=== PATIENT | male | born 1955 | race Caucasian/White ===

== ENCOUNTER → 2019-11-28 10:07 | Outpatient (BNVA) | payer MEDICARE, MEDICAID, SELFPAY | PROVIDERS: Family Provider Nurse Practitioner Family; PCP Nurse Practitioner Family; Visit Provider Nurse Practitioner | DX: G89.29 Other chronic pain (principal); M54.5 Low back pain; M25.562 Pain in left knee; E11.42 Type 2 diabetes mellitus with diabetic polyneuropathy; F17.210 Nicotine dependence, cigarettes, uncomplicated; Z79.891 Long term (current) use of opiate analgesic | CPT/HCPCS: 99213; 99214 ==

== ENCOUNTER → 2020-01-19 14:33 | Outpatient (BNVA) | payer MEDICARE, MEDICAID, SELFPAY | PROVIDERS: Family Provider Nurse Practitioner Family; PCP Nurse Practitioner Family; Visit Provider Anesthesiology | DX: G89.29 Other chronic pain (principal); M54.5 Low back pain; E11.42 Type 2 diabetes mellitus with diabetic polyneuropathy; F17.210 Nicotine dependence, cigarettes, uncomplicated; Z79.891 Long term (current) use of opiate analgesic; Z71.6 Tobacco abuse counseling | CPT/HCPCS: 99214 ==

== ENCOUNTER → 2020-05-24 08:31 | Outpatient (BNVA) | payer MEDICARE, MEDICAID, SELFPAY | PROVIDERS: Family Provider Nurse Practitioner Family; PCP Nurse Practitioner Family; Visit Provider Anesthesiology | DX: G89.29 Other chronic pain (principal); M54.41 Lumbago with sciatica, right side; M54.42 Lumbago with sciatica, left side; E11.42 Type 2 diabetes mellitus with diabetic polyneuropathy; F17.210 Nicotine dependence, cigarettes, uncomplicated; Z79.891 Long term (current) use of opiate analgesic | CPT/HCPCS: 99213; 99214 ==

== ENCOUNTER → 2020-07-24 08:06 | Outpatient (BNVA) | payer MEDICARE, MEDICAID, SELFPAY | PROVIDERS: Family Provider Nurse Practitioner Family; PCP Nurse Practitioner Family; Visit Provider Nurse Practitioner | DX: G89.29 Other chronic pain (principal); M54.42 Lumbago with sciatica, left side; M54.41 Lumbago with sciatica, right side; E11.42 Type 2 diabetes mellitus with diabetic polyneuropathy; I69.30 Unspecified sequelae of cerebral infarction; F17.210 Nicotine dependence, cigarettes, uncomplicated; Z79.891 Long term (current) use of opiate analgesic; Z71.6 Tobacco abuse counseling | CPT/HCPCS: 99213; 99214 ==

== ENCOUNTER → 2020-08-22 08:18 | Outpatient (BNVA) | payer MEDICARE, MEDICAID, SELFPAY | PROVIDERS: Family Provider Nurse Practitioner Family; PCP Nurse Practitioner Family; Visit Provider Anesthesiology | DX: G89.29 Other chronic pain (principal); M54.5 Low back pain; F17.210 Nicotine dependence, cigarettes, uncomplicated; Z79.891 Long term (current) use of opiate analgesic | CPT/HCPCS: 99213; 99214 ==

== ENCOUNTER → 2020-09-25 10:13 | Outpatient (BNVA) | payer MEDICARE, MEDICAID, SELFPAY | PROVIDERS: Family Provider Nurse Practitioner Family; PCP Nurse Practitioner Family; Visit Provider Orthopaedic Surgery | DX: Z96.652 Presence of left artificial knee joint (principal); M54.9 Dorsalgia, unspecified | CPT/HCPCS: 72100; 73560; 73565 ==

== ENCOUNTER → 2020-10-01 11:46 | Outpatient (BNVA) | payer MEDICARE, MEDICAID, SELFPAY | PROVIDERS: Family Provider Nurse Practitioner Family; PCP Nurse Practitioner Family; Visit Provider Family Medicine | DX: E11.9 Type 2 diabetes mellitus without complications (principal); I69.30 Unspecified sequelae of cerebral infarction; M21.372 Foot drop, left foot; J44.9 Chronic obstructive pulmonary disease, unspecified | CPT/HCPCS: 80053; 80061; 83036; 84443; 85025 ==

== ENCOUNTER → 2020-10-17 09:48 | Outpatient (BNVA) | payer MEDICARE, MEDICAID, SELFPAY | PROVIDERS: Family Provider Nurse Practitioner Family; PCP Nurse Practitioner Family; Visit Provider Anesthesiology | DX: G89.29 Other chronic pain (principal); M54.5 Low back pain; F17.210 Nicotine dependence, cigarettes, uncomplicated; Z79.899 Other long term (current) drug therapy; Z79.891 Long term (current) use of opiate analgesic | CPT/HCPCS: 99212; 99214 ==

== ENCOUNTER 2020-10-21 10:22 | Outpatient (CLI) | payer MEDICARE, MEDICAID, SELFPAY ==
--- NOTE | 2020-10-21 11:45 | MR_ITS ---
WS: [id number] MRI LUMBAR SPINE NONCONTRAST TECHNIQUE: Sagittal T1, T2 and STIR imaging. Axial T1 and T2 imaging. CLINICAL INFORMATION: M47.816 - Spondylosis without myelopathy or radiculopathy, lumbar region COMPARISON: None. FINDINGS: Mild lumbar curve. No acute compression. Slight retrolisthesis L4 on L5. L1-L2: Normal. L2-L3: No significant disc bulging. Mild facet arthropathy. Spinal canal and foramen are patent. L3-L4: Mild disc bulging with slight effacement of ventral thecal sac. Mild central canal stenosis. S light impingement traversing L4 nerve roots bilaterally. Moderate facet arthropathy. Foramen are centeno nt. L4-L5: Slight retrolisthesis L4 on L5 with mild disc bulging. Slight effacement of ventral thecal sac . Slight impingement traversing L5 nerve roots bilaterally. Small right foraminal protrusion with con tact of the exiting right L4 nerve root. Moderate right foraminal narrowing. Moderate facet arthropat hy. L5-S1: Mild disc bulging with osteophytic ridging. Moderate right and mild left foraminal narrowing. Slight contact of the traversing S1 nerve root. Moderate facet arthropathy. Visualized pelvic bony structures: Normal. Paravertebral soft tissues: Normal. MR/MR lumbar spine wo con* [id number] IMPRESSION: 1. Mild lumbar curve. No acute compression. Slight retrolisthesis L4 on L5. 2. Right foraminal protrusion L4-5 with slight impingement on the exiting righ t L4 nerve root. Moderate right L4-5 foraminal narrowing. 3. Mild central canal stenosis L3-4 due to disc bulging with facet arthropathy ligament flavum hypertrophy. Slight anterolisthesis L3 on L4. 4. Right eccentric disc osteophyte complex L5-S1 with moderate right foraminal narrowing and slight contact of the far exiting right L5 nerve root. 5. Tiny right pericentral disc osteophyte protrusion L5-S1 contacts the patricia sing right S1 nerve root.
== END 2020-10-21 10:23 | disposition home or self-care (01) ==
LOC: RADSHAW 10:26
PROVIDERS: Family Provider Nurse Practitioner Family; PCP Nurse Practitioner Family; Visit Provider Orthopaedic Surgery
DX: M47.816 Spondylosis without myelopathy or radiculopathy, lumbar region (principal); M51.26 Other intervertebral disc displacement, lumbar region; M25.78 Osteophyte, vertebrae
CPT/HCPCS: 72148

== ENCOUNTER → 2020-10-29 13:48 | Outpatient (BNVA) | payer MEDICARE, MEDICAID, SELFPAY | PROVIDERS: Family Provider Nurse Practitioner Family; PCP Nurse Practitioner Family; Visit Provider Orthopaedic Surgery | DX: M25.552 Pain in left hip (principal) | CPT/HCPCS: 73502 ==

== ENCOUNTER → 2021-01-17 10:04 | Outpatient (BNVA) | payer MEDICARE, MEDICAID, SELFPAY | PROVIDERS: Family Provider Nurse Practitioner Family; PCP Nurse Practitioner Family; Visit Provider Anesthesiology | DX: G89.29 Other chronic pain (principal); M54.5 Low back pain; M25.569 Pain in unspecified knee; M21.372 Foot drop, left foot; F17.210 Nicotine dependence, cigarettes, uncomplicated; Z79.899 Other long term (current) drug therapy; Z79.891 Long term (current) use of opiate analgesic | CPT/HCPCS: 99214 ==

== ENCOUNTER → 2021-03-20 09:29 | Outpatient (BNVA) | payer MEDICARE, MEDICAID, SELFPAY | PROVIDERS: Family Provider Nurse Practitioner Family; PCP Nurse Practitioner Family; Visit Provider Anesthesiology | DX: G89.29 Other chronic pain (principal); M54.5 Low back pain; E11.9 Type 2 diabetes mellitus without complications; F17.210 Nicotine dependence, cigarettes, uncomplicated; Z79.891 Long term (current) use of opiate analgesic | CPT/HCPCS: 62323; J1040; J3490 ==

== ENCOUNTER → 2021-03-21 08:11 | Outpatient (BNVA) | payer MEDICARE, MEDICAID, SELFPAY | PROVIDERS: Family Provider Nurse Practitioner Family; PCP Nurse Practitioner Family; Visit Provider Anesthesiology | DX: G89.29 Other chronic pain (principal); M54.5 Low back pain; M25.569 Pain in unspecified knee; M21.372 Foot drop, left foot; F17.210 Nicotine dependence, cigarettes, uncomplicated; Z79.899 Other long term (current) drug therapy; Z79.891 Long term (current) use of opiate analgesic | CPT/HCPCS: 99214 ==

== ENCOUNTER → 2021-04-09 14:47 | Outpatient (BNVA) | payer MEDICARE, MEDICAID, SELFPAY | PROVIDERS: Family Provider Nurse Practitioner Family; PCP Nurse Practitioner Family; Visit Provider Nurse Practitioner Family | DX: E11.9 Type 2 diabetes mellitus without complications (principal); E55.9 Vitamin D deficiency, unspecified; I10 Essential (primary) hypertension | CPT/HCPCS: 80053; 82306; 83036; 85025 ==

== ENCOUNTER → 2021-05-15 07:53 | Outpatient (BNVA) | payer MEDICARE, MEDICAID, SELFPAY | PROVIDERS: Family Provider Nurse Practitioner Family; PCP Nurse Practitioner Family; Visit Provider Anesthesiology | DX: G89.29 Other chronic pain (principal); M54.5 Low back pain; F17.210 Nicotine dependence, cigarettes, uncomplicated; Z79.891 Long term (current) use of opiate analgesic | CPT/HCPCS: 99213 ==

== ENCOUNTER → 2021-07-16 08:02 | Outpatient (BNVA) | payer MEDICARE, MEDICAID, SELFPAY | PROVIDERS: Family Provider Nurse Practitioner Family; PCP Nurse Practitioner Family; Visit Provider Anesthesiology | DX: G89.29 Other chronic pain (principal); M54.5 Low back pain; F17.210 Nicotine dependence, cigarettes, uncomplicated; Z79.891 Long term (current) use of opiate analgesic | CPT/HCPCS: 99213 ==

== ENCOUNTER → 2021-09-18 07:54 | Outpatient (BNVA) | payer MEDICARE, MEDICAID, SELFPAY | PROVIDERS: Family Provider Nurse Practitioner Family; PCP Nurse Practitioner Family; Visit Provider Anesthesiology | DX: G89.29 Other chronic pain (principal); M54.50 Low back pain, unspecified; F17.200 Nicotine dependence, unspecified, uncomplicated; Z79.899 Other long term (current) drug therapy; Z79.891 Long term (current) use of opiate analgesic; Z71.6 Tobacco abuse counseling | CPT/HCPCS: 99214 ==

== ENCOUNTER 2021-09-25 07:39 | Outpatient (CLI) | payer MEDICARE, MEDICAID, SELFPAY ==
--- NOTE | 2021-09-25 07:45 | USCV_ITS ---
Hudson Mariaelena Age: 66 Gender: M : 1955 Exam Date: 09/25/2021 07:33 Ordering Phys: Quang Lopez DPM Technologist: Robi Bhakta Extension Associate Exam [place] [facility] [place] Indication: PRE PROCEDURE SCREENING RIGHT LEFT Brachial 108.00 mmHg Brachial 143.00 mmHg Pressure (mmHg) Waveform Pressure (mmHg) Waveform 148.00 Above Knee 86.00 137.00 Below Knee 89.00 128.00 ENERGY RATER 74.00 142.00 DPA 90.00 0.99 Ankle/Brachial Index 0.60 123.00 Pre-Exercise Toe Pressure 69.00 0.86 Pre-Exercise Toe/Brachial Index 0.48 FINDINGS Normal resting NATALYA and TBI on the right side Diminished resting TBI and NATALYA on the left side Normal PVR waveforms on the right side Low velocity delayed peaking PVR waveforms at the calf and at the angle on the left side CONCLUSIONS 1. No significant arterial obstruction on the right side 2. Features of moderately severe peripheral artery disease possibly involving the superior femoral artery on the left side Dr Janna Morley MD [facility] (Electronically Signed) Final Date: 26 September 2021 13:06 S
== END 2021-09-25 07:40 | disposition home or self-care (01) ==
LOC: RAD 07:42
PROVIDERS: PCP Nurse Practitioner Family; Visit Provider Podiatrist Foot & Ankle Surgery
DX: Z01.818 Encounter for other preprocedural examination (principal)
CPT/HCPCS: 93923

== ENCOUNTER → 2021-11-20 07:49 | Outpatient (BNVA) | payer MEDICARE, MEDICAID, SELFPAY | PROVIDERS: PCP Nurse Practitioner Family; Visit Provider Anesthesiology | DX: G89.29 Other chronic pain (principal); M54.50 Low back pain, unspecified; M21.372 Foot drop, left foot; F17.200 Nicotine dependence, unspecified, uncomplicated; Z79.899 Other long term (current) drug therapy; Z79.891 Long term (current) use of opiate analgesic | CPT/HCPCS: 99213 ==

== ENCOUNTER → 2021-11-27 11:54 | Outpatient (BNVA) | payer MEDICARE, MEDICAID, SELFPAY | PROVIDERS: PCP Nurse Practitioner Family; Visit Provider Nurse Practitioner Family | DX: M54.50 Low back pain, unspecified (principal); G89.29 Other chronic pain; E11.9 Type 2 diabetes mellitus without complications; Z12.5 Encounter for screening for malignant neoplasm of prostate | CPT/HCPCS: 80053; 81003; 83036; 85025; G0103 ==

== ENCOUNTER → 2021-11-28 09:28 | Outpatient (BNVA) | payer MEDICARE, MEDICAID, SELFPAY | PROVIDERS: PCP Nurse Practitioner Family; Visit Provider Nurse Practitioner Family | DX: E11.9 Type 2 diabetes mellitus without complications (principal) | CPT/HCPCS: 84443 ==

== ENCOUNTER → 2021-12-16 10:42 | Outpatient (BNVA) | payer MEDICARE, MEDICAID, SELFPAY | PROVIDERS: PCP Nurse Practitioner Family; Visit Provider Nurse Practitioner Family | DX: R71.8 Other abnormality of red blood cells (principal) | CPT/HCPCS: 80500; 82270; 82607; 82746; 83550; 88184; 88185 ==

== ENCOUNTER → 2022-01-22 12:43 | Outpatient (BNVA) | payer MEDICARE, MEDICAID, SELFPAY | PROVIDERS: PCP Nurse Practitioner Family; Visit Provider Internal Medicine | DX: I70.212 Atherosclerosis of native arteries of extremities with intermittent claudication, left leg (principal); E11.40 Type 2 diabetes mellitus with diabetic neuropathy, unspecified; I10 Essential (primary) hypertension | CPT/HCPCS: 99204 ==

== ENCOUNTER → 2022-04-23 12:26 | Outpatient (BNVA) | payer MEDICARE, MEDICAID, SELFPAY | PROVIDERS: PCP Nurse Practitioner Family; Visit Provider Internal Medicine | DX: I70.212 Atherosclerosis of native arteries of extremities with intermittent claudication, left leg (principal); E11.40 Type 2 diabetes mellitus with diabetic neuropathy, unspecified; I10 Essential (primary) hypertension; F17.210 Nicotine dependence, cigarettes, uncomplicated; Z79.84 Long term (current) use of oral hypoglycemic drugs | CPT/HCPCS: 99214 ==

== ENCOUNTER → 2022-04-27 13:06 | Outpatient (BNVA) | payer MEDICARE, MEDICAID, SELFPAY | PROVIDERS: PCP Nurse Practitioner Family; Referring Provider Specialist; Visit Provider Specialist | DX: M25.562 Pain in left knee (principal); Z96.652 Presence of left artificial knee joint | CPT/HCPCS: 73560; 73565; 99204 ==

== ENCOUNTER 2022-05-05 06:00 | Outpatient (RCR) | payer MEDICARE, MEDICAID, SELFPAY | END 2022-05-07 23:59 | disposition home or self-care (01) | LOC: WPT 06:00 | PROVIDERS: PCP Nurse Practitioner Family; Referring Provider Specialist; Visit Provider Specialist | DX: M25.562 Pain in left knee (principal) | CPT/HCPCS: 97110; 97112; 97161 ==

== ENCOUNTER 2022-05-08 06:00 | Outpatient (RCR) | payer MEDICARE, MEDICAID, SELFPAY | END 2022-06-07 23:59 | disposition home or self-care (01) | LOC: WPT 06:00 | PROVIDERS: PCP Nurse Practitioner Family; Referring Provider Specialist; Visit Provider Specialist | DX: M25.562 Pain in left knee (principal) | CPT/HCPCS: 97110; 97112 ==

== ENCOUNTER 2022-06-08 06:00 | Outpatient (RCR) | payer MEDICARE, MEDICAID, SELFPAY | END 2022-07-08 23:59 | disposition home or self-care (01) | LOC: WPT 06:00 | PROVIDERS: PCP Nurse Practitioner Family; Visit Provider Specialist | DX: M25.562 Pain in left knee (principal) | CPT/HCPCS: 97110; 97112; 97164; 97530 ==

== ENCOUNTER 2022-07-09 06:00 | Outpatient (RCR) | payer MEDICARE, MEDICAID, SELFPAY | END 2022-08-07 23:59 | disposition home or self-care (01) | LOC: WPT 06:00 | PROVIDERS: PCP Nurse Practitioner Family; Visit Provider Specialist | DX: M25.562 Pain in left knee (principal) | CPT/HCPCS: 97110 ==

== ENCOUNTER 2022-12-28 14:00 | Emergency (ER) | payer MEDICARE, MEDICAID, SELFPAY ==
[2022-12-28 14:12] VITALS: BP 117/79; PULSE 95; TEMP 36.7; O2SAT 94; BMI 23.4
--- NOTE | 2022-12-28 14:22 | XR_ITS ---
WS: [id number] Exam: XR chest 1V portable [id number] Date/Time of Exam: 12/28/2022 2:22 PM Reason For Exam: dyspnea/cough Comparison 12/02/2018. The lungs are hyperinflated. No consolidating infiltrates. Normal cardiomediastinal silhouette. Large calcified granuloma along the left infrahilar region. Fibrous scarring and pleural thickening seen i n the right upper lung zone. Bony structures are intact. No pleural effusion. XR/XR chest 1V portable [id number] IMPRESSION: 1. Pulmonary hyperinflation suggesting obstructive lung disease. No acute infil trates. 2. Chronic pleural and pulmonary changes in the right upper lung zone.
--- NOTE | 2022-12-28 14:24 | CTR_ITS ---
PROCEDURE INFORMATION: Exam: CT Head Without Contrast Exam date and time: 12/28/2022 3:37 PM Age: 67 years old Clinical indication: Weakness, extremity; Left; Patient HX: HX of RT sided stroke; Additional info: L weakness TECHNIQUE: Imaging protocol: Computed tomography of the head without contrast. Radiation optimization: All CT scans at this facility use at least one of these dose optimization techniques: automated exposure control; mA and/or kV adjustment per patient size (includes targeted exams where dose is matched to clinical indication); or iterative reconstruction. Other protocol: This patient has received 0 known CTs and 0 known cardiac nuclear medicine studies in the 12 months prior to the current study. COMPARISON: No relevant prior studies available. RADIATION DOSE METRICS: Total DLP (mGy-cm): 1151.6 FINDINGS: Brain: Encephalomalacia in the right fronto parietal and temporal lobe.The batres-white differentiation is maintained. No hemorrhage. No edema.There are mild periventricular and subcortical lucencies consistent with chronic microvascular ischemic changes. Cerebral ventricles: No ventriculomegaly. Paranasal sinuses: Visualized sinuses are unremarkable. No fluid levels. Mastoid air cells: Visualized mastoid air cells are well aerated. Bones/joints: Unremarkable. No acute fracture. Soft tissues: Unremarkable. Right cataract surgery. CT/CT head wo con* [id number] IMPRESSION: No acute intracranial abnormality. Chronic microvascular ischemic changes.
[2022-12-28 14:31] LABS: Basophils # 0.1 10^3/uL (0.0-0.1); Basophils % 0.7 %; Eosinophils # 0.1 10^3/uL (0.0-0.8); Eosinophils % 1.1 %; Hemoglobin 17.4 g/dL (11.7-16.6); Lymphocytes # 1.6 10^3/uL (0.8-4.8); Mean Corpuscular HGB Conc 32.8 g/dL (30.0-36.0); Mean Corpuscular Hemoglobin 31.8 pg (28.0-34.0); Mean Corpuscular Volume 96.7 fl (80-94); Mean Platelet Volume 12.4 fL (7.4-10.4); Monocytes # 0.5 10^3/uL (0.2-0.9); Monocytes % 5.6 %; Neutrophils # 7.15 10^3/uL (1.8-7.7); Neutrophils % 74.8 %; Nucleated Red Blood Cells % 0 %; Platelet Count 177 10^3/cmm (130-400); Red Blood Count 5.48 10^6/uL (4.1-5.3); Red Cell Distribution Width 12.4 % (12.1-15.1); White Blood Count 9.6 10^3/uL (4.0-10.0)
--- NOTE | 2022-12-28 14:32 | ED_ITS ---
HPI - General Adult General: Chief complaint: General Medical Stated complaint: DEHYDRATED Time Seen by Provider: 12/28/22 14:21 Source: patient Mode of arrival: EMS History of Present Illness: 67-year-old male presents emergency complaining left-sided weakness he woke up with it this morning it was worse than his usual. He has a little bit of a headache as well he states all of his symptoms have resolved after EMS gave him IV fluids first liter is not even completed and he states he is completely resolved and feeling much better now. He denies chest pain or abdominal pain or any further symptoms. Headache is rather mild. He states his functional ability on his left side is back to where his baseline is from his previous stroke Onset (ago): minute(s) Severity: mild Associated symptoms: Deny chest pain, confusion, cough, diaphoresis, decreased appetite, dyspnea, fevers/chills, headache(s), malaise, nausea, rash, palpitations, seizures, short of breath, syncope, vomiting or weakness Review of Systems Const: Denies: fever(s), chills, fatigue, malaise or diaphoresis ENMT: Denies: throat pain, ear or mastoid pain, nasal discharge or nasal congestion Card: Denies: chest pain, palpitations or syncope Resp: Denies: dyspnea GI: Denies: nausea or vomiting : Denies: flank pain, dysuria, urinary frequency or urinary urgency Skin/Breast: Denies: rash Neuro: Denies: headache(s) or confusion PFSH ED PFSH: Medical History Chronic low back pain Diabetic foot Encounter for long-term opiate analgesic use Essential hypertension Long-term use of high-risk medication Opioid contract exists Prostate cancer screening Smoker unmotivated to quit Toenail deformity Vitamin D deficiency Surgical History Hx of toe surgery PIN PLACEMENT IN LEFT GREAT TOE S/P knee replacement LEFT KNEE REPLACEMENT 2019 Family History Other CHF (congestive heart failure) Cancer Social History Smoking and tobacco status: current every day smoker cigarettes Packs smoked per day: 2 Alcohol intake: current Alcohol intake frequency: holidays/special occasions only Alcohol type: beer Physical Exam Const: GENERAL APPEARANCE: cooperative and comfortable ORIENTATION/CONSCIOUSNESS: Yes awake, Yes oriented to person, Yes oriented to place and Yes oriented to time HENMT: COMMON NORMALS: normocephalic, atraumatic and hearing grossly normal bilaterally HEAD & SCALP: normocephalic and atraumatic Resp: COMMON NORMALS: normal respiratory effort, No retractions, No use of accessory muscles and clear to auscultation bilaterally AUSCULTATION: clear to auscultation bilaterally Cardio: COMMON NORMALS: regular rate, regular rhythm and No murmurs present (Cardio) RATE: regular rate RHYTHM: regular rhythm GI: COMMON NORMALS: Soft to palpation and No hepatosplenomegaly present AUSCULTATION: Yes normoactive bowel sounds PALPATION: Yes Soft to palpation, No Tenderness to palpation present (GI), No Guarding due to palpation present (GI) and Yes No hepatosplenomegaly present Extremity: COMMON NORMALS: normal to inspection, capillary refill normal, no clubbing, cyanosis or edema, no calf tenderness and no pedal edema Neuro: SENSORIUM/ORIENTATION: Yes oriented to person, Yes oriented to place and Yes oriented to time Skin: COMMON NORMALS: no rashes or lesions noted GENERAL SKIN EXAM: no rashes or lesions noted Course Vital Signs: Vital signs: Vital Signs Temperature 98.1 F 12/28/22 14:12 Pulse Rate 87 12/28/22 16:30 Respiratory Rate 18 12/28/22 16:30 Blood Pressure 114/72 12/28/22 16:30 Pulse Oximetry 97 12/28/22 16:30 Oxygen Delivery Me thod 12/28/22 16:30 [facility] - General Adult Medical Decision Making No acute neurologic deficits. All of his deficits are residual from his previous strokes otherwise doing well at this time.. He is improved with fluids. He has no focal deficits this time we will go ahead and discharge patient home have him follow-up with his primary care doctor return if is further problems. Lab Data 12/28/22 12:49 Radiology Impressions Chest X-Ray 12/28/22 14:22 IMPRESSION: 1. Pulmonary hyperinflation suggesting obstructive lung disease. No acute infiltrates. 2. Chronic pleural and pulmonary changes in the right upper lung zone. Head CT 12/28/22 14:24 IMPRESSION: No acute intracranial abnormality. Chronic microvascular ischemic changes. Laboratory Results WBC 9.6 10^3/uL (4.0-10.0) 12/28/22 12:49 RBC 5.48 10^6/uL (4.1-5.3) H 12/28/22 12:49 Hgb 17.4 g/dL (11.7-16.6) H 12/28/22 12:49 Hct 53.0 % (42.0-52.0) H 12/28/22 12:49 MCV 96.7 fl (80-94) H 12/28/22 12:49 MCH 31.8 pg (28.0-34.0) 12/28/22 12:49 MCHC 32.8 g/dL (30.0-36.0) 12/28/22 12:49 RDW 12.4 % (12.1-15.1) 12/28/22 12:49 Plt Count 177 10^3/cmm (130-400) 12/28/22 12:49 MPV 12.4 fL (7.4-10.4) H 12/28/22 12:49 Neut % (Auto) 74.8 % 12/28/22 12:49 Lymph % (Auto) 17.0 % 12/28/22 12:49 [place]ade % (Auto) 5.6 % 12/28/22 12:49 Eos % (Auto) 1.1 % 12/28/22 12:49 Baso % (Auto) 0.7 % 12/28/22 12:49 Neut # (Auto) 7.15 10^3/uL (1.8-7.7) 12/28/22 12:49 Lymph # (Auto) 1.6 10^3/uL (0.8-4.8) 12/28/22 12:49 [place]ade # (Auto) 0.5 10^3/uL (0.2-0.9) 12/28/22 12:49 Eos # (Auto) 0.1 10^3/uL (0.0-0.8) 12/28/22 12:49 Baso # (Auto) 0.1 10^3/uL (0.0-0.1) 12/28/22 12:49 Nucleated RBC % (auto) 0 % 12/28/22 12:49 Nucleated RBCs # 0.0 /100WBC 12/28/22 12:49 Sodium 135 mmol/L (136-145) L 12/28/22 15:33 Potassium 4.1 mmol/L (3.5-5.1) 12/28/22 15:33 Chloride 97 mmol/L (98-107) L 12/28/22 15:33 Carbon Dioxide 27 mmol/L (22-29) 12/28/22 15:33 Anion Gap 15.1 (5-19) 12/28/22 15:33 BUN 10 mg/dL (8-23) 12/28/22 15:33 Creatinine 0.8 mg/dL (0.7-1.2) 12/28/22 15:33 GFR Calculation 95.8 mL/min (90-130) 12/28/22 15:33 Glucose 176 mg/dL (65-115) H 12/28/22 15:33 Calculated Osmolality 283 mOsm/kg (285-295) L 12/28/22 15:33 Calcium 9.3 mg/dL (8.5-10.5) 12/28/22 15:33 Total Bilirubin 0.9 mg/dL (0.15-1.2) 12/28/22 15:33 AST 15 U/L (0-40) 12/28/22 15:33 ALT 13 U/L (0-41) 12/28/22 15:33 Alkaline Phosphatase 121 U/L (40-130) 12/28/22 15:33 Creatine Kinase 70 U/L (39-308) 12/28/22 15:33 Total Protein 7.4 g/dL (6.6-8.7) 12/28/22 15:33 Albumin 3.7 g/dL (3.5-5.2) 12/28/22 15:33 Globulin 3.7 g/dL (1.3-4.6) 12/28/22 15:33 Urine Color Yellow (Yellow) 12/28/22 15:13 Urine Appearance Clear (CLEAR) 12/28/22 15:13 Urine pH 7 (5-7) 12/28/22 15:13 Ur Specific [place] 1.005 (1.005-1.030) 12/28/22 15:13 Urine Protein Neg (Negative) 12/28/22 15:13 Urine Glucose (UA) 1+ (Normal) H 12/28/22 15:13 Urine Ketones Negative (Negative) 12/28/22 15:13 Urine Blood Neg (Negative) 12/28/22 15:13 Urine Nitrate Negative (Negative) 12/28/22 15:13 Urine Bilirubin Neg (Negative) 12/28/22 15:13 Urine Urobilinogen Norm mg/dL (Negative) 12/28/22 15:13 Ur Leukocyte Esterase Negative (Negative) 12/28/22 15:13 Discharge Plan Discharge Patient Disposition: Home Clinical Impression: Hypotension, postural, History of CVA with residual deficit Condition: Stable Prescriptions: No Action (DME) Diabetic shoes with 3 sets of insoles See Rx Instructions .Route .MEDSUPPLY Qty: 1 0RF Rx Instructions: As directed silver sulfadiazine 1 % cream 1 applic topical BID 14 Days Qty: 50 2RF Rx Instructions: apply a 1.5 mm thickness (DME) custom molded accommodative orthotics See Rx Instructions .Route .MEDSUPPLY Qty: 1 0RF Rx Instructions: As directed by chaka and elieser gabapentin 400 mg capsule 400 mg PO TID 30 Days Qty: 90 1RF doxycycline hyclate 100 mg capsule 100 mg PO BID 7 Days Qty: 14 0RF aspirin 81 mg tablet,delayed release (DR/EC) See Rx Instructions .ROUTE .COMPLEX Qty: 30 0RF Dose Instruction: TAKE ONE TABLET BY MOUTH DAILY FOR 30 DAYS Rx Instructions: TAKE ONE TABLET BY MOUTH DAILY FOR 30 DAYS Trulicity 1.5 mg/0.5 mL pen injector See Rx Instructions .ROUTE .COMPLEX Qty: 2 2RF Dose Instruction: INJECT 1.5 mg SUB-Q ONCE A WEEK Rx Instructions: INJECT 1.5 mg SUB-Q ONCE A WEEK tamsulosin 0.4 mg capsule See Rx Instructions .ROUTE .COMPLEX Qty: 30 2RF Dose Instruction: TAKE ONE CAPSULE BY MOUTH EVERY DAY; (PT MUST MAKE APPT BEFORE ADDITIONAL REFILLS) Rx Instructions: TAKE ONE CAPSULE BY MOUTH EVERY DAY; (PT MUST MAKE APPT BEFORE ADDITIONAL REFILLS) atorvastatin 20 mg tablet See Rx Instructions .ROUTE .COMPLEX Qty: 30 2RF Dose Instruction: TAKE ONE TABLET BY MOUTH DAILY Rx Instructions: TAKE ONE TABLET BY MOUTH DAILY metformin 1,000 mg tablet See Rx Instructions .ROUTE .COMPLEX Qty: 180 0RF Dose Instruction: TAKE 1 TABLET BY MOUTH TWICE DAILY FOR 90 DAYS Rx Instructions: TAKE 1 TABLET BY MOUTH TWICE DAILY FOR 90 DAYS Discharge Orders: Discharge ED (Routine); Ordered 12/28/22 Ordered By: Mauricio Gilliland Referrals: ABNER Carson, PR[employer] SUPPORT REP [Primary Care Provider] - Discharge Diet: Usual diet Discharge Activity: Resume usual activity Patient Instructions: Opioid Safety, Pain Management Activity Restrictions/Additional Instructions: You were seen today for a brief episode of weakness. Your symptoms improved after given IV fluids CT of your head and laboratory tests did not show any acute changes. Strongly encouraged to stop smoking. Continue all your previous medications and follow-up as needed Coding Level of Care Code ED Armature Winder for Sanjay Shafer
--- NOTE | 2022-12-28 14:45 | ECG_ITS ---
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 Measurements Intervals Prentiss Rate: P: 0 AR: 0 QRS: 0 QRSD: 0 T: 0 QT: 0 QTc: 0 Interpretive Statements Sinus rhythm with short runs of PAT. Poor R wave progression. ATYPICAL ECG WARNING: DATA QUALITY MAY AFFECT INTERPRETATION Compared to ECG 12/02/2018 12:22:53 Sinus rhythm no longer present Myocardial infarct finding no longer present Electronically Signed On 12-28-2022 19:09:28 HEDDLER TIER by Janna Morley M.D. [email or web address] [id number]
[2022-12-28 15:03] VITALS: BP 93/70; RESP 18; O2SAT 95
[2022-12-28 15:17] VITALS: BP 105/79; BP 107/85; BP 96/70; PULSE 86; PULSE 93; PULSE 94
[2022-12-28 15:25] LABS: Add Urine Microscopic? NO; Charge for UA Resulting for Rev
[2022-12-28 15:32] LABS: Urine Appearance Clear (CLEAR); Urine Color Yellow (Yellow)
[2022-12-28 15:33] LABS: Bilirubin Urine Neg (Negative); Blood Urine Neg (Negative); Glucose Urine UA 1+ (Normal); Ketones Urine Negative (Negative); Leukocyte Esterase Urine Negative (Negative); Nitrate Urine Negative (Negative); Protein Urine Neg (Negative); Specific Gravity, Urine 1.005 (1.005-1.030); Urobilinogen Urine Norm (Negative); pH Urine 7 (5-7)
[2022-12-28 15:58] LABS: Alanine Aminotransferase 13 U/L (0-41); Albumin Level 3.7 g/dL (3.5-5.2); Alkaline Phosphatase 121 U/L (40-130); Anion Gap 15.1 (5-19); Aspartate Amino Transferase 15 U/L (0-40); Blood Urea Nitrogen 10 mg/dL (8-23); Calcium 9.3 mg/dL (8.5-10.5); Carbon Dioxide 27 mmol/L (22-29); Chloride 97 mmol/L (98-107); Creatine Phosphokinase 70 U/L (39-308); Globulin 3.7 g/dL (1.3-4.6); Glomerular Filtration Rate 95.8 mL/min (90-130); Glucose 176 mg/dL (65-115); Osmolality Calculated 283 mOsm/kg (285-295); Potassium 4.1 mmol/L (3.5-5.1); Sodium 135 mmol/L (136-145); Total Bilirubin 0.9 mg/dL (0.15-1.2); Total Protein 7.4 g/dL (6.6-8.7)
[2022-12-28 16:30] VITALS: BP 114/72; PULSE 87; RESP 18; O2SAT 97
== END 2022-12-28 16:32 | disposition home or self-care (01) ==
PROVIDERS: Emergency Provider Family Medicine; PCP Nurse Practitioner Family
DX: I95.1 Orthostatic hypotension (principal); Z86.73 Personal history of transient ischemic attack (TIA), and cerebral infarction without residual deficits; Z79.82 Long term (current) use of aspirin; Z79.85 Long-term (current) use of injectable non-insulin antidiabetic drugs; Z79.84 Long term (current) use of oral hypoglycemic drugs; E11.9 Type 2 diabetes mellitus without complications; I10 Essential (primary) hypertension; F17.210 Nicotine dependence, cigarettes, uncomplicated
CPT/HCPCS: 36415; 70450; 71045; 80053; 81003; 82550; 85025; 93005; 99285

== ENCOUNTER → 2023-08-12 09:44 | Outpatient (BNVA) | payer MEDICARE, MEDICAID, SELFPAY | PROVIDERS: PCP Nurse Practitioner Family; Visit Provider Nurse Practitioner Family | DX: E11.9 Type 2 diabetes mellitus without complications (principal); N40.0 Benign prostatic hyperplasia without lower urinary tract symptoms | CPT/HCPCS: 80048; 83036 ==

== ENCOUNTER → 2023-09-15 09:36 | Outpatient (BNVA) | payer MEDICARE, MEDICAID, SELFPAY | PROVIDERS: PCP Nurse Practitioner Family; Visit Provider Nurse Practitioner Family | DX: E11.40 Type 2 diabetes mellitus with diabetic neuropathy, unspecified (principal) | CPT/HCPCS: 82962 ==

== ENCOUNTER → 2023-09-16 08:24 | Outpatient (BNVA) | payer MEDICARE, MEDICAID, SELFPAY | PROVIDERS: PCP Nurse Practitioner Family; Visit Provider Nurse Practitioner Family | DX: E11.52 Type 2 diabetes mellitus with diabetic peripheral angiopathy with gangrene (principal); E11.621 Type 2 diabetes mellitus with foot ulcer; L97.422 Non-pressure chronic ulcer of left heel and midfoot with fat layer exposed | CPT/HCPCS: 11042; 99213 ==

== ENCOUNTER → 2023-09-23 09:27 | Outpatient (BNVA) | payer MEDICARE, MEDICAID, SELFPAY | PROVIDERS: PCP Nurse Practitioner Family; Visit Provider Nurse Practitioner Family | DX: E11.52 Type 2 diabetes mellitus with diabetic peripheral angiopathy with gangrene (principal); E11.621 Type 2 diabetes mellitus with foot ulcer; L97.421 Non-pressure chronic ulcer of left heel and midfoot limited to breakdown of skin | CPT/HCPCS: 97597 ==

== ENCOUNTER → 2023-10-07 08:07 | Outpatient (BNVA) | payer MEDICARE, MEDICAID, SELFPAY | PROVIDERS: PCP Nurse Practitioner Family; Visit Provider Nurse Practitioner Family | DX: E11.621 Type 2 diabetes mellitus with foot ulcer (principal); E11.52 Type 2 diabetes mellitus with diabetic peripheral angiopathy with gangrene; L97.422 Non-pressure chronic ulcer of left heel and midfoot with fat layer exposed | CPT/HCPCS: 11042; 97597; A6210 ==

== ENCOUNTER → 2023-10-14 07:58 | Outpatient (BNVA) | payer MEDICARE, MEDICAID, SELFPAY | PROVIDERS: PCP Nurse Practitioner Family; Visit Provider Nurse Practitioner Family | DX: E11.52 Type 2 diabetes mellitus with diabetic peripheral angiopathy with gangrene (principal); E11.621 Type 2 diabetes mellitus with foot ulcer; L97.421 Non-pressure chronic ulcer of left heel and midfoot limited to breakdown of skin; Z09 Encounter for follow-up examination after completed treatment for conditions other than malignant neoplasm | CPT/HCPCS: 97597; A6212; A6219 ==

== ENCOUNTER → 2023-10-21 07:59 | Outpatient (BNVA) | payer MEDICARE, MEDICAID, SELFPAY | PROVIDERS: PCP Nurse Practitioner Family; Visit Provider Nurse Practitioner Family | DX: E11.52 Type 2 diabetes mellitus with diabetic peripheral angiopathy with gangrene (principal); E11.621 Type 2 diabetes mellitus with foot ulcer; L97.422 Non-pressure chronic ulcer of left heel and midfoot with fat layer exposed | CPT/HCPCS: 11042; A6210 ==

== ENCOUNTER → 2023-10-28 07:58 | Outpatient (BNVA) | payer MEDICARE, MEDICAID, SELFPAY | PROVIDERS: PCP Nurse Practitioner Family; Visit Provider Thoracic Surgery (Cardiothoracic Vascular Surgery) | DX: E11.52 Type 2 diabetes mellitus with diabetic peripheral angiopathy with gangrene (principal); E11.621 Type 2 diabetes mellitus with foot ulcer; L97.421 Non-pressure chronic ulcer of left heel and midfoot limited to breakdown of skin; E11.622 Type 2 diabetes mellitus with other skin ulcer; L97.822 Non-pressure chronic ulcer of other part of left lower leg with fat layer exposed | CPT/HCPCS: 97597; A6210 ==

== ENCOUNTER → 2023-11-04 07:56 | Outpatient (BNVA) | payer MEDICARE, MEDICAID, SELFPAY | PROVIDERS: PCP Nurse Practitioner Family; Visit Provider Nurse Practitioner Family | DX: E11.52 Type 2 diabetes mellitus with diabetic peripheral angiopathy with gangrene (principal); E11.621 Type 2 diabetes mellitus with foot ulcer; L97.421 Non-pressure chronic ulcer of left heel and midfoot limited to breakdown of skin; E11.622 Type 2 diabetes mellitus with other skin ulcer; L97.822 Non-pressure chronic ulcer of other part of left lower leg with fat layer exposed | CPT/HCPCS: 97597; A6210; A6212 ==

== ENCOUNTER → 2023-11-11 08:00 | Outpatient (BNVA) | payer MEDICARE, MEDICAID, SELFPAY | PROVIDERS: PCP Nurse Practitioner Family; Visit Provider Nurse Practitioner Family | DX: E11.52 Type 2 diabetes mellitus with diabetic peripheral angiopathy with gangrene (principal); E11.621 Type 2 diabetes mellitus with foot ulcer; L97.822 Non-pressure chronic ulcer of other part of left lower leg with fat layer exposed; S81.802D Unspecified open wound, left lower leg, subsequent encounter; W22.8XXD Striking against or struck by other objects, subsequent encounter | CPT/HCPCS: 97597; A6210; A6219 ==

== ENCOUNTER → 2023-11-18 07:58 | Outpatient (BNVA) | payer MEDICARE, MEDICAID, SELFPAY | PROVIDERS: PCP Nurse Practitioner Family; Visit Provider Nurse Practitioner Family | DX: Z09 Encounter for follow-up examination after completed treatment for conditions other than malignant neoplasm (principal); Z87.2 Personal history of diseases of the skin and subcutaneous tissue | CPT/HCPCS: 99212; A6219 ==

== ENCOUNTER → 2024-03-21 10:09 | Outpatient (BNVA) | payer MEDICARE, MEDICAID, SELFPAY | PROVIDERS: PCP Nurse Practitioner Family; Visit Provider Nurse Practitioner Family | DX: Z12.5 Encounter for screening for malignant neoplasm of prostate (principal); M25.572 Pain in left ankle and joints of left foot; G89.29 Other chronic pain; M25.372 Other instability, left ankle; I10 Essential (primary) hypertension; E11.9 Type 2 diabetes mellitus without complications; E55.9 Vitamin D deficiency, unspecified | CPT/HCPCS: 73610; 80053; 80061; 81003; 82306; 82962; 83036; 84443; 85025; G0103 ==

== ENCOUNTER 2024-04-25 06:00 | Outpatient (RCR) | payer MEDICARE, MEDICAID, SELFPAY | END 2024-05-07 23:59 | disposition home or self-care (01) | LOC: WPT 06:00 | PROVIDERS: PCP Nurse Practitioner Family; Visit Provider Nurse Practitioner Family | DX: M54.50 Low back pain, unspecified (principal) | CPT/HCPCS: 97110; 97112; 97163; 97530 ==

== ENCOUNTER 2024-05-08 06:00 | Outpatient (RCR) | payer MEDICARE, MEDICAID, SELFPAY | END 2024-06-07 23:59 | disposition home or self-care (01) | LOC: WPT 06:00 | PROVIDERS: PCP Nurse Practitioner Family; Visit Provider Nurse Practitioner Family | DX: M54.50 Low back pain, unspecified (principal) | CPT/HCPCS: 97110; 97112; 97140; 97530 ==

== ENCOUNTER → 2024-05-22 11:40 | Outpatient (BNVA) | payer MEDICARE, MEDICAID, SELFPAY | PROVIDERS: PCP Nurse Practitioner Family; Visit Provider Internal Medicine | DX: I70.212 Atherosclerosis of native arteries of extremities with intermittent claudication, left leg (principal); I10 Essential (primary) hypertension; Z72.0 Tobacco use; E11.40 Type 2 diabetes mellitus with diabetic neuropathy, unspecified; Z79.84 Long term (current) use of oral hypoglycemic drugs; Z79.85 Long-term (current) use of injectable non-insulin antidiabetic drugs | CPT/HCPCS: 99214 ==

== ENCOUNTER 2024-06-01 08:00 | Outpatient (CLI) | payer MEDICARE, MEDICAID, SELFPAY ==
--- NOTE | 2024-06-01 08:00 | CTR_ITS ---
PROCEDURE INFORMATION: Exam: CTA Abdominal Aorta and Bilateral Lower Extremities (Run-off) With Contrast Exam date and time: 06/01/2024 8:10 AM Age: 69 years old Clinical indication: Other: Bilateral leg pain; Prior surgery; Surgery date: 6+ months; Surgery type: Knee replacement TECHNIQUE: Imaging protocol: Computed tomographic angiography of the of the abdominal aorta, pelvis and bilateral lower extremities with contrast. 3D rendering (Not supervised by radiologist): MIP and/or 3D reconstructed images were created by the technologist. Radiation optimization: All CT scans at this facility use at least one of these dose optimization techniques: automated exposure control; mA and/or kV adjustment per patient size (includes targeted exams where dose is matched to clinical indication); or iterative reconstruction. Contrast material: ISOVUE 350; Contrast volume: 125 ml; Contrast route: INTRAVENOUS (IV); COMPARISON: CR XR ankle LT min 3V* [id number] 03/21/2024 11:13 AM RADIATION DOSE METRICS: Total DLP (mGy-cm): 610.97 FINDINGS: Aorta: Moderate atherosclerosis. No aortic aneurysm. No aortic dissection. Celiac trunk and mesenteric arteries: No occlusion or significant stenosis. Renal arteries: No occlusion or significant stenosis. Right iliac arteries: Mild stenosis of the right external iliac artery. Right femoral/popliteal arteries: Multifocal atherosclerosis. No occlusion or significant stenosis. Right infrapopliteal arteries: Multifocal areas of calcifications. No occlusion or significant stenosis. Left iliac arteries: Severe stenosis of the left external iliac artery secondary to calcified and noncalcified plaque. Left femoral/popliteal arteries: 5 cm occlusion of the mid-distal left superficial femoral artery. Moderate stenosis of the left popliteal artery. Left infrapopliteal arteries: The left posterior tibial and peroneal arteries are patent to the level of the ankle. The left anterior tibial artery is not opacified in the distal calf and ankle. Veins: Retroaortic left renal vein. Lungs: Bibasilar atelectasis. Liver: No mass. Gallbladder and biliary ducts: Unremarkable. No calcified stones. No ductal dilation. Pancreas: Unremarkable. No mass. No ductal dilation. Spleen: Normal. No splenomegaly. Adrenal glands: Normal. No mass. Kidneys and ureters: Normal. No mass. Stomach and bowel: Moderate colonic stool burden. No obstruction. No mucosal thickening. Appendix: Normal appendix. Urinary bladder: Unremarkable. No mass. Reproductive: Unremarkable as visualized. Intraperitoneal space: Unremarkable. No free air. No significant fluid collection. Lymph nodes: No lymphadenopathy. Bones/joints: No acute fracture. Status post left knee arthroplasty. Soft tissues: Unremarkable. CT/CT angio abd aorta runof [id number] IMPRESSION: 1. 5 cm occlusion of the mid-distal left superficial femoral artery. 2. Severe stenosis of the left external iliac artery. 3. Moderate stenosis of the left popliteal artery. 4. Two-vessel runoff to the left ankle via the left posterior tibial and peroneal arteries. 5. Three-vessel runoff to the right ankle.
[2024-06-01 08:03] LABS: Blood Urea Nitrogen 14 mg/dL (8-23)
[2024-06-01] MEDS: iohexol 350 mg/mL 500 mL Btl (per mL) IV (08:37)
== END 2024-06-01 08:01 | disposition home or self-care (01) ==
PROVIDERS: Radiology Neuroradiology; PCP Nurse Practitioner Family; Visit Provider Internal Medicine
DX: I70.203 Unspecified atherosclerosis of native arteries of extremities, bilateral legs (principal); I70.0 Atherosclerosis of aorta; I70.8 Atherosclerosis of other arteries; J98.11 Atelectasis; K59.00 Constipation, unspecified; I73.9 Peripheral vascular disease, unspecified; M79.604 Pain in right leg; M79.605 Pain in left leg
CPT/HCPCS: 75635; 82565; 84520; Q9967

== ENCOUNTER 2024-06-08 06:00 | Outpatient (RCR) | payer MEDICARE, MEDICAID, SELFPAY | END 2024-07-08 23:59 | disposition home or self-care (01) | LOC: WPT 06:00 | PROVIDERS: PCP Nurse Practitioner Family; Visit Provider Nurse Practitioner Family | DX: M54.50 Low back pain, unspecified (principal) | CPT/HCPCS: 97110; 97112; 97530 ==

== ENCOUNTER 2024-06-09 11:08 | Outpatient (CLI) | payer MEDICARE, MEDICAID, SELFPAY ==
--- NOTE | 2024-06-09 11:10 | USCV_ITS ---
Mariaelena Treviño Age: 69 Gender: M : 1955 Exam Date: 06/09/2024 11:21 Ordering Phys: ABNER Carson APRN Technologist: CT Exam [place] [facility] [place] Indication: copd,murmur BP: 144 / 70 HR: 77 Rhythm: Sinus Technical Quality: Technically difficult study, Poor windows,copd MEASUREMENTS (Male / Female) Normal Values 2D ECHO LVOT Diameter 1.8 cm LV Ejection Fraction MOD 4C 73.0 % LV Ejection Fraction MOD 2C 50.9 % LV Ejection Fraction 2C AL 54.2 % LA Diameter 2.8 cm LA Sys Volume AL 34.3 cm cubed LA Sys Volume Index AL 17.7 cm cubed/m squared Aorta at Sinotubular Diameter 2.7 cm IVC Diameter 1.8 cm DOPPLER AV Peak Velocity 222.0 cm/s LVOT Peak Velocity 94.0 cm/s AV Area Cont Eq vti 1.0 cm squared AV Area Cont Eq pk 1.1 cm squared MV Peak Velocity 83.0 cm/s MV Area PHT 3.5 cm squared Mitral E to A Ratio 0.9 TV Peak E Velocity 55.0 cm/s Right Atrial Pressure 3.0 mmHg FINDINGS Left Ventricle Views are limited. Left ventricular size and function are probably normal. Ejection fraction is 55 to 60%. Grade 1 diastolic dysfunction. Right Ventricle Normal right ventricular size and systolic function. Right Atrium The right atrium is normal in size. Left Atrium The left atrium is normal in size. Mitral Valve Structurally normal mitral valve without significant stenosis or prolapse. There is no mitral regurgitation. Aortic Valve Mild aortic valve calcification. Mild aortic valve stenosis, mean gradient 11.6 mmHg, DAX 1 cm squared. Mild aortic valve regurgitation. Tricuspid Valve Tricuspid valve not well visualized. Pulmonic Valve Pulmonic valve not well visualized. Pericardium Normal pericardium without effusion. Aorta Normal ascending aorta dimension. IVC Inferior vena cava not visualized. CONCLUSIONS Views are limited. Left ventricular size and function are probably normal. Ejection fraction is 55 to 60%. Grade 1 diastolic dysfunction. Mild aortic valve calcification. Mild aortic valve stenosis, mean gradient 11.6 mmHg, DAX 1 cm squared. Mild aortic valve regurgitation. There are no prior echocardiogram studies to compare. Dr. Tanner Dowell MD (Electronically Signed) Final Date: 09 June 2024 12:42 S
== END 2024-06-09 11:09 | disposition home or self-care (01) ==
LOC: RAD 11:08
PROVIDERS: PCP Nurse Practitioner Family; Visit Provider Nurse Practitioner Family
DX: I50.30 Unspecified diastolic (congestive) heart failure (principal); I35.1 Nonrheumatic aortic (valve) insufficiency; I35.0 Nonrheumatic aortic (valve) stenosis
CPT/HCPCS: 93306

== ENCOUNTER 2024-06-29 07:23 | Outpatient (CLI) | payer MEDICARE, MEDICAID, SELFPAY ==
[2024-06-29] VITALS (93 sets, daily range): BP systolic 102–190; BP diastolic 47–83; PULSE 53–86; RESP 0–22; TEMP 36.2–36.8; O2SAT 83–100; BMI 22.1; BMI 3444.1
[2024-06-29] MEDS: aspirin 325 mg Tablet PO (07:45)
[2024-06-29] MEDS: diphenhydrAMINE 50 mg Capsule PO (07:45)
[2024-06-29 07:55] LABS: Basophils # 0.1 10^3/uL (0.0-0.1); Basophils % 0.9 %; Eosinophils # 0.2 10^3/uL (0.0-0.8); Eosinophils % 2.6 %; Hematocrit 54.2 % (37-53); Lymphocytes # 1.1 10^3/uL (0.8-4.8); Lymphocytes % 18.6 %; Mean Corpuscular HGB Conc 33.4 g/dL (30-55); Mean Corpuscular Hemoglobin 32.1 pg (27-33); Mean Corpuscular Volume 96.3 fl (82-101); Mean Platelet Volume 10.7 fL (7.4-10.4); Monocytes # 0.5 10^3/uL (0.2-0.9); Monocytes % 8.4 %; Neutrophils # 4.06 10^3/uL (1.8-7.7); Neutrophils % 69.3 %; Nucleated Red Blood Cells % 0 %; Platelet Count 144 10^3/cmm (157-399); Red Blood Count 5.63 10^6/uL (3.85-5.65); Red Cell Distribution Width 12.7 % (12.1-15.1); White Blood Count 5.85 10^3/uL (3.29-11.43)
[2024-06-29 08:09] LABS: Anion Gap 13.9 (5-19); Blood Urea Nitrogen 17 mg/dL (8-23); Calcium 9.2 mg/dL (8.5-10.5); Carbon Dioxide 27 mmol/L (22-29); Chloride 102 mmol/L (98-107); Creatinine Clr Calc Pharmacy 91.2027; Glucose 190 mg/dL (65-115); Osmolality Calculated 295 mOsm/kg (285-295); Potassium 3.9 mmol/L (3.5-5.1); Sodium 139 mmol/L (136-145)
--- NOTE | 2024-06-29 08:30 | XACV_ITS ---
Ht: 183 cm Wt: 74 kg BSA: 1.94 m2 Any Known Allergies: No known allergies Gender: Male : 1955 Exam Type: Invasive Peripheral Vascular Procedure(s): Procedure Description: Diagnostic procedure Procedure Description: Peripheral Cath Diagnostic Procedure Procedure Description: Abdominal aortic angiography Procedure Description: Lower extremities' angiography Procedure Description: Peripheral vascular Intervention Procedure Description: PV Balloon Procedure Description: PV Stent Procedure Description: PV Atherectomy Procedure Description: Miscellaneous Procedure Description: ACT Exam Priority: Routine Abdominal Diagnostic Findings Distal abdominal aorta is patent. Lower Extremity Diagnostic Findings INDICATION: Severe lifestyle limiting claudication of left lower extremity. Left lower extremity findings:Left common iliac artery is patent. Left external iliac artery has distal vessel 70 to 80% focal lesion. Left internal iliac artery is patent. Left common femoral artery is patent. The left profunda artery is patent. Left SFA has severe diffuse disease in proximal to mid segment and mid segment is totally occluded. Distal SFA reconstitutes via collateral blood supply. Visualization of popliteal artery is limited secondary to knee prosthesis however CTA head showed moderate disease. Below the knee patient has three-vessel runoff.. Right lower extremity runoff was not selectively performed. However on aortic angiogram, patent common iliac, external iliac and common femoral artery seen. Left Mid-longitudinal Superficial Femoral Artery: 100% stenosis. Left External Iliac Artery: 70% stenosis. Left Distal Superficial Femoral Artery: 70% stenosis. Lower Extremity Interventional Findings Left Mid-longitudinal Superficial Femoral Artery: 100% stenosis treated with orbital arthrectomy and 6.0x100 Lutonix DCB. Left Distal Superficial Femoral Artery:treated with 5.0x80 Supera Stent. Procedure detail: After diagnostic images were obtained, we switched right common femoral artery short sheath to a long sheath that went up and over to the left external iliac artery. Using seeker support catheter and Glidewire we crossed totally occluded SFA and wire was placed in the TP segment. We then proceeded with orbital arthrectomy using CSI and several runs were performed from proximal to distal SFA. This was followed by balloon angioplasty with 6.0 x 100 mm Lutonix drug-coated balloon. We then performed balloon angioplasty of left external iliac artery with 7.0x40mm ARMADA balloon. At this time angiogram showed distal SFA dissection however with good flow. We covered the dissection area with 5.0 x 80 mm Supera stent. Final angiogram showed excellent flow in the left lower extremity. 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 Left External Iliac Artery: 70% stenosis treated with AB ARMADA 35 OTW [id number]. Conclusions Severe left lower extremity peripheral artery disease status post successful revascularization with orbital arthrectomy, drug-coated balloon angioplasty and 1 stent placement to SFA. Successful vascularization of left external iliac artery with balloon angioplasty.. Left External Iliac Artery was treated with Balloon. Left Mid-longitudinal Superficial Femoral Artery was treated with Balloon. Left Distal Superficial Femoral Artery was treated with Stent. Recommendations Dual antiplatelet therapy with aspirin and plavix. Statin therapy. Smoking cessation. Outpatient cardiology follow up in 2 weeks. Hemodynamic Data Phase:Rest AO : 116.0 / 38.0 ( 65.0 ) @ 10:50:00 AM 90.0 / 46.0 ( 64.0 ) @ 11:04:00 AM 83.0 / 39.0 ( 57.0 ) @ 11:07:00 AM 84.0 / 43.0 ( 60.0 ) @ 11:10:00 AM 98.0 / 49.0 ( 69.0 ) @ 11:12:00 AM 85.0 / 48.0 ( 64.0 ) @ 11:42:00 AM Access Site Site: Right Femoral artery Sheath Size: 6 Fr Hemost... Method: Suture Hemost... Success: Successful Procedure Details Findings Procedure Consent Obtained. Pre-Procedure Time Out. Identified patient by full name and date of as verbalized by the patient/guarantor. Does the consent match the physician's order: Yes. Accurate & Complete Informed Consent: Yes. Inpatient/Outpatient History & Physical on Chart: Yes. If H&P is completed, is and addenduem needed: No; If yes, is the addendum complete: N/A. Visualize and Verify Site with Patient/Guarantor: N/A. Relevant Radiology Images available: Yes. Pre-op teaching completed and patient verbalized understanding. The risks, benefits, and alternatives of sedation and/or procedure were discussed by physician. The patient agrees to continue. Procedure started. Correct patient, site and procedure confirmed by cath team. PERRLA. Strong, equal hand motorcycle maker bilaterally. Lungs clear x 5 lobes. IV Site on Arrival: 20 gauge in the right anticubital. IV Fluids: 0.9% NaCl at KVO. 0 mL infused prior to laborer tan house. Pre Procedural Pulses: bilateral radial was 2+. Pre Procedural Pulses: right dorsalis pedis was 2+. Pre Procedural Pulses: left dorsalis pedis was Doppled. Pre Procedural Pulses: right posterior tibial was 2+. Pre Procedural Pulses: left posterior tibial was Doppled. Oxygen started at 2liters/min via nasal canula. bilateral groins was prepped with chloroprep then draped in the usual sterile fashion. Baseline sample Acquired. HR: 67 BPM. Physician arrived. Physician scrubbed in. Immediate Pre-Procedure Time Out. Correct Patient: Yes; Correct Procedure: Yes; Correct Site: Yes; Correct Patient Position: Yes; Correct Supplies: Yes; Dried Flammable Prep: Yes; Blood Products Available: N/A;. Lidocaine 1% infiltrated to the right groin. Arterial access obtained with micropuncture set. A 5Fr UF catheter in over the glidewire. Abdominal aortogram performed in AP @ 10 mL/sec for a total of 30 mL. Glidewire inserted. Catheter removed over the glide wire. The short sheath exchanged for a 6FR 45cm Flexor sheath. Seeker catheter inserted OTW. Wire out. DSA performed of the left lower leg. Viper wire inserted. 1.5 Diamondback josé manuel inserted OTW and advanced to the left SFA. Orbital athrectomy performed. José Manuel removed OTW. Seeker inserted OTW. Viper wire removed. Glidewire inserted. Inflation number : 1 A 6.0x100 Lutonix DCB was prepped and advanced across the Superficial Femoral, Left , then inflated to 7 GRANT for 1:30 seconds. Inflation number: 2 The 6.0x100 Lutonix DCB was reinflated across the Superficial Femoral, Left, to 7 GRANT for 1:30 seconds. Inflation number: 3 The 6.0x100 Lutonix DCB was reinflated across the Superficial Femoral, Left, to 7 GRANT for 1:07 seconds. Inflation number: 4 The 6.0x100 Lutonix DCB was reinflated across the Superficial Femoral, Left, to 7 GRANT for 1:03 seconds. Balloon out over wire. Inflation number : 1 A AB ARMADA 35 OTW [id number] was prepped and advanced across the External Iliac, Left , then inflated to 4 GRANT for 1:01 seconds. Balloon out over wire. Results checked. Seeker inserted OTW. Wire removed. 300cm Runthrough inserted. Seeker catheter out OTW. Inflation Number : 1 A 5.0x80 Supera Stent -Lot Number# _[id number]_ EXP: 11/07/2024 was prepped and advanced across the Distal Superficial Femoral, Left. The stent was deployed. Stent balloon out over wire. Results checked. Wire out. Glidewire inserted. ACT drawn. Results 256 seconds. Therapeutic limits - pre-heparin administration 90-150 seconds and monitoring heparin during a vascular procedure >250 seconds. The long sheath was exchanged for a short 6 Fr sheath. A Suture was successful obtaining hemostatsis at the Right Femoral artery insertion site. Sheath(s) sutured into position with 2-0 silk and sterile 4x4's and Op-site applied over the site. No oozing or signs and symptoms of hematoma noted. Arterial sheath flushed and connected to tranducer and pressure bag with heparinized saline. PERRLA. Strong, equal hand motorcycle maker bilaterally. No VTE prophylaxis required. Medication's Wasted: Lidocaine 1% = 10 mL. Total IV fluids: 150 mL. Complications: None. Estimated blood loss: 5mL-10mL. Responsiveness - Normal response to verbal stimuli; alert and oriented, PERRLA. Airway - Unaffected, no intervention required; spontaneous ventilation. Circulation: W/N/L, pulses unchanged. Nausea/Vomiting: No. Procedure completed. Patient transferred by bed to ICU. Vital chart was stopped. Procedure Medications Start: 9:41 AM Stop: 9:41 AM Medication: Versed Amount: 1 mg Route: I.V. Start: 9:41 AM Stop: 9:41 AM Medication: Fentanyl Amount: 50 mcg Route: I.V. Start: 9:55 AM Stop: 9:55 AM Medication: Heparin Amount: 5000 units Route: I.V. Start: 9:58 AM Stop: 9:58 AM Medication: Versed Amount: 1 mg Route: I.V. Start: 10:04 AM Stop: 10:04 AM Medication: Heparin Amount: 2000 units Route: I.V. Start: 10:52 AM Stop: 10:52 AM Medication: Heparin Amount: 1000 units Route: I.V. Start: 10:57 AM Stop: 10:57 AM Medication: Fentanyl Amount: 50 mcg Route: I.V. Start: 11:01 AM Stop: 11:01 AM Medication: Plavix Amount: 600 mg Route: P.O. I, the attending physician, have reviewed and verified all procedure medications. Yes, all medications given per verbal order History/Risk Factors Hypertension: Yes Dyslipidemia: No Peripheral Arterial Disease (PAD): Yes Obesity: No Renal Disease: No Tobacco Use: Current/Recent(w/in 1 year) Prior Interventions PCI: No CABG: No Valve Surgery: No Report Signatures Finalized by Kyle Contreras MD on 07/02/2024 09:09 PM
--- NOTE | 2024-06-29 09:35 | P.HP_ITS ---
Same Day Surgery H&P Indication for Procedure/HPI DATE OF PROCEDURE: June 29, 2024 CHIEF COMPLAINT/INDICATIONFOR SURGICAL PROCEDURE: Severe lifestyle limiting claudication of left lower extremity PREOP DIAGNOSIS: Severe lifestyle limiting claudication of left lower extremity PLANNED PROCEDURE: Operation Date: 06/29/24 08:30 Proposed Procedures p Peripheral Diagnostic - Periph Angio Bilat(Bilateral) - Kyle Contreras M.D Peripheral intervention 69-year-old man with past medical history of artery disease who is having severe lifestyle limiting claudication of left lower extremity. Prior NATALYA was 0.6. Had a CTA that is showing severe stenosis of external iliac artery and total occlusion of SFA. Plan for peripheral angiogram with possible intervention of left lower extremity. Risks (including bleeding, renal dysfunction, stroke, amputation) and benefits of procedure been discussed. He understands the risks a nd benefits and wants to proceed. Medications/Allergies* Home Medications Medication Instructions Recorded Confirmed Type hydrocodone 10 mg-acetaminophen 1 tab PO Q8H PRN Pain 03/21/24 06/29/24 History 325 mg tablet Allergies/Adverse Reactions Allergy/AdvReac Type Severity Reaction Status Date / Time No Known Allergies Allergy Verified 06/15/24 15:52 Current Medications: Generic Name Dose Route Start Last Admin Trade Name Freq PRN Reason Stop Dose Admin Sodium Chloride 1,000 mls @ 50 mls/hr 06/29/24 07:30 06/29/24 07:37 Sodium Chloride 0.9% IV 06/30/24 03:29 Not Given .Q20H ONE Pertinent History/Comorbid Conditions* Medical History (Updated 06/27/24 @ 07:38 by JUDITH Hart) Mild aortic stenosis Enrolled in chronic care management Fatigue Heart murmur Chronic instability of ankle Chronic ankle pain Prostate cancer screening Smoker unmotivated to quit Vitamin D deficiency Essential hypertension Toenail deformity Diabetic foot Encounter for long-term opiate analgesic use Opioid contract exists Long-term use of high-risk medication Chronic low back pain Surgical History (Updated 04/30/22 @ 12:00 by Sindhu Khan MD) S/P knee replacement LEFT KNEE REPLACEMENT 2019 Hx of toe surgery PIN PLACEMENT IN LEFT GREAT TOE Family History (Updated 11/27/19 @ 12:08 by Ivanna Hernandez RN) Congestive heart failure (CHF) Cancer Social History Smoking and tobacco/nicotine status: current every day tobacco/nicotine user cigarettes Packs smoked per day: 2 Alcohol intake: current Alcohol intake frequency: holidays/special occasions only Alcohol type: beer Substance/Drug Use: never Pertinent Exam Findings alert, oriented x 3, clear to auscultation bilaterally and regular rate & rhythm Difficult to palpate pulses on left lower extremity Conscious Sedation Assessment PATIENT ASSESSED PRIOR TO SEDATION, WITH NO CHANGE NOTED: Yes AIRWAY EVAL/ANESTHESIA PLAN: normal airway, ASA III, Local Anesthesia, Risks, benefits & alternatives of sedation and/or procedure discussed and Patient agrees to continue as planned Recommendations Surgery/Procedure today (Peripheral angiogram with possible intervention of left lower extremity)) Coding Level of Care Code Acute Code for [facility] Fwraymundo
--- NOTE | 2024-06-29 11:20 | PC.NURSE ---
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 Sheath noted in right groin. No hematoma, bleeding noted. LEft dorsal and tibial pulses palpable faintly. RIght tibial pulse palpable faintly. Pt denies pain at this time.
[2024-06-29 13:49] LABS: Partial Thromboplastin Time 85.7 SECONDS (23.9-36.7)
[2024-06-29] MEDS: gabapentin 400 mg Capsule PO ×2 (16:08→21:14)
[2024-06-29] MEDS: atorvastatin 40 mg Tablet 20 MG PO (16:08)
--- NOTE | 2024-06-29 17:15 | PC.NURSE ---
PTT 29.9 Right groin sheath pulled. Pressure held until hemostasis obtained. Gauze and transparent dressing applied. No hematoma noted. Pt toelrated well. Dr Contreras came in and spoke with pt.
[2024-06-29] MEDS: cilostazol 100 mg Tablet 50 MG PO (18:18)
[2024-06-29] MEDS: sodium chloride 0.9% 1,000 ML 100 ML IV (21:15)
[2024-06-30] VITALS (86 sets, daily range): BP systolic 98–166; BP diastolic 49–107; PULSE 54–87; RESP 12–25; TEMP 36.3–36.5; O2SAT 83–100
[2024-06-30 03:51] LABS: Glucose Point of Care 154 mg/dL (70-110)
[2024-06-30 03:56] LABS: Basophils % 0.4 %; Eosinophils # 0.1 10^3/uL (0.0-0.8); Eosinophils % 1.5 %; Hematocrit 47.2 % (37-53); Lymphocytes # 1.1 10^3/uL (0.8-4.8); Lymphocytes % 16.3 %; Mean Corpuscular HGB Conc 33.3 g/dL (30-55); Mean Corpuscular Hemoglobin 32.1 pg (27-33); Mean Corpuscular Volume 96.5 fl (82-101); Mean Platelet Volume 10.9 fL (7.4-10.4); Monocytes # 0.6 10^3/uL (0.2-0.9); Monocytes % 8.4 %; Neutrophils % 73.1 %; Nucleated Red Blood Cells % 0 %; Platelet Count 114 10^3/cmm (157-399); Red Blood Count 4.89 10^6/uL (3.85-5.65); Red Cell Distribution Width 12.7 % (12.1-15.1)
[2024-06-30 04:14] LABS: Anion Gap 13.5 (5-19); Blood Urea Nitrogen 18 mg/dL (8-23); Calcium 8.3 mg/dL (8.5-10.5); Carbon Dioxide 25 mmol/L (22-29); Chloride 106 mmol/L (98-107); Creatinine Clr Calc Pharmacy 95.8333; Glucose 171 mg/dL (65-115); Osmolality Calculated 296 mOsm/kg (285-295); Potassium 4.5 mmol/L (3.5-5.1); Sodium 140 mmol/L (136-145)
[2024-06-30] MEDS: gabapentin 400 mg Capsule PO (08:27)
[2024-06-30] MEDS: tamsulosin 0.4 mg Capsule PO (08:28)
[2024-06-30] MEDS: clopidogrel 75 mg Tablet PO (08:28)
[2024-06-30] MEDS: cilostazol 100 mg Tablet 50 MG PO (08:28)
[2024-06-30] MEDS: aspirin 81 mg EC Tablet PO (08:28)
[2024-06-30] MEDS: atorvastatin 40 mg Tablet 20 MG PO (08:28)
--- NOTE | 2024-06-30 09:04 | PM.DCS ---
Discharge Providers Date of Admission: June 29, 2024 Date of Discharge: June 30, 2024 Attending Provider at Discharge: Kyle Contreras M.D Primary Care Provider: JUDITH Kamara Reason for Visit Reason for Visit: I73.9 Brief History: 69-year-old man with past medical history of artery disease who is having severe lifestyle limiting claudication of left lower extremity. Prior NATALYA was 0.6. Had a CTA that is showing severe stenosis of external iliac artery and total occlusion of SFA. Plan for peripheral angiogram with possible intervention of left lower extremity. Risks (including bleeding, renal dysfunction, stroke, amputation) and benefits of procedure been discussed. He understands the risks and benefits and wants to proceed. Hospital Course Hospital Course Patient had successful revascularization of left lower extremity with balloon angioplasty of extremity iliac artery and orbital arthrectomy, balloon angioplasty with DCB and Supera stent placement in SFA. Overnight he was observed and stayed stable. He was discharged home in a stable condition on dual antiplatelet therapy. Smoking cessation recommended strongly. Physical Exam Narrative: GENERAL: Patient is alert, awake and oriented x3. [] NECK: No jugular vein distension. [] HEENT: No cyanosis. No icterus. No pallor. [] HEART: Regular S1 and S2. No murmur, rub or gallop. [] LUNGS: Clear to auscultate bilaterally. [] CENTRAL NERVOUS SYSTEM: Grossly nonfocal. [] EXTREMITIES: Lower extremities with 1+ edema bilaterally. 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 Routine Exams 06/29/24 08:30 Taken Laboratory Results WBC 6.70 10^3/uL (3.29-11.43) 06/30/24 03:36 RBC 4.89 10^6/uL (3.85-5.65) 06/30/24 03:36 Hgb 15.70 g/dL (11.27-16.99) 06/30/24 03:36 Hct 47.2 % (37-53) 06/30/24 03:36 MCV 96.5 fl (82-101) 06/30/24 03:36 MCH 32.1 pg (27-33) 06/30/24 03:36 MCHC 33.3 g/dL (30-55) 06/30/24 03:36 RDW 12.7 % (12.1-15.1) 06/30/24 03:36 Plt Count 114 10^3/cmm (157-399) L 06/30/24 03:36 MPV 10.9 fL (7.4-10.4) H 06/30/24 03:36 Neut % (Auto) 73.1 % 06/30/24 03:36 Lymph % (Auto) 16.3 % 06/30/24 03:36 [place] % (Auto) 8.4 % 06/30/24 03:36 Eos % (Auto) 1.5 % 06/30/24 03:36 Baso % (Auto) 0.4 % 06/30/24 03:36 Neut # (Auto) 4.90 10^3/uL (1.8-7.7) 06/30/24 03:36 Lymph # (Auto) 1.1 10^3/uL (0.8-4.8) 06/30/24 03:36 [place] # (Auto) 0.6 10^3/uL (0.2-0.9) 06/30/24 03:36 Eos # (Auto) 0.1 10^3/uL (0.0-0.8) 06/30/24 03:36 Baso # (Auto) 0.0 10^3/uL (0.0-0.1) 06/30/24 03:36 Nucleated RBC % (auto) 0 % 06/30/24 03:36 Nucleated RBCs # 0.0 /100WBC 06/30/24 03:36 APTT 29.0 SECONDS (23.9-36.7) D 06/29/24 16:06 Sodium 140 mmol/L (136-145) 06/30/24 03:36 Potassium 4.5 mmol/L (3.5-5.1) 06/30/24 03:36 Chloride 106 mmol/L (98-107) 06/30/24 03:36 Carbon Dioxide 25 mmol/L (22-29) 06/30/24 03:36 Anion Gap 13.5 (5-19) 06/30/24 03:36 BUN 18 mg/dL (8-23) 06/30/24 03:36 Creatinine 0.8 mg/dL (0.7-1.2) 06/30/24 03:36 GFR Calculation Not Reportable 06/30/24 03:36 Glucose 171 mg/dL (65-115) H 06/30/24 03:36 POC Glucose 154 mg/dL (70-110) H 06/30/24 03:38 Calculated Osmolality 296 mOsm/kg (285-295) H 06/30/24 03:36 Calcium 8.3 mg/dL (8.5-10.5) L 06/30/24 03:36 Vitals Last Vital Signs Temp 97.7 F 06/30/24 03:48 Pulse 81 06/30/24 06:15 Resp 22 H 06/30/24 06:15 BP 156/70 06/30/24 06:15 Pulse Ox 100 06/30/24 06:15 O2 Del Method Room Air 06/29/24 17:30 Discharge Plan Discharge Patient Disposition: Home Prescriptions: New clopidogrel 75 mg tablet 75 mg PO DAILY Qty: 90 2RF Continued (DME) Diabetic shoes with 3 sets of insoles See Rx Instructions .Route .MEDSUPPLY Qty: 1 0RF Rx Instructions: As directed (DME) custom molded accommodative orthotics See Rx Instructions .Route .MEDSUPPLY Qty: 1 0RF Rx Instructions: As directed by alpha and omega gabapentin 400 mg capsule 400 mg PO TID 30 Days Qty: 90 1RF (DME) blood-glucose meter Kit See Rx Instructions .Route Qty: 100 2RF Rx Instructions: Daily fasting glucose Glucometer - 1 Strips - 100 Lancets 100 hydrocodone-acetaminophen 10-325 mg tablet 1 tab PO Q8H PRN (Reason: Pain) Trulicity 0.75 mg/0.5 mL pen injector 0.75 mg SUBCUT .weekly 28 Days Qty: 2 1RF cholecalciferol (vitamin D3) 1,250 mcg (50,000 unit) capsule 50,000 unit PO .weekly 90 Days Qty: 14 0RF aspirin 81 mg tablet,delayed release (DR/EC) 81 mg PO DAILY Qty: 90 3RF cilostazol 50 mg tablet 50 mg PO BID Qty: 180 3RF atorvastatin 20 mg tablet See Rx Instructions .ROUTE .COMPLEX Qty: 30 2RF Dose Instruction: TAKE 1 TABLET BY MOUTH DAILY Rx Instructions: TAKE 1 TABLET BY MOUTH DAILY tamsulosin 0.4 mg capsule See Rx Instructions .ROUTE .COMPLEX Qty: 30 2RF Dose Instruction: TAKE ONE CAPSULE BY MOUTH EVERY DAY; (PT MUST MAKE APPT BEFORE ADDITIONAL REFILLS) Rx Instructions: TAKE ONE CAPSULE BY MOUTH EVERY DAY; (PT MUST MAKE APPT BEFORE ADDITIONAL REFILLS) Held metformin 1,000 mg tablet See Rx Instructions .ROUTE .COMPLEX Qty: 180 2RF Hold Instructions: Resume on 07/02/24. Dose Instruction: TAKE 1 TABLET BY MOUTH TWICE DAILY FOR 90 DAYS Rx Instructions: TAKE 1 TABLET BY MOUTH TWICE DAILY FOR 90 DAYS Discharge Orders: Discharge Order (Routine); Ordered 06/30/24 Ordered By: Kyle Contreras Referrals: Keely Bernal FNP [Nurse Practitioner] - 07/07/24 9:45 am Diet: Diabetic Activity: Increase activity as tolerated Patient Instructions: Clopidogrel (By mouth) (Plavix), Heart Healthy Diet (DC), Peripheral Vascular Stent Placement (DC), Basic Carbohydrate Counting (DC), Peripheral Vascular Angioplasty (DC), Post Angiogram Home Care Instructions Discharge Date/Time: 06/30/24 09:40 Discharge Attestations Time Spent in Discharge Care*: less than 30 min Quality Metrics Clinical Quality Measures [ No reported AMI, CVA or VTE this stay] Coding Level of Care Code Acute Code for Chg Fwd
--- NOTE | 2024-06-30 10:01 | PC.NURSE ---
Pt was discharged at 0940 and ambulated to personal vehicle. All discharge instructions given and understood including restrictions and site care. Site was clean and dry at time of discharge
== END 2024-06-30 09:40 | disposition home or self-care (01) ==
LOC: CCL 07:28 → ICU 11:27
PROVIDERS: PCP Nurse Practitioner Family; Visit Provider Internal Medicine
DX: I70.212 Atherosclerosis of native arteries of extremities with intermittent claudication, left leg (principal); I70.92 Chronic total occlusion of artery of the extremities; Z79.01 Long term (current) use of anticoagulants; I10 Essential (primary) hypertension; F17.210 Nicotine dependence, cigarettes, uncomplicated
CPT/HCPCS: 36415; 36416; 37220; 37227; 75625; 75710; 80048; 82962; 85025; 85347; 85730; 96374; 96375; 99152; 99153; C1724; C1725; C1769; C1876; C1887; C1894; C2623; J1644; J2250; J3010; J3490; J7030; Q0163; Q9967

== ENCOUNTER 2024-07-07 06:00 | Outpatient (CLI) | payer MEDICARE, MEDICAID, SELFPAY | END 2024-07-07 06:01 | disposition home or self-care (01) | LOC: RAD 07-12 14:27 | PROVIDERS: PCP Nurse Practitioner Family; Visit Provider Nurse Practitioner Family | DX: I73.9 Peripheral vascular disease, unspecified (principal); I10 Essential (primary) hypertension; F17.210 Nicotine dependence, cigarettes, uncomplicated | CPT/HCPCS: 99214 ==

== ENCOUNTER 2024-08-11 12:50 | Outpatient (CLI) | payer MEDICARE, MEDICAID, SELFPAY ==
--- NOTE | 2024-08-11 13:30 | USCV_ITS ---
HudsonMariaelena Age: 69 Gender: M : 1955 Exam Date: 08/11/2024 13:16 Ordering Phys: Keely Bernal Technologist: KATIA Exam Location: [facility] – [place] Indication: Risk Factors: Previous Vascular Surgery: Right Brachial BP: / Left Brachial BP: / Right Left Velocity (cm/s) Spectral Plaque Velocity (cm/s) Spectral Plaque Syst/Diast Broadening Syst/Diast Broadening 68.50/ 14.10 Prox CCA 107.30/ 14.50 68.50/ 20.60 Mid CCA 97.10 / 20.90 61.90/ 15.40 Distal CCA 101.90/ 17.20 19.50/ 7.90 Prox ICA 112.10/ 15.30 / Mid ICA 50.00 / 15.20 / Distal ICA 78.90 / 17.20 76.20 ECA 100.80 0.30 ICA/CCA 1.10 Bi- Vertebral Antegrade directiona l 50.20/ 12.70 cm/s 78.70/ 18.70 cm/s Tri Subclavian Tri 46.00 101.2 0 FINDINGS Comparison:. 07/03/19. Chronic occlusion right ICA. Bildirectional flow right vertebral artery. Mild diffuse intimal thickening and scattered plaque left carotid artery. Anegrade left vertebral artery. CONCLUSIONS Left ICA stenosis < 50%. Left intimal thickening and mild plaque, mild progression since the prior exam Chronic know right ICA occlusion. Dr. Joie Rolon DO (Electronically Signed) Final Date: 11 August 2024 14:28 S
== END 2024-08-11 12:51 | disposition home or self-care (01) ==
LOC: RAD 12:52
PROVIDERS: PCP Nurse Practitioner Family; Visit Provider Nurse Practitioner Family
DX: I65.21 Occlusion and stenosis of right carotid artery (principal); I65.09 Occlusion and stenosis of unspecified vertebral artery; R09.89 Other specified symptoms and signs involving the circulatory and respiratory systems
CPT/HCPCS: 93880

== ENCOUNTER → 2024-12-08 10:15 | Outpatient (BNVA) | payer MEDICARE, MEDICAID, SELFPAY | PROVIDERS: PCP Nurse Practitioner Family; Visit Provider Internal Medicine | DX: I70.212 Atherosclerosis of native arteries of extremities with intermittent claudication, left leg (principal); I73.9 Peripheral vascular disease, unspecified; M79.604 Pain in right leg; M79.605 Pain in left leg; E11.40 Type 2 diabetes mellitus with diabetic neuropathy, unspecified; I10 Essential (primary) hypertension | CPT/HCPCS: 99214 ==

== ENCOUNTER → 2024-12-26 07:03 | Outpatient (BNVA) | payer MEDICARE, MEDICAID, SELFPAY | PROVIDERS: PCP Nurse Practitioner Family; Visit Provider Podiatrist Foot & Ankle Surgery | DX: E11.42 Type 2 diabetes mellitus with diabetic polyneuropathy (principal); B35.1 Tinea unguium; L84 Corns and callosities; E11.8 Type 2 diabetes mellitus with unspecified complications; I73.9 Peripheral vascular disease, unspecified; F17.200 Nicotine dependence, unspecified, uncomplicated; Z79.84 Long term (current) use of oral hypoglycemic drugs | CPT/HCPCS: 11056; 11721; 99213 ==

== ENCOUNTER → 2025-01-04 08:23 | Outpatient (BNVA) | payer MEDICARE, MEDICAID, SELFPAY | PROVIDERS: PCP Nurse Practitioner Family; Visit Provider Nurse Practitioner Family | DX: I10 Essential (primary) hypertension (principal); E11.621 Type 2 diabetes mellitus with foot ulcer; L97.509 Non-pressure chronic ulcer of other part of unspecified foot with unspecified severity; R53.82 Chronic fatigue, unspecified; I73.9 Peripheral vascular disease, unspecified; E55.9 Vitamin D deficiency, unspecified | CPT/HCPCS: 80053; 80061; 81003; 82306; 83036; 84443; 85025 ==

== ENCOUNTER 2025-01-08 07:04 | Outpatient (CLI) | payer MEDICARE, MEDICAID, SELFPAY ==
--- NOTE | 2025-01-08 07:00 | USR_ITS ---
PROCEDURE INFORMATION: Exam: US Duplex Bilateral Lower Extremity Arteries Exam date and time: 01/08/2025 7:12 AM Age: 70 years old Clinical indication: Pain; Leg, lower; Bilateral; Additional info: Leg pain TECHNIQUE: Imaging protocol: Real-time ultrasound scan of the arteries of the bilateral lower extremities with 2-D batres scale, color Doppler flow and spectral waveform analysis. Images documented and saved. COMPARISON: CT angio abd aorta runof [id number] 06/01/2024 8:10 AM FINDINGS: Right common femoral artery: No occlusion or significant stenosis. Normal waveform. Right superficial femoral artery: No occlusion or significant stenosis. Normal waveform. Right popliteal artery: No occlusion or significant stenosis. Normal waveform. Right calf/foot arteries: No occlusion or significant stenosis in the visualized arteries. Normal waveforms. Dorsalis pedis artery is patent. Left common femoral artery: Left common femoral artery. No occlusion but with monophasic waveform. Left superficial femoral artery: SFA appears to be occluded then with popliteal reconstitution. Dorsalis pedis artery appears monophasic. Left popliteal artery: No occlusion or significant stenosis. Normal waveform. Left calf/foot arteries: The left posterior tibial artery shows no flow. Monophasic DPA. Lymph nodes: Visible lymph nodes in the left inguinal region are morphologically normal. Other findings: US/CV arterial duplex [facility] [id number] IMPRESSION: Occlusion of the left SFA with popliteal reconstitution. Absent flow posterior tibial as well.
== END 2025-01-08 07:05 | disposition home or self-care (01) ==
LOC: RAD 07:05
PROVIDERS: PCP Nurse Practitioner Family; Visit Provider Internal Medicine
DX: I73.9 Peripheral vascular disease, unspecified (principal); M79.604 Pain in right leg; M79.605 Pain in left leg; I70.92 Chronic total occlusion of artery of the extremities; R93.89 Abnormal findings on diagnostic imaging of other specified body structures
CPT/HCPCS: 93925

== ENCOUNTER 2025-01-08 14:34 | Inpatient (IN) | payer MEDICARE, MEDICAID, SELFPAY ==
--- NOTE | 2025-01-08 14:35 | XR_ITS ---
WS: [id number] XR hip LT 2-3V wo/w pel* [id number] REASON FOR EXAM: fall FINDINGS: Moderately displaced intertrochanteric fracture with superior and anterior displacement of the greater trochanter and humeral shaft. Superior and inferior pubic rami in the acetabulum appear intact. XR/XR hip LT 2-3V wo/w pel* [id number] IMPRESSION: Left hip fracture as above.
[2025-01-08 14:37] VITALS: BP 117/74; PULSE 79; RESP 17; TEMP 37.5; O2SAT 95; BMI 23.0
--- NOTE | 2025-01-08 14:38 | ED_ITS ---
HPI - Fall 2 General: Chief Complaint: Extremity Injury, Lower Stated Complaint: fall, L hip pain Time Seen by Provider: 01/08/25 14:34 Source: patient and EMS Mode of arrival: EMS Limitations: no limitations History of Present Illness: 70-year-old male who states he is gettin g out of the house and tripped on the threshold of the house and fell onto his left side. He states he landed on his left hip he has left hip and femur pain. He denies any his head denies any neck pain. 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 He is having pain with movement to left hip at this time. Associated symptoms-after fall: Denies abdominal pain, chest pain, headache(s) or neck pain Related Data Home Medications ?Medication ?Instructions ?Recorded ?Confirmed hydrocodone 10 mg-acetaminophen 1 tab PO Q8H PRN Pain 03/21/24 01/04/25 325 mg tablet Previous Rx's ?Medication ?Instructions ?Recorded gabapentin 400 mg capsule 400 mg PO TID 30 days #90 ca ps 11/20/21 cilostazol 50 mg tablet 50 mg PO BID #180 tabs 05/22 clopidogrel 75 mg tablet 75 mg PO DAILY #90 tabs 06/09 01/29 ketoconazole 2 % shampoo 1 applic topical .twice a we ek 30 09/15/24 days #120 mL mupirocin 2 % topical ointment 1 applic topical TID #1 5 grams 09/15/24 metformin 1,000 mg tablet See Rx Instructions .Route 1 11/18/23 .COMPLEX #180 tabs blood sugar diagnostic #100 ea 10/24/24 lancets #200 ea 10/24/24 atorvastatin 20 mg tablet See Rx Instructions .Route 0 12/18/24 .COMPLEX #30 tabs tamsulosin 0.4 mg capsule See Rx Instructions .Route 0 12/18/24 .COMPLEX #30 caps cephalexin 500 mg capsule 500 mg PO BID 10 days #20 ca ps 12/21/24 dulaglutide 1.5 mg/0.5 mL 1.5 mg (0.5 mL) SUBCUT .week ly 1 12/21/24 subcutaneous pen injector month #2 mL (Trulicity) nicotine 14 mg/24 hr daily 1 patch transdermal DAILY # 28 ea 12/21/24 transdermal patch Allergies Allergy/AdvReac Type Severity Reaction Status Date / Time No Known Allergies Allergy Verified 01/04/25 07:59 Review of Systems 2 Const: Denies: fever(s), chills, body aches or change in appetite ENMT: Denies: throat pain or dental pain Card: Denies: chest pain Resp: Denies: dyspnea GI: Denies: abdominal pain, nausea, vomiting or diarrhea : Denies: dysuria Musc: Reports: extremity pain; Denies: neck pain or back pain Skin/Breast: Denies: rash Neuro: Denies: headache(s) PFSH ED 2 PFSH: Medical History Tobacco dependence Nail deformity 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 Onychomycosis Dandruff Cellulitis of left foot Mild aortic stenosis Enrolled in chronic care management Fatigue Heart murmur Chronic instability of ankle Chronic ankle pain Prostate cancer screening Smoker unmotivated to quit Vitamin D deficiency Essential hypertension Toenail deformity Diabetic foot Encounter for long-term opiate analgesic use Opioid contract exists Long-term use of high-risk medication Chronic low back pain Surgical History S/P knee replacement LEFT KNEE REPLACEMENT 2019 Hx of toe surgery PIN PLACEMENT IN LEFT GREAT TOE Family History Other Cancer Congestive heart failure (CHF) Social History Smoking and tobacco/nicotine status: current every day tobacco/nicotine user cigarettes Packs smoked per day: 2 Alcohol intake: current Alcohol intake frequency: holidays/special occasions only Alcohol type: beer Substance/Drug Use: never Physical Exam 2 Const: COMMON NORMALS: no acute distress, patient oriented x3 and healthy appearing HENMT: COMMON NORMALS: normocephalic and atraumatic HEAD & SCALP: n ormocephalic and atraumatic Eye: COMMON NORMALS: conjunctivae normal CONJUNCTIVA: Yes conjunctivae normal Neck/C-Spine: COMMON NORMALS: full ROM and supple Chest: COMMONS NORMALS: normal inspection of the chest Resp: COMMON NORMALS: normal respiratory effort, No retractions, No use of accessory muscles and clear to auscultation bilaterally AUSCULTATION: clear to auscultation bilaterally Cardio: COMMON NORMALS: regular rate, regular rhythm and No murmurs present (Cardio) RATE: regular rate RHYTHM: regular rhythm Extremity: NARRATIVE EXTREMITY EXAM: Tenderness noted to left hip have some pain with range of motion distal pulses intact Neuro: COMMON NORMALS: patient oriented x3, moves all extremities and no focal motor deficits Psych: COMMON NORMALS: mental status grossly normal, Normal thought process present and cooperative THOUGHT PROCESS: Normal thought process present Skin: COMMON NORMALS: no rashes or lesions noted and no wounds GENERAL SKIN EXAM: no rashes or lesions noted Course 2 Vital Signs: Vital signs: Vital Signs Temperature 99.5 F 01/08/25 14:37 Pulse Rate 79 01/08/25 14:37 Respiratory Rate 17 01/08/25 14:37 Blood Pressure 107/65 01/08/25 15:43 Pulse Oximetry 96 01/08/25 15:43 Oxygen Delivery Me thod Room Air 01/08/25 14:37 MDM - Fall Medical Decision Making Patient presents here with left hip fracture from a fall. I did spoke to hospitalist and orthopedist and will admit. Medical Records I reviewed the patient's medical records. Lab Data I reviewed the patient's lab results. 01/08/25 13:30 01/08/25 13:30 Radiology Impressions Hip/Pelvis X-Ray 01/08/25 14:35 IMPRESSION: Left hip fracture as above. Femur X-Ray 01/08/25 14:38 IMPRESSION: Intertrochanteric fracture with the remainder of the femur intact. Laboratory Results WBC 5.04 10^3/uL (3.29-11.43) 01/08/25 13:30 RBC 5.21 10^6/uL (3.85-5.65) 01/08/25 13:30 Hgb 16.40 g/dL (11.27-16.99) 01/08/25 13:30 Hct 50.1 % (37-53) 01/08/25 13:30 MCV 96.2 fl (82-101) 01/08/25 13:30 MCH 31.5 pg (27-33) 01/08/25 13:30 MCHC 32.7 g/dL (30-55) 01/08/25 13:30 RDW 12.3 % (12.1-15.1) 01/08/25 13:30 Plt Count 113 10^3/cmm (157-399) L 01/08/25 13:30 MPV 12.2 fL (7.4-10.4) H 01/08/25 13:30 Neut % (Auto) 59.5 % 01/08/25 13:30 Lymph % (Auto) 28.4 % 01/08/25 13:30 [place] % (Auto) 8.3 % 01/08/25 13:30 Eos % (Auto) 2.4 % 01/08/25 13:30 Baso % (Auto) 0.8 % 01/08/25 13:30 Neut # (Auto) 3.00 10^3/uL (1.8-7.7) 01/08/25 13:30 Lymph # (Auto) 1.4 10^3/uL (0.8-4.8) 01/08/25 13:30 [place] # (Auto) 0.4 10^3/uL (0.2-0.9) 01/08/25 13:30 Eos # (Auto) 0.1 10^3/uL (0.0-0.8) 01/08/25 13:30 Baso # (Auto) 0.0 10^3/uL (0.0-0.1) 01/08/25 13:30 Nucleated RBC % (auto) 0 % 01/08/25 13:30 Nucleated RBCs # 0.0 /100WBC 01/08/25 13:30 Sodium 136 mmol/L (136-145) 01/08/25 13:30 Chloride 99 mmol/L (98-107) 01/08/25 13:30 Carbon Dioxide 28 mmol/L (22-29) 01/08/25 13:30 BUN 19 mg/dL (8-23) 01/08/25 13:30 GFR Calculation Not Reportable 01/08/25 13:30 Calculated Osmolality 287 mOsm/kg (285-295) 01/08/25 13:30 Calcium 9.2 mg/dL (8.5-10.5) 01/08/25 13:30 Total Bilirubin 0.6 mg/dL (0.15-1.2) 01/08/25 13:30 ALT 15 U/L (0-41) 01/08/25 13:30 Alkaline Phosphatase 104 U/L (40-130) 01/08/25 13:30 Total Protein 7.2 g/dL (6.6-8.7) 01/08/25 13:30 Albumin 4.1 g/dL (3.5-5.2) 01/08/25 13:30 Globulin 3.1 g/dL (1.3-4.6) 01/08/25 13:30 All radiology interpretation(s) finalized by discharge Discharge Plan Discharge Patient Disposition: Admitted As Inpatient Clinical Impression: Closed fracture of left hip Condition: Stable Prescriptions: No Action gabapentin 400 mg capsule 400 mg PO TID 30 Days Qty: 90 1RF hydrocodone-acetaminophen 10-325 mg tablet 1 tab PO Q8H PRN (Reason: Pain) ketoconazole 2 % shampoo 1 applic topical .twice a week 30 Days Qty: 120 0RF mupirocin 2 % ointment 1 applic topical TID Qty: 15 0RF Trulicity 1.5 mg/0.5 mL pen injector 1.5 mg SUBCUT .weekly 30 Days Qty: 2 1RF nicotine 14 mg/24 hr patch 24 hour 1 patch transdermal DAILY Qty: 28 1RF cephalexin 500 mg capsule 500 mg PO BID 10 Days Qty: 20 0RF cilostazol 50 mg tablet 50 mg PO BID Qty: 180 3RF metformin 1,000 mg tablet See Rx Instructions .ROUTE .COMPLEX Qty: 180 2RF Dose Instruction: TAKE 1 TABLET BY MOUTH TWICE DAILY Rx Instructions: TAKE 1 TABLET BY MOUTH TWICE DAILY (DME) lancets Misc See Rx Instructions .Route Qty: 200 2RF Rx Instructions: USE TO CHECK BLOOD SUGAR DAILY. (DME) blood sugar diagnostic Strip See Rx Instructions .Route Qty: 100 2RF Rx Instructions: USE TO CHECK BLOOD SUGAR DAILY. atorvastatin 20 mg tablet See Rx Instructions .ROUTE .COMPLEX Qty: 30 2RF Dose Instruction: TAKE 1 TABLET BY MOUTH DAILY Rx Instructions: TAKE 1 TABLET BY MOUTH DAILY tamsulosin 0.4 mg capsule See Rx Instructions .ROUTE .COMPLEX Qty: 30 2RF Dose Instruction: TAKE ONE CAPSULE BY MOUTH EVERY DAY; (PT MUST MAKE APPT BEFORE ADDITIONAL REFILLS) Rx Instructions: TAKE ONE CAPSULE BY MOUTH EVERY DAY; (PT MUST MAKE APPT BEFORE ADDITIONAL REFILLS) clopidogrel 75 mg tablet 75 mg PO DAILY Qty: 90 2RF Referrals: ABNER Carson, CHILD NURSE [Primary Care Provider] - Print Language: Ethiopian Coding Level of Care Code ED Gun Number for Sanjay Shafer
--- NOTE | 2025-01-08 14:38 | XR_ITS ---
WS: [id number] XR femur LT min 2V* [id number] REASON FOR EXAM: injury FINDINGS: Intertrochanteric fracture of the proximal left femur. The remainder of the femur to the knee is intact without fracture. XR/XR femur LT min 2V* [id number] IMPRESSION: Intertrochanteric fracture with the remainder of the femur intact.
[2025-01-08 14:45] VITALS: BP 117/74; O2SAT 95
[2025-01-08 15:21] VITALS: BP 103/75; O2SAT 96
[2025-01-08 15:43] VITALS: BP 107/65; O2SAT 96
--- NOTE | 2025-01-08 15:45 | XR_ITS ---
WS: [id number] XR chest 1V portable [id number] REASON FOR EXAM: fall FINDINGS: The chest is unchanged compared to 12/28/2022. Moderate tortuosity and ectasia of the thoracic aorta with calcification of the aortic arch. Calcified granulomatous disease bilaterally. No acute pulmonary parenchymal or pleural abnormality. The bony thorax appears intact with moderate degenerative spondylosis in the mid and lower thoracic spine. XR/XR chest 1V portable [id number] IMPRESSION: Stable chest without acute abnormality.
[2025-01-08 15:53] LABS: Basophils % 0.8 %; Eosinophils # 0.1 10^3/uL (0.0-0.8); Eosinophils % 2.4 %; Hematocrit 50.1 % (37-53); Lymphocytes # 1.4 10^3/uL (0.8-4.8); Lymphocytes % 28.4 %; Mean Corpuscular HGB Conc 32.7 g/dL (30-55); Mean Corpuscular Hemoglobin 31.5 pg (27-33); Mean Corpuscular Volume 96.2 fl (82-101); Mean Platelet Volume 12.2 fL (7.4-10.4); Monocytes # 0.4 10^3/uL (0.2-0.9); Monocytes % 8.3 %; Neutrophils % 59.5 %; Nucleated Red Blood Cells % 0 %; Platelet Count 113 10^3/cmm (157-399); Red Blood Count 5.21 10^6/uL (3.85-5.65); Red Cell Distribution Width 12.3 % (12.1-15.1); White Blood Count 5.04 10^3/uL (3.29-11.43)
[2025-01-08 16:04] LABS: Alanine Aminotransferase 15 U/L (0-41); Albumin Level 4.1 g/dL (3.5-5.2); Alkaline Phosphatase 104 U/L (40-130); Blood Urea Nitrogen 19 mg/dL (8-23); Calcium 9.2 mg/dL (8.5-10.5); Carbon Dioxide 28 mmol/L (22-29); Chloride 99 mmol/L (98-107); Globulin 3.1 g/dL (1.3-4.6); Glucose 147 mg/dL (65-115); Osmolality Calculated 287 mOsm/kg (285-295); Sodium 136 mmol/L (136-145); Total Bilirubin 0.6 mg/dL (0.15-1.2); Total Protein 7.2 g/dL (6.6-8.7)
[2025-01-08 16:14] LABS: Anion Gap 13.9 (5-19); Aspartate Amino Transferase 21 U/L (0-40); Potassium 4.9 mmol/L (3.5-5.1)
--- NOTE | 2025-01-08 16:28 | ECG_ITS ---
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 Measurements Intervals Bryant Rate: 89 P: -14 MT: 184 QRS: -1 QRSD: 82 T: -7 QT: 343 QTc: 418 Interpretive Statements SINUS RHYTHM MODERATE VOLTAGE CRITERIA FOR LVH, CONSIDER NORMAL VARIANT [MEETS CRITERIA IN ONE OF: R(aVL), S(V1), R(V5), R(V5/V6)+S(V1)] POSSIBLE SEPTAL MYOCARDIAL INFARCTION , OF INDETERMINATE AGE [30 ms Q WAVE IN V1/V2] PROBABLE INFERIOR MYOCARDIAL INFARCTION , OF INDETERMINATE AGE [35 ms Q WAVE IN II/aVF] Compared to ECG 12/28/2022 14:45:07 Myocardial infarct finding now present Poor R-wave progression no longer present Electronically Signed On 01-13-2025 18:16:07 APPEALS WRITER by Kyle Contreras M.D. [email or web address]
[2025-01-08] MEDS: HYDROMORPHONE HCL 0.5 MG/0.5 ML INJ 1 MG IVP (16:29)
[2025-01-08 16:54] LABS: INR 0.91 (0.8-1.2)
--- NOTE | 2025-01-08 17:53 | P.HP_ITS ---
Providers/Chief Complaint 2 Admitting Physician: Corrina Espinosa MD Primary Care Provider: JUDITH Kamara Chief Complaint: fall, L hip pain History of Present Illness Mariaelena Treviño is a 70 year old male with PMH DM, peripheral neuropathy, PAD chronically on eliquis and plavix s/p angiogram and stenting to LLE few months ago. Presented with mechanical fall at home today resulting in Moderately displaced intertrochanteric fracture with superior and anterior displacement of the greater trochanter and humeral shaft. Complains of pain at fracture site currently. No complaints of chest pain, dyspnea, palpitations, syncope. No open sores or edema over affected extremity. Review of Systems 2 General: Reports: 10 or more systems reviewed and unremarkable except in HPI and below Const: Denies: fever(s), chills or body aches Eyes: Denies: change in vision, blurry vision or photophobia ENMT: Reports: hoarseness; Denies: throat pain, enlarged tonsils, odynophagia or nasal congestion Card: Denies: chest pain, palpitations, irregular heart rhythm, edema, swelling of feet/ankles, lightheadedness, pre-syncope, dyspnea on exertion or orthopnea Resp: Denies: dyspnea, productive cough, non-productive cough, wheezing, stridor, pain on inspiration, change in phlegm color, hemoptysis or chest congestion GI: Denies: abdominal pain, nausea, vomiting, hematemesis, coffee ground emesis, dysphagia, heartburn, diarrhea, constipation, GI cramping, change in stool character, hematochezia or melena : Denies: flank pain, dysuria, urinary frequency, urinary urgency, urinary hesitancy or hematuria Musc: Denies: neck pain, back pain, extremity pain, joint swelling, joint warmth or deformity Neuro: Denies: headache(s), numbness in extremities, weakness in extremities, sensory changes, difficulty walking, frequent falls, dizziness, vertigo, behavioral changes, Slurred speech present or seizure-like activity Psych: Denies: anxiety, depression, suicidal ideation or homicidal ideation Endo: Denies: polyuria, polydipsia, tired all the time, cold intolerance or hot flashes Murphy/Lymph: Denies: easy bruising or easy bleeding Medications/Allergies Home Medications ?Medication ?Instructions ?Recorded ?Confirmed ?Last Taken ?Type gabapentin 400 mg capsule 400 mg PO TID 30 days #90 ca ps 11/20/21 01/08/25 01/08/25 Rx hydrocodone 10 mg-acetaminophen 1 tab PO Q8H PRN Pain 03/21/24 01/08/25 06/27/24 History 325 mg tablet clopidogrel 75 mg tablet 75 mg PO DAILY #90 tabs 06/0901/08/25 01/08/25 Rx blood sugar diagnostic #100 ea 10/24/24 01/08/25 Un known Rx lancets #200 ea 10/24/24 01/08/25 Un known Rx cephalexin 500 mg capsule 500 mg PO BID 10 days #20 ca ps 12/21/24 01/08/25 01/08/25 Rx dulaglutide 1.5 mg/0.5 mL 1.5 mg (0.5 mL) SUBCUT .week ly 1 12/21/24 01/08/25 01/05/25 Rx subcutaneous pen injector month #2 mL (Trulicity) nicotine 14 mg/24 hr daily 1 patch transdermal DAILY # 28 ea 12/21/24 01/08/25 01/08/25 Rx transdermal patch atorvastatin 20 mg tablet 20 mg PO QPM 01/08/2501/07/25 History ketoconazole 2 % shampoo 1 applic topical .twice a we ek PRN 01/08/25 01/08/25 Unknown History scalp irritation metformin 1,000 mg tablet 1,000 mg PO BID 01/08/2501/3001/08/25 History mupirocin 2 % topical ointment 1 applic topical TID MI N skin 01/08/25 01/08/25 Unknown History irriyation tamsulosin 0.4 mg capsule 0.4 mg PO DAILY 01/08/2501/3001/07/25 History Allergies Allergy/AdvReac Type Severity Reaction Status Date / Time No Known Allergies Allergy Verified 01/04/25 07:59 PFSH Acute 2 PFSH: Medical History Tobacco dependence Nail deformity 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 Onychomycosis Dandruff Cellulitis of left foot Mild aortic stenosis Enrolled in chronic care management Fatigue Heart murmur Chronic instability of ankle Chronic ankle pain Prostate cancer screening Smoker unmotivated to quit Vitamin D deficiency Essential hypertension Toenail deformity Diabetic foot Encounter for long-term opiate analgesic use Opioid contract exists Long-term use of high-risk medication Chronic low back pain Surgical History S/P knee replacement LEFT KNEE REPLACEMENT 2019 Hx of toe surgery PIN PLACEMENT IN LEFT GREAT TOE Family History Other Cancer Congestive heart failure (CHF) Social History Smoking and tobacco/nicotine status: current every day tobacco/nicotine user cigarettes Packs smoked per day: 2 Alcohol intake: current Alcohol intake frequency: holidays/special occasions only Alcohol type: beer Substance/Drug Use: never Vitals/I&O/Wt Last Vital Signs Temp 99.5 F 01/08/25 14:37 Pulse 79 01/08/25 14:37 Resp 17 01/08/25 14:37 BP 107/65 01/08/25 15:43 Pulse Ox 96 01/08/25 15:43 O2 Del Method Room Air 01/08/25 14:37 Weight last 48 hrs Weight 77.111 kg Physical Exam 2 Narrative: General: No acute distress, AO x3 HEENT: PERRLA, pupils bilaterally equal and reactive, pallors not present Chest: Normal vesicular breath sounds, no added sounds, equal good air entry bilaterally CVS: S1-S2 regular, no murmurs, no tachycardia, no gallops, no rubs Abdomen: Soft, nontender, no organomegaly, bowel sounds present Neuro: No focal deficits, no facial deformity, AO x3, power 5/5 in all limbs Extremities: LLE externally rotated, unable to move 2/2 fracture Data 01/08/25 13:30 01/08/25 13:30 Other Labs: Radiology Impressions Hip/Pelvis X-Ray 01/08/25 14:35 IMPRESSION: Left hip fracture as above. Femur X-Ray 01/08/25 14:38 IMPRESSION: Intertrochanteric fracture with the remainder of the femur intact. Chest X-Ray 01/08/25 15:45 IMPRESSION: Stable chest without acute abnormality. Laboratory Results WBC 5.04 10^3/uL (3.29-11.43) 01/08/25 13:30 RBC 5.21 10^6/uL (3.85-5.65) 01/08/25 13:30 Hgb 16.40 g/dL (11.27-16.99) 01/08/25 13:30 Hct 50.1 % (37-53) 01/08/25 13:30 MCV 96.2 fl (82-101) 01/08/25 13:30 MCH 31.5 pg (27-33) 01/08/25 13:30 MCHC 32.7 g/dL (30-55) 01/08/25 13:30 RDW 12.3 % (12.1-15.1) 01/08/25 13:30 Plt Count 113 10^3/cmm (157-399) L 01/08/25 13:30 MPV 12.2 fL (7.4-10.4) H 01/08/25 13:30 Neut % (Auto) 59.5 % 01/08/25 13:30 Lymph % (Auto) 28.4 % 01/08/25 13:30 [place] % (Auto) 8.3 % 01/08/25 13:30 Eos % (Auto) 2.4 % 01/08/25 13:30 Baso % (Auto) 0.8 % 01/08/25 13:30 Neut # (Auto) 3.00 10^3/uL (1.8-7.7) 01/08/25 13:30 Lymph # (Auto) 1.4 10^3/uL (0.8-4.8) 01/08/25 13:30 [place] # (Auto) 0.4 10^3/uL (0.2-0.9) 01/08/25 13:30 Eos # (Auto) 0.1 10^3/uL (0.0-0.8) 01/08/25 13:30 Baso # (Auto) 0.0 10^3/uL (0.0-0.1) 01/08/25 13:30 Nucleated RBC % (auto) 0 % 01/08/25 13:30 Nucleated RBCs # 0.0 /100WBC 01/08/25 13:30 PT 12.90 SECONDS (12.1-14.9) 01/08/25 16:23 INR 0.91 (0.8-1.2) 01/08/25 16:23 Sodium 136 mmol/L (136-145) 01/08/25 13:30 Potassium 4.9 mmol/L (3.5-5.1) 01/08/25 13:30 Chloride 99 mmol/L (98-107) 01/08/25 13:30 Carbon Dioxide 28 mmol/L (22-29) 01/08/25 13:30 Anion Gap 13.9 (5-19) 01/08/25 13:30 BUN 19 mg/dL (8-23) 01/08/25 13:30 Creatinine 1.3 mg/dL (0.7-1.2) H 01/08/25 13:30 GFR Calculation Not Reportable 01/08/25 13:30 Glucose 147 mg/dL (65-115) H 01/08/25 13:30 Calculated Osmolality 287 mOsm/kg (285-295) 01/08/25 13:30 Calcium 9.2 mg/dL (8.5-10.5) 01/08/25 13:30 Total Bilirubin 0.6 mg/dL (0.15-1.2) 01/08/25 13:30 AST 21 U/L (0-40) 01/08/25 13:30 ALT 15 U/L (0-41) 01/08/25 13:30 Alkaline Phosphatase 104 U/L (40-130) 01/08/25 13:30 Total Protein 7.2 g/dL (6.6-8.7) 01/08/25 13:30 Albumin 4.1 g/dL (3.5-5.2) 01/08/25 13:30 Globulin 3.1 g/dL (1.3-4.6) 01/08/25 13:30 A&P Assessment and plan (1) Closed fracture of left hip: left hip fracture after mechanical fall no distal neurovascular deficit at this time orthopedic surgery has been consulted from the ER Patient chronically on eliquis due to h/o PAD, will hold Eliquis Last dose taken this morning Additionally hold Plavix for now while epnding fracture repair NPO post midnight as anticipate surgical fixation prn morphine and hydrocodone/APAP for pain management. Continue hoem dose of gabapentin (2) Type 2 diabetes mellitus: insulin sliding scale Qualifiers: Diabetes mellitus retirement insulin use: without retirement use Diabetes mellitus complication status: with skin complications Diabetes mellitus complication detail: with foot ulcer Qualified Code(s): E11.621 - Type 2 diabetes mellitus with foot ulcer; L97.509 - Non-pressure chronic ulcer of other part of unspecified foot with unspecified severity (3) COPD (chronic obstructive pulmonary disease): not currently exacerbated prn albuterol Plan c/o urinary retention, states he has not voided since this morning Bladder scan and luna placement continue flomax DVT ppx: Scd for now, to resume eliquis post operatievly Full code PDMP PDMP Reviewed: Not Reviewed Attestations 2 Medical Necessity Statement*: > 2 midinight stay is anticipated for surgical fixation, post op care Coding Level of Care Code Acute Code for [facility] Fwd Diagnoses Closed fracture of left hip S72.002A Type 2 diabetes mellitus with foot ulcer, without long-term current use of insulin E11.621; L97.509 Diabetes mellitus retirement insulin use: without retirement use Diabetes mellitus complication status: with skin complications Diabetes mellitus complication detail: with foot ulcer COPD (chronic obstructive pulmonary disease) J44.9
[2025-01-08 18:00] VITALS: BP 108/64; PULSE 86; RESP 14; O2SAT 96
[2025-01-08 21:06] VITALS: BP 109/71; PULSE 91; RESP 18; TEMP 36.7; O2SAT 92
[2025-01-08] MEDS: gabapentin 400 mg Capsule PO (22:03)
[2025-01-08] MEDS: cephALEXin 500 mg Capsule PO (22:03)
[2025-01-08] MEDS: atorvastatin 40 mg Tablet 20 MG PO (22:04)
[2025-01-08] MEDS: insulin lispro 100 unit/1 mL SUBCUT (22:04)
[2025-01-08] MEDS: HYDROcodone-acetaminophen 5-325 mg Tablet 1 TAB PO (22:15)
[2025-01-08] MEDS: sodium chloride 0.9% 1,000 ML 75 ML IV (22:22)
[2025-01-09] VITALS (8 sets, daily range): BP systolic 93–122; BP diastolic 54–74; PULSE 81–92; RESP 16–19; TEMP 36.4–37.1; O2SAT 93–96
--- NOTE | 2025-01-09 03:02 | PC.NURSE ---
assumed care of pt at 0302
[2025-01-09] MEDS: morphine 4 mg/mL SDV 1 mL 2 MG IVP ×2 (03:16→11:01)
--- NOTE | 2025-01-09 03:23 | PC.NURSE ---
at 2104 on 01/09/2025, pt bg is 187 per glucometer.
[2025-01-09 03:30] LABS: Basophils % 0.2 %; Eosinophils % 0.2 %; Hematocrit 48.1 % (37-53); Lymphocytes # 0.7 10^3/uL (0.8-4.8); Lymphocytes % 8.6 %; Mean Corpuscular HGB Conc 33.3 g/dL (30-55); Mean Corpuscular Hemoglobin 32.1 pg (27-33); Mean Corpuscular Volume 96.4 fl (82-101); Mean Platelet Volume 11.1 fL (7.4-10.4); Monocytes # 0.6 10^3/uL (0.2-0.9); Monocytes % 6.7 %; Neutrophils # 7.09 10^3/uL (1.8-7.7); Neutrophils % 83.8 %; Nucleated Red Blood Cells % 0 %; Platelet Count 136 10^3/cmm (157-399); Red Blood Count 4.99 10^6/uL (3.85-5.65); Red Cell Distribution Width 12.2 % (12.1-15.1); White Blood Count 8.47 10^3/uL (3.29-11.43)
--- NOTE | 2025-01-09 03:44 | PC.NURSE ---
pt transferred to hospital bed for comfort
[2025-01-09 03:50] LABS: Alanine Aminotransferase 14 U/L (0-41); Albumin Level 3.9 g/dL (3.5-5.2); Alkaline Phosphatase 102 U/L (40-130); Aspartate Amino Transferase 17 U/L (0-40); Blood Urea Nitrogen 21 mg/dL (8-23); Calcium 8.9 mg/dL (8.5-10.5); Carbon Dioxide 23 mmol/L (22-29); Chloride 101 mmol/L (98-107); Creatinine Clr Calc Pharmacy 81.2268; Globulin 3.4 g/dL (1.3-4.6); Glucose 172 mg/dL (65-115); Osmolality Calculated 287 mOsm/kg (285-295); Sodium 135 mmol/L (136-145); Total Bilirubin 1.1 mg/dL (0.15-1.2); Total Protein 7.3 g/dL (6.6-8.7)
[2025-01-09 03:52] LABS: Anion Gap 15.5 (5-19); Potassium 4.5 mmol/L (3.5-5.1)
[2025-01-09] MEDS: cephALEXin 500 mg Capsule PO ×2 (11:01→17:33)
[2025-01-09] MEDS: nicotine 14 mg Patch 1 PATCH TRANSDERMA (11:01)
[2025-01-09] MEDS: pantoprazole DR 40 mg Tablet PO (11:01)
[2025-01-09] MEDS: tamsulosin 0.4 mg Capsule PO (11:01)
[2025-01-09] MEDS: gabapentin 400 mg Capsule PO ×3 (11:01→20:45)
[2025-01-09] MEDS: cyclobenzaprine 10 mg Tablet 5 MG PO (11:12)
[2025-01-09] MEDS: sodium chloride 0.9% 1,000 ML 75 ML IV (11:15)
--- NOTE | 2025-01-09 12:10 | CTR_ITS ---
PROCEDURE INFORMATION: Exam: CT Left Lower Extremity, Hip Exam date and time: 01/10/2025 12:58 AM Age: 70 years old Clinical indication: Injury or trauma; Fall; Blunt trauma; Hip; Left; Additional info: Fracture hip TECHNIQUE: Imaging protocol: CT of the left lower extremity without contrast was performed. Exam focused on the hip. Radiation optimization: All CT scans at this facility use at least one of these dose optimization techniques: automated exposure control; mA and/or kV adjustment per patient size (includes targeted exams where dose is matched to clinical indication); or iterative reconstruction. COMPARISON: CT angio abd aorta runof [id number] 06/01/2024 8:10 AM RADIATION DOSE METRICS: Total DLP (mGy-cm): 262.61 FINDINGS: Bones/joints: Acute comminuted and displaced fracture at the base of the left femoral neck. No hip dislocation. Soft tissues: Soft tissue swelling. CT/CT hip LT wo con* [id number] IMPRESSION: Acute left proximal femur fracture. Recommend orthopedic evaluation.
[2025-01-09] MEDS: insulin lispro 100 unit/1 mL SUBCUT ×3 (12:25→22:09)
--- NOTE | 2025-01-09 15:39 | PM.CONSULT ---
Providers/Reason For Consult Consulting Physician/Specialty*: Dr. Ermias Christian MD, orthopedic surgery Reason for Consult*: Left hip fracture Attending Physician: Corrina Espinosa MD Primary Care Provider: JUDITH Kamara History of Present Illness History of Present Illness Mariaelena Treviño is a 70 year old male who fell at home last evening injuring his left hip. He is unable to bear weight on his left side and was brought to the ED at [facility] where x-rays demonstrated a left hip fracture. It was read off as a intertrochanteric hip fracture. Patient was admitted to the hospitalist service and orthopedic consultation was obtained. Patient is on Plavix and Eliquis at this time and surgery is not able to be done immediately. Review of Systems General: Reports: 10 or more systems reviewed and unremarkable except in HPI and below Medications/Allergies Home Medications ?Medication ?Instructions ?Recorded ?Confirmed ?Last Taken ?Type gabapentin 400 mg capsule 400 mg PO TID 30 days #90 caps 11/20/21 01/08/25 01/08/25 Rx hydrocodone 10 mg-acetaminophen 1 tab PO Q8H PRN Pain 03/21/24 01/08/25 06/27/24 History 325 mg tablet clopidogrel 75 mg tablet 75 mg PO DAILY #90 tabs 06/30/24 01/08/25 01/08/25 Rx blood sugar diagnostic #100 ea 10/24/24 01/08/25 Unknown Rx lancets #200 ea 10/24/24 01/08/25 Unknown Rx cephalexin 500 mg capsule 500 mg PO BID 10 days #20 caps 12/21/24 01/08/25 01/08/25 Rx dulaglutide 1.5 mg/0.5 mL 1.5 mg (0.5 mL) SUBCUT .weekly 1 12/21/24 01/08/25 01/05/25 Rx subcutaneous pen injector month #2 mL (Trulicity) nicotine 14 mg/24 hr daily 1 patch transdermal DAILY #28 ea 12/21/24 01/08/25 01/08/25 Rx transdermal patch atorvastatin 20 mg tablet 20 mg PO QPM 01/08/25 01/08/25 01/07/25 History ketoconazole 2 % shampoo 1 applic topical .twice a week PRN 01/08/25 01/08/25 Unknown History scalp irritation metformin 1,000 mg tablet 1,000 mg PO BID 01/08/25 01/08/25 01/08/25 History mupirocin 2 % topical ointment 1 applic topical TID PRN skin 01/08/25 01/08/25 Unknown History irriyation tamsulosin 0.4 mg capsule 0.4 mg PO DAILY 01/08/25 01/08/25 01/07/25 History Allergies Allergy/AdvReac Type Severity Reaction Status Date / Time No Known Allergies Allergy Verified 01/04/25 07:59 Current Medications Generic Name Dose Route Start Last Admin Trade Name Freq PRN Reason Stop Dose Admin Hydrocodone Bitart/Acetaminophen 1 tab 01/08/25 20:57 01/08/25 22:15 Hydrocodone-Acetaminophen 5-325 Mg Tablet PO 1 tab Q4H PRN Administration pain Atorvastatin Calcium 20 mg 01/08/25 21:00 01/08/25 22:04 Atorvastatin 40 Mg Tablet PO 20 mg QPM STEPHIE Administration Cephalexin HCl 500 mg 01/08/25 20:57 01/09/25 11:01 Cephalexin 500 Mg Capsule PO 500 mg BID STEPHIE Administration Protocol Cyclobenzaprine HCl 5 mg 01/09/25 10:55 01/09/25 11:12 Cyclobenzaprine 10 Mg Tablet PO 5 mg TID PRN Administration MUSCLE SPASMS Gabapentin 400 mg 01/08/25 21:00 01/09/25 15:38 Gabapentin 400 Mg Capsule PO 400 mg TID STEPHIE Administration Sodium Chloride 1,000 mls @ 75 mls/hr 01/08/25 21:45 01/09/25 11:15 Sodium Chloride 0.9% IV 75 mls/hr .[id number] STEPHIE Administration Insulin Human Lispro 0 unit 01/08/25 20:57 01/09/25 12:25 Insulin Lispro 100 Unit/1 Ml SUBCUT 2 unit WM&BEDTIME STEPHIE Administration Protocol Morphine Sulfate 2 mg 01/08/25 20:57 01/09/25 11:01 Morphine 4 Mg/Ml Sdv 1 Ml IVP 2 mg Q4H PRN Administration pain Nicotine 1 patch 01/09/25 09:00 01/09/25 11:01 Nicotine 14 Mg Patch TRANSDERMA 1 patch DAILY STEPHIE Administration Pantoprazole Sodium 40 mg 01/09/25 09:00 01/09/25 11:[address] 40 Mg Tablet PO 40 mg DAILY STEPHIE Administration Tamsulosin HCl 0.4 mg 01/09/25 09:00 01/09/25 11:01 Tamsulosin 0.4 Mg Capsule PO 0.4 mg DAILY STEPHIE Administration PFSH Acute PFSH: Medical History Tobacco dependence Nail deformity 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 Onychomycosis Dandruff Cellulitis of left foot Mild aortic stenosis Enrolled in chronic care management Fatigue Heart murmur Chronic instability of ankle Chronic ankle pain Prostate cancer screening Smoker unmotivated to quit Vitamin D deficiency Essential hypertension Toenail deformity Diabetic foot Encounter for long-term opiate analgesic use Opioid contract exists Long-term use of high-risk medication Chronic low back pain Surgical History S/P knee replacement LEFT KNEE REPLACEMENT 2019 Hx of toe surgery PIN PLACEMENT IN LEFT GREAT TOE Family History Other Cancer Congestive heart failure (CHF) Social History Smoking and tobacco/nicotine status: current every day tobacco/nicotine user cigarettes Packs smoked per day: 2 Alcohol intake: current Alcohol intake frequency: holidays/special occasions only Alcohol type: beer Substance/Drug Use: never Vitals/I&O/Wt Last Vital Signs Temp 98.3 F 01/09/25 12:00 Pulse 85 01/09/25 12:00 Resp 17 01/09/25 12:00 BP 104/68 01/09/25 12:00 Pulse Ox 95 01/09/25 12:00 O2 Del Method Room Air 01/09/25 12:00 01/09/25 01/09/25 01/09/25 06:59 14:59 22:59 Intake Total 1446.25 / 1446.25 Output Total 1600 / 1600 1300 / 1300 Balance -1600 / -600 146.25 / 146.25 Weight last 48 hrs Weight 174 lb Weight 170 lb Physical Exam Narrative: On orthopedic exam today patient is awake and alert and does not appear to be in any type of distress at this time. He has no other complaints other than his left hip pain. On examination of the leg he is neurovascular intact distally. He does not care for any manipulation of the hip. He has tenderness about the hip region as to be expected. No shortening or internal/external rotation. Const: COMMON NORMALS: patient oriented x3 Neck/C-Spine: COMMON NORMALS: full ROM Resp: COMMON NORMALS: normal respiratory effort Cardio: PERIPHERAL PULSES: posterior tibial pulses present Extremity: LEFT LOWER EXTREMITY: Yes hip joint (Painful to palpation) Left hip: Yes palpation Neuro: COMMON NORMALS: patient oriented x3 Psych: COMMON NORMALS: mental status grossly normal Skin: COMMON NORMALS: no rashes or lesions noted GENERAL SKIN EXAM: no rashes or lesions noted Urinary Catheter Management: Tee: Cath Placed During This Visit: yes Reason for Continuing Indwelling Catheter: Required Immobilization for Trauma or Surgery or Anesthesia Urinary Catheter Date of Insertion: 01/08/25 Urinary Catheter Time of Insertion: 19:37 Data 01/09/25 02:50 01/09/25 02:50 Xray Ortho: My impression: Review of the left hip x-rays demonstrates what appears to be a little femoral neck fracture versus intertrochanteric fracture. A&P Assessment and plan (1) Closed fracture of left hip: Patient has a closed left hip fracture. Possible low femoral neck versus intertrochanteric. Patient is on blood thinners at this time including Plavix and Eliquis Qualifiers: Encounter type: initial encounter Qualified Code(s): S72.002A - Fracture of unspecified part of neck of left femur, initial encounter for closed fracture Plan Plan at this time is surgical repair of the hip on January. CT scan has been ordered to identify and define the hip fracture better. Plan at this time is for endoprosthetic replacement unless otherwise indicated by the CT scan. PDMP PDMP Reviewed: Not Reviewed Coding Level of Care Code 56455 Diagnoses Closed fracture of left hip, initial encounter S72.002A Encounter type: initial encounter
[2025-01-09] MEDS: atorvastatin 40 mg Tablet 20 MG PO (17:33)
--- NOTE | 2025-01-09 17:41 | P.PN_ITS ---
Subjective 2 Subjective: Patient's pain is uncontrolled. He is complaining of additional spasms over the affected leg. Surgery is planned for tomorrow. Medications: Reviewed: Yes Vitals/I&O/Wt Last Vital Signs Temp 98.8 F 01/09/25 16:00 Pulse 92 01/09/25 16:00 Resp 18 01/09/25 16:00 BP 104/62 01/09/25 16:00 Pulse Ox 94 01/09/25 16:00 O2 Del Method Room Air 01/09/25 16:00 01/09/25 01/09/25 01/09/25 06:59 14:59 22:59 Intake Total 1446.25 / 1446.25 360 / 1806.25 Output Total 1600 / 1600 1300 / 1300 600 / 1900 Balance -1600 / -600 146.25 / 146.25 -240 / -93.75 Weight last 48 hrs Weight 78.925 kg Weight 77.111 kg Physical Exam 2 Narrative: General: No acute distress, AO x3 HEENT: PERRLA, pupils bilaterally equal and reactive, pallors not present Chest: Normal vesicular breath sounds, no added sounds, equal good air entry bilaterally CVS: S1-S2 regular, no murmurs, no tachycardia, no gallops, no rubs Abdomen: Soft, nontender, no organomegaly, bowel sounds present Neuro: No focal deficits, no facial deformity, AO x3, power 5/5 in all limbs Extremities: LLE externally rotated, unable to move 2/2 fracture Urinary Catheter Management: Luna: Cath Placed During This Visit: yes Reason for Continuing Indwelling Catheter: Required Immobilization for Trauma or Surgery or Anesthesia Urinary Catheter Date of Insertion: 01/08/25 Urinary Catheter Time of Insertion: 19:37 Data 01/09/25 02:50 01/09/25 02:50 A&P Assessment and plan (1) Closed fracture of left hip: left hip fracture after mechanical fall no distal neurovascular deficit at this time orthopedic surgery has been consulted from the ER Patient chronically on eliquis due to h/o PAD, will hold Eliquis Last dose taken this morning Additionally hold Plavix for now while epnding fracture repair NPO post midnight as anticipate surgical fixation prn morphine and hydrocodone/APAP for pain management. 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 use Diabetes mellitus complication status: with skin complications Diabetes mellitus complication detail: with foot ulcer Qualified Code(s): E11.621 - Type 2 diabetes mellitus with foot ulcer; L97.509 - Non-pressure chronic ulcer of other part of unspecified foot with unspecified severity (3) COPD (chronic obstructive pulmonary disease): not currently exacerbated prn albuterol Plan c/o urinary retention, states he has not voided since this morning Bladder scan and luna placement continue flomax DVT ppx: Scd for now, to resume eliquis post operatievly Full code January 09, 2025 Pain is uncontrolled. States he is having spasms over his left lower extremity. Added Flexeril 5 mg 3 times daily as needed. Likely he will have consistent relief once fracture has been surgically reduced. Patient is off Plavix and Eliquis currently. Planned surgery is on January. PDMP PDMP Reviewed: Not Reviewed Attestations 2 Medical Necessity Statement*: Planned surgical intervention tomorrow. 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
[2025-01-09] MEDS: HYDROcodone-acetaminophen 5-325 mg Tablet 1 TAB PO (21:00)
[2025-01-10] VITALS (9 sets, daily range): BP systolic 93–126; BP diastolic 56–74; PULSE 78–94; RESP 16–18; TEMP 36.4–36.9; O2SAT 92–95; BMI 23.6
[2025-01-10] MEDS: sodium chloride 0.9% 1,000 ML 75 ML IV ×2 (00:21→12:06)
[2025-01-10] MEDS: morphine 4 mg/mL SDV 1 mL 2 MG IVP (00:21)
[2025-01-10] MEDS: nicotine 14 mg Patch 1 PATCH TRANSDERMA (08:23)
[2025-01-10] MEDS: cephALEXin 500 mg Capsule PO (08:23)
[2025-01-10] MEDS: gabapentin 400 mg Capsule PO ×3 (08:23→21:13)
[2025-01-10] MEDS: cyclobenzaprine 10 mg Tablet 5 MG PO (08:23)
[2025-01-10] MEDS: HYDROcodone-acetaminophen 5-325 mg Tablet 1 TAB PO ×2 (08:23→17:33)
[2025-01-10] MEDS: tamsulosin 0.4 mg Capsule PO (08:23)
[2025-01-10] MEDS: insulin lispro 100 unit/1 mL SUBCUT ×4 (08:23→21:13)
[2025-01-10] MEDS: pantoprazole DR 40 mg Tablet PO (08:30)
[2025-01-10 10:36] LABS: Glucose Point of Care 215 mg/dL (70-110)
--- NOTE | 2025-01-10 14:40 | PC.SOCIAL ---
IMM UPDATED IMM dated and initialed, copy placed in chart and copy given to patient
[2025-01-10 16:43] LABS: Glucose Point of Care 226 mg/dL (70-110)
--- NOTE | 2025-01-10 16:45 | P.PN_ITS ---
Subjective 2 Subjective: Complains of uncontrolled pain over the left leg. Medications: Reviewed: Yes Vitals/I&O/Wt Last Vital Signs Temp 98.3 F 01/10/25 15:52 Pulse 83 01/10/25 15:52 Resp 17 01/10/25 15:52 BP 108/63 01/10/25 15:52 Pulse Ox 94 01/10/25 15:52 O2 Del Method Room Air 01/10/25 15:52 01/10/25 01/10/25 01/10/25 06:59 14:59 22:59 Intake Total 982.5 / 3268.75 1481.25 / 1481.25 Output Total 500 / 3900 1400 / 1400 1000 / 2400 Balance 482.5 / -631.25 81.25 / 81.25 -1000 / -918.75 Weight last 48 hrs Weight 78.925 kg Weight 78.925 kg Physical Exam 2 Narrative: General: No acute distress, AO x3 HEENT: PERRLA, pupils bilaterally equal and reactive, pallors not present Chest: Normal vesicular breath sounds, no added sounds, equal good air entry bilaterally CVS: S1-S2 regular, no murmurs, no tachycardia, no gallops, no rubs Abdomen: Soft, nontender, no organomegaly, bowel sounds present Neuro: No focal deficits, no facial deformity, AO x3, power 5/5 in all limbs Extremities: LLE externally rotated, unable to move 2/2 fracture Urinary Catheter Management: Luna: Cath Placed During This Visit: yes Reason for Continuing Indwelling Catheter: Accurate Measurement of Urinary Output in Critically Ill Patients Urinary Catheter Date of Insertion: 01/08/25 Urinary Catheter Time of Insertion: 19:37 Data 01/09/25 02:50 01/09/25 02:50 A&P Assessment and plan (1) Closed fracture of left hip: left hip fracture after mechanical fall no distal neurovascular deficit at this time orthopedic surgery has been consulted from the ER Patient chronically on eliquis due to h/o PAD, will hold Eliquis Last dose taken this morning Additionally hold Plavix for now while epnding fracture repair NPO post midnight as anticipate surgical fixation prn morphine and hydrocodone/APAP for pain management. Continue hoem dose of gabapentin Qualifiers: Encounter type: initial encounter Qualified Code(s): S72.002A - Fracture of unspecified part of neck of left femur, initial encounter for closed fracture (2) Type 2 diabetes mellitus: insulin sliding scale Qualifiers: Diabetes mellitus longterm insulin use: without longterm use Diabetes mellitus complication status: with skin complications Diabetes mellitus complication detail: with foot ulcer Qualified Code(s): E11.621 - Type 2 diabetes mellitus with foot ulcer; L97.509 - Non-pressure chronic ulcer of other part of unspecified foot with unspecified severity (3) COPD (chronic obstructive pulmonary disease): not currently exacerbated prn albuterol Plan c/o urinary retention, states he has not voided since this morning Bladder scan and luna placement continue flomax DVT ppx: Scd for now, to resume eliquis post operatievly Full code January 09, 2025 Pain is uncontrolled. States he is having spasms over his left lower extremity. Added Flexeril 5 mg 3 times daily as needed. Likely he will have consistent relief once fracture has been surgically reduced. Patient is off Plavix and Eliquis currently. Planned surgery is on , January 11, 2025. January 10, 2025 Continues to have uncontrolled pain. Will increase morphine to 4 mg IV every 4 hours as needed. Continue hydrocodone APAP orally 03/10/2025 every 4 as needed. Additionally add Toradol 15 mg IV every 8 hours as needed for pain management. Off Eliquis and Plavix. Anticipated surgical procedure tomorrow for ORIF. Discontinue IV fluids. He has been tolerating oral intake well. Urine output over 5000 cc. Once he is n.p.o. at midnight, will resume IV fluids. PDMP PDMP Reviewed: Not Reviewed Attestations 2 Medical Necessity Statement*: Anticipated surgical procedure tomorrow. 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
[2025-01-10] MEDS: atorvastatin 40 mg Tablet 20 MG PO (17:33)
[2025-01-10 21:11] LABS: Glucose Point of Care 233 mg/dL (70-110)
[2025-01-10] MEDS: morphine 4 mg/mL SDV 1 mL IVP (21:28)
[2025-01-10 21:53] LABS: Glucose Point of Care 186 mg/dL (70-110)
[2025-01-11] VITALS (22 sets, daily range): BP systolic 88–177; BP diastolic 50–95; PULSE 77–121; RESP 13–26; TEMP 36.6–37.1; O2SAT 91–98
[2025-01-11] MEDS: morphine 4 mg/mL SDV 1 mL IVP ×2 (05:33→15:23)
[2025-01-11 05:43] LABS: Basophils % 0.5 %; Eosinophils # 0.1 10^3/uL (0.0-0.8); Eosinophils % 1.5 %; Hematocrit 47.4 % (37-53); Lymphocytes % 12.4 %; Mean Corpuscular Hemoglobin 31.7 pg (27-33); Mean Corpuscular Volume 93.3 fl (82-101); Mean Platelet Volume 10.4 fL (7.4-10.4); Monocytes # 0.7 10^3/uL (0.2-0.9); Monocytes % 8.6 %; Neutrophils # 6.33 10^3/uL (1.8-7.7); Neutrophils % 76.8 %; Nucleated Red Blood Cells % 0 %; Platelet Count 130 10^3/cmm (157-399); Red Blood Count 5.08 10^6/uL (3.85-5.65); Red Cell Distribution Width 12.1 % (12.1-15.1); White Blood Count 8.24 10^3/uL (3.29-11.43)
[2025-01-11 06:00] LABS: Alanine Aminotransferase 15 U/L (0-41); Albumin Level 3.7 g/dL (3.5-5.2); Alkaline Phosphatase 97 U/L (40-130); Anion Gap 19.3 (5-19); Aspartate Amino Transferase 32 U/L (0-40); Blood Urea Nitrogen 12 mg/dL (8-23); Calcium 9.1 mg/dL (8.5-10.5); Carbon Dioxide 21 mmol/L (22-29); Chloride 100 mmol/L (98-107); Creatinine Clr Calc Pharmacy 91.1658; Globulin 3.5 g/dL (1.3-4.6); Glucose 178 mg/dL (65-115); Osmolality Calculated 286 mOsm/kg (285-295); Potassium 4.3 mmol/L (3.5-5.1); Sodium 136 mmol/L (136-145); Total Bilirubin 1.2 mg/dL (0.15-1.2); Total Protein 7.2 g/dL (6.6-8.7)
[2025-01-11] MEDS: tamsulosin 0.4 mg Capsule PO (08:42)
[2025-01-11] MEDS: gabapentin 400 mg Capsule PO ×3 (08:42→21:18)
[2025-01-11] MEDS: pantoprazole DR 40 mg Tablet PO (08:43)
[2025-01-11] MEDS: nicotine 14 mg Patch 1 PATCH TRANSDERMA (08:44)
[2025-01-11 10:38] LABS: Glucose Point of Care > 600 mg/dL (70-110)
[2025-01-11 10:38] LABS: Glucose Point of Care 179 mg/dL (70-110)
[2025-01-11] MEDS: sodium chloride 0.9% 1,000 ML 30 ML IV (11:04)
--- NOTE | 2025-01-11 11:37 | ANES.PREANE2 ---
Pre-Anesthetic Assessment Height/Weight: Height 1.83 m Weight 76.657 kg Temp Pulse Resp BP Pulse Ox O2 Del Method 98.0 F 94 17 109/71 91 Room Air 01/11/25 07:30 01/11/25 07:30 01/11/25 07:30 01/11/25 07:30 01/11/25 07:30 01/11/25 07:30 Preop Diagnosis: Left hip fracture Operation Date: 01/11/25 12:00 Proposed Procedures p Hemiarthroplasty Hip(Left) - Ermias Christian MD Familial anesthetic complications: None Was Beta Les taken within 24 hours: N/A Was Clonidine taken within 24 hours: N/A Last intake: > 8 hrs Social Tobacco (last cigarette > 7 days ago) and No alcohol Exam alert, oriented x 3, clear to auscultation bilaterally and regular rate & rhythm Airway Mallampati: Class II Dentition: false Comments: Comments: full rogel Pulmonary Chronic Obstructive Pulmonary Disease CV/HEM Peripheral Vascular Disease Metabolic Diabetes Mellitus Neuropsych Cerebrovascular Accident Residual L hemiparesis Anesthetic Plan ASA status: 3 Anesthesia: General Risk of > 500 ml blood loss (7ml/kg in children): No Medications/Allergies Home Medications ?Medication ?Instructions ?Recorded ?Confirmed ?Last Taken ?Type gabapentin 400 mg capsule 400 mg PO TID 30 days #90 caps 11/20/21 01/08/25 01/08/25 Rx hydrocodone 10 mg-acetaminophen 1 tab PO Q8H PRN Pain 03/21/24 01/08/25 06/27/24 History 325 mg tablet clopidogrel 75 mg tablet 75 mg PO DAILY #90 tabs 06/30/24 01/08/25 01/08/25 Rx blood sugar diagnostic #100 ea 10/24/24 01/08/25 Unknown Rx lancets #200 ea 10/24/24 01/08/25 Unknown Rx cephalexin 500 mg capsule 500 mg PO BID 10 days #20 caps 12/21/24 01/08/25 01/08/25 Rx dulaglutide 1.5 mg/0.5 mL 1.5 mg (0.5 mL) SUBCUT .weekly 1 12/21/24 01/08/25 01/05/25 Rx subcutaneous pen injector month #2 mL (Trulicity) nicotine 14 mg/24 hr daily 1 patch transdermal DAILY #28 ea 12/21/24 01/08/2501/08/25 Rx transdermal patch atorvastatin 20 mg tablet 20 mg PO QPM 01/08/25 01/08/25 01/07/25 History ketoconazole 2 % shampoo 1 applic topical .twice a week PRN 01/08/25 01/08/25 Unknown History scalp irritation metformin 1,000 mg tablet 1,000 mg PO BID 01/08/25 01/08/25 01/08/25 History mupirocin 2 % topical ointment 1 applic topical TID PRN skin 01/08/25 01/08/25 Unknown History irriyation tamsulosin 0.4 mg capsule 0.4 mg PO DAILY 01/08/25 01/08/25 01/07/25 History Allergies Allergy/AdvReac Type Severity Reaction Status Date / Time No Known Allergies Allergy Verified 01/04/25 07:59 Current Medications Generic Name Dose Route Start Last Admin Trade Name Freq PRN Reason Stop Dose Admin Hydrocodone Bitart/Acetaminophen 1 tab 01/08/25 20:57 01/10/25 17:33 Hydrocodone-Acetaminophen 5-325 Mg Tablet PO 1 tab Q4H PRN Administration pain Atorvastatin Calcium 20 mg 01/08/25 21:00 01/10/25 17:33 Atorvastatin 40 Mg Tablet PO 20 mg QPM STEPHIE Administration Cyclobenzaprine HCl 5 mg 01/09/25 10:55 01/10/25 08:23 Cyclobenzaprine 10 Mg Tablet PO 5 mg TID PRN Administration MUSCLE SPASMS Gabapentin 400 mg 01/08/25 21:00 01/11/25 08:42 Gabapentin 400 Mg Capsule PO 400 mg TID STEPHIE Administration Sodium Chloride 1,000 mls @ 75 mls/hr 01/08/25 21:45 01/10/25 12:06 Sodium Chloride 0.9% IV 75 mls/hr .[id number] STEPHIE Administration Sodium Chloride 1,000 mls @ 30 mls/hr 01/11/25 11:00 01/11/25 11:04 Sodium Chloride 0.9% IV 01/12/25 10:59 30 mls/hr .Q24H STEPHIE Administration Insulin Human Lispro 0 unit 01/08/25 20:57 01/11/25 07:57 Insulin Lispro 100 Unit/1 Ml SUBCUT Not Given WM&BEDTIME STEPHIE Protocol Morphine Sulfate 4 mg 01/10/25 16:41 01/11/25 05:33 Morphine 4 Mg/Ml Sdv 1 Ml IVP 4 mg Q4H PRN Administration SEVERE PAIN Nicotine 1 patch 01/09/25 09:00 01/11/25 08:44 Nicotine 14 Mg Patch TRANSDERMA 1 patch DAILY STEPHIE Administration Pantoprazole Sodium 40 mg 01/09/25 09:00 01/11/25 08:[address] 40 Mg Tablet PO 40 mg DAILY STEPHIE Administration Tamsulosin HCl 0.4 mg 01/09/25 09:00 01/11/25 08:42 Tamsulosin 0.4 Mg Capsule PO 0.4 mg DAILY STEPHIE Administration PFS Anesthesia Medical History Tobacco dependence Nail deformity 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 Onychomycosis Dandruff Cellulitis of left foot Mild aortic stenosis Enrolled in chronic care management Fatigue Heart murmur Chronic instability of ankle Chronic ankle pain Prostate cancer screening Smoker unmotivated to quit Vitamin D deficiency Essential hypertension Toenail deformity Diabetic foot Encounter for long-term opiate analgesic use Opioid contract exists Long-term use of high-risk medication Chronic low back pain Surgical History S/P knee replacement LEFT KNEE REPLACEMENT 2019 Hx of toe surgery PIN PLACEMENT IN LEFT GREAT TOE Family History Other Cancer Congestive heart failure (CHF) Social History Smoking and tobacco/nicotine status: current every day tobacco/nicotine user cigarettes Packs smoked per day: 2 Alcohol intake: current Alcohol intake frequency: holidays/special occasions only Alcohol type: beer Substance/Drug Use: never Data Anesthesia 01/11/25 05:32 01/11/25 05:32 Short CBC 01/11/25 Range/Units 05:32 WBC 8.24 (3.29-11.43) 10^3/uL Hgb 16.10 (11.27-16.99) g/dL Hct 47.4 (37-53) % MCV 93.3 (82-101) fl Plt Count 130 L (157-399) 10^3/cmm Neut % (Auto) 76.8 % Neut # (Auto) 6.33 (1.8-7.7) 10^3/uL BMP 01/11/25 05:32 Sodium 136 Potassium 4.3 Chloride 100 Carbon Dioxide 21 L BUN 12 Creatinine 0.7 Glucose 178 H Calcium 9.1 Liver Function 01/11/25 Range/Units 05:32 Total Bilirubin 1.2 (0.15-1.2) mg/dL AST 32 (0-40) U/L ALT 15 (0-41) U/L Alkaline Phosphatase 97 (40-130) U/L Albumin 3.7 (3.5-5.2) g/dL Cardiac Studies: Echocardiogram 06/09/24
[2025-01-11] MEDS: ceFAZolin 2,000 mg SDV 2000 MG IVP ×3 (12:19→22:20)
[2025-01-11] MEDS: BUPivacaine liposome 13.3 mg/mL SDV 20 mL 266 MG XX (13:45)
[2025-01-11] MEDS: BUPivacaine 0.5% INJ 30 mL 20 ML XX (13:45)
--- NOTE | 2025-01-11 13:48 | P.OP_ITS ---
Operative Report Date of procedure: January 11, 2025 Surgeon: Ermias Christian MD Procedure: Preop diagnosis: Left femoral neck fracture Postop diagnosis: Same Procedure: Endoprosthetic replacement left hip for fracture Surgeon: Ermias Christian MD Remote Computer Terminal Operator: JUDITH Torres assistance was necessary for positioning, prepping, positioning of the extremity, and wound closure. Anesthesia: General EBL: 50 cc Complications: None Indications: Velasquez is a 70-year-old white male who fell earlier this week injuring his left hip. He is unable to bear weight or ambulate. He was seen in the ED and x-rays there demonstrated a intertrochanteric hip fracture on the left. However my personal review of the x-rays that I felt there was a femoral neck fracture and subsequent CT scanning confirmed that it was a low femoral neck fracture. Therefore at this time patient was offered an endoprosthetic replacement of his left hip. Due to the fact that he was on anticoagulants we had to wait 3 days for those to clear before surgery would be safe. Therefore he is scheduled on state for endoprosthetic replacement of the left hip. All risk benefits treatment alternatives have been discussed with him prior to surge ry and he is agreeable to proceed with this. Procedure: After obtaining her consent patient was taken on his hospital bed into the operating room and general anesthetic administered. Once good anest hesia was achieved patient placed over onto the surgical table and then up in the lateral decubitus position with left hip up. Patient was secured to the bed with a pegboard and supports. All was padded well. Subsequently left hip and leg were prepped and draped usual fashion. After surgical timeout hip was flexed to 90 degrees and a minimally invasive direct lateral incision was made over the greater trochanter. Sharp dissection taken on down to subcutaneous tissues electrocautery used for hemostasis. Leg was gently internally rotated and dissection was taken on down along the posterior greater trochanter down to the femoral neck capsule. This is all debrided away from the femoral neck with the electrocautery and the capsule was opened in a T-type fashion. Piriformis tendon was also removed from the greater trochanter and peeled back laterally to expose the capsule. Once exposure was there leg was internally rotated to 90 degrees and femoral neck and head exposing just the fracture neck. Proximal femur was templated for appropriate cut. Sagittal saw was used to make femoral cut and excess bone was removed with rongeur's. Femoral head was removed a bone scoop and subsequently measured to a size 50 to 51 mm head. Acetabulum was washed with sterile irrigation and palpated to determine there is no bone fragments in the area. Trialfemoral head of a size 15 was placed in the acetabulum and manipulated found to be stable. This was removed. Box cut osteotome was used to make entry point the proximal femur. Hand reaming was then done then using broaches starting at 0 [address] the way up to a size 7 x 1 mm increments was done. Broaching was done carefully with a appropriate anteversion. This was done until good fit and fill was determined with a size 7 femoral stem. Therefore at this time a permanent worsening gross size 7 stem was then impacted into the proximal femur and secured. Trial standard neck and 50 mm head was then placed on the neck of the prosthesis and the hip was reduced and put range of motion found to be stable. Leg lengths were found to be equal. Hip was then dislocated. Trial head and neck were removed. Wound was washed with copious amounts of bulb lavage irrigation and then dried. Standard femoral neck was placed on the femoral prosthesis and impacted. Size 50 head was then placed on there with the Tong taper and impacted then hip was reduced but range of motion found to be stable. Again areas washed with bulb lavage irrigation. At this point capsule was repaired with #1 Vicryl [id number] sutures. Piriformis repaired back to the greater trochanter with #5 Ethibond [id number] suture through bone. Deep retractors were removed. Deep fascia was repaired with 0 Vicryl [id number] sutures. Subcutaneous tissue reapproximated with 0 Vicryl interrupted sutures. Skin was closed with skin leigh. Prior to closure exaprolol cocktail was then injected into the area for pain management. This included 20 of Exparel, 20 of Marcaine, and 50 cc of saline. Wound is clean and dry dressed with a appropriate dressings. Patient was awakened and transferred back to his hospital bed and then to the recovery room in stable condition.
--- NOTE | 2025-01-11 14:01 | XRR_ITS ---
PROCEDURE INFORMATION: Exam: XR Pelvis Exam date and time: 01/11/2025 2:15 PM Age: 70 years old Clinical indication: Device placement; Prior surgery; Surgery date: Post-operative (0-2 days); Surgery type: Hip replacement surgery TECHNIQUE: Imaging protocol: Radiologic exam of the pelvis. Views: 1 or 2 view. COMPARISON: CR XR hip LT 2-3V wo/w pel* [id number] 01/08/2025 3:19 PM FINDINGS: Bones/joints: There has been left total hip arthroplasty. Components are normally positioned. No lucency about the hardware. No fracture. Soft tissues: Unremarkable. XR/XR pelvis 1-2V* [id number] IMPRESSION: No acute findings. No evidence hardware complication.
[2025-01-11 14:50] LABS: Glucose Point of Care 180 mg/dL (70-110)
--- NOTE | 2025-01-11 14:50 | ANE.PACU2 ---
Inpatient post-anesthesia follow up: Airway intact: Yes Vital signs: Temperature 98.6 F Pulse Rate 97 Respiratory Rate 17 Blood Pressure 98/61 Pulse Oximetry 92 Oxygen Delivery Me thod Room Air Oxygen Flow Rate Fraction of Inspir ed Oxygen Hydration adequate: Yes Nausea and vomiting: No Pain level: 1 Mental status: Baseline
--- NOTE | 2025-01-11 15:03 | PM.PN ---
Subjective Subjective: Patient planned for operative intervention today. He was away in OR at the time of these rounds. Will attempt to see patient again postprocedure. Electrolytes all reviewed normal. No acute overnight events. Medications: Reviewed: Yes Vitals/I&O/Wt Last Vital Signs Temp 97.8 F 01/11/25 14:46 Pulse 89 01/11/25 14:46 Resp 17 01/11/25 14:46 BP 170/78 01/11/25 14:46 Pulse Ox 91 01/11/25 14:46 O2 Del Method Room Air 01/11/25 14:46 01/11/25 01/11/25 01/11/25 06:59 14:59 22:59 Intake Total 100 / 100 Output Total 300 / 4800 750 / 750 Balance -300 / -2078.75 -650 / -650 Weight last 48 hrs Weight 76.657 kg Weight 76.657 kg Weight 78.925 kg Physical Exam Narrative: Will attempt to see patient postoperatively today. Urinary Catheter Management: Luna: Cath Placed During This Visit: yes Reason for Continuing Indwelling Catheter: Acute Urinary Retention or Obstruction Urinary Catheter Date of Insertion: 01/08/25 Urinary Catheter Time of Insertion: 19:37 Data 01/11/25 05:32 01/11/25 05:32 A&P Assessment and plan (1) Closed fracture of left hip: left hip fracture after mechanical fall no distal neurovascular deficit at this time orthopedic surgery has been consulted from the ER Patient chronically on eliquis due to h/o PAD, will hold Eliquis Last dose taken this morning Additionally hold Plavix for now while epnding fracture repair NPO post midnight as anticipate surgical fixation prn morphine and hydrocodone/APAP for pain management. Continue hoem dose of gabapentin Qualifiers: Encounter type: initial encounter Qualified Code(s): S72.002A - Fracture of unspecified part of neck of left femur, initial encounter for closed fracture (2) Type 2 diabetes mellitus: insulin sliding scale Qualifiers: Diabetes mellitus skilled nursing insulin use: without skilled nursing use Diabetes mellitus complication status: with skin complications Diabetes mellitus complication detail: with foot ulcer Qualified Code(s): E11.621 - Type 2 diabetes mellitus with foot ulcer; L97.509 - Non-pressure chronic ulcer of other part of unspecified foot with unspecified severity (3) COPD (chronic obstructive pulmonary disease): not currently exacerbated prn albuterol Plan c/o urinary retention, states he has not voided since this morning Bladder scan and luna placement continue flomax DVT ppx: Scd for now, to resume eliquis post operatievly Full code January 09, 2025 Pain is uncontrolled. States he is having spasms over his left lower extremity. Added Flexeril 5 mg 3 times daily as needed. Likely he will have consistent relief once fracture has been surgically reduced. Patient is off Plavix and Eliquis currently. Planned surgery is on , January 11, 2025. January 10, 2025 Continues to have uncontrolled pain. Will increase morphine to 4 mg IV every 4 hours as needed. Continue hydrocodone APAP orally 03/10/2025 every 4 as needed. Additionally add Toradol 15 mg IV every 8 hours as needed for pain management. Off Eliquis and Plavix. Anticipated surgical procedure tomorrow for ORIF. Discontinue IV fluids. He has been tolerating oral intake well. Urine output over 5000 cc. Once he is n.p.o. at midnight, will resume IV fluids. January 11, 2025 Plan for surgical intervention today. No acute overnight events. Blood pressure has been ranging between 1 50-1 70 systolic. Will add amlodipine 5 mg p.o. daily and as needed hydralazine 10 mg IV every 4 hours for SBP greater than 160.Will resume Eliquis and Plavix post op when cleared by orthopedics PDMP PDMP Reviewed: Not Reviewed Attestations Medical Necessity Statement*: Planned surgical intervention today Coding Level of Care Code Acute Code for [facility] Fwd Diagnoses Closed fracture of left hip, initial encounter S72.002A Encounter type: initial encounter Type 2 diabetes mellitus with foot ulcer, without long-term current use of insulin E11.621; L97.509 Diabetes mellitus superintendent container terminal insulin use: without skilled nursing use Diabetes mellitus complication status: with skin complications Diabetes mellitus complication detail: with foot ulcer COPD (chronic obstructive pulmonary disease) J44.9
[2025-01-11] MEDS: sodium chloride 0.9% 1,000 ML 75 ML IV (15:24)
[2025-01-11] MEDS: HYDROcodone-acetaminophen 5-325 mg Tablet 1 TAB PO (15:56)
--- NOTE | 2025-01-11 15:58 | W.PM.OPSFHP ---
Same Day Surgery H&P Indication for Procedure/HPI DATE OF PROCEDURE: January 11, 2025 CHIEF COMPLAINT/INDICATIONFOR SURGICAL PROCEDURE: Painful left hip PREOP DIAGNOSIS: Left hip fracture PLANNED PROCEDURE: Operation Date: 01/11/25 12:00 Proposed Procedures p Hemiarthroplasty Hip(Left) - Ermias Christian MD Medications/Allergies* Home Medications ?Medication ?Instructions ?Recorded ?Confirmed ?Type hydrocodone 10 mg-acetaminophen 1 tab PO Q8H PRN Pain 03/21/24 01/08/25 History 325 mg tablet atorvastatin 20 mg tablet 20 mg PO QPM 01/08/25 01/08/25 History ketoconazole 2 % shampoo 1 applic topical .twice a week PRN 01/08/25 01/08/25 History scalp irritation metformin 1,000 mg tablet 1,000 mg PO BID 01/08/25 01/08/25 History mupirocin 2 % topical ointment 1 applic topical TID PRN skin 01/08/25 01/08/25 History irriyation tamsulosin 0.4 mg capsule 0.4 mg PO DAILY 01/08/25 01/08/25 History Allergies/Adverse Reactions Allergy/AdvReac Type Severity Reaction Status Date / Time No Known Allergies Allergy Verified 01/04/25 07:59 Current Medications: Generic Name Dose Route Start Last Admin Trade Name Freq PRN Reason Stop Dose Admin Hydrocodone Bitart/Acetaminophen 1 tab 01/08/25 20:57 01/11/25 15:56 Hydrocodone-Acetaminophen 5-325 Mg Tablet PO 1 tab Q4H PRN Administration pain Atorvastatin Calcium 20 mg 01/08/25 21:00 01/10/25 17:33 Atorvastatin 40 Mg Tablet PO 20 mg QPM STEPHIE Administration Cefazolin Sodium 2,000 mg 01/11/25 14:15 01/11/25 15:23 Cefazolin 2,000 Mg Sdv IVP 01/12/25 06:16 2,000 mg Q8H STEPHIE Administration Protocol Cyclobenzaprine HCl 5 mg 01/09/25 10:55 01/10/25 08:23 Cyclobenzaprine 10 Mg Tablet PO 5 mg TID PRN Administration MUSCLE SPASMS Gabapentin 400 mg 01/08/25 21:00 01/11/25 15:23 Gabapentin 400 Mg Capsule PO 400 mg TID STEPHIE Administration Sodium Chloride 1,000 mls @ 75 mls/hr 01/08/25 21:45 01/11/25 15:24 Sodium Chloride 0.9% IV 75 mls/hr .[id number] STEPHIE Administration Sodium Chloride 1,000 mls @ 30 mls/hr 01/11/25 11:00 01/11/25 11:04 Sodium Chloride 0.9% IV 01/12/25 10:59 30 mls/hr .Q24H STEPHIE Administration Insulin Human Lispro 0 unit 01/08/25 20:57 01/11/25 15:15 Insulin Lispro 100 Unit/1 Ml SUBCUT Not Given WM&BEDTIME STEPHIE Protocol Morphine Sulfate 4 mg 01/10/25 16:41 01/11/25 15:23 Morphine 4 Mg/Ml Sdv 1 Ml IVP 4 mg Q4H PRN Administration SEVERE PAIN Nicotine 1 patch 01/09/25 09:00 01/11/25 08:44 Nicotine 14 Mg Patch TRANSDERMA 1 patch DAILY STEPHIE Administration Pantoprazole Sodium 40 mg 01/09/25 09:00 01/11/25 08:[address] 40 Mg Tablet PO 40 mg DAILY STEPHIE Administration Tamsulosin HCl 0.4 mg 01/09/25 09:00 01/11/25 08:42 Tamsulosin 0.4 Mg Capsule PO 0.4 mg DAILY STEPHIE Administration Pertinent History/Comorbid Conditions* Medical History (Updated 01/09/25 @ 15:46 by Ermias Christian MD) Tobacco dependence Nail deformity 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 Onychomycosis Dandruff Cellulitis of left foot Mild aortic stenosis Enrolled in chronic care management Fatigue Heart murmur Chronic instability of ankle Chronic ankle pain Prostate cancer screening Smoker unmotivated to quit Vitamin D deficiency Essential hypertension Toenail deformity Diabetic foot Encounter for long-term opiate analgesic use Opioid contract exists Long-term use of high-risk medication Chronic low back pain Surgical History (Updated 04/30/22 @ 12:00 by Sindhu Khan MD) S/P knee replacement LEFT KNEE REPLACEMENT 2019 Hx of toe surgery PIN PLACEMENT IN LEFT GREAT TOE Family History (Updated 11/27/19 @ 12:08 by Ivanna Hernandez RN) Congestive heart failure (CHF) Cancer Social History Smoking and tobacco/nicotine status: current every day tobacco/nicotine user cigarettes Packs smoked per day: 2 Alcohol intake: current Alcohol intake frequency: holidays/special occasions only Alcohol type: beer Substance/Drug Use: never Pertinent Exam Findings alert, oriented x 3, clear to auscultation bilaterally, regular rate & rhythm, operative site marked and procedure specific exam findings Tender to palpation of left hip. Does not tolerate range of motion of the hip. Pertinent Data X-rays demonstrate femoral neck fracture of the left hip with CT scan to confirm this Recommendations Surgery/Procedure today Other Plans: Recommendations for endoprosthetic replacement of the hip Coding Level of Care Code Acute Code for [facility]
[2025-01-11 16:40] LABS: Glucose Point of Care 186 mg/dL (70-110)
[2025-01-11] MEDS: atorvastatin 40 mg Tablet 20 MG PO (17:10)
[2025-01-11] MEDS: calcium carbonate 500 mg Chew Tablet 1000 MG PO (17:10)
[2025-01-11] MEDS: chlorhexidine gluconate 0.12% Btl 473 mL 30 ML MUCOUS MEM ×2 (17:10→21:18)
[2025-01-11] MEDS: iron polysaccharide complex 150 mg Capsule PO (17:10)
[2025-01-11] MEDS: mupirocin oint 22 gm 1 APPLIC NASAL (17:11)
[2025-01-11] MEDS: sennosides-docusate Tablet 2 TAB PO (17:11)
[2025-01-11] MEDS: insulin lispro 100 unit/1 mL SUBCUT ×2 (17:18→22:20)
[2025-01-11] MEDS: cyclobenzaprine 10 mg Tablet 5 MG PO (21:18)
[2025-01-11 21:47] LABS: Glucose Point of Care 283 mg/dL (70-110)
[2025-01-12 00:07] VITALS: PULSE 90
[2025-01-12] MEDS: acetaminophen 325 mg Tablet 650 MG PO (00:49)
[2025-01-12 04:00] VITALS: BP 104/69; PULSE 101; RESP 21; TEMP 37.3; O2SAT 91
[2025-01-12] MEDS: sodium chloride 0.9% 1,000 ML 75 ML IV (04:20)
[2025-01-12] MEDS: ceFAZolin 2,000 mg SDV 2000 MG IVP (05:59)
[2025-01-12 06:00] VITALS: BMI 22.9
[2025-01-12 06:22] LABS: Glucose Point of Care 260 mg/dL (70-110)
[2025-01-12 06:47] LABS: Basophils % 0.2 %; Eosinophils # 0.1 10^3/uL (0.0-0.8); Eosinophils % 0.6 %; Hematocrit 41.4 % (37-53); Lymphocytes # 0.7 10^3/uL (0.8-4.8); Lymphocytes % 8.9 %; Mean Corpuscular HGB Conc 33.3 g/dL (30-55); Mean Corpuscular Hemoglobin 31.8 pg (27-33); Mean Corpuscular Volume 95.4 fl (82-101); Mean Platelet Volume 10.6 fL (7.4-10.4); Monocytes % 11.7 %; Neutrophils # 6.43 10^3/uL (1.8-7.7); Neutrophils % 78.1 %; Nucleated Red Blood Cells % 0 %; Platelet Count 144 10^3/cmm (157-399); Red Blood Count 4.34 10^6/uL (3.85-5.65); Red Cell Distribution Width 11.9 % (12.1-15.1); White Blood Count 8.23 10^3/uL (3.29-11.43)
[2025-01-12 07:10] LABS: Anion Gap 15.2 (5-19); Blood Urea Nitrogen 16 mg/dL (8-23); Calcium 8.4 mg/dL (8.5-10.5); Carbon Dioxide 21 mmol/L (22-29); Chloride 103 mmol/L (98-107); Creatinine Clr Calc Pharmacy 91.1658; Glucose 257 mg/dL (65-115); Osmolality Calculated 290 mOsm/kg (285-295); Potassium 4.2 mmol/L (3.5-5.1); Sodium 135 mmol/L (136-145)
[2025-01-12 08:00] VITALS: BP 98/61; BP 98/91; PULSE 97; RESP 17; RESP 92; TEMP 37; O2SAT 92
[2025-01-12] MEDS: sennosides-docusate Tablet 2 TAB PO ×2 (09:22→18:22)
[2025-01-12] MEDS: cholecalciferol (vitamin D3) 1,000 unit Tablet 1000 UNIT PO (09:22)
[2025-01-12] MEDS: insulin lispro 100 unit/1 mL SUBCUT ×4 (09:23→20:38)
[2025-01-12] MEDS: iron polysaccharide complex 150 mg Capsule PO ×2 (09:23→18:22)
[2025-01-12] MEDS: tamsulosin 0.4 mg Capsule PO (09:23)
[2025-01-12] MEDS: calcium carbonate 500 mg Chew Tablet 1000 MG PO ×2 (09:24→18:23)
[2025-01-12] MEDS: chlorhexidine gluconate 0.12% Btl 473 mL 30 ML MUCOUS MEM ×4 (09:24→20:31)
[2025-01-12] MEDS: gabapentin 400 mg Capsule PO (09:24)
[2025-01-12] MEDS: pantoprazole DR 40 mg Tablet PO (09:24)
[2025-01-12] MEDS: multivitamin therapeutic Tablet 1 TAB PO (09:24)
[2025-01-12] MEDS: amlodipine 5 mg Tablet PO (09:25)
[2025-01-12] MEDS: nicotine 14 mg Patch 1 PATCH TRANSDERMA (09:28)
[2025-01-12] MEDS: mupirocin oint 22 gm 1 APPLIC NASAL ×2 (09:28→18:23)
[2025-01-12 11:33] LABS: Glucose Point of Care 200 mg/dL (70-110)
[2025-01-12 11:45] VITALS: BP 109/73; PULSE 92; RESP 16; TEMP 37.1; O2SAT 97
--- NOTE | 2025-01-12 13:26 | P.PN_ITS ---
Subjective 2 Subjective: Patient is up to a chair today. States that he has done some stand and pivots but not much walking today. He is complaining of left hip pain. He needs to have his pain medication here soon by his statement. Medications: Reviewed: Yes Vitals/I&O/Wt Last Vital Signs Temp 98.8 F 01/12/25 11:45 Pulse 92 01/12/25 11:45 Resp 16 01/12/25 11:45 BP 109/73 01/12/25 11:45 Pulse Ox 97 01/12/25 11:45 O2 Del Method Room Air 01/12/25 11:45 01/11/25 01/12/25 01/12/25 22:59 06:59 14:59 Intake Total 2120 / 2220 970 / 3190 720 / 720 Output Total 1450 / 2200 275 / 2475 200 / 200 Balance 670 / 20 695 / 715 520 / 520 Weight last 48 hrs Weight 169 lb Weight 169 lb Weight 169 lb Physical Exam 2 Narrative: On exam today he states he does not have any motor function of his lower extremity however his friend was in the room says his leg did not work very well preoperatively due to a stroke he suffered sometime back. He does have good sensation in the foot and ankle with good pulses. However he is not able to dorsiflex his foot or his toes at this time. Dressing is clear. Urinary Catheter Management: Tee: Cath Placed During This Visit: yes Reason for Continuing Indwelling Catheter: Acute Urinary Retention or Obstruction Urinary Catheter Date of Insertion: 01/08/25 Urinary Catheter Time of Insertion: 19:37 Data 01/12/25 06:32 01/12/25 06:32 A&P Assessment and plan (1) Status post fracture of left hip: Patient is status post endoprosthetic replacement of his left hip fracture. Questioning neurological changes the left lower extremity versus residual from previous stroke Plan Plan at this time is to continue off the physical therapy and advancement of his ambulatory status. Will keep him partial weightbearing for approximately 2 weeks and then advance him from there if all is going well. PDMP PDMP Reviewed: Not Reviewed Attestations 2 Medical Necessity Statement*: Patient is status post hip replacement surgery for fracture. He is in need of a physical therapy and pain management as well as assistance with ADLs. Coding Level of Care Code 34730 Diagnoses Status post fracture of left hip Z87.81
[2025-01-12] MEDS: acetaminophen 1,000 MG/100 ML PIGGYBACK 400 MG IV ×2 (15:05→21:50)
[2025-01-12 15:32] VITALS: BP 145/69; PULSE 89; RESP 17; TEMP 37.2; O2SAT 96
--- NOTE | 2025-01-12 15:43 | PC.SOCIAL ---
IMM updated IMM dated and initialed, copy given to patient and copy placed in chart
[2025-01-12 16:39] LABS: Glucose Point of Care 246 mg/dL (70-110)
--- NOTE | 2025-01-12 18:11 | PM.PN ---
Subjective Subjective: Per nursing report patient was noted to be confused this morning. At the time of this assessment patient is awake alert and oriented x 3. His family is at bedside who states patient has had memory disturbances even in the past for the past several weeks. He has a home health aide who helps with his ADLs. They do not believe he is too far away from his baseline at this time. Patient states that his pain is still uncontrolled. Dose of opiates was reduced due to reported confusion. Gabapentin was additionally placed on hold for the same reason to avoid polypharmacy. Medications: Reviewed: Yes Vitals/I&O/Wt Last Vital Signs Temp 99.0 F 01/12/25 15:32 Pulse 89 01/12/25 15:32 Resp 17 01/12/25 15:32 BP 145/69 01/12/25 15:32 Pulse Ox 96 01/12/25 15:32 O2 Del Method Room Air 01/12/25 15:32 01/12/25 01/12/25 01/12/25 06:59 14:59 22:59 Intake Total 970 / 3190 720 / 720 Output Total 275 / 2475 200 / 200 Balance 695 / 715 520 / 520 Weight last 48 hrs Weight 76.657 kg Weight 76.657 kg Weight 76.657 kg Physical Exam Narrative: General: No acute distress, AO x3 HEENT: PERRLA, pupils bilaterally equal and reactive, pallors not present Chest: Normal vesicular breath sounds, no added sounds, equal good air entry bilaterally CVS: S1-S2 regular, no murmurs, no tachycardia, no gallops, no rubs Abdomen: Soft, nontender, no organomegaly, bowel sounds present Neuro: Does not move left lower extremity very well stating he has pain. Urinary Catheter Management: Luna: Cath Placed During This Visit: yes Reason for Continuing Indwelling Catheter: Acute Urinary Retention or Obstruction Urinary Catheter Date of Insertion: 01/12/25 Urinary Catheter Time of Insertion: 17:59 Data 01/12/25 06:32 01/12/25 06:32 A&P Assessment and plan (1) Closed fracture of left hip: left hip fracture after mechanical fall no distal neurovascular deficit at this time orthopedic surgery has been consulted from the ER Patient chronically on eliquis due to h/o PAD, will hold Eliquis Last dose taken this morning Additionally hold Plavix for now while epnding fracture repair NPO post midnight as anticipate surgical fixation prn morphine and hydrocodone/APAP for pain management. Continue hoem dose of gabapentin Qualifiers: Encounter type: initial encounter Qualified Code(s): S72.002A - Fracture of unspecified part of neck of left femur, initial encounter for closed fracture (2) Type 2 diabetes mellitus: insulin sliding scale Qualifiers: Diabetes mellitus extermination supervisor insulin use: without extermination supervisor use Diabetes mellitus complication status: with skin complications Diabetes mellitus complication detail: with foot ulcer Qualified Code(s): E11.621 - Type 2 diabetes mellitus with foot ulcer; L97.509 - Non-pressure chronic ulcer of other part of unspecified foot with unspecified severity (3) COPD (chronic obstructive pulmonary disease): not currently exacerbated prn albuterol Plan c/o urinary retention, states he has not voided since this morning Bladder scan and luna placement continue flomax DVT ppx: Scd for now, to resume eliquis post operatievly Full code January 09, 2025 Pain is uncontrolled. States he is having spasms over his left lower extremity. Added Flexeril 5 mg 3 times daily as needed. Likely he will have consistent relief once fracture has been surgically reduced. Patient is off Plavix and Eliquis currently. Planned surgery is on , January 11, 2025. January 10, 2025 Continues to have uncontrolled pain. Will increase morphine to 4 mg IV every 4 hours as needed. Continue hydrocodone APAP orally 03/10/2025 every 4 as needed. Additionally add Toradol 15 mg IV every 8 hours as needed for pain management. Off Eliquis and Plavix. Anticipated surgical procedure tomorrow for ORIF. Discontinue IV fluids. He has been tolerating oral intake well. Urine output over 5000 cc. Once he is n.p.o. at midnight, will resume IV fluids. January 11, 2025 Plan for surgical intervention today. No acute overnight events. Blood pressure has been ranging between 1 50-1 70 systolic. Will add amlodipine 5 mg p.o. daily and as needed hydralazine 10 mg IV every 4 hours for SBP greater than 160.Will resume Eliquis and Plavix post op when cleared by orthopedics January 12, 2025 Patient is status post surgical intervention yesterday. Complaining of pain. Dose of opiates had been cut back today after nursing report of patient being confused. At the time of this assessment he is alert awake and oriented. He has trouble remembering the names of people that have been visiting him. His visitors at bedside today state that patient has had memory disturbances for the past many months and do not feel that he is too far away from his baseline. Will optimize pain management with IV Tylenol, IV Toradol, Hydromorphone 0.5 mg every 6 hours as needed. Continue oxycodone/APAP 5-325 mg every 6 hrs prn . resume Plavix 75mg po daily. Upon admission patient had stated he is on Eliquis 2.5 mg twice daily, however in reviewing his MAR and prior clinic notes I am unable to find where he was prescribed Eliquis in the past. Will start DVT prophylaxis with Lovenox 40 mg daily until it can be confirmed that patient was indeed on Eliquis. Encourage participation with PT. PDMP PDMP Reviewed: Not Reviewed Attestations Medical Necessity Statement*: Continued pain management, ongoing need for therapy, appropriate disposition planning Coding Level of Care Code Acute Code for g Fwd Diagnoses Closed fracture of left hip, initial encounter S72.002A Encounter type: initial encounter Type 2 diabetes mellitus with foot ulcer, without long-term current use of insulin E11.621; L97.509 Diabetes mellitus extermination supervisor insulin use: without penitentiary use Diabetes mellitus complication status: with skin complications Diabetes mellitus complication detail: with foot ulcer COPD (chronic obstructive pulmonary disease) J44.9
[2025-01-12] MEDS: atorvastatin 40 mg Tablet 20 MG PO (18:22)
[2025-01-12] MEDS: clopidogrel 75 mg Tablet PO (19:07)
[2025-01-12] MEDS: enoxaparin 40 mg/0.4 mL Syringe SUBCUT (19:07)
[2025-01-12 19:46] VITALS: BP 90/59; PULSE 93; RESP 19; TEMP 36.6; O2SAT 93
[2025-01-12 20:11] LABS: Glucose Point of Care 224 mg/dL (70-110)
[2025-01-12 20:11] LABS: Glucose Point of Care 132 mg/dL (70-110)
[2025-01-12 20:11] LABS: Glucose Point of Care 239 mg/dL (70-110)
[2025-01-13] VITALS (10 sets, daily range): BP systolic 93–130; BP diastolic 61–70; PULSE 74–98; RESP 15–19; TEMP 36.5–37.2; O2SAT 92–96; BMI 23.0
[2025-01-13 05:30] LABS: Basophils % 0.4 %; Eosinophils # 0.2 10^3/uL (0.0-0.8); Eosinophils % 2.1 %; Hematocrit 41.4 % (37-53); Lymphocytes # 0.8 10^3/uL (0.8-4.8); Lymphocytes % 10.6 %; Mean Corpuscular HGB Conc 32.9 g/dL (30-55); Mean Corpuscular Hemoglobin 31.6 pg (27-33); Mean Corpuscular Volume 96.3 fl (82-101); Mean Platelet Volume 10.9 fL (7.4-10.4); Monocytes # 0.7 10^3/uL (0.2-0.9); Monocytes % 9.3 %; Neutrophils # 5.43 10^3/uL (1.8-7.7); Nucleated Red Blood Cells % 0 %; Platelet Count 125 10^3/cmm (157-399); Red Cell Distribution Width 12.1 % (12.1-15.1); White Blood Count 7.06 10^3/uL (3.29-11.43)
[2025-01-13] MEDS: acetaminophen 1,000 MG/100 ML PIGGYBACK 400 MG IV (05:39)
[2025-01-13 05:54] LABS: Alanine Aminotransferase 12 U/L (0-41); Albumin Level 3.4 g/dL (3.5-5.2); Alkaline Phosphatase 83 U/L (40-130); Anion Gap 12.2 (5-19); Aspartate Amino Transferase 25 U/L (0-40); Blood Urea Nitrogen 14 mg/dL (8-23); Calcium 8.8 mg/dL (8.5-10.5); Carbon Dioxide 28 mmol/L (22-29); Chloride 103 mmol/L (98-107); Creatinine Clr Calc Pharmacy 91.3802; Globulin 3.1 g/dL (1.3-4.6); Glucose 166 mg/dL (65-115); Osmolality Calculated 292 mOsm/kg (285-295); Potassium 4.2 mmol/L (3.5-5.1); Sodium 139 mmol/L (136-145); Total Bilirubin 1.1 mg/dL (0.15-1.2); Total Protein 6.5 g/dL (6.6-8.7)
[2025-01-13] MEDS: ketorolac 30 mg/mL INJ 15 MG IVP ×2 (05:58→23:45)
[2025-01-13 07:54] LABS: Glucose Point of Care 196 mg/dL (70-110)
[2025-01-13] MEDS: cholecalciferol (vitamin D3) 1,000 unit Tablet 1000 UNIT PO (08:35)
[2025-01-13] MEDS: tamsulosin 0.4 mg Capsule PO (08:35)
[2025-01-13] MEDS: pantoprazole DR 40 mg Tablet PO (08:35)
[2025-01-13] MEDS: multivitamin therapeutic Tablet 1 TAB PO (08:35)
[2025-01-13] MEDS: calcium carbonate 500 mg Chew Tablet 1000 MG PO ×2 (08:35→17:57)
[2025-01-13] MEDS: sennosides-docusate Tablet 2 TAB PO ×2 (08:36→17:57)
[2025-01-13] MEDS: iron polysaccharide complex 150 mg Capsule PO ×2 (08:36→17:57)
[2025-01-13] MEDS: clopidogrel 75 mg Tablet PO (08:36)
[2025-01-13] MEDS: nicotine 14 mg Patch 1 PATCH TRANSDERMA (08:36)
[2025-01-13] MEDS: chlorhexidine gluconate 0.12% Btl 473 mL 30 ML MUCOUS MEM ×4 (08:37→21:31)
[2025-01-13] MEDS: insulin lispro 100 unit/1 mL SUBCUT ×4 (08:37→21:31)
[2025-01-13] MEDS: mupirocin oint 22 gm 1 APPLIC NASAL ×2 (08:37→17:57)
--- NOTE | 2025-01-13 10:32 | P.PN_ITS ---
Subjective 2 Subjective: Nursing reports no concerns today. Patient states his pain is under better control today. He is presently is working with physical therapy in the room. Medications: Reviewed: Yes Vitals/I&O/Wt Last Vital Signs Temp 98.0 F 01/13/25 08:00 Pulse 82 01/13/25 08:00 Resp 16 01/13/25 08:00 BP 130/70 01/13/25 08:00 Pulse Ox 96 01/13/25 08:00 O2 Del Method Room Air 01/13/25 08:00 01/12/25 01/13/25 01/13/25 22:59 06:59 14:59 Intake Total 1200 / 1920 100 / 2020 Output Total 900 / 1100 600 / 1700 Balance 300 / 820 -500 / 320 Weight last 48 hrs Weight 170 lb Weight 169 lb Physical Exam 2 Narrative: General: No acute distress, AO x3 HEENT: PERRLA, pupils bilaterally equal and reactive, pallors not present Chest: Normal vesicular breath sounds, no added sounds, equal good air entry bilaterally CVS: S1-S2 regular, no murmurs, no tachycardia, no gallops, no rubs Abdomen: Soft, nontender, no organomegaly, bowel sounds present Neuro: Does not move left lower extremity very well stating he has pain. Orthopedic exam today demonstrates surgical dressing intact. Patient is unchanged his neurological and motor status distally. He does have some previous paralysis from old stroke. Otherwise has good sensation on the way down to the toes. Skin is warm and pink Urinary Catheter Management: Tee: Cath Placed During This Visit: yes Reason for Continuing Indwelling Catheter: Acute Urinary Retention or Obstruction Urinary Catheter Date of Insertion: 01/12/25 Urinary Catheter Time of Insertion: 17:59 Data 01/13/25 04:44 01/13/25 04:44 A&P Assessment and plan (1) Closed fracture of left hip: Status post endoprosthetic replacement of the left hip for fracture. He is doing well at this time. Qualifiers: Encounter type: initial encounter Qualified Code(s): S72.002A - Fracture of unspecified part of neck of left femur, initial encounter for closed fracture (2) Type 2 diabetes mellitus: insulin sliding scale Qualifiers: Diabetes mellitus skilled nursing insulin use: without long term acute care registered nurse use Diabetes mellitus complication status: with skin complications Diabetes mellitus complication detail: with foot ulcer Qualified Code(s): E11.621 - Type 2 diabetes mellitus with foot ulcer; L97.509 - Non-pressure chronic ulcer of other part of unspecified foot with unspecified severity (3) COPD (chronic obstructive pulmonary disease): not currently exacerbated prn albuterol Plan Plan at this time is continue with formal physical therapy. Will remove his Tee catheter today. I will also have nursing change his dressing out also. PDMP PDMP Reviewed: Not Reviewed Attestations 2 Medical Necessity Statement*: Continued pain management, ongoing need for therapy, appropriate disposition planning Patient may need short-term stay in [facility]. Coding Level of Care Code 29779 Diagnoses Closed fracture of left hip, initial encounter S72.002A Encounter type: initial encounter Type 2 diabetes mellitus with foot ulcer, without long-term current use of insulin E11.621; L97.509 Diabetes mellitus long term acute care registered nurse insulin use: without long term acute care registered nurse use Diabetes mellitus complication status: with skin complications Diabetes mellitus complication detail: with foot ulcer COPD (chronic obstructive pulmonary disease) J44.9
--- NOTE | 2025-01-13 11:17 | PC.NURSE ---
Bladder scan on patient 01/12/2025 at end of shift per Dr. Espinosa place luna catheter due to urinary retention.
--- NOTE | 2025-01-13 11:22 | PC.NURSE ---
Notified Dr. Christian of urinary retention with a luna being placed by another nurse.
[2025-01-13 13:00] LABS: Glucose Point of Care 348 mg/dL (70-110)
--- NOTE | 2025-01-13 16:02 | CTR_ITS ---
PROCEDURE INFORMATION: Exam: CTA Head With Contrast, Arteriography Exam date and time: 01/13/2025 11:21 PM Age: 70 years old Clinical indication: Weakness and other: Urinary retention; Patient having urinary retention and unable to ambulate left lower extremity since left elidia surgery on 01/11/2025. History of RT parietal CVA. ; Additional info: CVA, mechanical fall with hip fracture, unable to move lle post TECHNIQUE: Imaging protocol: Computed tomographic angiography of the head with contrast. Exam focused on the arteries. 3D rendering (Not supervised by radiologist): MIP and/or 3D reconstructed images were created by the technologist. Radiation optimization: All CT scans at this facility use at least one of these dose optimization techniques: automated exposure control; mA and/or kV adjustment per patient size (includes targeted exams where dose is matched to clinical indication); or iterative reconstruction. Contrast material: OMNI 350; Contrast volume: 85 ml; Contrast route: INTRAVENOUS (IV); COMPARISON: CT head wo con* [id number] 12/28/2022 3:37 PM RADIATION DOSE METRICS: Total DLP (mGy-cm): 1015.29 FINDINGS: ANTERIOR CIRCULATION: Right internal carotid artery: There is occlusion of the intracranial internal carotid artery on the right with some reflux into the distal clinoid segment secondary to collateral filling of the anterior and middle cerebral arteries on the right by way of the A-comm. This is likely a chronic finding view of the presence of a chronic right parietal lobe infarction. Right middle cerebral artery: See Right internal carotid artery finding. Right anterior cerebral artery: No occlusion or significant stenosis. No aneurysm. Left internal carotid artery: Intracranial segment is patent with no significant stenosis. No aneurysm. Left middle cerebral artery: No occlusion or significant stenosis. No aneurysm. Left anterior cerebral artery: No occlusion or significant stenosis. No aneurysm. POSTERIOR CIRCULATION: Right vertebral artery: No occlusion or significant stenosis. No aneurysm. Left vertebral artery: No occlusion or significant stenosis. No aneurysm. Basilar artery: No occlusion or significant stenosis. No aneurysm. Right posterior cerebral artery: No occlusion or significant stenosis. No aneurysm. Left posterior cerebral artery: No occlusion or significant stenosis. No aneurysm. Brain: There is mild diffuse cerebral atrophy. Broad area of hypoattenuation and encephalomalacia seen within the right parietal lobe compatible with a chronic infarction. This finding is stable compared with 12/28/2022. Cerebral ventricles: No ventriculomegaly. Bones/joints: Unremarkable. No acute fracture. Soft tissues: Unremarkable. PROCEDURE INFORMATION: Exam: CTA Neck With Contrast Exam date and time: 01/13/2025 11:21 PM Age: 70 years old Clinical indication: Weakness and other: Urinary retention; Patient having urinary retention and unable to ambulate left lower extremity since left elidia surgery on 01/11/2025. History of RT parietal CVA. ; Additional info: CVA, mechanical fall with hip fracture, unable to move lle post TECHNIQUE: Imaging protocol: Computed tomographic angiography of the neck with contrast. Exam focused on the cervical segments of the vasculature. 3D rendering (Not supervised by radiologist): MIP and/or 3D reconstructed images were created by the technologist. Radiation optimization: All CT scans at this facility use at least one of these dose optimization techniques: automated exposure control; mA and/or kV adjustment per patient size (includes targeted exams where dose is matched to clinical indication); or iterative reconstruction. Contrast material: OMNI 350; Contrast volume: 85 ml; Contrast route: INTRAVENOUS (IV); COMPARISON: CT head wo con* [id number] 12/28/2022 3:37 PM RADIATION DOSE METRICS: Total DLP (mGy-cm): 1015.29 FINDINGS: Right common carotid artery: No stenosis. No dissection or occlusion. Right internal carotid artery: There is origin occlusion of the right internal carotid artery. This is likely chronic given findings of chronic right parietal infarction. Right external carotid artery: No occlusion or stenosis of the origin. Left common carotid artery: No stenosis. No dissection or occlusion. Left internal carotid artery: No stenosis of the extracranial segment. No dissection or occlusion. Left external carotid artery: No occlusion or stenosis of the origin. Right vertebral artery: No stenosis. No dissection or occlusion. Left vertebral artery: No stenosis. No dissection or occlusion. Soft tissues: Normal. No significant soft tissue swelling. Bones/joints: No acute fracture. CT/CT angio headneck* [id number] IMPRESSION: 1. Chronic right parietal lobe infarction. 2. Absent flow within the right intracranial carotid artery with reconstitution of the right CLARICE and MCA via the A-comm. This is likely a chronic finding in view of the presence of chronic right parietal lobe infarction. 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 This is likely a chronic finding. REFERENCES: NASCET CRITERIA. The degree of stenosis in the cervical segment of the internal carotid artery is based on NASCET criteria. Normal is no stenosis. Mild is less than 50% stenosis. Moderate is 50-69% stenosis. Severe is 70% to 99% stenosis. Total occlusion is no detectable patent lumen.
--- NOTE | 2025-01-13 16:02 | CTR_ITS ---
PROCEDURE INFORMATION: Exam: CT Lumbar Spine With Contrast Exam date and time: 01/13/2025 11:27 PM Age: 70 years old Clinical indication: Weakness and other: Urinary retention; Patient having urinary retention and unable to ambulate left lower extremity since left elidia surgery on 01/11/2025. History of RT parietal CVA. ; Additional info: Lle weakness, urinary retention, S/P surgical fixation of left hip, unable to move lle post TECHNIQUE: Imaging protocol: Computed tomography of the lumbar spine with contrast. Radiation optimization: All CT scans at this facility use at least one of these dose optimization techniques: automated exposure control; mA and/or kV adjustment per patient size (includes targeted exams where dose is matched to clinical indication); or iterative reconstruction. Contrast material: OMNI 350; Contrast volume: 60 ml; Contrast route: INTRAVENOUS (IV); COMPARISON: MR lumbar spine wo con* [id number] 10/21/2020 10:41 AM RADIATION DOSE METRICS: Total DLP (mGy-cm): 719.07 FINDINGS: Bones/joints: No acute fracture. Normal alignment. The bone density is decreased. There is mild anterior osteophyte formation throughout the lumbar spine. L1-L2: There is a shallow disc bulge. No significant neural foraminal or canal narrowing. L2-L3: There is a shallow disc bulge. There is thickening of the ligamentum flavum. Mild canal and bilateral neural foraminal narrowing. L3-L4: There is a broad disc bulge. Facet arthropathy present with thickening of the ligamentum flavum. There is moderate canal narrowing at this level. Bilateral mild neural foraminal narrowing. L4-L5: There is a broad disc bulge. Facet arthropathy present with thickening of the ligamentum flavum there is mild canal and bilateral [id number]-[id number] neural foraminal narrowing. L5-S1: There is a broad disc/osteophyte complex. There is mild canal narrowing. There is moderate to severe right [id number] left neural foraminal narrowing. Soft tissues: Unremarkable. CT/CT lumbar spine w con [id number] IMPRESSION: No acute findings. Multilevel degenerative changes involving the lumbar spine as detailed above. Findings are most severe involving the lower lumbar spine.
--- NOTE | 2025-01-13 16:12 | P.PN_ITS ---
Subjective 2 Subjective: Patient's pain is much better controlled today. Fingersticks ranging up to 348. Medications: Reviewed: Yes Vitals/I&O/Wt Last Vital Signs Temp 97.8 F 01/13/25 12:00 Pulse 97 01/13/25 14:00 Resp 15 01/13/25 12:00 BP 93/61 01/13/25 12:00 Pulse Ox 94 01/13/25 12:00 O2 Del Method Room Air 01/13/25 12:00 01/13/25 01/13/25 01/13/25 06:59 14:59 22:59 Intake Total 100 / 2020 240 / 240 Output Total 600 / 1700 Balance -500 / 320 240 / 240 Weight last 48 hrs Weight 77.111 kg Weight 76.657 kg Physical Exam 2 Narrative: General: No acute distress, AO x3 HEENT: PERRLA, pupils bilaterally equal and reactive, pallors not present Chest: Normal vesicular breath sounds, no added sounds, equal good air entry bilaterally CVS: S1-S2 regular, no murmurs, no tachycardia, no gallops, no rubs Abdomen: Soft, nontender, no organomegaly, bowel sounds present Neuro: Does not move left lower extremity very well stating he has pain. Urinary Catheter Management: Luna: Cath Placed During This Visit: yes Reason for Continuing Indwelling Catheter: Acute Urinary Retention or Obstruction Urinary Catheter Date of Insertion: 01/12/25 Urinary Catheter Time of Insertion: 17:59 Data 01/13/25 04:44 01/13/25 04:44 A&P Assessment and plan (1) Closed fracture of left hip: left hip fracture after mechanical fall no distal neurovascular deficit at this time orthopedic surgery has been consulted from the ER Patient chronically on eliquis due to h/o PAD, will hold Eliquis Last dose taken this morning Additionally hold Plavix for now while epnding fracture repair NPO post midnight as anticipate surgical fixation prn morphine and hydrocodone/APAP for pain management. 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 Diabetes mellitus complication status: with skin complications Diabetes mellitus complication detail: with foot ulcer Qualified Code(s): E11.621 - Type 2 diabetes mellitus with foot ulcer; L97.509 - Non-pressure chronic ulcer of other part of unspecified foot with unspecified severity (3) COPD (chronic obstructive pulmonary disease): not currently exacerbated prn albuterol Plan c/o urinary retention, states he has not voided since this morning Bladder scan and luna placement continue flomax DVT ppx: Scd for now, to resume eliquis post operatievly Full code January 09, 2025 Pain is uncontrolled. States he is having spasms over his left lower extremity. Added Flexeril 5 mg 3 times daily as needed. Likely he will have consistent relief once fracture has been surgically reduced. Patient is off Plavix and Eliquis currently. Planned surgery is on , January 11, 2025. January 10, 2025 Continues to have uncontrolled pain. Will increase morphine to 4 mg IV every 4 hours as needed. Continue hydrocodone APAP orally 03/10/2025 every 4 as needed. Additionally add Toradol 15 mg IV every 8 hours as needed for pain management. Off Eliquis and Plavix. Anticipated surgical procedure tomorrow for ORIF. Discontinue IV fluids. He has been tolerating oral intake well. Urine output over 5000 cc. Once he is n.p.o. at midnight, will resume IV fluids. January 11, 2025 Plan for surgical intervention today. No acute overnight events. Blood pressure has been ranging between 1 50-1 70 systolic. Will add amlodipine 5 mg p.o. daily and as needed hydralazine 10 mg IV every 4 hours for SBP greater than 160.Will resume Eliquis and Plavix post op when cleared by orthopedics January 12, 2025 Patient is status post surgical intervention yesterday. Complaining of pain. Dose of opiates had been cut back today after nursing report of patient being confused. At the time of this assessment he is alert awake and oriented. He has trouble remembering the names of people that have been visiting him. His visitors at bedside today state that patient has had memory disturbances for the past many months and do not feel that he is too far away from his baseline. Will optimize pain management with IV Tylenol, IV Toradol, Hydromorphone 0.5 mg every 6 hours as needed. Continue oxycodone/APAP 5-325 mg every 6 hrs prn . resume Plavix 75mg po daily. Upon admission patient had stated he is on Eliquis 2.5 mg twice daily, however in reviewing his MAR and prior clinic notes I am unable to find where he was prescribed Eliquis in the past. Will start DVT prophylaxis with Lovenox 40 mg daily until it can be confirmed that patient was indeed on Eliquis. Encourage participation with PT. January 13, 2025 His pain is much better controlled today. His mental status is improved, he is much more alert and awake today. He has some baseline memory impairment but accounts by family at bedside. He appears to be close to his baseline mentation currently. Will resume gabapentin. Luna catheter was attempted to be removed yesterday, however resulted in urinary retention and needed to be replaced. At the time of this assessment patient is not moving his left leg. He is mainly using his right leg to pivot and transfer. He is examined while sitting in chair currently, he is not flexing at the knee or at the hip. Unable to hold the leg up when passively attempted to be grossly flexed at the knee. 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 Extensively reviewed outpatient notes going back to 2021. On a recent podiatry visit he was noted to have weak dorsiflexion at the ankle. Dating back to 2021, review of orthopedic notes show that he had range of motion at the knee though somewhat limited due to left knee replacement. Patient insists that he was able to move his legs at the knee and able to hold it up against gravity prior to this current admission. He has been unable to move that leg since admission, previously attributed to the fracture. Possible that he may need some therapy going forward to improve his left extremity strength, however with concomitant urinary retention concern for potential lumbar injury and nerve compression that may have been precipitated by his fall. Will perform CT of the lumbar spine. Additionally obtain CT head and CTA of the head and neck to evaluate for any new strokes while patient remained off his antiplatelets. I am uncertain of the reliability of patient's history and assessment of his left leg function given reported accounts of memory impairment. He has previously stated he was on Eliquis however this was no longer found on his MAR or any of his outpatient records. Increase sliding scale to high dose awaiting dispsoition planning continued therapy to be beneficial PDMP PDMP Reviewed: Not Reviewed Attestations 2 Medical Necessity Statement*: disposition planning Coding Level of Care Code Acute Code for Chg Fwd High MDM includes number and complexity of problems actively addressed during encounter, amount and/or complexity of data reviewed/ordered and described risk of complication, morbidity or mortality of management as documented Diagnoses Closed fracture of left hip, initial encounter S72.002A Encounter type: initial encounter Type 2 diabetes mellitus with foot ulcer, without long-term current use of insulin E11.621; L97.509 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
[2025-01-13 17:11] LABS: Glucose Point of Care 253 mg/dL (70-110)
[2025-01-13] MEDS: enoxaparin 40 mg/0.4 mL Syringe SUBCUT (17:56)
[2025-01-13] MEDS: atorvastatin 40 mg Tablet 20 MG PO (17:57)
[2025-01-13] MEDS: acetaminophen 325 mg Tablet 650 MG PO (18:08)
[2025-01-13 20:48] LABS: Glucose Point of Care 157 mg/dL (70-110)
[2025-01-13] MEDS: iohexol 350 mg/mL 500 mL Btl (per mL) IV (23:35)
[2025-01-14] VITALS (10 sets, daily range): BP systolic 92–134; BP diastolic 53–65; PULSE 66–91; RESP 15–18; TEMP 36.3–37.1; O2SAT 93–97
[2025-01-14 04:53] LABS: Basophils % 0.4 %; Eosinophils # 0.2 10^3/uL (0.0-0.8); Eosinophils % 2.6 %; Hematocrit 36.9 % (37-53); Lymphocytes # 0.8 10^3/uL (0.8-4.8); Lymphocytes % 11.4 %; Mean Corpuscular HGB Conc 32.5 g/dL (30-55); Mean Corpuscular Hemoglobin 31.7 pg (27-33); Mean Corpuscular Volume 97.6 fl (82-101); Monocytes # 0.6 10^3/uL (0.2-0.9); Monocytes % 8.2 %; Neutrophils # 5.29 10^3/uL (1.8-7.7); Nucleated Red Blood Cells % 0 %; Platelet Count 139 10^3/cmm (157-399); Red Blood Count 3.78 10^6/uL (3.85-5.65); Red Cell Distribution Width 12.2 % (12.1-15.1); White Blood Count 6.87 10^3/uL (3.29-11.43)
[2025-01-14 05:05] LABS: Alanine Aminotransferase 11 U/L (0-41); Albumin Level 3.1 g/dL (3.5-5.2); Alkaline Phosphatase 81 U/L (40-130); Anion Gap 13.1 (5-19); Aspartate Amino Transferase 21 U/L (0-40); Blood Urea Nitrogen 19 mg/dL (8-23); Calcium 8.6 mg/dL (8.5-10.5); Carbon Dioxide 26 mmol/L (22-29); Chloride 102 mmol/L (98-107); Creatinine Clr Calc Pharmacy 92.0012; Globulin 3.2 g/dL (1.3-4.6); Glucose 177 mg/dL (65-115); Osmolality Calculated 291 mOsm/kg (285-295); Potassium 4.1 mmol/L (3.5-5.1); Sodium 137 mmol/L (136-145); Total Bilirubin 0.7 mg/dL (0.15-1.2); Total Protein 6.3 g/dL (6.6-8.7)
[2025-01-14 06:33] LABS: Glucose Point of Care 172 mg/dL (70-110)
[2025-01-14] MEDS: insulin lispro 100 unit/1 mL SUBCUT ×4 (09:08→20:55)
[2025-01-14] MEDS: tamsulosin 0.4 mg Capsule PO (09:09)
[2025-01-14] MEDS: iron polysaccharide complex 150 mg Capsule PO ×2 (09:09→16:57)
[2025-01-14] MEDS: calcium carbonate 500 mg Chew Tablet 1000 MG PO ×2 (09:09→16:56)
[2025-01-14] MEDS: multivitamin therapeutic Tablet 1 TAB PO (09:09)
[2025-01-14] MEDS: sennosides-docusate Tablet 2 TAB PO ×2 (09:10→16:56)
[2025-01-14] MEDS: pantoprazole DR 40 mg Tablet PO (09:10)
[2025-01-14] MEDS: cholecalciferol (vitamin D3) 1,000 unit Tablet 1000 UNIT PO (09:10)
[2025-01-14] MEDS: clopidogrel 75 mg Tablet PO (09:10)
[2025-01-14] MEDS: chlorhexidine gluconate 0.12% Btl 473 mL 30 ML MUCOUS MEM ×3 (09:12→16:56)
[2025-01-14] MEDS: mupirocin oint 22 gm 1 APPLIC NASAL ×2 (09:13→16:59)
[2025-01-14 11:26] LABS: Glucose Point of Care 247 mg/dL (70-110)
--- NOTE | 2025-01-14 11:46 | P.PN_ITS ---
Subjective 2 Subjective: Patient resting in bed. He states his pain is improving. Ambulation is also improving at this time by his report. Medications: Reviewed: Yes Vitals/I&O/Wt Last Vital Signs Temp 98.3 F 01/14/25 08:00 Pulse 78 01/14/25 08:00 Resp 15 01/14/25 08:00 BP 107/53 01/14/25 08:00 Pulse Ox 95 01/14/25 08:00 O2 Del Method Room Air 01/14/25 08:00 01/13/25 01/14/25 01/14/25 22:59 07:59 14:59 Intake Total 360 / 600 240 / 240 Output Total 900 / 900 350 / 1250 Balance -540 / -300 -350 / -650 240 / 240 Weight last 48 hrs Weight 172 lb 14.4 oz Weight 170 lb Physical Exam 2 Narrative: On exam today he has a clean dressing on his surgical incision otherwise appears to be neurovascular intact, back to presurgical status. Urinary Catheter Management: Tee: Cath Placed During This Visit: yes Reason for Continuing Indwelling Catheter: Acute Urinary Retention or Obstruction Urinary Catheter Date of Insertion: 01/12/25 Urinary Catheter Time of Insertion: 17:59 Data 01/14/25 04:13 01/14/25 04:13 A&P Assessment and plan (1) Status post fracture of left hip: Patient is status post endoprosthetic replacement left hip secondary to fracture. He is doing quite well. Progressing well with physical therapy Plan Plan at this time is to continue on with the therapies and retraining patient to ambulate with a new hip. Continue on pain control. Making arrangements for discharge soon PDMP PDMP Reviewed: Not Reviewed Attestations 2 Medical Necessity Statement*: Status post surgery for fracture. Still in need of pain control, formal physical therapy, and assistance with ADLs Coding Level of Care Code 17266 Diagnoses Status post fracture of left hip Z87.81
[2025-01-14] MEDS: oxyCODONE-APAP 5-325 mg Tablet 1 TAB PO (12:15)
[2025-01-14 16:37] LABS: Glucose Point of Care 191 mg/dL (70-110)
[2025-01-14] MEDS: atorvastatin 40 mg Tablet 20 MG PO (16:57)
--- NOTE | 2025-01-14 17:48 | PM.PN ---
Subjective Subjective: Pain is better controlled today. Patient states his mobility slightly getting better though. He was able to get in and out of bed today with assistance. Medications: Reviewed: Yes Vitals/I&O/Wt Last Vital Signs Temp 98.6 F 01/14/25 12:00 Pulse 88 01/14/25 12:00 Resp 17 01/14/25 12:15 BP 94/61 01/14/25 12:00 Pulse Ox 93 01/14/25 12:00 O2 Del Method Room Air 01/14/25 12:00 01/14/25 01/14/25 01/14/25 07:59 14:59 22:59 Intake Total 480 / 480 Output Total 350 / 1250 Balance -350 / -650 480 / 480 Weight last 48 hrs Weight 78.426 kg Weight 77.111 kg Physical Exam Narrative: General: No acute distress, AO x3 HEENT: PERRLA, pupils bilaterally equal and reactive, pallors not present Chest: Normal vesicular breath sounds, no added sounds, equal good air entry bilaterally CVS: S1-S2 regular, no murmurs, no tachycardia, no gallops, no rubs Abdomen: Soft, nontender, no organomegaly, bowel sounds present Urinary Catheter Management: Luna: Cath Placed During This Visit: yes Reason for Continuing Indwelling Catheter: Acute Urinary Retention or Obstruction Urinary Catheter Date of Insertion: 01/12/25 Urinary Catheter Time of Insertion: 17:59 Data 01/14/25 04:13 01/14/25 04:13 A&P Assessment and plan (1) Closed fracture of left hip: left hip fracture after mechanical fall no distal neurovascular deficit at this time orthopedic surgery has been consulted from the ER Patient chronically on eliquis due to h/o PAD, will hold Eliquis Last dose taken this morning Additionally hold Plavix for now while epnding fracture repair NPO post midnight as anticipate surgical fixation prn morphine and hydrocodone/APAP for pain management. Continue hoem dose of gabapentin Qualifiers: Encounter type: initial encounter Qualified Code(s): S72.002A - Fracture of unspecified part of neck of left femur, initial encounter for closed fracture (2) Type 2 diabetes mellitus: insulin sliding scale Qualifiers: Diabetes mellitus long term care pharmacist insulin use: without long term care pharmacist use Diabetes mellitus complication status: with skin complications Diabetes mellitus complication detail: with foot ulcer Qualified Code(s): E11.621 - Type 2 diabetes mellitus with foot ulcer; L97.509 - Non-pressure chronic ulcer of other part of unspecified foot with unspecified severity (3) COPD (chronic obstructive pulmonary disease): not currently exacerbated prn albuterol Plan c/o urinary retention, states he has not voided since this morning Bladder scan and luna placement continue flomax DVT ppx: Scd for now, to resume eliquis post operatievly Full code January 09, 2025 Pain is uncontrolled. States he is having spasms over his left lower extremity. Added Flexeril 5 mg 3 times daily as needed. Likely he will have consistent relief once fracture has been surgically reduced. Patient is off Plavix and Eliquis currently. Planned surgery is on , January 11, 2025. January 10, 2025 Continues to have uncontrolled pain. Will increase morphine to 4 mg IV every 4 hours as needed. Continue hydrocodone APAP orally 03/10/2025 every 4 as needed. Additionally add Toradol 15 mg IV every 8 hours as needed for pain management. Off Eliquis and Plavix. Anticipated surgical procedure tomorrow for ORIF. Discontinue IV fluids. He has been tolerating oral intake well. Urine output over 5000 cc. Once he is n.p.o. at midnight, will resume IV fluids. January 11, 2025 Plan for surgical intervention today. No acute overnight events. Blood pressure has been ranging between 1 50-1 70 systolic. Will add amlodipine 5 mg p.o. daily and as needed hydralazine 10 mg IV every 4 hours for SBP greater than 160.Will resume Eliquis and Plavix post op when cleared by orthopedics January 12, 2025 Patient is status post surgical intervention yesterday. Complaining of pain. Dose of opiates had been cut back today after nursing report of patient being confused. At the time of this assessment he is alert awake and oriented. He has trouble remembering the names of people that have been visiting him. His visitors at bedside today state that patient has had memory disturbances for the past many months and do not feel that he is too far away from his baseline. Will optimize pain management with IV Tylenol, IV Toradol, Hydromorphone 0.5 mg every 6 hours as needed. Continue oxycodone/APAP 5-325 mg every 6 hrs prn . resume Plavix 75mg po daily. Upon admission patient had stated he is on Eliquis 2.5 mg twice daily, however in reviewing his MAR and prior clinic notes I am unable to find where he was prescribed Eliquis in the past. Will start DVT prophylaxis with Lovenox 40 mg daily until it can be confirmed that patient was indeed on Eliquis. Encourage participation with PT. January 13, 2025 His pain is much better controlled today. His mental status is improved, he is much more alert and awake today. He has some baseline memory impairment but accounts by family at bedside. He appears to be close to his baseline mentation currently. Will resume gabapentin. Luna catheter was attempted to be removed yesterday, however resulted in urinary retention and needed to be replaced. At the time of this assessment patient is not moving his left leg. He is mainly using his right leg to pivot and transfer. He is examined while sitting in chair currently, he is not flexing at the knee or at the hip. Unable to hold the leg up when passively attempted to be grossly flexed at the knee. 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 Extensively reviewed outpatient notes going back to 2021. On a recent podiatry visit he was noted to have weak dorsiflexion at the ankle. Dating back to 2021, review of orthopedic notes show that he had range of motion at the knee though somewhat limited due to left knee replacement. Patient insists that he was able to move his legs at the knee and able to hold it up against gravity prior to this current admission. He has been unable to move that leg since admission, previously attributed to the fracture. Possible that he may need some therapy going forward to improve his left extremity strength, however with concomitant urinary retention concern for potential lumbar injury and nerve compression that may have been precipitated by his fall. Will perform CT of the lumbar spine. Additionally obtain CT head and CTA of the head and neck to evaluate for any new strokes while patient remained off his antiplatelets. I am uncertain of the reliability of patient's history and assessment of his left leg function given reported accounts of memory impairment. He has previously stated he was on Eliquis however this was no longer found on his MAR or any of his outpatient records. Increase sliding scale to high dose awaiting dispsoition planning continued therapy to be beneficial January 14, 2025. States pain is better controlled today. Mental status remains good. He is alert and awake. Has memory impairments however they are at baseline.CTA of the head and neck was completed yesterday as patient was noted not to be moving his left lower extremity at all. This showed absent flow within the right intracranial carotid artery with reconstitution of the right CLARICE and MCA via the anterior communicating artery. Likely a chronic finding with the presence of chronic right parietal lobe infarction which is also noted. No acute changes are encountered. 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 No new stroke. Lumbar spine CT without any signs for cauda equina syndrome. Or any other injuries. Overall patient is clinically improving and optimized postsurgically. Awaiting appropriate disposition planning. Patient is planned to discharge to [facility] facility for continued rehab postdischarge, awaiting updates on Wednesday. PDMP PDMP Reviewed: Not Reviewed Attestations Medical Necessity Statement*: continued rehab, disposition planning Coding Level of Care Code Acute Code for [facility] Fwd Diagnoses Closed fracture of left hip, initial encounter S72.002A Encounter type: initial encounter Type 2 diabetes mellitus with foot ulcer, without long-term current use of insulin E11.621; L97.509 Diabetes mellitus long term care pharmacist insulin use: without senior living use Diabetes mellitus complication status: with skin complications Diabetes mellitus complication detail: with foot ulcer COPD (chronic obstructive pulmonary disease) J44.9
[2025-01-14] MEDS: enoxaparin 40 mg/0.4 mL Syringe SUBCUT (17:59)
[2025-01-14 20:34] LABS: Glucose Point of Care 286 mg/dL (70-110)
[2025-01-14] MEDS: ketorolac 30 mg/mL INJ 15 MG IVP (21:03)
[2025-01-15] VITALS (10 sets, daily range): BP systolic 99–109; BP diastolic 59–67; PULSE 68–94; RESP 16–18; TEMP 36.7–37.2; O2SAT 93–97
[2025-01-15 06:23] LABS: Glucose Point of Care 182 mg/dL (70-110)
[2025-01-15] MEDS: sennosides-docusate Tablet 2 TAB PO ×2 (09:06→18:08)
[2025-01-15] MEDS: pantoprazole DR 40 mg Tablet PO (09:07)
[2025-01-15] MEDS: calcium carbonate 500 mg Chew Tablet 1000 MG PO ×2 (09:07→18:08)
[2025-01-15] MEDS: nicotine 14 mg Patch 1 PATCH TRANSDERMA (09:07)
[2025-01-15] MEDS: iron polysaccharide complex 150 mg Capsule PO ×2 (09:07→18:07)
[2025-01-15] MEDS: cholecalciferol (vitamin D3) 1,000 unit Tablet 1000 UNIT PO (09:07)
[2025-01-15] MEDS: tamsulosin 0.4 mg Capsule PO (09:07)
[2025-01-15] MEDS: clopidogrel 75 mg Tablet PO (09:07)
[2025-01-15] MEDS: multivitamin therapeutic Tablet 1 TAB PO (09:07)
[2025-01-15] MEDS: mupirocin oint 22 gm 1 APPLIC NASAL ×2 (09:09→18:08)
[2025-01-15] MEDS: insulin lispro 100 unit/1 mL SUBCUT ×4 (09:09→21:22)
[2025-01-15] MEDS: chlorhexidine gluconate 0.12% Btl 473 mL 30 ML MUCOUS MEM ×3 (09:09→18:06)
[2025-01-15 11:03] LABS: Glucose Point of Care 201 mg/dL (70-110)
--- NOTE | 2025-01-15 13:06 | P.PN_ITS ---
Subjective 2 Subjective: Seen this morning. No acute events overnight. Patient awaiting half-way placement. He is no longer lethargic. Awake alert oriented sitting up in chair following commands. Vitals/I&O/Wt Last Vital Signs Temp 98.2 F 01/15/25 11:11 Pulse 81 01/15/25 11:11 Resp 18 01/15/25 11:11 BP 107/61 01/15/25 11:11 Pulse Ox 97 01/15/25 11:11 O2 Del Method Room Air 01/15/25 11:11 01/14/25 01/15/25 01/15/25 22:59 06:59 14:59 Intake Total 240 / 720 240 / 240 Output Total 700 / 700 525 / 1225 Balance -460 / 20 -525 / -505 240 / 240 Weight last 48 hrs Weight 79.197 kg Weight 78.426 kg Physical Exam 2 Narrative: General: No acute distress, AO x3, sitting up in chair HEENT: PERRLA, pupils bilaterally equal and reactive, pallors not present Chest: Normal vesicular breath sounds, no added sounds, equal good air entry bilaterally CVS: S1-S2 regular, no murmurs, no tachycardia, no gallops, no rubs Abdomen: Soft, nontender, bowel sounds present Urinary Catheter Management: Luna: Cath Placed During This Visit: yes Reason for Continuing Indwelling Catheter: Acute Urinary Retention or Obstruction Urinary Catheter Date of Insertion: 01/12/25 Urinary Catheter Time of Insertion: 17:59 Data 01/14/25 04:13 01/14/25 04:13 A&P Assessment and plan (1) Closed fracture of left hip: left hip fracture after mechanical fall no distal neurovascular deficit at this time orthopedic surgery has been consulted from the ER Patient chronically on eliquis due to h/o PAD, will hold Eliquis Last dose taken this morning Additionally hold Plavix for now while epnding fracture repair NPO post midnight as anticipate surgical fixation prn morphine and hydrocodone/APAP for pain management. Continue hoem dose of gabapentin Qualifiers: Encounter type: initial encounter Qualified Code(s): S72.002A - Fracture of unspecified part of neck of left femur, initial encounter for closed fracture (2) Type 2 diabetes mellitus: insulin sliding scale Qualifiers: Diabetes mellitus penitentiary insulin use: without penitentiary use Diabetes mellitus complication status: with skin complications Diabetes mellitus complication detail: with foot ulcer Qualified Code(s): E11.621 - Type 2 diabetes mellitus with foot ulcer; L97.509 - Non-pressure chronic ulcer of other part of unspecified foot with unspecified severity (3) COPD (chronic obstructive pulmonary disease): not currently exacerbated prn albuterol Plan c/o urinary retention, states he has not voided since this morning Bladder scan and luna placement continue flomax DVT ppx: Scd for now, to resume eliquis post operatievly Full code January 09, 2025 Pain is uncontrolled. States he is having spasms over his left lower extremity. Added Flexeril 5 mg 3 times daily as needed. Likely he will have consistent relief once fracture has been surgically reduced. Patient is off Plavix and Eliquis currently. Planned surgery is on , January 11, 2025. January 10, 2025 Continues to have uncontrolled pain. Will increase morphine to 4 mg IV every 4 hours as needed. Continue hydrocodone APAP orally 03/10/2025 every 4 as needed. Additionally add Toradol 15 mg IV every 8 hours as needed for pain management. Off Eliquis and Plavix. Anticipated surgical procedure tomorrow for ORIF. Discontinue IV fluids. He has been tolerating oral intake well. Urine output over 5000 cc. Once he is n.p.o. at midnight, will resume IV fluids. January 11, 2025 Plan for surgical intervention today. No acute overnight events. Blood pressure has been ranging between 1 50-1 70 systolic. Will add amlodipine 5 mg p.o. daily and as needed hydralazine 10 mg IV every 4 hours for SBP greater than 160.Will resume Eliquis and Plavix post op when cleared by orthopedics January 12, 2025 Patient is status post surgical intervention yesterday. Complaining of pain. Dose of opiates had been cut back today after nursing report of patient being confused. At the time of this assessment he is alert awake and oriented. He has trouble remembering the names of people that have been visiting him. His visitors at bedside today state that patient has had memory disturbances for the past many months and do not feel that he is too far away from his baseline. Will optimize pain management with IV Tylenol, IV Toradol, Hydromorphone 0.5 mg every 6 hours as needed. Continue oxycodone/APAP 5-325 mg every 6 hrs prn . resume Plavix 75mg po daily. Upon admission patient had stated he is on Eliquis 2.5 mg twice daily, however in reviewing his MAR and prior clinic notes I am unable to find where he was prescribed Eliquis in the past. Will start DVT prophylaxis with Lovenox 40 mg daily until it can be confirmed that patient was indeed on Eliquis. Encourage participation with PT. January 13, 2025 His pain is much better controlled today. His mental status is improved, he is much more alert and awake today. He has some baseline memory impairment but accounts by family at bedside. He appears to be close to his baseline mentation currently. Will resume gabapentin. Luna catheter was attempted to be removed yesterday, however resulted in urinary retention and needed to be replaced. At the time of this assessment patient is not moving his left leg. He is mainly using his right leg to pivot and transfer. He is examined while sitting in chair currently, he is not flexing at the knee or at the hip. Unable to hold the leg up when passively attempted to be grossly flexed at the knee. 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 Extensively reviewed outpatient notes going back to 2021. On a recent podiatry visit he was noted to have weak dorsiflexion at the ankle. Dating back to 2021, review of orthopedic notes show that he had range of motion at the knee though somewhat limited due to left knee replacement. Patient insists that he was able to move his legs at the knee and able to hold it up against gravity prior to this current admission. He has been unable to move that leg since admission, previously attributed to the fracture. Possible that he may need some therapy going forward to improve his left extremity strength, however with concomitant urinary retention concern for potential lumbar injury and nerve compression that may have been precipitated by his fall. Will perform CT of the lumbar spine. Additionally obtain CT head and CTA of the head and neck to evaluate for any new strokes while patient remained off his antiplatelets. I am uncertain of the reliability of patient's history and assessment of his left leg function given reported accounts of memory impairment. He has previously stated he was on Eliquis however this was no longer found on his MAR or any of his outpatient records. Increase sliding scale to high dose awaiting dispsoition planning continued therapy to be beneficial January 14, 2025. States pain is better controlled today. Mental status remains good. He is alert and awake. Has memory impairments however they are at baseline.CTA of the head and neck was completed yesterday as patient was noted not to be moving his left lower extremity at all. This showed absent flow within the right intracranial carotid artery with reconstitution of the right CLARICE and MCA via the anterior communicating artery. Likely a chronic finding with the presence of chronic right parietal lobe infarction which is also noted. No acute changes are encountered. 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 No new stroke. Lumbar spine CT without any signs for cauda equina syndrome. Or any other injuries. Overall patient is clinically improving and optimized postsurgically. Awaiting appropriate disposition planning. Patient is planned to discharge to care home facility for continued rehab postdischarge, awaiting updates on Wednesday. 01/15/2025 Patient awake alert oriented sitting up in chair. Feeling better today. No new stroke as noted by previous physician. Patient is optimized and awaiting discharge planning at this time. Patient awaiting safe discharge planning. Will recheck labs in AM. 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
[2025-01-15 16:56] LABS: Glucose Point of Care 259 mg/dL (70-110)
[2025-01-15] MEDS: enoxaparin 40 mg/0.4 mL Syringe SUBCUT (18:07)
[2025-01-15] MEDS: atorvastatin 40 mg Tablet 20 MG PO (18:08)
[2025-01-15] MEDS: acetaminophen 325 mg Tablet 650 MG PO (18:14)
[2025-01-15 20:32] LABS: Glucose Point of Care 182 mg/dL (70-110)
[2025-01-16 03:48] VITALS: BP 107/70; PULSE 72; RESP 18; TEMP 36.8; O2SAT 95
[2025-01-16 05:31] LABS: Basophils % 0.5 %; Eosinophils # 0.2 10^3/uL (0.0-0.8); Eosinophils % 3.9 %; Hematocrit 37.7 % (37-53); Lymphocytes # 0.8 10^3/uL (0.8-4.8); Lymphocytes % 14.1 %; Mean Corpuscular HGB Conc 32.9 g/dL (30-55); Mean Corpuscular Hemoglobin 31.1 pg (27-33); Mean Corpuscular Volume 94.5 fl (82-101); Mean Platelet Volume 10.4 fL (7.4-10.4); Monocytes # 0.5 10^3/uL (0.2-0.9); Monocytes % 8.2 %; Neutrophils # 4.06 10^3/uL (1.8-7.7); Neutrophils % 72.8 %; Nucleated Red Blood Cells % 0 %; Platelet Count 175 10^3/cmm (157-399); Red Blood Count 3.99 10^6/uL (3.85-5.65); White Blood Count 5.59 10^3/uL (3.29-11.43)
[2025-01-16 06:03] VITALS: PULSE 76
[2025-01-16 06:13] LABS: Anion Gap 13.2 (5-19); Blood Urea Nitrogen 12 mg/dL (8-23); Carbon Dioxide 26 mmol/L (22-29); Chloride 104 mmol/L (98-107); Potassium 4.2 mmol/L (3.5-5.1); Sodium 139 mmol/L (136-145)
[2025-01-16 06:14] LABS: Calcium 8.6 mg/dL (8.5-10.5); Glucose 167 mg/dL (65-115); Osmolality Calculated 292 mOsm/kg (285-295)
[2025-01-16 06:33] LABS: Glucose Point of Care 184 mg/dL (70-110)
[2025-01-16 08:00] VITALS: BP 103/66; PULSE 82; RESP 17; TEMP 36.9; O2SAT 95
[2025-01-16] MEDS: acetaminophen 325 mg Tablet 650 MG PO (08:21)
[2025-01-16] MEDS: calcium carbonate 500 mg Chew Tablet 1000 MG PO (08:21)
[2025-01-16] MEDS: clopidogrel 75 mg Tablet PO (08:21)
[2025-01-16] MEDS: pantoprazole DR 40 mg Tablet PO (08:21)
[2025-01-16] MEDS: cholecalciferol (vitamin D3) 1,000 unit Tablet 1000 UNIT PO (08:21)
[2025-01-16] MEDS: iron polysaccharide complex 150 mg Capsule PO (08:21)
[2025-01-16] MEDS: sennosides-docusate Tablet 2 TAB PO (08:22)
[2025-01-16] MEDS: tamsulosin 0.4 mg Capsule PO (08:22)
[2025-01-16] MEDS: nicotine 14 mg Patch 1 PATCH TRANSDERMA (08:22)
[2025-01-16] MEDS: chlorhexidine gluconate 0.12% Btl 473 mL 30 ML MUCOUS MEM ×2 (08:22→12:24)
[2025-01-16] MEDS: multivitamin therapeutic Tablet 1 TAB PO (08:22)
[2025-01-16] MEDS: mupirocin oint 22 gm 1 APPLIC NASAL (08:22)
[2025-01-16] MEDS: insulin lispro 100 unit/1 mL SUBCUT ×2 (08:23→12:23)
--- NOTE | 2025-01-16 10:30 | PM.DCS ---
Discharge Providers Date of Admission: 01/08/25 15:58 Date of Discharge: January 16, 2025 Attending Provider at Admission: Corrina Espinosa MD Attending Provider at Discharge: Ulisses Beckman MD Consults: Orthopedic surgery Primary Care Provider: JUDITH Kamara Diagnoses at Discharge Discharge Diagnosis (1) Closed fracture of left hip: Status: Acute Qualifiers: Encounter type: initial encounter Qualified Code(s): S72.002A - Fracture of unspecified part of neck of left femur, initial encounter for closed fracture (2) Type 2 diabetes mellitus: Status: Chronic Qualifiers: Diabetes mellitus senior care insulin use: without senior care use Diabetes mellitus complication status: with skin complications Diabetes mellitus complication detail: with foot ulcer Qualified Code(s): E11.621 - Type 2 diabetes mellitus with foot ulcer; L97.509 - Non-pressure chronic ulcer of other part of unspecified foot with unspecified severity (3) COPD (chronic obstructive pulmonary disease): Status: Chronic Reason for Visit Reason for Visit: fall, L hip pain Hospital Course Hospital Course Mariaelena Treviño is a 70-year-old male with a past medical history significant for type 2 diabetes mellitus, peripheral neuropathy, peripheral arterial disease, COPD, and tobacco use who presented with mechanical fall resulting in displaced intertrochanteric fracture of left hip. Orthopedic surgery consulted and he underwent endoprosthetic replacement of the left hip fracture. Surgery was initially delayed due to concern for patient being on anticoagulation and antiplatelet prior to admission. His postop course was complicated by weakness for which stroke was considered with imaging negative for acute stroke findings. Patient's debility and weakness did improve as he worked with therapy services. He was found to have urinary retention twice during his hospitalization for which Tee catheter was ultimately placed. He is to continue with his Flomax and should have a voiding trial after he is more ambulatory. If he fails again, recommend referral to urology care. Overall, patient improved. He is being discharged residential facility for ongoing rehabilitation. Physical Exam Narrative: General: Patient is awake and alert. Head: Normocephalic. Atraumatic. EOM intact. Neck: No JVD. Cardiovascular: RRR. No gallops. No murmurs. Lungs: Clear to auscultation, no use of accessory muscles, no crackles or wheezes. Skin: No jaundice. No rashes. Abdomen: Normal bowel sounds, abdomen soft and nontender. Genito Urinary: Tee catheter Extremities: No cyanosis or clubbing. Musculoskeletal: No swollen or erythematous joints. Neurological: Moves all 4 extremities. No myoclonus. Urinary Catheter Management: Tee: Cath Placed During This Visit: yes Reason for Continuing Indwelling Catheter: Acute Urinary Retention or Obstruction Urinary Catheter Date of Insertion: 01/12/25 Urinary Catheter Time of Insertion: 17:59 Discharge Data Studies Completed and Pending Completed Studies During Hospitalization Category Date Time Status CT hip LT wo con* [id number] Routine Cat Scan 01/09/25 12:[address] lumbar spine w con [id number] Routine Cat Scan 01/13/25 16:02 Completed CTA head neck [CT angio headneck* [id number]] Routine Cat Scan 01/13/25 16:02 Completed XR chest 1V portable [id number] Stat Exams 01/08/25 15:45 Completed XR femur LT min 2V* [id number] Stat Exams 01/08/25 14:38 Completed XR hip LT 2-3V wo/w pel* [id number] Stat Exams 01/08/25 14:35 Completed XR pelvis 1-2V* [id number] Routine Exams 01/11/25 14:01 Completed Radiology Impressions Hip/Pelvis X-Ray 01/08/25 14:35 IMPRESSION: Left hip fracture as above. Femur X-Ray 01/08/25 14:38 IMPRESSION: Intertrochanteric fracture with the remainder of the femur intact. Chest X-Ray 01/08/25 15:45 IMPRESSION: Stable chest without acute abnormality. Hip CT 01/09/25 12:10 IMPRESSION: Acute left proximal femur fracture. Recommend orthopedic evaluation. Pelvis X-Ray 01/11/25 14:01 IMPRESSION: No acute findings. No evidence hardware complication. Head/Neck CTA 01/13/25 16:02 IMPRESSION: 1. Chronic right parietal lobe infarction. 2. Absent flow within the right intracranial carotid artery with reconstitution of the right CLARICE and MCA via the A-comm. This is likely a chronic finding in view of the presence of chronic right parietal lobe infarction. 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 This is likely a chronic finding. REFERENCES: NASCET CRITERIA. The degree of stenosis in the cervical segment of the internal carotid artery is based on NASCET criteria. Normal is no stenosis. Mild is less than 50% stenosis. Moderate is 50-69% stenosis. Severe is 70% to 99% stenosis. Total occlusion is no detectable patent lumen. Lumbar Spine CT 01/13/25 16:02 IMPRESSION: No acute findings. Multilevel degenerative changes involving the lumbar spine as detailed above. Findings are most severe involving the lower lumbar spine. Laboratory Results WBC 5.59 10^3/uL (3.29-11.43) 01/16/25 05:00 RBC 3.99 10^6/uL (3.85-5.65) 01/16/25 05:00 Hgb 12.40 g/dL (11.27-16.99) 01/16/25 05:00 Hct 37.7 % (37-53) 01/16/25 05:00 MCV 94.5 fl (82-101) 01/16/25 05:00 MCH 31.1 pg (27-33) 01/16/25 05:00 MCHC 32.9 g/dL (30-55) 01/16/25 05:00 RDW 12.0 % (12.1-15.1) L 01/16/25 05:00 Plt Count 175 10^3/cmm (157-399) 01/16/25 05:00 MPV 10.4 fL (7.4-10.4) 01/16/25 05:00 Neut % (Auto) 72.8 % 01/16/25 05:00 Lymph % (Auto) 14.1 % 01/16/25 05:00 [place] % (Auto) 8.2 % 01/16/25 05:00 Eos % (Auto) 3.9 % 01/16/25 05:00 Baso % (Auto) 0.5 % 01/16/25 05:00 Neut # (Auto) 4.06 10^3/uL (1.8-7.7) 01/16/25 05:00 Lymph # (Auto) 0.8 10^3/uL (0.8-4.8) 01/16/25 05:00 [place] # (Auto) 0.5 10^3/uL (0.2-0.9) 01/16/25 05:00 Eos # (Auto) 0.2 10^3/uL (0.0-0.8) 01/16/25 05:00 Baso # (Auto) 0.0 10^3/uL (0.0-0.1) 01/16/25 05:00 Nucleated RBC % (auto) 0 % 01/16/25 05:00 Nucleated RBCs # 0.0 /100WBC 01/16/25 05:00 PT 12.90 SECONDS (12.1-14.9) 01/08/25 16:23 INR 0.91 (0.8-1.2) 01/08/25 16:23 Sodium 139 mmol/L (136-145) 01/16/25 05:00 Potassium 4.2 mmol/L (3.5-5.1) 01/16/25 05:00 Chloride 104 mmol/L (98-107) 01/16/25 05:00 Carbon Dioxide 26 mmol/L (22-29) 01/16/25 05:00 Anion Gap 13.2 (5-19) 01/16/25 05:00 BUN 12 mg/dL (8-23) 01/16/25 05:00 Creatinine 0.6 mg/dL (0.7-1.2) L 01/16/25 05:00 GFR Calculation Not Reportable 01/16/25 05:00 Glucose 167 mg/dL (65-115) H 01/16/25 05:00 POC Glucose 184 mg/dL (70-110) H 01/16/25 06:18 Calculated Osmolality 292 mOsm/kg (285-295) 01/16/25 05:00 Calcium 8.6 mg/dL (8.5-10.5) 01/16/25 05:00 Magnesium 2.0 mg/dL (1.7-2.3) 01/16/25 05:00 Total Bilirubin 0.7 mg/dL (0.15-1.2) 01/14/25 04:13 AST 21 U/L (0-40) 01/14/25 04:13 ALT 11 U/L (0-41) 01/14/25 04:13 Alkaline Phosphatase 81 U/L (40-130) 01/14/25 04:13 Total Protein 6.3 g/dL (6.6-8.7) L 01/14/25 04:13 Albumin 3.1 g/dL (3.5-5.2) L 01/14/25 04:13 Globulin 3.2 g/dL (1.3-4.6) 01/14/25 04:13 Procedures Performed Endoprosthetic replacement left hip for fracture Vitals Last Vital Signs Temp 98.4 F 01/16/25 08:00 Pulse 82 01/16/25 08:00 Resp 17 01/16/25 08:00 BP 103/66 01/16/25 08:00 Pulse Ox 95 01/16/25 08:00 O2 Del Method Room Air 01/16/25 08:00 Discharge Plan Discharge Patient Disposition: Xfer SNF Condition: Stable Prescriptions: New cholecalciferol (vitamin D3) 25 mcg (1,000 unit) Tablet 1,000 unit PO DAILY 30 Days Qty: 30 0RF calcium carbonate 200 mg calcium (500 mg) Tablet,Chewable 1,000 mg PO BID 30 Days Qty: 300 0RF sennosides-docusate sodium [Stool Softener-Laxative] 8.6-50 mg Tablet 2 tab PO BID 30 Days Qty: 120 0RF Continued gabapentin 400 mg capsule 400 mg PO TID 30 Days Qty: 90 1RF hydrocodone-acetaminophen 10-325 mg tablet 1 tab PO Q8H PRN (Reason: Pain) Trulicity 1.5 mg/0.5 mL pen injector 1.5 mg SUBCUT .weekly 30 Days Qty: 2 1RF Rx Instructions: Fridays nicotine 14 mg/24 hr patch 24 hour 1 patch transdermal DAILY Qty: 28 1RF cephalexin 500 mg capsule 500 mg PO BID 10 Days Qty: 20 0RF (DME) lancets Misc See Rx Instructions .Route Qty: 200 2RF Rx Instructions: USE TO CHECK BLOOD SUGAR DAILY. (DME) blood sugar diagnostic Strip See Rx Instructions .Route Qty: 100 2RF Rx Instructions: USE TO CHECK BLOOD SUGAR DAILY. clopidogrel 75 mg tablet 75 mg PO DAILY Qty: 90 2RF atorvastatin 20 mg tablet 20 mg PO QPM ketoconazole 2 % shampoo 1 applic topical .twice a week PRN (Reason: scalp irritation) tamsulosin 0.4 mg capsule 0.4 mg PO DAILY metformin 1,000 mg tablet 1,000 mg PO BID mupirocin 2 % ointment 1 applic topical TID PRN (Reason: skin irriyation) Discharge Orders: Discharge Order (Routine); Ordered 01/16/25 Ordered By: Ulisses Beckman Referrals: ABNER Carson, [facility] [Primary Care Provider] - Ermias Christian MD [Physician] - Discharge Diet: Advance as tolerated and Usual diet Discharge Activity: Increase activity as tolerated and Limit activity as instructed Patient Instructions: Acute Wound Care (DC), Post Anesthesia Care Activity Restrictions/Additional Instructions: Take medications as prescribed. Continue physical therapy. Monitor bowel movements and monitor for evidence of constipation. Establish care with provider at facility within 7 days of arrival. Recommend consideration of voiding trial in approximately 2 weeks after patient's more ambulatory. If he fails voiding trial again, would refer to urology for further evaluation. Discharge Attestations Time Spent in Discharge Care*: greater than 30 min Quality Metrics Clinical Quality Measures [ No reported AMI, CVA or VTE this stay] Coding Level of Care Code Acute Code for Chg Fwd Diagnoses Closed fracture of left hip, initial encounter S72.002A Encounter type: initial encounter Type 2 diabetes mellitus with foot ulcer, without long-term current use of insulin E11.621; L97.509 Diabetes mellitus roasterman insulin use: without roasterman use Diabetes mellitus complication status: with skin complications Diabetes mellitus complication detail: with foot ulcer COPD (chronic obstructive pulmonary disease) J44.9
[2025-01-16 11:26] LABS: Glucose Point of Care 305 mg/dL (70-110)
[2025-01-16 11:40] VITALS: BP 104/68; PULSE 101; RESP 17; TEMP 36.6; O2SAT 97
--- NOTE | 2025-01-16 13:31 | PC.NURSE ---
Addendum entered by Liyah Hankins LPN 01/16/25 13:38: KIKA Pena from [facility] returned my call at [phone]. Report was given. Facility is currently on their way to transport pt to their facility. Original Note: This nurse attempted to call report on pt to [facility] at [phone]. Nurse (Jean) unavailable to take my call at this time but will call me back shortly per Crystal. Call back number given.
[2025-01-16 14:40] VITALS: BP 104/68; PULSE 100; O2SAT 97
== END 2025-01-16 14:44 | disposition skilled nursing facility (03) | DRG 522 ==
LOC: ER 22:22 → ER IP 01-09 03:50 → MEDSURG 01-09 08:43
PROVIDERS: Internal Medicine; Orthopaedic Surgery; Admitting Provider Student in an Organized Health Care Education/Training Program; Emergency Provider Emergency Medicine; PCP Nurse Practitioner Family; Visit Provider Internal Medicine
PROC: (CPT 27125; principal; 2025-01-11 12:00)
DX: S72.142A Displaced intertrochanteric fracture of left femur, initial encounter for closed fracture (principal); E11.621 Type 2 diabetes mellitus with foot ulcer; L97.509 Non-pressure chronic ulcer of other part of unspecified foot with unspecified severity; J44.9 Chronic obstructive pulmonary disease, unspecified; E11.42 Type 2 diabetes mellitus with diabetic polyneuropathy; R33.9 Retention of urine, unspecified; F17.210 Nicotine dependence, cigarettes, uncomplicated; I65.21 Occlusion and stenosis of right carotid artery; E11.51 Type 2 diabetes mellitus with diabetic peripheral angiopathy without gangrene; Z79.01 Long term (current) use of anticoagulants; Z79.02 Long term (current) use of antithrombotics/antiplatelets; Z79.899 Other long term (current) drug therapy; Z79.85 Long-term (current) use of injectable non-insulin antidiabetic drugs; Z79.84 Long term (current) use of oral hypoglycemic drugs; W01.0XXA Fall on same level from slipping, tripping and stumbling without subsequent striking against object, initial encounter; Y92.009 Unspecified place in unspecified non-institutional (private) residence as the place of occurrence of the external cause
CPT/HCPCS: 36415; 36416; 51702; 70496; 70498; 71045; 72132; 72170; 73502; 73552; 73700; 80048; 80053; 82962; 83735; 85025; 85610; 93005; 96360; 96361; 96372; 97110; 97116; 97162; 97165; 97530; 97535; 99285; C1776; C9290; J0131; J0690; J1100; J1171; J1650; J1815; J1885; J2270; J2371; J2405; J2704; J2710; J3010; J3490; J7030; J9999

== ENCOUNTER → 2025-01-29 08:01 | Outpatient (BNVA) | payer OTHER, SELFPAY | PROVIDERS: PCP Nurse Practitioner Family; Visit Provider Orthopaedic Surgery | DX: Z98.890 Other specified postprocedural states (principal); Z87.81 Personal history of (healed) traumatic fracture | CPT/HCPCS: 73502; 99024 ==

== ENCOUNTER → 2025-02-21 11:30 | Outpatient (BNVA) | payer MEDICARE, MEDICAID, SELFPAY | PROVIDERS: PCP Nurse Practitioner Family; Visit Provider Nurse Practitioner Family | DX: R32 Unspecified urinary incontinence (principal) | CPT/HCPCS: 81003 ==

== ENCOUNTER → 2025-03-15 08:48 | Outpatient (BNVA) | payer MEDICARE, MEDICAID, SELFPAY | PROVIDERS: PCP Nurse Practitioner Family; Visit Provider Thoracic Surgery (Cardiothoracic Vascular Surgery) | DX: I96 Gangrene, not elsewhere classified (principal); L97.322 Non-pressure chronic ulcer of left ankle with fat layer exposed | CPT/HCPCS: 11042; 99213 ==

== ENCOUNTER → 2025-03-22 07:59 | Outpatient (BNVA) | payer MEDICARE, MEDICAID, SELFPAY | PROVIDERS: PCP Nurse Practitioner Family; Visit Provider Thoracic Surgery (Cardiothoracic Vascular Surgery) | DX: E11.52 Type 2 diabetes mellitus with diabetic peripheral angiopathy with gangrene (principal); E11.621 Type 2 diabetes mellitus with foot ulcer; L97.325 Non-pressure chronic ulcer of left ankle with muscle involvement without evidence of necrosis | CPT/HCPCS: 11043 ==

== ENCOUNTER 2025-03-29 11:50 | Outpatient (CLI) | payer MEDICARE, MEDICAID, SELFPAY ==
[2025-03-29 12:57] LABS: Basophils % 0.8 %; Eosinophils # 0.2 10^3/uL (0.0-0.8); Eosinophils % 3.2 %; Hematocrit 46.9 % (37-53); Lymphocytes % 18.3 %; Mean Corpuscular HGB Conc 31.6 g/dL (30-55); Mean Corpuscular Hemoglobin 31.6 pg (27-33); Mean Corpuscular Volume 100.2 fl (82-101); Monocytes # 0.5 10^3/uL (0.2-0.9); Monocytes % 9.4 %; Neutrophils # 3.61 10^3/uL (1.8-7.7); Neutrophils % 67.9 %; Nucleated Red Blood Cells % 0 %; Platelet Count 197 10^3/cmm (157-399); Red Blood Count 4.68 10^6/uL (3.85-5.65); Red Cell Distribution Width 13.9 % (12.1-15.1); White Blood Count 5.31 10^3/uL (3.29-11.43)
[2025-03-29 13:09] LABS: Anion Gap 15.4 (5-19); Blood Urea Nitrogen 11 mg/dL (8-23); Calcium 9.4 mg/dL (8.5-10.5); Carbon Dioxide 28 mmol/L (22-29); Chloride 103 mmol/L (98-107); Glucose 137 mg/dL (65-115); Osmolality Calculated 296 mOsm/kg (285-295); Potassium 4.4 mmol/L (3.5-5.1); Sodium 142 mmol/L (136-145)
[2025-03-29 13:24] LABS: Prothrombin Time (Patient) 12.9 Seconds (12.0-15.1)
== END 2025-03-29 11:51 | disposition home or self-care (01) ==
PROVIDERS: PCP Nurse Practitioner Family; Visit Provider Internal Medicine
DX: S81.802S Unspecified open wound, left lower leg, sequela (principal); I10 Essential (primary) hypertension; R58 Hemorrhage, not elsewhere classified; X58.XXXS Exposure to other specified factors, sequela; E11.52 Type 2 diabetes mellitus with diabetic peripheral angiopathy with gangrene; E11.622 Type 2 diabetes mellitus with other skin ulcer; L97.323 Non-pressure chronic ulcer of left ankle with necrosis of muscle
CPT/HCPCS: 11043; 36415; 80048; 85025; 85610

== ENCOUNTER → 2025-04-05 08:13 | Outpatient (BNVA) | payer MEDICARE, MEDICAID, SELFPAY | PROVIDERS: PCP Nurse Practitioner Family; Visit Provider Orthopaedic Surgery | DX: S72.002D Fracture of unspecified part of neck of left femur, subsequent encounter for closed fracture with routine healing (principal); X58.XXXD Exposure to other specified factors, subsequent encounter; Z98.890 Other specified postprocedural states | CPT/HCPCS: 73502; 99024 ==

== ENCOUNTER → 2025-04-06 09:32 | Outpatient (BNVA) | payer MEDICARE, MEDICAID, SELFPAY | PROVIDERS: PCP Nurse Practitioner Family; Visit Provider Thoracic Surgery (Cardiothoracic Vascular Surgery) | DX: E11.52 Type 2 diabetes mellitus with diabetic peripheral angiopathy with gangrene (principal); E11.622 Type 2 diabetes mellitus with other skin ulcer; L97.322 Non-pressure chronic ulcer of left ankle with fat layer exposed | CPT/HCPCS: 11042 ==

== ENCOUNTER 2025-04-09 08:45 | Outpatient (CLI) | payer MEDICARE, MEDICAID, SELFPAY ==
[2025-04-09] VITALS (16 sets, daily range): BP systolic 94–171; BP diastolic 52–96; PULSE 73–99; RESP 10–28; TEMP 36.3–37.3; O2SAT 82–100; BMI 20.9
--- NOTE | 2025-04-09 09:00 | XACV_ITS ---
Ht: 183 cm Wt: 70 kg BSA: 1.88 m2 Any Known Allergies: No known allergies Gender: Male : 1955 Exam Type: Invasive Peripheral Vascular Procedure(s): Procedure Description: Diagnostic procedure Procedure Description: Peripheral Cath Diagnostic Procedure Procedure Description: Abdominal aortic angiography Procedure Description: Lower extremities' angiography Procedure Description: Peripheral vascular Intervention Procedure Description: PV Balloon Procedure Description: Miscellaneous Procedure Description: ACT Exam Priority: Routine Abdominal Diagnostic Findings Distal abdominal aorta is patent. Lower Extremity Diagnostic Findings INDICATION: 70-year-old man with past medical history of peripheral artery disease, smoking, diabetes who had a nonhealing wound of the left lower extremity. Patient also has severe discomfort in the left leg. Per patient he quit smoking few days ago. Left lower extremity findings: Left common iliac artery is patent. Left internal iliac artery is patent. Left external iliac artery has long severe 70 to 80% stenosis. Proximal common femoral artery has severe 80% stenosis. Left SFA is 100% occluded ostially. Prior SFA stent is also occluded. Left profunda artery is patent. Collateral blood supply reconstitute popliteal artery which has diffuse disease. Below the knee anterior tibial artery is 100% occluded proximally. Peroneal artery and posterior tibial arteries are patent.. Left Mid-longitudinal Common Femoral Artery: 70% stenosis. Left Mid-longitudinal Superficial Femoral Artery: 70% stenosis. Left Mid-longitudinal Popliteal Artery: 70% stenosis. Left Mid-longitudinal Anterior Tibial Artery: 70% stenosis. Left Mid-longitudinal Tibioperoneal Trunk: 70% stenosis. Lower Extremity Interventional Findings Left Common Femoral Artery: 80% stenosis treated with AB Harvard 35 FOOD SERVICE MANAGER Catheter [id number] and BARD 5FR Lutinox [id number] drug coated balloon. Left Superficial Femoral Artery: 100% stenosis treated with AB Harvard 35 FOOD SERVICE MANAGER Catheter [id number] and BARD 5FR Lutinox [id number] drug coated balloon. Left Popliteal Artery: 70% stenosis treated with AB Harvard 35 FOOD SERVICE MANAGER Catheter [id number]. Left Anterior Tibial Artery: 100% stenosis treated with AB ARMADA 14 OTW [id number]. Procedure detail: After diagnostic images were obtained, we switched short sheath to 45 cm long Cook sheath from right common femoral artery into left common iliac artery. Using seeker support catheter and Glidewire we crossed totally occluded SFA and with Glidewire was placed into posterior tibial artery. We dilated mid to distal SFA to popliteal artery with 5.0X250 mm Harvard balloon. Same balloon was used to dilate external iliac artery/proximal SFA and common femoral artery. We then used a 6.0x150 Lutonix DCB to dilate SFA, external iliac and common femoral arteries. We then cross totally occluded anterior tibial artery with run-through wire. Vessel was dilated with 3.0 x 200 mm balloon. At this time final angiogram showed good three-vessel runoff to the foot. Patient left the Bank Teller in a stable condition.. 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 Left Common Femoral Artery/ External iliac / SFA, Popliteal artery and anterior artery was treated with Balloons. Recommendations Dual antiplatelet therapy with aspirin and plavix. Per patient has recently quit smoking. Strongly recommended not to restart as will result in reocclusion of vessels. Hemodynamic Data Phase:Rest AO : 154.0 / 52.0 ( 92.0 ) @ 10:54:00 AM 96.0 / 45.0 ( 67.0 ) @ 11:08:00 AM Access Site Site: Right Femoral artery Sheath Size: 6 Fr Hemost... Method: Suture Hemost... Success: Successful Procedure Details Findings Procedure Consent Obtained. Admit Source: Out Patient. Pre-Procedure Time Out. Identified patient by full name and date of as verbalized by the patient/guarantor. Does the consent match the physician's order: Yes. Accurate & Complete Informed Consent: Yes. Inpatient/Outpatient History & Physical on Chart: Yes. If H&P is completed, is and addenduem needed: No; If yes, is the addendum complete: N/A. Visualize and Verify Site with Patient/Guarantor: N/A. Relevant Radiology Images available: Yes. The risks, benefits, and alternatives of sedation and/or procedure were discussed by physician. The patient agrees to continue. Procedure started. Physician arrived. Correct patient, site and procedure confirmed by cath team. Current diagnosis: Non-healing foot ulcers, critical limb ischemia. PERRLA. Strong, equal hand truckload checker bilaterally. Lungs clear x 5 lobes. IV Site on Arrival: 20 gauge in the left forearm. IV Fluids: 0.9% NaCl at KVO. 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 Pre Procedural Pulses: right dorsalis pedis was 3+. Pre Procedural Pulses: bilateral posterior tibial was Doppled. Pre Procedural Pulses: left dorsalis pedis was Doppled. Oxygen started at 2liters/min via nasal canula. bilateral groins was prepped with chloroprep then draped in the usual sterile fashion. Baseline sample Acquired. HR: 77 BPM. Physician scrubbed in. Time out performed with cath team. Lidocaine 1% infiltrated to the right groin. Arterial access obtained with micropuncture set. A 5Fr UF catheter in over wire. Abdominal aortogram performed in AP @ 10 mL/sec for a total of 30 mL. Glidewire in through UF catheter. UF advanced to left external iliac. Glidewire out. Left external iliac selected and arteriogram with runoff performed @ 10 mL/sec for a total of 20 mL. Left external iliac selected and arteriogram with runoff performed @ 10 mL/sec for a total of 30 mL. Glidewire in through UF catheter. Glidewire advanced to left common femoral. UF catheter out OTW. 6fr short sheath exchanged for 6fr 45cm flexor sheath over the glidewire. Seeker in over the glidewire. Glidewire and seeker advanced to left tibial peroneal trunk. Wire out. Hand injection through the seeker. Glidewire in through seeker to tibial peroneal trunk. Seeker catheter out. Balloon inserted over the wire to the popliteal. Inflation number : 1 A AB Harvard 35 FOOD SERVICE MANAGER Catheter [id number] was prepped and advanced across the Popliteal, Left , then inflated to 8 GRANT for 1:42 seconds. Inflation number: 1 The AB Harvard 35 FOOD SERVICE MANAGER Catheter [id number] was reinflated across the Superficial Femoral, Left, to 8 GRANT for 1:33 seconds. Inflation number: 1 The AB Harvard 35 FOOD SERVICE MANAGER Catheter [id number] was reinflated across the Common Femoral, Left, to 8 GRANT for 1:32 seconds. Balloon out over wire. Left external iliac selected and arteriogram with runoff performed @ 10 mL/sec for a total of 30 mL. Left common femoral selected and arteriogram with runoff performed @ 10 mL/sec for a total of 20 mL. Balloon inserted over the wire to the distal superficial femoral. Inflation number : 2 A BARD 5FR Lutinox [id number] drug coated balloon was prepped and advanced across the Superficial Femoral, Left , then inflated to 7 GRANT for 1:33 seconds. Inflation number: 3 The BARD 5FR Lutinox [id number] drug coated balloon was reinflated across the Superficial Femoral, Left, to 6 GRANT for 0:37 seconds. Balloon repositioned to common femoral and proximal SFA. Inflation number: 2 The BARD 5FR Lutinox [id number] drug coated balloon was reinflated across the Common Femoral, Left, to 7 GRANT for 1:21 seconds. Inflation number: 3 The BARD 5FR Lutinox [id number] drug coated balloon was reinflated across the Common Femoral, Left, to 7 GRANT for 1:04 seconds. Balloon out. Left external iliac selected and arteriogram with runoff performed @ 10 mL/sec for a total of 30 mL. Seeker in over the wire. Glidewire out. 300cm runthrough wire advanced through seeker catheter to anterior tibial. Seeker catheter out. Balloon inserted over the wire to the anterior tibial. Inflation number : 1 A AB ARMADA 14 OTW [id number] was prepped and advanced across the Anterior Tibial, Left , then inflated to 8 GRANT for 1:34 seconds. Inflation number: 2 The AB ARMADA 14 OTW [id number] was reinflated across the Anterior Tibial, Left, to 8 GRANT for 1:38 seconds. Balloon out over wire. DSA imaging performed below the knee to better visualize distal vessels. Wire out. Standard wire in through sheath. 6fr 45cm flexor sheath exchanged for new 6fr 11cm sheath over the standard wire. A Right femoral angiogram was performed to determine safe placement of closure device. ACT drawn. Results 213 seconds. Therapeutic limits - pre-heparin administration 90-150 seconds and monitoring heparin during a vascular procedure >250 seconds. Physician scrubbed out. Arterial sheath flushed and connected to tranducer and pressure bag with heparinized saline. A Suture was successful obtaining hemostatsis at the Right Femoral artery insertion site. Sheath(s) sutured into position with 2-0 silk and sterile 4x4's and Op-site applied over the site. No oozing or signs and symptoms of hematoma noted. Post Procedure: Pulses reassessed and unchanged. PERRLA. Strong, equal hand truckload checker bilaterally. No VTE prophylaxis required. Medication's Wasted: Lidocaine 1% = 10 mL. Medication's Wasted: Heparin = 2000 unit mL. Total IV fluids: 75 mL. Post-op diagnosis: Severe PAD, total occluded left SFA and anterior tibial s/p balloon angioplasty. Complications: None. Estimated blood loss: 5mL-10mL. Responsiveness - Normal response to verbal stimuli; alert and oriented, PERRLA. Airway - Unaffected, no intervention required; spontaneous ventilation. Circulation: W/N/L, pulses unchanged. Nausea/Vomiting: No. Procedure completed. Patient transferred by bed to 1st floor. Procedure Medications Start: 9:45 AM Stop: 9:45 AM Medication: Versed Amount: 1 mg Route: I.V. Start: 9:45 AM Stop: 9:45 AM Medication: Fentanyl Amount: 50 mcg Route: I.V. Start: 9:51 AM Stop: 9:51 AM Medication: Versed Amount: 1 mg Route: I.V. Start: 10:15 AM Stop: 10:15 AM Medication: Heparin Amount: 5000 units Route: I.V. Start: 10:17 AM Stop: 10:17 AM Medication: Versed Amount: 1 mg Route: I.V. Start: 10:19 AM Stop: 10:19 AM Medication: Fentanyl Amount: 25 mcg Route: I.V. Start: 10:32 AM Stop: 10:32 AM Medication: Heparin Amount: 1000 units Route: I.V. Start: 10:54 AM Stop: 10:54 AM Medication: Versed Amount: 1 mg Route: I.V. Start: 11:03 AM Stop: 11:03 AM Medication: Fentanyl Amount: 25 mcg Route: I.V. Start: 11:06 AM Stop: 11:06 AM Medication: Plavix Amount: 300 mg Route: P.O. Start: 11:08 AM Stop: 11:08 AM Medication: Heparin Amount: 1000 units Route: I.V. I, the attending physician, have reviewed and verified all procedure medications. Yes, all medications given per verbal order History/Risk Factors Hypertension: Yes Dyslipidemia: No Peripheral Arterial Disease (PAD): Yes Obesity: No Renal Disease: No Tobacco Use: Former Prior Interventions PCI: No CABG: No Valve Surgery: No Report Signatures Finalized by Kyle Contreras MD on 04/21/2025 11:56 AM
[2025-04-09] MEDS: aspirin 325 mg Tablet PO (09:05)
[2025-04-09] MEDS: diphenhydrAMINE 50 mg Capsule PO (09:05)
--- NOTE | 2025-04-09 09:40 | W.PM.OPSFHP ---
Same Day Surgery H&P Indication for Procedure/HPI DATE OF PROCEDURE: April 09, 2025 CHIEF COMPLAINT/INDICATIONFOR SURGICAL PROCEDURE: Critical limb ischemia/ Non healing wound of left foot/ Severe peripheral artery disease PREOP DIAGNOSIS: Critical limb ischemia/ Non healing wound of left foot/ Severe peripheral a PLANNED PROCEDURE: Operation Date: 04/09/25 10:00 Proposed Procedures p Peripheral Diagnostic - Periph Angio Bilat(Bilateral) - Kyle Contreras M.D Possible peripheral intervention 70-year-old man with past medical history of peripheral artery disease, smoking, diabetes who had a nonhealing wound of the left lower extremity. Patient also has severe discomfort in the left leg. Per patient he quit smoking few days ago. Patient is accompanied by ex-. Per her, he has started developing some dementia. However making his own decisions. He lives with his son whose phone is not working. All family is aware. Medications/Allergies* Home Medications ?Medication ?Instructions ?Recorded ?Confirmed ?Type hydrocodone 10 mg-acetaminophen 1 tab PO Q8H PRN Pain 03/21/24 04/06/25 History 325 mg tablet atorvastatin 20 mg tablet 20 mg PO QPM 01/08/25 04/06/25 History ketoconazole 2 % shampoo 1 applic topical .twice a week PRN 01/08/25 04/06/25 History scalp irritation metformin 1,000 mg tablet 1,000 mg PO BID 01/08/25 04/06/25 History mupirocin 2 % topical ointment 1 applic topical TID PRN skin 01/08/25 04/06/25 History irriyation tamsulosin 0.4 mg capsule 0.4 mg PO DAILY 01/08/25 04/06/25 History MetaHoney Gel 1 applic topical BID PRN as 04/06/25 04/06/25 History directed dulaglutide 1.5 mg/0.5 mL 1.5 mg SUBCUT DIRECTED 04/06/25 04/06/25 History subcutaneous [facility] gabapentin 400 mg capsule 400 mg PO BID 04/06/25 04/06/25 History tizanidine 4 mg tablet 4 mg PO BEDTIME PRN Muscle 04/06/25 04/06/25 History Spasticity Allergies/Adverse Reactions Allergy/AdvReac Type Severity Reaction Status Date / Time No Known Allergies Allergy Verified 04/09/25 09:33 Current Medications: Generic Name Dose Route Start Last Admin Trade Name Angeli PRN Reason Stop Dose Admin Sodium Chloride 1,000 mls @ 50 mls/hr 04/09/25 09:00 04/09/25 09:33 Sodium Chloride 0.9% IV 04/10/25 04:59 Not Given .Q20H ONE Pertinent History/Comorbid Conditions* Medical History (Updated 02/21/25 @ 09:20 by JUDITH Hart) Leg wound, left Tobacco dependence Nail deformity 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 Onychomycosis Dandruff Cellulitis of left foot Mild aortic stenosis Enrolled in chronic care management Fatigue Heart murmur Chronic instability of ankle Chronic ankle pain Prostate cancer screening Smoker unmotivated to quit Vitamin D deficiency Essential hypertension Toenail deformity Diabetic foot Encounter for long-term opiate analgesic use Opioid contract exists Long-term use of high-risk medication Chronic low back pain Surgical History (Updated 01/17/25 @ 00:01 by KEYANA Márquez) S/P knee replacement LEFT KNEE REPLACEMENT 2019 Hx of toe surgery PIN PLACEMENT IN LEFT GREAT TOE Family History (Updated 11/27/19 @ 12:08 by Ivanna Hernandez, ANDREW) Congestive heart failure (CHF) Cancer Social History Smoking and tobacco/nicotine status: former use of tobacco/nicotine Alcohol intake: current Alcohol intake frequency: holidays/special occasions only Alcohol type: beer Substance/Drug Use: never Pertinent Exam Findings alert, oriented x 3, clear to auscultation bilaterally and regular rate & rhythm Conscious Sedation Assessment PATIENT ASSESSED PRIOR TO SEDATION, WITH NO CHANGE NOTED: Yes AIRWAY EVAL/ANESTHESIA PLAN: normal airway, ASA III, Local Anesthesia, Risks, benefits & alternatives of sedation and/or procedure discussed and Patient agrees to continue as planned Recommendations Risks and benefits of procedure reviewed and Patient/family agree to proceed Surgery/Procedure today (Peripheral angiogram with possible percutaneous peripheral intervention) Coding Level of Care Code Acute Code for Sanjay Shafer
--- NOTE | 2025-04-09 11:12 | PM.PROC ---
Procedure Note: Date of procedure: 04/09/25 Pre-procedure diagnosis: Critical limb ischemia/ Non-healing wound left lower extremity Post-procedure diagnosis: other Procedure: Totally occluded SFA. Severe stenosis of common femoral artery and external iliac artery. Total occlusion of anterior tibial artery. Status post successful revascularization with balloon angioplasty. Patient now has 3 vessel run-off. Dual antiplatelet therapy with aspirin and plavix. Per patient, he has quit smoking, had a discussion, if does not quit smoking, will have reocclusion of these vessels. Performing Provider: Kyle Contreras Estimated blood loss (mL): 10 Complications: None Condition: stable Disposition: floor Coding Level of Care Code Acute Code for [facility] Fwd
--- NOTE | 2025-04-09 11:15 | PC.NURSE ---
Received the patient back from the metallurgy laboratory technician via bed s/p peripheral intervention of the left leg. Patient drowsy but awakens easily to voice. A & 0 x 3. quality assurance monitor chassis placed and vital signs obtained. Right Femoral access site with intact 6fr sheath. Sutured in place to pressure bag. No bleeding or hematoma noted. Doppled left PT and DP pulses. No other assessment changes noted from pre cath assessment. Family at bedside. No concerns voiced at this time. Will transfer to [facility] when room clean.
--- NOTE | 2025-04-09 11:58 | PC.NURSE ---
patient transferred to room 107 with all belongings
--- NOTE | 2025-04-09 12:16 | PC.NURSE ---
Patient transferred to CSU from metallurgical laboratory assistant at 1200. Patient came with right femoral sheath and a pressure bag.
--- NOTE | 2025-04-09 14:20 | PC.NURSE ---
Provider is notified that patient did not take his medications this morning prior to microbiology lab analyst. He is requesting something for his leg spams. He is having a hard time not moving them. He is trying to hold his right leg still since he has a sheath in it. Provider okay'd to give his gabapentin now and give his 2nd dose at 2200.
[2025-04-09] MEDS: gabapentin 400 mg Capsule PO ×2 (14:36→20:32)
--- NOTE | 2025-04-09 15:25 | PC.NURSE ---
Nursing staff walked into room to check on patient and he was sitting up on the side of the bed to urinate just now. Nursing staff helped patient back into bed and reeducated the patient that he must stay in the bed with his right leg still for now. Patient states understanding. No hematoma is noted at this time.
[2025-04-09 16:28] LABS: Glucose Point of Care 104 mg/dL (70-110)
[2025-04-09] MEDS: ATORVASTATIN 10 MG TABLET 20 MG PO (18:03)
--- NOTE | 2025-04-09 18:08 | PC.NURSE ---
Patient's right femoral sheath was pulled at 1550. Hemostasis was obtained immediately. Manual pressure was held for 20 minutes. Vitals remained stable throughout. A dressing of a 4x4 and tegaderm is applied. Patient is reeducated not to move his right leg until 2215. Patient states understanding.
[2025-04-09] MEDS: tizanidine 4 mg Tablet PO (20:32)
[2025-04-09 20:45] LABS: Glucose Point of Care 264 mg/dL (70-110)
[2025-04-10 01:41] VITALS: BP 117/63; PULSE 72; RESP 10; TEMP 37.1; O2SAT 95
[2025-04-10 04:56] LABS: Basophils % 0.5 %; Eosinophils # 0.1 10^3/uL (0.0-0.8); Eosinophils % 1.5 %; Hematocrit 43.6 % (37-53); Lymphocytes # 0.7 10^3/uL (0.8-4.8); Lymphocytes % 8.2 %; Mean Corpuscular HGB Conc 31.9 g/dL (30-55); Mean Corpuscular Hemoglobin 31.5 pg (27-33); Mean Corpuscular Volume 98.9 fl (82-101); Mean Platelet Volume 10.2 fL (7.4-10.4); Monocytes # 0.6 10^3/uL (0.2-0.9); Monocytes % 7.3 %; Neutrophils # 6.49 10^3/uL (1.8-7.7); Nucleated Red Blood Cells % 0 %; Platelet Count 170 10^3/cmm (157-399); Red Blood Count 4.41 10^6/uL (3.85-5.65); Red Cell Distribution Width 13.2 % (12.1-15.1); White Blood Count 7.92 10^3/uL (3.29-11.43)
[2025-04-10 05:32] LABS: Anion Gap 14.4 (5-19); Blood Urea Nitrogen 10 mg/dL (8-23); Calcium 8.9 mg/dL (8.5-10.5); Carbon Dioxide 27 mmol/L (22-29); Chloride 103 mmol/L (98-107); Creatinine Clr Calc Pharmacy 88.1672; Glucose 154 mg/dL (65-115); Osmolality Calculated 292 mOsm/kg (285-295); Potassium 4.4 mmol/L (3.5-5.1); Sodium 140 mmol/L (136-145)
[2025-04-10 07:42] LABS: Glucose Point of Care 142 mg/dL (70-110)
[2025-04-10 08:10] VITALS: BP 150/92; PULSE 94; RESP 22; TEMP 36.7; O2SAT 96
[2025-04-10] MEDS: aspirin 81 mg EC Tablet PO (08:58)
[2025-04-10] MEDS: tamsulosin 0.4 mg Capsule PO (08:58)
[2025-04-10] MEDS: clopidogrel 75 mg Tablet PO (08:58)
[2025-04-10 10:53] VITALS: BP 115/63; PULSE 95; RESP 16; O2SAT 92
[2025-04-10] MEDS: gabapentin 400 mg Capsule PO (10:53)
--- NOTE | 2025-04-10 12:28 | P.DS_ITS ---
<Statement entered by Kyle Contreras M.D - 04/11/25 09:49> Patient was cared for in conjunction with an advanced practice practitioner.? I reviewed the chart and all pertinent data including imaging, telemetry, and laboratory results.? I discussed the patient in detail with the advanced practice practitioner.? Please see?their note for progress note, testing results and agreed upon plan of care for the patient. Discharge Providers Date of Admission: 04/09/2025 Date of Discharge: April 10, 2025 Attending Provider at Admission: Dr. Contreras Attending Provider at Discharge: Kyle Contreras M.D Primary Care Provider: JUDITH Kamara Reason for Visit Reason for Visit: I73.9 Brief History: This is a 70-year-old gentleman with a history of PAD, smoking, diabetes had a nonhealing wound of the left lower extremity. He had severe discomfort in the left leg. He quit smoking a few days ago. He underwent a scheduled peripheral angiogram of the left lower extremity with possible interventions. Hospital Course Hospital Course Patient underwent peripheral angiogram with right Alvarado stick and he was found to have severe stenosis of the common femoral and external iliac artery as well as totally occluded SFA and anterior tibial arteries. He underwent successful revascularization with balloon angioplasty and had three-vessel runoff. He tolerated procedure well without complications. Physical Exam Narrative: General: No apparent distress, healthy appearing, well nourished HENMT: normoceophalic Muskuloskeletal: Full ROM Respiratory: Normal respiratory effort, clear to auscultation bilaterally throughout all lung st, no use of accessory muscles Cardio: No JVD, regular rate, regular rhythm, S1 S2 normal, systolic murmur aortic space grade II/, peripheral pulses 2+ radial palpated bilaterally Extremities: Full ROM, normal, normal capillary refill, no cyanosis, trace edema left lower extremity Neuro: Alert and oriented x4, no focal motor deficits Psych: Affect normal, denies suicidal ideation, mental status grossly normal Skin: Left foot is wrapped with gauze, patient has 2+ PT and DP on the left palpable on the right he does have trace edema in the left lower extremity Discharge Data Studies Completed and Pending Pending at discharge Category Date Time Status APPRENTICESHIP REPRESENTATIVE request for service Routine Exams 04/09/25 09:00 Taken Laboratory Results WBC 7.92 10^3/uL (3.29-11.43) 04/10/25 04:25 RBC 4.41 10^6/uL (3.85-5.65) 04/10/25 04:25 Hgb 13.90 g/dL (11.27-16.99) 04/10/25 04:25 Hct 43.6 % (37-53) 04/10/25 04:25 MCV 98.9 fl (82-101) 04/10/25 04:25 MCH 31.5 pg (27-33) 04/10/25 04:25 MCHC 31.9 g/dL (30-55) 04/10/25 04:25 RDW 13.2 % (12.1-15.1) 04/10/25 04:25 Plt Count 170 10^3/cmm (157-399) 04/10/25 04:25 MPV 10.2 fL (7.4-10.4) 04/10/25 04:25 Neut % (Auto) 82.0 % 04/10/25 04:25 Lymph % (Auto) 8.2 % 04/10/25 04:25 Zapata % (Auto) 7.3 % 04/10/25 04:25 Eos % (Auto) 1.5 % 04/10/25 04:25 Baso % (Auto) 0.5 % 04/10/25 04:25 Neut # (Auto) 6.49 10^3/uL (1.8-7.7) 04/10/25 04:25 Lymph # (Auto) 0.7 10^3/uL (0.8-4.8) L 04/10/25 04:25 Zapata # (Auto) 0.6 10^3/uL (0.2-0.9) 04/10/25 04:25 Eos # (Auto) 0.1 10^3/uL (0.0-0.8) 04/10/25 04:25 Baso # (Auto) 0.0 10^3/uL (0.0-0.1) 04/10/25 04:25 Nucleated RBC % (auto) 0 % 04/10/25 04:25 Nucleated RBCs # 0.0 /100WBC 04/10/25 04:25 APTT 31.0 SECONDS (23.9-36.7) 04/09/25 14:40 Sodium 140 mmol/L (136-145) 04/10/25 04:25 Potassium 4.4 mmol/L (3.5-5.1) 04/10/25 04:25 Chloride 103 mmol/L (98-107) 04/10/25 04:25 Carbon Dioxide 27 mmol/L (22-29) 04/10/25 04:25 Anion Gap 14.4 (5-19) 04/10/25 04:25 BUN 10 mg/dL (8-23) 04/10/25 04:25 Creatinine 0.6 mg/dL (0.7-1.2) L 04/10/25 04:25 GFR Calculation Not Reportable 04/10/25 04:25 Glucose 154 mg/dL (65-115) H 04/10/25 04:25 POC Glucose 142 mg/dL (70-110) H 04/10/25 07:29 Calculated Osmolality 292 mOsm/kg (285-295) 04/10/25 04:25 Calcium 8.9 mg/dL (8.5-10.5) 04/10/25 04:25 Procedures Performed Date of procedure: 04/09/25 Pre-procedure diagnosis: Critical limb ischemia/ Non-healing wound left lower extremity Post-procedure diagnosis: other Procedure: Totally occluded SFA. Severe stenosis of common femoral artery and external iliac artery. Total occlusion of anterior tibial artery. Status post successful revascularization with balloon angioplasty. Patient now has 3 vessel run-off. Dual antiplatelet therapy with aspirin and plavix. Per patient, he has quit smoking, had a discussion, if does not quit smoking, will have reocclusion of these vessels. Performing Provider: Kyle Contreras Estimated blood loss (mL): 10 Complications: None Condition: stable Disposition: floor Vitals Last Vital Signs Temp 98.0 F 04/10/25 08:10 Pulse 95 04/10/25 10:53 Resp 16 04/10/25 10:53 BP 115/63 04/10/25 10:53 Pulse Ox 92 04/10/25 10:53 O2 Del Method Room Air 04/10/25 10:53 Discharge Plan Discharge Patient Disposition: Home Prescriptions: New aspirin 81 mg Tablet,Delayed Release (Dr/Ec) 81 mg PO DAILY Qty: 90 0RF Continued hydrocodone-acetaminophen 10-325 mg tablet 1 tab PO Q8H PRN (Reason: Pain) nicotine 14 mg/24 hr patch 24 hour 1 patch transdermal DAILY Qty: 28 1RF (DME) lancets Misc See Rx Instructions .Route Qty: 200 2RF Rx Instructions: USE TO CHECK BLOOD SUGAR DAILY. (DME) blood sugar diagnostic Strip See Rx Instructions .Route Qty: 100 2RF Rx Instructions: USE TO CHECK BLOOD SUGAR DAILY. doxycycline hyclate 100 mg capsule 100 mg PO BID Qty: 20 0RF Rx Instructions: take with food clopidogrel 75 mg tablet 75 mg PO DAILY Qty: 90 2RF tizanidine 4 mg tablet 4 mg PO BEDTIME PRN (Reason: Muscle Spasticity) Rx Instructions: TAKE 1 TABLET BY MOUTH ONCE EVERY NIGHT AT BEDTIME Needed FOR MUSCLE spasticity gabapentin 400 mg capsule 400 mg PO BID Rx Instructions: TAKE 1 CAPSULE BY MOUTH EVERY 12 HOURS FOR 28 DAYS Trulicity 1.5 mg/0.5 mL pen injector 1.5 mg SUBCUT DIRECTED Rx Instructions: inject 1.5 MG (0.5 ML) subcutaneously WEEKLY FOR 1 MONTH MetaHoney Gel 1 applic topical BID PRN (Reason: as directed) Rx Instructions: 1 appliacation to wound BID PRN; atorvastatin 20 mg tablet 20 mg PO QPM ketoconazole 2 % shampoo 1 applic topical .twice a week PRN (Reason: scalp irritation) tamsulosin 0.4 mg capsule 0.4 mg PO DAILY mupirocin 2 % ointment 1 applic topical TID PRN (Reason: skin irriyation) Held metformin 1,000 mg tablet 1,000 mg PO BID Hold Instructions: Resume on 04/12/25. Discharge Orders: Discharge Order (Routine); Ordered 04/10/25 Ordered By: Lady Treviño Referrals: Keely Bernal FNP [Nurse Practitioner, Cardiology] - 04/17/25 1:30 pm Diet: Advance as tolerated Activity: Increase activity as tolerated and Limit activity as instructed Patient Instructions: Aspirin (By mouth), Peripheral Vascular Stent Placement (DC), Peripheral Vascular Angioplasty (DC) Activity Restrictions/Additional Instructions: Discussed with patient no heavy lifting more than a gallon of milk as well as going up or down steps for 3 days. No driving for 3 days. Monitor for and report signs or symptoms of bleeding. Monitor for and report s/s of infection such as fever 101 or greater, swelling, redness or pain to the groin. Print Language: Macedonian Discharge Date/Time: 04/10/25 11:30 Discharge Attestations Time Spent in Discharge Care*: less than 30 min Quality Metrics Clinical Quality Measures [ No reported AMI, CVA or VTE this stay] Coding Level of Care Code Acute Code for Chg Hollis
== END 2025-04-10 11:30 | disposition home or self-care (01) ==
LOC: CCL 08:46 → CSU 11:52
PROVIDERS: Nurse Practitioner Family; PCP Nurse Practitioner Family; Visit Provider Internal Medicine
DX: I70.202 Unspecified atherosclerosis of native arteries of extremities, left leg (principal); I70.92 Chronic total occlusion of artery of the extremities; Z95.5 Presence of coronary angioplasty implant and graft; I10 Essential (primary) hypertension; Z87.891 Personal history of nicotine dependence; E11.9 Type 2 diabetes mellitus without complications; Z79.84 Long term (current) use of oral hypoglycemic drugs; R01.1 Cardiac murmur, unspecified; T81.89XA Other complications of procedures, not elsewhere classified, initial encounter; X58.XXXA Exposure to other specified factors, initial encounter
CPT/HCPCS: 36415; 36416; 37224; 37228; 75625; 75710; 80048; 82962; 85025; 85347; 85730; 96376; 99152; 99153; C1725; C1769; C1887; C1894; C2623; J1644; J2250; J3010; J7030; J9999; Q0163; Q9967

== ENCOUNTER → 2025-04-13 10:25 | Outpatient (BNVA) | payer MEDICARE, MEDICAID, SELFPAY | PROVIDERS: PCP Nurse Practitioner Family; Visit Provider Thoracic Surgery (Cardiothoracic Vascular Surgery) | DX: E11.52 Type 2 diabetes mellitus with diabetic peripheral angiopathy with gangrene (principal); E11.622 Type 2 diabetes mellitus with other skin ulcer; L97.322 Non-pressure chronic ulcer of left ankle with fat layer exposed; E11.621 Type 2 diabetes mellitus with foot ulcer; L97.521 Non-pressure chronic ulcer of other part of left foot limited to breakdown of skin | CPT/HCPCS: 11042; 97597 ==

== ENCOUNTER → 2025-04-17 13:16 | Outpatient (BNVA) | payer MEDICARE, MEDICAID, SELFPAY | PROVIDERS: PCP Nurse Practitioner Family; Visit Provider Nurse Practitioner Family | DX: I73.9 Peripheral vascular disease, unspecified (principal); I10 Essential (primary) hypertension; Z09 Encounter for follow-up examination after completed treatment for conditions other than malignant neoplasm; E13.49 Other specified diabetes mellitus with other diabetic neurological complication; Z79.84 Long term (current) use of oral hypoglycemic drugs; Z79.85 Long-term (current) use of injectable non-insulin antidiabetic drugs; Z87.891 Personal history of nicotine dependence; Z79.02 Long term (current) use of antithrombotics/antiplatelets; Z79.82 Long term (current) use of aspirin | CPT/HCPCS: 36415; 80048; 85025; 99213 ==

== ENCOUNTER → 2025-04-18 08:45 | Outpatient (BNVA) | payer MEDICARE, MEDICAID, SELFPAY | PROVIDERS: PCP Nurse Practitioner Family; Visit Provider Nurse Practitioner Family | DX: I10 Essential (primary) hypertension (principal); L97.509 Non-pressure chronic ulcer of other part of unspecified foot with unspecified severity; E08.621 Diabetes mellitus due to underlying condition with foot ulcer; E55.9 Vitamin D deficiency, unspecified; R53.82 Chronic fatigue, unspecified; D64.9 Anemia, unspecified; R41.3 Other amnesia; R31.9 Hematuria, unspecified | CPT/HCPCS: 80053; 80061; 81003; 82607; 82728; 82746; 83036; 83550; 87086 ==

== ENCOUNTER → 2025-04-20 10:15 | Outpatient (BNVA) | payer MEDICARE, MEDICAID, SELFPAY | PROVIDERS: PCP Nurse Practitioner Family; Visit Provider Thoracic Surgery (Cardiothoracic Vascular Surgery) | DX: E11.52 Type 2 diabetes mellitus with diabetic peripheral angiopathy with gangrene (principal); E11.622 Type 2 diabetes mellitus with other skin ulcer; L97.322 Non-pressure chronic ulcer of left ankle with fat layer exposed; E11.621 Type 2 diabetes mellitus with foot ulcer; L97.521 Non-pressure chronic ulcer of other part of left foot limited to breakdown of skin | CPT/HCPCS: 11042; 97597; 97605; A6237; A6250 ==

== ENCOUNTER → 2025-04-27 09:57 | Outpatient (BNVA) | payer MEDICARE, MEDICAID, SELFPAY | PROVIDERS: PCP Nurse Practitioner Family; Visit Provider Thoracic Surgery (Cardiothoracic Vascular Surgery) | DX: E11.52 Type 2 diabetes mellitus with diabetic peripheral angiopathy with gangrene (principal); E11.622 Type 2 diabetes mellitus with other skin ulcer; L97.321 Non-pressure chronic ulcer of left ankle limited to breakdown of skin; E11.621 Type 2 diabetes mellitus with foot ulcer; L97.521 Non-pressure chronic ulcer of other part of left foot limited to breakdown of skin | CPT/HCPCS: 11042; 97597; 97605; A6237; A6250 ==

== ENCOUNTER → 2025-05-04 10:23 | Outpatient (BNVA) | payer MEDICARE, MEDICAID, SELFPAY | PROVIDERS: PCP Nurse Practitioner Family; Visit Provider Thoracic Surgery (Cardiothoracic Vascular Surgery) | DX: E11.52 Type 2 diabetes mellitus with diabetic peripheral angiopathy with gangrene (principal); E11.621 Type 2 diabetes mellitus with foot ulcer; L97.321 Non-pressure chronic ulcer of left ankle limited to breakdown of skin; L97.521 Non-pressure chronic ulcer of other part of left foot limited to breakdown of skin; E11.622 Type 2 diabetes mellitus with other skin ulcer; L97.821 Non-pressure chronic ulcer of other part of left lower leg limited to breakdown of skin | CPT/HCPCS: 97597; 97605; A6260 ==

== ENCOUNTER → 2025-05-10 10:23 | Outpatient (BNVA) | payer MEDICARE, MEDICAID, SELFPAY | PROVIDERS: PCP Nurse Practitioner Family; Visit Provider Thoracic Surgery (Cardiothoracic Vascular Surgery) | DX: E11.52 Type 2 diabetes mellitus with diabetic peripheral angiopathy with gangrene (principal); E11.622 Type 2 diabetes mellitus with other skin ulcer; L97.321 Non-pressure chronic ulcer of left ankle limited to breakdown of skin; L97.521 Non-pressure chronic ulcer of other part of left foot limited to breakdown of skin; Z09 Encounter for follow-up examination after completed treatment for conditions other than malignant neoplasm | CPT/HCPCS: 11042; 97605 ==

== ENCOUNTER → 2025-05-18 09:49 | Outpatient (BNVA) | payer MEDICARE, MEDICAID, SELFPAY | PROVIDERS: PCP Nurse Practitioner Family; Visit Provider Thoracic Surgery (Cardiothoracic Vascular Surgery) | DX: E11.52 Type 2 diabetes mellitus with diabetic peripheral angiopathy with gangrene (principal); E11.622 Type 2 diabetes mellitus with other skin ulcer; L97.321 Non-pressure chronic ulcer of left ankle limited to breakdown of skin; Z09 Encounter for follow-up examination after completed treatment for conditions other than malignant neoplasm | CPT/HCPCS: 97597 ==

== ENCOUNTER 2025-05-20 21:37 | Inpatient (IN) | payer MEDICARE, MEDICAID, SELFPAY ==
--- OUTSIDE RECORDS SUMMARY | 2025-01-11 02:30 | XMS_ITS ---
Author Organization [facility] Address [address] [place], [place] [id number] Care Team Providers Care Core Analysis Operator Name Role Phone Aishwarya Gonzalez Primary Care Provider Unavailab Martin KIRKPATRICK, Tyrone Unavailable [phone] Gross EMERGENCY RESPONSE OFFICER, ABNER Unavailable Unavailable Allergies No Known Allergies [...] Location Date Provider Diagnosis [facility] [address] [place], [place] [id number] 01/11/2025 Tyrone Burks Vertebrogenic low ba ck [...] Mariaelena TREVIÑO LDOB: 3 (70 yo M)Acc No.[id number]:01/11/2025 Patient: Mariaelena PHAN Provider: Cesar Burks :1955 A ge:70 Y S ex:Male Date:01/11/2025 Address:[place] [address] [id number] Pcp:JUDITH Gamboa Subjective: * Chief Complaints: * [...] - injection performed by Dr. Balderrama via [facility] pain clinic with history of no benefit; medication management / opioid therapy by Dr. Balderrama via [facility] pain clinic with history of b enefit. Medication history: N eurontin 400 mg; Woodridge 10/325; Zanaflex 4 mg; OTC Blue Emu and Active Ice topical applications. M edications: Neurontin (gabapentin) 4 00 mg, 1 cap, orally, Q12H, 28 days, 56, Refills 1(last prescribed 11/22/24). Patient reports * benefit with quantity * and * refills.Last fill date: *. Woodridge (hydrocodone / acetaminophen) 3 25 mg-10 mg, [...] toe , Knee replacement, left, performed at [facility] by Dr. Padron, 2019, Angioplasty with placement of stent, left leg, performed at [facility] by Dr. Contreras, 06/2024. * Hospitalization/Major Diagno stic Procedure: Camelia segura, treated at [facility] in [place], [place], 2007. * Medications: T aking acetaminophen-hydrocodone [...] Electronic signature of Pavan Burks MD on 05/20/2025 at 09:51 PM CDT Sign off status: Pending * Provider: Cesar Burks Date: 0 01/11/2025 Generated for Concha sarmiento/Adelaide/eTreina on: 0 05/20/2025 09:51 PM CDT History and Physical Notes * [...] and * refills. Last fill date: * Woodridge (hydrocodone / acetaminophen) 325 mg-10 mg, 1 [...] - injection performed by Dr. Balderrama via [facility] pain clinic with history of no benefit; medication management / opioid therapy by Dr. Balderrama via [facility] pain clinic with history of benefit [...]
--- OUTSIDE RECORDS SUMMARY | 2025-01-11 02:30 | XMS_ITS ---
Author Organization [facility] Address [address] [place], [place] [id number] Care Team Providers Care Hand Former Name Role Phone Aishwarya Gonzalez Primary Care Provider Unavailab Martin KIRKPATRICK, Tyrone Unavailable [phone] Gross INVAS TECH, ABNER Unavailable Unavailable Allergies No Known Allergies [...] Location Date Provider Diagnosis [facility] [address] [place], [place] [id number] 01/11/2025 Tyrone Burks Vertebrogenic low ba ck [...] Mariaelena TREVIÑO LDOB: 3 (70 yo M)Acc No.[id number]:01/11/2025 Patient: Mariaelena PHAN Provider: Cesar Burks :1955 A ge:70 Y S ex:Male Date:01/11/2025 Address:[place] [id number] Pcp:JUDITH Gamboa Subjective: * Chief Complaints: * [...] injection therapy - injection performed by Dr. Baldrerama via [facility] pain clinic with history of no benefit; medication management / opioid therapy by Dr. Balderrama via [facility] pain clinic with history of b enefit. Medication history: N eurontin 400 mg; Coolidge 10/325; Zanaflex 4 mg; OTC Blue Emu and Active Ice topical applications. M edications: Neurontin (gabapentin) 4 00 mg, 1 cap, orally, Q12H, 28 days, 56, Refills 1(last prescribed 11/22/24). Patient reports * benefit with quantity * and * refills.Last fill date: *. Coolidge (hydrocodone / acetaminophen) 3 25 mg-10 mg, [...] toe , Knee replacement, left, performed at [facility] by Dr. Pdaron, 2019, Angioplasty with placement of stent, left leg, performed at [facility] by Dr. Contreras, 06/2024. * Hospitalization/Major Diagno stic Procedure: Camelia segura, treated at [facility] in [place], [place], 2007. * Medications: T aking acetaminophen-hydrocodone [...] Electronic signature of Pavan Burks MD on 05/21/2025 at 06:44 AM CDT Sign off status: Pending * Provider: Cesar Burks Date: 0 01/11/2025 Generated for Concha sarmiento/Adelaide/eTreina on: 0 05/21/2025 06:44 AM CDT History and Physical Notes * HPI [...] and * refills. Last fill date: * Coolidge (hydrocodone / acetaminophen) 325 mg-10 mg, 1 [...] - injection performed by Dr. Balderrama via [facility] pain clinic with history of no benefit; medication management / opioid therapy by Dr. Balderrama via [facility] pain clinic with history of benefit [...]
[2025-05-20 21:42] VITALS: BP 84/48; PULSE 104; RESP 16; TEMP 39; O2SAT 90
--- OUTSIDE RECORDS SUMMARY | 2025-05-20 21:50 | XMS_ITS | Encounter Summary ---
Author Organization [facility] Address [address] [place] [address] Care Team Providers Care Cat Wagon Operator Name Role Phone Jaylene Mccoy DO Primary Care Provider [phone] Encounter Details Date Type Department Care Team (Latest Contact Info) Description 08/15/2002 Outpatient Historical [facility] Family Medicine [address] [phone] Jefferson Bhakta DO NO ADDRESS ON FILE ACUTE BRONCHITIS (Primary Dx) Social History Tobacco Use Types Packs/Day Years Used Date Smoking Tobacco: Never Assessed Sex and Gender Information Value Date Recorded Sex Assigned at Not on file 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
--- OUTSIDE RECORDS SUMMARY | 2025-05-20 21:50 | XMS_ITS | Encounter Summary ---
Author Organization [facility] Address [address] [place] [address] Care Team Providers Care Environmental Health Sanitarian Name Role Phone Jaylene Mccoy DO Primary Care Provider [phone] Encounter Details Date Type Department Care Team (Latest Contact Info) Description 08/01/2002 Outpatient Historical [facility] Family Medicine- [place] [address] [place] [address] Jefferson Bhakta DO NO ADDRESS ON FILE ACUTE BRONCHITIS (Primary Dx); CHEST PAIN NOS Social History Tobacco Use Types Packs/Day Years Used Date Smoking Tobacco: Never Assessed Sex and Gender Information Value Date Recorded Sex Assigned at Not on file 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
--- OUTSIDE RECORDS SUMMARY | 2025-05-20 21:50 | XMS_ITS | Encounter Summary ---
Author Organization [facility] Address [address] [place] [address] Care Team Providers Care Rivet Heater Gas Name Role Phone Jaylene Mccoy DO Primary Care Provider [phone] Encounter Details Date Type Department Care Team (Latest Contact Info) Description 12/04/1998 Outpatient Historical [facility] Family Medicine [address] [phone] Jefferson Bhakta DO NO ADDRESS ON FILE Other joint derangement, not elsewhere classified, lower leg (Primary Dx) Social History Tobacco Use Types Packs/Day Years Used Date Smoking Tobacco: Never Assessed Sex and Gender Information Value Date Recorded Sex Assigned at Not on file 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
--- OUTSIDE RECORDS SUMMARY | 2025-05-20 21:50 | XMS_ITS | Clinical Summary ---
Author Organization [facility] Address [address] [place] [address] Care Team Providers Care Cisco Certified Network Associate Name Role Phone Jaylene Mccoy Primary Care Provider [phone] Allergies No known active allergies Medications dulaglutide (Trulicity) 0.75 mg/0.5 mL injection Inject 0.75 mg by subcutaneous injection every 7 days. 1 Active Active Problems Problem Noted Date Diagnosed Date S/P TKR (total knee replacement), left 9 Hyperlipidemia 07/28/2010 Depression 10/18/2009 DJD (degenerative joint disease) 05/13/2009 Blindness of one eye COPD (chronic obstructive pulmonary disease) H/O: CVA Type 1 diabetes mellitus Resolved Problems Problem Noted Date Diagnosed Date Resolved Date Neck pain 02/20/2009 2011 Encounters Date Type Department Care Team Description 04/10/2025 External Device Data ST[facility] ABSTRACTION Provider, Abstract from Last 3 Months Immunizations Immunization Administration Dates Next Due (PNEUMOVAX 23)(50 YRS UP) PN EUMOCOCCAL POLYSACCHARIDE (PPV23) 0.5 ML, IM 03/22/2009 (TDVAX)(7 YRS UP) TETANUS AN D DIPHTHERIA TOXOIDS, ADSORBED (2 LF OF TETANUS TOXOID AND 2 LF OF DIPHTHERIA TOXOID), 0.5ML (PF), IM 06/27/2008 Influenza Vaccine Split 3+ Yrs IM 08/13/2009 Influenza Vaccine Split 3+ Yrs PF IM 09/08/2011, 10/24/2010 Social History Tobacco Use Types Packs/Day Years Used Date Smoking Tobacco: Every Day Cigarettes Alcohol Use Standard Drinks/Week Comments Yes 0 (1 standard drink = 0.6 oz pur e alcohol) Sex and Gender Information Value Date Recorded Sex Assigned at Not on file Legal Sex Male 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 Gender Identity Not on file Sexual Orientation Not on file Last Filed Vital Signs Vital Sign Reading Time Taken Comments Blood Pressure 149/76 04/23/2021 11:22 AM CDT Pulse 79 04/23/2021 11:22 AM CDT Temperature 36.4 C (97.5 F) 04/23/2021 11:26 AM CDT Respiratory Rate 16 04/23/2021 11:22 AM CDT Oxygen Saturation - - Inhaled Oxygen Concentration - - Weight 87.1 kg (192 lb) 04/23/2021 9:13 AM CDT Height 182.9 cm (6') 04/23/2021 9:13 AM CDT Body Mass Index 26.04 04/23/2021 9:13 AM CDT Plan of Treatment Health Maintenance Due Date Last Done Comments DIABETES MICROALBUMIN ANNUAL SCREEN 1971 LDL CHOLESTEROL ANNUAL 1971 FIT-DNA Q 3 years 1998 FIT/FOBT Q 1 year 1998 Flex Sig/CT Colonography Q 5 years 1998 ZOSTER VACCINE (1 of 2) 2003 DTAP/TDAP/TD VACCINES (1 - Tdap) 06/28/2008 06/27/20 08 DIABETES ANNUAL FOOT EXAM 03/22/2010 03/22/2009 PNEUMOCOCCAL VACCINE 50+ YEA RS (2 of 2 - PCV) 03/22/2010 03/22/2009 RSV VACCINE (60+ or ) (1 - Risk 60-74 years 1-dose series) 2013 DIABETES ANNUAL RETINAL EXAM 04/19/2019 04/19/2018, 07/01/2015 DIABETES HBA1C Q 6 MONTHS 01/22/20202018, 04/25/2019, 01/20/2019, Additional history exists INFLUENZA VACCINE (#1) 2025 1, 10/24/2010, 08/13/2009 COLORECTAL SCREENING 07/20/2026 07/20/2016 Colorectal Cancer Screening 07/20/2026 Medical Devices Implanted Type Area Fund Raiser Device Identifier Shelf Expiration Date Model / Serial / Lot Lens Io Bi-Aspheric Softechd+20.75 - [id number] Implanted:Qty: 1 on 04/23/2021 by John Day MD Eye Right: Eye [employer] 12/02/2022 SOFTECHD+20 .75 / [id number] / Insurance MEDICAID [facility] ADV MEDIPAK ADV HMO [id number] [facility] Care Teams Cisco Certified Network Associate Relationship Specialty Start Date End Date Jaylene Mccoy DO [address] [facility] [address] [place] [address] PCP - General Family Practice 02/08/15
--- OUTSIDE RECORDS SUMMARY | 2025-05-20 21:51 | XMS_ITS | Data Portability ---
Author Organization [facility] Alli Gusman, [facility] Address [address] [place] [id number] Assessment No assessment recorded. Plan of Treatment Reminders Order Date Submit Date Provider Last Modified By Organization Details Last Modified Time Details Appointments None record ed. Lab None record ed. Referral None record ed. Procedures None record ed. Surgeries None record ed. Imaging None record ed. Medication Orders None record ed. Patient TargetsNo targets recorded. Patient Instructions Encounter Date Encounter Id Patient Instructions Last Modified By Organization Details Last Modified Time 01/24/2025 [id number] Records reviewed . Fall at home resulted in left hip fracture, requiring surgical intervention. Did well post-op, hemoglobin 12 at d/c. At SNF for therapy. Pain controlled, sugars good. Labs on Wednesday, f/u 1 week. [email or web address] Not available 01/24/2025 14:27:04 01/31/2025 [id number] c/o constipation . Will give enema today, start miralax daily and stop norco. [email or web address] Not available 01/31/2025 12:44:41 02/14/2025 [id number] c/o urinary frequency and incontinence, will get UA(if negative, consider starting finasteride). Schedule labs. c/o left leg pain, will give hydrocodone 5/325 bid prn. [email or web address] Not available 02/14/2025 15:59:17 Reason for Referral None Reported. Problems Name Problem SNOMED Code Status Onset Date Resolution Date Notes Provider Name and Address Organization Details Recorded Time Chronic pain 05464784 Active 2024 [place] [place], [place] [facility]12[facility] Hospital inpatient stay within past 30 days 3665953518679 Active 2024 AIRAM bah [facility], LMary Jo 5 14:21:49 Uncontroll ed type 2 diabetes mellitus 817547291 Active 2024 AIRAM bah [facility], L.L.CKeira 5 14:25:45 Fracture of neck of femur 8543122 [facility] 12:24:50 Problem Notes None recorded. Medical Equipment None Reported. Medications Name Sig Start Date Stop Date Status Note LastModified by Organization Details LastModified Time atorvastatin 20 mg tablet TAKE 1 TABLET BY MOUTH DAILY active Not Available Not Available Not Available nicotine 14 mg/24 hr daily transdermal patch apply 1 PATCH transdermal ly ONCE daily active Not Available Not Available No t Available ketoconazole 2 % shampoo use 1 application topically TWICE A WEEK for 30 days active Not Available Not Available No t Available cilostazol 50 mg tablet TAKE 1 TABLET BY MOUTH TWICE DAILY active Not Available Not Available No t Available tizanidine 4 mg tablet TAKE 1 TABLET BY MOUTH ONCE EVERY NIGHT AT BEDTIME Needed FOR MUSCLE spasticity active Not Available Not Available N ot Available hydrocodone 5 mg-acetamino phen 325 mg tablet Take 1 tablet twice a day by oral route as needed for 30 days. 2024 active Not Available Not Available Not Avai lable gabapentin 400 mg capsule TAKE 1 CAPSULE BY MOUTH EVERY 12 HOURS FOR 28 DAYS active Not Available Not Available Not Available clopidogrel 75 mg tablet TAKE 1 TABLET BY MOUTH DAILY active Not Available Not Available Not Available sulfamethoxa zole 800 mg-trimethop rim 160 mg tablet TAKE 1 TABLET BY MOUTH TWICE DAILY FOR 10 DAYS active Not Available Not Available No t Available hydrocodone 10 mg-acetamino phen 325 mg tablet Take 1 tablet every 8 hours by oral route as needed for 30 days. 2024 active Not Available Not Available Not Avai lable tamsulosin 0.4 mg capsule TAKE ONE CAPSULE BY MOUTH EVERY DAY; (PT MUST MAKE APPT BEFORE ADDITIONAL REFILLS) active Not Available Not Available No t Available cephalexin 500 mg capsule TAKE 1 CAPSULE BY MOUTH TWICE DAILY FOR 10 DAYS active Not Available Not Available No t Available metformin 1,000 mg tablet TAKE 1 TABLET BY MOUTH TWICE DAILY active Not Available Not Available No t Available mupirocin 2 % topical ointment use 1 application topically three times daily active Not Available Not Available No t Available OneTouch Verio test strips USE TO CHECK fasting BLOOD SUGAR ONCE DAILY active Not Available Not Available N ot Available Trulicity 1.5 mg/0.5 mL subcutaneous pen injector inject 1.5 MG (0.5 ML) subcutaneou sly WEEKLY FOR 1 MONTH active Not Available Not Available Not Available Trulicity 0.75 mg/0.5 mL subcutaneous pen injector INJECT 0.75 MG SUB-Q WEEKLY FOR 4 WEEKS active Not Available Not Available No t Available OneTouch Verio Flex Meter USE TO CHECK BLOOD SUGAR active Not Available Not Available No t Available OneTouch Delica Plus Lancet 30 gauge USE TO CHECK fasting BLOOD SUGAR ONCE DAILY active Not Available Not Available N ot Available Vitals Date Recorded Body weight Body mass index (BMI) Body height Heart rate Respiratory rate Body temperature Oxygen saturation Oxygen saturation in Arterial blood by Pulse oximetry Systolic And Diastolic Provider Name and Address Organization Details Last Updated DateTime 5 09556.9 6 g 22 kg/m2 182.88 cm 72 /min 20 /min 98.2 [degF] 98 % 98 % 124/76.99 mm[Hg] [facility] 5 14:13:30 Date Recorded Body height Body mass index (BMI) Body weight Heart rate Respiratory rate Body temperature Oxygen saturation Oxygen saturation in Arterial blood by Pulse oximetry Systolic And Diastolic Provider Name and Address Organization Details Last Updated DateTime 5 182.88 cm 21.4 kg/m2 48972.5 9 g 85 /min 18 /min 98.4 [degF] 95 % 95 % 110/58 mm[Hg] [facility] 5 12:20:42 Date Recorded Body height Body mass index (BMI) Body weight Heart rate Respiratory rate Body temperature Oxygen saturation Oxygen saturation in Arterial blood by Pulse oximetry Systolic And Diastolic Provider Name and Address Organization Details Last Updated DateTime 5 182.88 cm 21.6 kg/m2 37540.1 9 g 70 /min 16 /min 97.7 [degF] 93 % 93 % 90/66 mm[Hg] AIRAM P[facility], KeiraLDana 15:56:41 Social History None recorded. Functional Status None recorded. Mental Status None recorded. Family History Nothing Reported. Medical History No medical history recorded. Past Encounters Encounter ID Performer Location Encounter Start Date Encounter Closed Date Diagnosis/Indication Diagnosis SNOMED-CT Code Diagnosis ICD10 Code Diagnosis Note [id number] Obie Jean Carlos [facility] ([facility]) [address] [place] [address] 01/24/2025 08:16:14 01/29/2025 15:46:17 Hospital inpatient stay within past 30 days 1619133314 106 Z76.89 Fracture o f neck of femur 0050351 S72.002D Uncontroll ed type 2 diabetes mellitus 122235481 E11.65 [id number] Obie Evangelista DO [facility] ([facility]) [address] [place] [address] 01/31/2025 07:50:01 02/06/2025 06:24:41 Uncontrolled type 2 diabetes mellitus 106112920 E11.65 Chronic pain 74147001 G8 9.29 Fracture o f neck of femur 3074517 S72.002D left [id number] Obie DO Jean Carlos [facility] ([facility]) [address] [place] [address] 02/14/2025 07:55:37 02/19/2025 14:59:45 Uncontrolled type 2 diabetes mellitus 641526881 E11.65 Fracture o f neck of femur 9294433 S72.002D left Increased frequency of urination 012918846 R35.0 Health Concerns Section Related Observation LastModified by Organization Detai ls LastModified Time None Recorded Concern Status LastModified by Organization Details LastModified Time None Recorded Advance Directives Directive None Recorded Payers Insurance Date Sequence Insurance Name Policy Number Policy Capps Covered Member ID Capps Member ID Guarantor Name 02/19/2025 1 [place]/A DVANTAGE - PPO) [id number] Mariaelena Treviño [id number] Mariaelena Treviño 02/13/2025 2 [place] Mariaelena Treviño [id number] Mariaelena Treviño 02/13/2025 [place] [facility] Mariaelena Treviño [id number] Mariaelena Treviño Notes Date Note Type Note Provider Name and Address Organization Details Recorded Time 01/24/2025 text/html DiabetesReported bypatient.Duration:chr onic Control:usually well controlled Compliance:compliant with medications Obie Evangelista DO [address] [place] [address], [phone], [facility], DilanLKeiraCKeira 01/28/2025 17:14:15 01/31/2025 text/html DiabetesReported bypatient.Duration:chr onic Control:usually well controlled Compliance:compliant with medications Obie Evangelista DO [address] [place] [address], [phone], [facility], DilanLDana 02/05/2025 18:45:14 02/14/2025 text/html DiabetesReported bypatient.Duration:chr onic Control:usually well controlled Compliance:compliant with medications Obie Evangelista DO [address] [place] [address], [phone], [facility], LKeiraLKeiraCKeira 02/18/2025 14:54:57
--- OUTSIDE RECORDS SUMMARY | 2025-05-20 21:51 | XMS_ITS | Encounter Summary ---
Author Organization [facility] Address [address] [place] [address] Care Team Providers Care Bellows Filler Name Role Phone Jaylene Mccoy Primary Care Provider [phone] Encounter Details Date Type Department Care Team (Late st Contact Info) Description 02/08/2015 Ancillary Orders [facility] [address] [place] [id number] Jaylene MccoyDO [address] [place], [place] [id number] Pain (Primary Dx) Social History Tobacco Use Types Packs/Day Years Used Date Smoking Tobacco: Every Day Cigarettes Alcohol Use Standard Drinks/Week Comments Yes 0 (1 standard drink = 0.6 oz pur e alcohol) rarely Sex and Gender Information Value Date Recorded Sex Assigned at Not on file 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 No joint effusion is appreciated on the lateral views. IMPRESSION no acute abnormality seen radiographically Procedure Note Jef Li MD - 02/08/2015 PROCEDURE XR BILATERAL KNEE, three views x2, 08 February 2015 DESCRIPTION AP, oblique, and lateral views of each knee show no acute fracture, dislocation, or deformity. No joint effusion is appreciated on the lateral views. IMPRESSION no acute abnormality seen radiographically us Jaylene Mccoy DO DIAGNOSTIC IMAGING ORDERA BLES Final Result documented in this encounter Visit Diagnoses Diagnosis Pain- Primary Generalized pain Pain Generalized pain documented in this encounter Care Teams Bellows Filler Relationship Specialty Start Date End Date Jaylene Mccoy DO PCP - General Family Practice 02/08/15 documented as of this encounter
--- OUTSIDE RECORDS SUMMARY | 2025-05-20 21:51 | XMS_ITS | Encounter Summary ---
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 Gender Identity Not on file Sexual Orientation Not on file documented as of this encounter Plan of Treatment Not on file documented as of this encounter Procedures Procedure Name Priority Date/Time Associated Diagnosis Comments FLOW CYTOMETRY REPORT Routine 10/23/2008 10:00 AM SOFTWARE ASSET MANAGEMENT ANALYST PATHOLOGY Routine 10/22/2008 9:12 AM SOFTWARE ASSET MANAGEMENT ANALYST documented in this encounter Results * FLOW CYTOMETRY PANEL (10/23/2008 10:00 AM SOFTWARE ASSET MANAGEMENT ANALYST) LEUKEMIA/LYMPHOMA EVALUATION Lymph Node [facility] CLL COMMENTS Specimen: Lymph node ([id number]) Analysis: A lymphocyte screen was performed, and showed scant lymphocytes. These showed no aberrant CD5/CD19 coexpression, and no evidence of clonal kappa or lambda light chain expression. Interpretation : Negative lymphocyte screening study. No clonal B cell population identified. Scant lymphocytes present. Interpreted by: Kimi Damon. [facility] Comment: This test was developed and its performance characteristics determined by [facility]. It has not been cleared or approved by the U.S. Food and Drug Administration. The FDA has determined that such clearance or approval is not necessary. This test is used for clinical purposes. It should not be regarded as investigational or for research. This laboratory is certified under the Clinical Laboratory Improvement Amendments of 1988 (CLIA-88) as qualified to perform high complexity clinical laboratory testing. Specimen of unknown material (specimen) ENTIRE LYMPH NODE / Unknown 10/23/2008 10:00 AM SOFTWARE ASSET MANAGEMENT ANALYST 10/23/2008 11:15 AM SOFTWARE ASSET MANAGEMENT ANALYST Ludwig Gerardo Jania DO PATHOLOGY/CYTOLOGY ORDERABLES Final Result INTERFACE SYSTEM Refer to clinic/hospital department [facility] CLIA# [id number] [address] [place] [address] * PATHOLOGY (10/22/2008 9:12 AM SOFTWARE ASSET MANAGEMENT ANALYST) PATHOLOGY/CYT OLOGY REPORT [facility] Anatomic Pathology Dept [address] [place] [phone] Patient: MARIAELENA TREVIÑO Accn No: [id number] Collected: 10/22/2008 9:12:00 AM SURGICAL PATHOLOGY FINAL REPORT Diagnosis A. Soft tissue, behind left ear, excision - benign fibroadipose tissue consistent with fibrolipoma - small portion of benign skeletal muscle - no lymphoid tissue identified. Octavio Bailey M.D. (Electronically signed by) Verified: 10/24/08 DD /CEP Clinical Information Lymph node versus lymphoma behind left ear. Specimen Source ASoft Tissue, BEHIND LEFT EAR Microscopic Description Microscopic examination was performed. Gross Description Part A. Submitted in a container of saline labelled Brown, lymph node versus lymphoma is a yellowish-mora fatty soft tissue fragment measuring 2.5 x 1.8 x 1 cm. Sectioning reveals a smooth, glistening, yellowish-mora cut surface. A portion is removed for flow screen. The remaining specimen is submitted in A1-A2. DLS/TKB INTERFACE SYSTEM 10/22/2008 9:12 AM SOFTWARE ASSET MANAGEMENT ANALYST us Ludwig Dykes DO PATHOLOGY/CYTOLOGY ORDERABLES Final Result INTERFACE SYSTEM Refer to clinic/hospital department documented in this encounter Visit Diagnoses Not on filedocumented in this encounter Care Teams Tinner Helper Relationship Specialty Start Date End Date Jaylene Mccoy DO PCP - General Family Practice 02/08/15 documented as of this encounter
--- OUTSIDE RECORDS SUMMARY | 2025-05-20 21:51 | XMS_ITS | Encounter Summary ---
Author Organization [facility] Address [address] [place] [address] Care Team Providers Care Card Scraper Name Role Phone Jaylene Mccoy DO Primary Care Provider [phone] Encounter Details Date Type Department Care Team (Late st Contact Info) Description 11/30/2007 Outpatient Historical [facility] [address] [place] [address] AMBULANCE, [facility] Social History Tobacco Use Types Packs/Day Years Used Date Smoking Tobacco: Never Assessed Sex and Gender Information Value Date Recorded Sex Assigned at Not on file 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
--- OUTSIDE RECORDS SUMMARY | 2025-05-20 21:51 | XMS_ITS | Clinical Summary ---
Author Organization [facility] Address [address] [place] [address] Care Team Providers Care Steel Tester Name Role Phone Jaylene Mccoy DO Primary Care Provider [phone] Allergies No known active allergies Medications Insulin Nokomis, Disposable, (BD INSULIN PEN NEEDLE UF ORIG) 29 x 1/2 Misc Ndle by Mis.(Non-Drug; Combo Route) route. 100 Each 11 8 Active blood sugar diagnostic (ONE TOUCH ULTRA TEST) Strp by See Admin Instructions route. 100 Each 12 9 Active lovastatin (MEVACOR) 20 mg Oral tablet Take 1 Tab by mouth daily with supper. 30 Tab 5 2 Active dulaglutide (Trulicity) 0.75 mg/0.5 mL injection Inject 0.75 mg by subcutaneous injection every 7 days. 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 Gender Identity Not on file Sexual Orientation Not on file Last Filed Vital Signs Vital Sign Reading Time Taken Comments Blood Pressure 149/76 04/23/2021 11:22 AM CDT Pulse 79 04/23/2021 11:22 AM CDT Temperature 36.4 C (97.5 F) 04/23/2021 11:26 AM CDT Respiratory Rate 16 04/23/2021 11:22 AM CDT Oxygen Saturation 96% 04/23/2021 11:22 AM CDT Inhaled Oxygen Concentration - - Weight 87.1 kg (192 lb) 04/23/2021 9:13 AM CDT Height 182.9 cm (6') 04/23/2021 9:13 AM CDT Body Mass Index 26.04 04/23/2021 9:13 AM CDT Plan of Treatment Health Maintenance Due Date Last Done Comments FIT-DNA Q 3 years 1998 FIT/FOBT Q 1 year 1998 Flex Sig/CT Colonography Q 5 years 1998 ZOSTER VACCINE (1 of 2) 2003 DTAP/TDAP/TD VACCINES (1 - Tdap) 06/28/2008 06/27/20 08 DIABETES ANNUAL FOOT EXAM 03/22/2010 03/22/2009, 08/2009 PNEUMOCOCCAL VACCINE 50+ YEA RS (2 of 2 - PCV) 03/22/2010 03/22/2009 DIABETES MICROALBUMIN ANNUAL SCREEN 12/23/2010 12/23/2009, 05/13/2009, 03/22/2009 RSV VACCINE (60+ or ) (1 - Risk 60-74 years 1-dose series) 2013 LDL CHOLESTEROL ANNUAL 06/10/2013 08 2, 04/19/2012, 09/08/2011, Additional history exists DIABETES ANNUAL RETINAL EXAM 04/19/201910/2018, 07/01/2015, 01/21/2010 DIABETES HBA1C Q 6 MONTHS 01/22/20202018, 04/25/2019, 01/20/2019, Additional history exists INFLUENZA VACCINE (#1) 2025 1, 10/24/2010, 08/13/2009 COLORECTAL SCREENING 07/20/2026 07/20/2016 Colorectal Cancer Screening 07/20/2026 Medical Devices Implanted Type Area Candy Maker Device Identifier Shelf Expiration Date Model / Serial / Lot Lens Io Bi-Aspheric Softechd+20.75 - [id number] Implanted:Qty: 1 on 04/23/2021 by John Day MD at [facility] Eye Right: Eye [employer] 12/02/2022 SOFTECHD+20 .75 / [id number] / Procedures Procedure Name Priority Date/Time Associated Diagnosis Comments LDL CHOLESTEROL, DIRECT Routine 06/10/2012 9:41 AM CDT Hyperlipidemia HEMOGLOBIN A1C Routine 06/10/2012 9:41 AM CDT DM w/o complication type I (CMS/HCC) MICROALBUMIN/CREATI NINE RATIO, RANDOM UR Routine 12/23/2009 9:32 AM HOBBING PRESS OPERATOR Chronic Airway Obstruction, not Elsewhere Classified (CMS/HCC) from Last 3 Months or Most Recently Relevant to Health Maintenance Results * LDL CHOLESTEROL, DIRECT (06/10/2012 9:41 AM CDT) LDL CHOLESTEROL, DIRECT 100 58 - 100 MG/DL [facility] Comment: DIRECT LDL REFERENCE: < 100 Optimal 100 - 129 Near Optimal 130 - 159 Borderline High > 160 High Risk Blood specimen (specimen) 06/10/2012 9:41 AM CDT 06/10/2012 9:42 AM CDT us Jefferson Bhakta DO CHEMISTRY ORDERABLES Final Resu lt [facility] CLIA# [id number] [address] [place] [id number] * HEMOGLOBIN A1C (06/10/2012 9:41 AM CDT) HEMOGLOBIN A1C 6.0 4.0 - 6.0 % [facility] Comment: This test was performed on a [employer] II instrument using HPLC methodology. Blood specimen (specimen) 06/10/2012 9:41 AM CDT 06/10/2012 9:42 AM CDT Jefferson Bhakta DO CHEMISTRY ORDERABLES Final Resu lt Performing Organization Address [facility] de Phone Number [facility] CLIA# [id number] [address] [place] [address] * MICROALBUMIN/CREATININE RATIO, RANDOM UR (12/23/2009 9:32 AM HOBBING PRESS OPERATOR) MICROALBUMIN URINE 2.0 MG/DL [facility] Creatinine, Urine 66 MG/DL [facility] MICROALBUMIN/CREA T RATIO, UR 30.3 MCG/MG CREAT. [facility] Comment: NORMAL: <30 MCG/MG CREAT MICROALBUMINURIA: 30-300 MCG/MG CREAT CLINICAL ALBUMINURIA: >300 MCG/MG CREAT Blood specimen (specimen) 12/23/2009 9:32 AM HOBBING PRESS OPERATOR 12/23/2009 9:33 AM HOBBING PRESS OPERATOR Jefferson Bhakta DO URINE ORDERABLES Final Result Performing Organization Address [facility] de Phone Number INTERFACE SYSTEM Refer to clinic/hospital department [facility] CLIA# [id number] [address] [place] [address] from Last 3 Months or Most Recently Relevant to Health Maintenance Insurance MEDICAID [facility] Care Teams Steel Tester Relationship Specialty Start Date End Date Jaylene Mccoy DO PCP - General Family Practice 02/08/15
--- OUTSIDE RECORDS SUMMARY | 2025-05-20 21:51 | XMS_ITS | Encounter Summary ---
Author Organization [facility] Address [address] [place] [address] Care Team Providers Care Manager Corporate Name Role Phone Jaylene Mccoy DO Primary Care Provider [phone] Encounter Details Date Type Department Care Team (Late st Contact Info) Description 12/30/2007 Outpatient Historical [facility] Medicine [place] [address] [facility] [address] [place] [id number] Jefferson Bhakta DO NO ADDRESS ON FILE Social History Tobacco Use Types Packs/Day Years Used Date Smoking Tobacco: Never Assessed Sex and Gender Information Value Date Recorded Sex Assigned at Not on file 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 Pulse: 74. BP: 118/80. Temperature 98.6, pulse ox 97%. SUBJECTIVE: Was in the hospital after a stroke on November 24. The patient relates he is improving, gaining strength in the left arm, is starting to swallow better, presently is on a mechanical soft diet. The patient relates he is going to be walking without his walker in less than a year. REVIEW OF SYSTEMS: GI: No chronic diarrhea, constipation, nery blood in melenic stool. The patient on soft diet. The patient relates he had trouble constipation when he is in the hospital. GENITOURINARY: The patient relates he dribbles quite a bit, odor to his urine. CARDIOVASCULAR: Denies chest pain or paroxysmal nocturnal dyspnea. NEUROMUSCULAR: Left arm weakness since CVA. RESPIRATORY: Smoked three to four packs a day for as long as he can remember, has quit smoking since the stroke. SOCIAL HISTORY: . Worked in the [employer] prior to illness. OBJECTIVE: GENERAL: The patient is alert, accompanied by his son. ENT: Tympanic membranes noninjected. Nose: Nasal turbinates within normal limits. Mouth: Tongue is midline. NECK: Supple. HEART: Regular rate and rhythm. LUNGS: Clear to auscultation. ABDOMEN: Soft. EXTREMITIES: Weakness in left arm and left leg. The patient can ambulate with a quad cane. Does have partial grasp with the left hand. ASSESSMENT: 1. Cerebrovascular accident with partial hemiplegia. 2. Hyperlipidemia. 3. Hypertension. 4. Cigarette smoker, presently quit. 5. Pain in left hip since being in the hospital. PLAN: 1. Reviewed medication. Will continue present medication. 2. Recheck patient in two months. 3. Continue exercise program. Continue with physical therapy. The patient be rechecked on an as-needed basis or two months. Jefferson Bhakta D.O. [facility] Electronically Signed by Jefferson Bhakta D.O. 01/02/2008 13:49 , P, tammi , Document #: [id number] cc: P MEDICINE PHYSICIAN documented in this encounter Plan of Treatment Not on file documented as of this encounter Visit Diagnoses Not on filedocumented in this encounter Care Teams Manager Corporate Relationship Specialty Start Date End Date Jaylene Mccoy DO PCP - General Family Practice 02/08/15 documented as of this encounter
--- OUTSIDE RECORDS SUMMARY | 2025-05-20 21:51 | XMS_ITS | Encounter Summary ---
Author Organization [facility] Address [address] [place] [address] Care Team Providers Care Cigar Inspector Name Role Phone Jaylene Mccoy DO Primary Care Provider [phone] Encounter Details Date Type Department Care Team (Late st Contact Info) Description 06/07/2015 Ancillary Orders [facility] Admitting [address] [place] [id number] Yo Hunt, DPMar [address] [place] [address] Hammer toe (Primary Dx) Social History Tobacco Use Types Packs/Day Years Used Date Smoking Tobacco: Every Day Cigarettes Alcohol Use Standard Drinks/Week Comments Yes 0 (1 standard drink = 0.6 oz pur e alcohol) rarely Sex and Gender Information Value Date Recorded Sex Assigned at Not on file 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 The first interphalangeal joint is not profiled due to plantar angulation of the distal phalanx compatible with clinical history of hammertoe. No soft tissue gas or calcification is seen. IMPRESSION no acute bony changes seen Procedure Note Jef Li MD - 06/07/2015 PROCEDURE XR LEFT FOOT, 3 views, 07 June 2015 DESCRIPTION AP, oblique, and lateral views of the left foot show no acute fracture or deformity. The first interphalangeal joint is not profiled due to plantar angulation of the distal phalanx compatible with clinical history of hammertoe. No soft tissue gas or calcification is seen. IMPRESSION no acute bony changes seen us Yo Hunt DPMar DIAGNOSTIC IMAGING ORDERABLE S Final Result documented in this encounter Visit Diagnoses Diagnosis Hammer toe Other hammer toe (acquired) Hammer toe- Primary Other hammer toe (acquired) documented in this encounter Care Teams Cigar Inspector Relationship Specialty Start Date End Date Jaylene Mccoy DO PCP - General Family Practice 02/08/15 documented as of this encounter
--- OUTSIDE RECORDS SUMMARY | 2025-05-20 21:51 | XMS_ITS | Encounter Summary ---
Author Organization [facility] Address [address] [place] [address] Care Team Providers Care Principal Trainer Name Role Phone Jaylene Mccoy DO Primary Care Provider [phone] Encounter Details Date Type Department Care Team (Late st Contact Info) Description 11/29/2007 Inpatient Historical HIS IN BED Jh Poe MD [address] [place] [address] Acute, but Ill-Defined, Cerebrovascular Disease; Hemiplegia Affecting Side NOS (CMS/[facility]); Dysphasia, Late Effect of Cerebrovascular Disease; Neurological Neglect Syndrome; Candidiasis of Other Urogenital Sites; Chronic Airway Obstruction, not Elsewhere Classified (CMS/HCC); Dysphagia, Late Effect of Cerebrovascular Disease; Other Late Effects of Cerebrovascular Disease; Dysphagia, Oropharyngeal Phase; Other and Unspecified Angina Pectoris; Other and Unspecified Hyperlipidemia; Tobacco Use Disorder; Unspecified Essential Hypertension; Encounter for Long-Term (Current) Use of Insulin (CMS/[facility]); DM w/o Complication Type II ([facility]); Profound Impairment, One Eye, Impairment Level not Further Specified; Hypoxemia; Other Seborrheic Dermatitis; Abrasion Hip/Leg; Fall from Other Slipping, Tripping, or Stumbling; Place of Occurrence, [facility]idential [facility] Social History Tobacco Use Types Packs/Day Years Used Date Smoking Tobacco: Never Assessed Sex and Gender Information Value Date Recorded Sex Assigned at Not on file Legal Sex Male 6:04 AM SHEETFED PRESS OPERATOR Gender Identity Not on file Sexual Orientation Not on file documented as of this encounter Plan of Treatment Pending Results Name Type Priority Associated Diagnoses Date /Time URINE CULTURE Microbiology Routine 8 11:48 PM SHEETFED PRESS OPERATOR documented as of this encounter Procedures Procedure Name Priority Date/Time Associated Diagnosis Comments POC GLUCOSE Routine 12/22/2007 11:44 AM SHEETFED PRESS OPERATOR POC GLUCOSE Routine 12/22/2007 7:08 AM SHEETFED PRESS OPERATOR POC GLUCOSE Routine 12/21/2007 8:18 PM SHEETFED PRESS OPERATOR POC GLUCOSE Routine 12/21/2007 5:12 PM SHEETFED PRESS OPERATOR POC GLUCOSE Routine 12/21/2007 11:04 AM SHEETFED PRESS OPERATOR POC GLUCOSE Routine 12/21/2007 7:27 AM SHEETFED PRESS OPERATOR POC GLUCOSE Routine 12/20/2007 8:30 PM SHEETFED PRESS OPERATOR POC GLUCOSE Routine 12/20/2007 5:03 PM SHEETFED PRESS OPERATOR POC GLUCOSE Routine 12/20/2007 11:18 AM SHEETFED PRESS OPERATOR POC GLUCOSE Routine 12/20/2007 6:57 AM SHEETFED PRESS OPERATOR URINALYSIS W/REFLEX MICROSCOPIC Routine 12/19/2007 11:49 PM SHEETFED PRESS OPERATOR POC GLUCOSE Routine 12/19/2007 8:02 PM SHEETFED PRESS OPERATOR POC GLUCOSE Routine 12/19/2007 4:51 PM SHEETFED PRESS OPERATOR POC GLUCOSE Routine 12/19/2007 11:22 AM SHEETFED PRESS OPERATOR POC GLUCOSE Routine 12/19/2007 7:29 AM SHEETFED PRESS OPERATOR POC GLUCOSE Routine 12/18/2007 8:23 PM SHEETFED PRESS OPERATOR XR FEMUR 2 VW LEFT Routine 12/18/2007 6: 24 PM SHEETFED PRESS OPERATOR XR PELVIS 1 OR 2 VW Routine 12/18/2007 6 :24 PM SHEETFED PRESS OPERATOR POC GLUCOSE Routine 12/18/2007 4:54 PM SHEETFED PRESS OPERATOR POC GLUCOSE Routine 12/18/2007 11:41 AM SHEETFED PRESS OPERATOR POC GLUCOSE Routine 12/18/2007 6:51 AM SHEETFED PRESS OPERATOR POC GLUCOSE Routine 12/17/2007 9:30 PM SHEETFED PRESS OPERATOR POC GLUCOSE Routine 12/17/2007 5:01 PM SHEETFED PRESS OPERATOR POC GLUCOSE Routine 12/17/2007 11:30 AM SHEETFED PRESS OPERATOR POC GLUCOSE Routine 12/17/2007 5:42 AM SHEETFED PRESS OPERATOR POC GLUCOSE Routine 12/17/2007 12:21 AM SHEETFED PRESS OPERATOR POC GLUCOSE Routine 12/16/2007 5:20 PM SHEETFED PRESS OPERATOR XR SPEECH EVALUATION COMPLEX Routine 12/16/2007 2:19 PM SHEETFED PRESS OPERATOR POC GLUCOSE Routine 12/16/2007 12:06 PM SHEETFED PRESS OPERATOR CBC WITH DIFFERENTIAL Routine 12/16/2007 6:27 AM SHEETFED PRESS OPERATOR BASIC METABOLIC PANEL Routine 12/16/2007 6:27 AM SHEETFED PRESS OPERATOR POC GLUCOSE Routine 12/16/2007 5:49 AM SHEETFED PRESS OPERATOR POC GLUCOSE Routine 12/16/2007 12:13 AM SHEETFED PRESS OPERATOR POC GLUCOSE Routine 12/15/2007 5:44 PM SHEETFED PRESS OPERATOR POC GLUCOSE Routine 12/15/2007 11:56 AM SHEETFED PRESS OPERATOR POC GLUCOSE Routine 12/15/2007 5:48 AM SHEETFED PRESS OPERATOR POC GLUCOSE Routine 12/15/2007 12:25 AM SHEETFED PRESS OPERATOR POC GLUCOSE Routine 12/14/2007 8:49 PM SHEETFED PRESS OPERATOR POC GLUCOSE Routine 12/14/2007 5:10 PM SHEETFED PRESS OPERATOR POC GLUCOSE Routine 12/14/2007 12:06 PM SHEETFED PRESS OPERATOR POC GLUCOSE Routine 12/14/2007 6:23 AM SHEETFED PRESS OPERATOR POC GLUCOSE Routine 12/13/2007 8:32 PM SHEETFED PRESS OPERATOR POC GLUCOSE Routine 12/13/2007 4:25 PM SHEETFED PRESS OPERATOR POC GLUCOSE Routine 12/13/2007 11:47 AM SHEETFED PRESS OPERATOR POC GLUCOSE Routine 12/13/2007 5:21 AM SHEETFED PRESS OPERATOR POC GLUCOSE Routine 12/12/2007 11:51 PM SHEETFED PRESS OPERATOR POC GLUCOSE Routine 12/12/2007 8:14 PM SHEETFED PRESS OPERATOR POC GLUCOSE Routine 12/12/2007 8:14 PM SHEETFED PRESS OPERATOR POC GLUCOSE Routine 12/12/2007 4:26 PM SHEETFED PRESS OPERATOR POC GLUCOSE Routine 12/12/2007 4:26 PM SHEETFED PRESS OPERATOR POC GLUCOSE Routine 12/12/2007 11:46 AM SHEETFED PRESS OPERATOR POC GLUCOSE Routine 12/12/2007 11:46 AM SHEETFED PRESS OPERATOR POC GLUCOSE Routine 12/12/2007 6:56 AM SHEETFED PRESS OPERATOR POC GLUCOSE Routine 12/12/2007 6:56 AM SHEETFED PRESS OPERATOR POC GLUCOSE Routine 12/12/2007 5:41 AM SHEETFED PRESS OPERATOR POC GLUCOSE Routine 12/12/2007 5:41 AM SHEETFED PRESS OPERATOR POC GLUCOSE Routine 12/11/2007 11:48 PM SHEETFED PRESS OPERATOR POC GLUCOSE Routine 12/11/2007 11:48 PM SHEETFED PRESS OPERATOR POC GLUCOSE Routine 12/11/2007 9:34 PM SHEETFED PRESS OPERATOR POC GLUCOSE Routine 12/11/2007 5:05 PM SHEETFED PRESS OPERATOR POC GLUCOSE Routine 12/11/2007 11:53 AM SHEETFED PRESS OPERATOR POC GLUCOSE Routine 12/11/2007 5:52 AM SHEETFED PRESS OPERATOR POC GLUCOSE Routine 12/10/2007 11:18 PM SHEETFED PRESS OPERATOR POC GLUCOSE Routine 12/10/2007 5:31 PM SHEETFED PRESS OPERATOR POC GLUCOSE Routine 12/10/2007 11:38 AM SHEETFED PRESS OPERATOR POC GLUCOSE Routine 12/10/2007 5:23 AM SHEETFED PRESS OPERATOR POC GLUCOSE Routine 12/09/2007 11:19 PM SHEETFED PRESS OPERATOR POC GLUCOSE Routine 12/09/2007 7:32 PM SHEETFED PRESS OPERATOR POC GLUCOSE Routine 12/09/2007 11:39 AM SHEETFED PRESS OPERATOR POC GLUCOSE Routine 12/09/2007 5:39 AM SHEETFED PRESS OPERATOR POC GLUCOSE Routine 12/08/2007 11:24 PM SHEETFED PRESS OPERATOR POC GLUCOSE Routine 12/08/2007 5:34 PM SHEETFED PRESS OPERATOR POC GLUCOSE Routine 12/08/2007 11:00 AM SHEETFED PRESS OPERATOR POC GLUCOSE Routine 12/08/2007 5:56 AM SHEETFED PRESS OPERATOR POC GLUCOSE Routine 12/07/2007 11:22 PM SHEETFED PRESS OPERATOR POC GLUCOSE Routine 12/07/2007 5:36 PM SHEETFED PRESS OPERATOR POC GLUCOSE Routine 12/07/2007 12:07 PM SHEETFED PRESS OPERATOR XR SPEECH EVALUATION COMPLEX Routine 12/07/2007 11:13 AM SHEETFED PRESS OPERATOR POC GLUCOSE Routine 12/07/2007 5:33 AM SHEETFED PRESS OPERATOR POC GLUCOSE Routine 12/06/2007 11:36 PM SHEETFED PRESS OPERATOR POC GLUCOSE Routine 12/06/2007 4:30 PM SHEETFED PRESS OPERATOR POC GLUCOSE Routine 12/06/2007 11:29 AM SHEETFED PRESS OPERATOR POC GLUCOSE Routine 12/06/2007 6:37 AM SHEETFED PRESS OPERATOR CBC WITH DIFFERENTIAL Routine 12/06/2007 6:05 AM SHEETFED PRESS OPERATOR POC GLUCOSE Routine 12/06/2007 12:04 AM SHEETFED PRESS OPERATOR POC GLUCOSE Routine 12/05/2007 4:51 PM SHEETFED PRESS OPERATOR POC GLUCOSE Routine 12/05/2007 11:57 AM SHEETFED PRESS OPERATOR POC GLUCOSE Routine 12/05/2007 6:38 AM SHEETFED PRESS OPERATOR POC GLUCOSE Routine 12/05/2007 5:28 AM SHEETFED PRESS OPERATOR POC GLUCOSE Routine 12/04/2007 11:33 PM SHEETFED PRESS OPERATOR POC GLUCOSE Routine 12/04/2007 4:49 PM SHEETFED PRESS OPERATOR POC GLUCOSE Routine 12/04/2007 10:58 AM SHEETFED PRESS OPERATOR POC GLUCOSE Routine 12/04/2007 5:13 AM SHEETFED PRESS OPERATOR POC GLUCOSE Routine 12/03/2007 11:37 PM SHEETFED PRESS OPERATOR POC GLUCOSE Routine 12/03/2007 5:06 PM SHEETFED PRESS OPERATOR POC GLUCOSE Routine 12/03/2007 10:54 AM SHEETFED PRESS OPERATOR POC GLUCOSE Routine 12/03/2007 5:16 AM SHEETFED PRESS OPERATOR POC GLUCOSE Routine 12/02/2007 11:21 PM SHEETFED PRESS OPERATOR ICTOTEST Routine 12/02/2007 9:18 PM SHEETFED PRESS OPERATOR URINALYSIS W/REFLEX MICROSCOPIC Routine 12/02/2007 9:18 PM SHEETFED PRESS OPERATOR POC GLUCOSE Routine 12/02/2007 5:21 PM SHEETFED PRESS OPERATOR POC GLUCOSE Routine 12/02/2007 11:17 AM SHEETFED PRESS OPERATOR POC GLUCOSE Routine 12/02/2007 8:37 AM SHEETFED PRESS OPERATOR POC GLUCOSE Routine 12/02/2007 5:37 AM SHEETFED PRESS OPERATOR POC GLUCOSE Routine 12/01/2007 11:57 PM SHEETFED PRESS OPERATOR POC GLUCOSE Routine 12/01/2007 4:53 PM SHEETFED PRESS OPERATOR POC GLUCOSE Routine 12/01/2007 10:48 AM SHEETFED PRESS OPERATOR POC GLUCOSE Routine 12/01/2007 5:37 AM SHEETFED PRESS OPERATOR ICTOTEST Routine 12/01/2007 3:37 AM SHEETFED PRESS OPERATOR GLUCOSE URINALYSIS, QUALITATIVE Routine 12/01/2007 3:37 AM SHEETFED PRESS OPERATOR URINALYSIS MICROSCOPY ONLY Routine 12/01/2007 3:37 AM SHEETFED PRESS OPERATOR KETONE, QUALITATIVE, URINE Routine 12/01/2007 3:37 AM SHEETFED PRESS OPERATOR URINALYSIS W/REFLEX MICROSCOPIC Routine 12/01/2007 3:37 AM SHEETFED PRESS OPERATOR POC GLUCOSE Routine 11/30/2007 11:50 PM SHEETFED PRESS OPERATOR POC BLOOD GAS, LYTES AND H+H Routine 11/30/2007 7:30 PM SHEETFED PRESS OPERATOR POC GLUCOSE Routine 11/30/2007 4:48 PM SHEETFED PRESS OPERATOR POC GLUCOSE Routine 11/30/2007 11:44 AM SHEETFED PRESS OPERATOR CBC WITH DIFFERENTIAL Routine 11/30/2007 6:15 AM SHEETFED PRESS OPERATOR VITAMIN B12 LEVEL Routine 11/30/2007 6:1 5 AM SHEETFED PRESS OPERATOR COMPREHENSIVE METABOLIC PANEL Routine 11/30/2007 6:15 AM SHEETFED PRESS OPERATOR POC GLUCOSE Routine 11/30/2007 5:36 AM SHEETFED PRESS OPERATOR POC GLUCOSE Routine 11/29/2007 11:59 PM SHEETFED PRESS OPERATOR XR HIP 2 OR 3 VIEWS LT Routine 7:13 PM SHEETFED PRESS OPERATOR documented in this encounter Results * (ABNORMAL) POC GLUCOSE (12/22/2007 11:44 AM SHEETFED PRESS OPERATOR) GLUCOSE POC 119(H) 60 - 100 mg/dL [facility] Capillary blood specimen (specimen) 12/22/2007 11:44 AM SHEETFED PRESS OPERATOR 12/22/2007 11:40 PM SHEETFED PRESS OPERATOR Jh Poe MD POINT OF CARE TESTING Final Resu lt Performing Organization Address [facility] Co de Phone Number [facility] [address] [place] [address] * (ABNORMAL) POC GLUCOSE (12/22/2007 7:08 AM SHEETFED PRESS OPERATOR) GLUCOSE POC 111(H) 60 - 100 mg/dL [facility] Capillary blood specimen (specimen) 12/22/2007 7:08 AM SHEETFED PRESS OPERATOR 12/22/2007 11:40 PM SHEETFED PRESS OPERATOR Jh Poe MD POINT OF CARE TESTING Final Resu lt Performing Organization Address [facility] Co de Phone Number [facility] [address] [place] [address] * (ABNORMAL) POC GLUCOSE (12/21/2007 8:18 PM SHEETFED PRESS OPERATOR) GLUCOSE POC 117(H) 60 - 100 mg/dL [facility] Capillary blood specimen (specimen) 12/21/2007 8:18 PM SHEETFED PRESS OPERATOR 12/21/2007 11:37 PM SHEETFED PRESS OPERATOR Jh Poe MD POINT OF CARE TESTING Final Resu lt Performing Organization Address [facility] de Phone Number [facility] [address] [place] [address] * POC GLUCOSE (12/21/2007 5:12 PM SHEETFED PRESS OPERATOR) GLUCOSE POC 84 60 - 100 mg/dL [facility] Capillary blood specimen (specimen) 12/21/2007 5:12 PM SHEETFED PRESS OPERATOR 12/21/2007 11:36 PM SHEETFED PRESS OPERATOR Jh Poe MD POINT OF CARE TESTING Final Resu lt Performing Organization Address [facility] Phone Number [facility] [address] [place] [address] * (ABNORMAL) POC GLUCOSE (12/21/2007 11:04 AM SHEETFED PRESS OPERATOR) GLUCOSE POC 117(H) 60 - 100 mg/dL [facility] Capillary blood specimen (specimen) 12/21/2007 11:04 AM SHEETFED PRESS OPERATOR 12/21/2007 11:36 PM SHEETFED PRESS OPERATOR Jh Poe MD POINT OF CARE TESTING Final Resu lt Performing Organization Address [facility] de Phone Number [facility] [address] [place] [address] * (ABNORMAL) POC GLUCOSE (12/21/2007 7:27 AM SHEETFED PRESS OPERATOR) GLUCOSE POC 107(H) 60 - 100 mg/dL [facility] Capillary blood specimen (specimen) 12/21/2007 7:27 AM SHEETFED PRESS OPERATOR 12/21/2007 11:40 PM SHEETFED PRESS OPERATOR Jh Poe MD POINT OF CARE TESTING Final Resu lt Performing Organization Address [facility] Co de Phone Number [facility] [address] [place] [address] * (ABNORMAL) POC GLUCOSE (12/20/2007 8:30 PM SHEETFED PRESS OPERATOR) GLUCOSE POC 134(H) 60 - 100 mg/dL [facility] Capillary blood specimen (specimen) 12/20/2007 8:30 PM SHEETFED PRESS OPERATOR 12/21/2007 12:44 AM SHEETFED PRESS OPERATOR Jh Poe MD POINT OF CARE TESTING Final Resu lt Performing Organization Address [facility] de Phone Number [facility] [address] [place] [address] * POC GLUCOSE (12/20/2007 5:03 PM SHEETFED PRESS OPERATOR) GLUCOSE POC 90 60 - 100 mg/dL [facility] Capillary blood specimen (specimen) 12/20/2007 5:03 PM SHEETFED PRESS OPERATOR 12/21/2007 12:44 AM SHEETFED PRESS OPERATOR Jh Poe MD POINT OF CARE TESTING Final Resu lt Performing Organization Address [facility] Phone Number [facility] [address] [place] [address] * (ABNORMAL) POC GLUCOSE (12/20/2007 11:18 AM SHEETFED PRESS OPERATOR) GLUCOSE POC 133(H) 60 - 100 mg/dL [facility] Capillary blood specimen (specimen) 12/20/2007 11:18 AM SHEETFED PRESS OPERATOR 12/21/2007 12:38 AM SHEETFED PRESS OPERATOR Jh Poe MD POINT OF CARE TESTING Final Resu lt Performing Organization Address [facility] Phone Number [facility] [address] [place] [address] * (ABNORMAL) POC GLUCOSE (12/20/2007 6:57 AM SHEETFED PRESS OPERATOR) COMMENT POC Follow Protocol [facility] GLUCOSE POC 106(H) 60 - 100 mg/dL [facility] Capillary blood specimen (specimen) 12/20/2007 6:57 AM SHEETFED PRESS OPERATOR 12/21/2007 12:37 AM SHEETFED PRESS OPERATOR Jh Poe MD POINT OF CARE TESTING Final Resu lt Performing Organization Address [facility] de Phone Number [facility] [address] [place] [address] * (ABNORMAL) URINALYSIS (12/19/2007 11:49 PM SHEETFED PRESS OPERATOR) UROBILINOGEN UA 0.2 0.2 [facility] CLARITY UA Clear Clear [facility] SPECIFIC GRAVITY UA >=1.030(A) <=1.005 [facility] GLUCOSE UA 250 mg/dl(A) NEGATIVE [facility] PH UA 5.5 5.0 - 9.0 [facility] BILIRUBIN UA NEGATIVE NEGATIVE [facility] LEUKOCYTE ESTERASE UA NEGATIVE NEGATIVE [facility] KETONES UA NEGATIVE NEGATIVE [facility] MICRO EXAM No No [facility] COLOR UA Yellow Straw [facility] PROTEIN UA NEGATIVE NEGATIVE [facility] BLOOD UA NEGATIVE NEGATIVE [facility] NITRITE UA NEGATIVE NEGATIVE [facility] Urine specimen (specimen) 12/19/2007 11:49 PM SHEETFED PRESS OPERATOR 12/19/2007 11:55 PM SHEETFED PRESS OPERATOR us Jh Poe MD URINE ORDERABLES Final Result Performing Organization Address [facility] de Phone Number [facility] [address] [place] [address] * (ABNORMAL) POC GLUCOSE (12/19/2007 8:02 PM SHEETFED PRESS OPERATOR) GLUCOSE POC 145(H) 60 - 100 mg/dL [facility] Capillary blood specimen (specimen) 12/19/2007 8:02 PM SHEETFED PRESS OPERATOR 12/20/2007 1:17 AM SHEETFED PRESS OPERATOR Jh Poe MD POINT OF CARE TESTING Final Resu lt Performing Organization Address [facility] de Phone Number [facility] [address] [place] [address] * (ABNORMAL) POC GLUCOSE (12/19/2007 4:51 PM SHEETFED PRESS OPERATOR) GLUCOSE POC 115(H) 60 - 100 mg/dL [facility] Capillary blood specimen (specimen) 12/19/2007 4:51 PM SHEETFED PRESS OPERATOR 12/20/2007 1:17 AM SHEETFED PRESS OPERATOR Jh Poe MD POINT OF CARE TESTING Final Resu lt Performing Organization Address [facility] Co de Phone Number [facility] [address] [place] [address] * (ABNORMAL) POC GLUCOSE (12/19/2007 11:22 AM SHEETFED PRESS OPERATOR) GLUCOSE POC 120(H) 60 - 100 mg/dL [facility] Capillary blood specimen (specimen) 12/19/2007 11:22 AM SHEETFED PRESS OPERATOR 12/20/2007 1:32 AM SHEETFED PRESS OPERATOR Jh Poe MD POINT OF CARE TESTING Final Resu lt Performing Organization Address [facility] Co de Phone Number [facility] [address] [place] [address] * (ABNORMAL) POC GLUCOSE (12/19/2007 7:29 AM SHEETFED PRESS OPERATOR) GLUCOSE POC 120(H) 60 - 100 mg/dL [facility] Capillary blood specimen (specimen) 12/19/2007 7:29 AM SHEETFED PRESS OPERATOR 12/20/2007 1:17 AM SHEETFED PRESS OPERATOR Jh Poe MD POINT OF CARE TESTING Final Resu lt Performing Organization Address [facility] Co de Phone Number [facility] [address] [place] [address] * (ABNORMAL) POC GLUCOSE (12/18/2007 8:23 PM SHEETFED PRESS OPERATOR) GLUCOSE POC 130(H) 60 - 100 mg/dL [facility] Capillary blood specimen (specimen) 12/18/2007 8:23 PM SHEETFED PRESS OPERATOR 12/19/2007 3:42 AM SHEETFED PRESS OPERATOR Jh Poe MD POINT OF CARE TESTING Final Resu lt [facility] [place] [address] * XR PELVIS 1 OR 2 VW (12/18/2007 6:24 PM SHEETFED PRESS OPERATOR) Anatomical Region Laterality Modality Pelvis Other 12/18/2007 6:24 PM SHEETFED PRESS OPERATOR Narrative 12/18/2007 6:24 PM SHEETFED PRESS OPERATOR LEFT HIP AND PELVIS: 12/18/2007 CLINICAL INFORMATION: Fall. Rule out fracture. FINDINGS: Left hip joint is unremarkable. There is minimal osteophyte at the right hip with joint space maintenance. Residual contrast present in the distal colon. Degenerative changes noted in the spine. Remainder of the bony pelvis is intact. IMPRESSION: No acute pathology. cgf: Procedure Note Sean Griffin E - 12/20/2007 LEFT HIP AND PELVIS: 12/18/2007 CLINICAL INFORMATION: Fall. Rule out fracture. FINDINGS: Left hip joint is unremarkable. There is minimal osteophyte atthe right hip with joint space maintenance. Residual contrast present in the distal colon.Degenerative changes noted in the spine. Remainder of the bony pelvis is intact. IMPRESSION: No acute pathology. cgf: Jh Poe MD DIAGNOSTIC IMAGING ORDERABLES Fi nal Result * XR FEMUR 2 VW LEFT (12/18/2007 6:24 PM SHEETFED PRESS OPERATOR) Anatomical Region Laterality Modality Lower Extremity Other 12/18/2007 6:24 PM SHEETFED PRESS OPERATOR Narrative 12/18/2007 6:24 PM SHEETFED PRESS OPERATOR LEFT FEMUR: 12/18/2007 CLINICAL INFORMATION: Rule out fracture. FINDINGS: Bones and joint spaces are intact. No fracture is seen. No joint effusion seen in the knee. Residual contrast material noted in the colon at the margin of this exam. IMPRESSION: No acute pathology. cgf: Procedure Note Sean Griffin Bernie - 12/20/2007 LEFT FEMUR: 12/18/2007 CLINICAL INFORMATION: Rule out fracture. FINDINGS: Bones and joint spaces are intact. No fracture is seen. Nojoint effusion seen in the knee. Residual contrast material noted in the colon at the margin of this exam. IMPRESSION: No acute pathology. cgf: Jh Poe MD DIAGNOSTIC IMAGING ORDERABLES Fi nal Result * (ABNORMAL) POC GLUCOSE (12/18/2007 4:54 PM SHEETFED PRESS OPERATOR) GLUCOSE POC 105(H) 60 - 100 mg/dL [facility] Capillary blood specimen (specimen) 12/18/2007 4:54 PM SHEETFED PRESS OPERATOR 12/19/2007 3:42 AM SHEETFED PRESS OPERATOR Jh Poe MD POINT OF CARE TESTING Final Resu lt Performing Organization Address [facility] de Phone Number [facility] [address] [place] [address] * (ABNORMAL) POC GLUCOSE (12/18/2007 11:41 AM SHEETFED PRESS OPERATOR) GLUCOSE POC 115(H) 60 - 100 mg/dL [facility] Capillary blood specimen (specimen) 12/18/2007 11:41 AM SHEETFED PRESS OPERATOR 12/19/2007 3:42 AM SHEETFED PRESS OPERATOR Jh Poe MD POINT OF CARE TESTING Final Resu lt Performing Organization Address [facility] de Phone Number [facility] [address] [place] [address] * (ABNORMAL) POC GLUCOSE (12/18/2007 6:51 AM SHEETFED PRESS OPERATOR) GLUCOSE POC 112(H) 60 - 100 mg/dL [facility] Capillary blood specimen (specimen) 12/18/2007 6:51 AM SHEETFED PRESS OPERATOR 12/19/2007 3:42 AM SHEETFED PRESS OPERATOR us Jh Poe MD POINT OF CARE TESTING Final Resu lt Performing Organization Address [facility] Phone Number [facility] [address] [place] [address] * POC GLUCOSE (12/17/2007 9:30 PM SHEETFED PRESS OPERATOR) GLUCOSE POC 83 60 - 100 mg/dL [facility] Capillary blood specimen (specimen) 12/17/2007 9:30 PM SHEETFED PRESS OPERATOR 12/18/2007 2:30 AM SHEETFED PRESS OPERATOR us Jh Poe MD POINT OF CARE TESTING Final Resu lt Performing Organization Address [facility] Phone Number [facility] [address] [place] [address] * POC GLUCOSE (12/17/2007 5:01 PM SHEETFED PRESS OPERATOR) GLUCOSE POC 80 60 - 100 mg/dL [facility] Capillary blood specimen (specimen) 12/17/2007 5:01 PM SHEETFED PRESS OPERATOR 12/18/2007 2:26 AM SHEETFED PRESS OPERATOR us Jh Poe MD POINT OF CARE TESTING Final Resu lt Performing Organization Address [facility] Phone Number [facility] [address] [place] [address] * (ABNORMAL) POC GLUCOSE (12/17/2007 11:30 AM SHEETFED PRESS OPERATOR) GLUCOSE POC 112(H) 60 - 100 mg/dL [facility] Capillary blood specimen (specimen) 12/17/2007 11:30 AM SHEETFED PRESS OPERATOR 12/18/2007 2:30 AM SHEETFED PRESS OPERATOR us Jh Poe MD POINT OF CARE TESTING Final Resu lt Performing Organization Address [facility] de Phone Number [facility] [address] [place] [address] * (ABNORMAL) POC GLUCOSE (12/17/2007 5:42 AM SHEETFED PRESS OPERATOR) GLUCOSE POC 119(H) 60 - 100 mg/dL [facility] Capillary blood specimen (specimen) 12/17/2007 5:42 AM SHEETFED PRESS OPERATOR 12/18/2007 2:26 AM SHEETFED PRESS OPERATOR Jh Poe MD POINT OF CARE TESTING Final Resu lt Performing Organization Address [facility] Phone Number [facility] [address] [place] [address] * (ABNORMAL) POC GLUCOSE (12/17/2007 12:21 AM SHEETFED PRESS OPERATOR) GLUCOSE POC 160(H) 60 - 100 mg/dL [facility] Capillary blood specimen (specimen) 12/17/2007 12:21 AM SHEETFED PRESS OPERATOR 12/18/2007 2:29 AM SHEETFED PRESS OPERATOR Jh Poe MD POINT OF CARE TESTING Final Resu lt Performing Organization Address [facility] Phone Number [facility] [address] [place] [address] * POC GLUCOSE (12/16/2007 5:20 PM SHEETFED PRESS OPERATOR) GLUCOSE POC 98 60 - 100 mg/dL [facility] Capillary blood specimen (specimen) 12/16/2007 5:20 PM SHEETFED PRESS OPERATOR 12/16/2007 11:42 PM SHEETFED PRESS OPERATOR Jh Poe MD POINT OF CARE TESTING Final Resu lt Performing Organization Address [facility] de Phone Number [facility] [address] [place] [address] * XR SPEECH EVALUATION COMPLEX (12/16/2007 2:19 PM SHEETFED PRESS OPERATOR) Anatomical Region Laterality Modality Other 12/16/2007 2:19 PM SHEETFED PRESS OPERATOR Narrative 12/16/2007 3:16 PM SHEETFED PRESS OPERATOR Fluoroscopy was used for performance of video swallow study. For further details, please see speech pathology report. - Procedure Note Octavio Young Jr. - 12/16/2007 Fluoroscopy was used for performance of video swallow study. For furtherdetails, please see speech pathology report. - us Jh Poe MD DIAGNOSTIC IMAGING ORDERABLES Fi nal Result * (ABNORMAL) POC GLUCOSE (12/16/2007 12:06 PM SHEETFED PRESS OPERATOR) GLUCOSE POC 154(H) 60 - 100 mg/dL [facility] Capillary blood specimen (specimen) 12/16/2007 12:06 PM SHEETFED PRESS OPERATOR 12/16/2007 11:41 PM SHEETFED PRESS OPERATOR us Jh Poe MD POINT OF CARE TESTING Final Resu lt Performing Organization Address City/State/[facility] Co de Phone Number [facility] [address] [place] [address] * (ABNORMAL) BASIC METABOLIC PANEL (12/16/2007 6:27 AM SHEETFED PRESS OPERATOR) POTASSIUM 4.3 3.5 - 5.0 mEq/L [facility] CALCIUM 9.3 8.4 - 10.5 mg/dL [facility] CREATININE 0.7 0.7 - 1.5 mg/dL [facility] CHLORIDE 103 95 - 110 mEq/L [facility] GLUCOSE 146(H) 70 - 110 mg/dL [facility] ANION GAP 13 9 - 20 mEq/L [facility] SODIUM 138 136 - 145 mEq/L [facility] CO2 26 22 - 32 mmol/l [facility] BUN 13 9 - 20 mg/dL [facility] OSMOLALITY, CALCULATED 287 275 - 295 mOsm/Kg [facility] Blood specimen (specimen) 12/16/2007 6:27 AM SHEETFED PRESS OPERATOR 12/16/2007 6:42 AM SHEETFED PRESS OPERATOR us Jh Poe MD CHEMISTRY ORDERABLES Final Resul t [facility] [address] [place] [address] * (ABNORMAL) CBC WITH DIFFERENTIAL (12/16/2007 6:27 AM SHEETFED PRESS OPERATOR) RBC 5.21 4.60 - 6.20 Mil/ul [facility] MCHC 34.5 30.0 - 35.0 g/dL [facility] LYMPHOCYTE ABSOLUTE 1.5 1.2 - 4.0 K/ul [facility] LYMPHOCYTES 20.7(L) 24.0 - 44.0 % [facility] MCV 87.9 84.0 - 103.0 Fl [facility] BASOPHILS 0.3 0.0 - 1.0 % [facility] MPV 11.9 8.9 - 12.8 Fl [facility] BASOPHILS ABSOLUTE 0.0 0.0 - 0.2 K/ul [facility] HEMOGLOBIN 15.8 14.0 - 18.0 g/dL [facility] MONOCYTES 8.2 2.0 - 10.0 % [facility] RDW 12.3 11.0 - 14.5 % [facility] MONOCYTE ABSOLUTE 0.6 0.1 - 0.6 K/ul [facility] WBC 7.4 4.8 - 10.8 K/ul [facility] NEUTROPHILS 68.6 42.2 - 75.2 % [facility] MCH 30.3 27.0 - 34.0 pg [facility] NEUTROPHIL ABSOLUTE 5.1 2.0 - 8.0 K/ul [facility] HEMATOCRIT 45.8 41.0 - 53.0 % [facility] PLATELETS 129(L) 140 - 440 K/ul [facility] EOSINOPHIL ABSOLUTE 0.2 0.0 - 0.7 K/ul [facility] EOSINOPHILS 2.2 0.0 - 7.0 % [facility] Blood specimen (specimen) 12/16/2007 6:27 AM SHEETFED PRESS OPERATOR 12/16/2007 6:42 AM SHEETFED PRESS OPERATOR Jh Poe MD HEMATOLOGY ORDERABLES Final Resu lt Performing Organization Address [facility] Phone Number [facility] [address] [place] [address] * (ABNORMAL) POC GLUCOSE (12/16/2007 5:49 AM SHEETFED PRESS OPERATOR) GLUCOSE POC 161(H) 60 - 100 mg/dL [facility] Capillary blood specimen (specimen) 12/16/2007 5:49 AM SHEETFED PRESS OPERATOR 12/16/2007 11:50 PM SHEETFED PRESS OPERATOR Jh Poe MD POINT OF CARE TESTING Final Resu lt Performing Organization Address [facility] Phone Number [facility] [address] [place] [address] * (ABNORMAL) POC GLUCOSE (12/16/2007 12:13 AM SHEETFED PRESS OPERATOR) GLUCOSE POC 130(H) 60 - 100 mg/dL [facility] Capillary blood specimen (specimen) 12/16/2007 12:13 AM SHEETFED PRESS OPERATOR 12/16/2007 11:50 PM SHEETFED PRESS OPERATOR Jh Poe MD POINT OF CARE TESTING Final Resu lt Performing Organization Address [facility] Phone Number [facility] [address] [place] [address] * (ABNORMAL) POC GLUCOSE (12/15/2007 5:44 PM SHEETFED PRESS OPERATOR) GLUCOSE POC 107(H) 60 - 100 mg/dL [facility] Capillary blood specimen (specimen) 12/15/2007 5:44 PM SHEETFED PRESS OPERATOR 12/15/2007 10:52 PM SHEETFED PRESS OPERATOR Jh Poe MD POINT OF CARE TESTING Final Resu lt Performing Organization Address [facility] de Phone Number [facility] [address] [place] [address] * (ABNORMAL) POC GLUCOSE (12/15/2007 11:56 AM SHEETFED PRESS OPERATOR) GLUCOSE POC 180(H) 60 - 100 mg/dL [facility] Capillary blood specimen (specimen) 12/15/2007 11:56 AM SHEETFED PRESS OPERATOR 12/15/2007 10:51 PM SHEETFED PRESS OPERATOR Jh Poe MD POINT OF CARE TESTING Final Resu lt Performing Organization Address [facility] Co de Phone Number [facility] [address] [place] [address] * (ABNORMAL) POC GLUCOSE (12/15/2007 5:48 AM SHEETFED PRESS OPERATOR) COMMENT POC Notify [facility] GLUCOSE POC 174(H) 60 - 100 mg/dL [facility] Capillary blood specimen (specimen) 12/15/2007 5:48 AM SHEETFED PRESS OPERATOR 12/15/2007 10:54 PM SHEETFED PRESS OPERATOR Jh Poe MD POINT OF CARE TESTING Final Resu Performing Organization Address [facility] Co de Phone Number [facility] [address] [place] [address] * (ABNORMAL) POC GLUCOSE (12/15/2007 12:25 AM SHEETFED PRESS OPERATOR) GLUCOSE POC 143(H) 60 - 100 mg/dL [facility] Capillary blood specimen (specimen) 12/15/2007 12:25 AM SHEETFED PRESS OPERATOR 12/15/2007 10:51 PM SHEETFED PRESS OPERATOR Jh Poe MD POINT OF CARE TESTING Final Resu lt Performing Organization Address [facility] Co de Phone Number [facility] [address] [place] [address] * (ABNORMAL) POC GLUCOSE (12/14/2007 8:49 PM SHEETFED PRESS OPERATOR) GLUCOSE POC 124(H) 60 - 100 mg/dL [facility] Capillary blood specimen (specimen) 12/14/2007 8:49 PM SHEETFED PRESS OPERATOR 12/14/2007 10:25 PM SHEETFED PRESS OPERATOR Jh Poe MD POINT OF CARE TESTING Final Resu lt Performing Organization Address [facility] Phone Number [facility] [address] [place] [address] * POC GLUCOSE (12/14/2007 5:10 PM SHEETFED PRESS OPERATOR) GLUCOSE POC 97 60 - 100 mg/dL [facility] Capillary blood specimen (specimen) 12/14/2007 5:10 PM SHEETFED PRESS OPERATOR 12/14/2007 10:25 PM SHEETFED PRESS OPERATOR Jh Poe MD POINT OF CARE TESTING Final Resu lt Performing Organization Address [facility] Phone Number [facility] [address] [place] [address] * (ABNORMAL) POC GLUCOSE (12/14/2007 12:06 PM SHEETFED PRESS OPERATOR) GLUCOSE POC 136(H) 60 - 100 mg/dL [facility] Capillary blood specimen (specimen) 12/14/2007 12:06 PM SHEETFED PRESS OPERATOR 12/14/2007 10:25 PM SHEETFED PRESS OPERATOR Jh Poe MD POINT OF CARE TESTING Final Resu lt Performing Organization Address [facility] Number [facility] [address] [place] [address] * (ABNORMAL) POC GLUCOSE (12/14/2007 6:23 AM SHEETFED PRESS OPERATOR) GLUCOSE POC 167(H) 60 - 100 mg/dL [facility] Capillary blood specimen (specimen) 12/14/2007 6:23 AM SHEETFED PRESS OPERATOR 12/14/2007 10:24 PM SHEETFED PRESS OPERATOR Jh Poe MD POINT OF CARE TESTING Final Resu lt Performing Organization Address [facility] de Phone Number [facility] [address] [place] [address] * (ABNORMAL) POC GLUCOSE (12/13/2007 8:32 PM SHEETFED PRESS OPERATOR) GLUCOSE POC 102(H) 60 - 100 mg/dL [facility] Capillary blood specimen (specimen) 12/13/2007 8:32 PM SHEETFED PRESS OPERATOR 12/13/2007 9:37 PM SHEETFED PRESS OPERATOR us Jh Poe MD POINT OF CARE TESTING Final Resu lt Performing Organization Address [facility] de Phone Number [facility] [address] [place] [address] * POC GLUCOSE (12/13/2007 4:25 PM SHEETFED PRESS OPERATOR) GLUCOSE POC 89 60 - 100 mg/dL [facility] Capillary blood specimen (specimen) 12/13/2007 4:25 PM SHEETFED PRESS OPERATOR 12/13/2007 9:37 PM SHEETFED PRESS OPERATOR us Jh Poe MD POINT OF CARE TESTING Final Resu lt Performing Organization Address [facility] de Phone Number [facility] [address] [place] [address] * (ABNORMAL) POC GLUCOSE (12/13/2007 11:47 AM SHEETFED PRESS OPERATOR) GLUCOSE POC 140(H) 60 - 100 mg/dL [facility] Capillary blood specimen (specimen) 12/13/2007 11:47 AM SHEETFED PRESS OPERATOR 12/13/2007 9:37 PM SHEETFED PRESS OPERATOR Jh Poe MD POINT OF CARE TESTING Final Resu lt Performing Organization Address [facility] de Phone Number [facility] [address] [place] [address] * (ABNORMAL) POC GLUCOSE (12/13/2007 5:21 AM SHEETFED PRESS OPERATOR) GLUCOSE POC 171(H) 60 - 100 mg/dL [facility] Capillary blood specimen (specimen) 12/13/2007 5:21 AM SHEETFED PRESS OPERATOR 12/13/2007 9:37 PM SHEETFED PRESS OPERATOR us Jh Poe MD POINT OF CARE TESTING Final Resu lt Performing Organization Address [facility] de Phone Number [facility] [address] [place] [address] * (ABNORMAL) POC GLUCOSE (12/12/2007 11:51 PM SHEETFED PRESS OPERATOR) GLUCOSE POC 110(H) 60 - 100 mg/dL [facility] Capillary blood specimen (specimen) 12/12/2007 11:51 PM SHEETFED PRESS OPERATOR 12/13/2007 9:37 PM SHEETFED PRESS OPERATOR us Jh Poe MD POINT OF CARE TESTING Final Resu lt Performing Organization Address [facility] Phone Number [facility] [address] [place] [address] * (ABNORMAL) POC GLUCOSE (12/12/2007 8:14 PM SHEETFED PRESS OPERATOR) GLUCOSE POC 128(H) 60 - 100 mg/dL [facility] 12/12/2007 8:14 PM SHEETFED PRESS OPERATOR us Jh Poe MD POINT OF CARE TESTING Edited Performing Organization Address [facility] de Phone Number INTERFACE SYSTEM Refer to clinic/hospital department * (ABNORMAL) POC GLUCOSE (12/12/2007 8:14 PM SHEETFED PRESS OPERATOR) GLUCOSE POC 128(H) 60 - 100 mg/dL [facility] Blood specimen (specimen) 12/12/2007 8:14 PM SHEETFED PRESS OPERATOR 12/12/2007 11:14 PM SHEETFED PRESS OPERATOR us Jh Poe MD POINT OF CARE TESTING Final Resu lt Performing Organization Address [facility] de Phone Number [facility] [address] [place] [address] * POC GLUCOSE (12/12/2007 4:26 PM SHEETFED PRESS OPERATOR) GLUCOSE POC 67 60 - 100 mg/dL [facility] 12/12/2007 4:26 PM SHEETFED PRESS OPERATOR Jh Poe MD POINT OF CARE TESTING Edited Performing Organization Address [facility] Phone Number INTERFACE SYSTEM Refer to clinic/hospital department * POC GLUCOSE (12/12/2007 4:26 PM SHEETFED PRESS OPERATOR) GLUCOSE POC 67 60 - 100 mg/dL [facility] Blood specimen (specimen) 12/12/2007 4:26 PM SHEETFED PRESS OPERATOR 12/12/2007 11:14 PM SHEETFED PRESS OPERATOR us Jh Poe MD POINT OF CARE TESTING Final Resu lt Performing Organization Address [facility] Phone Number [facility] [address] [place] [address] * (ABNORMAL) POC GLUCOSE (12/12/2007 11:46 AM SHEETFED PRESS OPERATOR) GLUCOSE POC 161(H) 60 - 100 mg/dL [facility] 12/12/2007 11:4 6 AM SHEETFED PRESS OPERATOR us Jh Poe MD POINT OF CARE TESTING Edited Performing Organization Address [facility] Phone Number INTERFACE SYSTEM Refer to clinic/hospital department * (ABNORMAL) POC GLUCOSE (12/12/2007 11:46 AM SHEETFED PRESS OPERATOR) GLUCOSE POC 161(H) 60 - 100 mg/dL [facility] Blood specimen (specimen) 12/12/2007 11:46 AM SHEETFED PRESS OPERATOR 12/12/2007 11:17 PM SHEETFED PRESS OPERATOR us Jh Poe MD POINT OF CARE TESTING Final Resu lt Performing Organization Address [facility] de Phone Number [facility] [address] [place] [address] * (ABNORMAL) POC GLUCOSE (12/12/2007 6:56 AM SHEETFED PRESS OPERATOR) GLUCOSE POC 145(H) 60 - 100 mg/dL [facility] 12/12/2007 6:56 AM SHEETFED PRESS OPERATOR us Jh Poe MD POINT OF CARE TESTING Edited Performing Organization Address [facility] Phone Number INTERFACE SYSTEM Refer to clinic/hospital department * (ABNORMAL) POC GLUCOSE (12/12/2007 6:56 AM SHEETFED PRESS OPERATOR) GLUCOSE POC 145(H) 60 - 100 mg/dL [facility] Blood specimen (specimen) 12/12/2007 6:56 AM SHEETFED PRESS OPERATOR 12/12/2007 11:14 PM SHEETFED PRESS OPERATOR Jh Poe MD POINT OF CARE TESTING Final Resu lt Performing Organization Address [facility] Phone Number [facility] [address] [place] [address] * (ABNORMAL) POC GLUCOSE (12/12/2007 5:41 AM SHEETFED PRESS OPERATOR) GLUCOSE POC 176(H) 60 - 100 mg/dL [facility] 12/12/2007 5:41 AM SHEETFED PRESS OPERATOR us Jh Poe MD POINT OF CARE TESTING Edited Performing Organization Address [facility] Phone Number INTERFACE SYSTEM Refer to clinic/hospital department * (ABNORMAL) POC GLUCOSE (12/12/2007 5:41 AM SHEETFED PRESS OPERATOR) GLUCOSE POC 176(H) 60 - 100 mg/dL [facility] Blood specimen (specimen) 12/12/2007 5:41 AM SHEETFED PRESS OPERATOR 12/12/2007 11:08 PM SHEETFED PRESS OPERATOR us Jh Poe MD POINT OF CARE TESTING Final Resu lt Performing Organization Address [facility] Phone Number [facility] [address] [place] [address] * (ABNORMAL) POC GLUCOSE (12/11/2007 11:48 PM SHEETFED PRESS OPERATOR) GLUCOSE POC 173(H) 60 - 100 mg/dL INTER[facility] 12/11/2007 11:4 8 PM SHEETFED PRESS OPERATOR us Jh Poe MD POINT OF CARE TESTING Edited Performing Organization Address [facility] Phone Number INTERFACE SYSTEM Refer to clinic/hospital department * (ABNORMAL) POC GLUCOSE (12/11/2007 11:48 PM SHEETFED PRESS OPERATOR) GLUCOSE POC 173(H) 60 - 100 mg/dL [facility] Blood specimen (specimen) 12/11/2007 11:48 PM SHEETFED PRESS OPERATOR 12/12/2007 11:17 PM SHEETFED PRESS OPERATOR us Jh Poe MD POINT OF CARE TESTING Final Resu lt Performing Organization Address [facility] Phone Number [facility] [address] [place] [address] * (ABNORMAL) POC GLUCOSE (12/11/2007 9:34 PM SHEETFED PRESS OPERATOR) GLUCOSE POC 143(H) 60 - 100 mg/dL INTER[facility] 12/11/2007 9:34 PM SHEETFED PRESS OPERATOR us Jh Poe MD POINT OF CARE TESTING Edited Performing Organization Address [facility] de Phone Number INTERFACE SYSTEM Refer to clinic/hospital department * (ABNORMAL) POC GLUCOSE (12/11/2007 5:05 PM SHEETFED PRESS OPERATOR) GLUCOSE POC 113(H) 60 - 100 mg/dL INTERFACE SYSTEM 12/11/2007 5:05 PM SHEETFED PRESS OPERATOR us Jh Poe MD POINT OF CARE TESTING Edited Performing Organization Address [facility] de Phone Number INTERFACE SYSTEM Refer to clinic/hospital department * (ABNORMAL) POC GLUCOSE (12/11/2007 11:53 AM SHEETFED PRESS OPERATOR) GLUCOSE POC 173(H) 60 - 100 mg/dL INTERFACE [facility] 12/11/2007 11:5 3 AM SHEETFED PRESS OPERATOR us Jh Poe MD POINT OF CARE TESTING Edited Performing Organization Address City/[facility] Co de Phone Number INTERFACE SYSTEM Refer to clinic/hospital department * (ABNORMAL) POC GLUCOSE (12/11/2007 5:52 AM SHEETFED PRESS OPERATOR) GLUCOSE POC 186(H) 60 - 100 mg/dL INTERFACE [facility] 12/11/2007 5:52 AM SHEETFED PRESS OPERATOR us Jh Poe MD POINT OF CARE TESTING Edited Performing Organization Address [facility] de Phone Number INTERFACE SYSTEM Refer to clinic/hospital department * (ABNORMAL) POC GLUCOSE (12/10/2007 11:18 PM SHEETFED PRESS OPERATOR) GLUCOSE POC 176(H) 60 - 100 mg/dL INTERFACE SYSTEM 12/10/2007 11:1 8 PM SHEETFED PRESS OPERATOR us Jh Poe MD POINT OF CARE TESTING Edited Performing Organization Address [facility] de Phone Number INTERFACE SYSTEM Refer to clinic/hospital department * (ABNORMAL) POC GLUCOSE (12/10/2007 5:31 PM SHEETFED PRESS OPERATOR) GLUCOSE POC 115(H) 60 - 100 mg/dL INTERFACE SYSTEM 12/10/2007 5:31 PM SHEETFED PRESS OPERATOR us Jh Poe MD POINT OF CARE TESTING Edited Performing Organization Address City/[facility] Co de Phone Number INTERFACE SYSTEM Refer to clinic/hospital department * (ABNORMAL) POC GLUCOSE (12/10/2007 11:38 AM SHEETFED PRESS OPERATOR) GLUCOSE POC 190(H) 60 - 100 mg/dL INTERFACE SYSTEM 12/10/2007 11:3 8 AM SHEETFED PRESS OPERATOR us Jh Poe MD POINT OF CARE TESTING Edited Performing Organization Address City/State/[facility] de Phone Number INTERFACE SYSTEM Refer to clinic/hospital department * (ABNORMAL) POC GLUCOSE (12/10/2007 5:23 AM SHEETFED PRESS OPERATOR) GLUCOSE POC 181(H) 60 - 100 mg/dL INTERFACE SYSTEM 12/10/2007 5:23 AM SHEETFED PRESS OPERATOR us Jh Poe MD POINT OF CARE TESTING Edited Performing Organization Address City/[facility] de Phone Number INTERFACE SYSTEM Refer to clinic/hospital department * (ABNORMAL) POC GLUCOSE (12/09/2007 11:19 PM SHEETFED PRESS OPERATOR) GLUCOSE POC 158(H) 60 - 100 mg/dL INTERFACE SYSTEM 12/09/2007 11:1 9 PM SHEETFED PRESS OPERATOR us Jh Poe MD POINT OF CARE TESTING Edited Performing Organization Address [facility] Phone Number INTERFACE SYSTEM Refer to clinic/hospital department * (ABNORMAL) POC GLUCOSE (12/09/2007 7:32 PM SHEETFED PRESS OPERATOR) GLUCOSE POC 168(H) 60 - 100 mg/dL INTERFACE SYSTEM 12/09/2007 7:32 PM SHEETFED PRESS OPERATOR us Jh Poe MD POINT OF CARE TESTING Edited Performing Organization Address [facility] de Phone Number INTERFACE SYSTEM Refer to clinic/hospital department * (ABNORMAL) POC GLUCOSE (12/09/2007 11:39 AM SHEETFED PRESS OPERATOR) GLUCOSE POC 201(H) 60 - 100 mg/dL INTERFACE SYSTEM 12/09/2007 11:3 9 AM SHEETFED PRESS OPERATOR us Jh Poe MD POINT OF CARE TESTING Edited Performing Organization Address [facility] de Phone Number INTERFACE SYSTEM Refer to clinic/hospital department * (ABNORMAL) POC GLUCOSE (12/09/2007 5:39 AM SHEETFED PRESS OPERATOR) GLUCOSE POC 179(H) 60 - 100 mg/dL INTERFACE SYSTEM 12/09/2007 5:39 AM SHEETFED PRESS OPERATOR us Jh Poe MD POINT OF CARE TESTING Edited INTERFACE SYSTEM Refer to clinic/hospital department * (ABNORMAL) POC GLUCOSE (12/08/2007 11:24 PM SHEETFED PRESS OPERATOR) GLUCOSE POC 174(H) 60 - 100 mg/dL INTERFACE SYSTEM 12/08/2007 11:2 4 PM SHEETFED PRESS OPERATOR us Jh Poe MD POINT OF CARE TESTING Edited INTERFACE SYSTEM Refer to clinic/hospital department * POC GLUCOSE (12/08/2007 5:34 PM SHEETFED PRESS OPERATOR) GLUCOSE POC 75 60 - 100 mg/dL INTERFACE SYSTEM 12/08/2007 5:34 PM SHEETFED PRESS OPERATOR us Jh Poe MD POINT OF CARE TESTING Edited Performing Organization Address City/[facility] Co de Phone Number INTERFACE SYSTEM Refer to clinic/hospital department * (ABNORMAL) POC GLUCOSE (12/08/2007 11:00 AM SHEETFED PRESS OPERATOR) GLUCOSE POC 180(H) 60 - 100 mg/dL INTERFACE SYSTEM 12/08/2007 11:0 0 AM SHEETFED PRESS OPERATOR us Jh Poe MD POINT OF CARE TESTING Edited INTERFACE SYSTEM Refer to clinic/hospital department * (ABNORMAL) POC GLUCOSE (12/08/2007 5:56 AM SHEETFED PRESS OPERATOR) GLUCOSE POC 203(H) 60 - 100 mg/dL INTERFACE SYSTEM 12/08/2007 5:56 AM SHEETFED PRESS OPERATOR us Jh Poe MD POINT OF CARE TESTING Edited INTERFACE SYSTEM Refer to clinic/hospital department * (ABNORMAL) POC GLUCOSE (12/07/2007 11:22 PM SHEETFED PRESS OPERATOR) GLUCOSE POC 189(H) 60 - 100 mg/dL INTERFACE SYSTEM 12/07/2007 11:2 2 PM SHEETFED PRESS OPERATOR us Jh Poe MD POINT OF CARE TESTING Edited Performing Organization Address [facility] de Phone Number INTERFACE SYSTEM Refer to clinic/hospital department * (ABNORMAL) POC GLUCOSE (12/07/2007 5:36 PM SHEETFED PRESS OPERATOR) GLUCOSE POC 140(H) 60 - 100 mg/dL INTERFACE SYSTEM 12/07/2007 5:36 PM SHEETFED PRESS OPERATOR us Jh Poe MD POINT OF CARE TESTING Edited Performing Organization Address [facility] de Phone Number INTERFACE SYSTEM Refer to clinic/hospital department * (ABNORMAL) POC GLUCOSE (12/07/2007 12:07 PM SHEETFED PRESS OPERATOR) GLUCOSE POC 198(H) 60 - 100 mg/dL INTERFACE SYSTEM 12/07/2007 12:0 7 PM SHEETFED PRESS OPERATOR us Jh Poe MD POINT OF CARE TESTING Edited Performing Organization Address [facility] Phone Number INTERFACE SYSTEM Refer to clinic/hospital department * XR SPEECH EVALUATION COMPLEX (12/07/2007 11:13 AM SHEETFED PRESS OPERATOR) Anatomical Region Laterality Modality Other 12/07/2007 11:1 3 AM SHEETFED PRESS OPERATOR Narrative 12/07/2007 11:13 AM SHEETFED PRESS OPERATOR A video swallowing study performed by speech therapy 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 Please refer to the speech therapy report for further details. - Procedure Note Dusty Orozco - 12/08/2007 A video swallowing study performed by speech therapy demonstrates moderateoral and pharyngeal stage dysphasia. Please refer to the speech therapy report for furtherdetails. - Result Latasha Poe MD DIAGNOSTIC IMAGING ORDERABLES Fi nal Result * (ABNORMAL) POC GLUCOSE (12/07/2007 5:33 AM SHEETFED PRESS OPERATOR) GLUCOSE POC 186(H) 60 - 100 mg/dL INTERFACE SYSTEM 12/07/2007 5:33 AM SHEETFED PRESS OPERATOR us Jh Poe MD POINT OF CARE TESTING Edited Performing Organization Address City/[facility] Co de Phone Number INTERFACE SYSTEM Refer to clinic/hospital department * (ABNORMAL) POC GLUCOSE (12/06/2007 11:36 PM SHEETFED PRESS OPERATOR) GLUCOSE POC 174(H) 60 - 100 mg/dL INTERFACE SYSTEM 12/06/2007 11:3 6 PM SHEETFED PRESS OPERATOR us Jh Poe MD POINT OF CARE TESTING Edited Performing Organization Address City/[facility] de Phone Number INTERFACE SYSTEM Refer to clinic/hospital department * (ABNORMAL) POC GLUCOSE (12/06/2007 4:30 PM SHEETFED PRESS OPERATOR) GLUCOSE POC 137(H) 60 - 100 mg/dL INTERFACE SYSTEM 12/06/2007 4:30 PM SHEETFED PRESS OPERATOR us Jh Poe MD POINT OF CARE TESTING Edited Performing Organization Address City/[facility] de Phone Number INTERFACE SYSTEM Refer to clinic/hospital department * (ABNORMAL) POC GLUCOSE (12/06/2007 11:29 AM SHEETFED PRESS OPERATOR) GLUCOSE POC 174(H) 60 - 100 mg/dL INTERFACE SYSTEM 12/06/2007 11:2 9 AM SHEETFED PRESS OPERATOR us Jh Poe MD POINT OF CARE TESTING Edited Performing Organization Address City/State/[facility] Co de Phone Number INTERFACE SYSTEM Refer to clinic/hospital department * (ABNORMAL) POC GLUCOSE (12/06/2007 6:37 AM SHEETFED PRESS OPERATOR) GLUCOSE POC 225(H) 60 - 100 mg/dL INTERFACE SYSTEM 12/06/2007 6:37 AM SHEETFED PRESS OPERATOR us Jh Poe MD POINT OF CARE TESTING Edited INTERFACE SYSTEM Refer to clinic/hospital department * CBC WITH DIFFERENTIAL (12/06/2007 6:05 AM SHEETFED PRESS OPERATOR) WBC 6.5 4.8 - 10.8 K/ul INTERFACE SYSTEM RBC 5.68 4.60 - 6.20 Mil/ul INTERFACE SYSTEM HEMOGLOBIN 17.4 14.0 - 18.0 g/dL INTERFACE SYSTEM HEMATOCRIT 50.5 41.0 - 53.0 % INTERFACE SYSTEM MCV 88.9 84.0 - 103.0 Fl INTERFACE SYSTEM MCH 30.6 27.0 - 34.0 pg INTERFACE SYSTEM MCHC 34.5 30.0 - 35.0 g/dL INTERFACE SYSTEM RDW 12.5 11.0 - 14.5 % INTERFACE SYSTEM PLATELETS 152 140 - 440 K/ul INTERFACE SYSTEM MPV 11.8 8.9 - 12.8 Fl INTERFACE SYSTEM NEUTROPHILS 58.8 42.2 - 75.2 % INTERFACE SYSTEM LYMPHOCYTES 31.2 24.0 - 44.0 % INTERFACE SYSTEM MONOCYTES 7.2 2.0 - 10.0 % INTERFACE SYSTEM EOSINOPHILS 2.3 0.0 - 7.0 % INTERFACE SYSTEM BASOPHILS 0.5 0.0 - 1.0 % INTERFACE SYSTEM NEUTROPHIL ABSOLUTE 3.8 2.0 - 8.0 K/ul INTERFACE SYSTEM LYMPHOCYTE ABSOLUTE 2.0 1.2 - 4.0 K/ul INTERFACE SYSTEM MONOCYTE ABSOLUTE 0.5 0.1 - 0.6 K/ul INTERFACE SYSTEM EOSINOPHIL ABSOLUTE 0.2 0.0 - 0.7 K/ul INTERFACE SYSTEM BASOPHILS ABSOLUTE 0.0 0.0 - 0.2 K/ul INTERFACE SYSTEM 12/06/2007 6:05 AM SHEETFED PRESS OPERATOR Jh Poe MD HEMATOLOGY ORDERABLES Edited INTERFACE SYSTEM Refer to clinic/hospital department * (ABNORMAL) POC GLUCOSE (12/06/2007 12:04 AM SHEETFED PRESS OPERATOR) GLUCOSE POC 196(H) 60 - 100 mg/dL INTERFACE SYSTEM 12/06/2007 12:0 4 AM SHEETFED PRESS OPERATOR us Jh Poe MD POINT OF CARE TESTING Edited Performing Organization Address City/State/[facility] Co de Phone Number INTERFACE SYSTEM Refer to clinic/hospital department * (ABNORMAL) POC GLUCOSE (12/05/2007 4:51 PM SHEETFED PRESS OPERATOR) GLUCOSE POC 145(H) 60 - 100 mg/dL INTERFACE SYSTEM 12/05/2007 4:51 PM SHEETFED PRESS OPERATOR Jh Poe MD POINT OF CARE TESTING Edited Performing Organization Address City/[facility] Co de Phone Number INTERFACE SYSTEM Refer to clinic/hospital department * (ABNORMAL) POC GLUCOSE (12/05/2007 11:57 AM SHEETFED PRESS OPERATOR) GLUCOSE POC 260(H) 60 - 100 mg/dL INTERFACE SYSTEM 12/05/2007 11:5 7 AM SHEETFED PRESS OPERATOR Jh Poe MD POINT OF CARE TESTING Edited Performing Organization Address City/[facility] Co de Phone Number INTERFACE SYSTEM Refer to clinic/hospital department * (ABNORMAL) POC GLUCOSE (12/05/2007 6:38 AM SHEETFED PRESS OPERATOR) GLUCOSE POC 248(H) 60 - 100 mg/dL INTERFACE SYSTEM 12/05/2007 6:38 AM SHEETFED PRESS OPERATOR us Jh Poe MD POINT OF CARE TESTING Edited Performing Organization Address City/[facility] Co de Phone Number INTERFACE SYSTEM Refer to clinic/hospital department * (ABNORMAL) POC GLUCOSE (12/05/2007 5:28 AM SHEETFED PRESS OPERATOR) GLUCOSE POC 211(H) 60 - 100 mg/dL INTERFACE SYSTEM 12/05/2007 5:28 AM SHEETFED PRESS OPERATOR us Jh Poe MD POINT OF CARE TESTING Edited Performing Organization Address City/State/[facility] Co de Phone Number INTERFACE SYSTEM Refer to clinic/hospital department * (ABNORMAL) POC GLUCOSE (12/04/2007 11:33 PM SHEETFED PRESS OPERATOR) GLUCOSE POC 227(H) 60 - 100 mg/dL INTERFACE SYSTEM 12/04/2007 11:3 3 PM SHEETFED PRESS OPERATOR us Jh Poe MD POINT OF CARE TESTING Edited Performing Organization Address City/[facility]/[place] de Phone Number INTERFACE SYSTEM Refer to clinic/hospital department * (ABNORMAL) POC GLUCOSE (12/04/2007 4:49 PM SHEETFED PRESS OPERATOR) GLUCOSE POC 147(H) 60 - 100 mg/dL INTERFACE SYSTEM 12/04/2007 4:49 PM SHEETFED PRESS OPERATOR us Jh Poe MD POINT OF CARE TESTING Edited Performing Organization Address [facility]/[place] de Phone Number INTERFACE SYSTEM Refer to clinic/hospital department * (ABNORMAL) POC GLUCOSE (12/04/2007 10:58 AM SHEETFED PRESS OPERATOR) GLUCOSE POC 200(H) 60 - 100 mg/dL INTERFACE SYSTEM 12/04/2007 10:5 8 AM SHEETFED PRESS OPERATOR us Jh Poe MD POINT OF CARE TESTING Edited Performing Organization Address [facility]/[place] de Phone Number INTERFACE SYSTEM Refer to clinic/hospital department * (ABNORMAL) POC GLUCOSE (12/04/2007 5:13 AM SHEETFED PRESS OPERATOR) GLUCOSE POC 204(H) 60 - 100 mg/dL INTERFACE SYSTEM 12/04/2007 5:13 AM SHEETFED PRESS OPERATOR Result Latasha Poe MD POINT OF CARE TESTING Edited Performing Organization Address City/[facility]/[place] de Phone Number INTERFACE SYSTEM Refer to clinic/hospital department * (ABNORMAL) POC GLUCOSE (12/03/2007 11:37 PM SHEETFED PRESS OPERATOR) GLUCOSE POC 183(H) 60 - 100 mg/dL INTERFACE SYSTEM 12/03/2007 11:3 7 PM SHEETFED PRESS OPERATOR us Jh Poe MD POINT OF CARE TESTING Edited Performing Organization Address City/[facility] Co de Phone Number INTERFACE SYSTEM Refer to clinic/hospital department * (ABNORMAL) POC GLUCOSE (12/03/2007 5:06 PM SHEETFED PRESS OPERATOR) GLUCOSE POC 125(H) 60 - 100 mg/dL INTERFACE SYSTEM 12/03/2007 5:06 PM SHEETFED PRESS OPERATOR us Jh Poe MD POINT OF CARE TESTING Edited Performing Organization Address City/State/[facility] Co de Phone Number INTERFACE SYSTEM Refer to clinic/hospital department * (ABNORMAL) POC GLUCOSE (12/03/2007 10:54 AM SHEETFED PRESS OPERATOR) GLUCOSE POC 241(H) 60 - 100 mg/dL INTERFACE SYSTEM 12/03/2007 10:5 4 AM SHEETFED PRESS OPERATOR us Jh Poe MD POINT OF CARE TESTING Edited Performing Organization Address City/[facility] Co de Phone Number INTERFACE SYSTEM Refer to clinic/hospital department * (ABNORMAL) POC GLUCOSE (12/03/2007 5:16 AM SHEETFED PRESS OPERATOR) GLUCOSE POC 216(H) 60 - 100 mg/dL INTERFACE SYSTEM 12/03/2007 5:16 AM SHEETFED PRESS OPERATOR us Jh Poe MD POINT OF CARE TESTING Edited Performing Organization Address [facility] Co de Phone Number INTERFACE SYSTEM Refer to clinic/hospital department * (ABNORMAL) POC GLUCOSE (12/02/2007 11:21 PM SHEETFED PRESS OPERATOR) GLUCOSE POC 171(H) 60 - 100 mg/dL INTERFACE SYSTEM 12/02/2007 11:2 1 PM SHEETFED PRESS OPERATOR us Jh Poe MD POINT OF CARE TESTING Edited INTERFACE SYSTEM Refer to clinic/hospital department * ICTOTEST (12/02/2007 9:18 PM SHEETFED PRESS OPERATOR) ICTO Negative Negative INTERFACE SYSTEM 12/02/2007 9:18 PM SHEETFED PRESS OPERATOR Jh Poe MD URINE ORDERABLES Edited Performing Organization Address [facility] Phone Number INTERFACE SYSTEM Refer to clinic/hospital department * (ABNORMAL) URINALYSIS (12/02/2007 9:18 PM SHEETFED PRESS OPERATOR) COLOR UA Yellow Straw INTERFACE SYSTEM CLARITY UA Clear Clear INTERFACE SYSTEM LEUKOCYTE ESTERASE UA NEGATIVE NEGATIVE INTERFACE SYSTEM NITRITE UA NEGATIVE NEGATIVE INTERFACE SYSTEM PH UA 6.0 5.0 - 9.0 INTERFACE SYSTEM PROTEIN UA NEGATIVE NEGATIVE INTERFACE SYSTEM GLUCOSE UA 500 mg/dl(A) NEGATIVE INTERF STEPAN SYSTEM KETONES UA NEGATIVE NEGATIVE INTERFACE SYSTEM UROBILINOGEN UA 2.0(A) 0.2 INTE RFACE SYSTEM BLOOD UA NEGATIVE NEGATIVE INTERFACE SYSTEM SPECIFIC GRAVITY UA >=1.030(A) <=1.005 INTERFACE SYSTEM MICRO EXAM No No INTERFACE SYSTEM 12/02/2007 9:18 PM SHEETFED PRESS OPERATOR Jh Poe MD URINE ORDERABLES Edited Performing Organization Address [facility] Phone Number INTERFACE SYSTEM Refer to clinic/hospital department * (ABNORMAL) POC GLUCOSE (12/02/2007 5:21 PM SHEETFED PRESS OPERATOR) GLUCOSE POC 156(H) 60 - 100 mg/dL INTERFACE SYSTEM 12/02/2007 5:21 PM SHEETFED PRESS OPERATOR Jh Poe MD POINT OF CARE TESTING Edited Performing Organization Address [facility] Phone Number INTERFACE SYSTEM Refer to clinic/hospital department * (ABNORMAL) POC GLUCOSE (12/02/2007 11:17 AM SHEETFED PRESS OPERATOR) GLUCOSE POC 206(H) 60 - 100 mg/dL INTERFACE SYSTEM 12/02/2007 11:1 7 AM SHEETFED PRESS OPERATOR Jh Poe MD POINT OF CARE TESTING Edited Performing Organization Address [facility]/[place] de Phone Number INTERFACE SYSTEM Refer to clinic/hospital department * (ABNORMAL) POC GLUCOSE (12/02/2007 8:37 AM SHEETFED PRESS OPERATOR) GLUCOSE POC 210(H) 60 - 100 mg/dL INTERFACE SYSTEM 12/02/2007 8:37 AM SHEETFED PRESS OPERATOR us Jh Poe MD POINT OF CARE TESTING Edited Performing Organization Address City/[facility]/[place] de Phone Number INTERFACE SYSTEM Refer to clinic/hospital department * (ABNORMAL) POC GLUCOSE (12/02/2007 5:37 AM SHEETFED PRESS OPERATOR) GLUCOSE POC 239(H) 60 - 100 mg/dL INTERFACE SYSTEM 12/02/2007 5:37 AM SHEETFED PRESS OPERATOR us Jh Poe MD POINT OF CARE TESTING Edited Performing Organization Address [facility]/[place] de Phone Number INTERFACE SYSTEM Refer to clinic/hospital department * (ABNORMAL) POC GLUCOSE (12/01/2007 11:57 PM SHEETFED PRESS OPERATOR) GLUCOSE POC 180(H) 60 - 100 mg/dL INTERFACE SYSTEM 12/01/2007 11:5 7 PM SHEETFED PRESS OPERATOR us Jh Poe MD POINT OF CARE TESTING Edited Performing Organization Address [facility]/[place] de Phone Number INTERFACE SYSTEM Refer to clinic/hospital department * (ABNORMAL) POC GLUCOSE (12/01/2007 4:53 PM SHEETFED PRESS OPERATOR) GLUCOSE POC 186(H) 60 - 100 mg/dL INTERFACE SYSTEM COMMENT POC Follow Protocol INTERFACE SYSTEM 12/01/2007 4:53 PM SHEETFED PRESS OPERATOR us Jh Poe MD POINT OF CARE TESTING Edited Performing Organization Address [facility]/[place] de Phone Number INTERFACE SYSTEM Refer to clinic/hospital department * (ABNORMAL) POC GLUCOSE (12/01/2007 10:48 AM SHEETFED PRESS OPERATOR) GLUCOSE POC 238(H) 60 - 100 mg/dL INTERFACE SYSTEM COMMENT POC Follow Protocol INTERFACE SYSTEM 12/01/2007 10:4 8 AM SHEETFED PRESS OPERATOR us Jh Poe MD POINT OF CARE TESTING Edited Performing Organization Address City/[facility]/ZIP Co de Phone Number INTERFACE SYSTEM Refer to clinic/hospital department * (ABNORMAL) POC GLUCOSE (12/01/2007 5:37 AM SHEETFED PRESS OPERATOR) GLUCOSE POC 212(H) 60 - 100 mg/dL INTERFACE SYSTEM 12/01/2007 5:37 AM SHEETFED PRESS OPERATOR Result [facility] Jh Poe MD POINT OF CARE TESTING Edited Performing Organization Address [facility] Phone Number INTERFACE SYSTEM Refer to clinic/hospital department * (ABNORMAL) URINALYSIS MICROSCOPY ONLY (12/01/2007 3:37 AM SHEETFED PRESS OPERATOR) WBC URINE None Seen 0 - 2 INTERFACE SYSTEM RBC UA 0-2 0 - 2 INTERFACE SYSTEM HYALINE CAST 3-5(A) 0 - 2 INTERFA CE SYSTEM BACTERIA UA None Seen None Seen INTERFAC E SYSTEM 12/01/2007 3:37 AM SHEETFED PRESS OPERATOR us Jh Poe MD URINE ORDERABLES Edited Performing Organization Address [facility] Phone Number INTERFACE SYSTEM Refer to clinic/hospital department * ICTOTEST (12/01/2007 3:37 AM SHEETFED PRESS OPERATOR) ICTO Negative Negative INTERFACE SYSTEM 12/01/2007 3:37 AM SHEETFED PRESS OPERATOR us Jh Poe MD URINE ORDERABLES Edited Performing Organization Address [facility] Phone Number INTERFACE SYSTEM Refer to clinic/hospital department * (ABNORMAL) ACETONE QUALITATIVE, URINE (12/01/2007 3:37 AM SHEETFED PRESS OPERATOR) KETONES UA Moderate(A ) Negative INTERFACE SYSTEM 12/01/2007 3:37 AM SHEETFED PRESS OPERATOR us Jh Poe MD URINE ORDERABLES Edited Performing Organization Address [facility]/[place] de Phone Number INTERFACE SYSTEM Refer to clinic/hospital department * (ABNORMAL) GLUCOSE URINALYSIS, QUALITATIVE (12/01/2007 3:37 AM SHEETFED PRESS OPERATOR) GLUCOSE, URINE 3000(A) Negative INTER FACE SYSTEM 12/01/2007 3:37 AM SHEETFED PRESS OPERATOR Jh Poe MD URINE ORDERABLES Edited Performing Organization Address [facility] Phone Number INTERFACE SYSTEM Refer to clinic/hospital department * (ABNORMAL) URINALYSIS (12/01/2007 3:37 AM SHEETFED PRESS OPERATOR) COLOR UA Yellow Straw INTERFACE SYSTEM CLARITY UA Clear Clear INTERFACE SYSTEM LEUKOCYTE ESTERASE UA NEGATIVE NEGATIVE INTERFACE SYSTEM NITRITE UA NEGATIVE NEGATIVE INTERFACE SYSTEM PH UA 5.5 5.0 - 9.0 INTERFACE SYSTEM PROTEIN UA NEGATIVE NEGATIVE INTERFACE SYSTEM GLUCOSE UA 500 mg/dl(A) NEGATIVE INTERF STEPAN SYSTEM KETONES UA 15 mg/dl(A) NEGATIVE INTERFA CE SYSTEM UROBILINOGEN UA 1.0(A) 0.2 INTE RFACE SYSTEM BILIRUBIN UA Small(A) NEGATIVE INTERFA CE SYSTEM BLOOD UA NEGATIVE NEGATIVE INTERFACE SYSTEM SPECIFIC GRAVITY UA 1.035 <=1.005 INTERFACE SYSTEM MICRO EXAM Yes(A) No INTERFACE SYSTEM 12/01/2007 3:37 AM SHEETFED PRESS OPERATOR Jh Poe MD URINE ORDERABLES Edited Performing Organization Address [facility] Phone Number INTERFACE SYSTEM Refer to clinic/hospital department * (ABNORMAL) POC GLUCOSE (11/30/2007 11:50 PM SHEETFED PRESS OPERATOR) GLUCOSE POC 247(H) 60 - 100 mg/dL INTERFACE SYSTEM 11/30/2007 11:5 0 PM SHEETFED PRESS OPERATOR Jh Poe MD POINT OF CARE TESTING Edited Performing Organization Address [facility] Phone Number INTERFACE SYSTEM Refer to clinic/hospital department * (ABNORMAL) POC ISTAT EG 7+ (11/30/2007 7:30 PM SHEETFED PRESS OPERATOR) SPECIMEN TYPE Arterial INTERF STEPAN SYSTEM Comment: Test Performed By [id number] Pulse OX: 94 Hemoglobin calculated from Hematocrit result PH 7.42 7.35 - 7.45 Unit INTERFACE SYSTEM PH TEMP CORRECT 7.42 7.35 - 7.45 Unit INTERFACE SYSTEM PCO2 POC 36 35 - 45 mmHg INTERFACE SYSTEM PCO2 TEMP CORRECT 36 35 - 45 mmHg INTERFACE SYSTEM PO2 67(L) 80 - 105 mmHg INTERFACE SYSTEM PO2 TEMP CORRECT 67(L) 80 - 105 mmHg INTERFACE SYSTEM HCO3 (CALC) POC 23.2 22.0 - 26.0 mmol/l INTERFACE SYSTEM BASE EXCESS -1 -2 - 3 mmol/l INTERFACE SYSTEM HEMOGLOBIN POC 16.0 3 g/dL 13.5 - 18.0 g/dL INTERFACE SYSTEM HEMATOCRIT ABG 47 38 - 51 % INTER FACE SYSTEM O2 SATURATION 93(L) 95 - 98 % INTERF STEPAN SYSTEM TCO2 (CALC) POC 24 23 - 27 mmol/l INTERFACE SYSTEM SODIUM 136(L) 138 - 146 mEq/L INTERFACE SYSTEM POTASSIUM 3.6 3.5 - 4.9 mEq/L INTERFACE SYSTEM CALCIUM IONIZED 1.24 1.12 - 1.32 mmol/l INTERFACE SYSTEM 11/30/2007 7:30 PM SHEETFED PRESS OPERATOR us Jh Poe MD POINT OF CARE TESTING COM Edited INTERFACE SYSTEM Refer to clinic/hospital department * (ABNORMAL) POC GLUCOSE (11/30/2007 4:48 PM SHEETFED PRESS OPERATOR) GLUCOSE POC 200(H) 60 - 100 mg/dL INTERFACE SYSTEM 11/30/2007 4:48 PM SHEETFED PRESS OPERATOR us Jh Poe MD POINT OF CARE TESTING Edited INTERFACE SYSTEM Refer to clinic/hospital department * (ABNORMAL) POC GLUCOSE (11/30/2007 11:44 AM SHEETFED PRESS OPERATOR) GLUCOSE POC 179(H) 60 - 100 mg/dL INTERFACE SYSTEM 11/30/2007 11:4 4 AM SHEETFED PRESS OPERATOR us Jh Poe MD POINT OF CARE TESTING Edited INTERFACE SYSTEM Refer to clinic/hospital department * VITAMIN B12 (11/30/2007 6:15 AM SHEETFED PRESS OPERATOR) VITAMIN B12 813 211 - 911 pg/dL INTERFACE SYSTEM 11/30/2007 6:15 AM SHEETFED PRESS OPERATOR Jh Poe MD CHEMISTRY ORDERABLES Edited Performing Organization Address [facility] Phone Number INTERFACE SYSTEM Refer to clinic/hospital department * (ABNORMAL) COMPREHENSIVE METABOLIC PANEL (11/30/2007 6:15 AM SHEETFED PRESS OPERATOR) BUN 9 9 - 20 mg/dL INTERFACE SYSTEM CREATININE 0.6(L) 0.7 - 1.5 mg/dL INTERFACE SYSTEM GLOBULIN (CALC) 3.0 2.4 - 3.9 g/dL INTERFACE SYSTEM ALBUMIN/GLOBULIN RATIO 1.3 1.0 - 2.3 INTERFACE SYSTEM GLUCOSE 162(H) 70 - 110 mg/dL INTERFACE SYSTEM SODIUM 138 136 - 145 mEq/L INTERFACE SYSTEM POTASSIUM 3.8 3.5 - 5.0 mEq/L INTERFACE SYSTEM CHLORIDE 105 95 - 110 mEq/L INTERFACE SYSTEM CO2 24 22 - 32 mmol/l INTERFACE SYSTEM CALCIUM 9.2 8.4 - 10.5 mg/dL INTERFACE SYSTEM TOTAL PROTEIN 6.9 6.3 - 8.2 g/dL INTERFACE SYSTEM ALBUMIN 3.9 3.5 - 5.0 g/dL INTERFACE SYSTEM ALKALINE PHOSPHATASE 105(H) 25 - 100 U/L INTERFACE SYSTEM AST 38(H) 8 - 33 U/L INTERFACE SYSTEM ALT 18 4 - 36 IU/L INTERFACE SYSTEM BILIRUBIN TOTAL 0.5 0.3 - 1.2 mg/dL INTERFACE SYSTEM ANION GAP 13 9 - 20 mEq/L INTERFACE SYSTEM OSMOLALITY, CALCULATED 286 275 - 295 mOsm/Kg INTERFACE SYSTEM 11/30/2007 6:15 AM SHEETFED PRESS OPERATOR Jh Poe MD CHEMISTRY ORDERABLES Edited Performing Organization Address [facility] Phone Number INTERFACE SYSTEM Refer to clinic/hospital department * (ABNORMAL) CBC WITH DIFFERENTIAL (11/30/2007 6:15 AM SHEETFED PRESS OPERATOR) WBC 5.6 4.8 - 10.8 K/ul INTERFACE SYSTEM RBC 5.31 4.60 - 6.20 Mil/ul INTERFACE SYSTEM HEMOGLOBIN 16.0 14.0 - 18.0 g/dL INTERFACE SYSTEM HEMATOCRIT 46.6 41.0 - 53.0 % INTERFACE SYSTEM MCV 87.8 84.0 - 103.0 Fl INTERFACE SYSTEM MCH 30.1 27.0 - 34.0 pg INTERFACE SYSTEM MCHC 34.3 30.0 - 35.0 g/dL INTERFACE SYSTEM RDW 12.4 11.0 - 14.5 % INTERFACE SYSTEM PLATELETS 129(L) 140 - 440 K/ul INTERFACE SYSTEM MPV 11.7 8.9 - 12.8 Fl INTERFACE SYSTEM NEUTROPHILS 64.8 42.2 - 75.2 % INTERFACE SYSTEM LYMPHOCYTES 23.7(L) 24.0 - 44.0 % INTERFACE SYSTEM MONOCYTES 8.4 2.0 - 10.0 % INTERFACE SYSTEM EOSINOPHILS 2.7 0.0 - 7.0 % INTERFACE SYSTEM BASOPHILS 0.4 0.0 - 1.0 % INTERFACE SYSTEM NEUTROPHIL ABSOLUTE 3.6 2.0 - 8.0 K/ul INTERFACE SYSTEM LYMPHOCYTE ABSOLUTE 1.3 1.2 - 4.0 K/ul INTERFACE SYSTEM MONOCYTE ABSOLUTE 0.5 0.1 - 0.6 K/ul INTERFACE SYSTEM EOSINOPHIL ABSOLUTE 0.2 0.0 - 0.7 K/ul INTERFACE SYSTEM BASOPHILS ABSOLUTE 0.0 0.0 - 0.2 K/ul INTERFACE SYSTEM 11/30/2007 6:15 AM SHEETFED PRESS OPERATOR Jh Poe MD HEMATOLOGY ORDERABLES Edited Performing Organization Address City/[facility]/ZIP Co de Phone Number INTERFACE SYSTEM Refer to clinic/hospital department * (ABNORMAL) POC GLUCOSE (11/30/2007 5:36 AM SHEETFED PRESS OPERATOR) GLUCOSE POC 157(H) 60 - 100 mg/dL INTERFACE SYSTEM 11/30/2007 5:36 AM SHEETFED PRESS OPERATOR Jh Poe MD POINT OF CARE TESTING Edited INTERFACE SYSTEM Refer to clinic/hospital department * (ABNORMAL) POC GLUCOSE (11/29/2007 11:59 PM SHEETFED PRESS OPERATOR) GLUCOSE POC 196(H) 60 - 100 mg/dL INTERFACE SYSTEM COMMENT POC Notify R.N INTERFA CE SYSTEM 11/29/2007 11:5 9 PM SHEETFED PRESS OPERATOR Jh Poe MD POINT OF CARE TESTING Edited INTERFACE SYSTEM Refer to clinic/hospital department * XR HIP 2+ VW LEFT (11/29/2007 7:13 PM SHEETFED PRESS OPERATOR) Anatomical Region Laterality Modality Lower Extremity Left Other 11/29/2007 7:13 PM SHEETFED PRESS OPERATOR Narrative 01/02/2009 4:39 AM SHEETFED PRESS OPERATOR LEFT HIP AND PELVIS: 12/18/2007 CLINICAL INFORMATION: Fall. Rule out fracture. FINDINGS: Left hip joint is unremarkable. There is minimal osteophyte at the right hip with joint space maintenance. Residual contrast present in the distal colon. Degenerative changes noted in the spine. Remainder of the bony pelvis is intact. IMPRESSION: No acute pathology. cgf: Dictated By: Sean Griffin M.D. Electronically Signed By: Sean Griffin M.D. Date Signed: 12/20/07 Procedure Note Provider, Historical - 01/10/2009 LEFT HIP AND PELVIS: 12/18/2007 CLINICAL INFORMATION: Fall. Rule out fracture. FINDINGS: Left hip joint is unremarkable. There is minimal osteophyte at the righthip with joint space maintenance. Residual contrast present in the distal colon. Degenerativechanges noted in the spine. Remainder of the bony pelvis is intact. IMPRESSION: No acute pathology. cgf: Dictated By: Sean Griffin M.D. Electronically Signed By: Sean Griffin M.D. 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(438.89) Other late effects of cerebrovascular disease Dysphagia, oropharyngeal phase Other and unspecified angina pectoris Other and unspecified hyperlipidemia Tobacco use disorder Unspecified essential hypertension Encounter for long-term (current) use of insulin ([facility]) Encounter for long-term (current) use of insulin Type II or unspecified type diabetes mellitus without mention of complication, not stated as uncontrolled Profound impairment, one eye, impairment level not further specified Profound impairment, one eye, Impairment level not further specified Hypoxemia Other seborrheic dermatitis Hip, thigh, leg, and ankle, abrasion or friction burn, without mention of infection Fall from other slipping, tripping, or stumbling Place of occurrence, residential institution documented in this encounter Care Teams Principal Trainer Relationship Specialty Start Date End Date Jaylene Mccoy DO PCP - General Family Practice 02/08/15 documented as of this encounter
--- OUTSIDE RECORDS SUMMARY | 2025-05-20 21:51 | XMS_ITS | Encounter Summary ---
Author Organization [facility] Address [address] [place] [address] Care Team Providers Care Group Director Experience Name Role Phone Jaylene Mccoy DO Primary Care Provider [phone] Encounter Details Date Type Department Care Team (Late st Contact Info) Description 11/24/2007 Outpatient Historical HIS IN BED Sj Ed, Physician NO ADDRESS ON FILE Mak Conti MD [place] [id number] [place] [address] Unspecified Hemiplegia Affecting Unspecified Side (CMS/HCC); Dysphagia, Unspecified; DM w/o Complication Type II, Uncontrolled; Chronic Airway Obstruction, not Elsewhere Classified (CMS/HCC); Other Speech Disturbance; Other and Unspecified Hyperlipidemia; Tobacco Use Disorder; Unspecified Essential Hypertension; Unspecified Chest Pain Social History Tobacco Use Types Packs/Day Years Used Date Smoking Tobacco: Never Assessed Sex and Gender Information Value Date Recorded Sex Assigned at Not on file Legal Sex Male 6:04 AM AIDS NURSE Gender Identity Not on file Sexual Orientation Not on file documented as of this encounter Plan of Treatment Not on file documented as of this encounter Procedures Procedure Name Priority Date/Time Associated Diagnosis Comments POC GLUCOSE Routine 11/29/2007 4:50 PM AIDS NURSE POC GLUCOSE Routine 11/29/2007 11:14 AM AIDS NURSE POC GLUCOSE Routine 11/29/2007 7:12 AM AIDS NURSE POC GLUCOSE Routine 11/28/2007 11:08 PM AIDS NURSE POC GLUCOSE Routine 11/28/2007 5:04 PM AIDS NURSE POC GLUCOSE Routine 11/28/2007 4:38 PM AIDS NURSE POC GLUCOSE Routine 11/28/2007 10:48 AM AIDS NURSE POC GLUCOSE Routine 11/28/2007 6:57 AM AIDS NURSE POC GLUCOSE Routine 11/28/2007 5:21 AM AIDS NURSE POC GLUCOSE Routine 11/27/2007 11:48 PM AIDS NURSE POC GLUCOSE Routine 11/27/2007 5:25 PM AIDS NURSE POC GLUCOSE Routine 11/27/2007 11:52 AM AIDS NURSE BASIC METABOLIC PANEL Routine 11/27/2007 6:10 AM AIDS NURSE POC GLUCOSE Routine 11/27/2007 5:53 AM AIDS NURSE CARDIAC ENZYMES Routine 11/27/2007 12:32 AM AIDS NURSE POC GLUCOSE Routine 11/26/2007 11:38 PM AIDS NURSE CARDIAC ENZYMES Routine 11/26/2007 6:40 PM AIDS NURSE POC GLUCOSE Routine 11/26/2007 5:04 PM AIDS NURSE POC GLUCOSE Routine 11/26/2007 3:51 PM AIDS NURSE CARDIAC ENZYMES Routine 11/26/2007 12:47 PM AIDS NURSE POC GLUCOSE Routine 11/26/2007 12:19 PM AIDS NURSE POC GLUCOSE Routine 11/26/2007 8:57 AM AIDS NURSE POC GLUCOSE Routine 11/26/2007 4:58 AM AIDS NURSE POC GLUCOSE Routine 11/25/2007 11:20 PM AIDS NURSE POC GLUCOSE Routine 11/25/2007 7:02 PM AIDS NURSE POC GLUCOSE Routine 11/25/2007 4:34 PM AIDS NURSE POC GLUCOSE Routine 11/25/2007 12:02 PM AIDS NURSE GLUCOSE URINALYSIS, QUALITATIVE Routine 11/25/2007 6:23 AM AIDS NURSE KETONE, QUALITATIVE, URINE Routine 11/25/2007 6:23 AM AIDS NURSE URINALYSIS W/REFLEX MICROSCOPIC Routine 11/25/2007 6:23 AM AIDS NURSE TSH Routine 11/25/2007 6:12 AM AIDS NURSE HOMOCYSTEINE Routine 11/25/2007 6:12 AM AIDS NURSE HEMOGLOBIN A1C Routine 11/25/2007 6:12 AM AIDS NURSE LIPID PANEL Routine 11/25/2007 6:12 AM AIDS NURSE COMPREHENSIVE METABOLIC PANEL Routine 11/25/2007 6:12 AM AIDS NURSE POC GLUCOSE Routine 11/25/2007 2:17 AM AIDS NURSE POC GLUCOSE Routine 11/24/2007 11:14 PM AIDS NURSE PT AND APTT Routine 11/24/2007 7:35 PM AIDS NURSE CBC WITH DIFFERENTIAL Routine 11/24/2007 7:35 PM AIDS NURSE POC ELECTROLYTES/BMP Routine 11/24/2007 7:25 PM AIDS NURSE POC CREATININE Routine 11/24/2007 7:25 PM AIDS NURSE documented in this encounter Results * (ABNORMAL) POC GLUCOSE (11/29/2007 4:50 PM AIDS NURSE) GLUCOSE POC 157(H) 60 - 100 mg/dL INTERFACE SYSTEM 11/29/2007 4:50 PM AIDS NURSE Result Latasha Brennan MD POINT OF CARE TESTING Edited Performing Organization Address City/[facility] Co de Phone Number INTERFACE SYSTEM Refer to clinic/hospital department * (ABNORMAL) POC GLUCOSE (11/29/2007 11:14 AM AIDS NURSE) GLUCOSE POC 122(H) 60 - 100 mg/dL INTERFACE SYSTEM 11/29/2007 11:1 4 AM AIDS NURSE Result Latasha Brennan MD POINT OF CARE TESTING Edited Performing Organization Address City/[facility] Co de Phone Number INTERFACE SYSTEM Refer to clinic/hospital department * (ABNORMAL) POC GLUCOSE (11/29/2007 7:12 AM AIDS NURSE) GLUCOSE POC 146(H) 60 - 100 mg/dL INTERFACE SYSTEM 11/29/2007 7:12 AM AIDS NURSE Result Latasha Brennan MD POINT OF CARE TESTING Edited Performing Organization Address [facility] Co de Phone Number INTERFACE SYSTEM Refer to clinic/hospital department * (ABNORMAL) POC GLUCOSE (11/28/2007 11:08 PM AIDS NURSE) GLUCOSE POC 127(H) 60 - 100 mg/dL INTERFACE SYSTEM 11/28/2007 11:0 8 PM AIDS NURSE Result Latasha Brennan MD POINT OF CARE TESTING Edited Performing Organization Address [facility] Co de Phone Number INTERFACE SYSTEM Refer to clinic/hospital department * (ABNORMAL) POC GLUCOSE (11/28/2007 5:04 PM AIDS NURSE) GLUCOSE POC 121(H) 60 - 100 mg/dL INTERFACE SYSTEM 11/28/2007 5:04 PM AIDS NURSE Result Latasha Brennan MD POINT OF CARE TESTING Edited Performing Organization Address City/[facility] Co de Phone Number INTERFACE SYSTEM Refer to clinic/hospital department * (ABNORMAL) POC GLUCOSE (11/28/2007 4:38 PM AIDS NURSE) GLUCOSE POC 106(H) 60 - 100 mg/dL INTERFACE SYSTEM 11/28/2007 4:38 PM AIDS NURSE Result Latasha Brennan MD POINT OF CARE TESTING Edited INTERFACE SYSTEM Refer to clinic/hospital department * (ABNORMAL) POC GLUCOSE (11/28/2007 10:48 AM AIDS NURSE) GLUCOSE POC 113(H) 60 - 100 mg/dL INTERFACE SYSTEM 11/28/2007 10:4 8 AM AIDS NURSE Result Latasha Brennan MD POINT OF CARE TESTING Edited Performing Organization Address [facility] Co de Phone Number INTERFACE SYSTEM Refer to clinic/hospital department * (ABNORMAL) POC GLUCOSE (11/28/2007 6:57 AM AIDS NURSE) GLUCOSE POC 115(H) 60 - 100 mg/dL INTERFACE SYSTEM 11/28/2007 6:57 AM AIDS NURSE Result Latasha Brennan MD POINT OF CARE TESTING Edited Performing Organization Address [facility] de Phone Number INTERFACE SYSTEM Refer to clinic/hospital department * (ABNORMAL) POC GLUCOSE (11/28/2007 5:21 AM AIDS NURSE) GLUCOSE POC 106(H) 60 - 100 mg/dL INTERFACE SYSTEM 11/28/2007 5:21 AM AIDS NURSE Result Latasha Brennan MD POINT OF CARE TESTING Edited Performing Organization Address City/State/[facility] Co de Phone Number INTERFACE SYSTEM Refer to clinic/hospital department * (ABNORMAL) POC GLUCOSE (11/27/2007 11:48 PM AIDS NURSE) GLUCOSE POC 112(H) 60 - 100 mg/dL INTERFACE SYSTEM 11/27/2007 11:4 8 PM AIDS NURSE Result Latasha Brennan MD POINT OF CARE TESTING Edited Performing Organization Address [facility] de Phone Number INTERFACE SYSTEM Refer to clinic/hospital department * POC GLUCOSE (11/27/2007 5:25 PM AIDS NURSE) GLUCOSE POC 97 60 - 100 mg/dL INTERFACE SYSTEM 11/27/2007 5:25 PM AIDS NURSE Result Latasha Brennan MD POINT OF CARE TESTING Edited Performing Organization Address [facility] de Phone Number INTERFACE SYSTEM Refer to clinic/hospital department * POC GLUCOSE (11/27/2007 11:52 AM AIDS NURSE) GLUCOSE POC 98 60 - 100 mg/dL INTERFACE SYSTEM 11/27/2007 11:5 2 AM AIDS NURSE Result Latasha Brennan MD POINT OF CARE TESTING Edited Performing Organization Address [facility] Phone Number INTERFACE SYSTEM Refer to clinic/hospital department * (ABNORMAL) BASIC METABOLIC PANEL (11/27/2007 6:10 AM AIDS NURSE) GLUCOSE 93 70 - 110 mg/dL INTERFACE SYSTEM BUN 9 9 - 20 mg/dL INTERFACE SYSTEM CREATININE 0.5(L) 0.7 - 1.5 mg/dL INTERFACE SYSTEM SODIUM 139 136 - 145 mEq/L INTERFACE SYSTEM POTASSIUM 3.9 3.5 - 5.0 mEq/L INTERFACE SYSTEM CHLORIDE 108 95 - 110 mEq/L INTERFACE SYSTEM CO2 22 22 - 32 mmol/l INTERFACE SYSTEM CALCIUM 9.1 8.4 - 10.5 mg/dL INTERFACE SYSTEM ANION GAP 13 9 - 20 mEq/L INTERFACE SYSTEM OSMOLALITY, CALCULATED 284 275 - 295 mOsm/Kg INTERFACE SYSTEM 11/27/2007 6:10 AM AIDS NURSE Result Latasha Brennan MD CHEMISTRY ORDERABLES Edited Performing Organization Address [facility] de Phone Number INTERFACE SYSTEM Refer to clinic/hospital department * POC GLUCOSE (11/27/2007 5:53 AM AIDS NURSE) GLUCOSE POC 98 60 - 100 mg/dL INTERFACE SYSTEM 11/27/2007 5:53 AM AIDS NURSE Result Latasha Brennan MD POINT OF CARE TESTING Edited Performing Organization Address [facility] Phone Number INTERFACE SYSTEM Refer to clinic/hospital department * CARDIAC ENZYMES (11/27/2007 12:32 AM AIDS NURSE) TROPONIN I <0.1 0.0 - 1.3 ng/mL INTERFACE SYSTEM Comment: As of 07 the Troponin Reference Range has changed from 0.0-1.5 ng/ml to 0.0- 1.3 ng/ml due to a change in testing methodology. CKMB 0.3 0.0 - 5.0 ng/mL INTERFACE SYSTEM 11/27/2007 12:3 2 AM AIDS NURSE Result Latasha Brennan MD CHEMISTRY ORDERABLES Edited Performing Organization Address [facility] Phone Number INTERFACE SYSTEM Refer to clinic/hospital department * POC GLUCOSE (11/26/2007 11:38 PM AIDS NURSE) GLUCOSE POC 98 60 - 100 mg/dL INTERFACE SYSTEM 11/26/2007 11:3 8 PM AIDS NURSE Result Latasha Brennan MD POINT OF CARE TESTING Edited Performing Organization Address [facility] Phone Number INTERFACE SYSTEM Refer to clinic/hospital department * CARDIAC ENZYMES (11/26/2007 6:40 PM AIDS NURSE) TROPONIN I <0.1 0.0 - 1.3 ng/mL INTERFACE SYSTEM Comment: As of 07 the Troponin Reference Range has changed from 0.0-1.5 ng/ml to 0.0- 1.3 ng/ml due to a change in testing methodology. CKMB 0.2 0.0 - 5.0 ng/mL INTERFACE SYSTEM 11/26/2007 6:40 PM AIDS NURSE Result Latasha Brennan MD CHEMISTRY ORDERABLES Edited Performing Organization Address [facility]/ZIP Co de Phone Number INTERFACE SYSTEM Refer to clinic/hospital department * (ABNORMAL) POC GLUCOSE (11/26/2007 5:04 PM AIDS NURSE) GLUCOSE POC 109(H) 60 - 100 mg/dL INTERFACE SYSTEM 11/26/2007 5:04 PM AIDS NURSE Result Latasha Brennan MD POINT OF CARE TESTING Edited Performing Organization Address [facility] Phone Number INTERFACE SYSTEM Refer to clinic/hospital department * (ABNORMAL) POC GLUCOSE (11/26/2007 3:51 PM AIDS NURSE) GLUCOSE POC 121(H) 60 - 100 mg/dL INTERFACE SYSTEM 11/26/2007 3:51 PM AIDS NURSE Result Latasha Brennan MD POINT OF CARE TESTING Edited Performing Organization Address [facility] Phone Number INTERFACE SYSTEM Refer to clinic/hospital department * CARDIAC ENZYMES (11/26/2007 12:47 PM AIDS NURSE) TROPONIN I <0.1 0.0 - 1.3 ng/mL INTERFACE SYSTEM Comment: As of 07 the Troponin Reference Range has changed from 0.0-1.5 ng/ml to 0.0- 1.3 ng/ml due to a change in testing methodology. CKMB 0.3 0.0 - 5.0 ng/mL INTERFACE SYSTEM 11/26/2007 12:4 7 PM AIDS NURSE Result Latasha Brennan MD CHEMISTRY ORDERABLES Edited Performing Organization Address [facility] de Phone Number INTERFACE SYSTEM Refer to clinic/hospital department * (ABNORMAL) POC GLUCOSE (11/26/2007 12:19 PM AIDS NURSE) GLUCOSE POC 112(H) 60 - 100 mg/dL INTERFACE SYSTEM 11/26/2007 12:1 9 PM AIDS NURSE Result Latasha Brennan MD POINT OF CARE TESTING Edited Performing Organization Address [facility] de Phone Number INTERFACE SYSTEM Refer to clinic/hospital department * (ABNORMAL) POC GLUCOSE (11/26/2007 8:57 AM AIDS NURSE) GLUCOSE POC 125(H) 60 - 100 mg/dL INTERFACE SYSTEM 11/26/2007 8:57 AM AIDS NURSE Result Latasha Brennan MD POINT OF CARE TESTING Edited Performing Organization Address [facility] de Phone Number INTERFACE SYSTEM Refer to clinic/hospital department * (ABNORMAL) POC GLUCOSE (11/26/2007 4:58 AM AIDS NURSE) GLUCOSE POC 132(H) 60 - 100 mg/dL INTERFACE SYSTEM 11/26/2007 4:58 AM AIDS NURSE Result Latasha Brennan MD POINT OF CARE TESTING Edited Performing Organization Address [facility] Phone Number INTERFACE SYSTEM Refer to clinic/hospital department * (ABNORMAL) POC GLUCOSE (11/25/2007 11:20 PM AIDS NURSE) GLUCOSE POC 150(H) 60 - 100 mg/dL INTERFACE SYSTEM 11/25/2007 11:2 0 PM AIDS NURSE Result Latasha Brennan MD POINT OF CARE TESTING Edited Performing Organization Address [facility] Phone Number INTERFACE SYSTEM Refer to clinic/hospital department * (ABNORMAL) POC GLUCOSE (11/25/2007 7:02 PM AIDS NURSE) GLUCOSE POC 136(H) 60 - 100 mg/dL INTERFACE SYSTEM 11/25/2007 7:02 PM AIDS NURSE Result Latasha Brennan MD POINT OF CARE TESTING Edited Performing Organization Address [facility] de Phone Number INTERFACE SYSTEM Refer to clinic/hospital department * (ABNORMAL) POC GLUCOSE (11/25/2007 4:34 PM AIDS NURSE) GLUCOSE POC 144(H) 60 - 100 mg/dL INTERFACE SYSTEM 11/25/2007 4:34 PM AIDS NURSE Result Latasha Brennan MD POINT OF CARE TESTING Edited Performing Organization Address [facility] Phone Number INTERFACE SYSTEM Refer to clinic/hospital department * (ABNORMAL) POC GLUCOSE (11/25/2007 12:02 PM AIDS NURSE) GLUCOSE POC 145(H) 60 - 100 mg/dL INTERFACE SYSTEM 11/25/2007 12:0 2 PM AIDS NURSE Result Latasha Brennan MD POINT OF CARE TESTING Edited Performing Organization Address [facility] Phone Number INTERFACE SYSTEM Refer to clinic/hospital department * (ABNORMAL) ACETONE QUALITATIVE, URINE (11/25/2007 6:23 AM AIDS NURSE) KETONES UA Small(A) Negative INTERFACE SYSTEM 11/25/2007 6:23 AM AIDS NURSE Result Latasha Brennan MD URINE ORDERABLES Edited Performing Organization Address [facility] Phone Number INTERFACE SYSTEM Refer to clinic/hospital department * (ABNORMAL) GLUCOSE URINALYSIS, QUALITATIVE (11/25/2007 6:23 AM AIDS NURSE) GLUCOSE, URINE 1000(A) Negative INTER FACE SYSTEM 11/25/2007 6:23 AM AIDS NURSE Result Latasha Brennan MD URINE ORDERABLES Edited Performing Organization Address [facility] de Phone Number INTERFACE SYSTEM Refer to clinic/hospital department * URINALYSIS (11/25/2007 6:23 AM AIDS NURSE) COLOR UA Yellow Straw INTERFACE SYSTEM CLARITY UA Clear Clear INTERFACE SYSTEM LEUKOCYTE ESTERASE UA NEGATIVE NEGATIVE INTERFACE SYSTEM NITRITE UA NEGATIVE NEGATIVE INTERFACE SYSTEM PH UA 5.5 5.0 - 9.0 INTERFACE SYSTEM PROTEIN UA NEGATIVE NEGATIVE INTERFACE SYSTEM UROBILINOGEN UA 0.2 0.2 INTE RFACE SYSTEM BILIRUBIN UA NEGATIVE NEGATIVE INTERFA CE SYSTEM BLOOD UA NEGATIVE NEGATIVE INTERFACE SYSTEM SPECIFIC GRAVITY UA 1.034 <=1.005 INTERFACE SYSTEM MICRO EXAM No No INTERFACE SYSTEM 11/25/2007 6:23 AM AIDS NURSE us Ermias Brennan MD URINE ORDERABLES Edited Performing Organization Address [facility] Phone Number INTERFACE SYSTEM Refer to clinic/hospital department * (ABNORMAL) HEMOGLOBIN A1C (11/25/2007 6:12 AM AIDS NURSE) HEMOGLOBIN A1C 10.8(H) 4.0 - 6.0 %A1C INTERFACE SYSTEM 11/25/2007 6:12 AM AIDS NURSE us Ermias Brennan MD CHEMISTRY ORDERABLES Edited Performing Organization Address [facility] Phone Number INTERFACE SYSTEM Refer to clinic/hospital department * TSH (11/25/2007 6:12 AM AIDS NURSE) TSH 0.470 0.350 - 5.500 uIU/ml INTERFACE SYSTEM 11/25/2007 6:12 AM AIDS NURSE Result Latasha Brennan MD CHEMISTRY ORDERABLES Edited Performing Organization Address [facility] Phone Number INTERFACE SYSTEM Refer to clinic/hospital department * HOMOCYSTEINE, SERUM (11/25/2007 6:12 AM AIDS NURSE) HOMOCYSTEINE, SERUM 7.5 5.0 - 12.5 umol/L INTERFACE SYSTEM 11/25/2007 6:12 AM AIDS NURSE us Ermias Brennan MD CHEMISTRY ORDERABLES Edited Performing Organization Address [facility] Phone Number INTERFACE SYSTEM Refer to clinic/hospital department * (ABNORMAL) LIPID PANEL (11/25/2007 6:12 AM AIDS NURSE) CHOLESTEROL 200 75 - 200 mg/dL INTERFACE SYSTEM HDL 35(L) 40 - 60 mg/dL INTERFACE SYSTEM TRIGLYCERIDE 81 0 - 200 mg/dL INTERFACE SYSTEM CALCULATED LDL CHOLESTEROL 149(H) 0 - 130 mg/dL INTERFACE SYSTEM CALCULATED TOTAL CHOLESTEROL TO HDL RATIO 5.71(H) 3.43 - 4.97 INTERFACE SYSTEM 11/25/2007 6:12 AM AIDS NURSE us Ermias Brennan MD CHEMISTRY ORDERABLES Edited Performing Organization Address [facility] de Phone Number INTERFACE SYSTEM Refer to clinic/hospital department * (ABNORMAL) COMPREHENSIVE METABOLIC PANEL (11/25/2007 6:12 AM AIDS NURSE) GLUCOSE 198(H) 70 - 110 mg/dL INTERFACE SYSTEM BUN 10 9 - 20 mg/dL INTERFACE SYSTEM CREATININE 0.7 0.7 - 1.5 mg/dL INTERFACE SYSTEM SODIUM 138 136 - 145 mEq/L INTERFACE SYSTEM POTASSIUM 3.9 3.5 - 5.0 mEq/L INTERFACE SYSTEM CHLORIDE 108 95 - 110 mEq/L INTERFACE SYSTEM CO2 25 22 - 32 mmol/l INTERFACE SYSTEM CALCIUM 8.8 8.4 - 10.5 mg/dL INTERFACE SYSTEM TOTAL PROTEIN 6.4 6.3 - 8.2 g/dL INTERFACE SYSTEM ALBUMIN 3.7 3.5 - 5.0 g/dL INTERFACE SYSTEM ALKALINE PHOSPHATASE 79 25 - 100 U/L INTERFACE SYSTEM AST 17 8 - 33 U/L INTERFACE SYSTEM ALT 15 4 - 36 IU/L INTERFACE SYSTEM BILIRUBIN TOTAL 0.8 0.3 - 1.2 mg/dL INTERFACE SYSTEM GLOBULIN (CALC) 2.7 2.4 - 3.9 g/dL INTERFACE SYSTEM ALBUMIN/GLOBULIN RATIO 1.4 1.0 - 2.3 INTERFACE SYSTEM ANION GAP 9 9 - 20 mEq/L INTERFACE SYSTEM OSMOLALITY, CALCULATED 289 275 - 295 mOsm/Kg INTERFACE SYSTEM 11/25/2007 6:12 AM AIDS NURSE us Ermias Brennan MD CHEMISTRY ORDERABLES Edited Performing Organization Address [facility] Phone Number INTERFACE SYSTEM Refer to clinic/hospital department * (ABNORMAL) POC GLUCOSE (11/25/2007 2:17 AM AIDS NURSE) GLUCOSE POC 200(H) 60 - 100 mg/dL INTERFACE SYSTEM 11/25/2007 2:17 AM AIDS NURSE us Ermias Brennan MD POINT OF CARE TESTING Edited Performing Organization Address [facility]/ZIP Co de Phone Number INTERFACE SYSTEM Refer to clinic/hospital department * (ABNORMAL) POC GLUCOSE (11/24/2007 11:14 PM AIDS NURSE) GLUCOSE POC 185(H) 60 - 100 mg/dL INTERFACE SYSTEM 11/24/2007 11:1 4 PM AIDS NURSE us Ermias Brennan MD POINT OF CARE TESTING Edited Performing Organization Address [facility] Phone Number INTERFACE SYSTEM Refer to clinic/hospital department * PT AND APTT (11/24/2007 7:35 PM AIDS NURSE) PROTIME 13.0 12.8 - 15.8 Secs INTERFACE SYSTEM Comment: As of 2007 note change in normal range. INR 0.9 INTERFACE SYSTEM Comment: Expected Values for INR: DVT/PE Goal INR 2.5; range 2.0 - 3.0 Valve Replacement Tissue Goal INR 2.5; range 2.0 - 3.0 Mechanical Goal INR 3.0; range 2.5 - 3.5 POST-NC Goal INR 2.5; range 2.0 - 3.0 or Goal 3.0; range 2.5 - 3.5 Atrial Fibrillation Goal INR 2.5; range 2.0 - 3.0 Ischemic Stroke Goal INR 2.5; range 2.0 - 3.0 For additional information see Guidelines for Anticoagulation available from the pharmacy [facility]. PTT 25.5 21.6 - 35.6 Secs INTERFACE SYSTEM Comment: Therapeutic Range: Hi-level PE/DVT heparin protocol 80.1 -95.0 sec Lo-level PE/DVT heparin protocol 67.1 - 80.0 sec Cardiac Heparin Protocol 67.1 - 85.0 sec Neuro Heparin Protocol 67.1 - 80.0 sec As of 10/14/2006 note change in APTT Normal Range. 11/24/2007 7:35 PM AIDS NURSE us Mak Conti MD HEMATOLOGY ORDERABLES Edit ed Performing Organization Address [facility] de Phone Number INTERFACE SYSTEM Refer to clinic/hospital department * (ABNORMAL) CBC WITH DIFFERENTIAL (11/24/2007 7:35 PM AIDS NURSE) WBC 5.8 4.8 - 10.8 K/ul INTERFACE SYSTEM RBC 5.28 4.60 - 6.20 Mil/ul INTERFACE SYSTEM HEMOGLOBIN 16.3 14.0 - 18.0 g/dL INTERFACE SYSTEM HEMATOCRIT 48.1 41.0 - 53.0 % INTERFACE SYSTEM MCV 91.1 84.0 - 103.0 Fl INTERFACE SYSTEM MCH 30.9 27.0 - 34.0 pg INTERFACE SYSTEM MCHC 33.9 30.0 - 35.0 g/dL INTERFACE SYSTEM RDW 12.7 11.0 - 14.5 % INTERFACE SYSTEM PLATELETS 132(L) 140 - 440 K/ul INTERFACE SYSTEM MPV 12.1 8.9 - 12.8 Fl INTERFACE SYSTEM NEUTROPHILS 62.7 42.2 - 75.2 % INTERFACE SYSTEM LYMPHOCYTES 26.5 24.0 - 44.0 % INTERFACE SYSTEM MONOCYTES 8.1 2.0 - 10.0 % INTERFACE SYSTEM EOSINOPHILS 2.4 0.0 - 7.0 % INTERFACE SYSTEM BASOPHILS 0.3 0.0 - 1.0 % INTERFACE SYSTEM NEUTROPHIL ABSOLUTE 3.6 2.0 - 8.0 K/ul INTERFACE SYSTEM LYMPHOCYTE ABSOLUTE 1.5 1.2 - 4.0 K/ul INTERFACE SYSTEM MONOCYTE ABSOLUTE 0.5 0.1 - 0.6 K/ul INTERFACE SYSTEM EOSINOPHIL ABSOLUTE 0.1 0.0 - 0.7 K/ul INTERFACE SYSTEM BASOPHILS ABSOLUTE 0.0 0.0 - 0.2 K/ul INTERFACE SYSTEM 11/24/2007 7:35 PM AIDS NURSE us Mak Conti MD HEMATOLOGY ORDERABLES Edit ed INTERFACE SYSTEM Refer to clinic/hospital department * (ABNORMAL) POC ISTAT 6 (11/24/2007 7:25 PM AIDS NURSE) SODIUM POC 138 136 - 145 mEq/L INTERFACE SYSTEM POTASSIUM POC 4.1 3.5 - 5.0 mEq/L INTERFACE SYSTEM CHLORIDE POC 104 95 - 110 mEq/L INTERFACE SYSTEM GLUCOSE POC 199(H) 70 - 110 mg/dL INTERFACE SYSTEM BLOOD UREA NITROGEN POC 12 9 - 20 mg/dL INTERFACE SYSTEM HEMATOCRIT POC 48.0 41.0 - 53.0 % INTERFACE SYSTEM HEMOGLOBIN POC 16.0 14.0 - 18.0 g/dL INTERFACE SYSTEM 11/24/2007 7:25 PM AIDS NURSE us Ermias Brennan MD POINT OF CARE TESTING Edited Performing Organization Address City/[facility] Co de Phone Number INTERFACE SYSTEM Refer to clinic/hospital department * POC CREATININE (11/24/2007 7:25 PM AIDS NURSE) CREATININE POC 0.8 0.7 - 1.5 mg/dL INTERFACE SYSTEM 11/24/2007 7:25 PM AIDS NURSE us Ermias Brennan MD POINT OF CARE TESTING Edited Performing Organization Address [facility] Co de Phone Number INTERFACE SYSTEM Refer to clinic/hospital department documented in this encounter Visit Diagnoses Diagnosis Hemiplegia, unspecified, affecting unspecified side (CMS/HCC) Hemiplegia, unspecified, affecting unspecified side Dysphagia, unspecified(787.20) Dysphagia, unspecified Type II or unspecified type diabetes mellitus without mention of complication, uncontrolled Chronic airway obstruction, not elsewhere classified (CMS/HCC) Chronic airway obstruction, not elsewhere classified Other speech disturbance Other and unspecified hyperlipidemia Tobacco use disorder Unspecified essential hypertension Chest pain, unspecified documented in this encounter Care Teams Group Director Experience Relationship Specialty Start Date End Date Jaylene Mccoy DO PCP - General Family Practice 02/08/15 documented as of this encounter
--- OUTSIDE RECORDS SUMMARY | 2025-05-20 21:51 | XMS_ITS | Patient Health Record ---
Author Organization [facility] Address [address] [place], [place] [id number] Care Team Providers Care Assistant Sales Director Name Role Phone Aishwarya Gonzalez Primary Care Provider Unavailab luana Burks MD, Tyrone Unavailable [phone] Gross TUBE DEPATCHER, DJ Unavailable Unavailable Basil CERRATOPCheri Unavailable [phone] Allergies No Known Allergies Results Component Value Reference Range Notes Saliva Swab Toxicology Scree n Reviewed date:01/04/2025 07:41:24 AM Interpretation:See notes Performing Lab: Notes/Report: See notes Saliva Swab Toxicology Scree n Reviewed date:01/04/2025 07:41:24 AM Interpretation:See notes Performing Lab: Notes/Report: See notes Embedded PDF Reviewed date:11/27/2024 07:42:39 AM Interpretation: Performing Lab: Notes/Report: [place], [id number] [address] [employer] [address] [address], , L ab Director: Lucia Cardoso MD, CLIA ID# [id number] [employer] Mobile Results Reviewed date:11/27/2024 07:42:31 AM Interpretation: Performing Lab:[id number] [place], [address] [address] [employer] [facility] [address] Lucia Cardoso MD Notes/Report: [place], [address] [address] [employer] [address] [address], , L ab Director: Lucia Cardoso MD, CLIA ID# [id number] OPIATES SCREEN positive 40 ng/mL Codeine negative 1 ng/mL Morphine negative 1 ng/mL Hydrocodone positive-1445.806 1 ng/mL Norhydrocodone Quantification positive-20.975 2 ng/mL Hydromorphone negative 1 ng/mL OXYCODONE SCREEN positive 40 ng/mL Oxycodone negative 1 ng/mL Noroxycodone Quantification negative 2 ng/mL Oxymorphone negative 1 ng/mL Buprenorphine Quantification negative 1 ng/mL Norbuprenorphine Quantification negative 2 ng/mL Fentanyl Quantification negative 0.2 ng/mL Norfentanyl Quantification negative 1 ng/mL METHADONE SCREEN negative 50 ng/mL Methadone negative 2 ng/mL EDDP (Methadone metabolite) negative 2 ng/mL Tapentadol Quantification negative 5 ng/mL Tramadol Quantification negative 5 ng/mL R-Oouxnqbeu-Achpgzbk Quantification negative 5 ng/ mL BENZODIAZEPINES SCREEN negative 20 ng/mL Alprazolam negative 1 ng/mL Clonazepam negative 1 ng/mL Clonazepam Metabolite Quantification negative 1 ng /mL Diazepam negative 1 ng/mL Nordiazepam negative 1 ng/mL Lorazepam negative 1 ng/mL Oxazepam negative 2 ng/mL Temazepam negative 1 ng/mL AMPHETAMINES SCREEN positive 50 ng/mL Amphetamine negative 5 ng/mL Carisoprodol Quantification negative 5 ng/mL Meprobamate Quantification negative 5 ng/mL Gabapentin Quantification negative 10 ng/mL Naltrexone Quantification negative 1 ng/mL Naltrexol (Naltrexone metabo lite) Quantification negative 1 ng/mL Pregabalin Quantification negative 5 ng/mL METHAMPHETAMINES SCREEN negative 50 ng/mL Methamphetamine negative 5 ng/mL COCAINE METABOLITES SCREEN negative 20 ng/mL Cocaine Quantification negative 2 ng/mL Cocaine Metabolite negative 2 ng/mL CANNABINOIDS SCREEN negative 8 ng/mL THC (Marijuana Component) negative 2 ng/mL MDMA negative 5 ng/mL 6-SHALOM (Heroin metabolite) Quantification negative 1 ng/mL PHENCYCLIDINE SCREEN negative 10 ng/mL Phencyclidine negative 1 ng/mL Reason For Referral No Information Medications Medication SIG (Take, Route, Frequency, Duration) Notes Start Date End Date Status gabapentin 400 mg 1 cap orally Q12H Active acetaminophen-hydrocodone 325 mg-10 mg 1 tab orally Q4-6H prn pain (max 3/day; hold within 4H of planned sleep) Active acetaminophen-hydrocodone 325 mg-10 mg 1 tab orally Q4-6H prn pain (max 3/day; hold within 4H of planned sleep) Active Trulicity Pen 1.5 mg/0.5 mL INJECT 1.5mg SUB-Q ONCE A WEEK for 30 Active tamsulosin 0.4 mg 1 cap orally once a day Active metFORMIN 1000 mg 1 tab orally 2 times a day Active clopidogrel 75 mg 1 tab(s) orally once a day for 30 day(s) Active atorvastatin 20 mg 1 tab orally once a day Active Social History Tobacco Use: [...] ast year? No Points 0 Interpretation Negative Problems Problem Type SNOMED Code ICD Code Onset Dates Problem Status W/U Status Risk Notes Problem Solitary sacroiliitis (351482798) Sacroiliitis, not elsewhere classified (M46.1) Active confirmed Problem Lumbosacral spondylosis without myelopathy (89672048) Spondylosis without myelopathy or radiculopathy, lumbar region (M47.816) Active confirmed Problem High risk drug monitoring status (676726404) skilled nursing (current) use of opiate analgesic (Z79.891) Active confirmed Problem Hypersomnia (39173218) Hypersomnia, unspecified (G47.10) Active confirmed Problem Chronic pain (68742433) Other chronic pain (G89.29) Active confirmed Problem Acquired spondylolisthesis (349264309) Spondylolisthesis , lumbar region (M43.16) Active confirmed Problem 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 disc disorder (983470212877525) Intervertebral disc disorders with radiculopathy, lumbar region (M51.16) Active confirmed Problem Long-term current use of drug therapy (878897243) 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.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) Active confirmed Problem Neurogenic claudication (405272335) Spinal stenosis, lumbar region with neurogenic claudication (M48.062) Active confirmed Problem Low back pain (090945430) Low back pain, unspecified (M54.50) Active confirmed Problem Pain in lumbar spine (351463348) Vertebrogenic low back pain (M54.51) Active confirmed Vital Signs Temperature 98.0 degrees Fahrenheit 11/22/2024 Blood pressure diastolic 81 mm Hg 11/22/2024 Oximetry 96 % 11/22/2024 Height 72 in 11/22/2024 Blood pressure systolic 132 mm Hg 11/22/2024 Weight 163 lbs 11/22/2024 BMI 22.1 kg/m2 11/22/2024 Encounters Encounter Location Date Provider [facility] [address] [place], [place] [id number] 07/18/2024 Cheri Gracia Vertebrogenic low ba ck pain M54.51 ; Other chronic pain G89.29 ; Spinal stenosis, lumbar region with neurogenic claudication M48.062 and Hypersomnia, unspecified G47.10 [email or web address] [place] [address] [place], [place] [id number] 09/12/2024 Tyrone Burks Vertebrogenic low ba ck pain M54.51 ; Other chronic pain G89.29 ; Spinal stenosis, lumbar region with neurogenic claudication M48.062 and Hypersomnia, unspecified G47.10 [email or web address] [address] [place], [place] [id number] 11/22/2024 Tyrone Burks Vertebrogenic low ba ck pain M54.51 ; Other chronic pain G89.29 ; Spinal stenosis, lumbar region with neurogenic claudication M48.062 ; Hypersomnia, unspecified G47.10 and 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 09/12/2024 Other chronic pain (ICD-10 - G89.29) Patient reports that taking his pain medication allows him to be more active. Plan to continue oral opioid medication management. 09/12/2024 Vertebrogenic low back pain (ICD-10 - M54.51) Chronic axial lumbosacral spine pain. 11/22/2024 Vertebrogenic low back pain (ICD-10 - M54.51) Chronic axial lumbosacral spine pain. 11/22/2024 Other chronic pain (ICD-10 - G89.29) Patient reports that taking his pain medication allows him to complete light chores. Plan to continue oral opioid medication management. 09/12/2024 Spinal stenosis, lumbar region with neurogenic claudication (ICD-10 - M48.062) Patient reports some benefit with use of gabapentin for his lower extremity symptoms. Plan to continue. 07/18/2024 Other chronic pain (ICD-10 - G89.29) Patient reports that taking his pain medication allows him to spend more time on his feet. Plan to continue oral opioid medication management. 07/18/2024 Spinal stenosis, lumbar region with neurogenic claudication (ICD-10 - M48.062) Patient reports some benefit with use of gabapentin for his BLE symptoms. Plan to continue. 07/18/2024 Hypersomnia, unspecified (ICD-10 - G47.10) Plan to continue to restrict opioid use in relation to sleep for safety concerns. 09/12/2024 Hypersomnia, unspecified (ICD-10 - G47.10) Plan to continue to restrict opioid use in relation to sleep for safety concerns. 11/22/2024 Spinal stenosis, lumbar region with neurogenic claudication (ICD-10 - M48.062) Patient reports some benefit with use of gabapentin for his lower extremity symptoms. Plan to continue. 11/22/2024 Hypersomnia, unspecified (ICD-10 - G47.10) Plan to continue to restrict opioid use in relation to sleep for safety concerns. 11/22/2024 skilled nursing (current) use of opiate analgesic (ICD-10 - Z79.891) 2022 opioid (OUD) risk tool score = 3. This places the patient in the high risk category, warranting more frequent screening. Plan 2 month visit pending continued compliance with patient's Treatment Agreement. Plan oral fluid toxicology screen today to monitor for presence of any unprescribed or illicit controlled substance(s), as well as prescribed hydrocodone. 09/12/2024 Other The service was provided by JUDITH Gibbons, as part of the ongoing care plan established by Tyrone Burks MD, who was present in the office for direct supervision during the encounter. 01/11/2025 Other The service was provided by JUDITH Gibbons, as part of the ongoing care plan established by Tyrone Burks MD, who was present in the office for direct supervision during the encounter. 11/22/2024 Other The service was provided by JUDITH Gibbons, as part of the ongoing care plan established by Tyrone Burks MD, who was present in the office for direct supervision during the encounter. 07/18/2024 Other Plan Of Treatment No Information Insurance Providers Payer Name Payer Address Payer Phone Subscriber Number Group Number Insured Name Patient Relationship to Insured Coverage Start Date Coverage End Date [employer] [address] [place] [address] [id number] Mariaelena Treviño Self - patient is the insured [place] [address] [place] [id number] Mariaelena Treviño Self - patient is the insured Medical (General) History Medical History History ICD Code Chronic pain Low back pain Lumbar spondylosis, disc disease, spinal stenosis and spondylolisthesis Sacroiliitis Diabetes mellitus type II Diabetic foot Hypertension Toenail deformity Vitamin D deficiency Poor mobility Foot drop, left Smoker unmotivated to quit as per extena l chart review Tobacco use, possible COPD CVA Depression Left foot ulcer, history of wound care c linic treatment Sleep disorder with hypersom parag and snoring (patient declined prior offer for a sleep study and possible treatment) Surgical History Surgery Date(Month/Year) Cataract surgery, right Pin placement, left great toe Knee replacement, left, performed at [facility] by Dr. Padron, 2018 Angioplasty with placement o f stent, left leg, performed at [facility] by Dr. Contreras, 06/2024 Hospitalization History Reason Date(Month/Year) Stroke, treated at [facility] in [place], [place], 2007
--- OUTSIDE RECORDS SUMMARY | 2025-05-20 21:51 | XMS_ITS | Encounter Summary ---
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 Colon, 60 cm, biopsy - hyperplastic polyp. Edd Carl MD (Electronically signed by) Verified: 06/13/08 PKT/TKB Clinical Information Polyp. Specimen Source AColon, 60 CM Microscopic Description Microscopic examination was performed. Gross Description Part A. Submitted in a container of formalin labelled Brown, #1, 4 mm colon polyp at 60 cm is a mora soft tissue fragment measuring 0.3 x 0.2 x 0.2 cm. The specimen is submitted entirely in A1. DLS/TKB INTERFACE SYSTEM 06/11/2008 8:38 AM CDT us Ludwig Dykes DO PATHOLOGY/CYTOLOGY ORDERABLES Final Result INTERFACE SYSTEM Refer to clinic/hospital department documented in this encounter Visit Diagnoses Not on filedocumented in this encounter Care Teams Tandem Mill Sticker Relationship Specialty Start Date End Date Jaylene Mccoy DO PCP - General Family Practice 02/08/15 documented as of this encounter
--- OUTSIDE RECORDS SUMMARY | 2025-05-20 21:51 | XMS_ITS | Encounter Summary ---
Author Organization [facility] Address [address] [place] [address] Care Team Providers Care Labor Delivery Rn Name Role Phone Jaylene Mccoy DO Primary Care Provider [phone] Encounter Details Date Type Department Care Team (Late st Contact Info) Description 06/07/2015 Ancillary Orders [facility] Admitting [address] [place] [id number] Yo Hunt, DPMar [address] [place] [address] Hammer toe (Primary Dx) Social History Tobacco Use Types Packs/Day Years Used Date Smoking Tobacco: Every Day Cigarettes Alcohol Use Standard Drinks/Week Comments Yes 0 (1 standard drink = 0.6 oz pur e alcohol) rarely Sex and Gender Information Value Date Recorded Sex Assigned at Not on file 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
--- NOTE | 2025-05-20 21:53 | XRR_ITS ---
PROCEDURE INFORMATION: Exam: XR Left Ankle Exam date and time: 05/20/2025 10:01 PM Age: 70 years old Clinical indication: Other: Open wound; Open diabetic wound to left ankle at area of fibular malleolus TECHNIQUE: Imaging protocol: Radiologic exam of the left ankle. Views: 3 or more views. COMPARISON: CT angio abd aorta runof [id number] 06/01/2024 8:10 AM FINDINGS: Bones/joints: Mild periosteal reaction in the distal lateral fibula, with a mild permeative appearance on the oblique view. The other bones are intact. Soft tissues: Soft tissue swelling and skin ulceration in the lateral ankle. XR/XR ankle LT min 3V* [id number] IMPRESSION: Findings suspicious for osteomyelitis involving the distal lateral fibula, deep to a region of skin ulceration.
--- NOTE | 2025-05-20 21:53 | XRR_ITS ---
PROCEDURE INFORMATION: Exam: XR Chest Exam date and time: 05/20/2025 10:01 PM Age: 70 years old Clinical indication: Other: Weakness/hypotension; General weakness with hypotension. History of copd. ; Additional info: Lethergy TECHNIQUE: Imaging protocol: Radiologic exam of the chest. Views: 1 view. COMPARISON: CR XR chest 1V portable [id number] 01/08/2025 3:48 PM FINDINGS: Lungs: Calcified left hilar lymph nodes. New patchy airspace opacities in the left lung base. Scarring in the peripheral right upper lobe. The lungs are otherwise clear. Pleural spaces: Unremarkable. No pleural effusion. No pneumothorax. Heart/Mediastinum: Unremarkable. No cardiomegaly. Bones/joints: Degenerative endplate changes in the thoracic spine. No acute fracture. XR/XR chest 1V portable [id number] IMPRESSION: Pneumonia versus aspiration in the left lung base.
--- NOTE | 2025-05-20 21:56 | ECG_ITS ---
[employer] Triage Test Date: 2025-05-20 Pat Name: Mariaelena Treviño Department: Room: [facility] Gender: Male Mail Manager: : 1955 Requested By: Ibeth Francis Order Number: [id number] Sami MD: Janna Morley M.D. Measurements Intervals [place] Rate: 95 P: 69 UT: 156 QRS: 71 QRSD: 90 T: 57 QT: 350 QTc: 442 Interpretive Statements SINUS RHYTHM SEPTAL MYOCARDIAL INFARCTION , OF INDETERMINATE AGE [40+ ms Q WAVE IN V1/V2] Compared to ECG 01/08/2025 16:28:43 No significant changes Electronically Signed On 05-22-2025 09:58:11 CDT by Janna Morley M.D. [email or web address]
[2025-05-20 22:02] VITALS: BP 91/56; PULSE 99; RESP 16; O2SAT 93
[2025-05-20 22:07] LABS: Hematocrit 44.1 % (37-53); Hemoglobin 14.70 g/dL (11.27-16.99); Mean Corpuscular HGB Conc 33.3 g/dL (30-55); Mean Corpuscular Hemoglobin 31.5 pg (27-33); Mean Corpuscular Volume 94.4 fl (82-101); Nucleated Red Blood Cells % 0 %; Platelet Count 166 10^3/cmm (157-399); Red Blood Count 4.67 10^6/uL (3.85-5.65); White Blood Count 13.54 10^3/uL (3.29-11.43)
[2025-05-20 22:25] LABS: Troponin(5th) Baseline 28 ng/L (0-15)
[2025-05-20 22:26] LABS: Lactic Sepsis W/Reflex 2.4 mmol/L (0.5-2.2)
[2025-05-20 22:27] LABS: Reflex Lactate Order REFLEX LACTIC ORDERD
--- NOTE | 2025-05-20 22:30 | W.ED.FEVER ---
Documented by User: LORIN Esquivel 05/21/25 01:39 HPI - Fever General: Chief Complaint: Fever Stated Complaint: FEVER/ LOW BP Time Seen by Provider: 05/20/25 21:52 History of Present Illness: Patient is a 70-year-old diabetic with left ankle diabetic wound, PAD, discharge after revascularization 04/10/2025 on continued wound care of his left ankle, presented to the ED with 2 days of lethargy, not feeling well. Ex- is at bedside and notes that patient has been less interactive, not hardly able to stand, and her sons have had to pull him up to stand and go to the bathroom. She states this is an acute change and is worsening today. Patient admits to subjective fever and chills. Memory and confusion is worse today. In triage she had 102.2 fever with blood pressure 84/48. Related Data Home Medications ?Medication ?Instructions ?Recorded ?Confirmed hydrocodone 10 mg-acetaminophen 1 tab PO Q8H PRN Pain 03/21/24 05/02/25 325 mg tablet ketoconazole 2 % shampoo 1 applic topical .twice a week PRN 01/08/25 05/02/25 scalp irritation metformin 1,000 mg tablet 1,000 mg PO BID 01/08/25 05/02/25 Held on 04/10/25. Instructions: Resume on 04/12/25. mupirocin 2 % topical ointment 1 applic topical TID PRN skin 01/08/25 05/02/25 irriyation tamsulosin 0.4 mg capsule 0.4 mg PO DAILY 01/08/25 05/02/25 MetaHoney Gel 1 applic topical BID PRN as 04/06/25 05/02/25 directed gabapentin 400 mg capsule 400 mg PO BID 04/06/25 05/02/25 tizanidine 4 mg tablet 4 mg PO BEDTIME PRN Muscle 04/06/25 05/02/25 Spasticity Previous Rx's ?Medication ?Instructions ?Recorded blood sugar diagnostic #100 ea 10/24/24 lancets #200 ea 10/24/24 nicotine 14 mg/24 hr daily 1 patch transdermal DAILY #28 ea 12/21/24 transdermal patch aspirin 81 mg tablet,delayed 81 mg PO DAILY #90 tabs 04/10/25 release atorvastatin 20 mg tablet 20 mg PO QPM #90 tabs 05/02/25 clopidogrel 75 mg tablet 75 mg PO DAILY #90 tabs 05/02/25 dulaglutide 3 mg/0.5 mL 3 mg (0.5 mL) SUBCUT ONCE 30 days 05/02/25 subcutaneous pen injector #15 mL (Trulicity) memantine 10 mg tablet 10 mg PO DAILY 30 days #30 tabs 05/15/25 Allergies Allergy/AdvReac Type Severity Reaction Status Date / Time No Known Allergies Allergy Verified 05/20/25 21:45 PFS ED PFSH: Medical History (Updated 05/21/25 @ 01:39 by LORIN Esquivel) Mixed hyperlipidemia Memory loss of unknown cause Anemia Leg wound, left Tobacco dependence Nail deformity 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 Onychomycosis Dandruff Cellulitis of left foot Mild aortic stenosis Enrolled in chronic care management Fatigue Heart murmur Chronic instability of ankle Chronic ankle pain Prostate cancer screening Smoker unmotivated to quit Vitamin D deficiency Essential hypertension Toenail deformity Diabetic foot Encounter for long-term opiate analgesic use Opioid contract exists Long-term use of high-risk medication Chronic low back pain Surgical History S/P knee replacement LEFT KNEE REPLACEMENT 2019 Hx of toe surgery PIN PLACEMENT IN LEFT GREAT TOE Family History Other Cancer Congestive heart failure (CHF) Social History Smoking and tobacco/nicotine status: former use of tobacco/nicotine Alcohol intake: current Alcohol intake frequency: holidays/special occasions only Alcohol type: beer Substance/Drug Use: never Physical Exam Const: COMMON NORMALS: no acute distress, average body habitus and patient oriented x3 GENERAL APPEARANCE: cooperative, ill appearing and other (confusion) HENMT: COMMON NORMALS: normocephalic and atraumatic HEAD & SCALP: normocephalic and atraumatic Lymph: LYMPHATIC: no lymphadenopathy noted Chest: COMMONS NORMALS: normal inspection of the chest and normal palpation of entire chest wall Resp: COMMON NORMALS: normal respiratory effort EFFORT & INSPECTION: Yes able to speak in complete sentences AUSCULTATION: crackles Laterality: bilateral and posterior Cardio: COMMON NORMALS: regular rate and regular rhythm RATE: regular rate RHYTHM: regular rhythm GI: COMMON NORMALS: Normal to inspection, nondistended, normoactive bowel sounds present, Soft to palpation and non-tender PALPATION: Yes Soft to palpation : COMMON NORMALS: Yes no CVA tenderness BLADDER/KIDNEY EXAM: Yes no CVA tenderness Back/Pelvis: COMMON NORMALS: no CVA tenderness and thoracic and lumbar spine normal to inspection Extremity: COMMON NORMALS: normal to inspection, full ROM and capillary refill normal Neuro: COMMON NORMALS: patient oriented x3, CN's II-XII intact bilaterally and moves all extremities Psych: COMMON NORMALS: mental status grossly normal and Normal thought process present THOUGHT PROCESS: Normal thought process present Skin: COMMON NORMALS: no rashes or lesions noted and no wounds GENERAL SKIN EXAM: no rashes or lesions noted Course Reevaluation(s): Reevaluation #1: Patient is improved after fluid bolus, antibiotics are running. He is responsive. ABG drawn. Consultations: Consultation #1: D/w Dr. Espinosa, accepted pt Vital Signs: Vital signs: Vital Signs Temperature 98.0 F 05/21/25 02:00 Pulse Rate 77 05/21/25 03:00 Respiratory Rate 23 H 05/21/25 03:00 Blood Pressure 95/48 05/21/25 03:00 Pulse Oximetry 98 05/21/25 03:00 Oxygen Delivery Me thod Nasal Cannula 05/21/25 02:01 Oxygen Flow Rate 2 05/20/25 22:02 MDM - Fever Medical Decision Making Patient is a 70-year-old gentleman that presented with increasing lethargy, shortness of breath, and not feeling well. He was accompanied by his ex-. This is occurred for the last 2 days. On physical exam patient was noted to be hypotensive with MAP 55 on arrival, and appeared ill. He required fluid resuscitation for sepsis. He was found to have left lower lobe pneumonia. Given his recent hospitalization, multiple comorbidities, he was treated with vancomycin, cefepime, doxycycline. Cultures were obtained prior to antibiotics. Patient received 2 L IV fluids. His MAP is now greater than 70. He is more interactive, and appears less confused. Discussed the case with on-call hospitalist that has accepted admission to the intensive care unit. All of his questions and his ex-'s questions were answered to their satisfaction. This patient was originally seen by Ms. Penny PA-C. I agree with her history, evaluation, and management Medical Records I reviewed the patient's medical records. Lab Data 05/20/25 21:55 05/20/25 21:55 Radiology Impressions Ankle X-Ray 05/20/25 21:53 IMPRESSION: Findings suspicious for osteomyelitis involving the distal lateral fibula, deep to a region of skin ulceration. Chest X-Ray 05/20/25 21:53 IMPRESSION: Pneumonia versus aspiration in the left lung base. Laboratory Results WBC 13.54 10^3/uL (3.29-11.43) H 05/20/25 21:55 RBC 4.67 10^6/uL (3.85-5.65) 05/20/25 21:55 Hgb 14.70 g/dL (11.27-16.99) 05/20/25 21:55 Hct 44.1 % (37-53) 05/20/25 21:55 MCV 94.4 fl (82-101) 05/20/25 21:55 MCH 31.5 pg (27-33) 05/20/25 21:55 MCHC 33.3 g/dL (30-55) 05/20/25 21: RDW 13.5 % (12.1-15.1) 05/20/25 21:55 Plt Count 166 10^3/cmm (157-399) 05/20/25 21:55 MPV 10.3 fL (7.4-10.4) 05/20/25 21:55 Neut % (Auto) 85.9 % 05/20/25 21:55 Lymph % (Auto) 6.9 % 05/20/25 21:55 [place] % (Auto) 5.5 % 05/20/25 21:55 Eos % (Auto) 0.1 % 05/20/25 21: Baso % (Auto) 0.4 % 05/20/25 21:55 Neut # (Auto) 11.64 10^3/uL (1.8-7.7) H 05/20/25 21:55 Lymph # (Auto) 0.9 10^3/uL (0.8-4.8) 05/20/25 21:55 [place] # (Auto) 0.7 10^3/uL (0.2-0.9) 05/20/25 21:55 Eos # (Auto) 0.0 10^3/uL (0.0-0.8) 05/20/25 21:55 Baso # (Auto) 0.1 10^3/uL (0.0-0.1) 05/20/25 21:55 Nucleated RBC % (auto) 0 % 05/20/25 21:55 Nucleated RBCs # 0.0 /100WBC 05/20/25 21:55 Specimen Type Arterial 05/20/25 23:23 Sample Site Brachial, right 05/20/25 23:23 ABG pH 7.41 (7.35-7.45) 05/20/25 23:23 ABG pCO2 36.3 mmHg (35-45) 05/20/25 23:23 ABG pO2 78.5 mmHg (80.0-100.0) L 05/20/25 23:23 ABG PO2/FiO2 Ratio 280 05/20/25 23:23 ABG HCO3 23.1 mmol/L (22-26) 05/20/25 23:23 ABG O2 Saturation 96.1 05/20/25 23:23 ABG Base Excess -1.1 mmol/L (-2.0-2.0) 05/20/25 23:23 Aaron Test Pos 05/20/25 23:23 A-a O2 Gradient 9.8 mmHg (5-10) 05/20/25 23:23 Hematocrit 38.4 % (42-52) L 05/20/25 23:23 Hgb O2 Saturation 94.3 % (95-100) L 05/20/25 23:23 Carboxyhemoglobin 1.4 %THgb (0.4-20.1) 05/20/25 23:23 Methemoglobin 0.4 % (0.4-1.5) 05/20/25 23:23 Total Hemoglobin 12.5 g/dL (14-18) L 05/20/25 23:23 Sodium 135.0 mmol/L (131-143) 05/20/25 23:23 Potassium 3.5 mmol/L (3.5-5.0) 05/20/25 23:23 Glucose 195.0 mg/dL (70-115) H 05/20/25 23:23 Ionized Calcium 1.2 mmol/L (1.1-1.4) 05/20/25 23:23 O2 Delivery Device Nc 05/20/25 23:23 O2 Liters/Min 2.0 % 05/20/25 23:23 FiO2 28.0 % 05/20/25 23:23 General Manager [employer] ID [email or web address] 05/20/25 23:23 Sodium 133 mmol/L (136-145) L 05/20/25 21:55 Potassium 3.8 mmol/L (3.5-5.1) 05/20/25 21:55 Chloride 95 mmol/L (98-107) L 05/20/25 21:55 Carbon Dioxide 22 mmol/L (22-29) 05/20/25 21:55 Anion Gap 19.8 (5-19) H 05/20/25 21:55 BUN 15 mg/dL (8-23) 05/20/25 21:55 Creatinine 0.8 mg/dL (0.7-1.2) 05/20/25 21:55 GFR Calculation Not Reportable 05/20/25 21:55 Glucose 188 mg/dL (65-115) H 05/20/25 21:55 POC Glucose 198 mg/dL (70-110) H 05/20/25 22:20 Calculated Osmolality 282 mOsm/kg (285-295) L 05/20/25 21:55 Lactic Acid 2.4 mmol/L (0.5-2.2) H 05/20/25 21:55 Calcium 9.4 mg/dL (8.5-10.5) 05/20/25 21:55 Phosphorus 2.4 mg/dL (2.5-4.5) L 05/20/25 21:55 Total Bilirubin 1.4 mg/dL (0.15-1.2) H 05/20/25 21:55 AST 12 U/L (0-40) 05/20/25 21:55 ALT 12 U/L (0-41) 05/20/25 21:55 Alkaline Phosphatase 134 U/L (40-130) H 05/20/25 21:55 Troponin T Baseline 28 ng/L (0-15) H 05/20/25 21:55 Troponin T 120 Minute 27.95 ng/L (0-15) H 05/20/25 23:56 Delta Troponin T -0.05 ABS# (0-10) L 05/20/25 23:56 Total Protein 7.7 g/dL (6.6-8.7) 05/20/25 21:55 Albumin 3.9 g/dL (3.5-5.2) 05/20/25 21:55 Globulin 3.8 g/dL (1.3-4.6) 05/20/25 21:55 Procalcitonin 1.75 ng/mL (0-0.5) H 05/20/25 21:55 Urine Color Yellow (Yellow) 05/21/25 00:01 Urine Appearance Clear (CLEAR) 05/21/25 00:01 Urine pH 6.5 (5-7) 05/21/25 00:01 Ur Specific [place] 1.013 (1.005-1.030) 05/21/25 00:01 Urine Protein Trace (Negative) A 05/21/25 00:01 Urine Glucose (UA) 1+ (Normal) H 05/21/25 00:01 Urine Ketones Negative (Negative) 05/21/25 00:01 Urine Blood Negative (Negative) 05/21/25 00:01 Urine Nitrate Negative (Negative) 05/21/25 00:01 Urine Bilirubin Negative (Negative) 05/21/25 00:01 Urine Urobilinogen 1.0 mg/dL (Negative) 05/21/25 00:01 Ur Leukocyte Esterase Negative (Negative) 05/21/25 00:01 Urine RBC 0-2 /hpf (0-2) 05/21/25 00:01 Urine WBC 0-5 /hpf (0-5) 05/21/25 00:01 Ur Squamous Epith Cells 0-5 /hpf (0-5) 05/21/25 00:01 Amorphous Sediment Not Reportable 05/21/25 00:01 Urine Bacteria None seen /hpf (NONE) 05/21/25 00:01 Hyaline Casts 0-4 /lpf H 05/21/25 00:01 Influenza A (PCR) Negative (Negative) 05/20/25 22:25 Influenza Type B (PCR) Negative (Negative) 05/20/25 22:25 RSV (PCR) Negative (Negative) 05/20/25 22:25 SARS-CoV-2 (PCR) Negative (Negative) 05/20/25 22:25 All radiology interpretation(s) finalized by discharge ED provider radiology interpretation(s): left Lower lobe infiltrate Discharge Plan Discharge Patient Disposition: Admitted As Inpatient Admit Provider: Corrina Espinosa Clinical Impression: Acute metabolic encephalopathy, Elevated bilirubin, Acute lactic acidosis Sepsis Qualifiers: Sepsis type: sepsis due to unspecified organism Sepsis acute organ dysfunction status: with acute organ dysfunction Severe sepsis acute organ dysfunction type: encephalopathy Severe sepsis shock status: with septic shock Qualified Code(s): A41.9 - Sepsis, unspecified organism Pneumonia Qualifiers: Pneumonia type: due to unspecified organism Laterality: left Lung location: lower lobe of lung Qualified Code(s): J18.9 - Pneumonia, unspecified organism Hypotension Qualifiers: Hypotension type: hypotension due to hypovolemia Qualified Code(s): E86.1 - Hypovolemia Condition: Stable Coding Level of Care Code ED Foster Parent for Chg Fwd Documented by User: Louis Ahumada DO 05/21/25 05:03 HPI - Fever General: Chief Complaint: Fever Stated Complaint: FEVER/ LOW BP Time Seen by Provider: 05/20/25 21:52 Related Data Home Medications ?Medication ?Instructions ?Recorded ?Confirmed hydrocodone 10 mg-acetaminophen 1 tab PO Q8H PRN Pain 03/21/24 05/02/25 325 mg tablet ketoconazole 2 % shampoo 1 applic topical .twice a week PRN 01/08/25 05/02/25 scalp irritation metformin 1,000 mg tablet 1,000 mg PO BID 01/08/25 05/02/25 Held on 04/10/25. Instructions: Resume on 04/12/25. mupirocin 2 % topical ointment 1 applic topical TID PRN skin 01/08/25 05/02/25 irriyation tamsulosin 0.4 mg capsule 0.4 mg PO DAILY 01/08/25 05/02/25 MetaHoney Gel 1 applic topical BID PRN as 04/06/25 05/02/25 directed gabapentin 400 mg capsule 400 mg PO BID 04/06/25 05/02/25 tizanidine 4 mg tablet 4 mg PO BEDTIME PRN Muscle 04/06/25 05/02/25 Spasticity Previous Rx's ?Medication ?Instructions ?Recorded blood sugar diagnostic #100 ea 10/24/24 lancets #200 ea 10/24/24 nicotine 14 mg/24 hr daily 1 patch transdermal DAILY #28 ea 12/21/24 transdermal patch aspirin 81 mg tablet,delayed 81 mg PO DAILY #90 tabs 04/10/25 release atorvastatin 20 mg tablet 20 mg PO QPM #90 tabs 05/02/25 clopidogrel 75 mg tablet 75 mg PO DAILY #90 tabs 05/02/25 dulaglutide 3 mg/0.5 mL 3 mg (0.5 mL) SUBCUT ONCE 30 days 05/02/25 subcutaneous [facility] memantine 10 mg tablet 10 mg PO DAILY 30 days #30 tabs 05/15/25 Allergies Allergy/AdvReac Type Severity Reaction Status Date / Time No Known Allergies Allergy Verified 05/20/25 21:45 PFS ED PFSH: Medical History (Updated 05/21/25 @ 01:39 by LORIN Esquivel) Mixed hyperlipidemia Memory loss of unknown cause Anemia Leg wound, left Tobacco dependence Nail deformity 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 Onychomycosis Dandruff Cellulitis of left foot Mild aortic stenosis Enrolled in chronic care management Fatigue Heart murmur Chronic instability of ankle Chronic ankle pain Prostate cancer screening Smoker unmotivated to quit Vitamin D deficiency Essential hypertension Toenail deformity Diabetic foot Encounter for long-term opiate analgesic use Opioid contract exists Long-term use of high-risk medication Chronic low back pain Surgical History S/P knee replacement LEFT KNEE REPLACEMENT 2019 Hx of toe surgery PIN PLACEMENT IN LEFT GREAT TOE Family History Other Cancer Congestive heart failure (CHF) Social History Smoking and tobacco/nicotine status: former use of tobacco/nicotine Alcohol intake: current Alcohol intake frequency: holidays/special occasions only Alcohol type: beer Substance/Drug Use: never Course Vital Signs: Vital signs: Vital Signs Temperature 98.0 F 05/21/25 02:00 Pulse Rate 77 05/21/25 03:00 Respiratory Rate 23 H 05/21/25 03:00 Blood Pressure 95/48 05/21/25 03:00 Pulse Oximetry 98 05/21/25 03:00 Oxygen Delivery Me thod Nasal Cannula 05/21/25 02:01 Oxygen Flow Rate 2 05/20/25 22:02 MDM - Fever Medical Decision Making This patient was originally seen by Mrs. Ann PA-C. I agree with her history, evaluation, and management Lab Data 05/20/25 21:55 05/20/25 21:55 Radiology Impressions Ankle X-Ray 05/20/25 21:53 IMPRESSION: Findings suspicious for osteomyelitis involving the distal lateral fibula, deep to a region of skin ulceration. Chest X-Ray 05/20/25 21:53 IMPRESSION: Pneumonia versus aspiration in the left lung base. Laboratory Results WBC 13.54 10^3/uL (3.29-11.43) H 05/20/25 21:55 RBC 4.67 10^6/uL (3.85-5.65) 05/20/25 21:55 Hgb 14.70 g/dL (11.27-16.99) 05/20/25 21:55 Hct 44.1 % (37-53) 05/20/25 21:55 MCV 94.4 fl (82-101) 05/20/25 21:55 MCH 31.5 pg (27-33) 05/20/25 21:55 MCHC 33.3 g/dL (30-55) 05/20/25 21:55 RDW 13.5 % (12.1-15.1) 05/20/25 21:55 Plt Count 166 10^3/cmm (157-399) 05/20/25 21:55 MPV 10.3 fL (7.4-10.4) 05/20/25 21:55 Neut % (Auto) 85.9 % 05/20/25 21:55 Lymph % (Auto) 6.9 % 05/20/25 21:55 [place] % (Auto) 5.5 % 05/20/25 21:55 Eos % (Auto) 0.1 % 05/20/25 21:55 Baso % (Auto) 0.4 % 05/20/25 21:55 Neut # (Auto) 11.64 10^3/uL (1.8-7.7) H 05/20/25 21:55 Lymph # (Auto) 0.9 10^3/uL (0.8-4.8) 05/20/25 21:55 [place] # (Auto) 0.7 10^3/uL (0.2-0.9) 05/20/25 21:55 Eos # (Auto) 0.0 10^3/uL (0.0-0.8) 05/20/25 21:55 Baso # (Auto) 0.1 10^3/uL (0.0-0.1) 05/20/25 21:55 Nucleated RBC % (auto) 0 % 05/20/25 21: Nucleated RBCs # 0.0 /100WBC 05/20/25 21:55 Specimen Type Arterial 05/20/25 23:23 Sample Site Brachial, right 05/20/25 23:23 ABG pH 7.41 (7.35-7.45) 05/20/25 23:23 ABG pCO2 36.3 mmHg (35-45) 05/20/25 23:23 ABG pO2 78.5 mmHg (80.0-100.0) L 05/20/25 23:23 ABG PO2/FiO2 Ratio 280 05/20/25 23:23 ABG HCO3 23.1 mmol/L (22-26) 05/20/25 23:23 ABG O2 Saturation 96.1 05/20/25 23:23 ABG Base Excess -1.1 mmol/L (-2.0-2.0) 05/20/25 23:23 Aaron Test Pos 05/20/25 23:23 A-a O2 Gradient 9.8 mmHg (5-10) 05/20/25 23:23 Hematocrit 38.4 % (42-52) L 05/20/25 23:23 Hgb O2 Saturation 94.3 % (95-100) L 05/20/25 23:23 Carboxyhemoglobin 1.4 %THgb (0.4-20.1) 05/20/25 23:23 Methemoglobin 0.4 % (0.4-1.5) 05/20/25 23:23 Total Hemoglobin 12.5 g/dL (14-18) L 05/20/25 23:23 Sodium 135.0 mmol/L (131-143) 05/20/25 23:23 Potassium 3.5 mmol/L (3.5-5.0) 05/20/25 23:23 Glucose 195.0 mg/dL (70-115) H 05/20/25 23:23 Ionized Calcium 1.2 mmol/L (1.1-1.4) 05/20/25 23:23 O2 Delivery Device Nc 05/20/25 23:23 O2 Liters/Min 2.0 % 05/20/25 23:23 FiO2 28.0 % 05/20/25 23:23 General Manager [employer] ID [email or web address] 05/20/25 23:23 Sodium 133 mmol/L (136-145) L 05/20/25 21:55 Potassium 3.8 mmol/L (3.5-5.1) 05/20/25 21:55 Chloride 95 mmol/L (98-107) L 05/20/25 21:55 Carbon Dioxide 22 mmol/L (22-29) 05/20/25 21:55 Anion Gap 19.8 (5-19) H 05/20/25 21:55 BUN 15 mg/dL (8-23) 05/20/25 21:55 Creatinine 0.8 mg/dL (0.7-1.2) 05/20/25 21:55 GFR Calculation Not Reportable 05/20/25 21:55 Glucose 188 mg/dL (65-115) H 05/20/25 21:55 POC Glucose 198 mg/dL (70-110) H 05/20/25 22:20 Calculated Osmolality 282 mOsm/kg (285-295) L 05/20/25 21:55 Lactic Acid 2.4 mmol/L (0.5-2.2) H 05/20/25 21:55 Calcium 9.4 mg/dL (8.5-10.5) 05/20/25 21:55 Phosphorus 2.4 mg/dL (2.5-4.5) L 05/20/25 21:55 Total Bilirubin 1.4 mg/dL (0.15-1.2) H 05/20/25 21:55 AST 12 U/L (0-40) 05/20/25 21:55 ALT 12 U/L (0-41) 05/20/25 21:55 Alkaline Phosphatase 134 U/L (40-130) H 05/20/25 21:55 Troponin T Baseline 28 ng/L (0-15) H 05/20/25 21:55 Troponin T 120 Minute 27.95 ng/L (0-15) H 05/20/25 23:56 Delta Troponin T -0.05 ABS# (0-10) L 05/20/25 23:56 Total Protein 7.7 g/dL (6.6-8.7) 05/20/25 21: Albumin 3.9 g/dL (3.5-5.2) 05/20/25 21: Globulin 3.8 g/dL (1.3-4.6) 05/20/25 21: Procalcitonin 1.75 ng/mL (0-0.5) H 05/20/25 21:55 Urine Color Yellow (Yellow) 05/21/25 00:01 Urine Appearance Clear (CLEAR) 05/21/25 00:01 Urine pH 6.5 (5-7) 05/21/25 00:01 Ur Specific [place] 1.013 (1.005-1.030) 05/21/25 00:01 Urine Protein Trace (Negative) A 05/21/25 00:01 Urine Glucose (UA) 1+ (Normal) H 05/21/25 00:01 Urine Ketones Negative (Negative) 05/21/25 00:01 Urine Blood Negative (Negative) 05/21/25 00:01 Urine Nitrate Negative (Negative) 05/21/25 00:01 Urine Bilirubin Negative (Negative) 05/21/25 00:01 Urine Urobilinogen 1.0 mg/dL (Negative) 05/21/25 00:01 Ur Leukocyte Esterase Negative (Negative) 05/21/25 00:01 Urine RBC 0-2 /hpf (0-2) 05/21/25 00:01 Urine WBC 0-5 /hpf (0-5) 05/21/25 00:01 Ur Squamous Epith Cells 0-5 /hpf (0-5) 05/21/25 00:01 Amorphous Sediment Not Reportable 05/21/25 00:01 Urine Bacteria None seen /hpf (NONE) 05/21/25 00:01 Hyaline Casts 0-4 /lpf H 05/21/25 00:01 Influenza A (PCR) Negative (Negative) 05/20/25 22:25 Influenza Type B (PCR) Negative (Negative) 05/20/25 22:25 RSV (PCR) Negative (Negative) 05/20/25 22:25 SARS-CoV-2 (PCR) Negative (Negative) 05/20/25 22:25 Discharge Plan Discharge Patient Disposition: Admitted As Inpatient Admit Provider: Corrina Espinosa Clinical Impression: Acute metabolic encephalopathy, Elevated bilirubin, Acute lactic acidosis Sepsis Qualifiers: Sepsis type: sepsis due to unspecified organism Sepsis acute organ dysfunction status: with acute organ dysfunction Severe sepsis acute organ dysfunction type: encephalopathy Severe sepsis shock status: with septic shock Qualified Code(s): A41.9 - Sepsis, unspecified organism Pneumonia Qualifiers: Pneumonia type: due to unspecified organism Laterality: left Lung location: lower lobe of lung Qualified Code(s): J18.9 - Pneumonia, unspecified organism Hypotension Qualifiers: Hypotension type: hypotension due to hypovolemia Qualified Code(s): E86.1 - Hypovolemia Condition: Stable Coding Level of Care Code ED Foster Parent for Sanjay Shafer
[2025-05-20] MEDS: cefepime 1,000 mg SDV 2000 MG IVP (22:53)
[2025-05-20] MEDS: doxycycline 100 MG in sodium chloride 0.9% (plus) 100 ML IV (22:53)
[2025-05-20 23:05] LABS: Respiratory Syncytial Virus Ce NEGATIVE (Negative); SARS-CoV-2 PCR NEGATIVE (Negative)
[2025-05-20 23:08] LABS: Alanine Aminotransferase 12 U/L (0-41); Albumin Level 3.9 g/dL (3.5-5.2); Alkaline Phosphatase 134 U/L (40-130); Anion Gap 19.8 (5-19); Aspartate Amino Transferase 12 U/L (0-40); Blood Urea Nitrogen 15 mg/dL (8-23); Calcium 9.4 mg/dL (8.5-10.5); Carbon Dioxide 22 mmol/L (22-29); Chloride 95 mmol/L (98-107); Creatinine Clr Calc Pharmacy 90.3092; Globulin 3.8 g/dL (1.3-4.6); Glucose 188 mg/dL (65-115); Osmolality Calculated 282 mOsm/kg (285-295); Potassium 3.8 mmol/L (3.5-5.1); Sodium 133 mmol/L (136-145); Total Protein 7.7 g/dL (6.6-8.7)
[2025-05-20] MEDS: VANCOMYCIN ADD-Vantage 1,000 MG in 0.9% NaCl ADD-Vantage 250 ML 250 MG IV (23:12)
[2025-05-20 23:15] LABS: Procalcitonin 1.75 ng/mL (0-0.5)
[2025-05-20 23:34] LABS: ABG PCO2 36.3 mmHg (35-45); ABG PH Result 7.41 (7.35-7.45); Alveolar-Arterial Oxygen Gradi 9.8 mmHg (5-10); Arterial Blood Gas Hematocrit 38.4 % (42-52); Blood Gas Allen Test Pos; Blood Gas LPM 2.0 %; Blood Gas Operator Identificat gerca; Blood Gas Sample Site Brachial, right; Blood Gas Sample Type Arterial; Carboxyhemoglobin 1.4 %THgb (0.4-20.1); Glucose Level-ABG 195.0 mg/dL (70-115); HCO3 ABG 23.1 mmol/L (22-26); Ionized Calcium Level - ABG 1.2 mmol/L (1.1-1.4); Methemoglobin 0.4 % (0.4-1.5); Oxygen Saturation ABG 96.1; PO2 ABG 78.5 mmHg (80.0-100.0); PO2 FiO2 Ratio Arterial Blood 280; Potassium Level - ABG 3.5 mmol/L (3.5-5.0); Sodium Level - ABG 135.0 mmol/L (131-143)
--- NOTE | 2025-05-20 23:57 | ECG_ITS ---
[facility] [employer] Test Date: 2025-05-20 Pat Name: Mariaelena Treviño Department: Room: Gender: Male Immigration Case Manager: : 1955 Requested By: Ibeth Francis Order Number: [id number] Sami MD: Janna Morley M.D. Measurements Intervals [place] Rate: 94 P: 77 [place]: 166 QRS: 79 QRSD: 89 T: 76 QT: 376 QTc: 470 Interpretive Statements SINUS RHYTHM WITH OCCASIONAL SUPRAVENTRICULAR PREMATURE COMPLEXES SEPTAL MYOCARDIAL INFARCTION , OF INDETERMINATE AGE [40+ ms Q WAVE IN V1/V2] Compared to ECG 01/08/2025 16:28:43 No significant changes Electronically Signed On 05-23-2025 00:26:38 CDT by Janna Morlye M.D. [email or web address]
[2025-05-21] VITALS (37 sets, daily range): BP systolic 74–162; BP diastolic 44–74; PULSE 76–108; RESP 0–27; TEMP 36.7–38.1; O2SAT 91–100
[2025-05-21 00:19] LABS: Glucose Urine UA 1+ (Normal); Nitrate Urine Negative (Negative); Specific Gravity, Urine 1.013 (1.005-1.030)
[2025-05-21 00:24] LABS: Add Urine Microscopic? YES
[2025-05-21 00:31] LABS: Troponin 5 2HR 27.95 ng/L (0-15)
[2025-05-21 00:34] LABS: Troponin 5 2HR Delta -0.05 ABS# (0-10)
[2025-05-21 01:27] LABS: Lactic Acid level (Lactate) 1.3 mmol/L (0.5-2.2)
--- NOTE | 2025-05-21 02:08 | CTR_ITS ---
PROCEDURE INFORMATION: Exam: CT Head Without Contrast Exam date and time: 05/21/2025 6:12 AM Age: 70 years old Clinical indication: Altered mental status/memory loss; Confusion or disorientation; Confusion with lethargy. History of dementia. ; Additional info: AMS TECHNIQUE: Imaging protocol: Computed tomography of the head without contrast. Radiation optimization: All CT scans at this facility use at least one of these dose optimization techniques: automated exposure control; mA and/or kV adjustment per patient size (includes targeted exams where dose is matched to clinical indication); or iterative reconstruction. COMPARISON: CT angio headneck* [id number] 01/13/2025 11:21 PM RADIATION DOSE METRICS: Total DLP (mGy-cm): 1091.18 FINDINGS: Brain: No hemorrhage. Periventricular white matter lucency represents atherosclerotic encephalopathic changes. Large old infarct in the right MCA distribution. Cerebral ventricles: No ventriculomegaly. Ventricular prominence proportionate to the degree of atrophy observed. Paranasal sinuses: Visualized sinuses are unremarkable. No fluid levels. Mastoid air cells: Visualized mastoid air cells are well aerated. Bones: Unremarkable. No acute fracture. Soft tissues: Unremarkable. Other findings: No mass effect. CT/CT head wo con* [id number] IMPRESSION: 1. No acute intracranial abnormality. 2. Old right MCA infarct.
--- NOTE | 2025-05-21 02:08 | PM.HP ---
Providers/Chief Complaint Admitting Physician: Corrina Espinosa MD Primary Care Provider: JUDITH Kamara Chief Complaint: High Blood Pressure History of Present Illness Mariaelena Treviño is a 70 year old male with a past medical history of diabetes mellitus, peripheral neuropathy, COPD, history of CVA and peripheral artery disease. Patient has previously had an ulcer over left plantar aspect of the foot for which she followed at wound care closely between September 2023 to November 2023. More recently he underwent a left hip replacement in January and was at a rehab where he was noted to have a new ulcer over the lateral malleolus which was noted to be a pressure ulcer has been following with wound care for the same. Found to have an NATALYA of 0.3 on this left leg and has undergone peripheral angiogram performed in April 2025 where he was found to have severe stenosis of the SHOW DOG TRAINER external iliac artery and anterior tibial artery. He underwent balloon angioplasty and was started on DAPT with aspirin and Plavix. He has been brought to the emergency room today with chief complaints of fever and altered mental status for the past 2 to 3 days. Patient was seen twice during course of the night, first in the emergency room and about 1 hour later after being brought to the ICU. When he was first seen in the ER, patient was lethargic, confused, unable to answer most of the questions except to state his name and that he does not feel well. He received 1 L IV fluid bolus in the emergency room and started on empiric antibiotics. When seen 1 hour later in the ICU, he was much more alert and awake. He was sitting up in bed, able to answer all orientation questions, stated that he had started feeling poorly over the last 2 to 2 to 3 days. He describes it as generalized weakness and fever and increased pain over his left lower extremity especially around the site of this nonhealing ulcer. Review of systems was positive for cough over the same timeframe with minimal expectoration. He denied any chest pain or dyspnea. Denied any abdominal pain nausea vomiting or diarrhea. Nominal exam did not show any acute abnormalities. Patient was hypotensive and dehydrated upon arrival for which she received 2 L IV fluid bolus now been started on maintenance IV fluids at 75 cc an hour. Additionally needing Levophed support to maintain a MAP greater than 65. Review of Systems General: Reports: 10 or more systems reviewed and unremarkable except in HPI and below Const: Denies: fever(s), chills or body aches Eyes: Denies: change in vision, blurry vision or photophobia ENMT: Reports: hoarseness; Denies: throat pain, enlarged tonsils, odynophagia or nasal congestion Card: Denies: chest pain, palpitations, irregular heart rhythm, edema, swelling of feet/ankles, lightheadedness, pre-syncope, dyspnea on exertion or orthopnea Resp: Denies: dyspnea, productive cough, non-productive cough, wheezing, stridor, pain on inspiration, change in phlegm color, hemoptysis or chest congestion GI: Denies: abdominal pain, nausea, vomiting, hematemesis, coffee ground emesis, dysphagia, heartburn, diarrhea, constipation, GI cramping, change in stool character, hematochezia or melena : Denies: flank pain, dysuria, urinary frequency, urinary urgency, urinary hesitancy or hematuria Musc: Denies: neck pain, back pain, extremity pain, joint swelling, joint warmth or deformity Neuro: Denies: headache(s), numbness in extremities, weakness in extremities, sensory changes, difficulty walking, frequent falls, dizziness, vertigo, behavioral changes, Slurred speech present or seizure-like activity Psych: Denies: anxiety, depression, suicidal ideation or homicidal ideation Endo: Denies: polyuria, polydipsia, tired all the time, cold intolerance or hot flashes Murphy/Lymph: Denies: easy bruising or easy bleeding Medications/Allergies Home Medications ?Medication ?Instructions ?Recorded ?Confirmed ?Last Taken ?Type hydrocodone 10 mg-acetaminophen 1 tab PO Q8H PRN Pain 03/21/24 05/02/25 06/27/24 History 325 mg tablet blood sugar diagnostic #100 ea 10/24/24 05/02/25 04/08/25 Rx lancets #200 ea 10/24/24 05/02/25 04/08/25 Rx nicotine 14 mg/24 hr daily 1 patch transdermal DAILY #28 ea 12/21/24 05/02/25 01/08/25 Rx transdermal patch ketoconazole 2 % shampoo 1 applic topical .twice a week PRN 01/08/25 05/02/25 Unknown History scalp irritation metformin 1,000 mg tablet 1,000 mg PO BID 01/08/25 05/02/25 04/08/25 History Held on 04/10/25. Instructions: Resume on 04/12/25. mupirocin 2 % topical ointment 1 applic topical TID PRN skin 01/08/25 05/02/25 04/08/25 History irriyation tamsulosin 0.4 mg capsule 0.4 mg PO DAILY 01/08/25 05/02/25 04/08/25 History MetaHoney Gel 1 applic topical BID PRN as 04/06/25 05/02/25 04/08/25 History directed gabapentin 400 mg capsule 400 mg PO BID 04/06/25 05/02/25 04/08/25 History tizanidine 4 mg tablet 4 mg PO BEDTIME PRN Muscle 04/06/25 05/02/25 04/08/25 History Spasticity aspirin 81 mg tablet,delayed 81 mg PO DAILY #90 tabs 04/10/25 05/02/25 Unknown Rx release atorvastatin 20 mg tablet 20 mg PO QPM #90 tabs 05/02/25 05/02/25 Unknown Rx clopidogrel 75 mg tablet 75 mg PO DAILY #90 tabs 05/02/25 05/02/25 Unknown Rx dulaglutide 3 mg/0.5 mL 3 mg (0.5 mL) SUBCUT ONCE 30 days 05/02/25 05/02/25 Unknown Rx subcutaneous pen injector #15 mL ([facility]) memantine 10 mg tablet 10 mg PO DAILY 30 days #30 tabs 05/15/25 Unknown Rx Allergies Allergy/AdvReac Type Severity Reaction Status Date / Time No Known Allergies Allergy Verified 05/20/25 21:45 PFSH Acute PFSH: Medical History Mixed hyperlipidemia Memory loss of unknown cause Anemia Leg wound, left Tobacco dependence Nail deformity 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 Onychomycosis Dandruff Cellulitis of left foot Mild aortic stenosis Enrolled in chronic care management Fatigue Heart murmur Chronic instability of ankle Chronic ankle pain Prostate cancer screening Smoker unmotivated to quit Vitamin D deficiency Essential hypertension Toenail deformity Diabetic foot Encounter for long-term opiate analgesic use Opioid contract exists Long-term use of high-risk medication Chronic low back pain Surgical History S/P knee replacement LEFT KNEE REPLACEMENT 2019 Hx of toe surgery PIN PLACEMENT IN LEFT GREAT TOE Family History Other Cancer Congestive heart failure (CHF) Social History Smoking and tobacco/nicotine status: former use of tobacco/nicotine Alcohol intake: current Alcohol intake frequency: holidays/special occasions only Alcohol type: beer Substance/Drug Use: never Vitals/I&O/Wt Last Vital Signs Temp 102.2 F H 05/20/25 21:42 Pulse 88 05/21/25 01:48 Resp 14 05/21/25 01:48 BP 91/52 05/21/25 01:48 Pulse Ox 96 05/21/25 01:48 O2 Del Method Nasal Cannula 05/20/25 22:02 O2 Flow Rate 2 05/20/25 22:02 05/20/25 05/20/25 05/21/25 14:59 22:59 06:59 Intake Total 2350 / 2350 Balance 2350 / 2350 Weight last 48 hrs Weight 74.843 kg Physical Exam Narrative: General: No acute distress, AO x3, dehydrated HEENT: PERRLA, pupils bilaterally equal and reactive, pallors not present Chest: Normal vesicular breath sounds, no added sounds, equal good air entry bilaterally CVS: S1-S2 regular, no murmurs, no tachycardia, no gallops, no rubs Abdomen: Soft, nontender, no organomegaly, bowel sounds present Neuro: No focal deficits, no facial deformity, AO x3, power 5/5 in all limbs Extremities: Open ulcer with surrounding erythema concerning for cellulitis around the left ankle. Data 05/20/25 21:55 05/20/25 21:55 Micro: Microbiology 05/20/25 22:28 Blood Culture - Preliminary Blood SPECIMEN COLLECTED 05/20/25 21:55 Blood Culture - Preliminary Blood SPECIMEN COLLECTED Other data: Radiology Impressions Ankle X-Ray 05/20/25 21:53 IMPRESSION: Findings suspicious for osteomyelitis involving the distal lateral fibula, deep to a region of skin ulceration. Chest X-Ray 05/20/25 21:53 IMPRESSION: Pneumonia versus aspiration in the left lung base. Laboratory Results WBC 13.54 10^3/uL (3.29-11.43) H 05/20/25 21:55 RBC 4.67 10^6/uL (3.85-5.65) 05/20/25 21:55 Hgb 14.70 g/dL (11.27-16.99) 05/20/25 21:55 Hct 44.1 % (37-53) 05/20/25 21:55 MCV 94.4 fl (82-101) 05/20/25 21:55 MCH 31.5 pg (27-33) 05/20/25 21:55 MCHC 33.3 g/dL (30-55) 05/20/25 21:55 RDW 13.5 % (12.1-15.1) 05/20/25 21:55 Plt Count 166 10^3/cmm (157-399) 05/20/25 21:55 MPV 10.3 fL (7.4-10.4) 05/20/25 21:55 Neut % (Auto) 85.9 % 05/20/25 21:55 Lymph % (Auto) 6.9 % 05/20/25 21:55 Stephenson % (Auto) 5.5 % 05/20/25 21:55 Eos % (Auto) 0.1 % 05/20/25 21: Baso % (Auto) 0.4 % 05/20/25 21:55 Neut # (Auto) 11.64 10^3/uL (1.8-7.7) H 05/20/25 21:55 Lymph # (Auto) 0.9 10^3/uL (0.8-4.8) 05/20/25 21:55 Stephenson # (Auto) 0.7 10^3/uL (0.2-0.9) 05/20/25 21:55 Eos # (Auto) 0.0 10^3/uL (0.0-0.8) 05/20/25 21:55 Baso # (Auto) 0.1 10^3/uL (0.0-0.1) 05/20/25 21:55 Nucleated RBC % (auto) 0 % 05/20/25 21: Nucleated RBCs # 0.0 /100WBC 05/20/25 21:55 Specimen Type Arterial 05/20/25 23:23 Sample Site Brachial, right 05/20/25 23:23 ABG pH 7.41 (7.35-7.45) 05/20/25 23:23 ABG pCO2 36.3 mmHg (35-45) 05/20/25 23:23 ABG pO2 78.5 mmHg (80.0-100.0) L 05/20/25 23:23 ABG PO2/FiO2 Ratio 280 05/20/25 23:23 ABG HCO3 23.1 mmol/L (22-26) 05/20/25 23:23 ABG O2 Saturation 96.1 05/20/25 23:23 ABG Base Excess -1.1 mmol/L (-2.0-2.0) 05/20/25 23:23 Aaron Test Pos 05/20/25 23:23 A-a O2 Gradient 9.8 mmHg (5-10) 05/20/25 23:23 Hematocrit 38.4 % (42-52) L 05/20/25 23:23 Hgb O2 Saturation 94.3 % (95-100) L 05/20/25 23:23 Carboxyhemoglobin 1.4 %THgb (0.4-20.1) 05/20/25 23:23 Methemoglobin 0.4 % (0.4-1.5) 05/20/25 23:23 Total Hemoglobin 12.5 g/dL (14-18) L 05/20/25 23:23 Sodium 135.0 mmol/L (131-143) 05/20/25 23:23 Potassium 3.5 mmol/L (3.5-5.0) 05/20/25 23:23 Glucose 195.0 mg/dL (70-115) H 05/20/25 23:23 Ionized Calcium 1.2 mmol/L (1.1-1.4) 05/20/25 23:23 O2 Delivery Device Nc 05/20/25 23:23 O2 Liters/Min 2.0 % 05/20/25 23:23 FiO2 28.0 % 05/20/25 23:23 Brass Pourer ID gerca 05/20/25 23:23 Sodium 133 mmol/L (136-145) L 05/20/25 21:55 Potassium 3.8 mmol/L (3.5-5.1) 05/20/25 21:55 Chloride 95 mmol/L (98-107) L 05/20/25 21:55 Carbon Dioxide 22 mmol/L (22-29) 05/20/25 21:55 Anion Gap 19.8 (5-19) H 05/20/25 21:55 BUN 15 mg/dL (8-23) 05/20/25 21:55 Creatinine 0.8 mg/dL (0.7-1.2) 05/20/25 21:55 GFR Calculation Not Reportable 05/20/25 21:55 Glucose 188 mg/dL (65-115) H 05/20/25 21:55 POC Glucose 198 mg/dL (70-110) H 05/20/25 22:20 Calculated Osmolality 282 mOsm/kg (285-295) L 05/20/25 21:55 Lactic Acid 2.4 mmol/L (0.5-2.2) H 05/20/25 21:55 Lactic Acid (Sepsis) 1.3 mmol/L (0.5-2.2) 05/21/25 01:07 Calcium 9.4 mg/dL (8.5-10.5) 05/20/25 21:55 Phosphorus 2.4 mg/dL (2.5-4.5) L 05/20/25 21:55 Total Bilirubin 1.4 mg/dL (0.15-1.2) H 05/20/25 21:55 AST 12 U/L (0-40) 05/20/25 21:55 ALT 12 U/L (0-41) 05/20/25 21:55 Alkaline Phosphatase 134 U/L (40-130) H 05/20/25 21:55 Troponin T Baseline 28 ng/L (0-15) H 05/20/25 21:55 Troponin T 120 Minute 27.95 ng/L (0-15) H 05/20/25 23:56 Delta Troponin T -0.05 ABS# (0-10) L 05/20/25 23:56 Troponin T Hi Sens 6Hr 25.22 ng/L (0-15) H 05/21/25 04:14 Troponin T Hi Sens 6Hr Delta -2.78 ng/L (0-12) L 05/21/25 04:14 Total Protein 7.7 g/dL (6.6-8.7) 05/20/25 21:55 Albumin 3.9 g/dL (3.5-5.2) 05/20/25 21:55 Globulin 3.8 g/dL (1.3-4.6) 05/20/25 21:55 Procalcitonin 1.75 ng/mL (0-0.5) H 05/20/25 21:55 TSH 1.12 uIU/mL (0.27-4.20) 05/21/25 04:14 Urine Color Yellow (Yellow) 05/21/25 00:01 Urine Appearance Clear (CLEAR) 05/21/25 00:01 Urine pH 6.5 (5-7) 05/21/25 00:01 Ur Specific [place] 1.013 (1.005-1.030) 05/21/25 00:01 Urine Protein Trace (Negative) A 05/21/25 00:01 Urine Glucose (UA) 1+ (Normal) H 05/21/25 00:01 Urine Ketones Negative (Negative) 05/21/25 00:01 Urine Blood Negative (Negative) 05/21/25 00:01 Urine Nitrate Negative (Negative) 05/21/25 00:01 Urine Bilirubin Negative (Negative) 05/21/25 00:01 Urine Urobilinogen 1.0 mg/dL (Negative) 05/21/25 00:01 Ur Leukocyte Esterase Negative (Negative) 05/21/25 00:01 Urine RBC 0-2 /hpf (0-2) 05/21/25 00:01 Urine WBC 0-5 /hpf (0-5) 05/21/25 00:01 Ur Squamous Epith Cells 0-5 /hpf (0-5) 05/21/25 00:01 Amorphous Sediment Not Reportable 05/21/25 00:01 Urine Bacteria None seen /hpf (NONE) 05/21/25 00:01 Hyaline Casts 0-4 /lpf H 05/21/25 00:01 Influenza A (PCR) Negative (Negative) 05/20/25 22:25 Influenza Type B (PCR) Negative (Negative) 05/20/25 22:25 RSV (PCR) Negative (Negative) 05/20/25 22:25 SARS-CoV-2 (PCR) Negative (Negative) 05/20/25 22:25 A&P Assessment and plan 1. Sepsis: 2. Osteomyelitis of left ankle: 3. Community acquired pneumonia: 4. Type 2 diabetes mellitus: 5. Altered mental status: Plan: 70-year-old male with history as described above, presenting to the hospital with 2 to 3 days of fever, generalized weakness, cough and pain over the left lower extremity. With leukocytosis, fever of 102 Fahrenheit, elevated lactate, elevated procalcitonin, qSOFA score of 3, concern for sepsis. Normal capillary refill at this time. Source of sepsis appears to be pneumonia seen in the left lower lobe on chest x-ray versus osteomyelitis of the left ankle. Blood culture taken in the emergency room Will additionally order for sputum culture, MRSA nasal screen. Patient received empiric antibiotics cefepime vancomycin and doxycycline in the emergency room. Will continue with ceftriaxone 1 g IV every 24 hours, azithromycin 500 mg p.o. daily for community-acquired pneumonia and additionally add vancomycin for the osteomyelitis. Maintenance IV fluids with normal saline at 75 cc an hour, he received septic bolus in the emergency room. Repeat lactate is improving normalized. Initiate Levophed to maintain MAP greater than 65 mmHg. Will consult podiatry for ankle osteomyelitis. On initial arrival patient was noted to be confused and lethargic and LP was considered, however once his fever improved and he was better hydrated, by the time he arrived to the ICU he was alert awake oriented and able to answer all questions. Suspect that his altered mentation upon initial arrival was related to metabolic encephalopathy from sepsis and fever. Lumbar puncture has been deferred given quick improvement in mental status. CT head has been ordered currently pending. Given recent history of peripheral intervention, will continue aspirin and Plavix for now. Low-dose insulin sliding scale for diabetes mellitus DVT prophylaxis: Lovenox 40 mg subcutaneously every 24 hours Full code PDMP PDMP Reviewed: Not Reviewed Attestations Medical Necessity Statement*: Greater than 2 midnight stay is anticipated given sepsis, need for IV antibiotics, pressor support at this time, treatment of pneumonia and osteomyelitis Critical Care Time: The high probability of a clinically significant, sudden or life threatening deterioration of the patient's [respiratory, musculoskeletal, ID, vascular] system(s) required my full and direct attention, intervention and personal management. The critical care time is as shown. This time is in addition to time spent performing any reported procedures but includes the following: [x] Data and vital sign review and interpretation [x] Patient assessment, examination and intervention [x] Documentation [x] Medication orders and management Critical Care Time (min): 50 Coding Level of Care Code Acute Code for Chg Fwd Diagnoses Sepsis A41.9 Osteomyelitis of left ankle M86.9 Community acquired pneumonia J18.9 Type 2 diabetes mellitus E11.9 Altered mental status R41.82
[2025-05-21] MEDS: norepinephrine 4 MG/250 ML BAG 7.5 MG IV (02:18)
[2025-05-21] MEDS: cefTRIAXone 1,000 mg SDV 1000 MG IVP (02:33)
--- NOTE | 2025-05-21 03:55 | ECG_ITS ---
[employer] Test Date: 2025-05-21 Pat Name: Mariaelena Treviño Department: Room: [facility] Gender: Male Insulation Cutter: : 1955 Requested By: Ibeth Francis Order Number: [id number] Sami MD: Janna Morley M.D. Measurements Intervals Badin Rate: 82 P: 78 NV: 168 QRS: 80 QRSD: 92 T: 73 QT: 379 QTc: 444 Interpretive Statements SINUS RHYTHM SEPTAL MYOCARDIAL INFARCTION , OF INDETERMINATE AGE [40+ ms Q WAVE IN V1/V2] Compared to ECG 05/20/2025 23:57:47 No significant changes Electronically Signed On 05-23-2025 00:25:58 CDT by Janna Morley M.D. [email or web address]
[2025-05-21 05:27] LABS: Troponin 5 6HR 25.22 ng/L (0-15)
[2025-05-21 05:30] LABS: Troponin 5 6HR Delta -2.78 ng/L (0-12)
[2025-05-21 05:56] LABS: Thyroid Stimulating Hormone 1.12 uIU/mL (0.27-4.20)
--- OUTSIDE RECORDS SUMMARY | 2025-05-21 06:44 | XMS_ITS | Encounter Summary ---
Author Organization [facility] Address [address] [place] [address] Care Team Providers Care Top Trimmer Name Role Phone Jaylene Mccoy DO Primary Care Provider [phone] Encounter Details Date Type Department Care Team (Latest Contact Info) Description 12/04/1998 Outpatient Historical [facility] Family Medicine [address] [id number] Jefferson Bhakta DO NO ADDRESS ON FILE Other joint derangement, not elsewhere classified, lower leg (Primary Dx) Social History Tobacco Use Types Packs/Day Years Used Date Smoking Tobacco: Never Assessed Sex and Gender Information Value Date Recorded Sex Assigned at Not on file 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
--- OUTSIDE RECORDS SUMMARY | 2025-05-21 06:44 | XMS_ITS | Encounter Summary ---
Author Organization [facility] Address [address] [place] [address] Care Team Providers Care Attache Name Role Phone Jaylene Mccoy DO Primary Care Provider [phone] Encounter Details Date Type Department Care Team (Latest Contact Info) Description 08/01/2002 Outpatient Historical [facility] Family Medicine- [place] [address] [place] [address] Jefferson Bhakta DO NO ADDRESS ON FILE ACUTE BRONCHITIS (Primary Dx); CHEST PAIN NOS Social History Tobacco Use Types Packs/Day Years Used Date Smoking Tobacco: Never Assessed Sex and Gender Information Value Date Recorded Sex Assigned at Not on file 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
--- OUTSIDE RECORDS SUMMARY | 2025-05-21 06:44 | XMS_ITS | Encounter Summary ---
Author Organization [facility] Address [address] [place] [address] Care Team Providers Care Onion Topper Name Role Phone Jaylene Mccoy DO Primary Care Provider [phone] Encounter Details Date Type Department Care Team (Latest Contact Info) Description 08/15/2002 Outpatient Historical [facility] Family Medicine [address] [phone] Jefferson Bhakta DO NO ADDRESS ON FILE ACUTE BRONCHITIS (Primary Dx) Social History Tobacco Use Types Packs/Day Years Used Date Smoking Tobacco: Never Assessed Sex and Gender Information Value Date Recorded Sex Assigned at Not on file 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
--- OUTSIDE RECORDS SUMMARY | 2025-05-21 06:44 | XMS_ITS | Encounter Summary ---
Author Organization [facility] Address [address] [place] [address] Care Team Providers Care Educational Therapy Teacher Name Role Phone Jaylene Mccoy Primary Care Provider [phone] Encounter Details Date Type Department Care Team (Late st Contact Info) Description 02/08/2015 Ancillary Orders [facility] [place] [address] [place] [phone] Jaylene MccoyDO [address] [place], [place] [id number] Pain (Primary Dx) Social History Tobacco Use Types Packs/Day Years Used Date Smoking Tobacco: Every Day Cigarettes Alcohol Use Standard Drinks/Week Comments Yes 0 (1 standard drink = 0.6 oz pur e alcohol) rarely Sex and Gender Information Value Date Recorded Sex Assigned at Not on file 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
--- OUTSIDE RECORDS SUMMARY | 2025-05-21 06:44 | XMS_ITS | Clinical Summary ---
Author Organization [facility] Address [address] [place] [address] Care Team Providers Care Aeronautics Teacher Name Role Phone Jaylene Mccoy Primary Care Provider [phone] Allergies No known active allergies Medications dulaglutide [...] on file Legal Sex Male 1:07 AM MAORI LIAISON ADVISER Gender Identity Not on file Sexual Orientation [...] Screening 07/20/2026 Medical Devices Implanted Type Area Inspector Quality Assurance Device Identifier Shelf Expiration Date Model / Serial / Lot Lens Io Bi-Aspheric Softechd+20.75 - [id number] Implanted:Qty: 1 on 04/23/2021 by John Day MD Eye Right: Eye [employer] 12/02/2022 SOFTECHD+20 .75 / [id number] / Insurance MEDICAID [facility] ADV MEDIPAK ADV HMO [id number] [facility] Care Teams Aeronautics Teacher Relationship Specialty Start Date End Date Jaylene Mccoy DO [address] [facility] [address] [place] [address] PCP - General Family Practice 02/08/15
--- OUTSIDE RECORDS SUMMARY | 2025-05-21 06:44 | XMS_ITS | Encounter Summary ---
Author Organization [facility] Address [address] [place] [address] Care Team Providers Care Station Agent Name Role Phone Jaylene Mccoy DO Primary Care Provider [phone] Encounter Details Date Type Department Care Team (Late st Contact Info) Description 11/24/2007 Outpatient Historical HIS IN BED Sj Ed, Physician NO ADDRESS ON FILE Mka Conti MD [place] [id number] [place] [address] Unspecified Hemiplegia Affecting Unspecified Side (CMS/HCC); Dysphagia, [...] on file Legal Sex Male 6:04 AM HAZARDOUS MATERIAL SPECIALIST Gender Identity Not on file Sexual Orientation Not on file documented as of this encounter Plan of Treatment Not on file documented as of this encounter Procedures Procedure Name Priority Date/Time Associated Diagnosis Comments POC GLUCOSE Routine 11/29/2007 4:50 PM HAZARDOUS MATERIAL SPECIALIST POC GLUCOSE Routine 11/29/2007 11:14 AM HAZARDOUS MATERIAL SPECIALIST POC GLUCOSE Routine 11/29/2007 7:12 AM HAZARDOUS MATERIAL SPECIALIST POC GLUCOSE Routine 11/28/2007 11:08 PM HAZARDOUS MATERIAL SPECIALIST POC GLUCOSE Routine 11/28/2007 5:04 PM HAZARDOUS MATERIAL SPECIALIST POC GLUCOSE Routine 11/28/2007 4:38 PM HAZARDOUS MATERIAL SPECIALIST POC GLUCOSE Routine 11/28/2007 10:48 AM HAZARDOUS MATERIAL SPECIALIST POC GLUCOSE Routine 11/28/2007 6:57 AM HAZARDOUS MATERIAL SPECIALIST POC GLUCOSE Routine 11/28/2007 5:21 AM HAZARDOUS MATERIAL SPECIALIST POC GLUCOSE Routine 11/27/2007 11:48 PM HAZARDOUS MATERIAL SPECIALIST POC GLUCOSE Routine 11/27/2007 5:25 PM HAZARDOUS MATERIAL SPECIALIST POC GLUCOSE Routine 11/27/2007 11:52 AM HAZARDOUS MATERIAL SPECIALIST BASIC METABOLIC PANEL Routine 11/27/2007 6:10 AM HAZARDOUS MATERIAL SPECIALIST POC GLUCOSE Routine 11/27/2007 5:53 AM HAZARDOUS MATERIAL SPECIALIST CARDIAC ENZYMES Routine 11/27/2007 12:32 AM HAZARDOUS MATERIAL SPECIALIST POC GLUCOSE Routine 11/26/2007 11:38 PM HAZARDOUS MATERIAL SPECIALIST CARDIAC ENZYMES Routine 11/26/2007 6:40 PM HAZARDOUS MATERIAL SPECIALIST POC GLUCOSE Routine 11/26/2007 5:04 PM HAZARDOUS MATERIAL SPECIALIST POC GLUCOSE Routine 11/26/2007 3:51 PM HAZARDOUS MATERIAL SPECIALIST CARDIAC ENZYMES Routine 11/26/2007 12:47 PM HAZARDOUS MATERIAL SPECIALIST POC GLUCOSE Routine 11/26/2007 12:19 PM HAZARDOUS MATERIAL SPECIALIST POC GLUCOSE Routine 11/26/2007 8:57 AM HAZARDOUS MATERIAL SPECIALIST POC GLUCOSE Routine 11/26/2007 4:58 AM HAZARDOUS MATERIAL SPECIALIST POC GLUCOSE Routine 11/25/2007 11:20 PM HAZARDOUS MATERIAL SPECIALIST POC GLUCOSE Routine 11/25/2007 7:02 PM HAZARDOUS MATERIAL SPECIALIST POC GLUCOSE Routine 11/25/2007 4:34 PM HAZARDOUS MATERIAL SPECIALIST POC GLUCOSE Routine 11/25/2007 12:02 PM HAZARDOUS MATERIAL SPECIALIST GLUCOSE URINALYSIS, QUALITATIVE Routine 11/25/2007 6:23 AM HAZARDOUS MATERIAL SPECIALIST KETONE, QUALITATIVE, URINE Routine 11/25/2007 6:23 AM HAZARDOUS MATERIAL SPECIALIST URINALYSIS W/REFLEX MICROSCOPIC Routine 11/25/2007 6:23 AM HAZARDOUS MATERIAL SPECIALIST TSH Routine 11/25/2007 6:12 AM HAZARDOUS MATERIAL SPECIALIST HOMOCYSTEINE Routine 11/25/2007 6:12 AM HAZARDOUS MATERIAL SPECIALIST HEMOGLOBIN A1C Routine 11/25/2007 6:12 AM HAZARDOUS MATERIAL SPECIALIST LIPID PANEL Routine 11/25/2007 6:12 AM HAZARDOUS MATERIAL SPECIALIST COMPREHENSIVE METABOLIC PANEL Routine 11/25/2007 6:12 AM HAZARDOUS MATERIAL SPECIALIST POC GLUCOSE Routine 11/25/2007 2:17 AM HAZARDOUS MATERIAL SPECIALIST POC GLUCOSE Routine 11/24/2007 11:14 PM HAZARDOUS MATERIAL SPECIALIST PT AND APTT Routine 11/24/2007 7:35 PM HAZARDOUS MATERIAL SPECIALIST CBC WITH DIFFERENTIAL Routine 11/24/2007 7:35 PM HAZARDOUS MATERIAL SPECIALIST POC ELECTROLYTES/BMP Routine 11/24/2007 7:25 PM HAZARDOUS MATERIAL SPECIALIST POC CREATININE Routine 11/24/2007 7:25 PM HAZARDOUS MATERIAL SPECIALIST documented in this encounter Results * (ABNORMAL) POC GLUCOSE (11/29/2007 4:50 PM HAZARDOUS MATERIAL SPECIALIST) GLUCOSE POC 157(H) 60 - 100 mg/dL INTERFACE SYSTEM 11/29/2007 4:50 PM HAZARDOUS MATERIAL SPECIALIST Result Latasha Brennan MD POINT OF CARE TESTING Edited Performing Organization Address City/[facility] Co de Phone Number INTERFACE SYSTEM Refer to clinic/hospital department * (ABNORMAL) POC GLUCOSE (11/29/2007 11:14 AM HAZARDOUS MATERIAL SPECIALIST) GLUCOSE POC 122(H) 60 - 100 mg/dL INTERFACE SYSTEM 11/29/2007 11:1 4 AM HAZARDOUS MATERIAL SPECIALIST Result Latasha Brennan MD POINT OF CARE TESTING Edited Performing Organization Address City/[facility] Co de Phone Number INTERFACE SYSTEM Refer to clinic/hospital department * (ABNORMAL) POC GLUCOSE (11/29/2007 7:12 AM HAZARDOUS MATERIAL SPECIALIST) GLUCOSE POC 146(H) 60 - 100 mg/dL INTERFACE SYSTEM 11/29/2007 7:12 AM HAZARDOUS MATERIAL SPECIALIST Result Latasha Brennan MD POINT OF CARE TESTING Edited Performing Organization Address [facility] Co de Phone Number INTERFACE SYSTEM Refer to clinic/hospital department * (ABNORMAL) POC GLUCOSE (11/28/2007 11:08 PM HAZARDOUS MATERIAL SPECIALIST) GLUCOSE POC 127(H) 60 - 100 mg/dL INTERFACE SYSTEM 11/28/2007 11:0 8 PM HAZARDOUS MATERIAL SPECIALIST Result Latasha Brennan MD POINT OF CARE TESTING Edited Performing Organization Address [facility] Co de Phone Number INTERFACE SYSTEM Refer to clinic/hospital department * (ABNORMAL) POC GLUCOSE (11/28/2007 5:04 PM HAZARDOUS MATERIAL SPECIALIST) GLUCOSE POC 121(H) 60 - 100 mg/dL INTERFACE SYSTEM 11/28/2007 5:04 PM HAZARDOUS MATERIAL SPECIALIST Result Latasha Brennan MD POINT OF CARE TESTING Edited Performing Organization Address City/[facility] Co de Phone Number INTERFACE SYSTEM Refer to clinic/hospital department * (ABNORMAL) POC GLUCOSE (11/28/2007 4:38 PM HAZARDOUS MATERIAL SPECIALIST) GLUCOSE POC 106(H) 60 - 100 mg/dL INTERFACE SYSTEM 11/28/2007 4:38 PM HAZARDOUS MATERIAL SPECIALIST Result Latasha Brennan MD POINT OF CARE TESTING Edited INTERFACE SYSTEM Refer to clinic/hospital department * (ABNORMAL) POC GLUCOSE (11/28/2007 10:48 AM HAZARDOUS MATERIAL SPECIALIST) GLUCOSE POC 113(H) 60 - 100 mg/dL INTERFACE SYSTEM 11/28/2007 10:4 8 AM HAZARDOUS MATERIAL SPECIALIST Result Latasha Brennan MD POINT OF CARE TESTING Edited Performing Organization Address [facility] Co de Phone Number INTERFACE SYSTEM Refer to clinic/hospital department * (ABNORMAL) POC GLUCOSE (11/28/2007 6:57 AM HAZARDOUS MATERIAL SPECIALIST) GLUCOSE POC 115(H) 60 - 100 mg/dL INTERFACE SYSTEM 11/28/2007 6:57 AM HAZARDOUS MATERIAL SPECIALIST Result Latasha Brennan MD POINT OF CARE TESTING Edited Performing Organization Address [facility] de Phone Number INTERFACE SYSTEM Refer to clinic/hospital department * (ABNORMAL) POC GLUCOSE (11/28/2007 5:21 AM HAZARDOUS MATERIAL SPECIALIST) GLUCOSE POC 106(H) 60 - 100 mg/dL INTERFACE SYSTEM 11/28/2007 5:21 AM HAZARDOUS MATERIAL SPECIALIST Result Latasha Brennan MD POINT OF CARE TESTING Edited Performing Organization Address City/State/[facility] Co de Phone Number INTERFACE SYSTEM Refer to clinic/hospital department * (ABNORMAL) POC GLUCOSE (11/27/2007 11:48 PM HAZARDOUS MATERIAL SPECIALIST) GLUCOSE POC 112(H) 60 - 100 mg/dL INTERFACE SYSTEM 11/27/2007 11:4 8 PM HAZARDOUS MATERIAL SPECIALIST Result Latasha Brennan MD POINT OF CARE TESTING Edited Performing Organization Address [facility] de Phone Number INTERFACE SYSTEM Refer to clinic/hospital department * POC GLUCOSE (11/27/2007 5:25 PM HAZARDOUS MATERIAL SPECIALIST) GLUCOSE POC 97 60 - 100 mg/dL INTERFACE SYSTEM 11/27/2007 5:25 PM HAZARDOUS MATERIAL SPECIALIST Result Latasha Brennan MD POINT OF CARE TESTING Edited Performing Organization Address [facility] de Phone Number INTERFACE SYSTEM Refer to clinic/hospital department * POC GLUCOSE (11/27/2007 11:52 AM HAZARDOUS MATERIAL SPECIALIST) GLUCOSE POC 98 60 - 100 mg/dL INTERFACE SYSTEM 11/27/2007 11:5 2 AM HAZARDOUS MATERIAL SPECIALIST Result Latasha Brennan MD POINT OF CARE TESTING Edited Performing Organization Address [facility] Phone Number INTERFACE SYSTEM Refer to clinic/hospital department * (ABNORMAL) BASIC METABOLIC PANEL (11/27/2007 6:10 AM HAZARDOUS MATERIAL SPECIALIST) GLUCOSE 93 70 - 110 mg/dL INTERFACE [...] 295 mOsm/Kg INTERFACE SYSTEM 11/27/2007 6:10 AM HAZARDOUS MATERIAL SPECIALIST Result Latasha Brennan MD CHEMISTRY ORDERABLES Edited Performing Organization Address [facility] de Phone Number INTERFACE SYSTEM Refer to clinic/hospital department * POC GLUCOSE (11/27/2007 5:53 AM HAZARDOUS MATERIAL SPECIALIST) GLUCOSE POC 98 60 - 100 mg/dL INTERFACE SYSTEM 11/27/2007 5:53 AM HAZARDOUS MATERIAL SPECIALIST Result Latasha Brennan MD POINT OF CARE TESTING Edited Performing Organization Address [facility] Phone Number INTERFACE SYSTEM Refer to clinic/hospital department * CARDIAC ENZYMES (11/27/2007 12:32 AM HAZARDOUS MATERIAL SPECIALIST) TROPONIN I <0.1 0.0 - 1.3 ng/mL INTERFACE SYSTEM Comment: As of 07 the Troponin Reference Range has changed from 0.0-1.5 ng/ml to 0.0- 1.3 ng/ml due to a change in testing methodology. CKMB 0.3 0.0 - 5.0 ng/mL INTERFACE SYSTEM 11/27/2007 12:3 2 AM HAZARDOUS MATERIAL SPECIALIST Result Latasha Brennan MD CHEMISTRY ORDERABLES Edited Performing Organization Address [facility] Phone Number INTERFACE SYSTEM Refer to clinic/hospital department * POC GLUCOSE (11/26/2007 11:38 PM HAZARDOUS MATERIAL SPECIALIST) GLUCOSE POC 98 60 - 100 mg/dL INTERFACE SYSTEM 11/26/2007 11:3 8 PM HAZARDOUS MATERIAL SPECIALIST Result Latasha Brennan MD POINT OF CARE TESTING Edited Performing Organization Address [facility] Phone Number INTERFACE SYSTEM Refer to clinic/hospital department * CARDIAC ENZYMES (11/26/2007 6:40 PM HAZARDOUS MATERIAL SPECIALIST) TROPONIN I <0.1 0.0 - 1.3 ng/mL INTERFACE SYSTEM Comment: As of 07 the Troponin Reference Range has changed from 0.0-1.5 ng/ml to 0.0- 1.3 ng/ml due to a change in testing methodology. CKMB 0.2 0.0 - 5.0 ng/mL INTERFACE SYSTEM 11/26/2007 6:40 PM HAZARDOUS MATERIAL SPECIALIST Result Latasha Brennan MD CHEMISTRY ORDERABLES Edited Performing Organization Address [facility]/ZIP Co de Phone Number INTERFACE SYSTEM Refer to clinic/hospital department * (ABNORMAL) POC GLUCOSE (11/26/2007 5:04 PM HAZARDOUS MATERIAL SPECIALIST) GLUCOSE POC 109(H) 60 - 100 mg/dL INTERFACE SYSTEM 11/26/2007 5:04 PM HAZARDOUS MATERIAL SPECIALIST Result Latasha Brennan MD POINT OF CARE TESTING Edited Performing Organization Address [facility] Phone Number INTERFACE SYSTEM Refer to clinic/hospital department * (ABNORMAL) POC GLUCOSE (11/26/2007 3:51 PM HAZARDOUS MATERIAL SPECIALIST) GLUCOSE POC 121(H) 60 - 100 mg/dL INTERFACE SYSTEM 11/26/2007 3:51 PM HAZARDOUS MATERIAL SPECIALIST Result Latasha Brennan MD POINT OF CARE TESTING Edited Performing Organization Address [facility] Phone Number INTERFACE SYSTEM Refer to clinic/hospital department * CARDIAC ENZYMES (11/26/2007 12:47 PM HAZARDOUS MATERIAL SPECIALIST) TROPONIN I <0.1 0.0 - 1.3 ng/mL INTERFACE SYSTEM Comment: As of 07 the Troponin Reference Range has changed from 0.0-1.5 ng/ml to 0.0- 1.3 ng/ml due to a change in testing methodology. CKMB 0.3 0.0 - 5.0 ng/mL INTERFACE SYSTEM 11/26/2007 12:4 7 PM HAZARDOUS MATERIAL SPECIALIST Result Latasha Brennan MD CHEMISTRY ORDERABLES Edited Performing Organization Address [facility] de Phone Number INTERFACE SYSTEM Refer to clinic/hospital department * (ABNORMAL) POC GLUCOSE (11/26/2007 12:19 PM HAZARDOUS MATERIAL SPECIALIST) GLUCOSE POC 112(H) 60 - 100 mg/dL INTERFACE SYSTEM 11/26/2007 12:1 9 PM HAZARDOUS MATERIAL SPECIALIST Result Latasha Brennan MD POINT OF CARE TESTING Edited Performing Organization Address [facility] de Phone Number INTERFACE SYSTEM Refer to clinic/hospital department * (ABNORMAL) POC GLUCOSE (11/26/2007 8:57 AM HAZARDOUS MATERIAL SPECIALIST) GLUCOSE POC 125(H) 60 - 100 mg/dL INTERFACE SYSTEM 11/26/2007 8:57 AM HAZARDOUS MATERIAL SPECIALIST Result Latasha Brennan MD POINT OF CARE TESTING Edited Performing Organization Address [facility] de Phone Number INTERFACE SYSTEM Refer to clinic/hospital department * (ABNORMAL) POC GLUCOSE (11/26/2007 4:58 AM HAZARDOUS MATERIAL SPECIALIST) GLUCOSE POC 132(H) 60 - 100 mg/dL INTERFACE SYSTEM 11/26/2007 4:58 AM HAZARDOUS MATERIAL SPECIALIST Result Latasha Brennan MD POINT OF CARE TESTING Edited Performing Organization Address [facility] Phone Number INTERFACE SYSTEM Refer to clinic/hospital department * (ABNORMAL) POC GLUCOSE (11/25/2007 11:20 PM HAZARDOUS MATERIAL SPECIALIST) GLUCOSE POC 150(H) 60 - 100 mg/dL INTERFACE SYSTEM 11/25/2007 11:2 0 PM HAZARDOUS MATERIAL SPECIALIST Result Latasha Brennan MD POINT OF CARE TESTING Edited Performing Organization Address [facility] Phone Number INTERFACE SYSTEM Refer to clinic/hospital department * (ABNORMAL) POC GLUCOSE (11/25/2007 7:02 PM HAZARDOUS MATERIAL SPECIALIST) GLUCOSE POC 136(H) 60 - 100 mg/dL INTERFACE SYSTEM 11/25/2007 7:02 PM HAZARDOUS MATERIAL SPECIALIST Result Latasha Brennan MD POINT OF CARE TESTING Edited Performing Organization Address [facility] de Phone Number INTERFACE SYSTEM Refer to clinic/hospital department * (ABNORMAL) POC GLUCOSE (11/25/2007 4:34 PM HAZARDOUS MATERIAL SPECIALIST) GLUCOSE POC 144(H) 60 - 100 mg/dL INTERFACE SYSTEM 11/25/2007 4:34 PM HAZARDOUS MATERIAL SPECIALIST Result Latasha Brennan MD POINT OF CARE TESTING Edited Performing Organization Address [facility] Phone Number INTERFACE SYSTEM Refer to clinic/hospital department * (ABNORMAL) POC GLUCOSE (11/25/2007 12:02 PM HAZARDOUS MATERIAL SPECIALIST) GLUCOSE POC 145(H) 60 - 100 mg/dL INTERFACE SYSTEM 11/25/2007 12:0 2 PM HAZARDOUS MATERIAL SPECIALIST Result Latasha Brennan MD POINT OF CARE TESTING Edited Performing Organization Address [facility] Phone Number INTERFACE SYSTEM Refer to clinic/hospital department * (ABNORMAL) ACETONE QUALITATIVE, URINE (11/25/2007 6:23 AM HAZARDOUS MATERIAL SPECIALIST) KETONES UA Small(A) Negative INTERFACE SYSTEM 11/25/2007 6:23 AM HAZARDOUS MATERIAL SPECIALIST Result Latasha Brennan MD URINE ORDERABLES Edited Performing Organization Address [facility] Phone Number INTERFACE SYSTEM Refer to clinic/hospital department * (ABNORMAL) GLUCOSE URINALYSIS, QUALITATIVE (11/25/2007 6:23 AM HAZARDOUS MATERIAL SPECIALIST) GLUCOSE, URINE 1000(A) Negative INTER FACE SYSTEM 11/25/2007 6:23 AM HAZARDOUS MATERIAL SPECIALIST Result Latasha Brennan MD URINE ORDERABLES Edited Performing Organization Address [facility] de Phone Number INTERFACE SYSTEM Refer to clinic/hospital department * URINALYSIS (11/25/2007 6:23 AM HAZARDOUS MATERIAL SPECIALIST) COLOR UA Yellow Straw INTERFACE SYSTEM CLARITY [...] No No INTERFACE SYSTEM 11/25/2007 6:23 AM HAZARDOUS MATERIAL SPECIALIST us Ermias Brennan MD URINE ORDERABLES Edited Performing Organization Address [facility] Phone Number INTERFACE SYSTEM Refer to clinic/hospital department * (ABNORMAL) HEMOGLOBIN A1C (11/25/2007 6:12 AM HAZARDOUS MATERIAL SPECIALIST) HEMOGLOBIN A1C 10.8(H) 4.0 - 6.0 %A1C INTERFACE SYSTEM 11/25/2007 6:12 AM HAZARDOUS MATERIAL SPECIALIST us Ermias Brennan MD CHEMISTRY ORDERABLES Edited Performing Organization Address [facility] Phone Number INTERFACE SYSTEM Refer to clinic/hospital department * TSH (11/25/2007 6:12 AM HAZARDOUS MATERIAL SPECIALIST) TSH 0.470 0.350 - 5.500 uIU/ml INTERFACE SYSTEM 11/25/2007 6:12 AM HAZARDOUS MATERIAL SPECIALIST Result Latasha Brennan MD CHEMISTRY ORDERABLES Edited Performing Organization Address [facility] Phone Number INTERFACE SYSTEM Refer to clinic/hospital department * HOMOCYSTEINE, SERUM (11/25/2007 6:12 AM HAZARDOUS MATERIAL SPECIALIST) HOMOCYSTEINE, SERUM 7.5 5.0 - 12.5 umol/L INTERFACE SYSTEM 11/25/2007 6:12 AM HAZARDOUS MATERIAL SPECIALIST us Ermias Brennan MD CHEMISTRY ORDERABLES Edited Performing Organization Address [facility] Phone Number INTERFACE SYSTEM Refer to clinic/hospital department * (ABNORMAL) LIPID PANEL (11/25/2007 6:12 AM HAZARDOUS MATERIAL SPECIALIST) CHOLESTEROL 200 75 - 200 mg/dL INTERFACE SYSTEM HDL 35(L) 40 - 60 mg/dL INTERFACE SYSTEM TRIGLYCERIDE 81 0 - 200 mg/dL INTERFACE SYSTEM CALCULATED LDL CHOLESTEROL 149(H) 0 - 130 mg/dL INTERFACE SYSTEM CALCULATED TOTAL CHOLESTEROL TO HDL RATIO 5.71(H) 3.43 - 4.97 INTERFACE SYSTEM 11/25/2007 6:12 AM HAZARDOUS MATERIAL SPECIALIST us Ermias Brennan MD CHEMISTRY ORDERABLES Edited Performing Organization Address [facility] de Phone Number INTERFACE SYSTEM Refer to clinic/hospital department * (ABNORMAL) COMPREHENSIVE METABOLIC PANEL (11/25/2007 6:12 AM HAZARDOUS MATERIAL SPECIALIST) GLUCOSE 198(H) 70 - 110 mg/dL INTERFACE [...] 295 mOsm/Kg INTERFACE SYSTEM 11/25/2007 6:12 AM HAZARDOUS MATERIAL SPECIALIST us Ermias Brennan MD CHEMISTRY ORDERABLES Edited Performing Organization Address [facility] Phone Number INTERFACE SYSTEM Refer to clinic/hospital department * (ABNORMAL) POC GLUCOSE (11/25/2007 2:17 AM HAZARDOUS MATERIAL SPECIALIST) GLUCOSE POC 200(H) 60 - 100 mg/dL INTERFACE SYSTEM 11/25/2007 2:17 AM HAZARDOUS MATERIAL SPECIALIST us Ermias Brennan MD POINT OF CARE TESTING Edited Performing Organization Address [facility]/ZIP Co de Phone Number INTERFACE SYSTEM Refer to clinic/hospital department * (ABNORMAL) POC GLUCOSE (11/24/2007 11:14 PM HAZARDOUS MATERIAL SPECIALIST) GLUCOSE POC 185(H) 60 - 100 mg/dL INTERFACE SYSTEM 11/24/2007 11:1 4 PM HAZARDOUS MATERIAL SPECIALIST us Ermias Brennan MD POINT OF CARE TESTING Edited Performing Organization Address [facility] Phone Number INTERFACE SYSTEM Refer to clinic/hospital department * PT AND APTT (11/24/2007 7:35 PM HAZARDOUS MATERIAL SPECIALIST) PROTIME 13.0 12.8 - 15.8 Secs INTERFACE SYSTEM Comment: As of 2007 note change in normal range. INR 0.9 INTERFACE SYSTEM Comment: Expected Values for INR: DVT/PE Goal INR 2.5; range 2.0 - 3.0 Valve Replacement Tissue Goal INR 2.5; range 2.0 - 3.0 Mechanical Goal INR 3.0; range 2.5 - 3.5 POST-KS Goal INR 2.5; range 2.0 - 3.0 [...] in APTT Normal Range. 11/24/2007 7:35 PM HAZARDOUS MATERIAL SPECIALIST us Mak Conti MD HEMATOLOGY ORDERABLES Edit ed Performing Organization Address [facility] de Phone Number INTERFACE SYSTEM Refer to clinic/hospital department * (ABNORMAL) CBC WITH DIFFERENTIAL (11/24/2007 7:35 PM HAZARDOUS MATERIAL SPECIALIST) WBC 5.8 4.8 - 10.8 K/ul INTERFACE [...] 0.2 K/ul INTERFACE SYSTEM 11/24/2007 7:35 PM HAZARDOUS MATERIAL SPECIALIST us Mak Conti MD HEMATOLOGY ORDERABLES Edit ed INTERFACE SYSTEM Refer to clinic/hospital department * (ABNORMAL) POC ISTAT 6 (11/24/2007 7:25 PM HAZARDOUS MATERIAL SPECIALIST) SODIUM POC 138 136 - 145 mEq/L [...] 18.0 g/dL INTERFACE SYSTEM 11/24/2007 7:25 PM HAZARDOUS MATERIAL SPECIALIST us Ermias Brennan MD POINT OF CARE TESTING Edited Performing Organization Address City/[facility] Co de Phone Number INTERFACE SYSTEM Refer to clinic/hospital department * POC CREATININE (11/24/2007 7:25 PM HAZARDOUS MATERIAL SPECIALIST) CREATININE POC 0.8 0.7 - 1.5 mg/dL INTERFACE SYSTEM 11/24/2007 7:25 PM HAZARDOUS MATERIAL SPECIALIST us Ermias Brennan MD POINT OF CARE TESTING Edited Performing Organization Address [facility] Co de Phone Number INTERFACE SYSTEM [...] unspecified documented in this encounter Care Teams Station Agent Relationship Specialty Start Date End Date Jaylene Mccoy DO PCP - General Family Practice 02/08/15 documented as of this encounter
--- OUTSIDE RECORDS SUMMARY | 2025-05-21 06:45 | XMS_ITS | Encounter Summary ---
Author Organization [facility] Address [address] [place] [address] Care Team Providers Care Chaser Helper Name Role Phone Jaylene Mccoy DO Primary Care Provider [phone] Encounter Details Date Type Department Care Team (Late st Contact Info) Description 11/30/2007 Outpatient Historical [facility] [address] [place] [address] AMBULANCE, [facility] Social History Tobacco Use Types Packs/Day Years Used Date Smoking Tobacco: Never Assessed Sex and Gender Information Value Date Recorded Sex Assigned at Not on file Legal Sex Male 6:04 AM MANAGING PRINCIPAL Gender Identity Not on file Sexual Orientation Not on file documented as of this encounter Plan of Treatment Not on file documented as of this encounter Visit Diagnoses Not on filedocumented in this encounter Care Teams Chaser Helper Relationship Specialty Start Date End Date Jaylene Mccoy DO PCP - General Family Practice 02/08/15 documented as of this encounter
--- OUTSIDE RECORDS SUMMARY | 2025-05-21 06:45 | XMS_ITS | Patient Health Record ---
Author Organization [facility] Address [address] [place], [place] [id number] Care Team Providers Care Housekeeping/Laundry Supervisor Name Role Phone Aishwarya Gonzalez Primary Care Provider Unavailab luana Burks MD, Tyrone Unavailable [phone] Gross RETAIL EVENT AND SALES ASSISTANT, DJ Unavailable Unavailable Basil CERRATOPCheri Unavailable [phone] Allergies No Known Allergies Results Component Value Reference Range Notes Embedded PDF Reviewed date:11/27/2024 07:42:39 AM Interpretation: Performing Lab: Notes/Report: [facility], [address], [place] [address], , L ab Director: Lucia Cardoso MD, CLIA ID# [id number] Picatic Results Reviewed date:11/27/2024 07:42:31 AM Interpretation: Performing Lab:[id number] [facility], [address] [facility] [address] Lucia Cardoso MD Notes/Report: [facility], [address], [place] [address], , L ab Director: Lucia Cardoso MD, CLIA ID# [id number] OPIATES SCREEN positive 40 ng/mL Codeine negative [...] 5 ng/mL Tramadol Quantification negative 5 ng/mL N-Xoekmxtfi-Ntrisztn Quantification negative 5 ng/ mL BENZODIAZEPINES SCREEN [...] negative 10 ng/mL Phencyclidine negative 1 ng/mL Saliva Swab Toxicology Scree n Reviewed date:01/04/2025 07:41:24 AM Interpretation:See notes Performing Lab: Notes/Report: See notes Saliva Swab Toxicology Scree n Reviewed date:01/04/2025 07:41:24 AM Interpretation:See notes Performing Lab: Notes/Report: See notes Reason For Referral No Information Medications Medication [...] W/U Status Risk Notes Problem Solitary sacroiliitis (915759541) Sacroiliitis, not elsewhere classified (M46.1) Active confirmed Problem Lumbosacral spondylosis without myelopathy (72594001) Spondylosis without myelopathy or radiculopathy, lumbar region (M47.816) Active confirmed Problem High risk drug monitoring status (590979525) shelter (current) use of opiate analgesic (Z79.891) Active confirmed Problem Hypersomnia (98912927) Hypersomnia, unspecified (G47.10) Active confirmed Problem Chronic pain (55776616) Other chronic pain (G89.29) Active confirmed Problem Acquired spondylolisthesis (381585452) Spondylolisthesis , lumbar region (M43.16) Active confirmed Problem 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 disc disorder (935712066971509) Intervertebral disc disorders with radiculopathy, lumbar region (M51.16) Active confirmed Problem Long-term current use of drug therapy (042305580) 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 (Z79.899) Active confirmed Problem Neurogenic claudication (985066084) Spinal stenosis, lumbar region with neurogenic claudication (M48.062) Active confirmed Problem Low back pain (662936466) Low back pain, unspecified (M54.50) Active confirmed Problem Pain in lumbar spine (705106267) Vertebrogenic low back pain (M54.51) Active confirmed Vital Signs Temperature 98.0 degrees Fahrenheit 11/22/2024 Oximetry 96 % 11/22/2024 Blood pressure diastolic 81 mm Hg 11/22/2024 Height 72 in 11/22/2024 Blood pressure systolic 132 mm Hg 11/22/2024 Weight 163 lbs 11/22/2024 BMI 22.1 kg/m2 11/22/2024 Encounters Encounter Location Date [facility] [address] [place], [place] [id number] 07/18/2024 Cheri Gracia Vertebrogenic low ba ck pain M54.51 ; Other chronic pain G89.29 ; Spinal stenosis, lumbar region with neurogenic claudication M48.062 and Hypersomnia, unspecified G47.10 [facility] [employer] [employer] [place] [address] [place], [place] [id number] 09/12/2024 Tyrone Burks Vertebrogenic low ba ck pain M54.51 ; Other chronic pain G89.29 ; Spinal stenosis, lumbar region with neurogenic claudication M48.062 and Hypersomnia, unspecified G47.10 [facility] [address] [place], [place] [id number] 11/22/2024 Tyrone Burks Vertebrogenic low ba ck pain M54.51 ; Other chronic pain G89.29 ; Spinal stenosis, lumbar region with neurogenic claudication M48.062 ; Hypersomnia, unspecified G47.10 and termite control representative (current) use of opiate analgesic Z79.891 Assessments [...] relation to sleep for safety concerns. 11/22/2024 shelter (current) use of opiate analgesic (ICD-10 - [...] End Date [employer] [address] [place] [address] [id number] Mariaelena Treviño Self - patient is the insured [place] [address] [place] [id number] Mariaelena Treviño Self - patient is the [...] great toe Knee replacement, left, performed at [facility] by Dr. Padron, 2018 Angioplasty with placement o f stent, left leg, performed at [facility] by Dr. Contreras, 06/2024 Hospitalization History Reason Date(Month/Year) Stroke, treated at [facility] in [place], [place], 2007
--- OUTSIDE RECORDS SUMMARY | 2025-05-21 06:45 | XMS_ITS | Encounter Summary ---
Author Organization [facility] Address [address] [place] [address] Care Team Providers Care Dial Printer Name Role Phone Jaylene Mccoy DO Primary Care Provider [phone] Encounter Details Date Type Department Care Team (Late st Contact Info) Description 12/30/2007 Outpatient Historical [facility] [place] [address] [facility] [address] [place] [address] Jefferson Bhakta DO NO ADDRESS ON FILE Social History Tobacco Use Types Packs/Day Years Used Date Smoking Tobacco: Never Assessed Sex and Gender Information Value Date Recorded Sex Assigned at Not on file 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 SOCIAL HISTORY: . Worked in the [employer] prior to illness. OBJECTIVE: GENERAL: The patient [...] or two months. Jefferson Bhakta D.O. [facility] Electronically Signed by Jefferson Bhakta D.O. 01/02/2008 13:49 , P, tammi , Document #: [id number] cc: HOST documented in this encounter Plan of Treatment Not on file documented as of this encounter Visit Diagnoses Not on filedocumented in this encounter Care Teams Dial Printer Relationship Specialty Start Date End Date Jaylene Mccoy DO PCP - General Family Practice 02/08/15 documented as of this encounter
--- OUTSIDE RECORDS SUMMARY | 2025-05-21 06:45 | XMS_ITS | Encounter Summary ---
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 Gender Identity Not on file Sexual Orientation Not on file documented as of this encounter Plan of Treatment Not on file documented as of this encounter Procedures Procedure Name Priority Date/Time Associated Diagnosis Comments PATHOLOGY Routine 06/11/2008 8:38 AM CDT documented in this encounter Results * PATHOLOGY (06/11/2008 8:38 AM CDT) PATHOLOGY/CYT OLOGY REPORT [facility] Anatomic Pathology Dept [address] [place], [place] [address] [address] Patient: MARIAELENA TREVIÑO Accn No: [id number] Collected: 06/11/2008 8:38:00 AM SURGICAL PATHOLOGY FINAL [...] on filedocumented in this encounter Care Teams Developer Support Engineer Relationship Specialty Start Date End Date Jaylene Mccoy DO PCP - General Family Practice 02/08/15 documented as of this encounter
--- OUTSIDE RECORDS SUMMARY | 2025-05-21 06:45 | XMS_ITS | Clinical Summary ---
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 Gender Identity Not on file Sexual Orientation [...] Screening 07/20/2026 Medical Devices Implanted Type Area Diagnostic Cardiac Sonographer Device Identifier Shelf Expiration Date Model / Serial / Lot Lens Io Bi-Aspheric Softechd+20.75 - [id number] Implanted:Qty: 1 on 04/23/2021 by John Day MD at [facility] Eye Right: Eye [employer] 12/02/2022 SOFTECHD+20 .75 / [id number] / Procedures Procedure Name Priority Date/Time Associated Diagnosis Comments LDL CHOLESTEROL, DIRECT Routine 06/10/2012 9:41 AM CDT Hyperlipidemia HEMOGLOBIN A1C Routine 06/10/2012 9:41 AM CDT DM w/o complication type I (CMS/HCC) MICROALBUMIN/CREATI NINE RATIO, RANDOM UR Routine 12/23/2009 9:32 AM CRIB PAD MAKER Chronic Airway Obstruction, not Elsewhere Classified (CMS/HCC) from Last 3 Months or Most Recently Relevant to Health Maintenance Results * LDL CHOLESTEROL, DIRECT (06/10/2012 9:41 AM CDT) LDL CHOLESTEROL, DIRECT 100 58 - 100 MG/DL [facility] Comment: DIRECT LDL REFERENCE: < 100 Optimal 100 - 129 Near Optimal 130 - 159 Borderline High > 160 High Risk Blood specimen (specimen) 06/10/2012 9:41 AM CDT 06/10/2012 9:42 AM CDT us Jefferson Bhakta DO CHEMISTRY ORDERABLES Final Resu lt [facility] CLIA# [id number] [address] [place] [address] * HEMOGLOBIN A1C (06/10/2012 9:41 AM CDT) HEMOGLOBIN A1C 6.0 4.0 - 6.0 % [facility] Comment: This test was performed on a [employer] II instrument using HPLC methodology. Blood specimen (specimen) 06/10/2012 9:41 AM CDT 06/10/2012 9:42 AM CDT Jefferson Bhakta DO CHEMISTRY ORDERABLES Final Resu lt Performing Organization Address City/[facility] de Phone Number [facility] CLIA# [id number] [address] [place] [address] * MICROALBUMIN/CREATININE RATIO, RANDOM UR (12/23/2009 9:32 AM CRIB PAD MAKER) MICROALBUMIN URINE 2.0 MG/DL [facility] Creatinine, Urine 66 MG/DL [facility] MICROALBUMIN/CREA T RATIO, UR 30.3 MCG/MG CREAT. [facility] Comment: NORMAL: <30 MCG/MG CREAT MICROALBUMINURIA: 30-300 MCG/MG CREAT CLINICAL ALBUMINURIA: >300 MCG/MG CREAT Blood specimen (specimen) 12/23/2009 9:32 AM CRIB PAD MAKER 12/23/2009 9:33 AM CRIB PAD MAKER Jefferson Bhakta DO URINE ORDERABLES Final Result Performing Organization Address [facility] de Phone Number INTERFACE SYSTEM Refer to clinic/hospital department [facility] CLIA# [id number] [address] [place] [address] from Last 3 Months or Most Recently Relevant to Health Maintenance Insurance MEDICAID [facility] Care Teams X Ray Control Equipment Repairer Relationship Specialty Start Date End Date Jaylene Mccoy DO PCP - General Family Practice 02/08/15
--- OUTSIDE RECORDS SUMMARY | 2025-05-21 06:45 | XMS_ITS | Encounter Summary ---
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 CLL COMMENTS Specimen: Lymph node ([id number]) Analysis: A lymphocyte screen was performed, and showed scant lymphocytes. These showed no aberrant CD5/CD19 coexpression, and no evidence of clonal kappa or lambda light chain expression. Interpretation : Negative lymphocyte screening study. No clonal B cell population identified. Scant lymphocytes present. Interpreted by: Kimi Damon. [facility] Comment: This test was developed and its performance characteristics determined by [facility] Flow Cytometry Laboratory. It has not been [...] LYMPH NODE / Unknown 10/23/2008 10:00 AM OTR TRUCK DRIVER 10/23/2008 11:15 AM OTR TRUCK DRIVER Ludwig Gerardo Jania DO PATHOLOGY/CYTOLOGY ORDERABLES Final Result INTERFACE SYSTEM Refer to clinic/hospital department [facility] CLIA# [id number] [address] [place] [address] * PATHOLOGY (10/22/2008 9:12 AM OTR TRUCK DRIVER) PATHOLOGY/CYT OLOGY REPORT [facility] Anatomic Pathology Dept [address] [place] [address] Patient: MARIAELENA TREVIÑO Accn No: [id number] Collected: 10/22/2008 9:12:00 AM SURGICAL PATHOLOGY FINAL [...] A1-A2. DLS/TKB INTERFACE SYSTEM 10/22/2008 9:12 AM OTR TRUCK DRIVER us Ludwig Dykes DO PATHOLOGY/CYTOLOGY ORDERABLES Final Result INTERFACE SYSTEM Refer to clinic/hospital department documented in this encounter Visit Diagnoses Not on filedocumented in this encounter Care Teams Firer Marine Relationship Specialty Start Date End Date Jaylene Mccoy DO PCP - General Family Practice 02/08/15 documented as of this encounter
--- OUTSIDE RECORDS SUMMARY | 2025-05-21 06:45 | XMS_ITS | Encounter Summary ---
Author Organization [facility] Address [address] [place] [address] Care Team Providers Care Pilot Supervisor Name Role Phone Jaylene Mccoy DO Primary Care Provider [phone] Encounter Details Date Type Department Care Team (Late st Contact Info) Description 06/07/2015 Ancillary Orders [facility] Admitting [address] [place] [id number] Yo Hunt, DPMar [address] [place] [address] Hammer toe (Primary Dx) Social History Tobacco Use Types Packs/Day Years Used Date Smoking Tobacco: Every Day Cigarettes Alcohol Use Standard Drinks/Week Comments Yes 0 (1 standard drink = 0.6 oz pur e alcohol) rarely Sex and Gender Information Value Date Recorded Sex Assigned at Not on file 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
--- OUTSIDE RECORDS SUMMARY | 2025-05-21 06:45 | XMS_ITS | Encounter Summary ---
Author Organization [facility] Address [address] [place] [address] Care Team Providers Care Manager Construction Name Role Phone Jaylene Mccoy DO Primary Care Provider [phone] Encounter Details Date Type Department Care Team (Late st Contact Info) Description 11/29/2007 Inpatient Historical HIS IN BED Jh Poe MD [address] [place] [address] Acute, but Ill-Defined, Cerebrovascular Disease; Hemiplegia Affecting Side NOS (CMS/[facility]); Dysphasia, Late Effect of Cerebrovascular Disease; Neurological Neglect Syndrome; Candidiasis of Other Urogenital Sites; Chronic Airway Obstruction, not Elsewhere Classified (CMS/HCC); Dysphagia, Late Effect of Cerebrovascular Disease; Other Late Effects of Cerebrovascular Disease; Dysphagia, Oropharyngeal Phase; Other and Unspecified Angina Pectoris; Other and Unspecified Hyperlipidemia; Tobacco Use Disorder; Unspecified Essential Hypertension; Encounter for Long-Term (Current) Use of Insulin (CMS/[facility]); DM w/o Complication Type II ([facility]); Profound Impairment, One Eye, Impairment Level not Further Specified; Hypoxemia; Other Seborrheic Dermatitis; Abrasion Hip/Leg; Fall from Other Slipping, Tripping, or Stumbling; Place of Occurrence, [facility]idential Institution Social History Tobacco Use Types Packs/Day Years Used Date Smoking Tobacco: Never Assessed Sex and Gender Information Value Date Recorded Sex Assigned at Not on file Legal Sex Male 6:04 AM [employer] Gender Identity Not on file Sexual Orientation Not on file documented as of this encounter Plan of Treatment Pending Results Name Type Priority Associated Diagnoses Date /Time URINE CULTURE Microbiology Routine 8 11:48 PM [employer] documented as of this encounter Procedures Procedure Name Priority Date/Time Associated Diagnosis Comments POC GLUCOSE Routine 12/22/2007 11:44 AM [employer] POC GLUCOSE Routine 12/22/2007 7:08 AM [employer] POC GLUCOSE Routine 12/21/2007 8:18 PM [employer] POC GLUCOSE Routine 12/21/2007 5:12 PM [employer] POC GLUCOSE Routine 12/21/2007 11:04 AM [employer] POC GLUCOSE Routine 12/21/2007 7:27 AM [employer] POC GLUCOSE Routine 12/20/2007 8:30 PM [employer] POC GLUCOSE Routine 12/20/2007 5:03 PM [employer] POC GLUCOSE Routine 12/20/2007 11:18 AM [employer] POC GLUCOSE Routine 12/20/2007 6:57 AM [employer] URINALYSIS W/REFLEX MICROSCOPIC Routine 12/19/2007 11:49 PM [employer] POC GLUCOSE Routine 12/19/2007 8:02 PM [employer] POC GLUCOSE Routine 12/19/2007 4:51 PM [employer] POC GLUCOSE Routine 12/19/2007 11:22 AM [employer] POC GLUCOSE Routine 12/19/2007 7:29 AM [employer] POC GLUCOSE Routine 12/18/2007 8:23 PM [employer] XR FEMUR 2 VW LEFT Routine 12/18/2007 6: 24 PM [employer] XR PELVIS 1 OR 2 VW Routine 12/18/2007 6 :24 PM [employer] POC GLUCOSE Routine 12/18/2007 4:54 PM [employer] POC GLUCOSE Routine 12/18/2007 11:41 AM [employer] POC GLUCOSE Routine 12/18/2007 6:51 AM [employer] POC GLUCOSE Routine 12/17/2007 9:30 PM [employer] POC GLUCOSE Routine 12/17/2007 5:01 PM [employer] POC GLUCOSE Routine 12/17/2007 11:30 AM [employer] POC GLUCOSE Routine 12/17/2007 5:42 AM [employer] POC GLUCOSE Routine 12/17/2007 12:21 AM [employer] POC GLUCOSE Routine 12/16/2007 5:20 PM [employer] XR SPEECH EVALUATION COMPLEX Routine 12/16/2007 2:19 PM [employer] POC GLUCOSE Routine 12/16/2007 12:06 PM [employer] CBC WITH DIFFERENTIAL Routine 12/16/2007 6:27 AM [employer] BASIC METABOLIC PANEL Routine 12/16/2007 6:27 AM [employer] POC GLUCOSE Routine 12/16/2007 5:49 AM [employer] POC GLUCOSE Routine 12/16/2007 12:13 AM [employer] POC GLUCOSE Routine 12/15/2007 5:44 PM [employer] POC GLUCOSE Routine 12/15/2007 11:56 AM [employer] POC GLUCOSE Routine 12/15/2007 5:48 AM [employer] POC GLUCOSE Routine 12/15/2007 12:25 AM [employer] POC GLUCOSE Routine 12/14/2007 8:49 PM [employer] POC GLUCOSE Routine 12/14/2007 5:10 PM [employer] POC GLUCOSE Routine 12/14/2007 12:06 PM [employer] POC GLUCOSE Routine 12/14/2007 6:23 AM [employer] POC GLUCOSE Routine 12/13/2007 8:32 PM [employer] POC GLUCOSE Routine 12/13/2007 4:25 PM [employer] POC GLUCOSE Routine 12/13/2007 11:47 AM [employer] POC GLUCOSE Routine 12/13/2007 5:21 AM [employer] POC GLUCOSE Routine 12/12/2007 11:51 PM [employer] POC GLUCOSE Routine 12/12/2007 8:14 PM [employer] POC GLUCOSE Routine 12/12/2007 8:14 PM [employer] POC GLUCOSE Routine 12/12/2007 4:26 PM [employer] POC GLUCOSE Routine 12/12/2007 4:26 PM [employer] POC GLUCOSE Routine 12/12/2007 11:46 AM [employer] POC GLUCOSE Routine 12/12/2007 11:46 AM [employer] POC GLUCOSE Routine 12/12/2007 6:56 AM [employer] POC GLUCOSE Routine 12/12/2007 6:56 AM [employer] POC GLUCOSE Routine 12/12/2007 5:41 AM [employer] POC GLUCOSE Routine 12/12/2007 5:41 AM [employer] POC GLUCOSE Routine 12/11/2007 11:48 PM [employer] POC GLUCOSE Routine 12/11/2007 11:48 PM [employer] POC GLUCOSE Routine 12/11/2007 9:34 PM [employer] POC GLUCOSE Routine 12/11/2007 5:05 PM [employer] POC GLUCOSE Routine 12/11/2007 11:53 AM [employer] POC GLUCOSE Routine 12/11/2007 5:52 AM [employer] POC GLUCOSE Routine 12/10/2007 11:18 PM [employer] POC GLUCOSE Routine 12/10/2007 5:31 PM [employer] POC GLUCOSE Routine 12/10/2007 11:38 AM [employer] POC GLUCOSE Routine 12/10/2007 5:23 AM [employer] POC GLUCOSE Routine 12/09/2007 11:19 PM [employer] POC GLUCOSE Routine 12/09/2007 7:32 PM [employer] POC GLUCOSE Routine 12/09/2007 11:39 AM [employer] POC GLUCOSE Routine 12/09/2007 5:39 AM [employer] POC GLUCOSE Routine 12/08/2007 11:24 PM [employer] POC GLUCOSE Routine 12/08/2007 5:34 PM [employer] POC GLUCOSE Routine 12/08/2007 11:00 AM [employer] POC GLUCOSE Routine 12/08/2007 5:56 AM [employer] POC GLUCOSE Routine 12/07/2007 11:22 PM [employer] POC GLUCOSE Routine 12/07/2007 5:36 PM [employer] POC GLUCOSE Routine 12/07/2007 12:07 PM [employer] XR SPEECH EVALUATION COMPLEX Routine 12/07/2007 11:13 AM [employer] POC GLUCOSE Routine 12/07/2007 5:33 AM [employer] POC GLUCOSE Routine 12/06/2007 11:36 PM [employer] POC GLUCOSE Routine 12/06/2007 4:30 PM [employer] POC GLUCOSE Routine 12/06/2007 11:29 AM [employer] POC GLUCOSE Routine 12/06/2007 6:37 AM [employer] CBC WITH DIFFERENTIAL Routine 12/06/2007 6:05 AM [employer] POC GLUCOSE Routine 12/06/2007 12:04 AM [employer] POC GLUCOSE Routine 12/05/2007 4:51 PM [employer] POC GLUCOSE Routine 12/05/2007 11:57 AM [employer] POC GLUCOSE Routine 12/05/2007 6:38 AM [employer] POC GLUCOSE Routine 12/05/2007 5:28 AM [employer] POC GLUCOSE Routine 12/04/2007 11:33 PM [employer] POC GLUCOSE Routine 12/04/2007 4:49 PM [employer] POC GLUCOSE Routine 12/04/2007 10:58 AM [employer] POC GLUCOSE Routine 12/04/2007 5:13 AM [employer] POC GLUCOSE Routine 12/03/2007 11:37 PM [employer] POC GLUCOSE Routine 12/03/2007 5:06 PM [employer] POC GLUCOSE Routine 12/03/2007 10:54 AM [employer] POC GLUCOSE Routine 12/03/2007 5:16 AM [employer] POC GLUCOSE Routine 12/02/2007 11:21 PM [employer] ICTOTEST Routine 12/02/2007 9:18 PM [employer] URINALYSIS W/REFLEX MICROSCOPIC Routine 12/02/2007 9:18 PM [employer] POC GLUCOSE Routine 12/02/2007 5:21 PM [employer] POC GLUCOSE Routine 12/02/2007 11:17 AM [employer] POC GLUCOSE Routine 12/02/2007 8:37 AM [employer] POC GLUCOSE Routine 12/02/2007 5:37 AM [employer] POC GLUCOSE Routine 12/01/2007 11:57 PM [employer] POC GLUCOSE Routine 12/01/2007 4:53 PM [employer] POC GLUCOSE Routine 12/01/2007 10:48 AM [employer] POC GLUCOSE Routine 12/01/2007 5:37 AM [employer] ICTOTEST Routine 12/01/2007 3:37 AM [employer] GLUCOSE URINALYSIS, QUALITATIVE Routine 12/01/2007 3:37 AM [employer] URINALYSIS MICROSCOPY ONLY Routine 12/01/2007 3:37 AM [employer] KETONE, QUALITATIVE, URINE Routine 12/01/2007 3:37 AM [employer] URINALYSIS W/REFLEX MICROSCOPIC Routine 12/01/2007 3:37 AM [employer] POC GLUCOSE Routine 11/30/2007 11:50 PM [employer] POC BLOOD GAS, LYTES AND H+H Routine 11/30/2007 7:30 PM [employer] POC GLUCOSE Routine 11/30/2007 4:48 PM [employer] POC GLUCOSE Routine 11/30/2007 11:44 AM [employer] CBC WITH DIFFERENTIAL Routine 11/30/2007 6:15 AM [employer] VITAMIN B12 LEVEL Routine 11/30/2007 6:1 5 AM [employer] COMPREHENSIVE METABOLIC PANEL Routine 11/30/2007 6:15 AM [employer] POC GLUCOSE Routine 11/30/2007 5:36 AM [employer] POC GLUCOSE Routine 11/29/2007 11:59 PM [employer] XR HIP 2 OR 3 VIEWS LT Routine 7:13 PM [employer] documented in this encounter Results * (ABNORMAL) POC GLUCOSE (12/22/2007 11:44 AM [employer]) GLUCOSE POC 119(H) 60 - 100 mg/dL [facility] Capillary blood specimen (specimen) 12/22/2007 11:44 AM [employer] 12/22/2007 11:40 PM [employer] Jh Poe MD POINT OF CARE TESTING Final Resu lt Performing Organization Address [facility] Co de Phone Number [facility] [address] [place] [address] * (ABNORMAL) POC GLUCOSE (12/22/2007 7:08 AM [employer]) GLUCOSE POC 111(H) 60 - 100 mg/dL [facility] Capillary blood specimen (specimen) 12/22/2007 7:08 AM [employer] 12/22/2007 11:40 PM [employer] Jh Poe MD POINT OF CARE TESTING Final Resu lt Performing Organization Address [facility] Co de Phone Number [facility] [address] [place] [address] * (ABNORMAL) POC GLUCOSE (12/21/2007 8:18 PM [employer]) GLUCOSE POC 117(H) 60 - 100 mg/dL [facility] Capillary blood specimen (specimen) 12/21/2007 8:18 PM [employer] 12/21/2007 11:37 PM [employer] Jh Poe MD POINT OF CARE TESTING Final Resu lt Performing Organization Address [facility] de Phone Number [facility] [address] [place] [address] * POC GLUCOSE (12/21/2007 5:12 PM [employer]) GLUCOSE POC 84 60 - 100 mg/dL [facility] Capillary blood specimen (specimen) 12/21/2007 5:12 PM [employer] 12/21/2007 11:36 PM [employer] Jh Poe MD POINT OF CARE TESTING Final Resu lt Performing Organization Address [facility] Phone Number [facility] [address] [place] [address] * (ABNORMAL) POC GLUCOSE (12/21/2007 11:04 AM [employer]) GLUCOSE POC 117(H) 60 - 100 mg/dL [facility] Capillary blood specimen (specimen) 12/21/2007 11:04 AM [employer] 12/21/2007 11:36 PM [employer] Jh Poe MD POINT OF CARE TESTING Final Resu lt Performing Organization Address [facility] de Phone Number [facility] [address] [place] [address] * (ABNORMAL) POC GLUCOSE (12/21/2007 7:27 AM [employer]) GLUCOSE POC 107(H) 60 - 100 mg/dL [facility] Capillary blood specimen (specimen) 12/21/2007 7:27 AM [employer] 12/21/2007 11:40 PM [employer] Jh Poe MD POINT OF CARE TESTING Final Resu lt Performing Organization Address [facility] Co de Phone Number [facility] [address] [place] [address] * (ABNORMAL) POC GLUCOSE (12/20/2007 8:30 PM [employer]) GLUCOSE POC 134(H) 60 - 100 mg/dL [facility] Capillary blood specimen (specimen) 12/20/2007 8:30 PM [employer] 12/21/2007 12:44 AM [employer] Jh Poe MD POINT OF CARE TESTING Final Resu lt Performing Organization Address [facility] de Phone Number [facility] [address] [place] [address] * POC GLUCOSE (12/20/2007 5:03 PM [employer]) GLUCOSE POC 90 60 - 100 mg/dL [facility] Capillary blood specimen (specimen) 12/20/2007 5:03 PM [employer] 12/21/2007 12:44 AM [employer] Jh Poe MD POINT OF CARE TESTING Final Resu lt Performing Organization Address [facility] Phone Number [facility] [address] [place] [address] * (ABNORMAL) POC GLUCOSE (12/20/2007 11:18 AM [employer]) GLUCOSE POC 133(H) 60 - 100 mg/dL [facility] Capillary blood specimen (specimen) 12/20/2007 11:18 AM [employer] 12/21/2007 12:38 AM [employer] Jh Poe MD POINT OF CARE TESTING Final Resu lt Performing Organization Address [facility] Phone Number [facility] [address] [place] [address] * (ABNORMAL) POC GLUCOSE (12/20/2007 6:57 AM [employer]) COMMENT POC Follow Protocol [facility] GLUCOSE POC 106(H) 60 - 100 mg/dL [facility] Capillary blood specimen (specimen) 12/20/2007 6:57 AM [employer] 12/21/2007 12:37 AM [employer] Jh Poe MD POINT OF CARE TESTING Final Resu lt Performing Organization Address [facility] de Phone Number [facility] [address] [place] [address] * (ABNORMAL) URINALYSIS (12/19/2007 11:49 PM [employer]) UROBILINOGEN UA 0.2 0.2 [facility] CLARITY UA Clear Clear [facility] SPECIFIC GRAVITY UA >=1.030(A) <=1.005 [facility] GLUCOSE UA 250 mg/dl(A) NEGATIVE [facility] PH UA 5.5 5.0 - 9.0 [facility] BILIRUBIN UA NEGATIVE NEGATIVE [facility] LEUKOCYTE ESTERASE UA NEGATIVE NEGATIVE [facility] KETONES UA NEGATIVE NEGATIVE [facility] MICRO EXAM No No [facility] COLOR UA Yellow Straw [facility] PROTEIN UA NEGATIVE NEGATIVE [facility] BLOOD UA NEGATIVE NEGATIVE [facility] NITRITE UA NEGATIVE NEGATIVE [facility] Urine specimen (specimen) 12/19/2007 11:49 PM [employer] 12/19/2007 11:55 PM [employer] us Jh Poe MD URINE ORDERABLES Final Result Performing Organization Address [facility] de Phone Number [facility] [address] [place] [address] * (ABNORMAL) POC GLUCOSE (12/19/2007 8:02 PM [employer]) GLUCOSE POC 145(H) 60 - 100 mg/dL [facility] Capillary blood specimen (specimen) 12/19/2007 8:02 PM [employer] 12/20/2007 1:17 AM [employer] Jh Poe MD POINT OF CARE TESTING Final Resu lt Performing Organization Address [facility] de Phone Number [facility] [address] [place] [address] * (ABNORMAL) POC GLUCOSE (12/19/2007 4:51 PM [employer]) GLUCOSE POC 115(H) 60 - 100 mg/dL [facility] Capillary blood specimen (specimen) 12/19/2007 4:51 PM [employer] 12/20/2007 1:17 AM [employer] Jh Poe MD POINT OF CARE TESTING Final Resu lt Performing Organization Address [facility] Co de Phone Number [facility] [address] [place] [address] * (ABNORMAL) POC GLUCOSE (12/19/2007 11:22 AM [employer]) GLUCOSE POC 120(H) 60 - 100 mg/dL [facility] Capillary blood specimen (specimen) 12/19/2007 11:22 AM [employer] 12/20/2007 1:32 AM [employer] Jh Poe MD POINT OF CARE TESTING Final Resu lt Performing Organization Address [facility] Co de Phone Number [facility] [address] [place] [address] * (ABNORMAL) POC GLUCOSE (12/19/2007 7:29 AM [employer]) GLUCOSE POC 120(H) 60 - 100 mg/dL [facility] Capillary blood specimen (specimen) 12/19/2007 7:29 AM [employer] 12/20/2007 1:17 AM [employer] Jh Poe MD POINT OF CARE TESTING Final Resu lt Performing Organization Address [facility] Co de Phone Number [facility] [address] [place] [address] * (ABNORMAL) POC GLUCOSE (12/18/2007 8:23 PM [employer]) GLUCOSE POC 130(H) 60 - 100 mg/dL [facility] Capillary blood specimen (specimen) 12/18/2007 8:23 PM [employer] 12/19/2007 3:42 AM [employer] Jh Poe MD POINT OF CARE TESTING Final Resu lt [facility] [place] [address] * XR PELVIS 1 OR 2 VW (12/18/2007 6:24 PM [employer]) Anatomical Region Laterality Modality Pelvis Other 12/18/2007 6:24 PM [employer] Narrative 12/18/2007 6:24 PM [employer] LEFT HIP AND PELVIS: 12/18/2007 CLINICAL INFORMATION: [...] FEMUR 2 VW LEFT (12/18/2007 6:24 PM [employer]) Anatomical Region Laterality Modality Lower Extremity Other 12/18/2007 6:24 PM [employer] Narrative 12/18/2007 6:24 PM [employer] LEFT FEMUR: 12/18/2007 CLINICAL INFORMATION: Rule out [...] * (ABNORMAL) POC GLUCOSE (12/18/2007 4:54 PM [employer]) GLUCOSE POC 105(H) 60 - 100 mg/dL [facility] Capillary blood specimen (specimen) 12/18/2007 4:54 PM [employer] 12/19/2007 3:42 AM [employer] Jh Poe MD POINT OF CARE TESTING Final Resu lt Performing Organization Address [facility] de Phone Number [facility] [address] [place] [address] * (ABNORMAL) POC GLUCOSE (12/18/2007 11:41 AM [employer]) GLUCOSE POC 115(H) 60 - 100 mg/dL [facility] Capillary blood specimen (specimen) 12/18/2007 11:41 AM [employer] 12/19/2007 3:42 AM [employer] Jh Poe MD POINT OF CARE TESTING Final Resu lt Performing Organization Address [facility] de Phone Number [facility] [address] [place] [address] * (ABNORMAL) POC GLUCOSE (12/18/2007 6:51 AM [employer]) GLUCOSE POC 112(H) 60 - 100 mg/dL [facility] Capillary blood specimen (specimen) 12/18/2007 6:51 AM [employer] 12/19/2007 3:42 AM [employer] us Jh Poe MD POINT OF CARE TESTING Final Resu lt Performing Organization Address [facility] Phone Number [facility] [address] [place] [address] * POC GLUCOSE (12/17/2007 9:30 PM [employer]) GLUCOSE POC 83 60 - 100 mg/dL [facility] Capillary blood specimen (specimen) 12/17/2007 9:30 PM [employer] 12/18/2007 2:30 AM [employer] us Jh Poe MD POINT OF CARE TESTING Final Resu lt Performing Organization Address [facility] Phone Number [facility] [address] [place] [address] * POC GLUCOSE (12/17/2007 5:01 PM [employer]) GLUCOSE POC 80 60 - 100 mg/dL [facility] Capillary blood specimen (specimen) 12/17/2007 5:01 PM [employer] 12/18/2007 2:26 AM [employer] us Jh Poe MD POINT OF CARE TESTING Final Resu lt Performing Organization Address [facility] Phone Number [facility] [address] [place] [address] * (ABNORMAL) POC GLUCOSE (12/17/2007 11:30 AM [employer]) GLUCOSE POC 112(H) 60 - 100 mg/dL [facility] Capillary blood specimen (specimen) 12/17/2007 11:30 AM [employer] 12/18/2007 2:30 AM [employer] us Jh Poe MD POINT OF CARE TESTING Final Resu lt Performing Organization Address [facility] de Phone Number [facility] [address] [place] [address] * (ABNORMAL) POC GLUCOSE (12/17/2007 5:42 AM [employer]) GLUCOSE POC 119(H) 60 - 100 mg/dL [facility] Capillary blood specimen (specimen) 12/17/2007 5:42 AM [employer] 12/18/2007 2:26 AM [employer] Jh Poe MD POINT OF CARE TESTING Final Resu lt Performing Organization Address [facility] Phone Number [facility] [address] [place] [address] * (ABNORMAL) POC GLUCOSE (12/17/2007 12:21 AM [employer]) GLUCOSE POC 160(H) 60 - 100 mg/dL [facility] Capillary blood specimen (specimen) 12/17/2007 12:21 AM [employer] 12/18/2007 2:29 AM [employer] Jh Poe MD POINT OF CARE TESTING Final Resu lt Performing Organization Address [facility] Phone Number [facility] [address] [place] [address] * POC GLUCOSE (12/16/2007 5:20 PM [employer]) GLUCOSE POC 98 60 - 100 mg/dL [facility] Capillary blood specimen (specimen) 12/16/2007 5:20 PM [employer] 12/16/2007 11:42 PM [employer] Jh Poe MD POINT OF CARE TESTING Final Resu lt Performing Organization Address [facility] de Phone Number [facility] [address] [place] [address] * XR SPEECH EVALUATION COMPLEX (12/16/2007 2:19 PM [employer]) Anatomical Region Laterality Modality Other 12/16/2007 2:19 PM [employer] Narrative 12/16/2007 3:16 PM [employer] Fluoroscopy was used for performance of video swallow study. For further details, please see speech pathology report. - Procedure Note Octavio Young Jr. - 12/16/2007 Fluoroscopy was used for performance of video swallow study. For furtherdetails, please see speech pathology report. - us Jh Poe MD DIAGNOSTIC IMAGING ORDERABLES Fi nal Result * (ABNORMAL) POC GLUCOSE (12/16/2007 12:06 PM [employer]) GLUCOSE POC 154(H) 60 - 100 mg/dL [facility] Capillary blood specimen (specimen) 12/16/2007 12:06 PM [employer] 12/16/2007 11:41 PM [employer] us Jh Poe MD POINT OF CARE TESTING Final Resu lt Performing Organization Address City/State/[facility] Co de Phone Number [facility] [address] [place] [address] * (ABNORMAL) BASIC METABOLIC PANEL (12/16/2007 6:27 AM [employer]) POTASSIUM 4.3 3.5 - 5.0 mEq/L [facility] CALCIUM 9.3 8.4 - 10.5 mg/dL [facility] CREATININE 0.7 0.7 - 1.5 mg/dL [facility] CHLORIDE 103 95 - 110 mEq/L [facility] GLUCOSE 146(H) 70 - 110 mg/dL [facility] ANION GAP 13 9 - 20 mEq/L [facility] SODIUM 138 136 - 145 mEq/L [facility] CO2 26 22 - 32 mmol/l [facility] BUN 13 9 - 20 mg/dL [facility] OSMOLALITY, CALCULATED 287 275 - 295 mOsm/Kg [facility] Blood specimen (specimen) 12/16/2007 6:27 AM [employer] 12/16/2007 6:42 AM [employer] us Jh Poe MD CHEMISTRY ORDERABLES Final Resul t [facility] [address] [place] [address] * (ABNORMAL) CBC WITH DIFFERENTIAL (12/16/2007 6:27 AM [employer]) RBC 5.21 4.60 - 6.20 Mil/ul [facility] MCHC 34.5 30.0 - 35.0 g/dL [facility] LYMPHOCYTE ABSOLUTE 1.5 1.2 - 4.0 K/ul [facility] LYMPHOCYTES 20.7(L) 24.0 - 44.0 % [facility] MCV 87.9 84.0 - 103.0 Fl [facility] BASOPHILS 0.3 0.0 - 1.0 % [facility] MPV 11.9 8.9 - 12.8 Fl [facility] BASOPHILS ABSOLUTE 0.0 0.0 - 0.2 K/ul [facility] HEMOGLOBIN 15.8 14.0 - 18.0 g/dL [facility] MONOCYTES 8.2 2.0 - 10.0 % [facility] RDW 12.3 11.0 - 14.5 % [facility] MONOCYTE ABSOLUTE 0.6 0.1 - 0.6 K/ul [facility] WBC 7.4 4.8 - 10.8 K/ul [facility] NEUTROPHILS 68.6 42.2 - 75.2 % [facility] MCH 30.3 27.0 - 34.0 pg [facility] NEUTROPHIL ABSOLUTE 5.1 2.0 - 8.0 K/ul [facility] HEMATOCRIT 45.8 41.0 - 53.0 % [facility] PLATELETS 129(L) 140 - 440 K/ul [facility] EOSINOPHIL ABSOLUTE 0.2 0.0 - 0.7 K/ul [facility] EOSINOPHILS 2.2 0.0 - 7.0 % [facility] Blood specimen (specimen) 12/16/2007 6:27 AM [employer] 12/16/2007 6:42 AM [employer] Jh Poe MD HEMATOLOGY ORDERABLES Final Resu lt Performing Organization Address [facility] Phone Number [facility] [address] [place] [address] * (ABNORMAL) POC GLUCOSE (12/16/2007 5:49 AM [employer]) GLUCOSE POC 161(H) 60 - 100 mg/dL [facility] Capillary blood specimen (specimen) 12/16/2007 5:49 AM [employer] 12/16/2007 11:50 PM [employer] Jh Poe MD POINT OF CARE TESTING Final Resu lt Performing Organization Address [facility] Phone Number [facility] [address] [place] [address] * (ABNORMAL) POC GLUCOSE (12/16/2007 12:13 AM [employer]) GLUCOSE POC 130(H) 60 - 100 mg/dL [facility] Capillary blood specimen (specimen) 12/16/2007 12:13 AM [employer] 12/16/2007 11:50 PM [employer] Jh Poe MD POINT OF CARE TESTING Final Resu lt Performing Organization Address [facility] Phone Number [facility] [address] [place] [address] * (ABNORMAL) POC GLUCOSE (12/15/2007 5:44 PM [employer]) GLUCOSE POC 107(H) 60 - 100 mg/dL [facility] Capillary blood specimen (specimen) 12/15/2007 5:44 PM [employer] 12/15/2007 10:52 PM [employer] Jh Poe MD POINT OF CARE TESTING Final Resu lt Performing Organization Address [facility] de Phone Number [facility] [address] [place] [address] * (ABNORMAL) POC GLUCOSE (12/15/2007 11:56 AM [employer]) GLUCOSE POC 180(H) 60 - 100 mg/dL [facility] Capillary blood specimen (specimen) 12/15/2007 11:56 AM [employer] 12/15/2007 10:51 PM [employer] Jh Poe MD POINT OF CARE TESTING Final Resu lt Performing Organization Address [facility] Co de Phone Number [facility] [address] [place] [address] * (ABNORMAL) POC GLUCOSE (12/15/2007 5:48 AM [employer]) COMMENT POC Notify [facility] GLUCOSE POC 174(H) 60 - 100 mg/dL [facility] Capillary blood specimen (specimen) 12/15/2007 5:48 AM [employer] 12/15/2007 10:54 PM [employer] Jh Poe MD POINT OF CARE TESTING Final Resu Performing Organization Address [facility] Co de Phone Number [facility] [address] [place] [address] * (ABNORMAL) POC GLUCOSE (12/15/2007 12:25 AM [employer]) GLUCOSE POC 143(H) 60 - 100 mg/dL [facility] Capillary blood specimen (specimen) 12/15/2007 12:25 AM [employer] 12/15/2007 10:51 PM [employer] Jh Poe MD POINT OF CARE TESTING Final Resu lt Performing Organization Address [facility] Co de Phone Number [facility] [address] [place] [address] * (ABNORMAL) POC GLUCOSE (12/14/2007 8:49 PM [employer]) GLUCOSE POC 124(H) 60 - 100 mg/dL [facility] Capillary blood specimen (specimen) 12/14/2007 8:49 PM [employer] 12/14/2007 10:25 PM [employer] Jh Poe MD POINT OF CARE TESTING Final Resu lt Performing Organization Address [facility] Phone Number [facility] [address] [place] [address] * POC GLUCOSE (12/14/2007 5:10 PM [employer]) GLUCOSE POC 97 60 - 100 mg/dL [facility] Capillary blood specimen (specimen) 12/14/2007 5:10 PM [employer] 12/14/2007 10:25 PM [employer] Jh Poe MD POINT OF CARE TESTING Final Resu lt Performing Organization Address [facility] Phone Number [facility] [address] [place] [address] * (ABNORMAL) POC GLUCOSE (12/14/2007 12:06 PM [employer]) GLUCOSE POC 136(H) 60 - 100 mg/dL [facility] Capillary blood specimen (specimen) 12/14/2007 12:06 PM [employer] 12/14/2007 10:25 PM [employer] Jh Poe MD POINT OF CARE TESTING Final Resu lt Performing Organization Address [facility] Number [facility] [address] [place] [address] * (ABNORMAL) POC GLUCOSE (12/14/2007 6:23 AM [employer]) GLUCOSE POC 167(H) 60 - 100 mg/dL [facility] Capillary blood specimen (specimen) 12/14/2007 6:23 AM [employer] 12/14/2007 10:24 PM [employer] Jh Poe MD POINT OF CARE TESTING Final Resu lt Performing Organization Address [facility] de Phone Number [facility] [address] [place] [address] * (ABNORMAL) POC GLUCOSE (12/13/2007 8:32 PM [employer]) GLUCOSE POC 102(H) 60 - 100 mg/dL [facility] Capillary blood specimen (specimen) 12/13/2007 8:32 PM [employer] 12/13/2007 9:37 PM [employer] us Jh Poe MD POINT OF CARE TESTING Final Resu lt Performing Organization Address [facility] de Phone Number [facility] [address] [place] [address] * POC GLUCOSE (12/13/2007 4:25 PM [employer]) GLUCOSE POC 89 60 - 100 mg/dL [facility] Capillary blood specimen (specimen) 12/13/2007 4:25 PM [employer] 12/13/2007 9:37 PM [employer] us Jh Poe MD POINT OF CARE TESTING Final Resu lt Performing Organization Address [facility] de Phone Number [facility] [address] [place] [address] * (ABNORMAL) POC GLUCOSE (12/13/2007 11:47 AM [employer]) GLUCOSE POC 140(H) 60 - 100 mg/dL [facility] Capillary blood specimen (specimen) 12/13/2007 11:47 AM [employer] 12/13/2007 9:37 PM [employer] Jh Poe MD POINT OF CARE TESTING Final Resu lt Performing Organization Address [facility] de Phone Number [facility] [address] [place] [address] * (ABNORMAL) POC GLUCOSE (12/13/2007 5:21 AM [employer]) GLUCOSE POC 171(H) 60 - 100 mg/dL [facility] Capillary blood specimen (specimen) 12/13/2007 5:21 AM [employer] 12/13/2007 9:37 PM [employer] us Jh Poe MD POINT OF CARE TESTING Final Resu lt Performing Organization Address [facility] de Phone Number [facility] [address] [place] [address] * (ABNORMAL) POC GLUCOSE (12/12/2007 11:51 PM [employer]) GLUCOSE POC 110(H) 60 - 100 mg/dL [facility] Capillary blood specimen (specimen) 12/12/2007 11:51 PM [employer] 12/13/2007 9:37 PM [employer] us Jh Poe MD POINT OF CARE TESTING Final Resu lt Performing Organization Address [facility] Phone Number [facility] [address] [place] [address] * (ABNORMAL) POC GLUCOSE (12/12/2007 8:14 PM [employer]) GLUCOSE POC 128(H) 60 - 100 mg/dL INTERFACE SYSTEM 12/12/2007 8:14 PM [employer] us Jh Poe MD POINT OF CARE TESTING Edited Performing Organization Address [facility] de Phone Number INTERFACE SYSTEM Refer to clinic/hospital department * (ABNORMAL) POC GLUCOSE (12/12/2007 8:14 PM [employer]) GLUCOSE POC 128(H) 60 - 100 mg/dL [facility] Blood specimen (specimen) 12/12/2007 8:14 PM [employer] 12/12/2007 11:14 PM [employer] us Jh Poe MD POINT OF CARE TESTING Final Resu lt Performing Organization Address [facility] de Phone Number [facility] [address] [place] [address] * POC GLUCOSE (12/12/2007 4:26 PM [employer]) GLUCOSE POC 67 60 - 100 mg/dL INTERFACE SYSTEM 12/12/2007 4:26 PM [employer] Jh Poe MD POINT OF CARE TESTING Edited Performing Organization Address [facility] Phone Number INTERFACE SYSTEM Refer to clinic/hospital department * POC GLUCOSE (12/12/2007 4:26 PM [employer]) GLUCOSE POC 67 60 - 100 mg/dL [facility] Blood specimen (specimen) 12/12/2007 4:26 PM [employer] 12/12/2007 11:14 PM [employer] us Jh Poe MD POINT OF CARE TESTING Final Resu lt Performing Organization Address [facility] Phone Number [facility] [address] [place] [address] * (ABNORMAL) POC GLUCOSE (12/12/2007 11:46 AM [employer]) GLUCOSE POC 161(H) 60 - 100 mg/dL INTERFACE SYSTEM 12/12/2007 11:4 6 AM [employer] us Jh Poe MD POINT OF CARE TESTING Edited Performing Organization Address [facility] Phone Number INTERFACE SYSTEM Refer to clinic/hospital department * (ABNORMAL) POC GLUCOSE (12/12/2007 11:46 AM [employer]) GLUCOSE POC 161(H) 60 - 100 mg/dL [facility] Blood specimen (specimen) 12/12/2007 11:46 AM [employer] 12/12/2007 11:17 PM [employer] us Jh Poe MD POINT OF CARE TESTING Final Resu lt Performing Organization Address [facility] de Phone Number [facility] [address] [place] [address] * (ABNORMAL) POC GLUCOSE (12/12/2007 6:56 AM [employer]) GLUCOSE POC 145(H) 60 - 100 mg/dL INTERFACE SYSTEM 12/12/2007 6:56 AM [employer] us Jh Poe MD POINT OF CARE TESTING Edited Performing Organization Address [facility] Phone Number INTERFACE SYSTEM Refer to clinic/hospital department * (ABNORMAL) POC GLUCOSE (12/12/2007 6:56 AM [employer]) GLUCOSE POC 145(H) 60 - 100 mg/dL [facility] Blood specimen (specimen) 12/12/2007 6:56 AM [employer] 12/12/2007 11:14 PM [employer] Jh Poe MD POINT OF CARE TESTING Final Resu lt Performing Organization Address [facility] Phone Number [facility] [address] [place] [address] * (ABNORMAL) POC GLUCOSE (12/12/2007 5:41 AM [employer]) GLUCOSE POC 176(H) 60 - 100 mg/dL INTERFACE SYSTEM 12/12/2007 5:41 AM [employer] us Jh Poe MD POINT OF CARE TESTING Edited Performing Organization Address [facility] Phone Number INTERFACE SYSTEM Refer to clinic/hospital department * (ABNORMAL) POC GLUCOSE (12/12/2007 5:41 AM [employer]) GLUCOSE POC 176(H) 60 - 100 mg/dL [facility] Blood specimen (specimen) 12/12/2007 5:41 AM [employer] 12/12/2007 11:08 PM [employer] us Jh Poe MD POINT OF CARE TESTING Final Resu lt Performing Organization Address [facility] Phone Number [facility] [address] [place] [address] * (ABNORMAL) POC GLUCOSE (12/11/2007 11:48 PM [employer]) GLUCOSE POC 173(H) 60 - 100 mg/dL INTERFACE SYSTEM 12/11/2007 11:4 8 PM [employer] us Jh Poe MD POINT OF CARE TESTING Edited Performing Organization Address [facility] Phone Number INTERFACE SYSTEM Refer to clinic/hospital department * (ABNORMAL) POC GLUCOSE (12/11/2007 11:48 PM [employer]) GLUCOSE POC 173(H) 60 - 100 mg/dL [facility] Blood specimen (specimen) 12/11/2007 11:48 PM [employer] 12/12/2007 11:17 PM [employer] us Jh Poe MD POINT OF CARE TESTING Final Resu lt Performing Organization Address [facility] Phone Number [facility] [address] [place] [address] * (ABNORMAL) POC GLUCOSE (12/11/2007 9:34 PM [employer]) GLUCOSE POC 143(H) 60 - 100 mg/dL INTERFACE SYSTEM 12/11/2007 9:34 PM [employer] us Jh Poe MD POINT OF CARE TESTING Edited Performing Organization Address [facility] de Phone Number INTERFACE SYSTEM Refer to clinic/hospital department * (ABNORMAL) POC GLUCOSE (12/11/2007 5:05 PM [employer]) GLUCOSE POC 113(H) 60 - 100 mg/dL INTERFACE SYSTEM 12/11/2007 5:05 PM [employer] us Jh Poe MD POINT OF CARE TESTING Edited Performing Organization Address [facility] de Phone Number INTERFACE SYSTEM Refer to clinic/hospital department * (ABNORMAL) POC GLUCOSE (12/11/2007 11:53 AM [employer]) GLUCOSE POC 173(H) 60 - 100 mg/dL INTERFACE SYSTEM 12/11/2007 11:5 3 AM [employer] us Jh Poe MD POINT OF CARE TESTING Edited Performing Organization Address City/[facility] Co de Phone Number INTERFACE SYSTEM Refer to clinic/hospital department * (ABNORMAL) POC GLUCOSE (12/11/2007 5:52 AM [employer]) GLUCOSE POC 186(H) 60 - 100 mg/dL INTERFACE SYSTEM 12/11/2007 5:52 AM [employer] us Jh Poe MD POINT OF CARE TESTING Edited Performing Organization Address [facility] de Phone Number INTERFACE SYSTEM Refer to clinic/hospital department * (ABNORMAL) POC GLUCOSE (12/10/2007 11:18 PM [employer]) GLUCOSE POC 176(H) 60 - 100 mg/dL INTERFACE SYSTEM 12/10/2007 11:1 8 PM [employer] us Jh Poe MD POINT OF CARE TESTING Edited Performing Organization Address [facility] de Phone Number INTERFACE SYSTEM Refer to clinic/hospital department * (ABNORMAL) POC GLUCOSE (12/10/2007 5:31 PM [employer]) GLUCOSE POC 115(H) 60 - 100 mg/dL INTERFACE SYSTEM 12/10/2007 5:31 PM [employer] us Jh Poe MD POINT OF CARE TESTING Edited Performing Organization Address [place]/[facility] Co de Phone Number INTERFACE SYSTEM Refer to clinic/hospital department * (ABNORMAL) POC GLUCOSE (12/10/2007 11:38 AM [employer]) GLUCOSE POC 190(H) 60 - 100 mg/dL INTERFACE SYSTEM 12/10/2007 11:3 8 AM [employer] us Jh Poe MD POINT OF CARE TESTING Edited Performing Organization Address [place]/State/[facility] de Phone Number INTERFACE SYSTEM Refer to clinic/hospital department * (ABNORMAL) POC GLUCOSE (12/10/2007 5:23 AM [employer]) GLUCOSE POC 181(H) 60 - 100 mg/dL INTERFACE SYSTEM 12/10/2007 5:23 AM [employer] us Jh Poe MD POINT OF CARE TESTING Edited Performing Organization Address [place]/[facility] de Phone Number INTERFACE SYSTEM Refer to clinic/hospital department * (ABNORMAL) POC GLUCOSE (12/09/2007 11:19 PM [employer]) GLUCOSE POC 158(H) 60 - 100 mg/dL INTERFACE SYSTEM 12/09/2007 11:1 9 PM [employer] us Jh Poe MD POINT OF CARE TESTING Edited Performing Organization Address [facility] Phone Number INTERFACE SYSTEM Refer to clinic/hospital department * (ABNORMAL) POC GLUCOSE (12/09/2007 7:32 PM [employer]) GLUCOSE POC 168(H) 60 - 100 mg/dL INTERFACE SYSTEM 12/09/2007 7:32 PM [employer] us Jh Poe MD POINT OF CARE TESTING Edited Performing Organization Address [facility] de Phone Number INTERFACE SYSTEM Refer to clinic/hospital department * (ABNORMAL) POC GLUCOSE (12/09/2007 11:39 AM [employer]) GLUCOSE POC 201(H) 60 - 100 mg/dL INTERFACE SYSTEM 12/09/2007 11:3 9 AM [employer] us Jh Poe MD POINT OF CARE TESTING Edited Performing Organization Address [facility] de Phone Number INTERFACE SYSTEM Refer to clinic/hospital department * (ABNORMAL) POC GLUCOSE (12/09/2007 5:39 AM [employer]) GLUCOSE POC 179(H) 60 - 100 mg/dL INTERFACE SYSTEM 12/09/2007 5:39 AM [employer] us Jh Poe MD POINT OF CARE TESTING Edited INTERFACE SYSTEM Refer to clinic/hospital department * (ABNORMAL) POC GLUCOSE (12/08/2007 11:24 PM [employer]) GLUCOSE POC 174(H) 60 - 100 mg/dL INTERFACE SYSTEM 12/08/2007 11:2 4 PM [employer] us Jh Poe MD POINT OF CARE TESTING Edited INTERFACE SYSTEM Refer to clinic/hospital department * POC GLUCOSE (12/08/2007 5:34 PM [employer]) GLUCOSE POC 75 60 - 100 mg/dL INTERFACE SYSTEM 12/08/2007 5:34 PM [employer] us Jh Poe MD POINT OF CARE TESTING Edited Performing Organization Address City/[facility] Co de Phone Number INTERFACE SYSTEM Refer to clinic/hospital department * (ABNORMAL) POC GLUCOSE (12/08/2007 11:00 AM [employer]) GLUCOSE POC 180(H) 60 - 100 mg/dL INTERFACE SYSTEM 12/08/2007 11:0 0 AM [employer] us Jh Poe MD POINT OF CARE TESTING Edited INTERFACE SYSTEM Refer to clinic/hospital department * (ABNORMAL) POC GLUCOSE (12/08/2007 5:56 AM [employer]) GLUCOSE POC 203(H) 60 - 100 mg/dL INTERFACE SYSTEM 12/08/2007 5:56 AM [employer] us Jh Poe MD POINT OF CARE TESTING Edited INTERFACE SYSTEM Refer to clinic/hospital department * (ABNORMAL) POC GLUCOSE (12/07/2007 11:22 PM [employer]) GLUCOSE POC 189(H) 60 - 100 mg/dL INTERFACE SYSTEM 12/07/2007 11:2 2 PM [employer] us Jh Poe MD POINT OF CARE TESTING Edited Performing Organization Address [facility] de Phone Number INTERFACE SYSTEM Refer to clinic/hospital department * (ABNORMAL) POC GLUCOSE (12/07/2007 5:36 PM [employer]) GLUCOSE POC 140(H) 60 - 100 mg/dL INTERFACE SYSTEM 12/07/2007 5:36 PM [employer] us Jh Poe MD POINT OF CARE TESTING Edited Performing Organization Address [facility] de Phone Number INTERFACE SYSTEM Refer to clinic/hospital department * (ABNORMAL) POC GLUCOSE (12/07/2007 12:07 PM [employer]) GLUCOSE POC 198(H) 60 - 100 mg/dL INTERFACE SYSTEM 12/07/2007 12:0 7 PM [employer] us Jh Poe MD POINT OF CARE TESTING Edited Performing Organization Address [facility] Phone Number INTERFACE SYSTEM Refer to clinic/hospital department * XR SPEECH EVALUATION COMPLEX (12/07/2007 11:13 AM [employer]) Anatomical Region Laterality Modality Other 12/07/2007 11:1 3 AM [employer] Narrative 12/07/2007 11:13 AM [employer] A video swallowing study performed by speech [...] * (ABNORMAL) POC GLUCOSE (12/07/2007 5:33 AM [employer]) GLUCOSE POC 186(H) 60 - 100 mg/dL INTERFACE SYSTEM 12/07/2007 5:33 AM [employer] us Jh Poe MD POINT OF CARE TESTING Edited Performing Organization Address [place]/[facility] Co de Phone Number INTERFACE SYSTEM Refer to clinic/hospital department * (ABNORMAL) POC GLUCOSE (12/06/2007 11:36 PM [employer]) GLUCOSE POC 174(H) 60 - 100 mg/dL INTERFACE SYSTEM 12/06/2007 11:3 6 PM [employer] us Jh Poe MD POINT OF CARE TESTING Edited Performing Organization Address [place]/[facility] de Phone Number INTERFACE SYSTEM Refer to clinic/hospital department * (ABNORMAL) POC GLUCOSE (12/06/2007 4:30 PM [employer]) GLUCOSE POC 137(H) 60 - 100 mg/dL INTERFACE SYSTEM 12/06/2007 4:30 PM [employer] us Jh Poe MD POINT OF CARE TESTING Edited Performing Organization Address [place]/[facility] de Phone Number INTERFACE SYSTEM Refer to clinic/hospital department * (ABNORMAL) POC GLUCOSE (12/06/2007 11:29 AM [employer]) GLUCOSE POC 174(H) 60 - 100 mg/dL INTERFACE SYSTEM 12/06/2007 11:2 9 AM [employer] us Jh Poe MD POINT OF CARE TESTING Edited Performing Organization Address City/State/[facility] Co de Phone Number INTERFACE SYSTEM Refer to clinic/hospital department * (ABNORMAL) POC GLUCOSE (12/06/2007 6:37 AM [employer]) GLUCOSE POC 225(H) 60 - 100 mg/dL INTERFACE SYSTEM 12/06/2007 6:37 AM [employer] us Jh Poe MD POINT OF CARE TESTING Edited INTERFACE SYSTEM Refer to clinic/hospital department * CBC WITH DIFFERENTIAL (12/06/2007 6:05 AM [employer]) WBC 6.5 4.8 - 10.8 K/ul INTERFACE [...] 0.2 K/ul INTERFACE SYSTEM 12/06/2007 6:05 AM [employer] Jh Poe MD HEMATOLOGY ORDERABLES Edited INTERFACE SYSTEM Refer to clinic/hospital department * (ABNORMAL) POC GLUCOSE (12/06/2007 12:04 AM [employer]) GLUCOSE POC 196(H) 60 - 100 mg/dL INTERFACE SYSTEM 12/06/2007 12:0 4 AM [employer] us Jh Poe MD POINT OF CARE TESTING Edited Performing Organization Address City/State/[facility] Co de Phone Number INTERFACE SYSTEM Refer to clinic/hospital department * (ABNORMAL) POC GLUCOSE (12/05/2007 4:51 PM [employer]) GLUCOSE POC 145(H) 60 - 100 mg/dL INTERFACE SYSTEM 12/05/2007 4:51 PM [employer] Jh Poe MD POINT OF CARE TESTING Edited Performing Organization Address City/[facility] Co de Phone Number INTERFACE SYSTEM Refer to clinic/hospital department * (ABNORMAL) POC GLUCOSE (12/05/2007 11:57 AM [employer]) GLUCOSE POC 260(H) 60 - 100 mg/dL INTERFACE SYSTEM 12/05/2007 11:5 7 AM GREY GOODS MARKER Jh Poe MD POINT OF CARE TESTING Edited Performing Organization Address City/[facility] Co de Phone Number INTERFACE SYSTEM Refer to clinic/hospital department * (ABNORMAL) POC GLUCOSE (12/05/2007 6:38 AM [employer] MARKER) GLUCOSE POC 248(H) 60 - 100 mg/dL INTERFACE SYSTEM 12/05/2007 6:38 AM [employer] MARKER us Jh Poe MD POINT OF CARE TESTING Edited Performing Organization Address City/[facility] Co de Phone Number INTERFACE SYSTEM Refer to clinic/hospital department * (ABNORMAL) POC GLUCOSE (12/05/2007 5:28 AM [employer] MARKER) GLUCOSE POC 211(H) 60 - 100 mg/dL INTERFACE SYSTEM 12/05/2007 5:28 AM [employer] MARKER us Jh Poe MD POINT OF CARE TESTING Edited Performing Organization Address City/State/[facility] Co de Phone Number INTERFACE SYSTEM Refer to clinic/hospital department * (ABNORMAL) POC GLUCOSE (12/04/2007 11:33 PM [employer] MARKER) GLUCOSE POC 227(H) 60 - 100 mg/dL INTERFACE SYSTEM 12/04/2007 11:3 3 PM [employer] MARK[employer] us Jh Poe MD POINT OF CARE TESTING Edited Performing Organization Address City/[facility] de Phone Number INTERFACE SYSTEM Refer to clinic/hospital department * (ABNORMAL) POC GLUCOSE (12/04/2007 4:49 PM [employer] MARKER) GLUCOSE POC 147(H) 60 - 100 mg/dL INTERFACE SYSTEM 12/04/2007 4:49 PM [employer] MARKER us Jh Poe MD POINT OF CARE TESTING Edited Performing Organization Address [facility] de Phone Number INTERFACE SYSTEM Refer to clinic/hospital department * (ABNORMAL) POC GLUCOSE (12/04/2007 10:58 AM [employer] MARKER) GLUCOSE POC 200(H) 60 - 100 mg/dL INTERFACE SYSTEM 12/04/2007 10:5 8 AM [employer] MARKER us Jh Poe MD POINT OF CARE TESTING Edited Performing Organization Address [facility] de Phone Number INTERFACE SYSTEM Refer to clinic/hospital department * (ABNORMAL) POC GLUCOSE (12/04/2007 5:13 AM [employer] MARKER) GLUCOSE POC 204(H) 60 - 100 mg/dL INTERFACE SYSTEM 12/04/2007 5:13 AM [employer] MARKER Result Latasha Poe MD POINT OF CARE TESTING Edited Performing Organization Address City/[facility] de Phone Number INTERFACE SYSTEM Refer to clinic/hospital department * (ABNORMAL) POC GLUCOSE (12/03/2007 11:37 PM [employer] MARKER) GLUCOSE POC 183(H) 60 - 100 mg/dL INTERFACE SYSTEM 12/03/2007 11:3 7 PM [employer] MARKER us Jh Poe MD POINT OF CARE TESTING Edited Performing Organization Address City/[facility] Co de Phone Number INTERFACE SYSTEM Refer to clinic/hospital department * (ABNORMAL) POC GLUCOSE (12/03/2007 5:06 PM [employer] MARKER) GLUCOSE POC 125(H) 60 - 100 mg/dL INTERFACE SYSTEM 12/03/2007 5:06 PM [employer] MARKER us Jh Poe MD POINT OF CARE TESTING Edited Performing Organization Address City/State/[facility] Co de Phone Number INTERFACE SYSTEM Refer to clinic/hospital department * (ABNORMAL) POC GLUCOSE (12/03/2007 10:54 AM [employer] MARKER) GLUCOSE POC 241(H) 60 - 100 mg/dL INTERFACE SYSTEM 12/03/2007 10:5 4 AM [employer] MARKER us Jh Poe MD POINT OF CARE TESTING Edited Performing Organization Address City/[facility] Co de Phone Number INTERFACE SYSTEM Refer to clinic/hospital department * (ABNORMAL) POC GLUCOSE (12/03/2007 5:16 AM [employer] MARKER) GLUCOSE POC 216(H) 60 - 100 mg/dL INTERFACE SYSTEM 12/03/2007 5:16 AM [employer] MARKER us Jh Poe MD POINT OF CARE TESTING Edited Performing Organization Address [facility] Co de Phone Number INTERFACE SYSTEM Refer to clinic/hospital department * (ABNORMAL) POC GLUCOSE (12/02/2007 11:21 PM [employer] MARKER) GLUCOSE POC 171(H) 60 - 100 mg/dL INTERFACE SYSTEM 12/02/2007 11:2 1 PM [employer] MARKER us Jh Poe MD POINT OF CARE TESTING Edited INTERFACE SYSTEM Refer to clinic/hospital department * ICTOTEST (12/02/2007 9:18 PM [employer] MARKER) ICTO Negative Negative INTERFACE SYSTEM 12/02/2007 9:18 PM [employer] MARKER Jh Poe MD URINE ORDERABLES Edited Performing Organization Address [facility] Phone Number INTERFACE SYSTEM Refer to clinic/hospital department * (ABNORMAL) URINALYSIS (12/02/2007 9:18 PM [employer] MARKER) COLOR UA Yellow Straw INTERFACE SYSTEM CLARITY [...] No No INTERFACE SYSTEM 12/02/2007 9:18 PM [employer] MARKER Jh Poe MD URINE ORDERABLES Edited Performing Organization Address [facility] Phone Number INTERFACE SYSTEM Refer to clinic/hospital department * (ABNORMAL) POC GLUCOSE (12/02/2007 5:21 PM [employer] MARKER) GLUCOSE POC 156(H) 60 - 100 mg/dL INTERFACE SYSTEM 12/02/2007 5:21 PM [employer] MARKER Jh Poe MD POINT OF CARE TESTING Edited Performing Organization Address [facility] Phone Number INTERFACE SYSTEM Refer to clinic/hospital department * (ABNORMAL) POC GLUCOSE (12/02/2007 11:17 AM [employer] MARKER) GLUCOSE POC 206(H) 60 - 100 mg/dL INTERFACE SYSTEM 12/02/2007 11:1 7 AM [employer] MARKER Jh Poe MD POINT OF CARE TESTING Edited Performing Organization Address [facility] de Phone Number INTERFACE SYSTEM Refer to clinic/hospital department * (ABNORMAL) POC GLUCOSE (12/02/2007 8:37 AM [employer] MARKER) GLUCOSE POC 210(H) 60 - 100 mg/dL INTERFACE SYSTEM 12/02/2007 8:37 AM [employer] MARKER us Jh Poe MD POINT OF CARE TESTING Edited Performing Organization Address City/[facility] de Phone Number INTERFACE SYSTEM Refer to clinic/hospital department * (ABNORMAL) POC GLUCOSE (12/02/2007 5:37 AM [employer] MARKER) GLUCOSE POC 239(H) 60 - 100 mg/dL INTERFACE SYSTEM 12/02/2007 5:37 AM [employer] MARKER us Jh Poe MD POINT OF CARE TESTING Edited Performing Organization Address [facility] de Phone Number INTERFACE SYSTEM Refer to clinic/hospital department * (ABNORMAL) POC GLUCOSE (12/01/2007 11:57 PM [employer] MARKER) GLUCOSE POC 180(H) 60 - 100 mg/dL INTERFACE SYSTEM 12/01/2007 11:5 7 PM [employer] MARKER us Jh Poe MD POINT OF CARE TESTING Edited Performing Organization Address [facility] de Phone Number INTERFACE SYSTEM Refer to clinic/hospital department * (ABNORMAL) POC GLUCOSE (12/01/2007 4:53 PM [employer] MARKER) GLUCOSE POC 186(H) 60 - 100 mg/dL INTERFACE SYSTEM COMMENT POC Follow Protocol INTERFACE SYSTEM 12/01/2007 4:53 PM [employer] MARKER us Jh Poe MD POINT OF CARE TESTING Edited Performing Organization Address [facility] de Phone Number INTERFACE SYSTEM Refer to clinic/hospital department * (ABNORMAL) POC GLUCOSE (12/01/2007 10:48 AM [employer] MARKER) GLUCOSE POC 238(H) 60 - 100 mg/dL INTERFACE SYSTEM COMMENT POC Follow Protocol INTERFACE SYSTEM 12/01/2007 10:4 8 AM [employer] MARKER us Jh Poe MD POINT OF CARE TESTING Edited Performing Organization Address City/[facility]/ZIP Co de Phone Number INTERFACE SYSTEM Refer to clinic/hospital department * (ABNORMAL) POC GLUCOSE (12/01/2007 5:37 AM [employer] MARKER) GLUCOSE POC 212(H) 60 - 100 mg/dL INTERFACE SYSTEM 12/01/2007 5:37 AM [employer] MARKER Result [facility] Jh Poe MD POINT OF CARE TESTING Edited Performing Organization Address [facility] Phone Number INTERFACE SYSTEM Refer to clinic/hospital department * (ABNORMAL) URINALYSIS MICROSCOPY ONLY (12/01/2007 3:37 AM [employer] MARKER) WBC URINE None Seen 0 - 2 INTERFACE SYSTEM RBC UA 0-2 0 - 2 INTERFACE SYSTEM HYALINE CAST 3-5(A) 0 - 2 INTERFA CE SYSTEM BACTERIA UA None Seen None Seen INTERFAC E SYSTEM 12/01/2007 3:37 AM [employer] MARKER us Jh Poe MD URINE ORDERABLES Edited Performing Organization Address [facility] Phone Number INTERFACE SYSTEM Refer to clinic/hospital department * ICTOTEST (12/01/2007 3:37 AM [employer] MARKER) ICTO Negative Negative INTERFACE SYSTEM 12/01/2007 3:37 AM [employer] MARKER us Jh Poe MD URINE ORDERABLES Edited Performing Organization Address [facility] Phone Number INTERFACE SYSTEM Refer to clinic/hospital department * (ABNORMAL) ACETONE QUALITATIVE, URINE (12/01/2007 3:37 AM [employer] MARKER) KETONES UA Moderate(A ) Negative INTERFACE SYSTEM 12/01/2007 3:37 AM [employer] MARKER us Jh Poe MD URINE ORDERABLES Edited Performing Organization Address [facility] de Phone Number INTERFACE SYSTEM Refer to clinic/hospital department * (ABNORMAL) GLUCOSE URINALYSIS, QUALITATIVE (12/01/2007 3:37 AM [employer] MARKER) GLUCOSE, URINE 3000(A) Negative INTER FACE SYSTEM 12/01/2007 3:37 AM [employer] MARKER Jh Poe MD URINE ORDERABLES Edited Performing Organization Address [facility] Phone Number INTERFACE SYSTEM Refer to clinic/hospital department * (ABNORMAL) URINALYSIS (12/01/2007 3:37 AM [employer] MARKER) COLOR UA Yellow Straw INTERFACE SYSTEM CLARITY [...] Yes(A) No INTERFACE SYSTEM 12/01/2007 3:37 AM [employer] MARKER Jh Poe MD URINE ORDERABLES Edited Performing Organization Address [facility] Phone Number INTERFACE SYSTEM Refer to clinic/hospital department * (ABNORMAL) POC GLUCOSE (11/30/2007 11:50 PM [employer] MARKER) GLUCOSE POC 247(H) 60 - 100 mg/dL INTERFACE SYSTEM 11/30/2007 11:5 0 PM [employer] MARKER Jh Poe MD POINT OF CARE TESTING Edited Performing Organization Address [facility] Phone Number INTERFACE SYSTEM Refer to clinic/hospital department * (ABNORMAL) POC ISTAT EG 7+ (11/30/2007 7:30 PM [employer] MARKER) SPECIMEN TYPE Arterial INTERF STEPAN SYSTEM Comment: Test Performed By [id number] Pulse OX: 94 Hemoglobin calculated from Hematocrit [...] 1.32 mmol/l INTERFACE SYSTEM 11/30/2007 7:30 PM [employer] MARKER us Jh Poe MD POINT OF CARE TESTING COM Edited INTERFACE SYSTEM Refer to clinic/hospital department * (ABNORMAL) POC GLUCOSE (11/30/2007 4:48 PM [employer] MARKER) GLUCOSE POC 200(H) 60 - 100 mg/dL INTERFACE SYSTEM 11/30/2007 4:48 PM [employer] MARKER us Jh Poe MD POINT OF CARE TESTING Edited INTERFACE SYSTEM Refer to clinic/hospital department * (ABNORMAL) POC GLUCOSE (11/30/2007 11:44 AM [employer] MARKER) GLUCOSE POC 179(H) 60 - 100 mg/dL INTERFACE SYSTEM 11/30/2007 11:4 4 AM [employer] MARKER us Jh Poe MD POINT OF CARE TESTING Edited INTERFACE SYSTEM Refer to clinic/hospital department * VITAMIN B12 (11/30/2007 6:15 AM [employer] MARKER) VITAMIN B12 813 211 - 911 pg/dL INTERFACE SYSTEM 11/30/2007 6:15 AM [employer] MARKER Jh Poe MD CHEMISTRY ORDERABLES Edited Performing Organization Address [facility] Phone Number INTERFACE SYSTEM Refer to clinic/hospital department * (ABNORMAL) COMPREHENSIVE METABOLIC PANEL (11/30/2007 6:15 AM [employer] MARKER) BUN 9 9 - 20 mg/dL INTERFACE [...] 295 mOsm/Kg INTERFACE SYSTEM 11/30/2007 6:15 AM [employer] MARKER Jh Poe MD CHEMISTRY ORDERABLES Edited Performing Organization Address [facility] Phone Number INTERFACE SYSTEM Refer to clinic/hospital department * (ABNORMAL) CBC WITH DIFFERENTIAL (11/30/2007 6:15 AM [employer] MARKER) WBC 5.6 4.8 - 10.8 K/ul INTERFACE [...] 0.2 K/ul INTERFACE SYSTEM 11/30/2007 6:15 AM [employer] MARKER Jh Poe MD HEMATOLOGY ORDERABLES Edited Performing Organization Address City/[facility]/ZIP Co de Phone Number INTERFACE SYSTEM Refer to clinic/hospital department * (ABNORMAL) POC GLUCOSE (11/30/2007 5:36 AM [employer] MARKER) GLUCOSE POC 157(H) 60 - 100 mg/dL INTERFACE SYSTEM 11/30/2007 5:36 AM [employer] MARKER Jh Poe MD POINT OF CARE TESTING Edited INTERFACE SYSTEM Refer to clinic/hospital department * (ABNORMAL) POC GLUCOSE (11/29/2007 11:59 PM [employer] MARKER) GLUCOSE POC 196(H) 60 - 100 mg/dL INTERFACE SYSTEM COMMENT POC Notify R.N INTERFA CE SYSTEM 11/29/2007 11:5 9 PM [employer] MARKER Jh Poe MD POINT OF CARE TESTING Edited INTERFACE SYSTEM Refer to clinic/hospital department * XR HIP 2+ VW LEFT (11/29/2007 7:13 PM [employer] MARKER) Anatomical Region Laterality Modality Lower Extremity Left Other 11/29/2007 7:13 PM [employer] MARKER Narrative 01/02/2009 4:39 AM [employer] MARKER LEFT HIP AND PELVIS: 12/18/2007 CLINICAL INFORMATION: [...] Encounter for long-term (current) use of insulin ([facility]) Encounter for long-term (current) use of insulin [...] institution documented in this encounter Care Teams Manager Construction Relationship Specialty Start Date End Date Jaylene Mccoy DO PCP - General Family Practice 02/08/15 documented as of this encounter
--- OUTSIDE RECORDS SUMMARY | 2025-05-21 06:45 | XMS_ITS | Encounter Summary ---
Author Organization [facility] Address [address] [place] [address] Care Team Providers Care [employer] Name Role Phone Jaylene Mccoy DO Primary Care Provider [phone] Encounter Details Date Type Department Care Team (Late st Contact Info) Description 06/07/2015 Ancillary Orders [facility] Admitting [address] [place] [id number] Yo Hunt, DPMar [address] [place] [address] Hammer toe (Primary Dx) Social History Tobacco Use Types Packs/Day Years Used Date Smoking Tobacco: Every Day Cigarettes Alcohol Use Standard Drinks/Week Comments Yes 0 (1 standard drink = 0.6 oz pur e alcohol) rarely Sex and Gender Information Value Date Recorded Sex Assigned at Not on file 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
--- NOTE | 2025-05-21 07:28 | PHA.VACGOAL ---
Vancomycin Goal - Goal Vancomycin Goal:: 15-20 mg/L Vancomycin Indication:: Osteo - Therapy Day of therpy:: Day []of [] . Actual body weight (kg): 171 lb - Data Labs: WBC 13.54 10^3/uL (3.29-11.43) H 05/20/25 21:55 RBC 4.67 10^6/uL (3.85-5.65) 05/20/25 21:55 Hgb 14.70 g/dL (11.27-16.99) 05/20/25 21:55 Hct 44.1 % (37-53) 05/20/25 21:55 MCV 94.4 fl (82-101) 05/20/25 21:55 MCH 31.5 pg (27-33) 05/20/25 21:55 MCHC 33.3 g/dL (30-55) 05/20/25 21:55 RDW 13.5 % (12.1-15.1) 05/20/25 21:55 Sodium 133 mmol/L (136-145) L 05/20/25 21:55 Potassium 3.8 mmol/L (3.5-5.1) 05/20/25 21:55 Chloride 95 mmol/L (98-107) L 05/20/25 21:55 Carbon Dioxide 22 mmol/L (22-29) 05/20/25 21:55 Anion Gap 19.8 (5-19) H 05/20/25 21:55 BUN 15 mg/dL (8-23) 05/20/25 21:55 Creatinine 0.8 mg/dL (0.7-1.2) 05/20/25 21:55 GFR Calculation Not Reportable 05/20/25 21:55 Treatment plan:: new consult Regimen:: 1000 mg q12h per telepharmacy Continue to monitor
--- NOTE | 2025-05-21 09:25 | P.CONIM_ITS ---
Providers/Reason For Consult 2 Consulting Physician/Specialty*: Dr. Jh White, DPMar/ Podiatry Reason for Consult*: Left ankle wound/concern for osteomyelitis Attending Physician: Jovana Weaver MD Primary Care Provider: JUDITH Kamara History of Present Illness History of Present Illness Patient is a 70-year-old male currently admitted to the ICU with past medical history of type 2 diabetes, peripheral neuropathy, history of CVA and peripheral arterial disease patient initially presented to the emergency department on 05/21/2025 with complaint of altered mental status over the course of the past couple of days. Workup revealed pneumonia left lower lobe. Patient was also found to have full-thickness ulceration to left lateral malleolus for which she follows wound care for regularly. X-rays were obtained which show cortical erosion of distal fibula associated with wound concerning for osteomyelitis. Podiatry was consulted to evaluate and provide further recommendations. Review of Systems 2 General: Reports: 10 or more systems reviewed and unremarkable except in HPI and below Const: Denies: fever(s), chills, body aches or change in appetite Eyes: Denies: change in vision or blurry vision Card: Denies: chest pain, palpitations or irregular heart rhythm Resp: Denies: dyspnea GI: Denies: abdominal pain, nausea, vomiting or diarrhea Musc: Reports: joint stiffness Skin/Breast: Reports: non-healing lesions and lesions Neuro: Reports: numbness in extremities Medications/Allergies Home Medications ?Medication ?Instructions ?Recorded ?Confirmed ?Last Taken ?Type hydrocodone 10 mg-acetaminophen 1 tab PO Q8H PRN Pain 03/21/24 05/21/25 06/27/24 History 325 mg tablet blood sugar diagnostic #100 ea 10/24/24 05/21/25 Rx lancets #200 ea 10/24/24 05/21/25 Rx metformin 1,000 mg tablet 1,000 mg PO BID 01/08/2505/20/25 History Held on 04/10/25. Instructions: Resume on 04/12/25. gabapentin 400 mg capsule 400 mg PO BID 04/06/2505/2105/20/25 History tizanidine 4 mg tablet 4 mg PO BEDTIME PRN Muscle 0 04/06/25 05/21/25 05/19/25 20:00 History Spasticity aspirin 81 mg tablet,delayed 81 mg PO DAILY #90 tabs 0 04/10/25 05/21/25 05/20/25 Rx release atorvastatin 20 mg tablet 20 mg PO QPM #90 tabs 05/21/25 05/20/25 18:00 Rx clopidogrel 75 mg tablet 75 mg PO DAILY #90 tabs 04/0905/21/25 05/20/25 Rx dulaglutide 3 mg/0.5 mL 3 mg (0.5 mL) SUBCUT ONCE 30 days 05/02/25 05/21/25 05/20/25 Rx [facility] memantine 10 mg tablet 10 mg PO DAILY 30 days #30 t abs 05/15/25 05/21/25 05/20/25 Rx Allergies Allergy/AdvReac Type Severity Reaction Status Date / Time No Known Allergies Allergy Verified 05/20/25 21:45 Current Medications Generic Name Dose Route Start Last Admin Trade Name Freq PRN Reason Stop Dose Admin Aspirin 81 mg 05/21/25 09:00 05/21/25 08:59 Aspirin 81 Mg Ec Tablet PO 81 mg DAILY STEPHIE Administration Azithromycin 500 mg 05/21/25 09:00 05/21/25 08:59 Azithromycin 250 Mg Tablet PO 500 mg DAILY STEPHIE Administration Protocol Ceftriaxone Sodium 1,000 mg 05/21/25 02:00 05/21/25 02:33 Ceftriaxone 1,000 Mg Sdv IVP 1,000 mg Q24H STEPHIE Administration Protocol Clopidogrel Bisulfate 75 mg 05/21/25 09:00 05/21/25 08:59 Clopidogrel 75 Mg Tablet PO 75 mg DAILY STEPHIE Administration Enoxaparin Sodium 40 mg 05/21/25 09:00 05/21/25 08:59 Enoxaparin 40 Mg/0.4 Ml Syringe SUBCUT 40 mg Q24H STEPHIE Administration Gabapentin 400 mg 05/21/25 09:00 05/21/25 09:00 Gabapentin 400 Mg Capsule PO 400 mg BID STEPHIE Administration Sodium Chloride 1,000 mls @ 75 mls/hr 05/21/25 02:00 05/21/25 02:27 Sodium Chloride 0.9% IV 75 mls/hr .[id number] STEPHIE Administration Norepinephrine Bitartrate 4 mg in 250 mls @ 0 mls/hr 05/21/25 02:15 05/21/25 05:25 Levophed IV 0 mcg/min .Q0M STEPHIE 0 mls/hr Protocol Titration Per Protocol Insulin Human Lispro 0 unit 05/21/25 08:00 05/21/25 08:59 Insulin Lispro 100 Unit/1 Ml SUBCUT 2 unit WM&BEDTIME STEPHIE Administration Protocol Pantoprazole Sodium 40 mg 05/21/25 09:00 05/21/25 09:[address] 40 Mg Tablet PO 40 mg DAILY STEPHIE Administration Tamsulosin HCl 0.4 mg 05/21/25 09:00 05/21/25 09:00 Tamsulosin 0.4 Mg Capsule PO 0.4 mg DAILY STEPHIE Administration PFSH Acute 2 PFSH: Medical History (Updated 05/21/25 @ 20:04 by Jh White DPM) Mixed hyperlipidemia Memory loss of unknown cause Anemia Leg wound, left Tobacco dependence Nail deformity 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 Onychomycosis Dandruff Cellulitis of left foot Mild aortic stenosis Enrolled in chronic care management Fatigue Heart murmur Chronic instability of ankle Chronic ankle pain Prostate cancer screening Smoker unmotivated to quit Vitamin D deficiency Essential hypertension Toenail deformity Diabetic foot Encounter for long-term opiate analgesic use Opioid contract exists Long-term use of high-risk medication Chronic low back pain Surgical History S/P knee replacement LEFT KNEE REPLACEMENT 2019 Hx of toe surgery PIN PLACEMENT IN LEFT GREAT TOE Family History Other Cancer Congestive heart failure (CHF) Social History Smoking and tobacco/nicotine status: former use of tobacco/nicotine Alcohol intake: current Alcohol intake frequency: holidays/special occasions only Alcohol type: beer Substance/Drug Use: never Vitals/I&O/Wt Last Vital Signs Temp 98.0 F 05/21/25 02:00 Pulse 76 05/21/25 05:34 Resp 21 H 05/21/25 05:30 BP 117/55 05/21/25 05:30 Pulse Ox 98 05/21/25 05:30 O2 Del Method Nasal Cannula 05/21/25 02:01 O2 Flow Rate 2 05/20/25 22:02 05/20/25 05/21/25 05/21/25 22:59 06:59 14:59 Intake Total 2373.375 / 2373.375 Balance 2373.375 / 2373.375 Weight last 48 hrs Weight 171 lb Weight 171 lb 15.369 oz Weight 165 lb Physical Exam 2 Narrative: BELOW IS A FOCUSED LOWER EXTREMITY EXAM GENERAL: A&O x 3 VASCULAR: DP/PT pulses palpable 2/4 with CFT intact, <3seconds to distal digits DERMATOLOGICAL: Full-thickness ulceration to lateral aspect of left ankle overlying lateral malleolus. Measures 1.2 x 1.2 x 0.1 cm with 100% granular wound bed. No underlying fluctuance. No active drainage. MUSCULOSKELETAL: Mild tenderness with palpation of periwound area to lateral left ankle NEUROLOGICAL: Neurological sensation to the affected foot and ankle is present through L4-S1 dermatomes with no hyper/hypoesthesias, negative Tinel or Valleix's sign IMAGING: Three-view x-rays of the left ankle were independently interpreted by me. These show no subcutaneous emphysema. Questionable erosive changes of lateral cortex of the distal fibula, likely chronic osteomyelitis. No evidence of acute osteomyelitis. No pathological fracture noted. Urinary Catheter Management: Tee: Cath Placed During This Visit: yes Urinary Catheter Date of Insertion: 05/21/25 Urinary Catheter Time of Insertion: 08:27 Data 05/20/25 21:55 05/20/25 21:55 Micro: Microbiology 05/20/25 22:28 Blood Culture - Preliminary Blood SPECIMEN COLLECTED 05/20/25 21:55 Blood Culture - Preliminary Blood SPECIMEN COLLECTED A&P Assessment and plan 1. Osteomyelitis of left ankle: 2. Type 2 diabetes mellitus: 3. 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 -No plan for surgical intervention from podiatry standpoint. Left lateral malleolus wound is stable in appearance. No debridement warranted. No evidence of underlying abscess. Radiographs concerning for possible osteomyelitis, chronic in nature. Patient follows with wound care. Recommend follow-up with wound care. Patient may be candidate for hyperbarics. Recommend oral antibiotics on discharge with good bone penetration such as doxycycline or Levaquin. Recommend follow-up with wound care upon discharge from hospital. -Pain Mgmt: Per primary team -Weight bearing: As tolerated from podiatry standpoint -Dressings: Daily Allevyn pad to left lateral malleolus wound -Continue current Abx therapy until ID and Sensitivity results -Trend labs -Discharge plan: Patient okay to discharge from podiatry standpoint once deemed stable from primary medical team -Podiatry will sign off as no debridement is warranted during this admission. 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
[2025-05-21 11:22] LABS: MRSA PCR OZH (swab) MRSA Detected (Negative)
--- NOTE | 2025-05-21 13:32 | PM.MISC ---
Miscellaneous Note Note: seen today agree with HnP MRSA nares positive
[2025-05-21] MEDS: ATORVASTATIN 10 MG TABLET 20 MG PO (20:51)
[2025-05-22] VITALS (26 sets, daily range): BP systolic 100–151; BP diastolic 55–73; PULSE 84–108; RESP 16–32; TEMP 36.7–38.6; O2SAT 90–99
[2025-05-22] MEDS: cefTRIAXone 1,000 mg SDV 1000 MG IVP (01:28)
[2025-05-22 05:03] LABS: Hematocrit 37.6 % (37-53); Hemoglobin 12.40 g/dL (11.27-16.99); Mean Corpuscular HGB Conc 33.0 g/dL (30-55); Mean Corpuscular Hemoglobin 31.8 pg (27-33); Mean Corpuscular Volume 96.4 fl (82-101); Nucleated Red Blood Cells % 0 %; Platelet Count 137 10^3/cmm (157-399); Red Blood Count 3.90 10^6/uL (3.85-5.65); White Blood Count 8.02 10^3/uL (3.29-11.43)
[2025-05-22 05:27] LABS: Alanine Aminotransferase 9 U/L (0-41); Albumin Level 3.1 g/dL (3.5-5.2); Alkaline Phosphatase 98 U/L (40-130); Anion Gap 14.4 (5-19); Aspartate Amino Transferase 9 U/L (0-40); Blood Urea Nitrogen 11 mg/dL (8-23); Calcium 8.4 mg/dL (8.5-10.5); Carbon Dioxide 24 mmol/L (22-29); Chloride 100 mmol/L (98-107); Creatinine Clr Calc Pharmacy 91.5941; Globulin 3.1 g/dL (1.3-4.6); Glucose 147 mg/dL (65-115); Magnesium 1.6 mg/dL (1.7-2.3); Osmolality Calculated 282 mOsm/kg (285-295); Potassium 3.4 mmol/L (3.5-5.1); Sodium 135 mmol/L (136-145); Total Protein 6.2 g/dL (6.6-8.7)
[2025-05-22 11:07] LABS: C.Diff PCR (Lab) NEGATIVE (Negative)
--- NOTE | 2025-05-22 14:04 | P.PN_ITS ---
Subjective 2 Subjective: afebrile overnight leukocyte 8.02 this am K 3.4 mag 1.6 this am Vitals/I&O/Wt Last Vital Signs Temp 98.3 F 05/22/25 07:54 Pulse 108 H 05/22/25 12:00 Resp 16 05/22/25 12:00 BP 151/73 05/22/25 12:00 Pulse Ox 90 05/22/25 12:00 O2 Del Method Room Air 05/22/25 12:00 O2 Flow Rate 2 05/20/25 22:02 05/21/25 05/22/25 05/22/25 22:59 06:59 14:59 Intake Total 1000 / 1250 250 / 1500 1000 / 1000 Output Total 1200 / 1200 Balance -200 / 50 250 / 300 1000 / 1000 Weight last 48 hrs Weight 77.5 kg Weight 77.564 kg Weight 78 kg Weight 74.843 kg Physical Exam 2 Narrative: General: No acute distress, AO x3, HEENT: PERRLA, pupils bilaterally equal and reactive, pallors not present Chest: Normal vesicular breath sounds, no added sounds, equal good air entry bilaterally CVS: S1-S2 regular, no murmurs, Abdomen: Soft, nontender, bowel sounds present Neuro: No focal deficits, no facial deformity, AO x3, Extremities: Open ulcer with surrounding erythema concerning for cellulitis around the left ankle. Urinary Catheter Management: Tee: Cath Placed During This Visit: yes Reason for Continuing Indwelling Catheter: Accurate Measurement of Urinary Output in Critically Ill Patients Urinary Catheter Date of Insertion: 05/21/25 Urinary Catheter Time of Insertion: 08:27 Data 05/22/25 04:30 05/22/25 04:30 Micro: Microbiology 05/21/25 09:13 Gram Stain - Final Sputum - Expectorated Sputum Sputum Culture - Preliminary 05/20/25 22:28 Blood Culture - Preliminary Blood NEGATIVE TO DATE 05/20/25 21:55 Blood Culture - Preliminary Blood NEGATIVE TO DATE A&P Assessment and plan 1. Sepsis: 2. Osteomyelitis of left ankle: 3. Community acquired pneumonia: 4. Type 2 diabetes mellitus: 5. Altered mental status: Plan: 70-year-old male with history as described above, presenting to the hospital with 2 to 3 days of fever, generalized weakness, cough and pain over the left lower extremity. With leukocytosis, fever of 102 Fahrenheit, elevated lactate, elevated procalcitonin, qSOFA score of 3, concern for sepsis. Normal capillary refill at this time. Source of sepsis appears to be pneumonia seen in the left lower lobe on chest x- ray versus osteomyelitis of the left ankle. Blood culture taken in the emergency room Will additionally order for sputum culture, MRSA nasal screen. Patient received empiric antibiotics cefepime vancomycin and doxycycline in the emergency room. Will continue with ceftriaxone 1 g IV every 24 hours, azithromycin 500 mg p.o. daily for community-acquired pneumonia and additionally add vancomycin for the osteomyelitis. Maintenance IV fluids with normal saline at 75 cc an hour, he received septic bolus in the emergency room. Repeat lactate is improving normalized. Initiate Levophed to maintain MAP greater than 65 mmHg. Will consult podiatry for ankle osteomyelitis. On initial arrival patient was noted to be confused and lethargic and LP was considered, however once his fever improved and he was better hydrated, by the time he arrived to the ICU he was alert awake oriented and able to answer all questions. Suspect that his altered mentation upon initial arrival was related to metabolic encephalopathy from sepsis and fever. Lumbar puncture has been deferred given quick improvement in mental status. CT head has been ordered currently pending. Given recent history of peripheral intervention, will continue aspirin and Plavix for now. Low-dose insulin sliding scale for diabetes mellitus DVT prophylaxis: Lovenox 40 mg subcutaneously every 24 hours Full code 05/22/2025 Seen this morning. Vancomycin ceftriaxone and azithromycin to be continued. Patient is on room air saturating 90%. Recommendations from podiatry. Plan to follow-up with wound care outpatient. No acute intervention indicated at this time. Appreciate podiatry recommendation. Ordered 2 g IV magnesium. Continue IV antibiotics. Transfer to floor today. PDMP PDMP Reviewed: Not Reviewed Attestations 2 Medical Necessity Statement*: pneumonia requiring IV abx Diagnoses Sepsis A41.9 Osteomyelitis of left ankle M86.9 Community acquired pneumonia J18.9 Type 2 diabetes mellitus E11.9 Altered mental status R41.82
[2025-05-22] MEDS: magnesium sulfate premix 2 GM/50 ML PIGGYBACK IV (14:14)
[2025-05-22 17:25] LABS: RPR w(Moniotor) w/REFL Titer NON-REACTIVE (NON-REACTIVE)
[2025-05-22] MEDS: ATORVASTATIN 10 MG TABLET 20 MG PO (20:54)
[2025-05-23] VITALS (8 sets, daily range): BP systolic 108–145; BP diastolic 59–71; PULSE 80–93; RESP 14–21; TEMP 36.6–37; O2SAT 90–95
[2025-05-23] MEDS: cefTRIAXone 1,000 mg SDV 1000 MG IVP (01:56)
[2025-05-23 06:35] LABS: Hematocrit 37.5 % (37-53); Hemoglobin 12.20 g/dL (11.27-16.99); Mean Corpuscular HGB Conc 32.5 g/dL (30-55); Mean Corpuscular Hemoglobin 31.4 pg (27-33); Mean Corpuscular Volume 96.6 fl (82-101); Nucleated Red Blood Cells % 0 %; Platelet Count 142 10^3/cmm (157-399); Red Blood Count 3.88 10^6/uL (3.85-5.65); White Blood Count 6.76 10^3/uL (3.29-11.43)
[2025-05-23 06:44] LABS: Alanine Aminotransferase 9 U/L (0-41); Albumin Level 3.0 g/dL (3.5-5.2); Alkaline Phosphatase 93 U/L (40-130); Anion Gap 14.6 (5-19); Aspartate Amino Transferase 9 U/L (0-40); Blood Urea Nitrogen 9 mg/dL (8-23); Calcium 8.4 mg/dL (8.5-10.5); Carbon Dioxide 24 mmol/L (22-29); Chloride 102 mmol/L (98-107); Creatinine Clr Calc Pharmacy 91.5941; Globulin 3.3 g/dL (1.3-4.6); Glucose 159 mg/dL (65-115); Magnesium 2.0 mg/dL (1.7-2.3); Osmolality Calculated 286 mOsm/kg (285-295); Potassium 3.6 mmol/L (3.5-5.1); Sodium 137 mmol/L (136-145); Total Protein 6.3 g/dL (6.6-8.7)
--- NOTE | 2025-05-23 08:00 | XRR_ITS ---
PROCEDURE INFORMATION: Exam: XR Chest Exam date and time: 05/23/2025 5:59 AM Age: 70 years old Clinical indication: Other: F/u HTN; Additional info: Follow up TECHNIQUE: Imaging protocol: Radiologic exam of the chest. Views: 1 view. COMPARISON: CR (CHEST, ) 05/20/2025 10:01 PM FINDINGS: Lungs: Slightly enlarging left lower lobe pulmonary infiltrate. Biapical pleural and parenchymal fibrosis, right greater than left. Pleural spaces: Unremarkable. No pleural effusion. No pneumothorax. Heart/Mediastinum: Mild cardiomegaly. Bones/joints: Unremarkable. XR/XR chest 1V portable [id number] IMPRESSION: Slightly enlarging left lower lobe pneumonia.
--- NOTE | 2025-05-23 10:25 | PC.SOCIAL ---
IMM Updated Updated pt on IMM. No questions voiced. Provided pt a copy. Initialed, dated, & timed a copy & placed in chart.
--- NOTE | 2025-05-23 16:22 | P.PN_ITS ---
Subjective 2 Subjective: Patient is feeling better. awaiting pt/ot Vitals/I&O/Wt Last Vital Signs Temp 98.3 F 05/23/25 11:52 Pulse 92 05/23/25 11:52 Resp 15 05/23/25 11:52 BP 118/68 05/23/25 11:52 Pulse Ox 91 05/23/25 11:52 O2 Del Method Room Air 05/23/25 11:52 O2 Flow Rate 2 05/20/25 22:02 05/23/25 05/23/25 05/23/25 06:59 14:59 22:59 Intake Total 250 / 1550 1730 / 1730 Balance 250 / -650 1730 / 1730 Weight last 48 hrs Weight 77.564 kg Weight 77.5 kg Physical Exam 2 Narrative: General: No acute distress, AO x3, HEENT: PERRLA, pupils bilaterally equal and reactive, pallors not present Chest: Normal vesicular breath sounds, no added sounds, equal good air entry bilaterally CVS: S1-S2 regular, no murmurs, Abdomen: Soft, nontender, bowel sounds present Neuro: No focal deficits, no facial deformity, AO x3, Extremities: No edema bilateral lower extremities. Urinary Catheter Management: Tee: Cath Placed During This Visit: yes Reason for Continuing Indwelling Catheter: Other Urinary Catheter Date of Insertion: 05/21/25 Urinary Catheter Time of Insertion: 08:27 Data 05/23/25 06:19 05/23/25 06:19 Micro: Microbiology 05/21/25 09:13 Gram Stain - Final Sputum - Expectorated Sputum Sputum Culture - Final A&P Assessment and plan 1. Sepsis: 2. Osteomyelitis of left ankle: 3. Community acquired pneumonia: 4. Type 2 diabetes mellitus: 5. Altered mental status: Plan: 70-year-old male with history as described above, presenting to the hospital with 2 to 3 days of fever, generalized weakness, cough and pain over the left lower extremity. With leukocytosis, fever of 102 Fahrenheit, elevated lactate, elevated procalcitonin, qSOFA score of 3, concern for sepsis. Normal capillary refill at this time. Source of sepsis appears to be pneumonia seen in the left lower lobe on chest x- ray versus osteomyelitis of the left ankle. Blood culture taken in the emergency room Will additionally order for sputum culture, MRSA nasal screen. Patient received empiric antibiotics cefepime vancomycin and doxycycline in the emergency room. Will continue with ceftriaxone 1 g IV every 24 hours, azithromycin 500 mg p.o. daily for community-acquired pneumonia and additionally add vancomycin for the osteomyelitis. Maintenance IV fluids with normal saline at 75 cc an hour, he received septic bolus in the emergency room. Repeat lactate is improving normalized. Initiate Levophed to maintain MAP greater than 65 mmHg. Will consult podiatry for ankle osteomyelitis. On initial arrival patient was noted to be confused and lethargic and LP was considered, however once his fever improved and he was better hydrated, by the time he arrived to the ICU he was alert awake oriented and able to answer all questions. Suspect that his altered mentation upon initial arrival was related to metabolic encephalopathy from sepsis and fever. Lumbar puncture has been deferred given quick improvement in mental status. CT head has been ordered currently pending. Given recent history of peripheral intervention, will continue aspirin and Plavix for now. Low-dose insulin sliding scale for diabetes mellitus DVT prophylaxis: Lovenox 40 mg subcutaneously every 24 hours Full code 05/22/2025 Seen this morning. Vancomycin ceftriaxone and azithromycin to be continued. Patient is on room air saturating 90%. Recommendations from podiatry. Plan to follow-up with wound care outpatient. No acute intervention indicated at this time. Appreciate podiatry recommendation. Ordered 2 g IV magnesium. Continue IV antibiotics. Transfer to floor today. 05/23/2025 Plan for discharge in a.m. Will plan to discharge on Levaquin and linezolid for ankle ulcer. Follow-up with wound care. Patient has been recommended home health at discharge. [facility] recommended however family is not interested in that at this time. Continue dysphagia level 4 diet. Check speech therapy evaluation Home oxygen evaluation today. PDMP PDMP Reviewed: Not Reviewed Attestations 2 Medical Necessity Statement*: Plan for discharge in a.m. Coding Level of Care Code Acute Code for [facility] Fw Diagnoses Sepsis A41.9 Osteomyelitis of left ankle M86.9 Community acquired pneumonia J18.9 Type 2 diabetes mellitus E11.9 Altered mental status R41.82
[2025-05-23] MEDS: ATORVASTATIN 10 MG TABLET 20 MG PO (21:16)
[2025-05-24] VITALS: BP 85/49; PULSE 86; RESP 32; TEMP 37.1; O2SAT 91
[2025-05-24] MEDS: cefTRIAXone 1,000 mg SDV 1000 MG IVP (02:49)
[2025-05-24 04:00] VITALS: BP 137/65; PULSE 92; RESP 17; TEMP 36.9; O2SAT 93
[2025-05-24 07:37] VITALS: BP 95/62; PULSE 90; RESP 18; TEMP 37.7; O2SAT 94
--- NOTE | 2025-05-24 09:20 | PM.DCS ---
Discharge Providers Date of Admission: 05/21/25 02:08 Date of Discharge: May 24, 2025 Attending Provider at Admission: Corrina Espinosa MD Attending Provider at Discharge: Jovana Weaver MD Primary Care Provider: JUDITH Kamara Diagnoses at Discharge Discharge Diagnosis 1. Sepsis: 2. Osteomyelitis of left ankle: 3. Community acquired pneumonia: 4. Type 2 diabetes mellitus with foot ulcer, without long-term current use of insulin: 5. Altered mental status: Reason for Visit Reason for Visit: High Blood Pressure Hospital Course Hospital Course Admitted to the hospital for pneumonia and left ankle wound. Patient treated with IV antibiotics and transition to Levaquin elicited for ankle ulcer at discharge. Evaluated by podiatry during hospital stay. Recommend outpatient wound care. Low suspicion of osteomyelitis at this time. X-rays reviewed by podiatry. Patient did not qualify for home oxygen. For pneumonia aspect he is doing better. PT OT evaluated the patient and SNF was recommended however patient would like to go home. He will be sent home with home health. All questions answered. Outpatient follow-up recommended. Son at bedside. Physical Exam Narrative: General: No acute distress, AO x3, HEENT: PERRLA, pupils bilaterally equal and reactive, pallors not present Chest: Normal vesicular breath sounds, no added sounds, equal good air entry bilaterally CVS: S1-S2 regular, no murmurs, Abdomen: Soft, nontender, bowel sounds present Neuro: No focal deficits, no facial deformity, AO x3, Extremities: No edema bilateral lower extremities. Urinary Catheter Management: Tee: Cath Placed During This Visit: yes, but has since been removed by the nurse Reason for Continuing Indwelling Catheter: Other Urinary Catheter Date of Insertion: 05/21/25 Urinary Catheter Time of Insertion: 08:27 Date Urinary Catheter Removed: 05/23/25 Time Urinary Catheter Discontinued: 16:41 Discharge Data Studies Completed and Pending Completed Studies During Hospitalization Category Date Time Status CT head wo con* [id number] Routine Cat Scan 05/21/25 02:08 Completed XR ankle LT min 3V* [id number] Stat Exams 05/20/25 21:53 Completed XR chest 1V portable [id number] Routine Exams 05/23/25 08:00 Completed XR chest 1V portable [id number] Stat Exams 05/20/25 21:53 Completed Pending at discharge Category Date Time Status Blood Culture Stat Lab 05/20/25 22:28 Results Radiology Impressions Ankle X-Ray 05/20/25 21:53 IMPRESSION: Findings suspicious for osteomyelitis involving the distal lateral fibula, deep to a region of skin ulceration. Head CT 05/21/25 02:08 IMPRESSION: 1. No acute intracranial abnormality. 2. Old right MCA infarct. Chest X-Ray 05/23/25 08:00 IMPRESSION: Slightly enlarging left lower lobe pneumonia. Laboratory Results WBC 6.76 10^3/uL (3.29-11.43) 05/23/25 06:19 RBC 3.88 10^6/uL (3.85-5.65) 05/23/25 06:19 Hgb 12.20 g/dL (11.27-16.99) 05/23/25 06:19 Hct 37.5 % (37-53) 05/23/25 06:19 MCV 96.6 fl (82-101) 05/23/25 06:19 MCH 31.4 pg (27-33) 05/23/25 06:19 MCHC 32.5 g/dL (30-55) 05/23/25 06:19 RDW 12.9 % (12.1-15.1) 05/23/25 06:19 Plt Count 142 10^3/cmm (157-399) L 05/23/25 06:19 MPV 10.2 fL (7.4-10.4) 05/23/25 06:19 Neut % (Auto) 80.3 % 05/23/25 06:19 Lymph % (Auto) 6.8 % 05/23/25 06:19 [place] % (Auto) 9.3 % 05/23/25 06:19 Eos % (Auto) 2.8 % 05/23/25 06:19 Baso % (Auto) 0.4 % 05/23/25 06:19 Neut # (Auto) 5.42 10^3/uL (1.8-7.7) 05/23/25 06:19 Lymph # (Auto) 0.5 10^3/uL (0.8-4.8) L 05/23/25 06:19 [place] # (Auto) 0.6 10^3/uL (0.2-0.9) 05/23/25 06:19 Eos # (Auto) 0.2 10^3/uL (0.0-0.8) 05/23/25 06:19 Baso # (Auto) 0.0 10^3/uL (0.0-0.1) 05/23/25 06:19 Nucleated RBC % (auto) 0 % 05/23/25 06:19 Nucleated RBCs # 0.0 /100WBC 05/23/25 06:19 Specimen Type Arterial 05/20/25 23:23 Sample Site Brachial, right 05/20/25 23:23 ABG pH 7.41 (7.35-7.45) 05/20/25 23:23 ABG pCO2 36.3 mmHg (35-45) 05/20/25 23:23 ABG pO2 78.5 mmHg (80.0-100.0) L 05/20/25 23:23 ABG PO2/FiO2 Ratio 280 05/20/25 23:23 ABG HCO3 23.1 mmol/L (22-26) 05/20/25 23:23 ABG O2 Saturation 96.1 05/20/25 23:23 ABG Base Excess -1.1 mmol/L (-2.0-2.0) 05/20/25 23:23 Aaron Test Pos 05/20/25 23:23 A-a O2 Gradient 9.8 mmHg (5-10) 05/20/25 23:23 Hematocrit 38.4 % (42-52) L 05/20/25 23:23 Hgb O2 Saturation 94.3 % (95-100) L 05/20/25 23:23 Carboxyhemoglobin 1.4 %THgb (0.4-20.1) 05/20/25 23:23 Methemoglobin 0.4 % (0.4-1.5) 05/20/25 23:23 Total Hemoglobin 12.5 g/dL (14-18) L 05/20/25 23:23 Sodium 135.0 mmol/L (131-143) 05/20/25 23:23 Potassium 3.5 mmol/L (3.5-5.0) 05/20/25 23:23 Glucose 195.0 mg/dL (70-115) H 05/20/25 23:23 Ionized Calcium 1.2 mmol/L (1.1-1.4) 05/20/25 23:23 O2 Delivery Device Nc 05/20/25 23:23 O2 Liters/Min 2.0 % 05/20/25 23:23 FiO2 28.0 % 05/20/25 23:23 Lead Refinery Supervisor ID [email or web address] 05/20/25 23:23 Sodium 137 mmol/L (136-145) 05/23/25 06:19 Potassium 3.6 mmol/L (3.5-5.1) 05/23/25 06:19 Chloride 102 mmol/L (98-107) 05/23/25 06:19 Carbon Dioxide 24 mmol/L (22-29) 05/23/25 06:19 Anion Gap 14.6 (5-19) 05/23/25 06:19 BUN 9 mg/dL (8-23) 05/23/25 06:19 Creatinine 0.5 mg/dL (0.7-1.2) L 05/23/25 06:19 GFR Calculation Not Reportable 05/23/25 06:19 Glucose 159 mg/dL (65-115) H 05/23/25 06:19 POC Glucose 334 mg/dL (70-110) H 05/24/25 06:11 Calculated Osmolality 286 mOsm/kg (285-295) 05/23/25 06:19 Lactic Acid 2.4 mmol/L (0.5-2.2) H 05/20/25 21:55 Lactic Acid (Sepsis) 1.3 mmol/L (0.5-2.2) 05/21/25 01:07 Calcium 8.4 mg/dL (8.5-10.5) L 05/23/25 06:19 Phosphorus 2.4 mg/dL (2.5-4.5) L 05/20/25 21:55 Magnesium 2.0 mg/dL (1.7-2.3) 05/23/25 06:19 Total Bilirubin 0.5 mg/dL (0.15-1.2) 05/23/25 06:19 AST 9 U/L (0-40) 05/23/25 06:19 ALT 9 U/L (0-41) 05/23/25 06:19 Alkaline Phosphatase 93 U/L (40-130) 05/23/25 06:19 Troponin T Baseline 28 ng/L (0-15) H 05/20/25 21:55 Troponin T 120 Minute 27.95 ng/L (0-15) H 05/20/25 23:56 Delta Troponin T -0.05 ABS# (0-10) L 05/20/25 23:56 Troponin T Hi Sens 6Hr 25.22 ng/L (0-15) H 05/21/25 04:14 Troponin T Hi Sens 6Hr Delta -2.78 ng/L (0-12) L 05/21/25 04:14 Total Protein 6.3 g/dL (6.6-8.7) L 05/23/25 06:19 Albumin 3.0 g/dL (3.5-5.2) L 05/23/25 06:19 Globulin 3.3 g/dL (1.3-4.6) 05/23/25 06:19 Procalcitonin 1.75 ng/mL (0-0.5) H 05/20/25 21:55 TSH 1.12 uIU/mL (0.27-4.20) 05/21/25 04:14 Urine Color Yellow (Yellow) 05/21/25 00:01 Urine Appearance Clear (CLEAR) 05/21/25 00:01 Urine pH 6.5 (5-7) 05/21/25 00:01 Ur Specific [place] 1.013 (1.005-1.030) 05/21/25 00:01 Urine Protein Trace (Negative) A 05/21/25 00:01 Urine Glucose (UA) 1+ (Normal) H 05/21/25 00:01 Urine Ketones Negative (Negative) 05/21/25 00:01 Urine Blood Negative (Negative) 05/21/25 00:01 Urine Nitrate Negative (Negative) 05/21/25 00:01 Urine Bilirubin Negative (Negative) 05/21/25 00:01 Urine Urobilinogen 1.0 mg/dL (Negative) 05/21/25 00:01 Ur Leukocyte Esterase Negative (Negative) 05/21/25 00:01 Urine RBC 0-2 /hpf (0-2) 05/21/25 00:01 Urine WBC 0-5 /hpf (0-5) 05/21/25 00:01 Ur Squamous Epith Cells 0-5 /hpf (0-5) 05/21/25 00:01 Amorphous Sediment Not Reportable 05/21/25 00:01 Urine Bacteria None seen /hpf (NONE) 05/21/25 00:01 Hyaline Casts 0-4 /lpf H 05/21/25 00:01 Nasal MRSA (PCR) Mrsa detected (Negative) A 05/21/25 09:13 Vancomycin Trough 8.1 ug/mL (10-15) L 05/22/25 21:45 RPR w/Rflx to Titer Non-reactive (NON-REACTIVE) 05/21/25 04:14 C. difficile (PCR) Negative (Negative) 05/22/25 09:30 Influenza A (PCR) Negative (Negative) 05/20/25 22:25 Influenza Type B (PCR) Negative (Negative) 05/20/25 22:25 RSV (PCR) Negative (Negative) 05/20/25 22:25 SARS-CoV-2 (PCR) Negative (Negative) 05/20/25 22:25 Vitals Last Vital Signs Temp 99.9 F H 05/24/25 07:37 Pulse 90 05/24/25 07:37 Resp 18 05/24/25 07:37 BP 95/62 05/24/25 07:37 Pulse Ox 94 05/24/25 07:37 O2 Del Method Room Air 05/24/25 07:37 O2 Flow Rate 2 05/20/25 22:02 Discharge Plan Discharge Patient Disposition: Home Health Service Condition: Stable Prescriptions: New pantoprazole 40 mg Tablet,Delayed Release (Dr/Ec) 40 mg PO DAILY Qty: 30 0RF levofloxacin 750 mg tablet 750 mg PO DAILY 7 Days Qty: 7 0RF linezolid 600 mg tablet 600 mg PO BID Qty: 7 0RF Continued hydrocodone-acetaminophen 10-325 mg tablet 1 tab PO Q8H PRN (Reason: Pain) clopidogrel 75 mg tablet 75 mg PO DAILY Qty: 90 2RF atorvastatin 20 mg tablet 20 mg PO QPM Qty: 90 1RF Trulicity 3 mg/0.5 mL pen injector 3 mg SUBCUT ONCE 30 Days Qty: 15 1RF (DME) lancets Misc See Rx Instructions .Route Qty: 200 2RF Rx Instructions: USE TO CHECK BLOOD SUGAR DAILY. (DME) blood sugar diagnostic Strip See Rx Instructions .Route Qty: 100 2RF Rx Instructions: USE TO CHECK BLOOD SUGAR DAILY. memantine 10 mg tablet 10 mg PO DAILY 30 Days Qty: 30 2RF tizanidine 4 mg tablet 4 mg PO BEDTIME PRN (Reason: Muscle Spasticity) Rx Instructions: TAKE 1 TABLET BY MOUTH ONCE EVERY NIGHT AT BEDTIME Needed FOR MUSCLE spasticity gabapentin 400 mg capsule 400 mg PO BID Rx Instructions: TAKE 1 CAPSULE BY MOUTH EVERY 12 HOURS FOR 28 DAYS aspirin 81 mg Tablet,Delayed Release (Dr/Ec) 81 mg PO DAILY Qty: 90 0RF metformin 1,000 mg tablet 1,000 mg PO BID Discharge Order = DC NOW: Discharge Order (Routine); Ordered 05/24/25 Ordered By: Jovana Weaver Referrals: Joanne Moise FNP [Nurse Practitioner, Wound Care] - 05/25/25 10:30 am Referral Note: you also have another appointment for 06/01 @ 10:30am ABNER Carson FNP [Primary Care Provider, Family Practice] - 1-3 days Referral Note: We have notified your physician's clinic of the need for a follow-up appointment to be scheduled. If you have not heard from them within the next 2 business days, please call them directly. Jh White DPM [Physician, Podiatry] - 06/07/25 10:00 am Referral Note: Discharge Diet: As Directed Discharge Activity: As per PT/OT instructions Patient Instructions: Levofloxacin (By mouth), Pantoprazole (By mouth), Linezolid (By mouth), Pneumonia (GEN), Opioid Safety, Patient Portal & Rush Instructions Activity Restrictions/Additional Instructions: Podiatry recommendations: Weight bearing: As tolerated from podiatry standpoint -Dressings: Daily Allevyn pad to left lateral malleolus wound Follow up with wound care and podiatry in clinic Speech Recommendations: Mildly thick liquids Soft bite sized food Discharge Attestations Time Spent in Discharge Care*: less than 30 min Quality Metrics Clinical Quality Measures [ No reported AMI, CVA or VTE this stay] Coding Level of Care Code Acute Code for [facility] Fwd Diagnoses Sepsis A41.9; R65.21; G93.41 Sepsis acute organ dysfunction status: with acute organ dysfunction Sepsis type: sepsis due to unspecified organism Severe sepsis acute organ dysfunction type: encephalopathy Severe sepsis shock status: with septic shock Osteomyelitis of left ankle M86.9 Community acquired pneumonia J18.9 Type 2 diabetes mellitus with foot ulcer, without long-term current use of insulin E11.621; L97.509 Diabetes mellitus complication detail: with foot ulcer Diabetes mellitus complication status: with skin complications Diabetes mellitus bed bug exterminator insulin use: without care home use Altered mental status R41.82
[2025-05-24 11:41] VITALS: BP 123/64; PULSE 76; RESP 18; TEMP 36.9; O2SAT 98
[2025-05-24 12:18] VITALS: BP 123/64; PULSE 76; RESP 18; TEMP 36.9; O2SAT 98
== END 2025-05-24 12:05 | disposition home health service (06) | DRG 871 ==
LOC: ER 05-21 00:47 → ICU 05-21 01:36 → MEDSURG 05-23 02:40
PROVIDERS: Admitting Provider Student in an Organized Health Care Education/Training Program; Emergency Provider Physician Assistant; PCP Nurse Practitioner Family; Visit Provider Internal Medicine
DX: A41.9 Sepsis, unspecified organism (principal); G93.41 Metabolic encephalopathy; J18.9 Pneumonia, unspecified organism; R65.21 Severe sepsis with septic shock; J44.0 Chronic obstructive pulmonary disease with (acute) lower respiratory infection; E87.20 Acidosis, unspecified; E11.621 Type 2 diabetes mellitus with foot ulcer; L97.522 Non-pressure chronic ulcer of other part of left foot with fat layer exposed; E11.51 Type 2 diabetes mellitus with diabetic peripheral angiopathy without gangrene; E11.42 Type 2 diabetes mellitus with diabetic polyneuropathy; E78.2 Mixed hyperlipidemia; F17.210 Nicotine dependence, cigarettes, uncomplicated; B35.1 Tinea unguium; I10 Essential (primary) hypertension; Z22.322 Carrier or suspected carrier of Methicillin resistant Staphylococcus aureus; E86.0 Dehydration; Z96.642 Presence of left artificial hip joint; Z96.652 Presence of left artificial knee joint; Z95.820 Peripheral vascular angioplasty status with implants and grafts; Z79.891 Long term (current) use of opiate analgesic; Z79.02 Long term (current) use of antithrombotics/antiplatelets; Z79.85 Long-term (current) use of injectable non-insulin antidiabetic drugs; Z79.82 Long term (current) use of aspirin; Z79.84 Long term (current) use of oral hypoglycemic drugs; Z86.73 Personal history of transient ischemic attack (TIA), and cerebral infarction without residual deficits; I35.0 Nonrheumatic aortic (valve) stenosis; G89.29 Other chronic pain; M54.50 Low back pain, unspecified
CPT/HCPCS: 36415; 36416; 36600; 51702; 70450; 71045; 73610; 80051; 80053; 80202; 81001; 82330; 82805; 82962; 83605; 83735; 84100; 84145; 84443; 84484; 85025; 86592; 87040; 87070; 87205; 87493; 87637; 92523; 92610; 93005; 94760; 96365; 96367; 96372; 96375; 97110; 97116; 97162; 97167; 97530; 97535; 97597; 99285; J0692; J0696; J1650; J1815; J3373; J3475; J3490; J7030; J7050; J9999; Q0144

== ENCOUNTER → 2025-05-25 10:06 | Outpatient (BNVA) | payer MEDICARE, MEDICAID, SELFPAY | PROVIDERS: PCP Nurse Practitioner Family; Visit Provider Thoracic Surgery (Cardiothoracic Vascular Surgery) | DX: E11.52 Type 2 diabetes mellitus with diabetic peripheral angiopathy with gangrene (principal); E11.622 Type 2 diabetes mellitus with other skin ulcer; L97.321 Non-pressure chronic ulcer of left ankle limited to breakdown of skin | CPT/HCPCS: 97597 ==

== ENCOUNTER 2025-05-29 12:24 | Emergency (ER) | payer MEDICARE, MEDICAID, SELFPAY ==
--- OUTSIDE RECORDS SUMMARY | 2025-01-11 02:30 | XMS_ITS ---
Author Organization [facility] Address [address] [place], [place] [id number] Care Team Providers Care Consumer Insight Analyst Name Role Phone Aishwarya Gonzalez Primary Care Provider Unavailab Martin KIRKPATRICK, Tyrone Unavailable [phone] Gross PEANUT SEPARATOR, ABNER Unavailable Unavailable Allergies No Known Allergies REASON FOR VISIT Patient states he is here for pain., Prescription visit, FALL Medications Medication SIG (Take, Route, Frequency, Duration) Notes Start Date End Date Status gabapentin 400 mg 1 cap orally Q12H Active acetaminophen-hydrocodone 325 mg-10 mg 1 tab orally Q4-6H prn pain (max 3/day; hold within 4H of planned sleep) Active acetaminophen-hydrocodone 325 mg-10 mg 1 tab orally Q4-6H prn pain (max 3/day; hold within 4H of planned sleep) Active clopidogrel 75 mg 1 tab(s) orally once a day for 30 day(s) Active atorvastatin 20 mg 1 tab orally once a day Active Trulicity Pen 1.5 mg/0.5 mL INJECT 1.5mg SUB-Q ONCE A WEEK for 30 Active tamsulosin 0.4 mg 1 cap orally once a day Active metFORMIN 1000 mg 1 tab orally 2 times a day Active Social History Tobacco Use: Social History Observation Description Date Details (start date - stop date) Current Smoker NA - NA Tobacco use: Question Answer Notes : current smoker Are you interested in quitting? Thinking about q uitting How many cigarettes a day do you smoke? 11-20 How often do you smoke cigarettes? every day How soon after you wake up d o you smoke your first cigarette? 6-30 min When did you start smoking? 1978 AUDIT-C (Standard) Question Answer Notes Did you have a drink containing alcohol in the p ast year? No Points 0 Interpretation Negative Encounters Encounter Location Date Provider Diagnosis [facility] [address] [place], [place] [id number] 01/11/2025 Tyrone Burks Vertebrogenic low ba ck pain M54.51 ; Other chronic pain G89.29 ; Spinal stenosis, lumbar region with neurogenic claudication M48.062 and Hypersomnia, unspecified G47.10 Assessments Encounter Date Diagnosis (ICD Code) Assessment Notes Treatment Notes Treatment Clinical Notes Section Notes 01/11/2025 Vertebrogenic low back pain (ICD-10 - M54.51) Chronic axial lumbosacral spine pain. 01/11/2025 Other chronic pain (ICD-10 - G89.29) Patient reports that taking his pain medication allows him to complete light chores. Plan to continue oral opioid medication management. 01/11/2025 Spinal stenosis, lumbar region with neurogenic claudication (ICD-10 - M48.062) Patient reports some benefit with use of gabapentin for his lower extremity symptoms. Plan to continue. 01/11/2025 Hypersomnia, unspecified (ICD-10 - G47.10) Plan to continue to restrict opioid use in relation to sleep for safety concerns. 01/11/2025 Other The service was provided by JUDITH Gibbons, as part of the ongoing care plan established by Tyrone Burks MD, who was present in the office for direct supervision during the encounter. Plan Of Treatment Medication Medication Name Sig Start Date Stop Date Notes gabapentin 400 mg 1 cap orally Q12H acetaminophen-hydrocodone 32 5 mg-10 mg 1 tab orally Q4-6H prn pain (max 3/day; hold within 4H of planned sleep) acetaminophen-hydrocodone 32 5 mg-10 mg 1 tab orally Q4-6H prn pain (max 3/day; hold within 4H of planned sleep) Treatment Notes Assessment Notes Vertebrogenic low back pain Chronic axia l lumbosacral spine pain. Other chronic pain Patient reports that taking his pain medication allows him to complete light chores. Plan to continue oral opioid medication management. Spinal stenosis, lumbar lawrence on with neurogenic claudication Patient reports some benefit with use of gabapentin for his lower extremity symptoms. Plan to continue. Hypersomnia, unspecified Plan to continu e to restrict opioid use in relation to sleep for safety concerns. Other The service was prov ided by JUDITH Gibbons, as part of the ongoing care plan established by Tyrone Burks MD, who was present in the office for direct supervision during the encounter. Progress Notes * Mariaelena TREVIÑO LDOB: [birth year] (70 yo M)Acc No.[id number]:01/11/2025 Patient: Mariaelena PHAN Provider: Cesar Burks :1955 A ge:70 Y S ex:Male Date:01/11/2025 Address:[place] [address] [id number] Pcp:JUDITH Gamboa Subjective: * Chief Complaints: * 1 . Patient states he is here for pain.. 2. Prescription visit. 3. FALL. * HPI: L umbar Spine: 70 year old male presents with c/o pain f or c hronic duration i n the bilateral lower back. This pain is described as constant aching with an intermittent burning sensation. This pain extends into the left hip and LLE. The back pain is aggravated by cold weather, by driving and bending over. This pain is somewhat alleviated with use of a topical agent, with rest from activity, and by sitting in his easy chair. c /o tingling/numbness i n the left foot. c /o weakness i n the BLE (L>R) - history of left foot drop.? Denies : previous surgery:. injury: l ifting injury in his 30's. P revious Therapy: Previous therapy: i ce therapy with some benefit; topical agent therapy with some benefit; injection therapy - injection performed by Dr. Balderrama via [facility] pain clinic with history of no benefit; medication management / opioid therapy by Dr. Balderrama via [facility] pain clinic with history of b enefit. Medication history: N eurontin 400 mg; Holman 10/325; Zanaflex 4 mg; OTC Blue Emu and Active Ice topical applications. M edications: Neurontin (gabapentin) 4 00 mg, 1 cap, orally, Q12H, 28 days, 56, Refills 1(last prescribed 11/22/24). Patient reports * benefit with quantity * and * refills.Last fill date: *. Holman (hydrocodone / acetaminophen) 3 25 mg-10 mg, 1 tab, orally, Q4-6H prn pain (max 3/day; hold within 4H of planned sleep), 28 days, 84, Refills 0.Notes: Prescriptions given (2) on 11/22/24. Patient reports * benefit, as evidenced by improved ability to *, with quantity * and * prescription(s) remaining.Last fill date: *. N on Compliance/Failure to Follow Treatment Agreement: Future violations WILL result in dissolution of treatment: ?as documented on 01/11/24. Abnormal chromatography / mass spectrometry results: o n 11/16/23 (negative hydrocodone - counselled). * Medical History: C hronic pain, Low back pain, Lumbar spondylosis, disc disease, spinal stenosis and spondylolisthesis, Sacroiliitis, Diabetes mellitus type II, Diabetic foot, Hypertension, Toenail deformity, Vitamin D deficiency, Poor mobility, Foot drop, left, Smoker unmotivated to quit as per extenal chart review, Tobacco use, possible COPD, CVA, Depression, Left foot ulcer, history of wound care clinic treatment, Sleep disorder with hypersomnia and snoring (patient declined prior offer for a sleep study and possible treatment). * Surgical History: C ataract surgery, right , Pin placement, left great toe , Knee replacement, left, performed at [facility] by Dr. Padron, 2019, Angioplasty with placement of stent, left leg, performed at [facility] by Dr. Contreras, 06/2024. * Hospitalization/Major Diagno stic Procedure: Camelia segura, treated at [facility] in [place], [place], 2007. * Medications: T aking acetaminophen-hydrocodone 325 mg-10 mg tablet 1 tab orally Q4-6H prn pain (max 3/day; hold within 4H of planned sleep) , Taking atorvastatin 20 mg tablet 1 tab orally once a day , Taking clopidogrel 75 mg tablet 1 tab(s) orally once a day , Taking gabapentin 400 mg capsule 1 cap orally Q12H , Taking metFORMIN 1000 mg tablet 1 tab orally 2 times a day , Taking tamsulosin 0.4 mg capsule 1 cap orally once a day , Taking Trulicity Pen(dulaglutide) 1.5 mg/0.5 mL solution INJECT 1.5mg SUB-Q ONCE A WEEK * Allergies: N .K.D.A. Objective: Therapeutic Interventions: Assessment: * Assessment: 1. V ertebrogenic low back pain - M54.51 (Primary) 2 . O ther chronic pain - G89.29 3 . S guille stenosis, lumbar region with neurogenic claudication - M48.062 4 . H ypersomnia, unspecified - G47.10 Plan: * Treatment: 2. O ther chronic pain Notes: Patient reports that taking his pain medication allows him to complete light chores. Plan to continue oral opioid medication management. 3. S guille stenosis, lumbar region with neurogenic claudication Notes: Patient reports some benefit with use of gabapentin for his lower extremity symptoms. Plan to continue. 4. H ypersomnia, unspecified Notes: Plan to continue to restrict opioid use in relation to sleep for safety concerns. 5. O thers Continue acetaminophen-hydrocodone tablet, 325 mg-10 mg, 1 tab, orally, Q4-6H prn pain (max 3/day; hold within 4H of planned sleep), Refills 0; C ontinue acetaminophen-hydrocodone tablet, 325 mg-10 mg, 1 tab, orally, Q4-6H prn pain (max 3/day; hold within 4H of planned sleep), Refills 0; C ontinue gabapentin capsule, 400 mg, 1 cap, orally, Q12H. Notes: The service was provided by JUDITH Gibbons, as part of the ongoing care plan established by Tyrone Burks MD, who was present in the office for direct supervision during the encounter.? * Preventive Medicine: Counseling: P ain Management: Follow-up Plan documented: Y es Pain Screenin C ommunication to patient: Counseled the Patient on smoking cessation, education provided 0 11/22/2024 Screening / Special Tests: F all Risk Screening: O ne fall without injury in the past year as of: 11/22/2024 (most recent 02/2024) * Images: * Electronic signature of Pavan Burks MD on 05/29/2025 at 12:28 PM CDT Sign off status: Pending * Provider: Cesar Burks Date: 0 01/11/2025 Generated for Concha sarmiento/Adelaide/eTreina on: 0 05/29/2025 12:28 PM CDT History and Physical Notes * HPI (History of Present Illness) Category Sub-Category Detail Notes Category Not es Lumbar Spine injury: lifting injury in his 30's tingling/numbness in the left foot pain in the bilateral low er back. This pain is described as constant aching with an intermittent burning sensation. This pain extends into the left hip and LLE. The back pain is aggravated by cold weather, by driving and bending over. This pain is somewhat alleviated with use of a topical agent, with rest from activity, and by sitting in his easy chair previous surgery: weakness in the BLE (L>R) - h istory of left foot drop Medications Neurontin (gabapentin) 400 mg, 1 cap, orally, Q12H, 28 days, 56, Refills 1 (last prescribed 11/22/24). Patient reports * benefit with quantity * and * refills. Last fill date: * Holman (hydrocodone / acetaminophen) 325 mg-10 mg, 1 tab, orally, Q4-6H prn pain (max 3/day; hold within 4H of planned sleep), 28 days, 84, Refills 0. Notes: Prescriptions given (2) on 11/22/24. Patient reports * benefit, as evidenced by improved ability to *, with quantity * and * prescription(s) remaining. Last fill date: * Previous Therapy Previous therapy: ice therapy w ith some benefit; topical agent therapy with some benefit; injection therapy - injection performed by Dr. Balderrama via [facility] pain clinic with history of no benefit; medication management / opioid therapy by Dr. Balderrama via [facility] pain clinic with history of benefit Medication history: Neurontin 400 mg; No rco 10/325; Zanaflex 4 mg; OTC Blue Emu and Active Ice topical applications Non Compliance/Failure to Fo llow Treatment Agreement Abnormal chromatography / mass spectrometry results: on 11/16/23 (negative hydrocodone - counselled) Future violations WILL result in dissolu tion of treatment: as documented on 01/11/24 Physical Examination Category Sub-Category Detail Notes Section Note s ENT Hearing: grossly intact Chest Shape and expansion: normal expa nsion, equal bilaterally, respirations even and unlabored Neurological Psychiatric: alert and conversant Musculoskeletal Gait: unsteady, favori ng left side, use of cane for ambulation assistance Outcome Assessment: Findings:: Negative, care pl an not required Dermatology Skin inspection: pink, warm, dry, and int act General General appearence: well groomed, well no urished Build: average Head: normocephalic Eyes Conjunctiva: without injection
--- OUTSIDE RECORDS SUMMARY | 2025-05-29 12:27 | XMS_ITS | Encounter Summary ---
Author Organization [facility] Address [address] [place] [address] Care Team Providers Care Nautical Instrument Mechanic Name Role Phone Jaylene Mccoy DO Primary Care Provider [phone] Encounter Details Date Type Department Care Team (Latest Contact Info) Description 08/01/2002 Outpatient Historical [facility] Family Medicine- [place] [address] [place] [address] Jefferson Bhakta DO NO ADDRESS ON FILE ACUTE BRONCHITIS (Primary Dx); CHEST PAIN NOS Social History Tobacco Use Types Packs/Day Years Used Date Smoking Tobacco: Never Assessed Sex and Gender Information Value Date Recorded Sex Assigned at Not on file 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
--- OUTSIDE RECORDS SUMMARY | 2025-05-29 12:27 | XMS_ITS | Encounter Summary ---
Author Organization [facility] Address [address] [place] [address] Care Team Providers Care Inspector Finishing Name Role Phone Jaylene Mccoy DO Primary Care Provider [phone] Encounter Details Date Type Department Care Team (Latest Contact Info) Description 12/04/1998 Outpatient Historical [facility] Family Medicine [address] [phone] Jefferson Bhakta DO NO ADDRESS ON FILE Other joint derangement, not elsewhere classified, lower leg (Primary Dx) Social History Tobacco Use Types Packs/Day Years Used Date Smoking Tobacco: Never Assessed Sex and Gender Information Value Date Recorded Sex Assigned at Not on file 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
--- OUTSIDE RECORDS SUMMARY | 2025-05-29 12:28 | XMS_ITS | Encounter Summary ---
Author Organization [facility] Address [address] [place] [address] Care Team Providers Care Assistant Field Hockey Coach Name Role Phone Jaylene Mccoy DO Primary Care Provider [phone] Encounter Details Date Type Department Care Team (Late st Contact Info) Description 06/07/2015 Ancillary Orders [facility] Admitting [address] [place] [id number] Yo Hunt, DPMra [address] [place] [address] Hammer toe (Primary Dx) Social History Tobacco Use Types Packs/Day Years Used Date Smoking Tobacco: Every Day Cigarettes Alcohol Use Standard Drinks/Week Comments Yes 0 (1 standard drink = 0.6 oz pur e alcohol) rarely Sex and Gender Information Value Date Recorded Sex Assigned at Not on file 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
--- OUTSIDE RECORDS SUMMARY | 2025-05-29 12:28 | XMS_ITS | Encounter Summary ---
Author Organization [facility] Address [address] [place] [address] Care Team Providers Care Garde Manger Name Role Phone Jaylene Mccoy DO Primary Care Provider [phone] Encounter Details Date Type Department Care Team (Late st Contact Info) Description 12/30/2007 Outpatient Historical [facility] Medicine [place] [address] [place] [phone] Jefferson Bhakta DO NO ADDRESS ON FILE Social History Tobacco Use Types Packs/Day Years Used Date Smoking Tobacco: Never Assessed Sex and Gender Information Value Date Recorded Sex Assigned at Not on file Legal Sex Male 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 SOCIAL HISTORY: . Worked in the [employer] prior to illness. OBJECTIVE: GENERAL: The patient [...] basis or two months. Jefferson Bhakta D.O. [facility] Electronically Signed by Jefferson Bhakta D.O. 01/02/2008 13:49 , P, tammi , Document #: [id number] cc: T SPRAY TENDER documented in this encounter Plan of Treatment Not on file documented as of this encounter Visit Diagnoses Not on filedocumented in this encounter Care Teams Garde Manger Relationship Specialty Start Date End Date Jaylene Mccoy DO PCP - General Family Practice 02/08/15 documented as of this encounter
--- OUTSIDE RECORDS SUMMARY | 2025-05-29 12:28 | XMS_ITS | Encounter Summary ---
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 Gender Identity Not on file Sexual Orientation Not on file documented as of this encounter Plan of Treatment Not on file documented as of this encounter Procedures Procedure Name Priority Date/Time Associated Diagnosis Comments POC GLUCOSE Routine 11/29/2007 4:50 PM HAND SHAPER POC GLUCOSE Routine 11/29/2007 11:14 AM HAND SHAPER POC GLUCOSE Routine 11/29/2007 7:12 AM HAND SHAPER POC GLUCOSE Routine 11/28/2007 11:08 PM HAND SHAPER POC GLUCOSE Routine 11/28/2007 5:04 PM HAND SHAPER POC GLUCOSE Routine 11/28/2007 4:38 PM HAND SHAPER POC GLUCOSE Routine 11/28/2007 10:48 AM HAND SHAPER POC GLUCOSE Routine 11/28/2007 6:57 AM HAND SHAPER POC GLUCOSE Routine 11/28/2007 5:21 AM HAND SHAPER POC GLUCOSE Routine 11/27/2007 11:48 PM HAND SHAPER POC GLUCOSE Routine 11/27/2007 5:25 PM HAND SHAPER POC GLUCOSE Routine 11/27/2007 11:52 AM HAND SHAPER BASIC METABOLIC PANEL Routine 11/27/2007 6:10 AM HAND SHAPER POC GLUCOSE Routine 11/27/2007 5:53 AM HAND SHAPER CARDIAC ENZYMES Routine 11/27/2007 12:32 AM HAND SHAPER POC GLUCOSE Routine 11/26/2007 11:38 PM HAND SHAPER CARDIAC ENZYMES Routine 11/26/2007 6:40 PM HAND SHAPER POC GLUCOSE Routine 11/26/2007 5:04 PM HAND SHAPER POC GLUCOSE Routine 11/26/2007 3:51 PM HAND SHAPER CARDIAC ENZYMES Routine 11/26/2007 12:47 PM HAND SHAPER POC GLUCOSE Routine 11/26/2007 12:19 PM HAND SHAPER POC GLUCOSE Routine 11/26/2007 8:57 AM HAND SHAPER POC GLUCOSE Routine 11/26/2007 4:58 AM HAND SHAPER POC GLUCOSE Routine 11/25/2007 11:20 PM HAND SHAPER POC GLUCOSE Routine 11/25/2007 7:02 PM HAND SHAPER POC GLUCOSE Routine 11/25/2007 4:34 PM HAND SHAPER POC GLUCOSE Routine 11/25/2007 12:02 PM HAND SHAPER GLUCOSE URINALYSIS, QUALITATIVE Routine 11/25/2007 6:23 AM HAND SHAPER KETONE, QUALITATIVE, URINE Routine 11/25/2007 6:23 AM HAND SHAPER URINALYSIS W/REFLEX MICROSCOPIC Routine 11/25/2007 6:23 AM HAND SHAPER TSH Routine 11/25/2007 6:12 AM HAND SHAPER HOMOCYSTEINE Routine 11/25/2007 6:12 AM HAND SHAPER HEMOGLOBIN A1C Routine 11/25/2007 6:12 AM HAND SHAPER LIPID PANEL Routine 11/25/2007 6:12 AM HAND SHAPER COMPREHENSIVE METABOLIC PANEL Routine 11/25/2007 6:12 AM HAND SHAPER POC GLUCOSE Routine 11/25/2007 2:17 AM HAND SHAPER POC GLUCOSE Routine 11/24/2007 11:14 PM HAND SHAPER PT AND APTT Routine 11/24/2007 7:35 PM HAND SHAPER CBC WITH DIFFERENTIAL Routine 11/24/2007 7:35 PM HAND SHAPER POC ELECTROLYTES/BMP Routine 11/24/2007 7:25 PM HAND SHAPER POC CREATININE Routine 11/24/2007 7:25 PM HAND SHAPER documented in this encounter Results * (ABNORMAL) POC GLUCOSE (11/29/2007 4:50 PM HAND SHAPER) GLUCOSE POC 157(H) 60 - 100 mg/dL INTERFACE SYSTEM 11/29/2007 4:50 PM HAND SHAPER Result Latasha Brennan MD POINT OF CARE TESTING Edited Performing Organization Address City/[facility] Co de Phone Number INTERFACE SYSTEM Refer to clinic/hospital department * (ABNORMAL) POC GLUCOSE (11/29/2007 11:14 AM HAND SHAPER) GLUCOSE POC 122(H) 60 - 100 mg/dL INTERFACE SYSTEM 11/29/2007 11:1 4 AM HAND SHAPER Result Latasha Brennan MD POINT OF CARE TESTING Edited Performing Organization Address City/[facility] Co de Phone Number INTERFACE SYSTEM Refer to clinic/hospital department * (ABNORMAL) POC GLUCOSE (11/29/2007 7:12 AM HAND SHAPER) GLUCOSE POC 146(H) 60 - 100 mg/dL INTERFACE SYSTEM 11/29/2007 7:12 AM HAND SHAPER Result Latasha rBennan MD POINT OF CARE TESTING Edited Performing Organization Address [facility] Co de Phone Number INTERFACE SYSTEM Refer to clinic/hospital department * (ABNORMAL) POC GLUCOSE (11/28/2007 11:08 PM HAND SHAPER) GLUCOSE POC 127(H) 60 - 100 mg/dL INTERFACE SYSTEM 11/28/2007 11:0 8 PM HAND SHAPER Result Latasha Brennan MD POINT OF CARE TESTING Edited Performing Organization Address [facility] Co de Phone Number INTERFACE SYSTEM Refer to clinic/hospital department * (ABNORMAL) POC GLUCOSE (11/28/2007 5:04 PM HAND SHAPER) GLUCOSE POC 121(H) 60 - 100 mg/dL INTERFACE SYSTEM 11/28/2007 5:04 PM HAND SHAPER Result Latasha Brennan MD POINT OF CARE TESTING Edited Performing Organization Address City/[facility] Co de Phone Number INTERFACE SYSTEM Refer to clinic/hospital department * (ABNORMAL) POC GLUCOSE (11/28/2007 4:38 PM HAND SHAPER) GLUCOSE POC 106(H) 60 - 100 mg/dL INTERFACE SYSTEM 11/28/2007 4:38 PM HAND SHAPER Result Latasha Brennan MD POINT OF CARE TESTING Edited INTERFACE SYSTEM Refer to clinic/hospital department * (ABNORMAL) POC GLUCOSE (11/28/2007 10:48 AM HAND SHAPER) GLUCOSE POC 113(H) 60 - 100 mg/dL INTERFACE SYSTEM 11/28/2007 10:4 8 AM HAND SHAPER Result Latasha Brennan MD POINT OF CARE TESTING Edited Performing Organization Address [facility] Co de Phone Number INTERFACE SYSTEM Refer to clinic/hospital department * (ABNORMAL) POC GLUCOSE (11/28/2007 6:57 AM HAND SHAPER) GLUCOSE POC 115(H) 60 - 100 mg/dL INTERFACE SYSTEM 11/28/2007 6:57 AM HAND SHAPER Result Latasha Brennan MD POINT OF CARE TESTING Edited Performing Organization Address [facility] de Phone Number INTERFACE SYSTEM Refer to clinic/hospital department * (ABNORMAL) POC GLUCOSE (11/28/2007 5:21 AM HAND SHAPER) GLUCOSE POC 106(H) 60 - 100 mg/dL INTERFACE SYSTEM 11/28/2007 5:21 AM HAND SHAPER Result Latasha Brennan MD POINT OF CARE TESTING Edited Performing Organization Address City/State/[facility] Co de Phone Number INTERFACE SYSTEM Refer to clinic/hospital department * (ABNORMAL) POC GLUCOSE (11/27/2007 11:48 PM HAND SHAPER) GLUCOSE POC 112(H) 60 - 100 mg/dL INTERFACE SYSTEM 11/27/2007 11:4 8 PM HAND SHAPER Result Latasha Brennan MD POINT OF CARE TESTING Edited Performing Organization Address [facility] de Phone Number INTERFACE SYSTEM Refer to clinic/hospital department * POC GLUCOSE (11/27/2007 5:25 PM HAND SHAPER) GLUCOSE POC 97 60 - 100 mg/dL INTERFACE SYSTEM 11/27/2007 5:25 PM HAND SHAPER Result Latasha Brennan MD POINT OF CARE TESTING Edited Performing Organization Address [facility] de Phone Number INTERFACE SYSTEM Refer to clinic/hospital department * POC GLUCOSE (11/27/2007 11:52 AM HAND SHAPER) GLUCOSE POC 98 60 - 100 mg/dL INTERFACE SYSTEM 11/27/2007 11:5 2 AM HAND SHAPER Result Latasha Brennan MD POINT OF CARE TESTING Edited Performing Organization Address [facility] Phone Number INTERFACE SYSTEM Refer to clinic/hospital department * (ABNORMAL) BASIC METABOLIC PANEL (11/27/2007 6:10 AM HAND SHAPER) GLUCOSE 93 70 - 110 mg/dL INTERFACE [...] 295 mOsm/Kg INTERFACE SYSTEM 11/27/2007 6:10 AM HAND SHAPER Result Latasha Brennan MD CHEMISTRY ORDERABLES Edited Performing Organization Address [facility] de Phone Number INTERFACE SYSTEM Refer to clinic/hospital department * POC GLUCOSE (11/27/2007 5:53 AM HAND SHAPER) GLUCOSE POC 98 60 - 100 mg/dL INTERFACE SYSTEM 11/27/2007 5:53 AM HAND SHAPER Result Latasha Brennan MD POINT OF CARE TESTING Edited Performing Organization Address [facility] Phone Number INTERFACE SYSTEM Refer to clinic/hospital department * CARDIAC ENZYMES (11/27/2007 12:32 AM HAND SHAPER) TROPONIN I <0.1 0.0 - 1.3 ng/mL INTERFACE SYSTEM Comment: As of 07 the Troponin Reference Range has changed from 0.0-1.5 ng/ml to 0.0- 1.3 ng/ml due to a change in testing methodology. CKMB 0.3 0.0 - 5.0 ng/mL INTERFACE SYSTEM 11/27/2007 12:3 2 AM HAND SHAPER Result Latasha Brennan MD CHEMISTRY ORDERABLES Edited Performing Organization Address [facility] Phone Number INTERFACE SYSTEM Refer to clinic/hospital department * POC GLUCOSE (11/26/2007 11:38 PM HAND SHAPER) GLUCOSE POC 98 60 - 100 mg/dL INTERFACE SYSTEM 11/26/2007 11:3 8 PM HAND SHAPER Result Latasha Brennan MD POINT OF CARE TESTING Edited Performing Organization Address [facility] Phone Number INTERFACE SYSTEM Refer to clinic/hospital department * CARDIAC ENZYMES (11/26/2007 6:40 PM HAND SHAPER) TROPONIN I <0.1 0.0 - 1.3 ng/mL INTERFACE SYSTEM Comment: As of 07 the Troponin Reference Range has changed from 0.0-1.5 ng/ml to 0.0- 1.3 ng/ml due to a change in testing methodology. CKMB 0.2 0.0 - 5.0 ng/mL INTERFACE SYSTEM 11/26/2007 6:40 PM HAND SHAPER Result Latasha Brennan MD CHEMISTRY ORDERABLES Edited Performing Organization Address [facility]/ZIP Co de Phone Number INTERFACE SYSTEM Refer to clinic/hospital department * (ABNORMAL) POC GLUCOSE (11/26/2007 5:04 PM HAND SHAPER) GLUCOSE POC 109(H) 60 - 100 mg/dL INTERFACE SYSTEM 11/26/2007 5:04 PM HAND SHAPER Result Latasha Brennan MD POINT OF CARE TESTING Edited Performing Organization Address [facility] Phone Number INTERFACE SYSTEM Refer to clinic/hospital department * (ABNORMAL) POC GLUCOSE (11/26/2007 3:51 PM HAND SHAPER) GLUCOSE POC 121(H) 60 - 100 mg/dL INTERFACE SYSTEM 11/26/2007 3:51 PM HAND SHAPER Result Latasha Brenann MD POINT OF CARE TESTING Edited Performing Organization Address [facility] Phone Number INTERFACE SYSTEM Refer to clinic/hospital department * CARDIAC ENZYMES (11/26/2007 12:47 PM HAND SHAPER) TROPONIN I <0.1 0.0 - 1.3 ng/mL INTERFACE SYSTEM Comment: As of 07 the Troponin Reference Range has changed from 0.0-1.5 ng/ml to 0.0- 1.3 ng/ml due to a change in testing methodology. CKMB 0.3 0.0 - 5.0 ng/mL INTERFACE SYSTEM 11/26/2007 12:4 7 PM HAND SHAPER Result Latasha Brennan MD CHEMISTRY ORDERABLES Edited Performing Organization Address [facility] de Phone Number INTERFACE SYSTEM Refer to clinic/hospital department * (ABNORMAL) POC GLUCOSE (11/26/2007 12:19 PM HAND SHAPER) GLUCOSE POC 112(H) 60 - 100 mg/dL INTERFACE SYSTEM 11/26/2007 12:1 9 PM HAND SHAPER Result Latasha Brennan MD POINT OF CARE TESTING Edited Performing Organization Address [facility] de Phone Number INTERFACE SYSTEM Refer to clinic/hospital department * (ABNORMAL) POC GLUCOSE (11/26/2007 8:57 AM HAND SHAPER) GLUCOSE POC 125(H) 60 - 100 mg/dL INTERFACE SYSTEM 11/26/2007 8:57 AM HAND SHAPER Result Latasha Brennan MD POINT OF CARE TESTING Edited Performing Organization Address [facility] de Phone Number INTERFACE SYSTEM Refer to clinic/hospital department * (ABNORMAL) POC GLUCOSE (11/26/2007 4:58 AM HAND SHAPER) GLUCOSE POC 132(H) 60 - 100 mg/dL INTERFACE SYSTEM 11/26/2007 4:58 AM HAND SHAPER Result Latasha Brennan MD POINT OF CARE TESTING Edited Performing Organization Address [facility] Phone Number INTERFACE SYSTEM Refer to clinic/hospital department * (ABNORMAL) POC GLUCOSE (11/25/2007 11:20 PM HAND SHAPER) GLUCOSE POC 150(H) 60 - 100 mg/dL INTERFACE SYSTEM 11/25/2007 11:2 0 PM HAND SHAPER Result Latasha Brennan MD POINT OF CARE TESTING Edited Performing Organization Address [facility] Phone Number INTERFACE SYSTEM Refer to clinic/hospital department * (ABNORMAL) POC GLUCOSE (11/25/2007 7:02 PM HAND SHAPER) GLUCOSE POC 136(H) 60 - 100 mg/dL INTERFACE SYSTEM 11/25/2007 7:02 PM HAND SHAPER Result Latasha Brennan MD POINT OF CARE TESTING Edited Performing Organization Address [facility] de Phone Number INTERFACE SYSTEM Refer to clinic/hospital department * (ABNORMAL) POC GLUCOSE (11/25/2007 4:34 PM HAND SHAPER) GLUCOSE POC 144(H) 60 - 100 mg/dL INTERFACE SYSTEM 11/25/2007 4:34 PM HAND SHAPER Result Latasha Brennan MD POINT OF CARE TESTING Edited Performing Organization Address [facility] Phone Number INTERFACE SYSTEM Refer to clinic/hospital department * (ABNORMAL) POC GLUCOSE (11/25/2007 12:02 PM HAND SHAPER) GLUCOSE POC 145(H) 60 - 100 mg/dL INTERFACE SYSTEM 11/25/2007 12:0 2 PM HAND SHAPER Result Latasha Brennan MD POINT OF CARE TESTING Edited Performing Organization Address [facility] Phone Number INTERFACE SYSTEM Refer to clinic/hospital department * (ABNORMAL) ACETONE QUALITATIVE, URINE (11/25/2007 6:23 AM HAND SHAPER) KETONES UA Small(A) Negative INTERFACE SYSTEM 11/25/2007 6:23 AM HAND SHAPER Result Latasha Brennan MD URINE ORDERABLES Edited Performing Organization Address [facility] Phone Number INTERFACE SYSTEM Refer to clinic/hospital department * (ABNORMAL) GLUCOSE URINALYSIS, QUALITATIVE (11/25/2007 6:23 AM HAND SHAPER) GLUCOSE, URINE 1000(A) Negative INTER FACE SYSTEM 11/25/2007 6:23 AM HAND SHAPER Result Latasha Brennan MD URINE ORDERABLES Edited Performing Organization Address [facility] de Phone Number INTERFACE SYSTEM Refer to clinic/hospital department * URINALYSIS (11/25/2007 6:23 AM HAND SHAPER) COLOR UA Yellow Straw INTERFACE SYSTEM CLARITY [...] No No INTERFACE SYSTEM 11/25/2007 6:23 AM HAND SHAPER us Ermias Brennan MD URINE ORDERABLES Edited Performing Organization Address [facility] Phone Number INTERFACE SYSTEM Refer to clinic/hospital department * (ABNORMAL) HEMOGLOBIN A1C (11/25/2007 6:12 AM HAND SHAPER) HEMOGLOBIN A1C 10.8(H) 4.0 - 6.0 %A1C INTERFACE SYSTEM 11/25/2007 6:12 AM HAND SHAPER us Ermias Brennan MD CHEMISTRY ORDERABLES Edited Performing Organization Address [facility] Phone Number INTERFACE SYSTEM Refer to clinic/hospital department * TSH (11/25/2007 6:12 AM HAND SHAPER) TSH 0.470 0.350 - 5.500 uIU/ml INTERFACE SYSTEM 11/25/2007 6:12 AM HAND SHAPER Result Latasha Brennan MD CHEMISTRY ORDERABLES Edited Performing Organization Address [facility] Phone Number INTERFACE SYSTEM Refer to clinic/hospital department * HOMOCYSTEINE, SERUM (11/25/2007 6:12 AM HAND SHAPER) HOMOCYSTEINE, SERUM 7.5 5.0 - 12.5 umol/L INTERFACE SYSTEM 11/25/2007 6:12 AM HAND SHAPER us Ermias Brennan MD CHEMISTRY ORDERABLES Edited Performing Organization Address [facility] Phone Number INTERFACE SYSTEM Refer to clinic/hospital department * (ABNORMAL) LIPID PANEL (11/25/2007 6:12 AM HAND SHAPER) CHOLESTEROL 200 75 - 200 mg/dL INTERFACE SYSTEM HDL 35(L) 40 - 60 mg/dL INTERFACE SYSTEM TRIGLYCERIDE 81 0 - 200 mg/dL INTERFACE SYSTEM CALCULATED LDL CHOLESTEROL 149(H) 0 - 130 mg/dL INTERFACE SYSTEM CALCULATED TOTAL CHOLESTEROL TO HDL RATIO 5.71(H) 3.43 - 4.97 INTERFACE SYSTEM 11/25/2007 6:12 AM HAND SHAPER us Ermias Brennan MD CHEMISTRY ORDERABLES Edited Performing Organization Address [facility] de Phone Number INTERFACE SYSTEM Refer to clinic/hospital department * (ABNORMAL) COMPREHENSIVE METABOLIC PANEL (11/25/2007 6:12 AM HAND SHAPER) GLUCOSE 198(H) 70 - 110 mg/dL INTERFACE [...] 295 mOsm/Kg INTERFACE SYSTEM 11/25/2007 6:12 AM HAND SHAPER us Ermias Brennan MD CHEMISTRY ORDERABLES Edited Performing Organization Address [facility] Phone Number INTERFACE SYSTEM Refer to clinic/hospital department * (ABNORMAL) POC GLUCOSE (11/25/2007 2:17 AM HAND SHAPER) GLUCOSE POC 200(H) 60 - 100 mg/dL INTERFACE SYSTEM 11/25/2007 2:17 AM HAND SHAPER us Ermias Brennan MD POINT OF CARE TESTING Edited Performing Organization Address [facility]/ZIP Co de Phone Number INTERFACE SYSTEM Refer to clinic/hospital department * (ABNORMAL) POC GLUCOSE (11/24/2007 11:14 PM HAND SHAPER) GLUCOSE POC 185(H) 60 - 100 mg/dL INTERFACE SYSTEM 11/24/2007 11:1 4 PM HAND SHAPER us Ermias Brennan MD POINT OF CARE TESTING Edited Performing Organization Address [facility] Phone Number INTERFACE SYSTEM Refer to clinic/hospital department * PT AND APTT (11/24/2007 7:35 PM HAND SHAPER) PROTIME 13.0 12.8 - 15.8 Secs INTERFACE SYSTEM Comment: As of 2007 note change in normal range. INR 0.9 INTERFACE SYSTEM Comment: Expected Values for INR: DVT/PE Goal INR 2.5; range 2.0 - 3.0 Valve Replacement Tissue Goal INR 2.5; range 2.0 - 3.0 Mechanical Goal INR 3.0; range 2.5 - 3.5 POST-HI Goal INR 2.5; range 2.0 - 3.0 [...] in APTT Normal Range. 11/24/2007 7:35 PM HAND SHAPER us Mak Conti MD HEMATOLOGY ORDERABLES Edit ed Performing Organization Address [facility] de Phone Number INTERFACE SYSTEM Refer to clinic/hospital department * (ABNORMAL) CBC WITH DIFFERENTIAL (11/24/2007 7:35 PM HAND SHAPER) WBC 5.8 4.8 - 10.8 K/ul INTERFACE [...] 0.2 K/ul INTERFACE SYSTEM 11/24/2007 7:35 PM HAND SHAPER us Mak Conti MD HEMATOLOGY ORDERABLES Edit ed INTERFACE SYSTEM Refer to clinic/hospital department * (ABNORMAL) POC ISTAT 6 (11/24/2007 7:25 PM HAND SHAPER) SODIUM POC 138 136 - 145 mEq/L [...] 18.0 g/dL INTERFACE SYSTEM 11/24/2007 7:25 PM HAND SHAPER us Ermias Brennan MD POINT OF CARE TESTING Edited Performing Organization Address City/[facility] Co de Phone Number INTERFACE SYSTEM Refer to clinic/hospital department * POC CREATININE (11/24/2007 7:25 PM HAND SHAPER) CREATININE POC 0.8 0.7 - 1.5 mg/dL INTERFACE SYSTEM 11/24/2007 7:25 PM HAND SHAPER us Ermias Brennan MD POINT OF CARE TESTING Edited Performing Organization Address [facility] Co de Phone Number INTERFACE SYSTEM Refer [...] unspecified documented in this encounter Care Teams Financial Services Officer Relationship Specialty Start Date End Date Jaylene Mccoy DO PCP - General Family Practice 02/08/15 documented as of this encounter
--- OUTSIDE RECORDS SUMMARY | 2025-05-29 12:28 | XMS_ITS | Encounter Summary ---
Author Organization [employer] [facility] Address [address] [place] [address] Care Team Providers Care Train Station Server Name Role Phone Jaylene Mccoy Primary Care Provider [phone] Encounter Details Date Type Department Care Team (Late st Contact Info) Description 02/08/2015 Ancillary Orders [facility] [place] [address] [place] [id number] Jaylene MccoyDO [address] [place], [place] [address] Pain (Primary Dx) Social History Tobacco Use Types Packs/Day Years Used Date Smoking Tobacco: Every Day Cigarettes Alcohol Use Standard Drinks/Week Comments Yes 0 (1 standard drink = 0.6 oz pur e alcohol) rarely Sex and Gender Information Value Date Recorded Sex Assigned at Not on file 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
--- OUTSIDE RECORDS SUMMARY | 2025-05-29 12:28 | XMS_ITS | Encounter Summary ---
Author Organization [facility] Address [address] [place] [address] Care Team Providers Care Compression Molding Machine Setter Name Role Phone aJylene Mccoy DO Primary Care Provider [phone] Encounter Details Date Type Department Care Team (Latest Contact Info) Description 08/15/2002 Outpatient Historical [facility] Family Medicine [address] [id number] Jefferson Bhakta DO NO ADDRESS ON FILE ACUTE BRONCHITIS (Primary Dx) Social History Tobacco Use Types Packs/Day Years Used Date Smoking Tobacco: Never Assessed Sex and Gender Information Value Date Recorded Sex Assigned at Not on file 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
--- OUTSIDE RECORDS SUMMARY | 2025-05-29 12:28 | XMS_ITS | Encounter Summary ---
Author Organization [facility] Address [address] [place] [address] Care Team Providers Care Coat Presser Name Role Phone Jaylene Mccoy DO Primary Care Provider [phone] Encounter Details Date Type Department Care Team (Late st Contact Info) Description 11/29/2007 Inpatient Historical HIS IN BED Jh Poe MD [address] [place] [address] Acute, but Ill-Defined, Cerebrovascular Disease; Hemiplegia Affecting Side NOS (CMS/[facility]); Dysphasia, Late Effect of Cerebrovascular Disease; Neurological Neglect Syndrome; Candidiasis of Other Urogenital Sites; Chronic Airway Obstruction, not Elsewhere Classified (CMS/HCC); Dysphagia, Late Effect of Cerebrovascular Disease; Other Late Effects of Cerebrovascular Disease; Dysphagia, Oropharyngeal Phase; Other and Unspecified Angina Pectoris; Other and Unspecified Hyperlipidemia; Tobacco Use Disorder; Unspecified Essential Hypertension; Encounter for Long-Term (Current) Use of Insulin (CMS/[facility]); DM w/o Complication Type II ([facility]); Profound Impairment, One Eye, Impairment Level not Further Specified; Hypoxemia; Other Seborrheic Dermatitis; Abrasion Hip/Leg; Fall from Other Slipping, Tripping, or Stumbling; Place of Occurrence, Residential Institution Social History Tobacco Use Types Packs/Day Years Used Date Smoking Tobacco: Never Assessed Sex and Gender Information Value Date Recorded Sex Assigned at Not on file Legal Sex Male 6:04 AM CHILD DEVELOPMENT ASSOCIATE TEACHER Gender Identity Not on file Sexual Orientation Not on file documented as of this encounter Plan of Treatment Pending Results Name Type Priority Associated Diagnoses Date /Time URINE CULTURE Microbiology Routine 8 11:48 PM CHILD DEVELOPMENT ASSOCIATE TEACHER documented as of this encounter Procedures Procedure Name Priority Date/Time Associated Diagnosis Comments POC GLUCOSE Routine 12/22/2007 11:44 AM CHILD DEVELOPMENT ASSOCIATE TEACHER POC GLUCOSE Routine 12/22/2007 7:08 AM CHILD DEVELOPMENT ASSOCIATE TEACHER POC GLUCOSE Routine 12/21/2007 8:18 PM CHILD DEVELOPMENT ASSOCIATE TEACHER POC GLUCOSE Routine 12/21/2007 5:12 PM CHILD DEVELOPMENT ASSOCIATE TEACHER POC GLUCOSE Routine 12/21/2007 11:04 AM CHILD DEVELOPMENT ASSOCIATE TEACHER POC GLUCOSE Routine 12/21/2007 7:27 AM CHILD DEVELOPMENT ASSOCIATE TEACHER POC GLUCOSE Routine 12/20/2007 8:30 PM CHILD DEVELOPMENT ASSOCIATE TEACHER POC GLUCOSE Routine 12/20/2007 5:03 PM CHILD DEVELOPMENT ASSOCIATE TEACHER POC GLUCOSE Routine 12/20/2007 11:18 AM CHILD DEVELOPMENT ASSOCIATE TEACHER POC GLUCOSE Routine 12/20/2007 6:57 AM CHILD DEVELOPMENT ASSOCIATE TEACHER URINALYSIS W/REFLEX MICROSCOPIC Routine 12/19/2007 11:49 PM CHILD DEVELOPMENT ASSOCIATE TEACHER POC GLUCOSE Routine 12/19/2007 8:02 PM CHILD DEVELOPMENT ASSOCIATE TEACHER POC GLUCOSE Routine 12/19/2007 4:51 PM CHILD DEVELOPMENT ASSOCIATE TEACHER POC GLUCOSE Routine 12/19/2007 11:22 AM CHILD DEVELOPMENT ASSOCIATE TEACHER POC GLUCOSE Routine 12/19/2007 7:29 AM CHILD DEVELOPMENT ASSOCIATE TEACHER POC GLUCOSE Routine 12/18/2007 8:23 PM CHILD DEVELOPMENT ASSOCIATE TEACHER XR FEMUR 2 VW LEFT Routine 12/18/2007 6: 24 PM CHILD DEVELOPMENT ASSOCIATE TEACHER XR PELVIS 1 OR 2 VW Routine 12/18/2007 6 :24 PM CHILD DEVELOPMENT ASSOCIATE TEACHER POC GLUCOSE Routine 12/18/2007 4:54 PM CHILD DEVELOPMENT ASSOCIATE TEACHER POC GLUCOSE Routine 12/18/2007 11:41 AM CHILD DEVELOPMENT ASSOCIATE TEACHER POC GLUCOSE Routine 12/18/2007 6:51 AM CHILD DEVELOPMENT ASSOCIATE TEACHER POC GLUCOSE Routine 12/17/2007 9:30 PM CHILD DEVELOPMENT ASSOCIATE TEACHER POC GLUCOSE Routine 12/17/2007 5:01 PM CHILD DEVELOPMENT ASSOCIATE TEACHER POC GLUCOSE Routine 12/17/2007 11:30 AM CHILD DEVELOPMENT ASSOCIATE TEACHER POC GLUCOSE Routine 12/17/2007 5:42 AM CHILD DEVELOPMENT ASSOCIATE TEACHER POC GLUCOSE Routine 12/17/2007 12:21 AM CHILD DEVELOPMENT ASSOCIATE TEACHER POC GLUCOSE Routine 12/16/2007 5:20 PM CHILD DEVELOPMENT ASSOCIATE TEACHER XR SPEECH EVALUATION COMPLEX Routine 12/16/2007 2:19 PM CHILD DEVELOPMENT ASSOCIATE TEACHER POC GLUCOSE Routine 12/16/2007 12:06 PM CHILD DEVELOPMENT ASSOCIATE TEACHER CBC WITH DIFFERENTIAL Routine 12/16/2007 6:27 AM CHILD DEVELOPMENT ASSOCIATE TEACHER BASIC METABOLIC PANEL Routine 12/16/2007 6:27 AM CHILD DEVELOPMENT ASSOCIATE TEACHER POC GLUCOSE Routine 12/16/2007 5:49 AM CHILD DEVELOPMENT ASSOCIATE TEACHER POC GLUCOSE Routine 12/16/2007 12:13 AM CHILD DEVELOPMENT ASSOCIATE TEACHER POC GLUCOSE Routine 12/15/2007 5:44 PM CHILD DEVELOPMENT ASSOCIATE TEACHER POC GLUCOSE Routine 12/15/2007 11:56 AM CHILD DEVELOPMENT ASSOCIATE TEACHER POC GLUCOSE Routine 12/15/2007 5:48 AM CHILD DEVELOPMENT ASSOCIATE TEACHER POC GLUCOSE Routine 12/15/2007 12:25 AM CHILD DEVELOPMENT ASSOCIATE TEACHER POC GLUCOSE Routine 12/14/2007 8:49 PM CHILD DEVELOPMENT ASSOCIATE TEACHER POC GLUCOSE Routine 12/14/2007 5:10 PM CHILD DEVELOPMENT ASSOCIATE TEACHER POC GLUCOSE Routine 12/14/2007 12:06 PM CHILD DEVELOPMENT ASSOCIATE TEACHER POC GLUCOSE Routine 12/14/2007 6:23 AM CHILD DEVELOPMENT ASSOCIATE TEACHER POC GLUCOSE Routine 12/13/2007 8:32 PM CHILD DEVELOPMENT ASSOCIATE TEACHER POC GLUCOSE Routine 12/13/2007 4:25 PM CHILD DEVELOPMENT ASSOCIATE TEACHER POC GLUCOSE Routine 12/13/2007 11:47 AM CHILD DEVELOPMENT ASSOCIATE TEACHER POC GLUCOSE Routine 12/13/2007 5:21 AM CHILD DEVELOPMENT ASSOCIATE TEACHER POC GLUCOSE Routine 12/12/2007 11:51 PM CHILD DEVELOPMENT ASSOCIATE TEACHER POC GLUCOSE Routine 12/12/2007 8:14 PM CHILD DEVELOPMENT ASSOCIATE TEACHER POC GLUCOSE Routine 12/12/2007 8:14 PM CHILD DEVELOPMENT ASSOCIATE TEACHER POC GLUCOSE Routine 12/12/2007 4:26 PM CHILD DEVELOPMENT ASSOCIATE TEACHER POC GLUCOSE Routine 12/12/2007 4:26 PM CHILD DEVELOPMENT ASSOCIATE TEACHER POC GLUCOSE Routine 12/12/2007 11:46 AM CHILD DEVELOPMENT ASSOCIATE TEACHER POC GLUCOSE Routine 12/12/2007 11:46 AM CHILD DEVELOPMENT ASSOCIATE TEACHER POC GLUCOSE Routine 12/12/2007 6:56 AM CHILD DEVELOPMENT ASSOCIATE TEACHER POC GLUCOSE Routine 12/12/2007 6:56 AM CHILD DEVELOPMENT ASSOCIATE TEACHER POC GLUCOSE Routine 12/12/2007 5:41 AM CHILD DEVELOPMENT ASSOCIATE TEACHER POC GLUCOSE Routine 12/12/2007 5:41 AM CHILD DEVELOPMENT ASSOCIATE TEACHER POC GLUCOSE Routine 12/11/2007 11:48 PM CHILD DEVELOPMENT ASSOCIATE TEACHER POC GLUCOSE Routine 12/11/2007 11:48 PM CHILD DEVELOPMENT ASSOCIATE TEACHER POC GLUCOSE Routine 12/11/2007 9:34 PM CHILD DEVELOPMENT ASSOCIATE TEACHER POC GLUCOSE Routine 12/11/2007 5:05 PM CHILD DEVELOPMENT ASSOCIATE TEACHER POC GLUCOSE Routine 12/11/2007 11:53 AM CHILD DEVELOPMENT ASSOCIATE TEACHER POC GLUCOSE Routine 12/11/2007 5:52 AM CHILD DEVELOPMENT ASSOCIATE TEACHER POC GLUCOSE Routine 12/10/2007 11:18 PM CHILD DEVELOPMENT ASSOCIATE TEACHER POC GLUCOSE Routine 12/10/2007 5:31 PM CHILD DEVELOPMENT ASSOCIATE TEACHER POC GLUCOSE Routine 12/10/2007 11:38 AM CHILD DEVELOPMENT ASSOCIATE TEACHER POC GLUCOSE Routine 12/10/2007 5:23 AM CHILD DEVELOPMENT ASSOCIATE TEACHER POC GLUCOSE Routine 12/09/2007 11:19 PM CHILD DEVELOPMENT ASSOCIATE TEACHER POC GLUCOSE Routine 12/09/2007 7:32 PM CHILD DEVELOPMENT ASSOCIATE TEACHER POC GLUCOSE Routine 12/09/2007 11:39 AM CHILD DEVELOPMENT ASSOCIATE TEACHER POC GLUCOSE Routine 12/09/2007 5:39 AM CHILD DEVELOPMENT ASSOCIATE TEACHER POC GLUCOSE Routine 12/08/2007 11:24 PM CHILD DEVELOPMENT ASSOCIATE TEACHER POC GLUCOSE Routine 12/08/2007 5:34 PM CHILD DEVELOPMENT ASSOCIATE TEACHER POC GLUCOSE Routine 12/08/2007 11:00 AM CHILD DEVELOPMENT ASSOCIATE TEACHER POC GLUCOSE Routine 12/08/2007 5:56 AM CHILD DEVELOPMENT ASSOCIATE TEACHER POC GLUCOSE Routine 12/07/2007 11:22 PM CHILD DEVELOPMENT ASSOCIATE TEACHER POC GLUCOSE Routine 12/07/2007 5:36 PM CHILD DEVELOPMENT ASSOCIATE TEACHER POC GLUCOSE Routine 12/07/2007 12:07 PM CHILD DEVELOPMENT ASSOCIATE TEACHER XR SPEECH EVALUATION COMPLEX Routine 12/07/2007 11:13 AM CHILD DEVELOPMENT ASSOCIATE TEACHER POC GLUCOSE Routine 12/07/2007 5:33 AM CHILD DEVELOPMENT ASSOCIATE TEACHER POC GLUCOSE Routine 12/06/2007 11:36 PM CHILD DEVELOPMENT ASSOCIATE TEACHER POC GLUCOSE Routine 12/06/2007 4:30 PM CHILD DEVELOPMENT ASSOCIATE TEACHER POC GLUCOSE Routine 12/06/2007 11:29 AM CHILD DEVELOPMENT ASSOCIATE TEACHER POC GLUCOSE Routine 12/06/2007 6:37 AM CHILD DEVELOPMENT ASSOCIATE TEACHER CBC WITH DIFFERENTIAL Routine 12/06/2007 6:05 AM CHILD DEVELOPMENT ASSOCIATE TEACHER POC GLUCOSE Routine 12/06/2007 12:04 AM CHILD DEVELOPMENT ASSOCIATE TEACHER POC GLUCOSE Routine 12/05/2007 4:51 PM CHILD DEVELOPMENT ASSOCIATE TEACHER POC GLUCOSE Routine 12/05/2007 11:57 AM CHILD DEVELOPMENT ASSOCIATE TEACHER POC GLUCOSE Routine 12/05/2007 6:38 AM CHILD DEVELOPMENT ASSOCIATE TEACHER POC GLUCOSE Routine 12/05/2007 5:28 AM CHILD DEVELOPMENT ASSOCIATE TEACHER POC GLUCOSE Routine 12/04/2007 11:33 PM CHILD DEVELOPMENT ASSOCIATE TEACHER POC GLUCOSE Routine 12/04/2007 4:49 PM CHILD DEVELOPMENT ASSOCIATE TEACHER POC GLUCOSE Routine 12/04/2007 10:58 AM CHILD DEVELOPMENT ASSOCIATE TEACHER POC GLUCOSE Routine 12/04/2007 5:13 AM CHILD DEVELOPMENT ASSOCIATE TEACHER POC GLUCOSE Routine 12/03/2007 11:37 PM CHILD DEVELOPMENT ASSOCIATE TEACHER POC GLUCOSE Routine 12/03/2007 5:06 PM CHILD DEVELOPMENT ASSOCIATE TEACHER POC GLUCOSE Routine 12/03/2007 10:54 AM CHILD DEVELOPMENT ASSOCIATE TEACHER POC GLUCOSE Routine 12/03/2007 5:16 AM CHILD DEVELOPMENT ASSOCIATE TEACHER POC GLUCOSE Routine 12/02/2007 11:21 PM CHILD DEVELOPMENT ASSOCIATE TEACHER ICTOTEST Routine 12/02/2007 9:18 PM CHILD DEVELOPMENT ASSOCIATE TEACHER URINALYSIS W/REFLEX MICROSCOPIC Routine 12/02/2007 9:18 PM CHILD DEVELOPMENT ASSOCIATE TEACHER POC GLUCOSE Routine 12/02/2007 5:21 PM CHILD DEVELOPMENT ASSOCIATE TEACHER POC GLUCOSE Routine 12/02/2007 11:17 AM CHILD DEVELOPMENT ASSOCIATE TEACHER POC GLUCOSE Routine 12/02/2007 8:37 AM CHILD DEVELOPMENT ASSOCIATE TEACHER POC GLUCOSE Routine 12/02/2007 5:37 AM CHILD DEVELOPMENT ASSOCIATE TEACHER POC GLUCOSE Routine 12/01/2007 11:57 PM CHILD DEVELOPMENT ASSOCIATE TEACHER POC GLUCOSE Routine 12/01/2007 4:53 PM CHILD DEVELOPMENT ASSOCIATE TEACHER POC GLUCOSE Routine 12/01/2007 10:48 AM CHILD DEVELOPMENT ASSOCIATE TEACHER POC GLUCOSE Routine 12/01/2007 5:37 AM CHILD DEVELOPMENT ASSOCIATE TEACHER ICTOTEST Routine 12/01/2007 3:37 AM CHILD DEVELOPMENT ASSOCIATE TEACHER GLUCOSE URINALYSIS, QUALITATIVE Routine 12/01/2007 3:37 AM CHILD DEVELOPMENT ASSOCIATE TEACHER URINALYSIS MICROSCOPY ONLY Routine 12/01/2007 3:37 AM CHILD DEVELOPMENT ASSOCIATE TEACHER KETONE, QUALITATIVE, URINE Routine 12/01/2007 3:37 AM CHILD DEVELOPMENT ASSOCIATE TEACHER URINALYSIS W/REFLEX MICROSCOPIC Routine 12/01/2007 3:37 AM CHILD DEVELOPMENT ASSOCIATE TEACHER POC GLUCOSE Routine 11/30/2007 11:50 PM CHILD DEVELOPMENT ASSOCIATE TEACHER POC BLOOD GAS, LYTES AND H+H Routine 11/30/2007 7:30 PM CHILD DEVELOPMENT ASSOCIATE TEACHER POC GLUCOSE Routine 11/30/2007 4:48 PM CHILD DEVELOPMENT ASSOCIATE TEACHER POC GLUCOSE Routine 11/30/2007 11:44 AM CHILD DEVELOPMENT ASSOCIATE TEACHER CBC WITH DIFFERENTIAL Routine 11/30/2007 6:15 AM CHILD DEVELOPMENT ASSOCIATE TEACHER VITAMIN B12 LEVEL Routine 11/30/2007 6:1 5 AM CHILD DEVELOPMENT ASSOCIATE TEACHER COMPREHENSIVE METABOLIC PANEL Routine 11/30/2007 6:15 AM CHILD DEVELOPMENT ASSOCIATE TEACHER POC GLUCOSE Routine 11/30/2007 5:36 AM CHILD DEVELOPMENT ASSOCIATE TEACHER POC GLUCOSE Routine 11/29/2007 11:59 PM CHILD DEVELOPMENT ASSOCIATE TEACHER XR HIP 2 OR 3 VIEWS LT Routine 7:13 PM CHILD DEVELOPMENT ASSOCIATE TEACHER documented in this encounter Results * (ABNORMAL) POC GLUCOSE (12/22/2007 11:44 AM CHILD DEVELOPMENT ASSOCIATE TEACHER) GLUCOSE POC 119(H) 60 - 100 mg/dL [facility] Capillary blood specimen (specimen) 12/22/2007 11:44 AM CHILD DEVELOPMENT ASSOCIATE TEACHER 12/22/2007 11:40 PM CHILD DEVELOPMENT ASSOCIATE TEACHER Jh Poe MD POINT OF CARE TESTING Final Resu lt Performing Organization Address [facility] Co de Phone Number [facility] [address] [place] [address] * (ABNORMAL) POC GLUCOSE (12/22/2007 7:08 AM CHILD DEVELOPMENT ASSOCIATE TEACHER) GLUCOSE POC 111(H) 60 - 100 mg/dL [facility] Capillary blood specimen (specimen) 12/22/2007 7:08 AM CHILD DEVELOPMENT ASSOCIATE TEACHER 12/22/2007 11:40 PM CHILD DEVELOPMENT ASSOCIATE TEACHER Jh Poe MD POINT OF CARE TESTING Final Resu lt Performing Organization Address [facility] Co de Phone Number [facility] [address] [place] [address] * (ABNORMAL) POC GLUCOSE (12/21/2007 8:18 PM CHILD DEVELOPMENT ASSOCIATE TEACHER) GLUCOSE POC 117(H) 60 - 100 mg/dL [facility] Capillary blood specimen (specimen) 12/21/2007 8:18 PM CHILD DEVELOPMENT ASSOCIATE TEACHER 12/21/2007 11:37 PM CHILD DEVELOPMENT ASSOCIATE TEACHER Jh Poe MD POINT OF CARE TESTING Final Resu lt Performing Organization Address [facility] de Phone Number [facility] [address] [place] [address] * POC GLUCOSE (12/21/2007 5:12 PM CHILD DEVELOPMENT ASSOCIATE TEACHER) GLUCOSE POC 84 60 - 100 mg/dL [facility] Capillary blood specimen (specimen) 12/21/2007 5:12 PM CHILD DEVELOPMENT ASSOCIATE TEACHER 12/21/2007 11:36 PM CHILD DEVELOPMENT ASSOCIATE TEACHER Jh Poe MD POINT OF CARE TESTING Final Resu lt Performing Organization Address [facility] Phone Number [facility] [address] [place] [address] * (ABNORMAL) POC GLUCOSE (12/21/2007 11:04 AM CHILD DEVELOPMENT ASSOCIATE TEACHER) GLUCOSE POC 117(H) 60 - 100 mg/dL [facility] Capillary blood specimen (specimen) 12/21/2007 11:04 AM CHILD DEVELOPMENT ASSOCIATE TEACHER 12/21/2007 11:36 PM CHILD DEVELOPMENT ASSOCIATE TEACHER Jh Poe MD POINT OF CARE TESTING Final Resu lt Performing Organization Address [facility] de Phone Number [facility] [address] [place] [address] * (ABNORMAL) POC GLUCOSE (12/21/2007 7:27 AM CHILD DEVELOPMENT ASSOCIATE TEACHER) GLUCOSE POC 107(H) 60 - 100 mg/dL [facility] Capillary blood specimen (specimen) 12/21/2007 7:27 AM CHILD DEVELOPMENT ASSOCIATE TEACHER 12/21/2007 11:40 PM CHILD DEVELOPMENT ASSOCIATE TEACHER Jh Poe MD POINT OF CARE TESTING Final Resu lt Performing Organization Address [facility] Co de Phone Number [facility] [address] [place] [address] * (ABNORMAL) POC GLUCOSE (12/20/2007 8:30 PM CHILD DEVELOPMENT ASSOCIATE TEACHER) GLUCOSE POC 134(H) 60 - 100 mg/dL [facility] Capillary blood specimen (specimen) 12/20/2007 8:30 PM CHILD DEVELOPMENT ASSOCIATE TEACHER 12/21/2007 12:44 AM CHILD DEVELOPMENT ASSOCIATE TEACHER Jh Poe MD POINT OF CARE TESTING Final Resu lt Performing Organization Address [facility] de Phone Number [facility] [address] [place] [address] * POC GLUCOSE (12/20/2007 5:03 PM CHILD DEVELOPMENT ASSOCIATE TEACHER) GLUCOSE POC 90 60 - 100 mg/dL [facility] Capillary blood specimen (specimen) 12/20/2007 5:03 PM CHILD DEVELOPMENT ASSOCIATE TEACHER 12/21/2007 12:44 AM CHILD DEVELOPMENT ASSOCIATE TEACHER Jh Poe MD POINT OF CARE TESTING Final Resu lt Performing Organization Address [facility] Phone Number [facility] [address] [place] [address] * (ABNORMAL) POC GLUCOSE (12/20/2007 11:18 AM CHILD DEVELOPMENT ASSOCIATE TEACHER) GLUCOSE POC 133(H) 60 - 100 mg/dL [facility] Capillary blood specimen (specimen) 12/20/2007 11:18 AM CHILD DEVELOPMENT ASSOCIATE TEACHER 12/21/2007 12:38 AM CHILD DEVELOPMENT ASSOCIATE TEACHER Jh Poe MD POINT OF CARE TESTING Final Resu lt Performing Organization Address [facility] Phone Number [facility] [address] [place] [address] * (ABNORMAL) POC GLUCOSE (12/20/2007 6:57 AM CHILD DEVELOPMENT ASSOCIATE TEACHER) COMMENT POC Follow Protocol [facility] GLUCOSE POC 106(H) 60 - 100 mg/dL [facility] Capillary blood specimen (specimen) 12/20/2007 6:57 AM CHILD DEVELOPMENT ASSOCIATE TEACHER 12/21/2007 12:37 AM CHILD DEVELOPMENT ASSOCIATE TEACHER Jh Poe MD POINT OF CARE TESTING Final Resu lt Performing Organization Address [facility] de Phone Number [facility] [address] [place] [address] * (ABNORMAL) URINALYSIS (12/19/2007 11:49 PM CHILD DEVELOPMENT ASSOCIATE TEACHER) UROBILINOGEN UA 0.2 0.2 [facility] CLARITY UA Clear Clear [facility] SPECIFIC GRAVITY UA >=1.030(A) <=1.005 [facility] GLUCOSE UA 250 mg/dl(A) NEGATIVE [facility] PH UA 5.5 5.0 - 9.0 [facility] BILIRUBIN UA NEGATIVE NEGATIVE [facility] LEUKOCYTE ESTERASE UA NEGATIVE NEGATIVE [facility] KETONES UA NEGATIVE NEGATIVE [facility] MICRO EXAM No No [facility] COLOR UA Yellow Straw [facility] PROTEIN UA NEGATIVE NEGATIVE [facility] BLOOD UA NEGATIVE NEGATIVE [facility] NITRITE UA NEGATIVE NEGATIVE [facility] Urine specimen (specimen) 12/19/2007 11:49 PM CHILD DEVELOPMENT ASSOCIATE TEACHER 12/19/2007 11:55 PM CHILD DEVELOPMENT ASSOCIATE TEACHER us Jh Poe MD URINE ORDERABLES Final Result Performing Organization Address [facility] de Phone Number [facility] [address] [place] [address] * (ABNORMAL) POC GLUCOSE (12/19/2007 8:02 PM CHILD DEVELOPMENT ASSOCIATE TEACHER) GLUCOSE POC 145(H) 60 - 100 mg/dL [facility] Capillary blood specimen (specimen) 12/19/2007 8:02 PM CHILD DEVELOPMENT ASSOCIATE TEACHER 12/20/2007 1:17 AM CHILD DEVELOPMENT ASSOCIATE TEACHER Jh Poe MD POINT OF CARE TESTING Final Resu lt Performing Organization Address [facility] de Phone Number [facility] [address] [place] [address] * (ABNORMAL) POC GLUCOSE (12/19/2007 4:51 PM CHILD DEVELOPMENT ASSOCIATE TEACHER) GLUCOSE POC 115(H) 60 - 100 mg/dL [facility] Capillary blood specimen (specimen) 12/19/2007 4:51 PM CHILD DEVELOPMENT ASSOCIATE TEACHER 12/20/2007 1:17 AM CHILD DEVELOPMENT ASSOCIATE TEACHER hJ Poe MD POINT OF CARE TESTING Final Resu lt Performing Organization Address [facility] Co de Phone Number [facility] [address] [place] [address] * (ABNORMAL) POC GLUCOSE (12/19/2007 11:22 AM CHILD DEVELOPMENT ASSOCIATE TEACHER) GLUCOSE POC 120(H) 60 - 100 mg/dL [facility] Capillary blood specimen (specimen) 12/19/2007 11:22 AM CHILD DEVELOPMENT ASSOCIATE TEACHER 12/20/2007 1:32 AM CHILD DEVELOPMENT ASSOCIATE TEACHER Jh Poe MD POINT OF CARE TESTING Final Resu lt Performing Organization Address [facility] Co de Phone Number [facility] [address] [place] [address] * (ABNORMAL) POC GLUCOSE (12/19/2007 7:29 AM CHILD DEVELOPMENT ASSOCIATE TEACHER) GLUCOSE POC 120(H) 60 - 100 mg/dL [facility] Capillary blood specimen (specimen) 12/19/2007 7:29 AM CHILD DEVELOPMENT ASSOCIATE TEACHER 12/20/2007 1:17 AM CHILD DEVELOPMENT ASSOCIATE TEACHER Jh Poe MD POINT OF CARE TESTING Final Resu lt Performing Organization Address [facility] Co de Phone Number [facility] [address] [place] [address] * (ABNORMAL) POC GLUCOSE (12/18/2007 8:23 PM CHILD DEVELOPMENT ASSOCIATE TEACHER) GLUCOSE POC 130(H) 60 - 100 mg/dL [facility] Capillary blood specimen (specimen) 12/18/2007 8:23 PM CHILD DEVELOPMENT ASSOCIATE TEACHER 12/19/2007 3:42 AM CHILD DEVELOPMENT ASSOCIATE TEACHER Jh Poe MD POINT OF CARE TESTING Final Resu lt [facility] [place] [address] * XR PELVIS 1 OR 2 VW (12/18/2007 6:24 PM CHILD DEVELOPMENT ASSOCIATE TEACHER) Anatomical Region Laterality Modality Pelvis Other 12/18/2007 6:24 PM CHILD DEVELOPMENT ASSOCIATE TEACHER Narrative 12/18/2007 6:24 PM CHILD DEVELOPMENT ASSOCIATE TEACHER LEFT HIP AND PELVIS: 12/18/2007 CLINICAL INFORMATION: [...] FEMUR 2 VW LEFT (12/18/2007 6:24 PM CHILD DEVELOPMENT ASSOCIATE TEACHER) Anatomical Region Laterality Modality Lower Extremity Other 12/18/2007 6:24 PM CHILD DEVELOPMENT ASSOCIATE TEACHER Narrative 12/18/2007 6:24 PM CHILD DEVELOPMENT ASSOCIATE TEACHER LEFT FEMUR: 12/18/2007 CLINICAL INFORMATION: Rule out [...] * (ABNORMAL) POC GLUCOSE (12/18/2007 4:54 PM CHILD DEVELOPMENT ASSOCIATE TEACHER) GLUCOSE POC 105(H) 60 - 100 mg/dL [facility] Capillary blood specimen (specimen) 12/18/2007 4:54 PM CHILD DEVELOPMENT ASSOCIATE TEACHER 12/19/2007 3:42 AM CHILD DEVELOPMENT ASSOCIATE TEACHER Jh Poe MD POINT OF CARE TESTING Final Resu lt Performing Organization Address [facility] de Phone Number [facility] [address] [place] [address] * (ABNORMAL) POC GLUCOSE (12/18/2007 11:41 AM CHILD DEVELOPMENT ASSOCIATE TEACHER) GLUCOSE POC 115(H) 60 - 100 mg/dL [facility] Capillary blood specimen (specimen) 12/18/2007 11:41 AM CHILD DEVELOPMENT ASSOCIATE TEACHER 12/19/2007 3:42 AM CHILD DEVELOPMENT ASSOCIATE TEACHER Jh Poe MD POINT OF CARE TESTING Final Resu lt Performing Organization Address [facility] de Phone Number [facility] [address] [place] [address] * (ABNORMAL) POC GLUCOSE (12/18/2007 6:51 AM CHILD DEVELOPMENT ASSOCIATE TEACHER) GLUCOSE POC 112(H) 60 - 100 mg/dL [facility] Capillary blood specimen (specimen) 12/18/2007 6:51 AM CHILD DEVELOPMENT ASSOCIATE TEACHER 12/19/2007 3:42 AM CHILD DEVELOPMENT ASSOCIATE TEACHER us Jh Poe MD POINT OF CARE TESTING Final Resu lt Performing Organization Address [facility] Phone Number [facility] [address] [place] [address] * POC GLUCOSE (12/17/2007 9:30 PM CHILD DEVELOPMENT ASSOCIATE TEACHER) GLUCOSE POC 83 60 - 100 mg/dL [facility] Capillary blood specimen (specimen) 12/17/2007 9:30 PM CHILD DEVELOPMENT ASSOCIATE TEACHER 12/18/2007 2:30 AM CHILD DEVELOPMENT ASSOCIATE TEACHER us Jh Poe MD POINT OF CARE TESTING Final Resu lt Performing Organization Address [facility] Phone Number [facility] [address] [place] [address] * POC GLUCOSE (12/17/2007 5:01 PM CHILD DEVELOPMENT ASSOCIATE TEACHER) GLUCOSE POC 80 60 - 100 mg/dL [facility] Capillary blood specimen (specimen) 12/17/2007 5:01 PM CHILD DEVELOPMENT ASSOCIATE TEACHER 12/18/2007 2:26 AM CHILD DEVELOPMENT ASSOCIATE TEACHER us Jh Poe MD POINT OF CARE TESTING Final Resu lt Performing Organization Address [facility] Phone Number [facility] [address] [place] [address] * (ABNORMAL) POC GLUCOSE (12/17/2007 11:30 AM CHILD DEVELOPMENT ASSOCIATE TEACHER) GLUCOSE POC 112(H) 60 - 100 mg/dL [facility] Capillary blood specimen (specimen) 12/17/2007 11:30 AM CHILD DEVELOPMENT ASSOCIATE TEACHER 12/18/2007 2:30 AM CHILD DEVELOPMENT ASSOCIATE TEACHER us Jh Poe MD POINT OF CARE TESTING Final Resu lt Performing Organization Address [facility] de Phone Number [facility] [address] [place] [address] * (ABNORMAL) POC GLUCOSE (12/17/2007 5:42 AM CHILD DEVELOPMENT ASSOCIATE TEACHER) GLUCOSE POC 119(H) 60 - 100 mg/dL [facility] Capillary blood specimen (specimen) 12/17/2007 5:42 AM CHILD DEVELOPMENT ASSOCIATE TEACHER 12/18/2007 2:26 AM CHILD DEVELOPMENT ASSOCIATE TEACHER Jh Poe MD POINT OF CARE TESTING Final Resu lt Performing Organization Address [facility] Phone Number [facility] [address] [place] [address] * (ABNORMAL) POC GLUCOSE (12/17/2007 12:21 AM CHILD DEVELOPMENT ASSOCIATE TEACHER) GLUCOSE POC 160(H) 60 - 100 mg/dL [facility] Capillary blood specimen (specimen) 12/17/2007 12:21 AM CHILD DEVELOPMENT ASSOCIATE TEACHER 12/18/2007 2:29 AM CHILD DEVELOPMENT ASSOCIATE TEACHER Jh Poe MD POINT OF CARE TESTING Final Resu lt Performing Organization Address [facility] Phone Number [facility] [address] [place] [address] * POC GLUCOSE (12/16/2007 5:20 PM CHILD DEVELOPMENT ASSOCIATE TEACHER) GLUCOSE POC 98 60 - 100 mg/dL [facility] Capillary blood specimen (specimen) 12/16/2007 5:20 PM CHILD DEVELOPMENT ASSOCIATE TEACHER 12/16/2007 11:42 PM CHILD DEVELOPMENT ASSOCIATE TEACHER Jh Poe MD POINT OF CARE TESTING Final Resu lt Performing Organization Address [facility] de Phone Number [facility] [address] [place] [address] * XR SPEECH EVALUATION COMPLEX (12/16/2007 2:19 PM CHILD DEVELOPMENT ASSOCIATE TEACHER) Anatomical Region Laterality Modality Other 12/16/2007 2:19 PM CHILD DEVELOPMENT ASSOCIATE TEACHER Narrative 12/16/2007 3:16 PM CHILD DEVELOPMENT ASSOCIATE TEACHER Fluoroscopy was used for performance of video swallow study. For further details, please see speech pathology report. - Procedure Note Octavio Young Jr. - 12/16/2007 Fluoroscopy was used for performance of video swallow study. For furtherdetails, please see speech pathology report. - us Jh Poe MD DIAGNOSTIC IMAGING ORDERABLES Fi nal Result * (ABNORMAL) POC GLUCOSE (12/16/2007 12:06 PM CHILD DEVELOPMENT ASSOCIATE TEACHER) GLUCOSE POC 154(H) 60 - 100 mg/dL [facility] Capillary blood specimen (specimen) 12/16/2007 12:06 PM CHILD DEVELOPMENT ASSOCIATE TEACHER 12/16/2007 11:41 PM CHILD DEVELOPMENT ASSOCIATE TEACHER us Jh Poe MD POINT OF CARE TESTING Final Resu lt Performing Organization Address City/State/[facility] Co de Phone Number [facility] [address] [place] [address] * (ABNORMAL) BASIC METABOLIC PANEL (12/16/2007 6:27 AM CHILD DEVELOPMENT ASSOCIATE TEACHER) POTASSIUM 4.3 3.5 - 5.0 mEq/L [facility] CALCIUM 9.3 8.4 - 10.5 mg/dL [facility] CREATININE 0.7 0.7 - 1.5 mg/dL [facility] CHLORIDE 103 95 - 110 mEq/L [facility] GLUCOSE 146(H) 70 - 110 mg/dL [facility] ANION GAP 13 9 - 20 mEq/L [facility] SODIUM 138 136 - 145 mEq/L [facility] CO2 26 22 - 32 mmol/l [facility] BUN 13 9 - 20 mg/dL [facility] OSMOLALITY, CALCULATED 287 275 - 295 mOsm/Kg [facility] Blood specimen (specimen) 12/16/2007 6:27 AM CHILD DEVELOPMENT ASSOCIATE TEACHER 12/16/2007 6:42 AM CHILD DEVELOPMENT ASSOCIATE TEACHER us Jh Poe MD CHEMISTRY ORDERABLES Final Resul t [facility] [address] [place] [address] * (ABNORMAL) CBC WITH DIFFERENTIAL (12/16/2007 6:27 AM CHILD DEVELOPMENT ASSOCIATE TEACHER) RBC 5.21 4.60 - 6.20 Mil/ul [facility] MCHC 34.5 30.0 - 35.0 g/dL [facility] LYMPHOCYTE ABSOLUTE 1.5 1.2 - 4.0 K/ul [facility] LYMPHOCYTES 20.7(L) 24.0 - 44.0 % [facility] MCV 87.9 84.0 - 103.0 Fl [facility] BASOPHILS 0.3 0.0 - 1.0 % [facility] MPV 11.9 8.9 - 12.8 Fl [facility] BASOPHILS ABSOLUTE 0.0 0.0 - 0.2 K/ul [facility] HEMOGLOBIN 15.8 14.0 - 18.0 g/dL [facility] MONOCYTES 8.2 2.0 - 10.0 % [facility] RDW 12.3 11.0 - 14.5 % [facility] MONOCYTE ABSOLUTE 0.6 0.1 - 0.6 K/ul [facility] WBC 7.4 4.8 - 10.8 K/ul [facility] NEUTROPHILS 68.6 42.2 - 75.2 % [facility] MCH 30.3 27.0 - 34.0 pg [facility] NEUTROPHIL ABSOLUTE 5.1 2.0 - 8.0 K/ul [facility] HEMATOCRIT 45.8 41.0 - 53.0 % [facility] PLATELETS 129(L) 140 - 440 K/ul [facility] EOSINOPHIL ABSOLUTE 0.2 0.0 - 0.7 K/ul [facility] EOSINOPHILS 2.2 0.0 - 7.0 % [facility] Blood specimen (specimen) 12/16/2007 6:27 AM CHILD DEVELOPMENT ASSOCIATE TEACHER 12/16/2007 6:42 AM CHILD DEVELOPMENT ASSOCIATE TEACHER Jh Poe MD HEMATOLOGY ORDERABLES Final Resu lt Performing Organization Address [facility] Phone Number [facility] [address] [place] [address] * (ABNORMAL) POC GLUCOSE (12/16/2007 5:49 AM CHILD DEVELOPMENT ASSOCIATE TEACHER) GLUCOSE POC 161(H) 60 - 100 mg/dL [facility] Capillary blood specimen (specimen) 12/16/2007 5:49 AM CHILD DEVELOPMENT ASSOCIATE TEACHER 12/16/2007 11:50 PM CHILD DEVELOPMENT ASSOCIATE TEACHER Jh Poe MD POINT OF CARE TESTING Final Resu lt Performing Organization Address [facility] Phone Number [facility] [address] [place] [address] * (ABNORMAL) POC GLUCOSE (12/16/2007 12:13 AM CHILD DEVELOPMENT ASSOCIATE TEACHER) GLUCOSE POC 130(H) 60 - 100 mg/dL [facility] Capillary blood specimen (specimen) 12/16/2007 12:13 AM CHILD DEVELOPMENT ASSOCIATE TEACHER 12/16/2007 11:50 PM CHILD DEVELOPMENT ASSOCIATE TEACHER Jh Poe MD POINT OF CARE TESTING Final Resu lt Performing Organization Address [facility] Phone Number [facility] [address] [place] [address] * (ABNORMAL) POC GLUCOSE (12/15/2007 5:44 PM CHILD DEVELOPMENT ASSOCIATE TEACHER) GLUCOSE POC 107(H) 60 - 100 mg/dL [facility] Capillary blood specimen (specimen) 12/15/2007 5:44 PM CHILD DEVELOPMENT ASSOCIATE TEACHER 12/15/2007 10:52 PM CHILD DEVELOPMENT ASSOCIATE TEACHER Jh Poe MD POINT OF CARE TESTING Final Resu lt Performing Organization Address [facility] de Phone Number [facility] [address] [place] [address] * (ABNORMAL) POC GLUCOSE (12/15/2007 11:56 AM CHILD DEVELOPMENT ASSOCIATE TEACHER) GLUCOSE POC 180(H) 60 - 100 mg/dL [facility] Capillary blood specimen (specimen) 12/15/2007 11:56 AM CHILD DEVELOPMENT ASSOCIATE TEACHER 12/15/2007 10:51 PM CHILD DEVELOPMENT ASSOCIATE TEACHER Jh Poe MD POINT OF CARE TESTING Final Resu lt Performing Organization Address [facility] Co de Phone Number [facility] [address] [place] [address] * (ABNORMAL) POC GLUCOSE (12/15/2007 5:48 AM CHILD DEVELOPMENT ASSOCIATE TEACHER) COMMENT POC Notify [facility] GLUCOSE POC 174(H) 60 - 100 mg/dL [facility] Capillary blood specimen (specimen) 12/15/2007 5:48 AM CHILD DEVELOPMENT ASSOCIATE TEACHER 12/15/2007 10:54 PM CHILD DEVELOPMENT ASSOCIATE TEACHER Jh Poe MD POINT OF CARE TESTING Final Resu Performing Organization Address [facility] Co de Phone Number [facility] [address] [place] [address] * (ABNORMAL) POC GLUCOSE (12/15/2007 12:25 AM CHILD DEVELOPMENT ASSOCIATE TEACHER) GLUCOSE POC 143(H) 60 - 100 mg/dL [facility] Capillary blood specimen (specimen) 12/15/2007 12:25 AM CHILD DEVELOPMENT ASSOCIATE TEACHER 12/15/2007 10:51 PM CHILD DEVELOPMENT ASSOCIATE TEACHER Jh Poe MD POINT OF CARE TESTING Final Resu lt Performing Organization Address [facility] Co de Phone Number [facility] [address] [place] [address] * (ABNORMAL) POC GLUCOSE (12/14/2007 8:49 PM CHILD DEVELOPMENT ASSOCIATE TEACHER) GLUCOSE POC 124(H) 60 - 100 mg/dL [facility] Capillary blood specimen (specimen) 12/14/2007 8:49 PM CHILD DEVELOPMENT ASSOCIATE TEACHER 12/14/2007 10:25 PM CHILD DEVELOPMENT ASSOCIATE TEACHER Jh Poe MD POINT OF CARE TESTING Final Resu lt Performing Organization Address [facility] Phone Number [facility] [address] [place] [address] * POC GLUCOSE (12/14/2007 5:10 PM CHILD DEVELOPMENT ASSOCIATE TEACHER) GLUCOSE POC 97 60 - 100 mg/dL [facility] Capillary blood specimen (specimen) 12/14/2007 5:10 PM CHILD DEVELOPMENT ASSOCIATE TEACHER 12/14/2007 10:25 PM CHILD DEVELOPMENT ASSOCIATE TEACHER Jh Poe MD POINT OF CARE TESTING Final Resu lt Performing Organization Address [facility] Phone Number [facility] [address] [place] [address] * (ABNORMAL) POC GLUCOSE (12/14/2007 12:06 PM CHILD DEVELOPMENT ASSOCIATE TEACHER) GLUCOSE POC 136(H) 60 - 100 mg/dL [facility] Capillary blood specimen (specimen) 12/14/2007 12:06 PM CHILD DEVELOPMENT ASSOCIATE TEACHER 12/14/2007 10:25 PM CHILD DEVELOPMENT ASSOCIATE TEACHER Jh Poe MD POINT OF CARE TESTING Final Resu lt Performing Organization Address [employer] [facility] [employer] [facility] Number [facility] [address] [place] [address] * (ABNORMAL) POC GLUCOSE (12/14/2007 6:23 AM CHILD DEVELOPMENT ASSOCIATE TEACHER) GLUCOSE POC 167(H) 60 - 100 mg/dL [facility] Capillary blood specimen (specimen) 12/14/2007 6:23 AM CHILD DEVELOPMENT ASSOCIATE TEACHER 12/14/2007 10:24 PM CHILD DEVELOPMENT ASSOCIATE TEACHER Jh Poe MD POINT OF CARE TESTING Final Resu lt Performing Organization Address [facility] de Phone Number [facility] [address] [place] [address] * (ABNORMAL) POC GLUCOSE (12/13/2007 8:32 PM CHILD DEVELOPMENT ASSOCIATE TEACHER) GLUCOSE POC 102(H) 60 - 100 mg/dL [facility] Capillary blood specimen (specimen) 12/13/2007 8:32 PM CHILD DEVELOPMENT ASSOCIATE TEACHER 12/13/2007 9:37 PM CHILD DEVELOPMENT ASSOCIATE TEACHER us Jh Poe MD POINT OF CARE TESTING Final Resu lt Performing Organization Address [facility] de Phone Number [facility] [address] [place] [address] * POC GLUCOSE (12/13/2007 4:25 PM CHILD DEVELOPMENT ASSOCIATE TEACHER) GLUCOSE POC 89 60 - 100 mg/dL [facility] Capillary blood specimen (specimen) 12/13/2007 4:25 PM CHILD DEVELOPMENT ASSOCIATE TEACHER 12/13/2007 9:37 PM CHILD DEVELOPMENT ASSOCIATE TEACHER us Jh Poe MD POINT OF CARE TESTING Final Resu lt Performing Organization Address [facility] de Phone Number [facility] [address] [place] [address] * (ABNORMAL) POC GLUCOSE (12/13/2007 11:47 AM CHILD DEVELOPMENT ASSOCIATE TEACHER) GLUCOSE POC 140(H) 60 - 100 mg/dL [facility] Capillary blood specimen (specimen) 12/13/2007 11:47 AM CHILD DEVELOPMENT ASSOCIATE TEACHER 12/13/2007 9:37 PM CHILD DEVELOPMENT ASSOCIATE TEACHER Jh Poe MD POINT OF CARE TESTING Final Resu lt Performing Organization Address [facility] de Phone Number [facility] [address] [place] [address] * (ABNORMAL) POC GLUCOSE (12/13/2007 5:21 AM CHILD DEVELOPMENT ASSOCIATE TEACHER) GLUCOSE POC 171(H) 60 - 100 mg/dL [facility] Capillary blood specimen (specimen) 12/13/2007 5:21 AM CHILD DEVELOPMENT ASSOCIATE TEACHER 12/13/2007 9:37 PM CHILD DEVELOPMENT ASSOCIATE TEACHER us Jh Poe MD POINT OF CARE TESTING Final Resu lt Performing Organization Address [facility] de Phone Number [facility] [address] [place] [address] * (ABNORMAL) POC GLUCOSE (12/12/2007 11:51 PM CHILD DEVELOPMENT ASSOCIATE TEACHER) GLUCOSE POC 110(H) 60 - 100 mg/dL [facility] Capillary blood specimen (specimen) 12/12/2007 11:51 PM CHILD DEVELOPMENT ASSOCIATE TEACHER 12/13/2007 9:37 PM CHILD DEVELOPMENT ASSOCIATE TEACHER us Jh Poe MD POINT OF CARE TESTING Final Resu lt Performing Organization Address [facility] Phone Number [facility] [address] [place] [address] * (ABNORMAL) POC GLUCOSE (12/12/2007 8:14 PM CHILD DEVELOPMENT ASSOCIATE TEACHER) GLUCOSE POC 128(H) 60 - 100 mg/dL INTERFACE SYSTEM 12/12/2007 8:14 PM CHILD DEVELOPMENT ASSOCIATE TEACHER us Jh Poe MD POINT OF CARE TESTING Edited Performing Organization Address [facility] de Phone Number INTERFACE SYSTEM Refer to clinic/hospital department * (ABNORMAL) POC GLUCOSE (12/12/2007 8:14 PM CHILD DEVELOPMENT ASSOCIATE TEACHER) GLUCOSE POC 128(H) 60 - 100 mg/dL [facility] Blood specimen (specimen) 12/12/2007 8:14 PM CHILD DEVELOPMENT ASSOCIATE TEACHER 12/12/2007 11:14 PM CHILD DEVELOPMENT ASSOCIATE TEACHER us Jh Poe MD POINT OF CARE TESTING Final Resu lt Performing Organization Address [facility] de Phone Number [facility] [address] [place] [address] * POC GLUCOSE (12/12/2007 4:26 PM CHILD DEVELOPMENT ASSOCIATE TEACHER) GLUCOSE POC 67 60 - 100 mg/dL INTERFACE SYSTEM 12/12/2007 4:26 PM CHILD DEVELOPMENT ASSOCIATE TEACHER Jh Poe MD POINT OF CARE TESTING Edited Performing Organization Address [facility] Phone Number INTERFACE SYSTEM Refer to clinic/hospital department * POC GLUCOSE (12/12/2007 4:26 PM CHILD DEVELOPMENT ASSOCIATE TEACHER) GLUCOSE POC 67 60 - 100 mg/dL [facility] Blood specimen (specimen) 12/12/2007 4:26 PM CHILD DEVELOPMENT ASSOCIATE TEACHER 12/12/2007 11:14 PM CHILD DEVELOPMENT ASSOCIATE TEACHER us Jh Poe MD POINT OF CARE TESTING Final Resu lt Performing Organization Address [facility] Phone Number [facility] [address] [place] [address] * (ABNORMAL) POC GLUCOSE (12/12/2007 11:46 AM CHILD DEVELOPMENT ASSOCIATE TEACHER) GLUCOSE POC 161(H) 60 - 100 mg/dL INTERFACE SYSTEM 12/12/2007 11:4 6 AM CHILD DEVELOPMENT ASSOCIATE TEACHER us Jh Poe MD POINT OF CARE TESTING Edited Performing Organization Address [facility] Phone Number INTERFACE SYSTEM Refer to clinic/hospital department * (ABNORMAL) POC GLUCOSE (12/12/2007 11:46 AM CHILD DEVELOPMENT ASSOCIATE TEACHER) GLUCOSE POC 161(H) 60 - 100 mg/dL [facility] Blood specimen (specimen) 12/12/2007 11:46 AM CHILD DEVELOPMENT ASSOCIATE TEACHER 12/12/2007 11:17 PM CHILD DEVELOPMENT ASSOCIATE TEACHER us Jh Poe MD POINT OF CARE TESTING Final Resu lt Performing Organization Address [facility] de Phone Number [facility] [address] [place] [address] * (ABNORMAL) POC GLUCOSE (12/12/2007 6:56 AM CHILD DEVELOPMENT ASSOCIATE TEACHER) GLUCOSE POC 145(H) 60 - 100 mg/dL INTERFACE SYSTEM 12/12/2007 6:56 AM CHILD DEVELOPMENT ASSOCIATE TEACHER us Jh Poe MD POINT OF CARE TESTING Edited Performing Organization Address [facility] Phone Number INTERFACE SYSTEM Refer to clinic/hospital department * (ABNORMAL) POC GLUCOSE (12/12/2007 6:56 AM CHILD DEVELOPMENT ASSOCIATE TEACHER) GLUCOSE POC 145(H) 60 - 100 mg/dL [facility] Blood specimen (specimen) 12/12/2007 6:56 AM CHILD DEVELOPMENT ASSOCIATE TEACHER 12/12/2007 11:14 PM CHILD DEVELOPMENT ASSOCIATE TEACHER Jh Poe MD POINT OF CARE TESTING Final Resu lt Performing Organization Address [facility] Phone Number [facility] [address] [place] [address] * (ABNORMAL) POC GLUCOSE (12/12/2007 5:41 AM CHILD DEVELOPMENT ASSOCIATE TEACHER) GLUCOSE POC 176(H) 60 - 100 mg/dL INTERFACE SYSTEM 12/12/2007 5:41 AM CHILD DEVELOPMENT ASSOCIATE TEACHER us Jh Poe MD POINT OF CARE TESTING Edited Performing Organization Address [facility] Phone Number INTERFACE SYSTEM Refer to clinic/hospital department * (ABNORMAL) POC GLUCOSE (12/12/2007 5:41 AM CHILD DEVELOPMENT ASSOCIATE TEACHER) GLUCOSE POC 176(H) 60 - 100 mg/dL [facility] Blood specimen (specimen) 12/12/2007 5:41 AM CHILD DEVELOPMENT ASSOCIATE TEACHER 12/12/2007 11:08 PM CHILD DEVELOPMENT ASSOCIATE TEACHER us Jh Poe MD POINT OF CARE TESTING Final Resu lt Performing Organization Address [facility] Phone Number [facility] [address] [place] [address] * (ABNORMAL) POC GLUCOSE (12/11/2007 11:48 PM CHILD DEVELOPMENT ASSOCIATE TEACHER) GLUCOSE POC 173(H) 60 - 100 mg/dL INTERFACE SYSTEM 12/11/2007 11:4 8 PM CHILD DEVELOPMENT ASSOCIATE TEACHER us Jh Poe MD POINT OF CARE TESTING Edited Performing Organization Address [facility] Phone Number INTERFACE SYSTEM Refer to clinic/hospital department * (ABNORMAL) POC GLUCOSE (12/11/2007 11:48 PM CHILD DEVELOPMENT ASSOCIATE TEACHER) GLUCOSE POC 173(H) 60 - 100 mg/dL [facility] Blood specimen (specimen) 12/11/2007 11:48 PM CHILD DEVELOPMENT ASSOCIATE TEACHER 12/12/2007 11:17 PM CHILD DEVELOPMENT ASSOCIATE TEACHER us Jh Poe MD POINT OF CARE TESTING Final Resu lt Performing Organization Address [facility] Phone Number [facility] [address] [place] [address] * (ABNORMAL) POC GLUCOSE (12/11/2007 9:34 PM CHILD DEVELOPMENT ASSOCIATE TEACHER) GLUCOSE POC 143(H) 60 - 100 mg/dL INTERFACE SYSTEM 12/11/2007 9:34 PM CHILD DEVELOPMENT ASSOCIATE TEACHER us Jh Poe MD POINT OF CARE TESTING Edited Performing Organization Address [facility] de Phone Number INTERFACE SYSTEM Refer to clinic/hospital department * (ABNORMAL) POC GLUCOSE (12/11/2007 5:05 PM CHILD DEVELOPMENT ASSOCIATE TEACHER) GLUCOSE POC 113(H) 60 - 100 mg/dL INTERFACE SYSTEM 12/11/2007 5:05 PM CHILD DEVELOPMENT ASSOCIATE TEACHER us Jh Poe MD POINT OF CARE TESTING Edited Performing Organization Address [facility] de Phone Number INTERFACE SYSTEM Refer to clinic/hospital department * (ABNORMAL) POC GLUCOSE (12/11/2007 11:53 AM CHILD DEVELOPMENT ASSOCIATE TEACHER) GLUCOSE POC 173(H) 60 - 100 mg/dL INTERFACE SYSTEM 12/11/2007 11:5 3 AM CHILD DEVELOPMENT ASSOCIATE TEACHER us Jh Poe MD POINT OF CARE TESTING Edited Performing Organization Address City/[facility] Co de Phone Number INTERFACE SYSTEM Refer to clinic/hospital department * (ABNORMAL) POC GLUCOSE (12/11/2007 5:52 AM CHILD DEVELOPMENT ASSOCIATE TEACHER) GLUCOSE POC 186(H) 60 - 100 mg/dL INTERFACE SYSTEM 12/11/2007 5:52 AM CHILD DEVELOPMENT ASSOCIATE TEACHER us Jh Poe MD POINT OF CARE TESTING Edited Performing Organization Address [facility] de Phone Number INTERFACE SYSTEM Refer to clinic/hospital department * (ABNORMAL) POC GLUCOSE (12/10/2007 11:18 PM CHILD DEVELOPMENT ASSOCIATE TEACHER) GLUCOSE POC 176(H) 60 - 100 mg/dL INTERFACE SYSTEM 12/10/2007 11:1 8 PM CHILD DEVELOPMENT ASSOCIATE TEACHER us Jh Poe MD POINT OF CARE TESTING Edited Performing Organization Address [facility] de Phone Number INTERFACE SYSTEM Refer to clinic/hospital department * (ABNORMAL) POC GLUCOSE (12/10/2007 5:31 PM CHILD DEVELOPMENT ASSOCIATE TEACHER) GLUCOSE POC 115(H) 60 - 100 mg/dL INTERFACE SYSTEM 12/10/2007 5:31 PM CHILD DEVELOPMENT ASSOCIATE TEACHER us Jh Poe MD POINT OF CARE TESTING Edited Performing Organization Address City/[facility] Co de Phone Number INTERFACE SYSTEM Refer to clinic/hospital department * (ABNORMAL) POC GLUCOSE (12/10/2007 11:38 AM CHILD DEVELOPMENT ASSOCIATE TEACHER) GLUCOSE POC 190(H) 60 - 100 mg/dL INTERFACE SYSTEM 12/10/2007 11:3 8 AM CHILD DEVELOPMENT ASSOCIATE TEACHER us Jh Poe MD POINT OF CARE TESTING Edited Performing Organization Address City/State/[facility] de Phone Number INTERFACE SYSTEM Refer to clinic/hospital department * (ABNORMAL) POC GLUCOSE (12/10/2007 5:23 AM CHILD DEVELOPMENT ASSOCIATE TEACHER) GLUCOSE POC 181(H) 60 - 100 mg/dL INTERFACE SYSTEM 12/10/2007 5:23 AM CHILD DEVELOPMENT ASSOCIATE TEACHER us Jh Poe MD POINT OF CARE TESTING Edited Performing Organization Address City/[facility] de Phone Number INTERFACE SYSTEM Refer to clinic/hospital department * (ABNORMAL) POC GLUCOSE (12/09/2007 11:19 PM CHILD DEVELOPMENT ASSOCIATE TEACHER) GLUCOSE POC 158(H) 60 - 100 mg/dL INTERFACE SYSTEM 12/09/2007 11:1 9 PM CHILD DEVELOPMENT ASSOCIATE TEACHER us Jh Poe MD POINT OF CARE TESTING Edited Performing Organization Address [facility] Phone Number INTERFACE SYSTEM Refer to clinic/hospital department * (ABNORMAL) POC GLUCOSE (12/09/2007 7:32 PM CHILD DEVELOPMENT ASSOCIATE TEACHER) GLUCOSE POC 168(H) 60 - 100 mg/dL INTERFACE SYSTEM 12/09/2007 7:32 PM CHILD DEVELOPMENT ASSOCIATE TEACHER us Jh Poe MD POINT OF CARE TESTING Edited Performing Organization Address [facility] de Phone Number INTERFACE SYSTEM Refer to clinic/hospital department * (ABNORMAL) POC GLUCOSE (12/09/2007 11:39 AM CHILD DEVELOPMENT ASSOCIATE TEACHER) GLUCOSE POC 201(H) 60 - 100 mg/dL INTERFACE SYSTEM 12/09/2007 11:3 9 AM CHILD DEVELOPMENT ASSOCIATE TEACHER us Jh Poe MD POINT OF CARE TESTING Edited Performing Organization Address [facility] de Phone Number INTERFACE SYSTEM Refer to clinic/hospital department * (ABNORMAL) POC GLUCOSE (12/09/2007 5:39 AM CHILD DEVELOPMENT ASSOCIATE TEACHER) GLUCOSE POC 179(H) 60 - 100 mg/dL INTERFACE SYSTEM 12/09/2007 5:39 AM CHILD DEVELOPMENT ASSOCIATE TEACHER us Jh Poe MD POINT OF CARE TESTING Edited INTERFACE SYSTEM Refer to clinic/hospital department * (ABNORMAL) POC GLUCOSE (12/08/2007 11:24 PM CHILD DEVELOPMENT ASSOCIATE TEACHER) GLUCOSE POC 174(H) 60 - 100 mg/dL INTERFACE SYSTEM 12/08/2007 11:2 4 PM CHILD DEVELOPMENT ASSOCIATE TEACHER us Jh Poe MD POINT OF CARE TESTING Edited INTERFACE SYSTEM Refer to clinic/hospital department * POC GLUCOSE (12/08/2007 5:34 PM CHILD DEVELOPMENT ASSOCIATE TEACHER) GLUCOSE POC 75 60 - 100 mg/dL INTERFACE SYSTEM 12/08/2007 5:34 PM CHILD DEVELOPMENT ASSOCIATE TEACHER us Jh Poe MD POINT OF CARE TESTING Edited Performing Organization Address City/[facility] Co de Phone Number INTERFACE SYSTEM Refer to clinic/hospital department * (ABNORMAL) POC GLUCOSE (12/08/2007 11:00 AM CHILD DEVELOPMENT ASSOCIATE TEACHER) GLUCOSE POC 180(H) 60 - 100 mg/dL INTERFACE SYSTEM 12/08/2007 11:0 0 AM CHILD DEVELOPMENT ASSOCIATE TEACHER us Jh Poe MD POINT OF CARE TESTING Edited INTERFACE SYSTEM Refer to clinic/hospital department * (ABNORMAL) POC GLUCOSE (12/08/2007 5:56 AM CHILD DEVELOPMENT ASSOCIATE TEACHER) GLUCOSE POC 203(H) 60 - 100 mg/dL INTERFACE SYSTEM 12/08/2007 5:56 AM CHILD DEVELOPMENT ASSOCIATE TEACHER us Jh Poe MD POINT OF CARE TESTING Edited INTERFACE SYSTEM Refer to clinic/hospital department * (ABNORMAL) POC GLUCOSE (12/07/2007 11:22 PM CHILD DEVELOPMENT ASSOCIATE TEACHER) GLUCOSE POC 189(H) 60 - 100 mg/dL INTERFACE SYSTEM 12/07/2007 11:2 2 PM CHILD DEVELOPMENT ASSOCIATE TEACHER us Jh Poe MD POINT OF CARE TESTING Edited Performing Organization Address [facility] de Phone Number INTERFACE SYSTEM Refer to clinic/hospital department * (ABNORMAL) POC GLUCOSE (12/07/2007 5:36 PM CHILD DEVELOPMENT ASSOCIATE TEACHER) GLUCOSE POC 140(H) 60 - 100 mg/dL INTERFACE SYSTEM 12/07/2007 5:36 PM CHILD DEVELOPMENT ASSOCIATE TEACHER us Jh Poe MD POINT OF CARE TESTING Edited Performing Organization Address [facility] de Phone Number INTERFACE SYSTEM Refer to clinic/hospital department * (ABNORMAL) POC GLUCOSE (12/07/2007 12:07 PM CHILD DEVELOPMENT ASSOCIATE TEACHER) GLUCOSE POC 198(H) 60 - 100 mg/dL INTERFACE SYSTEM 12/07/2007 12:0 7 PM CHILD DEVELOPMENT ASSOCIATE TEACHER us Jh Poe MD POINT OF CARE TESTING Edited Performing Organization Address [facility] Phone Number INTERFACE SYSTEM Refer to clinic/hospital department * XR SPEECH EVALUATION COMPLEX (12/07/2007 11:13 AM CHILD DEVELOPMENT ASSOCIATE TEACHER) Anatomical Region Laterality Modality Other 12/07/2007 11:1 3 AM CHILD DEVELOPMENT ASSOCIATE TEACHER Narrative 12/07/2007 11:13 AM CHILD DEVELOPMENT ASSOCIATE TEACHER A video swallowing study performed by speech [...] * (ABNORMAL) POC GLUCOSE (12/07/2007 5:33 AM CHILD DEVELOPMENT ASSOCIATE TEACHER) GLUCOSE POC 186(H) 60 - 100 mg/dL INTERFACE SYSTEM 12/07/2007 5:33 AM CHILD DEVELOPMENT ASSOCIATE TEACHER us Jh Poe MD POINT OF CARE TESTING Edited Performing Organization Address City/[facility] Co de Phone Number INTERFACE SYSTEM Refer to clinic/hospital department * (ABNORMAL) POC GLUCOSE (12/06/2007 11:36 PM CHILD DEVELOPMENT ASSOCIATE TEACHER) GLUCOSE POC 174(H) 60 - 100 mg/dL INTERFACE SYSTEM 12/06/2007 11:3 6 PM CHILD DEVELOPMENT ASSOCIATE TEACHER us Jh Poe MD POINT OF CARE TESTING Edited Performing Organization Address City/[facility] de Phone Number INTERFACE SYSTEM Refer to clinic/hospital department * (ABNORMAL) POC GLUCOSE (12/06/2007 4:30 PM CHILD DEVELOPMENT ASSOCIATE TEACHER) GLUCOSE POC 137(H) 60 - 100 mg/dL INTERFACE SYSTEM 12/06/2007 4:30 PM CHILD DEVELOPMENT ASSOCIATE TEACHER us Jh Poe MD POINT OF CARE TESTING Edited Performing Organization Address City/[facility] de Phone Number INTERFACE SYSTEM Refer to clinic/hospital department * (ABNORMAL) POC GLUCOSE (12/06/2007 11:29 AM CHILD DEVELOPMENT ASSOCIATE TEACHER) GLUCOSE POC 174(H) 60 - 100 mg/dL INTERFACE SYSTEM 12/06/2007 11:2 9 AM CHILD DEVELOPMENT ASSOCIATE TEACHER us Jh Poe MD POINT OF CARE TESTING Edited Performing Organization Address City/State/[facility] Co de Phone Number INTERFACE SYSTEM Refer to clinic/hospital department * (ABNORMAL) POC GLUCOSE (12/06/2007 6:37 AM CHILD DEVELOPMENT ASSOCIATE TEACHER) GLUCOSE POC 225(H) 60 - 100 mg/dL INTERFACE SYSTEM 12/06/2007 6:37 AM CHILD DEVELOPMENT ASSOCIATE TEACHER us Jh Poe MD POINT OF CARE TESTING Edited INTERFACE SYSTEM Refer to clinic/hospital department * CBC WITH DIFFERENTIAL (12/06/2007 6:05 AM CHILD DEVELOPMENT ASSOCIATE TEACHER) WBC 6.5 4.8 - 10.8 K/ul INTERFACE [...] 0.2 K/ul INTERFACE SYSTEM 12/06/2007 6:05 AM CHILD DEVELOPMENT ASSOCIATE TEACHER Jh Poe MD HEMATOLOGY ORDERABLES Edited INTERFACE SYSTEM Refer to clinic/hospital department * (ABNORMAL) POC GLUCOSE (12/06/2007 12:04 AM CHILD DEVELOPMENT ASSOCIATE TEACHER) GLUCOSE POC 196(H) 60 - 100 mg/dL INTERFACE SYSTEM 12/06/2007 12:0 4 AM CHILD DEVELOPMENT ASSOCIATE TEACHER us Jh Poe MD POINT OF CARE TESTING Edited Performing Organization Address City/State/[facility] Co de Phone Number INTERFACE SYSTEM Refer to clinic/hospital department * (ABNORMAL) POC GLUCOSE (12/05/2007 4:51 PM CHILD DEVELOPMENT ASSOCIATE TEACHER) GLUCOSE POC 145(H) 60 - 100 mg/dL INTERFACE SYSTEM 12/05/2007 4:51 PM CHILD DEVELOPMENT ASSOCIATE TEACHER Jh Poe MD POINT OF CARE TESTING Edited Performing Organization Address City/[facility] Co de Phone Number INTERFACE SYSTEM Refer to clinic/hospital department * (ABNORMAL) POC GLUCOSE (12/05/2007 11:57 AM CHILD DEVELOPMENT ASSOCIATE TEACHER) GLUCOSE POC 260(H) 60 - 100 mg/dL INTERFACE SYSTEM 12/05/2007 11:5 7 AM CHILD DEVELOPMENT ASSOCIATE TEACHER hJ Poe MD POINT OF CARE TESTING Edited Performing Organization Address City/[facility] Co de Phone Number INTERFACE SYSTEM Refer to clinic/hospital department * (ABNORMAL) POC GLUCOSE (12/05/2007 6:38 AM CHILD DEVELOPMENT ASSOCIATE TEACHER) GLUCOSE POC 248(H) 60 - 100 mg/dL INTERFACE SYSTEM 12/05/2007 6:38 AM CHILD DEVELOPMENT ASSOCIATE TEACHER us Jh Poe MD POINT OF CARE TESTING Edited Performing Organization Address City/[facility] Co de Phone Number INTERFACE SYSTEM Refer to clinic/hospital department * (ABNORMAL) POC GLUCOSE (12/05/2007 5:28 AM CHILD DEVELOPMENT ASSOCIATE TEACHER) GLUCOSE POC 211(H) 60 - 100 mg/dL INTERFACE SYSTEM 12/05/2007 5:28 AM CHILD DEVELOPMENT ASSOCIATE TEACHER us Jh Poe MD POINT OF CARE TESTING Edited Performing Organization Address City/State/[facility] Co de Phone Number INTERFACE SYSTEM Refer to clinic/hospital department * (ABNORMAL) POC GLUCOSE (12/04/2007 11:33 PM CHILD DEVELOPMENT ASSOCIATE TEACHER) GLUCOSE POC 227(H) 60 - 100 mg/dL INTERFACE SYSTEM 12/04/2007 11:3 3 PM CHILD DEVELOPMENT ASSOCIATE TEACHER us Jh Poe MD POINT OF CARE TESTING Edited Performing Organization Address City/[facility] de Phone Number INTERFACE SYSTEM Refer to clinic/hospital department * (ABNORMAL) POC GLUCOSE (12/04/2007 4:49 PM CHILD DEVELOPMENT ASSOCIATE TEACHER) GLUCOSE POC 147(H) 60 - 100 mg/dL INTERFACE SYSTEM 12/04/2007 4:49 PM CHILD DEVELOPMENT ASSOCIATE TEACHER us Jh Poe MD POINT OF CARE TESTING Edited Performing Organization Address [facility] de Phone Number INTERFACE SYSTEM Refer to clinic/hospital department * (ABNORMAL) POC GLUCOSE (12/04/2007 10:58 AM CHILD DEVELOPMENT ASSOCIATE TEACHER) GLUCOSE POC 200(H) 60 - 100 mg/dL INTERFACE SYSTEM 12/04/2007 10:5 8 AM CHILD DEVELOPMENT ASSOCIATE TEACHER us Jh Poe MD POINT OF CARE TESTING Edited Performing Organization Address [facility] de Phone Number INTERFACE SYSTEM Refer to clinic/hospital department * (ABNORMAL) POC GLUCOSE (12/04/2007 5:13 AM CHILD DEVELOPMENT ASSOCIATE TEACHER) GLUCOSE POC 204(H) 60 - 100 mg/dL INTERFACE SYSTEM 12/04/2007 5:13 AM CHILD DEVELOPMENT ASSOCIATE TEACHER Result Latasha Poe MD POINT OF CARE TESTING Edited Performing Organization Address City/[facility] de Phone Number INTERFACE SYSTEM Refer to clinic/hospital department * (ABNORMAL) POC GLUCOSE (12/03/2007 11:37 PM CHILD DEVELOPMENT ASSOCIATE TEACHER) GLUCOSE POC 183(H) 60 - 100 mg/dL INTERFACE SYSTEM 12/03/2007 11:3 7 PM CHILD DEVELOPMENT ASSOCIATE TEACHER us Jh Poe MD POINT OF CARE TESTING Edited Performing Organization Address City/[facility] Co de Phone Number INTERFACE SYSTEM Refer to clinic/hospital department * (ABNORMAL) POC GLUCOSE (12/03/2007 5:06 PM CHILD DEVELOPMENT ASSOCIATE TEACHER) GLUCOSE POC 125(H) 60 - 100 mg/dL INTERFACE SYSTEM 12/03/2007 5:06 PM CHILD DEVELOPMENT ASSOCIATE TEACHER us Jh Poe MD POINT OF CARE TESTING Edited Performing Organization Address City/State/[facility] Co de Phone Number INTERFACE SYSTEM Refer to clinic/hospital department * (ABNORMAL) POC GLUCOSE (12/03/2007 10:54 AM CHILD DEVELOPMENT ASSOCIATE TEACHER) GLUCOSE POC 241(H) 60 - 100 mg/dL INTERFACE SYSTEM 12/03/2007 10:5 4 AM CHILD DEVELOPMENT ASSOCIATE TEACHER us Jh Poe MD POINT OF CARE TESTING Edited Performing Organization Address City/[facility] Co de Phone Number INTERFACE SYSTEM Refer to clinic/hospital department * (ABNORMAL) POC GLUCOSE (12/03/2007 5:16 AM CHILD DEVELOPMENT ASSOCIATE TEACHER) GLUCOSE POC 216(H) 60 - 100 mg/dL INTERFACE SYSTEM 12/03/2007 5:16 AM CHILD DEVELOPMENT ASSOCIATE TEACHER us Jh Poe MD POINT OF CARE TESTING Edited Performing Organization Address [facility] Co de Phone Number INTERFACE SYSTEM Refer to clinic/hospital department * (ABNORMAL) POC GLUCOSE (12/02/2007 11:21 PM CHILD DEVELOPMENT ASSOCIATE TEACHER) GLUCOSE POC 171(H) 60 - 100 mg/dL INTERFACE SYSTEM 12/02/2007 11:2 1 PM CHILD DEVELOPMENT ASSOCIATE TEACHER us Jh Poe MD POINT OF CARE TESTING Edited INTERFACE SYSTEM Refer to clinic/hospital department * ICTOTEST (12/02/2007 9:18 PM CHILD DEVELOPMENT ASSOCIATE TEACHER) ICTO Negative Negative INTERFACE SYSTEM 12/02/2007 9:18 PM CHILD DEVELOPMENT ASSOCIATE TEACHER Jh Poe MD URINE ORDERABLES Edited Performing Organization Address [facility] Phone Number INTERFACE SYSTEM Refer to clinic/hospital department * (ABNORMAL) URINALYSIS (12/02/2007 9:18 PM CHILD DEVELOPMENT ASSOCIATE TEACHER) COLOR UA Yellow Straw INTERFACE SYSTEM CLARITY [...] No No INTERFACE SYSTEM 12/02/2007 9:18 PM CHILD DEVELOPMENT ASSOCIATE TEACHER Jh Poe MD URINE ORDERABLES Edited Performing Organization Address [facility] Phone Number INTERFACE SYSTEM Refer to clinic/hospital department * (ABNORMAL) POC GLUCOSE (12/02/2007 5:21 PM CHILD DEVELOPMENT ASSOCIATE TEACHER) GLUCOSE POC 156(H) 60 - 100 mg/dL INTERFACE SYSTEM 12/02/2007 5:21 PM CHILD DEVELOPMENT ASSOCIATE TEACHER Jh Poe MD POINT OF CARE TESTING Edited Performing Organization Address [facility] Phone Number INTERFACE SYSTEM Refer to clinic/hospital department * (ABNORMAL) POC GLUCOSE (12/02/2007 11:17 AM CHILD DEVELOPMENT ASSOCIATE TEACHER) GLUCOSE POC 206(H) 60 - 100 mg/dL INTERFACE SYSTEM 12/02/2007 11:1 7 AM CHILD DEVELOPMENT ASSOCIATE TEACHER Jh Poe MD POINT OF CARE TESTING Edited Performing Organization Address [facility] de Phone Number INTERFACE SYSTEM Refer to clinic/hospital department * (ABNORMAL) POC GLUCOSE (12/02/2007 8:37 AM CHILD DEVELOPMENT ASSOCIATE TEACHER) GLUCOSE POC 210(H) 60 - 100 mg/dL INTERFACE SYSTEM 12/02/2007 8:37 AM CHILD DEVELOPMENT ASSOCIATE TEACHER us Jh Poe MD POINT OF CARE TESTING Edited Performing Organization Address City/[facility] de Phone Number INTERFACE SYSTEM Refer to clinic/hospital department * (ABNORMAL) POC GLUCOSE (12/02/2007 5:37 AM CHILD DEVELOPMENT ASSOCIATE TEACHER) GLUCOSE POC 239(H) 60 - 100 mg/dL INTERFACE SYSTEM 12/02/2007 5:37 AM CHILD DEVELOPMENT ASSOCIATE TEACHER us Jh Poe MD POINT OF CARE TESTING Edited Performing Organization Address [facility] de Phone Number INTERFACE SYSTEM Refer to clinic/hospital department * (ABNORMAL) POC GLUCOSE (12/01/2007 11:57 PM CHILD DEVELOPMENT ASSOCIATE TEACHER) GLUCOSE POC 180(H) 60 - 100 mg/dL INTERFACE SYSTEM 12/01/2007 11:5 7 PM CHILD DEVELOPMENT ASSOCIATE TEACHER us Jh Peo MD POINT OF CARE TESTING Edited Performing Organization Address [facility] de Phone Number INTERFACE SYSTEM Refer to clinic/hospital department * (ABNORMAL) POC GLUCOSE (12/01/2007 4:53 PM CHILD DEVELOPMENT ASSOCIATE TEACHER) GLUCOSE POC 186(H) 60 - 100 mg/dL INTERFACE SYSTEM COMMENT POC Follow Protocol INTERFACE SYSTEM 12/01/2007 4:53 PM CHILD DEVELOPMENT ASSOCIATE TEACHER us Jh Poe MD POINT OF CARE TESTING Edited Performing Organization Address [facility] de Phone Number INTERFACE SYSTEM Refer to clinic/hospital department * (ABNORMAL) POC GLUCOSE (12/01/2007 10:48 AM CHILD DEVELOPMENT ASSOCIATE TEACHER) GLUCOSE POC 238(H) 60 - 100 mg/dL INTERFACE SYSTEM COMMENT POC Follow Protocol INTERFACE SYSTEM 12/01/2007 10:4 8 AM CHILD DEVELOPMENT ASSOCIATE TEACHER us Jh Poe MD POINT OF CARE TESTING Edited Performing Organization Address City/[facility]/ZIP Co de Phone Number INTERFACE SYSTEM Refer to clinic/hospital department * (ABNORMAL) POC GLUCOSE (12/01/2007 5:37 AM CHILD DEVELOPMENT ASSOCIATE TEACHER) GLUCOSE POC 212(H) 60 - 100 mg/dL INTERFACE SYSTEM 12/01/2007 5:37 AM CHILD DEVELOPMENT ASSOCIATE TEACHER Result [facility] Jh Poe MD POINT OF CARE TESTING Edited Performing Organization Address [facility] Phone Number INTERFACE SYSTEM Refer to clinic/hospital department * (ABNORMAL) URINALYSIS MICROSCOPY ONLY (12/01/2007 3:37 AM CHILD DEVELOPMENT ASSOCIATE TEACHER) WBC URINE None Seen 0 - 2 INTERFACE SYSTEM RBC UA 0-2 0 - 2 INTERFACE SYSTEM HYALINE CAST 3-5(A) 0 - 2 INTERFA CE SYSTEM BACTERIA UA None Seen None Seen INTERFAC E SYSTEM 12/01/2007 3:37 AM CHILD DEVELOPMENT ASSOCIATE TEACHER us Jh Poe MD URINE ORDERABLES Edited Performing Organization Address [facility] Phone Number INTERFACE SYSTEM Refer to clinic/hospital department * ICTOTEST (12/01/2007 3:37 AM CHILD DEVELOPMENT ASSOCIATE TEACHER) ICTO Negative Negative INTERFACE SYSTEM 12/01/2007 3:37 AM CHILD DEVELOPMENT ASSOCIATE TEACHER us Jh Poe MD URINE ORDERABLES Edited Performing Organization Address [facility] Phone Number INTERFACE SYSTEM Refer to clinic/hospital department * (ABNORMAL) ACETONE QUALITATIVE, URINE (12/01/2007 3:37 AM CHILD DEVELOPMENT ASSOCIATE TEACHER) KETONES UA Moderate(A ) Negative INTERFACE SYSTEM 12/01/2007 3:37 AM CHILD DEVELOPMENT ASSOCIATE TEACHER us Jh Poe MD URINE ORDERABLES Edited Performing Organization Address [facility] de Phone Number INTERFACE SYSTEM Refer to clinic/hospital department * (ABNORMAL) GLUCOSE URINALYSIS, QUALITATIVE (12/01/2007 3:37 AM CHILD DEVELOPMENT ASSOCIATE TEACHER) GLUCOSE, URINE 3000(A) Negative INTER FACE SYSTEM 12/01/2007 3:37 AM CHILD DEVELOPMENT ASSOCIATE TEACHER Jh Poe MD URINE ORDERABLES Edited Performing Organization Address [facility] Phone Number INTERFACE SYSTEM Refer to clinic/hospital department * (ABNORMAL) URINALYSIS (12/01/2007 3:37 AM CHILD DEVELOPMENT ASSOCIATE TEACHER) COLOR UA Yellow Straw INTERFACE SYSTEM CLARITY [...] Yes(A) No INTERFACE SYSTEM 12/01/2007 3:37 AM CHILD DEVELOPMENT ASSOCIATE TEACHER Jh Poe MD URINE ORDERABLES Edited Performing Organization Address [facility] Phone Number INTERFACE SYSTEM Refer to clinic/hospital department * (ABNORMAL) POC GLUCOSE (11/30/2007 11:50 PM CHILD DEVELOPMENT ASSOCIATE TEACHER) GLUCOSE POC 247(H) 60 - 100 mg/dL INTERFACE SYSTEM 11/30/2007 11:5 0 PM CHILD DEVELOPMENT ASSOCIATE TEACHER Jh Poe MD POINT OF CARE TESTING Edited Performing Organization Address [facility] Phone Number INTERFACE SYSTEM Refer to clinic/hospital department * (ABNORMAL) POC ISTAT EG 7+ (11/30/2007 7:30 PM CHILD DEVELOPMENT ASSOCIATE TEACHER) SPECIMEN TYPE Arterial INTERF STEPAN SYSTEM Comment: Test Performed By [id number] Pulse OX: 94 Hemoglobin calculated from Hematocrit [...] 1.32 mmol/l INTERFACE SYSTEM 11/30/2007 7:30 PM CHILD DEVELOPMENT ASSOCIATE TEACHER us Jh Poe MD POINT OF CARE TESTING COM Edited INTERFACE SYSTEM Refer to clinic/hospital department * (ABNORMAL) POC GLUCOSE (11/30/2007 4:48 PM CHILD DEVELOPMENT ASSOCIATE TEACHER) GLUCOSE POC 200(H) 60 - 100 mg/dL INTERFACE SYSTEM 11/30/2007 4:48 PM CHILD DEVELOPMENT ASSOCIATE TEACHER us Jh Poe MD POINT OF CARE TESTING Edited INTERFACE SYSTEM Refer to clinic/hospital department * (ABNORMAL) POC GLUCOSE (11/30/2007 11:44 AM CHILD DEVELOPMENT ASSOCIATE TEACHER) GLUCOSE POC 179(H) 60 - 100 mg/dL INTERFACE SYSTEM 11/30/2007 11:4 4 AM CHILD DEVELOPMENT ASSOCIATE TEACHER us Jh Poe MD POINT OF CARE TESTING Edited INTERFACE SYSTEM Refer to clinic/hospital department * VITAMIN B12 (11/30/2007 6:15 AM CHILD DEVELOPMENT ASSOCIATE TEACHER) VITAMIN B12 813 211 - 911 pg/dL INTERFACE SYSTEM 11/30/2007 6:15 AM CHILD DEVELOPMENT ASSOCIATE TEACHER Jh Poe MD CHEMISTRY ORDERABLES Edited Performing Organization Address [facility] Phone Number INTERFACE SYSTEM Refer to clinic/hospital department * (ABNORMAL) COMPREHENSIVE METABOLIC PANEL (11/30/2007 6:15 AM CHILD DEVELOPMENT ASSOCIATE TEACHER) BUN 9 9 - 20 mg/dL INTERFACE [...] 295 mOsm/Kg INTERFACE SYSTEM 11/30/2007 6:15 AM CHILD DEVELOPMENT ASSOCIATE TEACHER Jh Poe MD CHEMISTRY ORDERABLES Edited Performing Organization Address [facility] Phone Number INTERFACE SYSTEM Refer to clinic/hospital department * (ABNORMAL) CBC WITH DIFFERENTIAL (11/30/2007 6:15 AM CHILD DEVELOPMENT ASSOCIATE TEACHER) WBC 5.6 4.8 - 10.8 K/ul INTERFACE [...] 0.2 K/ul INTERFACE SYSTEM 11/30/2007 6:15 AM CHILD DEVELOPMENT ASSOCIATE TEACHER Jh Poe MD HEMATOLOGY ORDERABLES Edited Performing Organization Address City/[facility]/ZIP Co de Phone Number INTERFACE SYSTEM Refer to clinic/hospital department * (ABNORMAL) POC GLUCOSE (11/30/2007 5:36 AM CHILD DEVELOPMENT ASSOCIATE TEACHER) GLUCOSE POC 157(H) 60 - 100 mg/dL INTERFACE SYSTEM 11/30/2007 5:36 AM CHILD DEVELOPMENT ASSOCIATE TEACHER Jh Poe MD POINT OF CARE TESTING Edited INTERFACE SYSTEM Refer to clinic/hospital department * (ABNORMAL) POC GLUCOSE (11/29/2007 11:59 PM CHILD DEVELOPMENT ASSOCIATE TEACHER) GLUCOSE POC 196(H) 60 - 100 mg/dL INTERFACE SYSTEM COMMENT POC Notify R.N INTERFA CE SYSTEM 11/29/2007 11:5 9 PM CHILD DEVELOPMENT ASSOCIATE TEACHER Jh Poe MD POINT OF CARE TESTING Edited INTERFACE SYSTEM Refer to clinic/hospital department * XR HIP 2+ VW LEFT (11/29/2007 7:13 PM CHILD DEVELOPMENT ASSOCIATE TEACHER) Anatomical Region Laterality Modality Lower Extremity Left Other 11/29/2007 7:13 PM CHILD DEVELOPMENT ASSOCIATE TEACHER Narrative 01/02/2009 4:39 AM CHILD DEVELOPMENT ASSOCIATE TEACHER LEFT HIP AND PELVIS: 12/18/2007 CLINICAL INFORMATION: [...] Encounter for long-term (current) use of insulin ([facility]) Encounter for long-term (current) use [...] institution documented in this encounter Care Teams Coat Presser Relationship Specialty Start Date End Date Jaylene Mccoy DO PCP - General Family Practice 02/08/15 documented as of this encounter
--- OUTSIDE RECORDS SUMMARY | 2025-05-29 12:28 | XMS_ITS | Encounter Summary ---
Author Organization [facility] Address [address] [place] [address] Care Team Providers Care Decoration Checker Name Role Phone Jaylene Mccoy DO Primary Care Provider [phone] Encounter Details Date Type Department Care Team (Late st Contact Info) Description 06/07/2015 Ancillary Orders [facility] Admitting [address] [place] [id number] Yo Hunt, DPMar [address] [place] [address] Hammer toe (Primary Dx) Social History Tobacco Use Types Packs/Day Years Used Date Smoking Tobacco: Every Day Cigarettes Alcohol Use Standard Drinks/Week Comments Yes 0 (1 standard drink = 0.6 oz pur e alcohol) rarely Sex and Gender Information Value Date Recorded Sex Assigned at Not on file Legal Sex 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
--- OUTSIDE RECORDS SUMMARY | 2025-05-29 12:28 | XMS_ITS | Encounter Summary ---
Author Organization 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
--- OUTSIDE RECORDS SUMMARY | 2025-05-29 12:28 | XMS_ITS | Data Portability ---
Author Organization [facility] Alli Gusman, [facility] Address [address] [place] [id number] Assessment No assessment recorded. Plan of Treatment [...] By Organization Details Last Modified Time 01/24/2025 [id number] Records reviewed . Fall at home resulted in left hip fracture, requiring surgical intervention. Did well post-op, hemoglobin 12 at d/c. At SNF for therapy. Pain controlled, sugars good. Labs on Wednesday, f/u 1 week. [email or web address] Not available 01/24/2025 14:27:04 01/31/2025 [id number] c/o constipation . Will give enema today, start miralax daily and stop norco. [email or web address] Not available 01/31/2025 12:44:41 02/14/2025 [id number] c/o urinary frequency and incontinence, will get UA(if negative, consider starting finasteride). Schedule labs. c/o left leg pain, will give hydrocodone 5/325 bid prn. [email or web address] Not available 02/14/2025 15:59:17 Reason for Referral None Reported. Problems Name Problem SNOMED Code Status Onset Date Resolution Date Notes Provider Name and Address Organization Details Recorded Time Chronic pain 05755409 Active 2024 AIRAM bah, [place] [facility] inpatient stay within past 30 days 9974569063556 Active 2024 AIRAM bah [facility], LMary Jo 5 14:21:49 Uncontroll ed type 2 diabetes mellitus 824850037 Active 2024 AIRAM bah [facility], L.L.CKeira 5 14:25:45 Fracture of neck of femur 6952169 [facility] 12:24:50 Problem Notes None [...] Address Organization Details Last Updated DateTime 5 35651.9 6 g 22 kg/m2 182.88 cm 72 /min 20 /min 98.2 [degF] 98 % 98 % 124/76.99 mm[Hg] [facility] 5 14:13:30 Date Recorded Body height Body mass index (BMI) Body weight Heart rate Respiratory rate Body temperature Oxygen saturation Oxygen saturation in Arterial blood by Pulse oximetry Systolic And Diastolic Provider Name and Address Organization Details Last Updated DateTime 5 182.88 cm 21.4 kg/m2 89788.5 9 g 85 /min 18 /min 98.4 [degF] 95 % 95 % 110/58 mm[Hg] [facility] 5 12:20:42 Date Recorded Body height Body mass index (BMI) Body weight Heart rate Respiratory rate Body temperature Oxygen saturation Oxygen saturation in Arterial blood by Pulse oximetry Systolic And Diastolic Provider Name and Address Organization Details Last Updated DateTime 5 182.88 cm 21.6 kg/m2 75680.1 9 g 70 /min 16 /min 97.7 [degF] 93 % 93 % 90/66 mm[Hg] AIRAM PARKER [facility], KeiraLDana 15:56:41 Social History None recorded. Functional Status None recorded. Mental Status None recorded. Family History Nothing Reported. Medical History No medical history recorded. Past Encounters Encounter ID Performer Location Encounter Start Date Encounter Closed Date Diagnosis/Indication Diagnosis SNOMED-CT Code Diagnosis ICD10 Code Diagnosis Note [id number] Obie Jean Carlos [facility] ([facility]) [address] [place] [address] 01/24/2025 08:16:14 01/29/2025 15:46:17 Hospital inpatient stay within past 30 days 8721630991 106 Z76.89 Fracture o f neck of femur 0248703 S72.002D Uncontroll ed type 2 diabetes mellitus 589106408 E11.65 [id number] Obie Evangelista DO [facility] ([facility]) [address] [place] [address] 01/31/2025 07:50:01 02/06/2025 06:24:41 Uncontrolled type 2 diabetes mellitus 649249762 E11.65 Chronic pain 40581623 G8 9.29 Fracture o f neck of femur 0234661 S72.002D left [id number] Obie DO Jean Carlos [facility] ([facility]) [address] [place] [address] 02/14/2025 07:55:37 02/19/2025 14:59:45 Uncontrolled type 2 diabetes mellitus 052850115 E11.65 Fracture o f neck of femur 4307187 S72.002D left Increased frequency of urination 191096925 R35.0 Health Concerns Section Related Observation LastModified by Organization Detai ls LastModified Time None Recorded Concern Status LastModified by Organization Details LastModified Time None Recorded Advance Directives Directive None Recorded Payers Insurance Date Sequence Insurance Name Policy Number Policy Capps Covered Member ID Capps Member ID Guarantor Name 02/19/2025 1 [place] DVANTAGE - PPO) [id number] Mariaelena Treviño [id number] Mariaelena Treviño 02/13/2025 2 [place] Mariaelena Treviño [id number] Mariaelena Treviño 02/13/2025 [place] [facility] Mariaelena Treviño [id number] Mariaelena Treviño Notes Date Note Type Note Provider Name and Address Organization Details Recorded Time 01/24/2025 text/html DiabetesReported bypatient.Duration:chr onic Control:usually well controlled Compliance:compliant with medications Obie Evangelista DO [address] [place] [address], [phone], [facility], DilanLKeiraCKeira 01/28/2025 17:14:15 01/31/2025 text/html DiabetesReported bypatient.Duration:chr onic Control:usually well controlled Compliance:compliant with medications Obie Evangelista DO [address] [place] [address], [phone], [facility], DilanLDana 02/05/2025 18:45:14 02/14/2025 text/html DiabetesReported bypatient.Duration:chr onic Control:usually well controlled Compliance:compliant with medications Obie Evangelista DO [address] [place] [address], [phone], [facility], LKeiraLKeiraCKeira 02/18/2025 14:54:57
[2025-05-29 12:29] VITALS: PULSE 95; RESP 16; TEMP 36.7; O2SAT 96
--- OUTSIDE RECORDS SUMMARY | 2025-05-29 12:29 | XMS_ITS | Patient Health Record ---
Author Organization [facility] Address [address] [place], [place] [id number] Care Team Providers Care Cut Off Tender Glass Name Role Phone Aishwarya Gonzalez Primary Care Provider Unavailab luana Burks MD, Tyrone Unavailable [phone] Gross HYDRAULIC OIL TOOL OPERATOR, DJ Unavailable Unavailable Basil CERRATOPCheri Unavailable [phone] Allergies No Known Allergies Results Component Value Reference Range Notes Saliva Swab Toxicology Scree n Reviewed date:01/04/2025 07:41:24 AM Interpretation:See notes Performing Lab: Notes/Report: See notes Saliva Swab Toxicology Scree n Reviewed date:01/04/2025 07:41:24 AM Interpretation:See notes Performing Lab: Notes/Report: See notes Embedded PDF Reviewed date:11/27/2024 07:42:39 AM Interpretation: Performing Lab: Notes/Report: ab Director: Lucia Cardoso MD, CLIA ID# [id number] [place], [address] [address] [employer] [facility] [address], [place] [address], , L [employer] Results Reviewed date:11/27/2024 07:42:31 AM Interpretation: Performing Lab:[id number] [place], [address] [address] [employer] [facility] [id number] Lucia Cardoso MD Notes/Report: [place], [address] [address] [employer] [facility] [address], [place] [address], , L ab Director: Lucia Cardoso MD, CLIA ID# [id number] OPIATES SCREEN positive 40 ng/mL Codeine negative [...] 5 ng/mL Tramadol Quantification negative 5 ng/mL R-Tjegtnfgh-Lsokctot Quantification negative 5 ng/ mL BENZODIAZEPINES SCREEN [...] W/U Status Risk Notes Problem Solitary sacroiliitis (822049711) Sacroiliitis, not elsewhere classified (M46.1) Active confirmed Problem Lumbosacral spondylosis without myelopathy (23206579) Spondylosis without myelopathy or radiculopathy, lumbar region (M47.816) Active confirmed Problem High risk drug monitoring status (646727631) prison (current) use of opiate analgesic (Z79.891) Active confirmed Problem Hypersomnia (74883690) Hypersomnia, unspecified (G47.10) Active confirmed Problem Chronic pain (89057173) Other chronic pain (G89.29) Active confirmed Problem Acquired spondylolisthesis (818824339) Spondylolisthesis , lumbar region (M43.16) Active confirmed Problem 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 disc disorder (005686406099428) Intervertebral disc disorders with radiculopathy, lumbar region (M51.16) Active confirmed Problem Long-term current use of drug therapy (993120108) Other intermediate accountant (current) drug therapy (Z79.899) Active confirmed Problem Neurogenic claudication (687105137) Spinal stenosis, lumbar region with neurogenic claudication (M48.062) Active confirmed Problem Low back pain (101268645) Low back pain, unspecified (M54.50) Active confirmed Problem Pain in lumbar spine (797549765) Vertebrogenic low back pain (M54.51) Active confirmed Vital Signs Temperature 98.0 degrees Fahrenheit 11/22/2024 Oximetry 96 % 11/22/2024 Blood pressure diastolic 81 mm Hg 11/22/2024 Height 72 in 11/22/2024 Blood pressure systolic 132 mm Hg 11/22/2024 Weight 163 lbs 11/22/2024 BMI 22.1 kg/m2 11/22/2024 Encounters Encounter Location Date Provider Diagnosis [facility] [address] [place], [place] [id number] 07/18/2024 Cheri Gracia Vertebrogenic low ba ck pain M54.51 ; Other chronic pain G89.29 ; Spinal stenosis, lumbar region with neurogenic claudication M48.062 and Hypersomnia, unspecified G47.10 [facility] [place] [address] [place], [place] [id number] 09/12/2024 Tyrone Mullerelodia Vertebrogenic low ba ck pain M54.51 ; Other chronic pain G89.29 ; Spinal stenosis, lumbar region with neurogenic claudication M48.062 and Hypersomnia, unspecified G47.10 [facility] [facility] [address] [place], [place] [id number] 11/22/2024 Tyrone Burks Vertebrogenic low ba ck pain M54.51 ; Other chronic pain G89.29 ; Spinal stenosis, lumbar region with neurogenic claudication M48.062 ; Hypersomnia, unspecified G47.10 and 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 Plan to continue oral opioid medication management. 09/12/2024 Vertebrogenic low back pain (ICD-10 - M54.51) Chronic axial lumbosacral spine pain. 11/22/2024 Vertebrogenic low back pain (ICD-10 - M54.51) Chronic axial lumbosacral spine pain. 07/18/2024 Vertebrogenic low back pain (ICD-10 - M54.51) Chronic axial lumbosacral spine pain. 07/18/2024 Other chronic pain (ICD-10 - G89.29) Patient reports that taking his pain medication allows him to spend more time on his feet. Plan to continue oral opioid medication management. 07/18/2024 Spinal stenosis, lumbar region with neurogenic claudication (ICD-10 - M48.062) Patient reports some benefit with use of gabapentin for his BLE symptoms. Plan to continue. 11/22/2024 Other chronic pain (ICD-10 - G89.29) Patient reports that taking his pain medication allows him to complete light chores. Plan to continue oral opioid medication management. 09/12/2024 Spinal stenosis, lumbar region with neurogenic claudication (ICD-10 - M48.062) Patient reports some benefit with use of gabapentin for his lower extremity symptoms. Plan to continue. 09/12/2024 Hypersomnia, unspecified (ICD-10 - G47.10) Plan to continue to restrict opioid use in relation to sleep for safety concerns. 11/22/2024 Spinal stenosis, lumbar region with neurogenic claudication (ICD-10 - M48.062) Patient reports some benefit with use of gabapentin for his lower extremity symptoms. Plan to continue. 07/18/2024 Hypersomnia, unspecified (ICD-10 - G47.10) Plan to continue to restrict opioid use in relation to sleep for safety concerns. 11/22/2024 Hypersomnia, unspecified (ICD-10 - G47.10) Plan to continue to restrict opioid use in relation to sleep for safety concerns. 11/22/2024 prison (current) use of opiate analgesic (ICD-10 - [...] End Date BCBS MC[employer] ADVANTAGE [address] [place] [address] [id number] MOMCRWP 0 Mariaelena Treviño Self - patient is the insured [place] [address] [place] [id number] Mariaelena Treviño Self - patient is the [...] great toe Knee replacement, left, performed at [facility] by Dr. Padron, 2018 Angioplasty with placement o f stent, left leg, performed at [facility] by Dr. Contreras, 06/2024 Hospitalization History Reason Date(Month/Year) Stroke, treated at [facility] in [place], [place], 2007
--- OUTSIDE RECORDS SUMMARY | 2025-05-29 12:29 | XMS_ITS | Encounter Summary ---
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 Gender Identity Not on file Sexual Orientation Not on file documented as of this encounter Plan of Treatment Not on file documented as of this encounter Procedures Procedure Name Priority Date/Time Associated Diagnosis Comments FLOW CYTOMETRY REPORT Routine 10/23/2008 10:00 AM SUPERVISOR LEAF SPRING FABRICATION PATHOLOGY Routine 10/22/2008 9:12 AM SUPERVISOR LEAF [employer]ING FABRICATION documented in this encounter Results * FLOW CYTOMETRY PANEL (10/23/2008 10:00 AM SUPERVISOR LEAF SPRING FABRICATION) LEUKEMIA/LYMPHOMA EVALUATION Lymph Node [facility] CLL COMMENTS Specimen: Lymph node ([id number]) Analysis: A lymphocyte screen was performed, and showed scant lymphocytes. These showed no aberrant CD5/CD19 coexpression, and no evidence of clonal kappa or lambda light chain expression. Interpretation : Negative lymphocyte screening study. No clonal B cell population identified. Scant lymphocytes present. Interpreted by: Kimi Damon. [facility] Comment: This test was developed and its performance characteristics determined by [facility]. It has not been [...] LYMPH NODE / Unknown 10/23/2008 10:00 AM SUPERVISOR LEAF SPRING FABRICATION 10/23/2008 11:15 AM SUPERVISOR LEAF SPRING FABRICATION Ludwig Gerardo Jania DO PATHOLOGY/CYTOLOGY ORDERABLES Final Result INTERFACE SYSTEM Refer to clinic/hospital department [facility] CLIA# [id number] [address] [place] [address] * PATHOLOGY (10/22/2008 9:12 AM SUPERVISOR LEAF SPRING FABRICATION) PATHOLOGY/CYT OLOGY REPORT [facility] Anatomic Pathology Dept [address] [place] [address] Patient: MARIAELENA TREVIÑO Accn No: [id number] Collected: 10/22/2008 9:12:00 AM SURGICAL PATHOLOGY FINAL [...] A1-A2. DLS/TKB INTERFACE SYSTEM 10/22/2008 9:12 AM SUPERVISOR LEAF SPRING FABRICATION us Ludwig Dykes DO PATHOLOGY/CYTOLOGY ORDERABLES Final Result INTERFACE SYSTEM Refer to clinic/hospital department documented in this encounter Visit Diagnoses Not on filedocumented in this encounter Care Teams Contracts Director Relationship Specialty Start Date End Date Jaylene Mccoy DO PCP - General Family Practice 02/08/15 documented as of this encounter
--- OUTSIDE RECORDS SUMMARY | 2025-05-29 12:29 | XMS_ITS | Clinical Summary ---
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 GRADER Gender Identity Not on file Sexual Orientation [...] Screening 07/20/2026 Medical Devices Implanted Type Area Diesel Scoop Operator Device Identifier Shelf Expiration Date Model / Serial / Lot Lens Io Bi-Aspheric Softechd+20.75 - [id number] Implanted:Qty: 1 on 04/23/2021 by John Day MD at [facility] Right: Eye [employer] 12/02/2022 SOFTECHD+20 .75 / [id number] / Procedures Procedure Name Priority Date/Time Associated Diagnosis Comments LDL CHOLESTEROL, DIRECT Routine 06/10/2012 9:41 AM CDT Hyperlipidemia HEMOGLOBIN A1C Routine 06/10/2012 9:41 AM CDT DM w/o complication type I (CMS/HCC) MICROALBUMIN/CREATI NINE RATIO, RANDOM UR Routine 12/23/2009 9:32 AM GRAIN GRADER Chronic Airway Obstruction, not Elsewhere Classified (CMS/HCC) from Last 3 Months or Most Recently Relevant to Health Maintenance Results * LDL CHOLESTEROL, DIRECT (06/10/2012 9:41 AM CDT) LDL CHOLESTEROL, DIRECT 100 58 - 100 MG/DL [facility] Comment: DIRECT LDL REFERENCE: < 100 Optimal 100 - 129 Near Optimal 130 - 159 Borderline High > 160 High Risk Blood specimen (specimen) 06/10/2012 9:41 AM CDT 06/10/2012 9:42 AM CDT us Jefferson Bhakta DO CHEMISTRY ORDERABLES Final Resu lt [facility] CLIA# [id number] [address] [place] [address] * HEMOGLOBIN A1C (06/10/2012 9:41 AM CDT) HEMOGLOBIN A1C 6.0 4.0 - 6.0 % [facility] Comment: This test was performed on a Novelo II instrument using HPLC methodology. Blood specimen (specimen) 06/10/2012 9:41 AM CDT 06/10/2012 9:42 AM CDT Jefferson Bhakta DO CHEMISTRY ORDERABLES Final Resu lt Performing Organization Address [facility] de Phone Number [facility] CLIA# [id number] [address] [place] [address] * MICROALBUMIN/CREATININE RATIO, RANDOM UR (12/23/2009 9:32 AM GRAIN GRADER) MICROALBUMIN URINE 2.0 MG/DL [facility] Creatinine, Urine 66 MG/DL [facility] MICROALBUMIN/CREA T RATIO, UR 30.3 MCG/MG CREAT. [facility] Comment: NORMAL: <30 MCG/MG CREAT MICROALBUMINURIA: 30-300 MCG/MG CREAT CLINICAL ALBUMINURIA: >300 MCG/MG CREAT Blood specimen (specimen) 12/23/2009 9:32 AM GRAIN GRADER 12/23/2009 9:33 AM GRAIN GRADER Jefferson Bhakta DO URINE ORDERABLES Final Result Performing Organization Address [facility] de Phone Number INTERFACE SYSTEM Refer to clinic/hospital department [facility] CLIA# [id number] [address] [place] [address] from Last 3 Months or Most Recently Relevant to Health Maintenance Insurance MEDICAID [facility] Care Teams Component Inspector Relationship Specialty Start Date End Date Jaylene Mccoy DO PCP - General Family Practice 02/08/15
--- OUTSIDE RECORDS SUMMARY | 2025-05-29 12:29 | XMS_ITS | Encounter Summary ---
Author Organization [facility] Address [address] [facility] Attn: Epic Prelude ADT [place] [address] Care Team Providers Care Wet Cotton Feeder Name Role Phone Jaylene Mccoy DO Primary Care Provider [phone] Encounter Details Date Type Department Care Team (Late st Contact Info) Description 06/11/2008 Outpatient Historical Ludwig Dykes DO NO ADDRESS ON FILE Social History Tobacco Use Types Packs/Day Years Used Date Smoking Tobacco: Never Assessed Sex and Gender Information Value Date Recorded Sex Assigned at Not on file Legal Sex Male 6:04 AM SAMPLE MAKER HAND Gender Identity Not on file Sexual Orientation Not on file documented as of this encounter Plan of Treatment Not on file documented as of this encounter Procedures Procedure Name Priority Date/Time Associated Diagnosis Comments PATHOLOGY Routine 06/11/2008 8:38 AM CDT documented in this encounter Results * PATHOLOGY (06/11/2008 8:38 AM CDT) PATHOLOGY/CYT OLOGY REPORT [facility] Path[facility] Dept [address] [place] [place] [address] [address] Patient: MARIAELENA TREVIÑO Accn No: [id number] Collected: 06/11/2008 8:38:00 AM SURGICAL PATHOLOGY FINAL [...] on filedocumented in this encounter Care Teams Wet Cotton Feeder Relationship Specialty Start Date End Date Jaylene Mccoy DO PCP - General Family Practice 02/08/15 documented as of this encounter
--- NOTE | 2025-05-29 12:37 | CT_ITS ---
WS: [id number] CT HEAD NONCONTRAST HISTORY: Dizziness TECHNIQUE: Contiguous axial imaging performed through the brain. Bone and soft tissue windows. Sagittal and coronal reformats reviewed. All CT scans at [facility] use at least one of these dose optimization techniques: automated exposure control; mA and/or kV adjustment per patient size (includes targeted exams where dose is matched to clinical indication); or iterative reconstruction. DLP: 1065.24 mGy.cm COMPARISON: 05/21/2025 No acute intracranial hemorrhage, midline shift or mass effect. Large remote infarct with encephalomalacia involving the RIGHT MCA territory. Additional mild small vessel disease surrounding the ventricles. Lacunar infarct in the posterior limb RIGHT internal capsule. Ventricles: Mild ventriculomegaly. No inferior displacement of the cerebellar tonsils. Paranasal sinuses: Complete opacification of the LEFT sphenoid sinus. Mildly inspissated material from chronic sinus disease, similar to prior studies. Mastoid air cells: Well pneumatized. Calvarium and scalp: Skull is intact with no soft tissue edema or swelling. CT/CT head wo con* [id number] IMPRESSION: 1. No acute intracranial hemorrhage or edema. 2. Remote RIGHT MCA territory infarct with encephalomalacia. 3. Small vessel disease is stable.
[2025-05-29 12:39] VITALS: BP 92/56
--- NOTE | 2025-05-29 12:43 | W.ED.GENADLT ---
HPI - General Adult General: Chief complaint: General Medical Stated complaint: n/v, dizzy, confusion, weakness Time Seen by Provider: 05/29/25 12:43 History of Present Illness: 70-year-old male presents to the emergency room with nausea vomiting dizziness some confusion. Recently hospitalized for left leg wound seems to be worsening per the family. Previous hospital notes reviewed patient was discharged home on levofloxacin and linezolid. 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 They present today because he has been seeming lightheaded dizzy not eating as well. He has no specific complaints. Associated symptoms: Deny chest pain, dyspnea or rash Related Data Home Medications ?Medication ?Instructions ?Recorded ?Confirmed hydrocodone 10 mg-acetaminophen 1 tab PO Q8H PRN Pain 03/21/24 05/29/25 325 mg tablet metformin 1,000 mg tablet 1,000 mg PO BID 01/08/25 05/29/25 gabapentin 400 mg capsule 400 mg PO Q12H 04/06/25 05/29/25 tizanidine 4 mg tablet 4 mg PO BEDTIME PRN Muscle 04/06/25 05/29/25 Spasticity dulaglutide 3 mg/0.5 mL 3 mg SUBCUT Q7D 05/29/25 05/29/25 subcutaneous [facility] Previous Rx's ?Medication ?Instructions ?Recorded blood sugar diagnostic #100 ea 10/24/24 lancets #200 ea 10/24/24 aspirin 81 mg tablet,delayed 81 mg PO DAILY #90 tabs 04/10/25 release atorvastatin 20 mg tablet 20 mg PO QPM #90 tabs 05/02/25 clopidogrel 75 mg tablet 75 mg PO DAILY #90 tabs 05/02/25 memantine 10 mg tablet 10 mg PO DAILY 30 days #30 tabs 05/15/25 pantoprazole 40 mg tablet,delayed 40 mg PO DAILY #30 tabs 05/24/25 release levofloxacin 750 mg tablet 750 mg PO DAILY 7 days #7 tabs 05/25/25 linezolid 600 mg tablet 600 mg PO BID #14 tabs 05/25/25 Allergies Allergy/AdvReac Type Severity Reaction Status Date / Time No Known Allergies Allergy Verified 05/20/25 21:45 Review of Systems Const: Denies: fever(s) or chills Card: Denies: chest pain Resp: Denies: dyspnea GI: Denies: abdominal pain : Denies: dysuria, urinary frequency or urinary urgency Musc: Denies: neck pain or back pain Skin/Breast: Denies: rash PFSH ED PFSH: Medical History Mixed hyperlipidemia Memory loss of unknown cause Anemia Leg wound, left Tobacco dependence Nail deformity 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 Onychomycosis Dandruff Cellulitis of left foot Mild aortic stenosis Enrolled in chronic care management Fatigue Heart murmur Chronic instability of ankle Chronic ankle pain Prostate cancer screening Smoker unmotivated to quit Vitamin D deficiency Essential hypertension Toenail deformity Diabetic foot Encounter for long-term opiate analgesic use Opioid contract exists Long-term use of high-risk medication Chronic low back pain Surgical History S/P knee replacement LEFT KNEE REPLACEMENT 2019 Hx of toe surgery PIN PLACEMENT IN LEFT GREAT TOE Family History Other Cancer Congestive heart failure (CHF) Social History Smoking and tobacco/nicotine status: former use of tobacco/nicotine Alcohol intake: current Alcohol intake frequency: holidays/special occasions only Alcohol type: beer Substance/Drug Use: never Physical Exam Const: GENERAL APPEARANCE: cooperative ORIENTATION/CONSCIOUSNESS: Yes awake, Yes oriented to person, Yes oriented to place and Yes oriented to time HENMT: COMMON NORMALS: normocephalic, atraumatic and hearing grossly normal bilaterally HEAD & SCALP: normocephalic and atraumatic Resp: COMMON NORMALS: normal respiratory effort, No retractions, No use of accessory muscles and clear to auscultation bilaterally AUSCULTATION: clear to auscultation bilaterally Cardio: COMMON NORMALS: regular rate, regular rhythm and No murmurs present (Cardio) RATE: regular rate RHYTHM: regular rhythm GI: COMMON NORMALS: Soft to palpation and No hepatosplenomegaly present AUSCULTATION: Yes normoactive bowel sounds PALPATION: Yes Soft to palpation, No Tenderness to palpation present (GI), No Guarding due to palpation present (GI) and Yes No hepatosplenomegaly present Extremity: COMMON NORMALS: normal to inspection, capillary refill normal, no clubbing, cyanosis or edema, no calf tenderness and no pedal edema OTHER: Open wound lateral malleolus on the left. No signs of induration or active infection in the skin. Neuro: SENSORIUM/ORIENTATION: Yes oriented to person, Yes oriented to place and Yes oriented to time Skin: OTHER: Examination of wound on the lateral malleolus of the left foot well-circumscribed wound with fresh granulation bed no active Course Vital Signs: Vital signs: Vital Signs Temperature 98.1 F 05/29/25 12:29 Pulse Rate 81 05/29/25 15:00 Respiratory Rate 20 H 05/29/25 13:51 Blood Pressure 115/68 05/29/25 15:00 Pulse Oximetry 93 05/29/25 15:00 Oxygen Delivery Me thod Room Air 05/29/25 15:00 MDM - General Adult Medical Decision Making Labs and imaging reviewed from previous hospitalization as well as records. Patient discharged home on Levaquin and linezolid. There is again some concern about if he had chronic osteomyelitis they did not do any advanced imaging. Based on the plain x-ray there was a concern for developing osteomyelitis for which his antibiotics were started during his last hospitalization.. His blood cultures did not grow out any significant bacteria.Patient was given IV fluids 500 mg bolus blood pressure improved. Is no leukocytosis. CT head was negative will discharge home continue antibiotics continue to follow-up with wound care. Examination of the wound today shows the wound is healing well no signs of worsening infection Medical Records I reviewed the patient's medical records. Lab Data I reviewed the patient's lab results. 05/29/25 13:30 05/29/25 13:[address] 05/29/25 12:37 IMPRESSION: 1. No acute intracranial hemorrhage or edema. 2. Remote RIGHT MCA territory infarct with encephalomalacia. 3. Small vessel disease is stable. Laboratory Results WBC 6.77 10^3/uL (3.29-11.43) 05/29/25 13:30 RBC 4.38 10^6/uL (3.85-5.65) 05/29/25 13:30 Hgb 13.70 g/dL (11.27-16.99) 05/29/25 13:30 Hct 42.1 % (37-53) 05/29/25 13:30 MCV 96.1 fl (82-101) 05/29/25 13:30 MCH 31.3 pg (27-33) 05/29/25 13:30 MCHC 32.5 g/dL (30-55) 05/29/25 13:30 RDW 12.5 % (12.1-15.1) 05/29/25 13:30 Plt Count 263 10^3/cmm (157-399) 05/29/25 13:30 MPV 9.4 fL (7.4-10.4) 05/29/25 13:30 Neut % (Auto) 82.5 % 05/29/25 13:30 Lymph % (Auto) 11.7 % 05/29/25 13:30 [place] % (Auto) 3.5 % 05/29/25 13:30 Eos % (Auto) 0.9 % 05/29/25 13:30 Baso % (Auto) 0.4 % 05/29/25 13:30 Neut # (Auto) 5.58 10^3/uL (1.8-7.7) 05/29/25 13:30 Lymph # (Auto) 0.8 10^3/uL (0.8-4.8) 05/29/25 13:30 [place] # (Auto) 0.2 10^3/uL (0.2-0.9) 05/29/25 13:30 Eos # (Auto) 0.1 10^3/uL (0.0-0.8) 05/29/25 13:30 Baso # (Auto) 0.0 10^3/uL (0.0-0.1) 05/29/25 13:30 Nucleated RBC % (auto) 0 % 05/29/25 13:30 Nucleated RBCs # 0.0 /100WBC 05/29/25 13:30 Sodium 136 mmol/L (136-145) 05/29/25 13:30 Potassium 4.4 mmol/L (3.5-5.1) 05/29/25 13:30 Chloride 98 mmol/L (98-107) 05/29/25 13:30 Carbon Dioxide 24 mmol/L (22-29) 05/29/25 13:30 Anion Gap 18.4 (5-19) 05/29/25 13:30 BUN 16 mg/dL (8-23) 05/29/25 13:30 Creatinine 0.8 mg/dL (0.7-1.2) 05/29/25 13:30 GFR Calculation Not Reportable 05/29/25 13:30 Glucose 113 mg/dL (65-115) 05/29/25 13:30 Calculated Osmolality 284 mOsm/kg (285-295) L 05/29/25 13:30 Lactic Acid 1.5 mmol/L (0.5-2.2) 05/29/25 13:30 Calcium 9.0 mg/dL (8.5-10.5) 05/29/25 13:30 Total Bilirubin 0.8 mg/dL (0.15-1.2) 05/29/25 13:30 AST 18 U/L (0-40) 05/29/25 13:30 ALT 18 U/L (0-41) 05/29/25 13:30 Alkaline Phosphatase 104 U/L (40-130) 05/29/25 13:30 Total Protein 7.1 g/dL (6.6-8.7) 05/29/25 13:30 Albumin 3.5 g/dL (3.5-5.2) 05/29/25 13:30 Globulin 3.6 g/dL (1.3-4.6) 05/29/25 13:30 Urine Color Yellow (Yellow) 05/29/25 13:25 Urine Appearance Clear (CLEAR) 05/29/25 13:25 Urine pH 5.0 (5-7) 05/29/25 13:25 Ur Specific [place] 1.028 (1.005-1.030) 05/29/25 13:25 Urine Protein Trace (Negative) A 05/29/25 13:25 Urine Glucose (UA) Negative (Normal) 05/29/25 13:25 Urine Ketones 1+ (Negative) H 05/29/25 13:25 Urine Blood Negative (Negative) 05/29/25 13:25 Urine Nitrate Negative (Negative) 05/29/25 13:25 Urine Bilirubin Negative (Negative) 05/29/25 13:25 Urine Urobilinogen 1.0 mg/dL (Negative) 05/29/25 13:25 Ur Leukocyte Esterase Negative (Negative) 05/29/25 13:25 Urine RBC 0-2 /hpf (0-2) 05/29/25 13:25 Urine WBC 0-5 /hpf (0-5) 05/29/25 13:25 Ur Squamous Epith Cells 0-5 /hpf (0-5) 05/29/25 13:25 Amorphous Sediment Not Reportable 05/29/25 13:25 Urine Bacteria None seen /hpf (NONE) 05/29/25 13:25 Hyaline Casts 1.21 /lpf 05/29/25 13:25 All radiology interpretation(s) finalized by discharge EKG Data EKG 1: Interpretation: EKG shows sinus rhythm. Rate of 80 CA interval 166 QTc 463 there are Q waves in V1 and V2 this is unchanged from previous EKG on 05/21/2025 Computer generated interpretation: Head CT 05/29/25 12:37 IMPRESSION: 1. No acute intracranial hemorrhage or edema. 2. Remote RIGHT MCA territory infarct with encephalomalacia. 3. Small vessel disease is stable. 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 Diabetic foot ulcer associated with diabetes mellitus due to underlying condition Qualifiers: Diabetic foot ulcer location: unspecified part of foot Laterality: right Non-pressure ulcer stage: unspecified non-pressure ulcer stage Qualified Code(s): E08.621 - Diabetes mellitus due to underlying condition with foot ulcer Osteomyelitis Qualifiers: Osteomyelitis type: other chronic Osteomyelitis location: ankle Laterality: left Qualified Code(s): M86.672 - Other chronic osteomyelitis, left ankle and foot Condition: Stable Prescriptions: No Action hydrocodone-acetaminophen 10-325 mg tablet 1 tab PO Q8H PRN (Reason: Pain) clopidogrel 75 mg tablet 75 mg PO DAILY Qty: 90 2RF atorvastatin 20 mg tablet 20 mg PO QPM Qty: 90 1RF levofloxacin 750 mg tablet 750 mg PO DAILY 7 Days Qty: 7 0RF linezolid 600 mg tablet 600 mg PO BID Qty: 14 1RF (DME) lancets Misc See Rx Instructions .Route Qty: 200 2RF Rx Instructions: USE TO CHECK BLOOD SUGAR DAILY. (DME) blood sugar diagnostic Strip See Rx Instructions .Route Qty: 100 2RF Rx Instructions: USE TO CHECK BLOOD SUGAR DAILY. memantine 10 mg tablet 10 mg PO DAILY 30 Days Qty: 30 2RF tizanidine 4 mg tablet 4 mg PO BEDTIME PRN (Reason: Muscle Spasticity) gabapentin 400 mg capsule 400 mg PO Q12H aspirin 81 mg Tablet,Delayed Release (Dr/Ec) 81 mg PO DAILY Qty: 90 0RF pantoprazole 40 mg Tablet,Delayed Release (Dr/Ec) 40 mg PO DAILY Qty: 30 0RF metformin 1,000 mg tablet 1,000 mg PO BID Trulicity 3 mg/0.5 mL pen injector 3 mg SUBCUT Q7D Discharge Orders: Discharge ED (Routine); Ordered 05/29/25 Ordered By: Mauricio Gilliland Referrals: ABNER Carson, [employer] [Primary Care Provider, Family Practice] Discharge Diet: Usual diet Discharge Activity: Increase activity as tolerated Patient Instructions: Opioid Safety, Pain Management, Patient Portal & Rush Instructions Activity Restrictions/Additional Instructions: Thank you for choosing [facility] for your healthcare needs today. It is very important that you follow up as instructed or that you return to the Emergency Department should you have concerns or if your condition changes or worsens in any way. You were seen in the emergency room with complaints of generally not feeling well and feeling weak. Laboratory tests are normal I did give you some IV fluids which improved your blood pressure slightly follow-up with your primary care doctor continue the antibiotics you are given for the chronic osteomyelitis Print Language: Japanese Coding Level of Care Code ED Durable Medical Equipment Technician for Sanjay Shafer
--- NOTE | 2025-05-29 13:09 | ECG_ITS ---
[facility] Test Date: 2025-05-29 Pat Name: Mariaelena Treviño Department: Room: Gender: Male Flexo Operator: : [id number] Requested By: Mauricio Leyva Order Number: [id number] Sami MD: Kyle Contreras M.D. Measurements Intervals [place] Rate: 80 P: 85 [place]: 166 QRS: 22 QRSD: 94 T: 58 QT: 399 QTc: 463 Interpretive Statements SINUS RHYTHM WITH SINUS ARRHYTHMIA SEPTAL MYOCARDIAL INFARCTION , OF INDETERMINATE AGE [40+ ms Q WAVE IN V1/V2] Compared to ECG 05/21/2025 03:40:41 No significant changes Electronically Signed On 05-31-2025 09:05:02 CDT by Kyle Contreras M.D. [email or web address]
[2025-05-29 13:43] LABS: Hematocrit 42.1 % (37-53); Hemoglobin 13.70 g/dL (11.27-16.99); Mean Corpuscular HGB Conc 32.5 g/dL (30-55); Mean Corpuscular Hemoglobin 31.3 pg (27-33); Mean Corpuscular Volume 96.1 fl (82-101); Nucleated Red Blood Cells % 0 %; Platelet Count 263 10^3/cmm (157-399); Red Blood Count 4.38 10^6/uL (3.85-5.65); White Blood Count 6.77 10^3/uL (3.29-11.43)
[2025-05-29 13:43] LABS: Glucose Urine UA Negative (Normal); Nitrate Urine Negative (Negative); Specific Gravity, Urine 1.028 (1.005-1.030)
[2025-05-29 13:46] LABS: Add Urine Microscopic? YES
[2025-05-29 13:51] VITALS: BP 99/57; PULSE 92; RESP 20; O2SAT 96
[2025-05-29 13:57] LABS: Alanine Aminotransferase 18 U/L (0-41); Albumin Level 3.5 g/dL (3.5-5.2); Alkaline Phosphatase 104 U/L (40-130); Anion Gap 18.4 (5-19); Aspartate Amino Transferase 18 U/L (0-40); Blood Urea Nitrogen 16 mg/dL (8-23); Calcium 9.0 mg/dL (8.5-10.5); Carbon Dioxide 24 mmol/L (22-29); Chloride 98 mmol/L (98-107); Creatinine Clr Calc Pharmacy 91.3802; Globulin 3.6 g/dL (1.3-4.6); Glucose 113 mg/dL (65-115); Osmolality Calculated 284 mOsm/kg (285-295); Potassium 4.4 mmol/L (3.5-5.1); Sodium 136 mmol/L (136-145); Total Protein 7.1 g/dL (6.6-8.7)
[2025-05-29 13:58] LABS: Lactic Sepsis W/Reflex 1.5 mmol/L (0.5-2.2)
[2025-05-29 14:00] VITALS: BP 96/65; PULSE 81; O2SAT 94
[2025-05-29 15:00] VITALS: BP 115/68; PULSE 81; O2SAT 93
[2025-05-29 15:35] VITALS: BP 110/79; PULSE 82; O2SAT 95
== END 2025-05-29 15:36 | disposition home or self-care (01) ==
PROVIDERS: Emergency Provider Family Medicine; PCP Nurse Practitioner Family
DX: E11.621 Type 2 diabetes mellitus with foot ulcer (principal); L97.529 Non-pressure chronic ulcer of other part of left foot with unspecified severity; L97.322 Non-pressure chronic ulcer of left ankle with fat layer exposed; Z79.82 Long term (current) use of aspirin; Z79.02 Long term (current) use of antithrombotics/antiplatelets; Z87.891 Personal history of nicotine dependence; E78.2 Mixed hyperlipidemia
CPT/HCPCS: 36415; 70450; 80053; 81001; 83605; 85025; 87040; 93005; 96360; 99284; J7040

== ENCOUNTER → 2025-05-31 11:22 | Outpatient (BNVA) | payer MEDICARE, MEDICAID, SELFPAY | PROVIDERS: PCP Nurse Practitioner Family; Visit Provider Nurse Practitioner Family | DX: R11.10 Vomiting, unspecified (principal) | CPT/HCPCS: 87400; 87426 ==

== ENCOUNTER → 2025-06-01 09:45 | Outpatient (BNVA) | payer MEDICARE, MEDICAID, SELFPAY | PROVIDERS: PCP Nurse Practitioner Family; Visit Provider Thoracic Surgery (Cardiothoracic Vascular Surgery) | DX: E11.52 Type 2 diabetes mellitus with diabetic peripheral angiopathy with gangrene (principal); E11.622 Type 2 diabetes mellitus with other skin ulcer; L97.321 Non-pressure chronic ulcer of left ankle limited to breakdown of skin; E11.621 Type 2 diabetes mellitus with foot ulcer; L97.521 Non-pressure chronic ulcer of other part of left foot limited to breakdown of skin | CPT/HCPCS: 97597 ==

== ENCOUNTER → 2025-06-08 10:40 | Outpatient (BNVA) | payer MEDICARE, MEDICAID, SELFPAY | PROVIDERS: PCP Nurse Practitioner Family; Visit Provider Thoracic Surgery (Cardiothoracic Vascular Surgery) | DX: E11.52 Type 2 diabetes mellitus with diabetic peripheral angiopathy with gangrene (principal); E11.622 Type 2 diabetes mellitus with other skin ulcer; L97.321 Non-pressure chronic ulcer of left ankle limited to breakdown of skin; E11.621 Type 2 diabetes mellitus with foot ulcer; L97.521 Non-pressure chronic ulcer of other part of left foot limited to breakdown of skin | CPT/HCPCS: 97597; A6210 ==

== ENCOUNTER → 2025-06-11 15:15 | Outpatient (BNVA) | payer MEDICARE, MEDICAID, SELFPAY | PROVIDERS: PCP Nurse Practitioner Family; Visit Provider Internal Medicine | DX: I73.9 Peripheral vascular disease, unspecified (principal); E11.40 Type 2 diabetes mellitus with diabetic neuropathy, unspecified; Z79.85 Long-term (current) use of injectable non-insulin antidiabetic drugs; I10 Essential (primary) hypertension; Z79.02 Long term (current) use of antithrombotics/antiplatelets; Z79.82 Long term (current) use of aspirin; Z87.891 Personal history of nicotine dependence | CPT/HCPCS: 99214 ==

== ENCOUNTER → 2025-06-18 10:05 | Outpatient (BNVA) | payer MEDICARE, MEDICAID, SELFPAY | PROVIDERS: PCP Nurse Practitioner Family; Visit Provider Thoracic Surgery (Cardiothoracic Vascular Surgery) | DX: E11.52 Type 2 diabetes mellitus with diabetic peripheral angiopathy with gangrene (principal); E11.622 Type 2 diabetes mellitus with other skin ulcer; L97.321 Non-pressure chronic ulcer of left ankle limited to breakdown of skin; Z09 Encounter for follow-up examination after completed treatment for conditions other than malignant neoplasm | CPT/HCPCS: 11721; 97597; A6210 ==

== ENCOUNTER → 2025-06-22 10:17 | Outpatient (BNVA) | payer MEDICARE, MEDICAID, SELFPAY | PROVIDERS: PCP Nurse Practitioner Family; Visit Provider Thoracic Surgery (Cardiothoracic Vascular Surgery) | DX: E11.52 Type 2 diabetes mellitus with diabetic peripheral angiopathy with gangrene (principal); E11.621 Type 2 diabetes mellitus with foot ulcer; L97.321 Non-pressure chronic ulcer of left ankle limited to breakdown of skin | CPT/HCPCS: 97597; A6210 ==

== ENCOUNTER → 2025-06-29 10:46 | Outpatient (BNVA) | payer MEDICARE, MEDICAID, SELFPAY | PROVIDERS: PCP Nurse Practitioner Family; Visit Provider Thoracic Surgery (Cardiothoracic Vascular Surgery) | DX: E11.622 Type 2 diabetes mellitus with other skin ulcer (principal); L97.321 Non-pressure chronic ulcer of left ankle limited to breakdown of skin | CPT/HCPCS: 97597; A6210 ==

== ENCOUNTER → 2025-07-06 10:00 | Outpatient (BNVA) | payer MEDICARE, MEDICAID, SELFPAY | PROVIDERS: PCP Nurse Practitioner Family; Visit Provider Thoracic Surgery (Cardiothoracic Vascular Surgery) | DX: E11.52 Type 2 diabetes mellitus with diabetic peripheral angiopathy with gangrene (principal); E11.622 Type 2 diabetes mellitus with other skin ulcer; L97.321 Non-pressure chronic ulcer of left ankle limited to breakdown of skin | CPT/HCPCS: 97597 ==

== ENCOUNTER → 2025-07-13 09:12 | Outpatient (BNVA) | payer MEDICARE, MEDICAID, SELFPAY | PROVIDERS: PCP Nurse Practitioner Family; Visit Provider Thoracic Surgery (Cardiothoracic Vascular Surgery) | DX: E11.52 Type 2 diabetes mellitus with diabetic peripheral angiopathy with gangrene (principal); E11.622 Type 2 diabetes mellitus with other skin ulcer; L97.321 Non-pressure chronic ulcer of left ankle limited to breakdown of skin | CPT/HCPCS: 97597 ==

== ENCOUNTER → 2025-07-20 07:56 | Outpatient (BNVA) | payer MEDICARE, MEDICAID, SELFPAY | PROVIDERS: PCP Nurse Practitioner Family; Visit Provider Thoracic Surgery (Cardiothoracic Vascular Surgery) | DX: E11.52 Type 2 diabetes mellitus with diabetic peripheral angiopathy with gangrene (principal); E11.622 Type 2 diabetes mellitus with other skin ulcer; L97.321 Non-pressure chronic ulcer of left ankle limited to breakdown of skin | CPT/HCPCS: 97597 ==

== ENCOUNTER 2025-07-27 08:57 | Outpatient (CLI) | payer MEDICARE, MEDICAID, SELFPAY ==
[2025-07-27 09:57] LABS: Hematocrit 41.1 % (37-53); Hemoglobin 13.10 g/dL (11.27-16.99); Mean Corpuscular HGB Conc 31.9 g/dL (30-55); Mean Corpuscular Hemoglobin 30.8 pg (27-33); Mean Corpuscular Volume 96.5 fl (82-101); Nucleated Red Blood Cells % 0 %; Platelet Count 207 10^3/cmm (157-399); Red Blood Count 4.26 10^6/uL (3.85-5.65); White Blood Count 10.97 10^3/uL (3.29-11.43)
[2025-07-27 10:35] LABS: Alanine Aminotransferase 12 U/L (0-41); Albumin Level 3.9 g/dL (3.5-5.2); Alkaline Phosphatase 136 U/L (40-130); Anion Gap 15.1 (5-19); Aspartate Amino Transferase 15 U/L (0-40); Blood Urea Nitrogen 8 mg/dL (8-23); Calcium 9.2 mg/dL (8.5-10.5); Carbon Dioxide 27 mmol/L (22-29); Chloride 100 mmol/L (98-107); Globulin 3.6 g/dL (1.3-4.6); Glucose 144 mg/dL (65-115); Osmolality Calculated 287 mOsm/kg (285-295); Potassium 4.1 mmol/L (3.5-5.1); Sodium 138 mmol/L (136-145); Total Protein 7.5 g/dL (6.6-8.7)
== END 2025-07-27 08:58 | disposition home or self-care (01) ==
PROVIDERS: PCP Nurse Practitioner Family; Visit Provider Thoracic Surgery (Cardiothoracic Vascular Surgery)
DX: L89.520 Pressure ulcer of left ankle, unstageable (principal); E11.621 Type 2 diabetes mellitus with foot ulcer; L97.509 Non-pressure chronic ulcer of other part of unspecified foot with unspecified severity; I73.9 Peripheral vascular disease, unspecified
CPT/HCPCS: 36415; 80053; 85025; 85651; 86140; 87070; 87176; 87205; 97597

== ENCOUNTER 2025-07-31 07:53 | Outpatient (CLI) | payer MEDICARE, MEDICAID, SELFPAY ==
--- NOTE | 2025-07-31 08:00 | NM_ITS ---
WS: [id number] NUCLEAR MEDICINE BONE SCAN 3 phase Radiopharmaceutical: 25.6 Tc-99m MDP mCi IV Injection site: Antecubital Postinjection imaging delay: 2 hr CLINICAL INFORMATION: Worsening of L ankle wound FINDINGS: Three-phase bone scan Dynamic flow, blood pool, and delayed imaging Bone lesions: Increased blood flow blood pool and delayed bone activity about the LEFT ankle more prominent about the lateral malleolus. Findings are suspicious for osteomyelitis in the appropriate clinical setting Increased activity in the great toe LEFT foot from prior pin placement Soft tissue contours: Normal. Kidneys: Normal. Other findings: LEFT CRYSTAL with expected bony remodeling with increased activity about the femoral neck. Degenerative arthritis cervical spine and RIGHT sternoclavicular joint thoracic curve. NM/NM bone 3 phase [id number] IMPRESSION: Three-phase positive bone scan LEFT ankle worse involving the lateral malleolus suspicious for osteomyelitis
== END 2025-07-31 07:54 | disposition home or self-care (01) ==
LOC: RAD 07:55
PROVIDERS: PCP Nurse Practitioner Family; Visit Provider Thoracic Surgery (Cardiothoracic Vascular Surgery)
DX: L89.520 Pressure ulcer of left ankle, unstageable (principal); E11.621 Type 2 diabetes mellitus with foot ulcer; L97.509 Non-pressure chronic ulcer of other part of unspecified foot with unspecified severity; I73.9 Peripheral vascular disease, unspecified
CPT/HCPCS: 78315; A9561

== ENCOUNTER → 2025-08-03 09:01 | Outpatient (BNVA) | payer MEDICARE, MEDICAID, SELFPAY | PROVIDERS: PCP Nurse Practitioner Family; Visit Provider Thoracic Surgery (Cardiothoracic Vascular Surgery) | DX: E11.52 Type 2 diabetes mellitus with diabetic peripheral angiopathy with gangrene (principal); E11.622 Type 2 diabetes mellitus with other skin ulcer; L97.321 Non-pressure chronic ulcer of left ankle limited to breakdown of skin | CPT/HCPCS: 97597 ==

== ENCOUNTER 2025-08-06 09:44 | Outpatient (CLI) | payer MEDICARE, MEDICAID, SELFPAY ==
--- NOTE | 2025-08-06 10:00 | USR_ITS ---
PROCEDURE INFORMATION: Exam: US Duplex Left Lower Extremity Arteries Or Arterial Bypass Grafts Exam date and time: 08/06/2025 10:02 AM Age: 70 years old Clinical indication: Other: Ankle ulcer; Additional info: Worsening of L ankle wound TECHNIQUE: Imaging protocol: Left Real-time duplex scan of the arteries or arterial bypass grafts of the left lower extremity with 2-D batres scale, color Doppler flow and spectral waveform analysis. Images documented and saved. COMPARISON: CT angio abd aorta runof [id number] 06/01/2024 8:10 AM FINDINGS: Monophasic waveforms are present throughout the entire left leg. Atherosclerotic calcifications throughout the arterial supply to the lower extremity are observed. Other findings: Elevated flow velocity in the distal femoral artery at 245 cm/s suggest proximal stenosis. Left NATALYA equals 0.8. Normal waveforms. Dorsalis pedis artery is patent. US/CV arterial duplex [facility] [id number] IMPRESSION: 1. Stenosis of the SFA. 2. Diffuse monophasic waveforms.
== END 2025-08-06 09:45 | disposition home or self-care (01) ==
PROVIDERS: PCP Nurse Practitioner Family; Visit Provider Thoracic Surgery (Cardiothoracic Vascular Surgery)
DX: I70.202 Unspecified atherosclerosis of native arteries of extremities, left leg (principal); L89.520 Pressure ulcer of left ankle, unstageable; E11.621 Type 2 diabetes mellitus with foot ulcer; L97.509 Non-pressure chronic ulcer of other part of unspecified foot with unspecified severity
CPT/HCPCS: 93926

== ENCOUNTER → 2025-08-10 08:41 | Outpatient (BNVA) | payer MEDICARE, MEDICAID, SELFPAY | PROVIDERS: PCP Nurse Practitioner Family; Visit Provider Thoracic Surgery (Cardiothoracic Vascular Surgery) | DX: E11.52 Type 2 diabetes mellitus with diabetic peripheral angiopathy with gangrene (principal); E11.621 Type 2 diabetes mellitus with foot ulcer; L97.321 Non-pressure chronic ulcer of left ankle limited to breakdown of skin | CPT/HCPCS: 97597 ==

== ENCOUNTER → 2025-08-17 08:54 | Outpatient (BNVA) | payer MEDICARE, MEDICAID, SELFPAY | PROVIDERS: PCP Nurse Practitioner Family; Visit Provider Thoracic Surgery (Cardiothoracic Vascular Surgery) | DX: E11.52 Type 2 diabetes mellitus with diabetic peripheral angiopathy with gangrene (principal); E11.622 Type 2 diabetes mellitus with other skin ulcer; L97.321 Non-pressure chronic ulcer of left ankle limited to breakdown of skin | CPT/HCPCS: 97597 ==

== ENCOUNTER → 2025-08-24 08:58 | Outpatient (BNVA) | payer MEDICARE, MEDICAID, SELFPAY | PROVIDERS: PCP Nurse Practitioner Family; Visit Provider Thoracic Surgery (Cardiothoracic Vascular Surgery) | DX: E11.52 Type 2 diabetes mellitus with diabetic peripheral angiopathy with gangrene (principal); E11.622 Type 2 diabetes mellitus with other skin ulcer; L97.321 Non-pressure chronic ulcer of left ankle limited to breakdown of skin | CPT/HCPCS: 97597 ==

== ENCOUNTER → 2025-08-30 08:46 | Outpatient (BNVA) | payer MEDICARE, MEDICAID, SELFPAY | PROVIDERS: PCP Nurse Practitioner Family; Visit Provider Thoracic Surgery (Cardiothoracic Vascular Surgery) | DX: E11.52 Type 2 diabetes mellitus with diabetic peripheral angiopathy with gangrene (principal); E11.622 Type 2 diabetes mellitus with other skin ulcer; L97.321 Non-pressure chronic ulcer of left ankle limited to breakdown of skin | CPT/HCPCS: 97597 ==

== ENCOUNTER → 2025-09-06 08:00 | Outpatient (BNVA) | payer MEDICARE, MEDICAID, SELFPAY | PROVIDERS: PCP Nurse Practitioner Family; Visit Provider Thoracic Surgery (Cardiothoracic Vascular Surgery) | DX: E11.52 Type 2 diabetes mellitus with diabetic peripheral angiopathy with gangrene (principal); E11.622 Type 2 diabetes mellitus with other skin ulcer; L97.321 Non-pressure chronic ulcer of left ankle limited to breakdown of skin | CPT/HCPCS: 97597 ==

== ENCOUNTER → 2025-09-14 08:06 | Outpatient (BNVA) | payer MEDICARE, MEDICAID, SELFPAY | PROVIDERS: PCP Nurse Practitioner Family; Visit Provider Thoracic Surgery (Cardiothoracic Vascular Surgery) | DX: E11.52 Type 2 diabetes mellitus with diabetic peripheral angiopathy with gangrene (principal); E11.622 Type 2 diabetes mellitus with other skin ulcer; L97.321 Non-pressure chronic ulcer of left ankle limited to breakdown of skin | CPT/HCPCS: 87070; 87077; 87176; 87186; 87205; 97597; A6212 ==

== ENCOUNTER → 2025-09-18 13:23 | Outpatient (BNVA) | payer MEDICARE, MEDICAID, SELFPAY | PROVIDERS: PCP Nurse Practitioner Family; Referring Provider Thoracic Surgery (Cardiothoracic Vascular Surgery); Visit Provider Internal Medicine | DX: I73.9 Peripheral vascular disease, unspecified (principal); I10 Essential (primary) hypertension; E11.40 Type 2 diabetes mellitus with diabetic neuropathy, unspecified; Z79.85 Long-term (current) use of injectable non-insulin antidiabetic drugs; F17.210 Nicotine dependence, cigarettes, uncomplicated | CPT/HCPCS: 36415; 80048; 85025; 85610; 99214 ==

== ENCOUNTER → 2025-09-21 09:46 | Outpatient (BNVA) | payer MEDICARE, MEDICAID, SELFPAY | PROVIDERS: PCP Nurse Practitioner Family; Visit Provider Thoracic Surgery (Cardiothoracic Vascular Surgery) | DX: E11.622 Type 2 diabetes mellitus with other skin ulcer (principal); L97.321 Non-pressure chronic ulcer of left ankle limited to breakdown of skin | CPT/HCPCS: 97597; A6212 ==

== ENCOUNTER 2025-09-26 08:50 | Outpatient (CLI) | payer MEDICARE, MEDICAID, SELFPAY ==
[2025-09-26] VITALS (46 sets, daily range): BP systolic 88–189; BP diastolic 41–104; PULSE 68–106; RESP 12–32; TEMP 36.6; O2SAT 95–99; BMI 22.1
--- NOTE | 2025-09-26 09:56 | SUR.PHASEII ---
POST CATH ORDERS Orders placed. Patient awake. Advanced to cardiac diet. Fluids continued post cathat 50 ml.hr.
--- NOTE | 2025-09-26 10:00 | XACV_ITS ---
Ht: 183 cm Wt: 74 kg BSA: 1.94 m2 Any Known Allergies: No known allergies Gender: Male : 1955 Exam Type: Invasive Peripheral Vascular Procedure(s): Procedure Description: Peripheral Cath Diagnostic Procedure Procedure Description: Abdominal aortic angiography Procedure Description: Lower extremities' angiography Procedure Description: Peripheral vascular Intervention Procedure Description: PV Balloon Exam Priority: Routine Abdominal Diagnostic Findings Distal abdominal aorta is patent. Lower Extremity Diagnostic Findings INDICATION: Non-healing wound of left lower extremity/ Severe peripheral artery disease. Left lower extremity findings: Left common iliac artery is patent. Left external iliac artery has severe 80 to 90% stenosis. Left common femoral artery is patent. Left profunda artery is patent. Left SFA has severe 90% proximal stenosis. Distal SFA has severe 95% stenosis. Below the knee, anterior tibial artery is occluded. Has mild-moderate diffuse disease of peroneal artery and posterior tibial artery however both are patent.. Left External Iliac Artery: 80-90% stenosis. Left Proximal Superficial Femoral Artery: 90% stenosis. Left Mid-longitudinal Superficial Femoral Artery: 90% stenosis. Left Distal Superficial Femoral Artery: 95% stenosis. Lower Extremity Interventional Findings Left External Iliac Artery: 80-90% stenosis treated with Peterson Omnilink Elite Stent7.0mm x 29mm x 135cm. Left Proximal Superficial Femoral Artery: 90% stenosis treated with AB [place] 35 EPIC CUPID ANALYST Catheter [id number]. Left Mid-longitudinal Superficial Femoral Artery: 90% stenosis treated with AB [place] 35 EPIC CUPID ANALYST Catheter [id number] and [employer] Supera Peripheral Stent System 6.0mm x 100mm x 120cm. Left Distal Superficial Femoral Artery: 95% stenosis treated with Bard Lutonix 035 Drug coated balloon EPIC CUPID ANALYST catheter 5.0mm x 150mm x 130cm. Procedure detail:We dilated the distal SFA stenosis with 5.0 x 150 mm drug-eluting balloon. Same balloon was used to dilate the proximal to mid SFA. We then used 6.0 x 200 mm [place] balloon to dilate SFA and external iliac atery. We then placed a 6.0 x 100 Supera stent from proximal to mid SFA. This was followed by placement of 7.0 x 29 mm Omnilink stent and external iliac artery. At this time final angiogram showed excellent flow in the lower extremity.Patient left the label fuser tender in a stable condition. . Conclusions Severe left lower extremity peripheral artery disease. Status post balloon angioplasty and 1 stent in SFA and 1 stent in external iliac artery.. Left External Iliac Artery was treated with Stent. Left Proximal Superficial Femoral Artery was treated with Balloon. Left Mid-longitudinal Superficial Femoral Artery was treated with Balloon and Stent. Left Distal Superficial Femoral Artery was treated with Balloon. Recommendations Dual antiplatelet therapy with aspirin and plavix. Statin therapy. Outpatient cardiology follow up in 2 weeks. Hemodynamic Data Phase:Rest AO : 124.0 / 40.0 ( 70.0 ) @ 11:46:00 AM 135.0 / 49.0 ( 84.0 ) @ 12:16:00 PM 115.0 / 39.0 ( 70.0 ) @ 12:28:00 PM Access Site Site: Right Femoral artery Sheath Size: 6 Fr Hemost... Method: Suture Hemost... Success: Successful Procedure Details Findings Procedure Consent Obtained. Pre-Procedure Time Out. Identified patient by full name and date of as verbalized by the patient/guarantor. Does the consent match the physician's order: Yes. Accurate & Complete Informed Consent: Yes. Inpatient/Outpatient History & Physical on Chart: Yes. If H&P is completed, is and addenduem needed: Yes; If yes, is the addendum complete: Yes. Visualize and Verify Site with Patient/Guarantor: N/A. Relevant Radiology Images available: Yes. The risks, benefits, and alternatives of sedation and/or procedure were discussed by physician. The patient agrees to continue. Procedure started. [facility] Clinical Fraility Score: 4: Vulnerable. History Card Clerk Indications: PVD, non healing ulcer of left foot. Correct patient, site and procedure confirmed by cath team. PERRLA. Strong, equal hand senior physician bilaterally. Lungs clear x 5 lobes. IV Site on Arrival: 20 gauge in the right forearm. IV Fluids: 0.9% NaCl at KVO. 0 mL infused prior to label fuser tender. Pre Procedural Pulses: bilateral dorsalis pedis was Doppled. Pre Procedural Pulses: bilateral posterior tibial was Doppled. Pre Procedural Pulses: bilateral radial was 2+. Oxygen started at 2liters/min via nasal canula. bilateral groins was prepped with chloroprep then draped in the usual sterile fashion. Physician notified. Patient's family unavailable. Dr. Contreras will update the son, John, at the completion of the procedure. Equipment: 6F - Femoral. Cardiac Cath Pack. ACIST Manifold Kit Model BT 2000. Heparinized Saline (2 units/mL), 1000 mL bag. Kit, Micropuncture. Physician arrived. Baseline sample Acquired. HR: 73 BPM. Physician scrubbed in. Immediate Pre-Procedure Time Out. Correct Patient: Yes; Correct Procedure: Yes; Correct Site: Yes; Correct Patient Position: Yes; Correct Supplies: Yes; Dried Flammable Prep: Yes; Blood Products Available: N/A;. Lidocaine 1% infiltrated to the right groin. Arterial access obtained with micropuncture set. A 5 Fr UF catheter in over wire. Abdominal aortogram performed in AP @ 10 mL/sec for a total of 30 mL. 0.035 x 260cm stiff angled glidewire in through the UF catheter. Uf catheter out OTW. Sheath upsized to a 6 Fr. Left external iliac selected and arteriogram with runoff performed @ 10 mL/sec for a total of 30 mL. Inflation number : 1 A Bard Lutonix 035 Drug coated balloon EPIC CUPID ANALYST catheter 5.0mm x 150mm x 130cm was prepped and advanced across the Distal Superficial Femoral, Left , then inflated to 6 GRANT for 1:33 seconds. Inflation number: 2 The Bard Lutonix 035 Drug coated balloon EPIC CUPID ANALYST catheter 5.0mm x 150mm x 130cm was reinflated across the Distal Superficial Femoral, Left, to 6 GRANT for 1:38 seconds. Balloon out over wire. Inflation number : 1 A AB [place] 35 EPIC CUPID ANALYST Catheter [id number] was prepped and advanced across the Mid Superficial Femoral, Left , then inflated to 6 GRANT for 1:32 seconds. Inflation number: 1 The AB [place] 35 EPIC CUPID ANALYST Catheter [id number] was reinflated across the Proximal Superficial Femoral, Left, to 6 GRANT for 0:31 seconds. Balloon out over wire. Left external iliac selected and arteriogram with runoff performed @ 10 mL/sec for a total of 30 mL. Seeker support catheter in OTW. Glidewire out. 0.014 300cm Command guidewire in. Seeker support catheter out OTW. Inflation Number : 2 A Peterson Supera Peripheral Stent System 3.0mm x 100mm x 120cm -Lot Number# [id number] Exp. was prepped and advanced across the Mid Superficial Femoral, Left. The stent was deployed. Stent balloon out over wire. Left external iliac selected and arteriogram with runoff performed @ 10 mL/sec for a total of 20 mL. Command guidewire out. Glidewire in. Inflation Number : 1 A Peterson Omnilink Elite Stent7.0mm x 29mm x 135cm -Lot Number# [id number] Exp. was prepped and advanced across the External Iliac, Left. The stent was deployed at 11 GRANT for 0:33 seconds. Stent balloon out over wire. Left external iliac selected and arteriogram with runoff performed @ 10 mL/sec for a total of 30 mL. A Right femoral angiogram was performed to determine safe placement of closure device. Sheath upsized to a [address] Contreras scrubbed out. ACT drawn. Results seconds. Therapeutic limits - pre-heparin administration 90-150 seconds and monitoring heparin during a vascular procedure >250 seconds. A Suture was successful obtaining hemostatsis at the Right Femoral artery insertion site. Vital chart was stopped. Sheath(s) sutured into position with 2-0 silk and sterile 4x4's and Op-site applied over the site. No oozing or signs and symptoms of hematoma noted. Arterial sheath flushed and connected to tranducer and pressure bag with heparinized saline. Post Procedure: Pulses reassessed and unchanged. PERRLA. Strong, equal hand senior physician bilaterally. No VTE prophylaxis required. Medication's Wasted: Lidocaine 1% = 10 mL. Medication's Wasted: Heparin = 3000 units. Medication's Wasted: Other = Fentanyl 50mcg. Total IV fluids: 75 mL. Post-op diagnosis: Distal Left SFA ballooning, Proximal to mod left SFA ballooning and stenting, left external iliac stenting. Complications: none. Estimated blood loss: 5mL-10mL. Responsiveness - Normal response to verbal stimuli; alert and oriented, PERRLA. Airway - Unaffected, no intervention required; spontaneous ventilation. Circulation: W/N/L, pulses unchanged. Nausea/Vomiting: No. Procedure completed. Patient transferred by bed to 1st floor. Procedure Medications Start: 11:38 AM Stop: 11:38 AM Medication: Versed Amount: 1 mg Route: I.V. Start: 11:39 AM Stop: 11:39 AM Medication: Fentanyl Amount: 25 mcg Route: I.V. Start: 11:52 AM Stop: 11:52 AM Medication: Heparin Amount: 6000 units Route: I.V. Start: 12:06 PM Stop: 12:06 PM Medication: Versed Amount: 1 mg Route: I.V. Start: 12:22 PM Stop: 12:22 PM Medication: Fentanyl Amount: 25 mcg Route: I.V. Start: 12:41 PM Stop: 12:41 PM Medication: Plavix Amount: 300 mg Route: P.O. I, the attending physician, have reviewed and verified all procedure medications. Yes, all medications given per verbal order History/Risk Factors Hypertension: No Dyslipidemia: Yes Peripheral Arterial Disease (PAD): No Obesity: No Renal Disease: No Tobacco Use: Former Prior Interventions PCI: No CABG: No Valve Surgery: No Report Signatures Finalized by Kyle Contreras MD on 10/11/2025 10:44 AM
--- NOTE | 2025-09-26 11:36 | W.PM.OPSUD ---
Surgery/Procedure H&P Update DATE OF PROCEDURE: September 26, 2025 DATE H&P PERFORMED: 09/18/25 H&P UPDATE INFORMATION: I have reviewed H&P completed within last 30 days, I have examined patient prior to procedure and No changes to prior documentation PREOP DIAGNOSIS: Non-healing wound of left lower extremity/ Severe peripheral artery disease PRIMARY INDICATION FOR PROCEDURE: Non-healing wound of left lower extremity/ Severe peripheral artery disease PLANNED PROCEDURE: Operation Date: 09/26/25 10:00 Proposed Procedures p Peripheral Diagnostic - Periph Angio Bilat(Bilateral) - Kyle Contreras M.D Possible intervention PATIENT REASSESSED PRIOR TO SEDATION, WITH NO CHANGE NOTED: Yes PHYSICAL EXAM: alert, oriented x 3, clear to auscultation bilaterally and regular rate & rhythm AIRWAY EVAL/ANESTHESIA PLAN: normal airway, ASA III, Risks, benefits & alternatives of sedation and/or procedure discussed and Patient agrees to continue as planned ADDITIONAL INFORMATION: Moderate sedation
--- NOTE | 2025-09-26 13:08 | PC.NURSE ---
Patient received from logging rafter laborer at this time. Patient s/p peripheral angiogram with right femoral access. Sheath and pressure bag in place. No s/s of bleeding or hematoma formation observed. patient instructed on site care with restrictions. Patient verbalized complete understanding. Meal has been provided.
[2025-09-26 15:20] LABS: Partial Thromboplastin Time 107.8 SECONDS (23.9-36.7)
[2025-09-26 16:23] LABS: Partial Thromboplastin Time 42.6 SECONDS (23.9-36.7)
[2025-09-26] MEDS: ATORVASTATIN 20 MG TABLET PO (17:48)
--- NOTE | 2025-09-26 18:27 | PC.NURSE ---
Performed dressing change to left ankle per patient request. Cleaned area with NS and placed hydrofera blue and optifoam for comfort. Patient tolerated well.
[2025-09-27] VITALS (31 sets, daily range): BP systolic 96–154; BP diastolic 52–79; PULSE 76–112; RESP 7–34; TEMP 36.6; O2SAT 96
[2025-09-27 04:09] LABS: Hematocrit 42.1 % (37-53); Hemoglobin 13.70 g/dL (11.27-16.99); Mean Corpuscular HGB Conc 32.5 g/dL (30-55); Mean Corpuscular Hemoglobin 30.9 pg (27-33); Mean Corpuscular Volume 94.8 fl (82-101); Nucleated Red Blood Cells % 0 %; Platelet Count 154 10^3/cmm (157-399); Red Blood Count 4.44 10^6/uL (3.85-5.65); White Blood Count 6.42 10^3/uL (3.29-11.43)
[2025-09-27 04:31] LABS: Anion Gap 10.6 (5-19); Blood Urea Nitrogen 11 mg/dL (8-23); Calcium 9.2 mg/dL (8.5-10.5); Carbon Dioxide 29 mmol/L (22-29); Chloride 104 mmol/L (98-107); Glucose 115 mg/dL (65-115); Osmolality Calculated 288 mOsm/kg (285-295); Potassium 4.6 mmol/L (3.5-5.1); Sodium 139 mmol/L (136-145)
[2025-09-27] MEDS: sulfamethoxazole-trimeth DS 160-800 mg Tablet 1 TAB PO (07:36)
--- NOTE | 2025-09-27 07:40 | PC.NURSE ---
Patient is s/p peripheral angiogram with right femoral access. No s/s of bleeding or hematoma formation observed. Patient denies pain or needs. No distress observed. Discussed site care with patient. Patient verbalized understanding.
--- NOTE | 2025-09-27 08:40 | P.DS_ITS ---
<Statement entered by Kyle Contreras M.D - 09/30/25 13:31> Patient was cared for in conjunction with an advanced practice practitioner.? I reviewed the chart and all pertinent data including imaging, telemetry, and laboratory results.? I discussed the patient in detail with the advanced practice practitioner.? Please see? their documentation for discharge note, testing results and agreed upon plan of care for the patient. Discharge Providers Date of Admission: 09/26/25 Date of Discharge: September 27, 2025 Attending Provider at Discharge: Kyle Contreras M.D Primary Care Provider: JUDITH Kamara Reason for Visit Reason for Visit: I73.9 Brief History: Patient is a 70 year old male with past medical history of diabetes, current smoker, history of stroke, PAD. Referred by Dr. Leon for pressure ulcer of left ankle. Patient had revascularization of left lower extremity earlier this year. He has restarted smoking. Recent lower extremity duplex shows possible occlusion of left lower extremity again. His wound on her left ankle has worsened. Hospital Course Hospital Course He underwent peripheral angiogram yesterday, with stent to the left external iliac, proximal to mid SFA and ballon angioplasty of the distal SFA. No complications with cath site, he has been ambulating without difficulty. No leg pain. Renal function is normal. Will discharge home today with aspirin, Plavix, atorvastatin continued. Follow up in the cardiology clinic in 2 weeks. Physical Exam Const: COMMON NORMALS: no acute distress and patient oriented x3 GENERAL APPEARANCE: cooperative ORIENTATION/CONSCIOUSNESS: Yes awake, Yes oriented to person, Yes oriented to place and Yes oriented to time Chest: COMMONS NORMALS: normal inspection of the chest and normal palpation of entire chest wall CHEST: Yes Symmetrical chest wall rise Resp: COMMON NORMALS: normal respiratory effort, No retractions, No use of accessory muscles and clear to auscultation bilaterally AUSCULTATION: clear to auscultation bilaterally Cardio: COMMON NORMALS: regular rate, regular rhythm, S1 normal heart sound present, S2 normal heart sound present, No gallops present (Cardio), No clicks present (Cardio), No murmurs present (Cardio) and No rub (Cardio) RATE: regular rate RHYTHM: regular rhythm HEART SOUNDS: S1 normal heart sound present and S2 normal heart sound present PERIPHERAL PULSES: radial pulses present positive right 2+ and femoral pulses present positive right 2+ Neuro: COMMON NORMALS: patient oriented x3 and moves all extremities SENSORIUM/ORIENTATION: Yes oriented to person, Yes oriented to place and Yes oriented to time Skin: WOUNDS: Yes surgical site (no hematoma palpable) Details: no odor Discharge Data Studies Completed and Pending Pending at discharge Category Date Time Status MUSHROOM PACKER request for service Routine Exams 09/26/25 10:00 Taken Laboratory Results WBC 6.42 10^3/uL (3.29-11.43) 09/27/25 03:33 RBC 4.44 10^6/uL (3.85-5.65) 09/27/25 03:33 Hgb 13.70 g/dL (11.27-16.99) 09/27/25 03:33 Hct 42.1 % (37-53) 09/27/25 03:33 MCV 94.8 fl (82-101) 09/27/25 03:33 MCH 30.9 pg (27-33) 09/27/25 03:33 MCHC 32.5 g/dL (30-55) 09/27/25 03:33 RDW 13.5 % (12.1-15.1) 09/27/25 03:33 Plt Count 154 10^3/cmm (157-399) L 09/27/25 03:33 MPV 10.2 fL (7.4-10.4) 09/27/25 03:33 Neut % (Auto) 80.4 % 09/27/25 03:33 Lymph % (Auto) 10.4 % 09/27/25 03:33 [place] % (Auto) 6.2 % 09/27/25 03:33 Eos % (Auto) 2.0 % 09/27/25 03:33 Baso % (Auto) 0.5 % 09/27/25 03:33 Neut # (Auto) 5.16 10^3/uL (1.8-7.7) 09/27/25 03:33 Lymph # (Auto) 0.7 10^3/uL (0.8-4.8) L 09/27/25 03:33 [place] # (Auto) 0.4 10^3/uL (0.2-0.9) 09/27/25 03:33 Eos # (Auto) 0.1 10^3/uL (0.0-0.8) 09/27/25 03:33 Baso # (Auto) 0.0 10^3/uL (0.0-0.1) 09/27/25 03:33 Nucleated RBC % (auto) 0 % 09/27/25 03:33 Nucleated RBCs # 0.0 /100WBC 09/27/25 03:33 APTT 42.6 SECONDS (23.9-36.7) H D 09/26/25 15:52 Sodium 139 mmol/L (136-145) 09/27/25 03:33 Potassium 4.6 mmol/L (3.5-5.1) 09/27/25 03:33 Chloride 104 mmol/L (98-107) 09/27/25 03:33 Carbon Dioxide 29 mmol/L (22-29) 09/27/25 03:33 Anion Gap 10.6 (5-19) 09/27/25 03:33 BUN 11 mg/dL (8-23) 09/27/25 03:33 Creatinine 0.8 mg/dL (0.7-1.2) 09/27/25 03:33 GFR Calculation Not Reportable 09/27/25 03:33 Glucose 115 mg/dL (65-115) 09/27/25 03:33 Calculated Osmolality 288 mOsm/kg (285-295) 09/27/25 03:33 Calcium 9.2 mg/dL (8.5-10.5) 09/27/25 03:33 Vitals Last Vital Signs Temp 97.9 F 09/27/25 04:44 Pulse 101 H 09/27/25 07:37 Resp 16 09/27/25 07:37 BP 109/78 09/27/25 07:00 Pulse Ox 96 09/27/25 07:37 O2 Del Method Room Air 09/27/25 07:37 Discharge Plan Discharge Patient Disposition: Home Prescriptions: Continued hydrocodone-acetaminophen 10-325 mg tablet 1 tab PO Q8H PRN (Reason: Pain) clopidogrel 75 mg tablet 75 mg PO DAILY Qty: 90 2RF atorvastatin 20 mg tablet 20 mg PO QPM Qty: 90 1RF (DME) nebulizers [AeroEclipse II Nebulizer] Misc See Rx Instructions .Route Qty: 1 0RF Rx Instructions: As directed nebulizer treatment [id number] as needed ipratropium-albuterol 0.5 mg-3 mg(2.5 mg base)/3 mL solution for nebulization 3 ml inhalation Q8H PRN (Reason: wheezing) Qty: 90 0RF sulfamethoxazole-trimethoprim [Bactrim DS] 800-160 mg tablet 1 tab PO BID Qty: 20 0RF (DME) lancets Misc See Rx Instructions .Route Qty: 200 2RF Rx Instructions: USE TO CHECK BLOOD SUGAR DAILY. (DME) blood sugar diagnostic Strip See Rx Instructions .Route Qty: 100 2RF Rx Instructions: USE TO CHECK BLOOD SUGAR DAILY. Trulicity 4.5 mg/0.5 mL pen injector See Rx Instructions .ROUTE .COMPLEX Qty: 2 2RF Dose Instruction: INJECT 4.5 MG (0.5 ML) subcutaneously ONCE A WEEK Rx Instructions: INJECT 4.5 MG (0.5 ML) subcutaneously ONCE A WEEK memantine 10 mg tablet See Rx Instructions .ROUTE .COMPLEX Qty: 30 2RF Dose Instruction: TAKE 1 TABLET BY MOUTH daily FOR 30 DAYS Rx Instructions: TAKE 1 TABLET BY MOUTH daily FOR 30 DAYS gabapentin 250 mg/5 mL solution See Rx Instructions .ROUTE .COMPLEX Qty: 480 2RF Dose Instruction: TAKE 8 ML BY MOUTH EVERY 12 HOURS FOR 30 DAYS Rx Instructions: TAKE 8 ML BY MOUTH EVERY 12 HOURS FOR 30 DAYS tizanidine 4 mg tablet 4 mg PO BEDTIME PRN (Reason: Muscle Spasticity) Qty: 30 0RF pantoprazole 40 mg tablet,delayed release (DR/EC) See Rx Instructions .ROUTE .COMPLEX Qty: 30 2RF Dose Instruction: TAKE 1 TABLET BY MOUTH EVERY DAY Rx Instructions: TAKE 1 TABLET BY MOUTH EVERY DAY aspirin 81 mg Tablet,Delayed Release (Dr/Ec) 81 mg PO DAILY Qty: 90 0RF Discharge Order = DC NOW: Discharge Order (Routine); Ordered 09/27/25 Ordered By: Keely Bernal Referrals: ABNER Carson FNP [Primary Care Provider, Family Practice] Keely Bernal FNP [Nurse Practitioner, Cardiology] - 10/18/25 3:30 pm Diet: Cardiac and Diabetic Activity: Increase activity as tolerated Patient Instructions: Peripheral Vascular Stent Placement (DC), Peripheral Vascular Angioplasty (DC) Activity Restrictions/Additional Instructions: No lifting over 5 pounds for the next 4 days. Print Language: Afghan Discharge Attestations Time Spent in Discharge Care*: less than 30 min Quality Metrics Clinical Quality Measures [ No reported AMI, CVA or VTE this stay] Coding Level of Care Code Acute Code for Chg Fwd
--- NOTE | 2025-09-27 11:00 | PC.NURSE ---
Patient discharged to home. Instruction provided regarding follow up needs and post peripheral angiogram site care. Patient verbalized understanding. Ex- verbalized understanding as well. Patient taken by wheelchair to private vehicle.
== END 2025-09-27 10:55 | disposition home or self-care (01) ==
LOC: CCL 08:54 → CSU 22:27
PROVIDERS: Nurse Practitioner Family; PCP Nurse Practitioner Family; Visit Provider Internal Medicine
DX: I70.212 Atherosclerosis of native arteries of extremities with intermittent claudication, left leg (principal); E11.40 Type 2 diabetes mellitus with diabetic neuropathy, unspecified; I10 Essential (primary) hypertension; E78.5 Hyperlipidemia, unspecified; Z95.5 Presence of coronary angioplasty implant and graft; Z86.73 Personal history of transient ischemic attack (TIA), and cerebral infarction without residual deficits; Z79.02 Long term (current) use of antithrombotics/antiplatelets; Z79.891 Long term (current) use of opiate analgesic; K21.9 Gastro-esophageal reflux disease without esophagitis; Z79.82 Long term (current) use of aspirin; R01.1 Cardiac murmur, unspecified; Z82.49 Family history of ischemic heart disease and other diseases of the circulatory system; Z80.9 Family history of malignant neoplasm, unspecified; F17.210 Nicotine dependence, cigarettes, uncomplicated
CPT/HCPCS: 36415; 37221; 37226; 75625; 75710; 80048; 85025; 85347; 85730; 99152; 99153; C1725; C1769; C1876; C1887; C1894; C2623; J1644; J2250; J3010; J7030; J9999; Q0163; Q9967

== ENCOUNTER 2025-09-28 11:15 | Outpatient (CLI) | payer MEDICARE, MEDICAID, SELFPAY ==
--- NOTE | 2025-09-28 16:00 | USCV_ITS ---
Mariaelena Treviño Age: 70 Gender: M : 1955 Exam Date: 09/28/2025 11:44 Ordering Phys: Kyle Contreras M.D ([email or web address]) Technologist: NICHOLE [place] [facility] [place]: [place] Risk Factors: Previous Vascular Surgery: Right Brachial BP: 81 / 54 Left Brachial BP: 130 / 65 Right Left Velocity (cm/s) Spectral Plaque Velocity (cm/s) Spectral Plaque Syst/Diast Broadening Syst/Diast Broadening 51.70/ 11.50 Prox CCA 118.50/ 10.80 68.50/ 10.20 Mid CCA 80.10 / 7.10 46.40/ 8.90 Distal CCA 92.90 / 14.40 6.00 / 2.30 Prox ICA 59.80 / 8.90 5.50 / 0.00 Mid ICA 97.20 / 17.90 4.60 / 0.00 Distal ICA 77.20 / 14.40 69.00 ECA 158.60 0.10 ICA/CCA 1.00 Bi- Vertebral Antegrade directiona l 64.70/ 1.30 cm/s 82.10/ 11.10 cm/s Bi Subclavian Tri 58.60 203.0 0 CONCLUSIONS Marked decrease flow RIGHT ICA with near occlusion. Recommend CTA. Associated internalization of ECA with low resistance waveform Left ICA stenosis <50%. Bidirectional flow Right vertebral suspicous for early subclavian steal. Suspect Moderate Right proximal subclavian stenosis Normal antegrade Doppler flow noted in the left vertebral artery. Intimal thickening in the common carotid arteries and internal carotid arteries bilaterally. Torito Saenz MD (Electronically Signed) Final Date: 28 September 2025 17:50 S
== END 2025-09-28 11:16 | disposition home or self-care (01) ==
LOC: RAD 11:16
PROVIDERS: PCP Nurse Practitioner Family; Visit Provider Internal Medicine
DX: R42 Dizziness and giddiness (principal); I65.23 Occlusion and stenosis of bilateral carotid arteries
CPT/HCPCS: 93880; 97597; A6212

== ENCOUNTER → 2025-10-08 08:54 | Outpatient (BNVA) | payer MEDICARE, MEDICAID, SELFPAY | PROVIDERS: PCP Nurse Practitioner Family; Visit Provider Nurse Practitioner Family | DX: Z12.5 Encounter for screening for malignant neoplasm of prostate (principal); I10 Essential (primary) hypertension; E55.9 Vitamin D deficiency, unspecified; E78.2 Mixed hyperlipidemia; E11.621 Type 2 diabetes mellitus with foot ulcer; L97.509 Non-pressure chronic ulcer of other part of unspecified foot with unspecified severity; D64.9 Anemia, unspecified | CPT/HCPCS: 80053; 80061; 81003; 82306; 82607; 83036; 85025; G0103 ==

== ENCOUNTER → 2025-10-12 10:10 | Outpatient (BNVA) | payer MEDICARE, MEDICAID, SELFPAY | PROVIDERS: PCP Nurse Practitioner Family; Visit Provider Thoracic Surgery (Cardiothoracic Vascular Surgery) | DX: E11.52 Type 2 diabetes mellitus with diabetic peripheral angiopathy with gangrene (principal); E11.622 Type 2 diabetes mellitus with other skin ulcer; L97.321 Non-pressure chronic ulcer of left ankle limited to breakdown of skin | CPT/HCPCS: 97597; A6212 ==

== ENCOUNTER → 2025-10-18 15:10 | Outpatient (BNVA) | payer MEDICARE, MEDICAID, SELFPAY | PROVIDERS: PCP Nurse Practitioner Family; Visit Provider Nurse Practitioner Family | DX: I73.9 Peripheral vascular disease, unspecified (principal); I65.21 Occlusion and stenosis of right carotid artery; I10 Essential (primary) hypertension; Z87.891 Personal history of nicotine dependence | CPT/HCPCS: 99214 ==

== ENCOUNTER → 2025-10-26 09:57 | Outpatient (BNVA) | payer MEDICARE, MEDICAID, SELFPAY | PROVIDERS: PCP Nurse Practitioner Family; Visit Provider Thoracic Surgery (Cardiothoracic Vascular Surgery) | DX: E11.52 Type 2 diabetes mellitus with diabetic peripheral angiopathy with gangrene (principal); E11.622 Type 2 diabetes mellitus with other skin ulcer; L97.321 Non-pressure chronic ulcer of left ankle limited to breakdown of skin | CPT/HCPCS: 97597; A6212; A6251 ==